=== PATIENT | male | born 1970 | race Hispanic/Latino ===

== ENCOUNTER 2020-07-10 17:37 | Emergency (ER) | payer SELFPAY ==
[~2020-07-10] VITALS: Ht 182.9 cm; Wt 106.0 kg
[2020-07-10] MEDS ORDERED: LANTINJ4 SC (17:50)
[2020-07-10] MEDS ORDERED: cefTRIAXone SOD 1 GM in D5W MINI-BAG PLUS 50 ML IV ONE (18:30)
[2020-07-10 19:13] LABS: BASO % 0.5 % (0.0-1.0); EOS # 0.2 10^3/uL (0.0-0.5); EOS % 2.4 % (0.0-3.0); HEMATOCRIT 42.7 % (42.0-52.0); HEMOGLOBIN 14.2 g/dl (13.5-17.5); LYMPH # 2.1 10^3/uL (1.5-5.0); LYMPH % 27.6 % (24.0-44.0); MEAN CORPUSCULAR HEMOGLOBIN 28.7 pg (27.0-33.0); MEAN CORPUSCULAR HGB CONC 33.3 g/dl (32.0-36.5); MEAN CORPUSCULAR VOLUME 86.4 fl (80.0-96.0); MONO # 0.7 10^3/uL (0.0-0.8); MONO % 9.4 % (0.0-5.0); NEUTROPHILS # 4.5 10^3/uL (1.5-8.5); PLATELET COUNT, AUTOMATED 190 10^3/uL (150-450); RED BLOOD COUNT 4.94 10^6/uL (4.30-6.10); WHITE BLOOD COUNT 7.4 10^3/uL (4.0-10.0)
[2020-07-10 19:35] LABS: ERYTHROCYTE SEDIMENTATION RATE 25 mm/hr (0-15)
[2020-07-10 19:46] LABS: C REACTIVE PROTEIN QUANTITATIV 1.89 MG/DL (0.00-0.30); CALCIUM LEVEL 8.6 MG/DL (8.5-10.1); CREATININE FOR GFR 1.7 MG/DL (0.70-1.30); POTASSIUM SERUM 4.5 MEQ/L (3.5-5.1)
[2020-07-10] MEDS ORDERED: NS 1,000 ML IV ONE (20:00)
[2020-07-10 20:29] LABS: ACETONE/KETONE 0.89 MG/DL (<2.81); MAGNESIUM LEVEL 2.1 MG/DL (1.8-2.4); PHOSPHORUS LEVEL 4.2 MG/DL (2.5-4.9)
[2020-07-10] MEDS ORDERED: LEVEMIR (INSULIN DETEMIR) 1 UNITS/0.01ML SC ONE (20:45)
[2020-07-10 20:50] LABS: VENOUS HCO3 23.2 MEQ/L (23.0-27.0); VENOUS O2 SATURATION 94.4 % (60.0-80.0); VENOUS PARTIAL PRESSURE CO2 41.3 mmHg (38.0-50.0); VENOUS PARTIAL PRESSURE O2 71.4 mmHg (30.0-50.0); VENOUS PH 7.368 UNITS (7.330-7.430); VENOUS STANDARD HCO3 22.8 MEQ/L; VENOUS TOTAL CO2 24.5 MEQ/L (24.0-28.0)
--- NOTE | 2020-07-10 20:50 | REPVR ---
PROCEDURE INFORMATION: Exam: US Left Non-Vascular Joint or Other Extremity Structure, Limited Lower Extremity Exam date and time: 07/10/2020 8:35 PM Age: 50 years old Clinical indication: Pain and injury or trauma; Other: Patient hit lateral leg on corner; Ankle; Left; Edema is localized; Blunt trauma; Injury date: 07/03/2020; Additional info: Res swollen, RO abscess TECHNIQUE: Imaging protocol: Left US joint or other nonvascular extremity structure or structures. Real-time ultrasound with image documentation. Limited study. Exam focused on the lower extremity in the region of clinical interest. COMPARISON: No relevant prior studies available. FINDINGS: Soft tissues: Scanning in the area of interest demonstrates edema with a hypoechoic elongated collection measuring 12 x 14 x 4 mm which may reflect seroma, hematoma or possibly abscess. IMPRESSION: In the area of interest, there is subcutaneous edema with an elongated fluid collection measuring 12 x 14 x 4 mm which may reflect seroma, hematoma or possibly abscess. Electronically signed by: Bronson Vogel On 07/10/2020 20:50:41 PM
[2020-07-10 21:32] LABS: ESTIMATED AVERAGE GLUCOSE 355 MG/DL (60-110)
[2020-07-10 21:36] LABS: HEMOGLOBIN A1c > 14.0 %
--- NOTE | 2020-07-10 21:52 | REPVR ---
PROCEDURE INFORMATION: Exam: XR Left Tibia and Fibula Exam date and time: 07/10/2020 9:46 PM Age: 50 years old Clinical indication: Other: Red/swollen distal tib-fib laterally; Additional info: Red, swollen area TECHNIQUE: Imaging protocol: XR Left tibia and fibula. Views: 2 views. COMPARISON: No relevant prior studies available. FINDINGS: Bones/joints: Normal. No fracture. Soft tissues: Normal. IMPRESSION: Negative left tibia and fibula. Electronically signed by: Bronson Vogel On 07/10/2020 21:52:25 PM
[2020-07-10] MEDS ORDERED: METOPROLOL TART 25 MG TABLET PO ONE (22:00)
[2020-07-10] MEDS ORDERED: METOPROLOL 5 MG/5 ML VIAL IV STA (22:02)
[2020-07-10 22:11] VITALS: BP 202/123
--- NOTE | 2020-07-10 22:23 | ECGEPIP ---
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
[2020-07-10 23:10] VITALS: BP 168/110
[2020-07-10] MEDS ORDERED: BACT800T5 PO (23:20)
--- NOTE | 2020-07-12 09:09 | ED PDOC ---
Post-Departure Follow-Up marisela osullivan faxed formal report of extremity us for fu Marleni Henson MD Jul 12, 2020 09:09
== END 2020-07-10 23:33 | disposition home or self-care (01) ==
LOC: M ED 17:37
DX: L03.116 Cellulitis of left lower limb (principal); E11.9 Type 2 diabetes mellitus without complications; I10 Essential (primary) hypertension; I25.10 Atherosclerotic heart disease of native coronary artery without angina pectoris; Z79.4 Long term (current) use of insulin
CPT/HCPCS: 73590; 76882; 80048; 82010; 82803; 83036; 83605; 83735; 83930; 84100; 85025; 85652; 86140; 87040; 93005; 96365; 96372; 96375; 99284; J0696

== ENCOUNTER 2020-11-06 14:40 | Emergency (ER) | payer MEDICAID, OTHER ==
[~2020-11-06] VITALS: Ht 182.9 cm; Wt 105.3 kg
[~2020-11-06 14:40] MED LIST: BACT800T5 PO; LANTINJ4 SC
[2020-11-06] MEDS ORDERED: ATOR80TA59 PO (14:53)
[2020-11-06] MEDS ORDERED: METO50TA7 PO (14:53)
[2020-11-06] MEDS ORDERED: CLOP75TA2 PO (14:53)
[2020-11-06] MEDS ORDERED: JARD1TAB3 PO (14:53)
[2020-11-06] MEDS ORDERED: LISI10TA22 PO (14:53)
[2020-11-06 15:20] LABS: BASO # 0.1 10^3/uL (0.0-0.2); BASO % 0.7 % (0.0-1.0); EOS # 0.2 10^3/uL (0.0-0.5); EOS % 1.5 % (0.0-3.0); HEMATOCRIT 42.5 % (42.0-52.0); HEMOGLOBIN 13.9 g/dl (13.5-17.5); LYMPH # 1.7 10^3/uL (1.5-5.0); LYMPH % 14.2 % (24.0-44.0); MEAN CORPUSCULAR HEMOGLOBIN 28.7 pg (27.0-33.0); MEAN CORPUSCULAR HGB CONC 32.7 g/dl (32.0-36.5); MEAN CORPUSCULAR VOLUME 87.6 fl (80.0-96.0); MONO # 0.9 10^3/uL (0.0-0.8); MONO % 7.3 % (2.0-8.0); NEUTROPHILS % 75.9 % (36.0-66.0); PLATELET COUNT, AUTOMATED 259 10^3/uL (150-450); RED BLOOD COUNT 4.85 10^6/uL (4.30-6.10); WHITE BLOOD COUNT 11.8 10^3/uL (4.0-10.0)
[2020-11-06] MEDS ORDERED: ISOVUE-370 76% 100ML VIAL As Ordered ONE (15:43)
[2020-11-06 15:52] LABS: ALBUMIN 2.6 GM/DL (3.2-5.2); ALT/SGPT 20 U/L (12-78); BILIRUBIN,DIRECT < 0.1 MG/DL (0.0-0.2); BILIRUBIN,TOTAL 0.4 MG/DL (0.2-1.0); CK-MB VALUE MASS 2.5 NG/ML (<3.6); CPK CREATINE PHOSPHOKINASE 194 U/L (39-308); LIPASE 238 U/L (73-393); MB/CK RELATIVE INDEX 1.29 (< OR =4); TOTAL PROTEIN 6.9 GM/DL (6.4-8.2); TROPONIN I < 0.02 NG/ML (< 0.10)
[2020-11-06] MEDS ORDERED: NS 500 ML IV ONE ×2 (16:45→17:45)
--- NOTE | 2020-11-06 17:04 | REP ---
INDICATION: abdominal pain COMPARISON: None. TECHNIQUE: CT Scan of the abdomen and pelvis was performed with intravenous administration of 100 cc of Isovue 370, without oral contrast. Sagittal and coronal reconstruction images are performed. FINDINGS: Lung bases: There is elevation of the right hemidiaphragm with bilateral fibro atelectatic change.. Liver: Normal Gallbladder: Unremarkable. Spleen: Normal. Adrenals: Normal. Pancreas: Normal. Kidneys: The right kidney is atrophic. There is a 1 cm cyst in the upper pole right kidney. There is no hydronephrosis bilaterally. Small and large bowel: Unremarkable. Free fluid: None. Abdominal aorta: No aneurysm or dissection. Adenopathy: None. Appendix: Not inflamed. Osseous structures: There are degenerative changes of the spine without compression deformity. Pelvis: No mass. IMPRESSION: No acute findings in the abdomen or pelvis. <Electronically signed by Vincenzo Moyer > 11/06/20 [id number]
[2020-11-06 17:49] LABS: CHLAMYDIA DNA AMPLIFICATION NEGATIVE (NEGATIVE); GC DNA AMPLIFICATION NEGATIVE (NEGATIVE)
[2020-11-06] MEDS ORDERED: CEFD300CAP PO ×2 (17:53→18:56)
[2020-11-06 19:01] VITALS: BP 190/120
--- NOTE | 2020-11-07 19:43 | ECGEPIP ---
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
== END 2020-11-06 19:04 | disposition home or self-care (01) ==
LOC: M ED 14:40
DX: N34.1 Nonspecific urethritis (principal); K59.00 Constipation, unspecified; I10 Essential (primary) hypertension; N30.00 Acute cystitis without hematuria; I25.10 Atherosclerotic heart disease of native coronary artery without angina pectoris; Z95.5 Presence of coronary angioplasty implant and graft; E11.9 Type 2 diabetes mellitus without complications; E78.5 Hyperlipidemia, unspecified; Z95.1 Presence of aortocoronary bypass graft; Z79.4 Long term (current) use of insulin; Z79.899 Other long term (current) drug therapy
CPT/HCPCS: 74177; 80047; 80076; 81001; 82550; 82553; 83690; 85025; 87086; 87661; 93005; 96360; 96361; 99284; Q9967

== ENCOUNTER 2020-12-23 10:34 | Inpatient (IN) | payer OTHER ==
[2020-12-23] VITALS (9 sets, daily range): BP systolic 100–138; BP diastolic 62–85
[~2020-12-23] VITALS: Ht 182.9 cm; Wt 106.6 kg
[~2020-12-23 10:34] MED LIST changes: +ATOR80TA59 PO; +CEFD300CAP PO; +CLOP75TA2 PO; +JARD1TAB3 PO; +LISI10TA22 PO; +METO50TA7 PO
[2020-12-23] MEDS ORDERED: NS 1,000 ML IV ONE ×3 (11:15→13:05)
[2020-12-23 11:49] LABS: ABG BASE EXCESS -13.1 (-2.0-2.0); ABG HCO3 11.5 MEQ/L (22.0-26.0); ABG O2 SATURATION 98.7 % (95.0-99.0); ABG PARTIAL PRESSURE CO2 24.5 mmHg (35.0-45.0); ABG PARTIAL PRESSURE O2 131.9 mmHg (75.0-100.0); ABG STANDARD HCO3 14.5 MEQ/L (22.0-26.0); ABG TOTAL CO2 12.3 MEQ/L (22.0-29.0); ABG pH (ARTERIAL) 7.291 UNITS (7.350-7.450)
[2020-12-23 11:59] LABS: HEMOGLOBIN 13.9 g/dl (13.5-17.5); MEAN CORPUSCULAR HEMOGLOBIN 28.8 pg (27.0-33.0); MEAN CORPUSCULAR HGB CONC 30.2 g/dl (32.0-36.5); MEAN CORPUSCULAR VOLUME 95.2 fl (80.0-96.0); PLATELET COUNT, AUTOMATED 283 10^3/uL (150-450); RED BLOOD COUNT 4.83 10^6/uL (4.30-6.10)
[2020-12-23 12:01] LABS: WHITE BLOOD COUNT 31.4 10^3/uL (4.0-10.0)
[2020-12-23] MEDS ORDERED: LIDOCAINE 2% 5ML JELLY UROJET TOP ONE (12:05)
--- NOTE | 2020-12-23 12:12 | REP ---
INDICATION: DKA. COMPARISON: No comparison chest x-ray. TECHNIQUE: Portable upright AP chest radiograph. FINDINGS: Right hemidiaphragm is somewhat elevated. There prior sternotomy wires and mediastinal clips noted. Heart is not enlarged.. The lungs are otherwise well inflated and free of infiltrate. Minimal platelike atelectasis is suspected in the right base. No infiltrate is seen. Pleural angles are sharp. No acute bony abnormality. IMPRESSION: Prior median sternotomy. Elevated right hemidiaphragm. Suspected platelike atelectasis right base. Otherwise no acute disease.. <Electronically signed by Ricardo Ann > 12/23/20 [id number]
--- NOTE | 2020-12-23 12:13 | REP ---
INDICATION: fall. COMPARISON: None. TECHNIQUE: Portably obtained AP supine view of the pelvis. Single-view. FINDINGS: Bony pelvic ring appears intact. No pelvic or sacral fracture is seen. No proximal femur fracture is appreciated. Visualized bowel gas pattern is unremarkable. IMPRESSION: Negative AP view of the pelvis. No fracture seen. <Electronically signed by Ricardo Ann > 12/23/20 [id number]
[2020-12-23 12:17] LABS: LYMPHOCYTES 2 % (16-44); MONOCYTES 4 % (0-5); NEUTROPHILS 75 % (28-66); PLATELET ESTIMATE NORMAL (NORMAL)
[2020-12-23 12:18] LABS: ANISOCYTOSIS 1+; HYPOCHROMASIA 1+; PLATELET CLUMPS SMALL AMT
[2020-12-23 12:19] LABS: TEAR DROP CELLS 1+
--- NOTE | 2020-12-23 12:28 | REP ---
INDICATION: DKA. COMPARISON: None. TECHNIQUE: Axial CT images with multiplanar reformations. FINDINGS: No acute bleed or acute large vessel territorial infarct. Ventricles, cisterns and sulci are within normal limits. No mass effect or midline shift. No abnormal fluid collections. Paranasal sinuses and mastoid air cells are clear IMPRESSION: No acute findings. <Electronically signed by Jalen Good > 12/23/20 [id number]
--- NOTE | 2020-12-23 12:30 | REP ---
INDICATION: DKA. COMPARISON: None. TECHNIQUE: Axial CT images with multiplanar reformations. FINDINGS: No acute fracture or subluxation. Prevertebral soft tissues within normal limits. Craniovertebral junction is unremarkable. On the review of axial images, no definite canal or foraminal stenosis. IMPRESSION: No acute findings. <Electronically signed by Jalen Good > 12/23/20 [id number]
[2020-12-23 12:55] LABS: AMPHETAMINES LEVEL URINE NEGATIVE (NEGATIVE); BARBITURATES URINE NEGATIVE (NEGATIVE); BENZODIAZEPINES URINE NEGATIVE (NEGATIVE); CANNABINOIDS URINE NEGATIVE (NEGATIVE); COCAINE METABOLITE URINE NEGATIVE (NEGATIVE); METHADONE URINE NEGATIVE (NEGATIVE); OPIATES URINE NEGATIVE (NEGATIVE); PHENCYCLIDINE URINE NEGATIVE (NEGATIVE)
[2020-12-23 12:59] LABS: ALBUMIN 1.9 GM/DL (3.2-5.2); ALT/SGPT 30 U/L (12-78); BILIRUBIN,DIRECT 0.2 MG/DL (0.0-0.2); BILIRUBIN,TOTAL 0.6 MG/DL (0.2-1.0); BLOOD UREA NITROGEN 73 MG/DL (7-18); CALCIUM LEVEL 8.9 MG/DL (8.5-10.1); CARBON DIOXIDE LEVEL 16 MEQ/L (21-32); CHLORIDE LEVEL 100 MEQ/L (98-107); CK-MB VALUE MASS 1.5 NG/ML (<3.6); CPK CREATINE PHOSPHOKINASE 220 U/L (39-308); CREATININE FOR GFR 2.67 MG/DL (0.70-1.30); ETHYL ALCOHOL (ETHANOL) < 0.003 % (0.000-0.010); GLOMERULAR FILTRATION RATE 27.3 (>60); LIPASE 449 U/L (73-393); MAGNESIUM LEVEL 3.9 MG/DL (1.8-2.4); MB/CK RELATIVE INDEX 0.68 (< OR =4); PHOSPHORUS LEVEL 7.5 MG/DL (2.5-4.9); POTASSIUM SERUM 5.6 MEQ/L (3.5-5.1); SODIUM LEVEL 136 MEQ/L (136-145); TOTAL PROTEIN 6.9 GM/DL (6.4-8.2); TROPONIN I < 0.02 NG/ML (< 0.10)
[2020-12-23 13:00] LABS: OSMOLALITY SERUM 375 MOSM/KG (275-295)
[2020-12-23] MEDS ORDERED: INSULIN REGULAR IN 0.9 % NACL 100 UNIT in IV 1 EA IV SCH ×2 (13:00)
[2020-12-23] MEDS ORDERED: INSULIN IV RATE CHANGE DOCUMENTATION ML/HR XX SCH (13:00)
[2020-12-23] MEDS ORDERED: HumuLIN R (REGULAR) INSULIN (NovoLIN R) **100U/ML** PER UNIT IV ONE (13:00)
[2020-12-23] MEDS ORDERED: PIPERACILLIN/TAZOBACTAM SOD 4.5 GM in D5W MINI-BAG PLUS 50 ML IV ONE (13:05)
[2020-12-23 13:18] LABS: ACETONE/KETONE > 46.00 MG/DL (<2.81); GLUCOSE, FASTING 1037 MG/DL (70-100)
[2020-12-23] MEDS ORDERED: NS 1,000 ML IV SCH (13:40)
[2020-12-23] MEDS: INSULIN REGULAR IN 0.9 % NACL 100 UNIT in IV 1 EA IV SCH ×4 (14:00→22:38)
[2020-12-23 14:04] LABS: ABG BASE EXCESS -13.3 (-2.0-2.0); ABG HCO3 10.7 MEQ/L (22.0-26.0); ABG O2 SATURATION 97.7 % (95.0-99.0); ABG PARTIAL PRESSURE CO2 21.4 mmHg (35.0-45.0); ABG PARTIAL PRESSURE O2 106.6 mmHg (75.0-100.0); ABG STANDARD HCO3 14.3 MEQ/L (22.0-26.0); ABG TOTAL CO2 11.3 MEQ/L (22.0-29.0); ABG pH (ARTERIAL) 7.316 UNITS (7.350-7.450)
--- NOTE | 2020-12-23 14:12 | HPEPDOC ---
General Date of Admission 12/23/20 Date of Service: Dec 23, 2020 Chief Complaint The patient is a 50-year-old male admitted with a reason for visit of Elevated Blood Sugar. Source: Patient Exam Limitations: No limitations Timing/Duration: Day(s) Severity: Severe History of Present Illness Patient is 50 years old male with past history of coronary artery diseases, CABG, diabetes mellitus on insulin Lantus 50 units twice a day, hyperlipidemia presented to the hospital with lethargy and altered mental status. Patient somnolent and can't provide detailed history. According to the ER physician, patient was found on the street by EMS. Patient stated that he ran out of his diabetes medication for one week. He moved to [place] from [place] recently and doesn't have PCP. In ER patient was found to have white blood count of 31.4, hemoglobin 15.9, glucose level 1037, creatinine 2.6, potassium 5.6, blood osmolarity 375, lipase level 449. Head CT negative. Chest x-ray negative for acute infiltrate. Home Medications Scheduled Atorvastatin Calcium (Atorvastatin Calcium) 80 Mg Tablet, 80 MG PO DAILY, (Reported) Clopidogrel Bisulfate (Clopidogrel) 75 Mg Tablet, 75 MG PO DAILY, (Reported) Empagliflozin (Jardiance) 25 Mg Tablet, 25 MG PO DAILY, (Reported) Lisinopril (Lisinopril) 10 Mg Tablet, 10 MG PO DAILY, (Reported) Metoprolol Tartrate (Metoprolol Tartrate) 50 Mg Tablet, 50 MG PO DAILY, (Reported) Allergies Coded Allergies: No Known Drug Allergies (Verified Allergy, Unknown, 07/10/20) Past Medical History Medical History Coronary artery diseases, status post CABG around 2-3 years ago, hyperlipidemia, diabetes mellitus type2 Family History I was not able to obtain due to lethargy Social History * Smoker: Denies Alcohol: Denies Drugs: denies A-FIB/CHADSVASC A-FIB History Current/History of A-Fib/PAF?: No Current PO Anticoag Therapy: No Review of Systems Constitutional: Reports: Chills, Malaise, Weakness; Denies: Fever Eyes: Denies: Pain ENT: Denies: Head Aches Skin: Denies: Rash Pulmonary: Denies: Cough Cardiovascular: Denies: Chest Pain Gastrointestinal: Reports: Nausea, Vomiting, Abdominal Pain Genitourinary: Reports: Dysuria, Frequency Hematologic: Denies: Bruising Endocrine: Reports: Polydipsia Musculoskeletal: Denies: Neck Pain, Back Pain Neurological: Denies: Weakness Psych: Reports: Other Psych; Denies: Thoughts of Self Harm Physical Examination General Exam: Positive: Moderate Distress, Other (somnolent male) Eye Exam: Positive: PERRLA ENT Exam: Positive: Atraumatic Neck Exam: Positive: Supple; Negative: JVD Chest Exam: Positive: Clear to auscultation Heart Exam: Positive: Tachycardic Telemetry: Positive: Sinus Abdomen Exam: Positive: BS Hypoactive Extremity Exam: Negative: Clubbing, Cyanosis Skin Exam: Positive: Breakdown (left distal leg wound stage II with surrounding erythema 3 X4 cm) Neuro Exam: Positive: Cranial Nerves 3-12 NL Psych Exam: Positive: Other (somnolent male) Vital Signs Vital Signs Date Time Temp Pulse Resp B/P (MAP) Pulse Ox O2 Delivery O2 Flow Rate FiO2 12/23/20 13:03 100 18 144/88 (106) 100 Room Air 12/23/20 10:50 96.6 Laboratory Data Labs 24H Laboratory Tests 2 12/23/20 11:30: Blood Gas Bicarbonate Standard 14.5L, Arterial Blood pH 7.291L, Arterial Blood Partial Pressure CO2 24.5L, Arterial Blood Partial Pressure O2 131.9H, Arterial Blood Total CO2 12.3L, Arterial Blood HCO3 11.5L, Arterial Blood Base Excess - 13.1L, Arterial Blood Oxygen Saturation 98.7 12/23/20 11:32: Neutrophils (%) (Auto) , Nucleated Red Blood Cells % (auto) 0.0, Neutrophils 75H, Band Neutrophils 19H, Lymphocytes (Manual) 2L, Monocytes (Manual) 4, Hypochromasia 1+, Anisocytosis 1+, Macrocytosis 1+, Tear Drop Cells 1+, Platelet Estimate NORMAL, Clumped Platelets SMALL AMT, Urine Color YELLOW, Urine Appearance HAZY, Urine pH 5.0, Urine Specific [place] 1.022, Urine Protein 2+H, Urine Glucose (UA) 3+H, Urine Ketones 1+H, Urine Blood 2+H, Urine Nitrite NEGATIVE, Urine Bilirubin NEGATIVE, Urine Urobilinogen 0.2, Urine Leukocyte Esterase NEGATIVE, Urine WBC (Auto) 29H, Urine RBC (Auto) 6H, Urine Hyaline Zachariah ts (Auto) 0, Urine Bacteria (Auto) 1+H, Urine Squamous Epithelial Cells 0, Urine Mucus (Auto) SMALL, Urine Sperm (Auto) , Anion Gap 20H, Glomerular Filtration Rate 27.3L, Osmolality 375H, Calcium Level 8.9, Phosphorus Level 7.5H, Magnesium Level 3.9H, Total Bilirubin 0.6, Direct Bilirubin 0.2, Aspartate Amino Transf (AST/SGOT) 25, Alanine Aminotransferase (ALT/SGPT) 30, Alkaline Phosphatase 291H, Total Creatine Kinase 220, Creatine Kinase MB 1.5, Creatine Kinase MB Relative Index 0.68, Troponin I < 0.02, Total Protein 6.9, Albumin 1.9L, Albumin/Globulin Ratio 0.4, Lipase 449H, Urine Opiates Screen NEGATIVE, Urine Methadone Screen NEGATIVE, Urine Barbiturates Screen NEGATIVE, Urine Phencyclid ine Screen NEGATIVE, Urine Amphetamines Screen NEGATIVE, Urine Benzodiazepines Screen NEGATIVE, Urine Cocaine Metabolite Screen NEGATIVE, Urine Cannabinoids Screen NEGATIVE, Ethyl Alcohol Level < 0.003, B-Hydroxybutyrate > 46.00H 12/23/20 11:33: CBC/BMP Laboratory Tests 12/23/20 11:32 Microbiology Microbiology 12/23/20 Respiratory Virus Panel (PCR) (CHIDI) - Final, Complete 12/23/20 Urine Culture, Received Pending 12/23/20 Blood Culture, Received Pending Assessment/Plan Patient is 50 years old male with past history of coronary artery diseases, CABG, diabetes mellitus on insulin Lantus 50 units twice a day, hyperlipidemia presented to the hospital with lethargy and altered mental status. Patient somnolent and can't provide detailed history. According to the ER physician, patient was found on the street by EMS. Patient stated that he ran out of his diabetes medication for one week. He moved to [place] from [place] recently and doesn't have PCP. In ER patient was found to have white blood count of 31.4, hemoglobin 15.9, glucose level 1037, creatinine 2.6, potassium 5.6, blood osmolarity 375, lipase level 449. Head CT negative. Chest x-ray negative for acute infiltrate. Problems (1) DKA (diabetic ketoacidoses) Status: Acute Problem Text: Secondary to noncompliance to insulin Insulin drip IV BMP every 2 hours times 3 then q4h Aggressive IV fluid Monitor ABG (2) Sepsis Status: Acute Problem Text: Patient has tachycardia, leukocytosis, tachypnea on admission Most likely source of infection left distal leg stage II] Will proceed with CT abdomen/pelvis/CT chest IV fluid Ceftaroline IV MRSA screen Await blood culture, procalcitonin (3) Cellulitis Status: Acute Problem Text: Stage II unhealed wound with surrounding erythema MRSA screen Ceftaroline IV (4) Acute renal failure Status: Acute Problem Text: Most likely secondary to dehydration due to DKA IV fluid Continue to monitor (5) Leg ulcer, left Status: Acute Problem Text: wound care consult Plan / VTE VTE Prophylaxis Ordered?: Yes CIARA UGALDE DO Dec 23, 2020 14:12
--- NOTE | 2020-12-23 14:30 | REP ---
INDICATION: elev wbc dka. COMPARISON: None TECHNIQUE: Limited noncontrast enhanced chest CT obtained using standard helical technique. FINDINGS: There is no gross mediastinal or hilar adenopathy. There are no pleural or pericardial effusions. The imaged osseous structures are within normal limits. The patient is status post previous median sternotomy. Evaluation of the lung veronica shows numerable scattered pulmonary nodules and asymmetric densities. These vary in size from 3 mm to over a cm. The are too numerous to count or individually assess. IMPRESSION: Limited noncontrast enhanced examination shows abnormal lung veronica as described above. Neoplastic versus infectious versus atelectatic in etiology. Three-month follow-up diagnostic contrast-enhanced CT examination of the chest is recommended as per the revised Fleischner society criteria. Certainly, if clinically warranted PET-CT could be obtained. <Electronically signed by Ty Mcdaniel > 12/23/20 0141
--- NOTE | 2020-12-23 14:41 | REP ---
INDICATION: elev wbc dka. COMPARISON: 11/06/2020 the latest prior a contrast-enhanced exam TECHNIQUE: Limited noncontrast enhanced CT examination of the abdomen and pelvis using standard helical technique and without the administration of oral bowel preparatory contrast. FINDINGS: Limited evaluation of the solid intra-abdominal organs and gallbladder show no gross abnormalities or significant changes from the prior exam. Limited evaluation of the pancreas and adrenal glands show no gross abnormalities or significant changes from the prior exam. Limited evaluation of the adrenal glands and right kidney show no gross abnormalities or significant changes from the prior exam. Chronic right renal atrophic changes are again noted. Moderate left-sided hydronephrosis and hydroureter has developed since the last exam. There is mild associated Antonina ureteral edema. There is rather extensive perivesicular edema with abnormal thickening of the posterior and left urinary bladder fernandez no definite urinary collecting system calcifications are identified. Note is again made of calcifications within the seminal vesicles and pelvic vascular structures status quo. Limited evaluation of the bowel loops show no abnormalities or significant changes from the prior exam. Limited evaluation of the abdominal aorta and para aortic regions show no gross abnormalities or significant changes from the prior exam. Bone window technique throughout the examination shows the osseous structures to be within normal limits. IMPRESSION: There is abnormal thickening of the fernandez of the urinary bladder, as described above, along with perivesicular fatty infiltration. This is seen in conjunction with reactive left-sided hydronephrosis and hydroureter with both findings likely secondary to urosepsis. Certainly, this would need to be correlated clinically. Other findings as described above. <Electronically signed by Ty Mcdaniel > 12/23/20 [id number]
[2020-12-23 15:35] LABS: CALCIUM LEVEL 8.7 MG/DL (8.5-10.1); CREATININE FOR GFR 2.67 MG/DL (0.70-1.30); GLOMERULAR FILTRATION RATE 27.3 (>60); POTASSIUM SERUM 4.2 MEQ/L (3.5-5.1)
[2020-12-23] MEDS ORDERED: CLOPIDOGREL 75 MG TAB PO ONE (16:00)
[2020-12-23] MEDS ORDERED: ATORVASTATIN 20 MG TAB PO ONE (16:00)
[2020-12-23 16:16] LABS: ABG BASE EXCESS -7.3 (-2.0-2.0); ABG HCO3 15.6 MEQ/L (22.0-26.0); ABG O2 SATURATION 95.5 % (95.0-99.0); ABG PARTIAL PRESSURE CO2 25.6 mmHg (35.0-45.0); ABG PARTIAL PRESSURE O2 75.7 mmHg (75.0-100.0); ABG STANDARD HCO3 18.5 MEQ/L (22.0-26.0); ABG TOTAL CO2 16.4 MEQ/L (22.0-29.0); ABG pH (ARTERIAL) 7.404 UNITS (7.350-7.450)
[2020-12-23] MEDS: PANTOPRAZOLE 40MG VIAL (C9113 PER 1) IV SCH (16:23)
[2020-12-23] MEDS: CEFTAROLINE FOSAMIL 400 MG in D5W MINI-BAG PLUS 50 ML IV SCH (16:25)
[2020-12-23] MEDS: KCL 20MEQ in NS 1000ML 1,000 ML IV SCH ×2 (16:38→22:05)
[2020-12-23 16:57] LABS: CALCIUM LEVEL 8.6 MG/DL (8.5-10.1); CREATININE FOR GFR 2.47 MG/DL (0.70-1.30); GLOMERULAR FILTRATION RATE 29.9 (>60)
[2020-12-23 16:58] LABS: POTASSIUM SERUM 5.2 MEQ/L (3.5-5.1)
[2020-12-23 18:43] LABS: CALCIUM LEVEL 9.2 MG/DL (8.5-10.1); CREATININE FOR GFR 2.52 MG/DL (0.70-1.30); GLOMERULAR FILTRATION RATE 29.2 (>60); POTASSIUM SERUM 4.3 MEQ/L (3.5-5.1)
[2020-12-23 19:12] LABS: HEMOGLOBIN A1c > 14.0 %
[2020-12-23 20:40] LABS: CALCIUM LEVEL 9.2 MG/DL (8.5-10.1); CREATININE FOR GFR 2.62 MG/DL (0.70-1.30); GLOMERULAR FILTRATION RATE 27.9 (>60); PHOSPHORUS LEVEL 2.6 MG/DL (2.5-4.9); POTASSIUM SERUM 4.8 MEQ/L (3.5-5.1)
[2020-12-23] MEDS ORDERED: CEFTAROLINE FOSAMIL 200 MG in D5W 50 ML IV SCH (21:00)
[2020-12-23] MEDS: ACETAMINOPHEN TAB 650MG DOSE (2X325MG) PO PRN (21:11)
--- NOTE | 2020-12-23 22:03 | IPNPDOC ---
Text Note Date of Service The patient was seen on 12/23/20. NOTE #pseudohypernatremia Increase in Na from 143 to 162 likely lab error. The repeat Na was 145 Plan: will c/w current fluids VS,Fishbone, I+O VS, Fishbone, I+O Laboratory Tests 12/23/20 11:32 12/23/20 14:49 12/23/20 15:54 12/23/20 17:52 12/23/20 19:53 12/23/20 21:12 Vital Signs Date Time Temp Pulse Resp B/P (MAP) Pulse Ox O2 Delivery O2 Flow Rate FiO2 12/23/20 20:00 100.0 132 19 138/82 (100) 93 Room Air ROSEANN STEPHENSON MD Dec 23, 2020 22:03
[2020-12-23 22:18] LABS: ABG BASE EXCESS -2.3 (-2.0-2.0); ABG PARTIAL PRESSURE CO2 27.8 mmHg (35.0-45.0); ABG STANDARD HCO3 22.4 MEQ/L (22.0-26.0); ABG TOTAL CO2 20.8 MEQ/L (22.0-29.0); ABG pH (ARTERIAL) 7.474 UNITS (7.350-7.450)
[2020-12-23] MEDS: INSULIN IV RATE CHANGE DOCUMENTATION ML/HR XX SCH (23:02)
[2020-12-24] VITALS (18 sets, daily range): BP systolic 106–198; BP diastolic 63–99
[2020-12-24] MEDS: INSULIN IV RATE CHANGE DOCUMENTATION ML/HR XX SCH ×7 (00:05→09:05)
[2020-12-24] MEDS ORDERED: NS 1,000 ML IV ONE ×2 (00:35→02:20)
[2020-12-24 01:43] LABS: MAGNESIUM LEVEL 3.1 MG/DL (1.8-2.4); PHOSPHORUS LEVEL 2.6 MG/DL (2.5-4.9); THYROID STIMULATING HORMONE 1.13 uIU/ML (0.358-3.740); TROPONIN I 0.04 NG/ML (< 0.10)
[2020-12-24] MEDS ORDERED: KCL 20MEQ IN D5/0.9%NACL 1000 ML As Ordered ONE (03:29)
[2020-12-24] MEDS: ACETAMINOPHEN TAB 650MG DOSE (2X325MG) PO PRN ×4 (03:32→20:27)
[2020-12-24] MEDS: KCL 20MEQ IN D5/NS 1000ML 1,000 ML IV SCH ×2 (03:55→08:39)
[2020-12-24 04:45] LABS: ABG BASE EXCESS -5.3 (-2.0-2.0); ABG HCO3 18.1 MEQ/L (22.0-26.0); ABG O2 SATURATION 97.4 % (95.0-99.0); ABG PARTIAL PRESSURE CO2 29.3 mmHg (35.0-45.0); ABG PARTIAL PRESSURE O2 96.3 mmHg (75.0-100.0); ABG STANDARD HCO3 20.1 MEQ/L (22.0-26.0); ABG pH (ARTERIAL) 7.409 UNITS (7.350-7.450)
[2020-12-24] MEDS: CEFTAROLINE FOSAMIL 400 MG in D5W MINI-BAG PLUS 50 ML IV SCH ×2 (05:11→16:58)
[2020-12-24 05:28] LABS: HEMATOCRIT 39.2 % (42.0-52.0); HEMOGLOBIN 12.3 g/dl (13.5-17.5); MEAN CORPUSCULAR HEMOGLOBIN 28.7 pg (27.0-33.0); MEAN CORPUSCULAR HGB CONC 31.4 g/dl (32.0-36.5); MEAN CORPUSCULAR VOLUME 91.4 fl (80.0-96.0); PLATELET COUNT, AUTOMATED 225 10^3/uL (150-450); RED BLOOD COUNT 4.29 10^6/uL (4.30-6.10); WHITE BLOOD COUNT 22.7 10^3/uL (4.0-10.0)
[2020-12-24 05:51] LABS: ANISOCYTOSIS 2+; LYMPHOCYTES 4 % (16-44); MONOCYTES 3 % (0-5); NEUTROPHILS 92 % (28-66); PLATELET ESTIMATE NORMAL (NORMAL)
[2020-12-24 05:56] LABS: ACETONE/KETONE 3.08 MG/DL (<2.81); CALCIUM LEVEL 7.8 MG/DL (8.5-10.1); CREATININE FOR GFR 2.55 MG/DL (0.70-1.30); GLOMERULAR FILTRATION RATE 28.8 (>60); MAGNESIUM LEVEL 2.9 MG/DL (1.8-2.4); PHOSPHORUS LEVEL 3.6 MG/DL (2.5-4.9); POTASSIUM SERUM 4.5 MEQ/L (3.5-5.1)
[2020-12-24] MEDS ORDERED: NS 500 ML IV ONE (06:20)
[2020-12-24] MEDS ORDERED: NS 0.45% 1,000 ML IV ONE (08:15)
[2020-12-24] MEDS ORDERED: GLUCOSE 4GM CHEW TABLET PO PRN (08:20)
[2020-12-24] MEDS ORDERED: GLUCAGON INJ 1MG VIAL SC PRN (08:20)
[2020-12-24] MEDS ORDERED: DEXTROSE 50% 50 ML SYRINGE IV PRN (08:20)
[2020-12-24] MEDS: CLOPIDOGREL 75 MG TAB PO SCH (08:29)
[2020-12-24] MEDS: PANTOPRAZOLE 40MG VIAL (C9113 PER 1) IV SCH (08:30)
[2020-12-24] MEDS: ATORVASTATIN 20 MG TAB PO SCH (08:30)
[2020-12-24] MEDS: LEVEMIR (INSULIN DETEMIR) 1 UNITS/0.01ML SC SCH ×2 (08:31→20:26)
[2020-12-24 10:04] LABS: ABG BASE EXCESS -6.7 (-2.0-2.0); ABG HCO3 16.9 MEQ/L (22.0-26.0); ABG O2 SATURATION 96.9 % (95.0-99.0); ABG PARTIAL PRESSURE CO2 28.1 mmHg (35.0-45.0); ABG PARTIAL PRESSURE O2 86.4 mmHg (75.0-100.0); ABG TOTAL CO2 17.7 MEQ/L (22.0-29.0); ABG pH (ARTERIAL) 7.396 UNITS (7.350-7.450)
[2020-12-24 10:08] LABS: ALBUMIN 1.3 GM/DL (3.2-5.2); BILIRUBIN,TOTAL 0.3 MG/DL (0.2-1.0); CALCIUM LEVEL 7.7 MG/DL (8.5-10.1); CREATININE FOR GFR 2.31 MG/DL (0.70-1.30); GLOMERULAR FILTRATION RATE 32.3 (>60); POTASSIUM SERUM 4.4 MEQ/L (3.5-5.1); TOTAL PROTEIN 5.2 GM/DL (6.4-8.2)
[2020-12-24 11:18] LABS: TROPONIN I 0.03 NG/ML (< 0.10)
[2020-12-24] MEDS: SODIUM CHLORIDE 23.4% INJ 40.8 MEQ in STERILE WATER LITER BAG 1,050 ML IV SCH ×2 (11:26→18:21)
--- NOTE | 2020-12-24 11:54 | IPNPDOC ---
Text Note Date of Service The patient was seen on 12/24/20. NOTE Subjective: Patient more alert and awake in the morning. He stated that he feels better, he told me that he used 50 units of Lantus twice a day from [facility] pharmacy, however our medical research tech did not receive any confirmation from [facility] pharmacy that the patient ever received insulin. Objective: GENERAL APPEARANCE: Ill looking man with vitiligo HEENT: no scleral icterus, no JVD, EOMI, dry mucous membrane CARDIOVASCULAR: S1S2 LUNGS: Diminished lung sounds bilaterally ABDOMEN: soft & not tender w palpitation MUSCULOSKELETAL: no cyanosis, no swelling, left distal leg wound stage II with surrounding erythema 3 X4 cm INTEGUMENT: no generalized pallor NEUROLOGICAL: cranial nerve function from 2-12 intact intact, follows commands, speech not dysarthric Assessment/Plan Patient is 50 years old male with past history of coronary artery diseases, CABG, diabetes mellitus on insulin Lantus 50 units twice a day, hyperlipidemia presented to the hospital with lethargy and altered mental status. Patient somnolent and can't provide detailed history. According to the ER physician, patient was found on the street by EMS. Patient stated that he ran out of his diabetes medication for one week. He moved to [place] from [place] recently and doesn't have PCP. In ER patient was found to have white blood count of 31.4, hemoglobin 15.9, glucose level 1037, creatinine 2.6, potassium 5.6, blood osmolarity 375, lipase level 449. Head CT negative. Chest x-ray negative for acute infiltrate. Problems DKA (diabetic ketoacidoses) Secondary to noncompliance to insulin Resolved after Insulin drip IV, anion gap closed, ABG CO2 28.1, in the morning showed 7.3, HCO3 16.9 BMP every 4 hours continue IV fluid Monitor ABG Sepsis Patient had tachycardia, leukocytosis, tachypnea on admission Most likely source of infection from left distal leg stage II vs UTI vs PNA on 12/23/20 CT chest Limited noncontrast enhanced examination shows abnormal lung veronica as described above. Neoplastic versus infectious versus atelectatic in etiology. on 12/23/20 CT examination of the abdomen and pelvis Moderate left-sided hydronephrosis and hydroureter has developed since the last exam. There is mild associated Antonina ureteral edema We'll check urine culture, renal ultrasound On 12/24/20 preliminary blood culture positive for Staphylococcus aureus. MRSA screen negative. TTE ordered Procalcitonin 23.7 - continue Ceftaroline IV day 2 Continue IV fluid Cellulitis Stage II unhealed wound with surrounding erythema Appreciate/agree with wound care consult Ceftaroline IV Acute renal failure/Oliguria Most likely secondary to dehydration due to DKA Continue IV fluid Renal ultrasound Hypernatremia IV fluid changed to 1/4 NS Continue to monitor BMP every 4 hours Leg ulcer, left wound care consult Coronary artery diseases Status post CABG, patient stated that was around 2 years ago. Continue atorvastatin, clopidogrel Patient stated that he didn't take beta blockers. Elevated troponin On 12/24/20 troponin was elevated to 0.04 Patient denied any chest pain EKG negative for ischemic changes Troponin trended down VS,Gabbye, I+O VS, Srinivasbone, I+O Laboratory Tests 12/23/20 11:32 12/23/20 14:49 12/23/20 15:54 12/23/20 17:52 12/23/20 19:53 12/23/20 21:12 12/24/20 04:59 12/24/20 08:21 Vital Signs Date Time Temp Pulse Resp B/P (MAP) Pulse Ox O2 Delivery O2 Flow Rate FiO2 12/24/20 11:00 101.7 114 112/64 (80) 12/24/20 08:00 11 95 Nasal Cannula 2.0 I&O- Last 24 Hours up to 6 AM 12/24/20 06:00 Intake Total 4255 ml Output Total 1340 ml Balance 2915 ml CIARA UGALDE DO Dec 24, 2020 11:54
[2020-12-24] MEDS: HumaLOG INSULIN (NovoLOG) PER UNIT SC SCH ×2 (12:17→16:59)
[2020-12-24 12:55] LABS: HEMATOCRIT 34.4 % (42.0-52.0); HEMOGLOBIN 11.1 g/dl (13.5-17.5); MEAN CORPUSCULAR HEMOGLOBIN 29.1 pg (27.0-33.0); MEAN CORPUSCULAR HGB CONC 32.3 g/dl (32.0-36.5); MEAN CORPUSCULAR VOLUME 90.3 fl (80.0-96.0); PLATELET COUNT, AUTOMATED 208 10^3/uL (150-450); RED BLOOD COUNT 3.81 10^6/uL (4.30-6.10); WHITE BLOOD COUNT 18.8 10^3/uL (4.0-10.0)
[2020-12-24 13:22] LABS: MONOCYTES 2 % (0-5); NEUTROPHILS 93 % (28-66); PLATELET ESTIMATE NORMAL (NORMAL)
[2020-12-24 13:29] LABS: CALCIUM LEVEL 7.2 MG/DL (8.5-10.1); CREATININE FOR GFR 2.26 MG/DL (0.70-1.30); GLOMERULAR FILTRATION RATE 33.1 (>60); MAGNESIUM LEVEL 2.7 MG/DL (1.8-2.4); POTASSIUM SERUM 5.4 MEQ/L (3.5-5.1)
--- NOTE | 2020-12-24 13:49 | CR ---
CONSULTATION DATE: 12/24/2020 CONSULTATION REQUESTED BY: Dr. Moreno David REASON FOR CONSULTATION: Treatment of left lower extremity wound. 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 Patient is in the intensive care unit (ICU) at this time, stabilized, and I have been asked to evaluate and give treatment recommendations for a left lower extremity lateral supramalleolar wound. This wound measures 4.0 cm x 2.0 cm with a wound depth of 0.2 cm. The wound base appears relatively clean with scant serosanguineous drainage. There is no undermining seen, and the wound edges are closed. Periwound shows minimal erythema, and there is 1+ edema involving the left lower extremity. TREATMENT RECOMMENDATIONS: Clean the wound with Vashe wound cleanser by soaking a 4 x 4 with the Vashe and applying it to the wound for 10 minutes. Remove that dressing, irrigate with saline, pat dry, and apply Santyl, a nickel thick, to the wound and cover with a foam dressing. This should be done on a daily basis. Patient may be out of bed as tolerated. Inspection of the heel shows no erythema, discoloration, and as the patient is alert and oriented and is out of bed periodically, a heel float boot is not indicated at this time. Any discoloration or nonblanching erythema involving the heel would raise the question of a stage I pressure injury which is treated with a protective foam and a heel float boot. Wound care telemedicine provides a visual assessment of a wound without the benefit of physical examination. It can assist with establishing a diagnosis and an etiology. This allows for an initial treatment plan. As wounds often change, it may be necessary to modify the original care. Our recommendation is periodic followup for wound reassessment to monitor wound treatment and progress. Failure to comply may result in nonhealing of the wound, possible complications, and/or a poor outcome. The recommendations given will serve as treatment options. As I will not be following this patient, this care plan and will require the attending physician to give and sign the orders. Upon discharge, outpatient follow-up can be scheduled at our wound care center [facility]
--- NOTE | 2020-12-24 14:34 | REP ---
INDICATION: left hydronephrosis. COMPARISON: None. FINDINGS: Multiple ultrasonographic images of the right kidney show the right kidney to measure 10.8 x 4.5 x 4.7 cm. The renal cortical echotexture is thinned but otherwise unremarkable. There are no masses. There is good corticomedullary differentiation. There is no hydronephrosis. There are no perinephric fluid collections. In the midpole region there is a 1 cm sized anechoic structure which exhibits posterior wall enhancement and increased through transmission Multiple ultrasonographic images of the left kidney show the left kidney to measure 15.0 x 6.3 x 7.9 cm. The renal cortical echotexture is unremarkable. There are no masses. There is good corticomedullary differentiation. There is mild hydronephrosis. There are no perinephric fluid collections. IMPRESSION: 1. Thinned right renal cortex slightly secondary to chronic change. There is an incidental simple right renal cyst. 2. There is mild left-sided hydronephrosis. <Electronically signed by Ty Mcdaniel > 12/24/20 [id number]
[2020-12-24 16:44] LABS: CALCIUM LEVEL 7.2 MG/DL (8.5-10.1); CREATININE FOR GFR 2.3 MG/DL (0.70-1.30); GLOMERULAR FILTRATION RATE 32.5 (>60); MAGNESIUM LEVEL 2.6 MG/DL (1.8-2.4)
[2020-12-24] MEDS: SANTYL OINT 30GM TOP SCH (16:58)
[2020-12-24] MEDS ORDERED: HumaLOG INSULIN (NovoLOG) PER UNIT SC STA (17:22)
--- NOTE | 2020-12-24 19:38 | ECGEPIP ---
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
[2020-12-24 20:51] LABS: CALCIUM LEVEL 7.4 MG/DL (8.5-10.1); CREATININE FOR GFR 2.31 MG/DL (0.70-1.30); GLOMERULAR FILTRATION RATE 32.3 (>60); MAGNESIUM LEVEL 2.6 MG/DL (1.8-2.4); POTASSIUM SERUM 4.6 MEQ/L (3.5-5.1)
[2020-12-24] MEDS ORDERED: HumaLOG INSULIN (NovoLOG) PER UNIT SC SCH (21:00)
[2020-12-25] VITALS (21 sets, daily range): BP systolic 100–213; BP diastolic 58–112
[2020-12-25 00:48] LABS: CALCIUM LEVEL 7.1 MG/DL (8.5-10.1); CREATININE FOR GFR 2.25 MG/DL (0.70-1.30); GLOMERULAR FILTRATION RATE 33.3 (>60); MAGNESIUM LEVEL 2.6 MG/DL (1.8-2.4); POTASSIUM SERUM 4.7 MEQ/L (3.5-5.1)
[2020-12-25] MEDS: SODIUM CHLORIDE 23.4% INJ 40.8 MEQ in STERILE WATER LITER BAG 1,050 ML IV SCH ×3 (01:23→16:00)
[2020-12-25] MEDS: ACETAMINOPHEN TAB 650MG DOSE (2X325MG) PO PRN ×3 (03:08→16:18)
[2020-12-25] MEDS ORDERED: ACETAMINOPHEN *IV* 650 MG in IV 1 EA IV ONE (03:30)
[2020-12-25] MEDS: CEFTAROLINE FOSAMIL 400 MG in D5W MINI-BAG PLUS 50 ML IV SCH ×2 (04:42→16:19)
--- NOTE | 2020-12-25 04:59 | REPVR ---
PROCEDURE INFORMATION: Exam: XR Chest Exam date and time: 12/25/2020 3:52 AM Age: 50 years old Clinical indication: Fever; Additional info: Worsening fever > 102 and chills TECHNIQUE: Imaging protocol: XR of the chest. Views: 1 view. COMPARISON: CT Chest without contrast 12/23/2020 2:05 PM FINDINGS: Lungs: Bilateral perihilar and bibasilar reticulonodular and ground-glass opacities. Pleural spaces: Unremarkable. No pleural effusion. No pneumothorax. Heart/Mediastinum: Cardiomegaly. Diaphragm: Elevated right hemidiaphragm. Bones/joints: Status post median sternotomy and CABG. IMPRESSION: Bilateral perihilar and bibasilar reticulonodular and ground-glass opacities. Electronically signed by: Victor Manuel Shipman On 12/25/2020 05:00:10 AM
[2020-12-25 05:28] LABS: CALCIUM LEVEL 7.1 MG/DL (8.5-10.1); CREATININE FOR GFR 2.17 MG/DL (0.70-1.30); GLOMERULAR FILTRATION RATE 34.7 (>60); MAGNESIUM LEVEL 2.5 MG/DL (1.8-2.4); POTASSIUM SERUM 4.7 MEQ/L (3.5-5.1)
[2020-12-25 06:25] LABS: HEMATOCRIT 34.7 % (42.0-52.0); HEMOGLOBIN 10.9 g/dl (13.5-17.5); MEAN CORPUSCULAR HEMOGLOBIN 28.4 pg (27.0-33.0); MEAN CORPUSCULAR HGB CONC 31.4 g/dl (32.0-36.5); MEAN CORPUSCULAR VOLUME 90.4 fl (80.0-96.0); PLATELET COUNT, AUTOMATED 198 10^3/uL (150-450); RED BLOOD COUNT 3.84 10^6/uL (4.30-6.10); WHITE BLOOD COUNT 15.9 10^3/uL (4.0-10.0)
[2020-12-25 06:46] LABS: CALCIUM LEVEL 7.2 MG/DL (8.5-10.1); CREATININE FOR GFR 2.18 MG/DL (0.70-1.30); GLOMERULAR FILTRATION RATE 34.5 (>60); POTASSIUM SERUM 4.5 MEQ/L (3.5-5.1)
[2020-12-25 07:03] LABS: LYMPHOCYTES 4 % (16-44); MONOCYTES 2 % (0-5); NEUTROPHILS 86 % (28-66)
[2020-12-25 07:07] LABS: PLATELET ESTIMATE NORMAL (NORMAL)
[2020-12-25] MEDS: HumaLOG INSULIN (NovoLOG) PER UNIT SC SCH ×4 (07:48→22:10)
[2020-12-25] MEDS: ATORVASTATIN 20 MG TAB PO SCH (07:49)
[2020-12-25] MEDS: LEVEMIR (INSULIN DETEMIR) 1 UNITS/0.01ML SC SCH (07:49)
[2020-12-25] MEDS: PANTOPRAZOLE 40MG VIAL (C9113 PER 1) IV SCH (07:49)
[2020-12-25] MEDS: CLOPIDOGREL 75 MG TAB PO SCH (07:51)
[2020-12-25] MEDS: SANTYL OINT 30GM TOP SCH (07:52)
[2020-12-25 08:37] LABS: CALCIUM LEVEL 7.2 MG/DL (8.5-10.1); CREATININE FOR GFR 2.15 MG/DL (0.70-1.30); GLOMERULAR FILTRATION RATE 35.1 (>60); MAGNESIUM LEVEL 2.7 MG/DL (1.8-2.4); PHOSPHORUS LEVEL 2.3 MG/DL (2.5-4.9)
[2020-12-25 12:41] LABS: CALCIUM LEVEL 7.7 MG/DL (8.5-10.1); CREATININE FOR GFR 2.16 MG/DL (0.70-1.30); GLOMERULAR FILTRATION RATE 34.9 (>60); POTASSIUM SERUM 4.3 MEQ/L (3.5-5.1)
--- NOTE | 2020-12-25 13:44 | IPNPDOC ---
Subjective Date Seen The patient was seen on 12/25/20. Subjective Chief Complaint/HPI patient does not offer any complaints today. Knows where he is though he cannot remember how he came to the hospital. he reports today that he ran out of insulin 3 days prior to admission. Remains febrile with T max of 103.1 and needed cooling blanket overnight. tolerated breakfast, urine output is improving. Objective Physical Examination General Exam: Positive: Alert, Cooperative, No Acute Distress Eye Exam: Positive: Conjunctiva & lids normal, EOMI ENT Exam: Positive: Atraumatic, Mucous membr. moist/pink Neck Exam: Positive: Supple; Negative: JVD Chest Exam: Positive: Clear to auscultation, Normal air movement Heart Exam: Positive: Rate Normal, Regular Rhythm, Normal S1, Normal S2; Negative: Murmurs, Rubs Telemetry: Positive: No significant arrhythmia Abdomen Exam: Positive: Normal bowel sounds, Soft; Negative: Tenderness, Hepatospenomegaly Extremity Exam: Negative: Clubbing, Cyanosis, Edema Skin Exam: Positive: Breakdown (left distal leg wound stage II ulcer 2cm X4 cm) Neuro Exam: Positive: Normal Speech, Strength at 5/5 X4 ext, Normal Tone Psych Exam: Positive: Other (somnolent male) Assessment /Plan Assessment Patient is 50 years old male with past history of coronary artery diseases, CABG, diabetes mellitus on insulin Lantus 50 units twice a day, hyperlipidemia presented to the hospital with lethargy and altered mental status. Patient was somnolent on admission and couldn't provide detailed history. According to the ER physician, patient was found on the street by EMS. Patient stated that he ran out of his diabetes medication for one week. He moved to [place] from [place] recently and doesn't have PCP. In ER patient was found to have white blood count of 31.4, hemoglobin 15.9, glucose level 1037, creatinine 2.6, potassium 5.6, blood osmolarity 375, lipase level 449. Head CT negative. Chest x-ray negative for acute infiltrate. Patient was admitted for DKA, sepsis. DKA Secondary to running out of insulin and sepsis. now resolved Carb consistent diet and Fs AC and HS. Levemir adn lispro Sepsis with MSSA bacterimia likely due to UTI, Pyelonephritis and pneumonia. blood culture MSSA in 2/2 bottles continue Ceftaroline. Echo ordered. Pneumonia CT chest with bibasilar opacities and bilateral perihilar infiltrates also has pulmonary nodules innumerable 3 mm to 1cm in size continue ceftaroline ? septic emboli echo ordered. Pyelonephritis/ cystitis with left hydronephrosis urine culture pending. continue ceftaroline Acute renal failure/Oliguria Most likely secondary to dehydration due to DKA and possible obstructive uropathy Continue IV fluid Renal ultrasound and ct abdomen shows left hydronephrosis and left hydroureter. monitor intake and output creatinine from 09.16 so patient may have underlying CKD also. will continue to monitor. Stage II ulcer on the left lateral supramalleolar region does not look infected. Appreciate/agree with wound care consult Hypernatremia resolved continue current IVF. Coronary artery diseases Status post CABG, patient stated that was around 2 years ago. Continue atorvastatin, clopidogrel and will start metoprolol when BP improves Elevated troponin On 12/24/20 troponin was elevated to 0.04 Patient denied any chest pain EKG negative for ischemic changes Troponin trended down likely due to sepsis and deandre, dka. HLD continue statin Hypertension will stop lisinopril for now as has DEANDRE will restart metoprolol as needed. Plan/VTE VTE Prophylaxis Ordered?: Yes VS, I&O, 24H, Fishbone Vital Signs/I&O Vital Signs Date Time Temp Pulse Resp B/P (MAP) Pulse Ox O2 Delivery O2 Flow Rate FiO2 12/25/20 12:00 2.0 12/25/20 12:00 99.1 92 16 139/85 (103) 93 Nasal Cannula I&O- Last 24 Hours up to 6 AM 12/25/20 07:00 Intake Total 5279 ml Output Total 2150 ml Balance 3129 ml Laboratory Data 24H LABS Laboratory Tests 2 12/24/20 15:49: Anion Gap 6L, Glomerular Filtration Rate 32.5L, Calcium Level 7.2L, Magnesium Level 2.6H 12/24/20 16:48: Bedside Glucose (Misc Panel) 318H 12/24/20 17:46: Lactic Acid Level 2.4*H 12/24/20 20:16: Anion Gap 6L, Glomerular Filtration Rate 32.3L, Calcium Level 7.4L, Magnesium Level 2.6H, Phosphorus Level 1.8#L 12/24/20 20:17: Bedside Glucose (Misc Panel) 278H 12/24/20 22:09: Lactic Acid Followup at 4 Hours 2.7*H 12/25/20 00:04: Anion Gap 8, Glomerular Filtration Rate 33.3L, Calcium Level 7.1L, Phosphorus Level 2.0L, Magnesium Level 2.6H 12/25/20 02:16: Lactic Acid Level 1.5 12/25/20 04:48: Anion Gap 6L, Glomerular Filtration Rate 34.7L, Calcium Level 7.1L, Phosphorus Level 2.0L, Magnesium Level 2.5H 12/25/20 06:11: Anion Gap 7L, Glomerular Filtration Rate 34.5L, Calcium Level 7.2L, Neutrophils (%) (Auto) , Nucleated Red Blood Cells % (auto) 0.0, Neutrophils 86H, Band Neutrophils 8, Lymphocytes (Manual) 4L, Monocytes (Manual) 2, Platelet Estimate NORMAL 12/25/20 08:00: Anion Gap 6L, Glomerular Filtration Rate 35.1L, Calcium Level 7.2L, Phosphorus Level 2.3L, Magnesium Level 2.7H 12/25/20 11:19: Bedside Glucose (Misc Panel) 296H 12/25/20 11:48: Anion Gap 4L, Glomerular Filtration Rate 34.9L, Calcium Level 7.7L CBC/BMP Laboratory Tests 12/24/20 15:49 12/24/20 20:16 12/25/20 00:04 12/25/20 04:48 12/25/20 06:11 12/25/20 08:00 12/25/20 11:48 Microbiology Microbiology 12/24/20 Blood Culture - Preliminary, Resulted No growth after 24 hours . All specim... 12/24/20 Blood Culture - Preliminary, Resulted No growth after 24 hours . All specim... 12/23/20 Blood Culture - Preliminary, Resulted No growth after 24 hours . All specim... 12/23/20 Respiratory Virus Panel (PCR) (CHIDI) - Final, Complete 12/23/20 Urine Culture - Preliminary, Resulted Staphylococcus Aureus 12/23/20 Blood Culture - Final, Complete Staphylococcus Aureus AIDAN MEYERS MD Dec 25, 2020 13:44
--- NOTE | 2020-12-25 19:18 | SMCUROLCON ---
Urology Consultation General Date of Consultation 12/25/20 Reason For Consultation This patient is seen for Dka (Diabetic Ketocidoses), septicemia and left sided hydronephrosis. History of Present Illness The patient is a 50-year-old male who is brought to the hospital by EMS when he was found unresponsive on the street. He was subsequently determined to be in ketoacidosis with elevated glucose and septicemia with positive urine and blood cultures. A CT scan was performed and it showed that he had some thickening of the left side of the bladder as well as moderate to severe left ureterohydronephrosis to the level of the bladder. Because his septicemia and his positive blood and urine cultures, it is imperative to drain the left kidney. Since interventional radiology is not available on the weekend, the patient will need be brought to the operating room for stent insertion. Past Medical History Medical History Diabetes, coronary artery disease, hyperlipidemia Surgical Hstory Unknown Medications Current Medications Current Medications Medications (Trade) Dose Ordered Sig/Dian Route PRN Reason Start Time Stop Time Status Last Admin Dose Admin Acetaminophen (Tylenol Tab) 650 mg Q4HP PRN PO PAIN / FEVER 12/24/20 14:45 12/25/20 16:18 Acetaminophen (Tylenol Tab) 650 mg Q6HP PRN PO PAIN / FEVER 12/23/20 20:00 12/24/20 14:45 DC 12/24/20 10:02 Amlodipine Besylate (Norvasc) 10 mg DAILY PO 12/24/20 09:00 12/25/20 07:51 Atorvastatin Calcium (Lipitor) 40 mg DAILY PO 12/24/20 09:00 12/25/20 07:49 Ceftaroline Fosamil 200 mg/ Dextrose 50 ml @ 50 mls/hr BID IV 12/23/20 21:00 12/23/20 14:24 DC Ceftaroline Fosamil 400 mg/ Dextrose 50 ml @ 50 mls/hr Q12H IV 12/23/20 17:00 12/25/20 16:19 Clopidogrel Bisulfate (PLAVix) 75 mg DAILY PO 12/24/20 09:00 12/25/20 07:51 Collagenase (SantyL) to left leg DAILY TOP 12/24/20 09:00 12/25/20 07:52 Dextrose (Dextrose 50%) 25 ml ASDIRECTED PRN IV SEE LABEL COMMENTS 12/24/20 08:20 Glucagon (Glucagon) 1 mg ASDIRECTED PRN SC SEE LABEL COMMENTS 12/24/20 08:20 Glucose (Glucose) 16 GM ASDIRECTED PRN PO SEE LABEL COMMENTS 12/24/20 08:20 Insulin Detemir (Levemir Insulin) 50 units BID SC 12/24/20 09:00 12/25/20 07:49 Insulin Human Lispro (HumaLOG INSULIN) 15 units STAT STAT SC 12/24/20 17:22 12/24/20 17:24 DC 12/24/20 17:58 Insulin Human Lispro (HumaLOG INSULIN) SEE PROTOCOL TABLE AC SC 12/24/20 12:00 12/25/20 17:09 Insulin Human Lispro (HumaLOG INSULIN) SEE PROTOCOL TABLE QHS SC 12/24/20 21:00 12/24/20 20:27 Insulin Human Regular 100 unit/ IV Miscellaneous Supplies 100 ml @ 10 mls/hr Q10H IV 12/23/20 13:00 12/23/20 13:44 DC 12/23/20 13:31 Insulin Human Regular 100 unit/ IV Miscellaneous Supplies 100 ml @ 10 mls/hr Q10H IV 12/23/20 14:00 12/24/20 10:00 DC 12/23/20 22:38 Non-Formulary Medication (Insulin Iv Rate Change Documentation ml/ Hr) ASDIRECTED XX 12/23/20 13:00 12/23/20 13:46 DC Non-Formulary Medication (Insulin Iv Rate Change Documentation ml/ Hr) ASDIRECTED XX 12/23/20 13:40 12/24/20 10:00 DC 12/24/20 09:05 Pantoprazole Sodium (Protonix) 40 mg DAILY IV 12/23/20 09:00 12/25/20 07:49 Potassium Chloride/Dextrose/ Sod Cl 1,000 ml @ 200 mls/hr Q5H IV 12/24/20 03:45 12/24/20 10:44 DC 12/24/20 08:39 Potassium Chloride/Sodium Chloride 1,000 ml @ 250 mls/hr Q4H IV 12/23/20 16:20 12/24/20 03:24 DC 12/23/20 22:05 Sodium Chloride 1,000 ml @ 150 mls/hr Q6H40M IV 12/23/20 13:40 12/23/20 16:18 DC Sodium Chloride 40.8 meq/Sterile Water 1,060.2 ml @ 75 mls/hr Q14H9M IV 12/24/20 12:00 12/25/20 16:00 Allergies Allergies: Coded Allergies: No Known Drug Allergies (Verified Allergy, Unknown, 07/10/20) Review of Systems General: Reports: Normal Appetite; Denies: Fatigue, Malaise Constitutional: Reports: Fever; Denies: Chills, Sweats, Weakness, Malaise Eyes: Denies: Pain, Vision change ENT: Denies: Head Aches, Sore Throat, Epistaxis Skin: Denies: Rash, Lesions, Breakdown, Nail Changes Pulmonary: Denies: Dyspnea, Cough Genitourinary: Denies: Dysuria, Frequency, Incontinence, Hematuria Physical Examination General Exam: Alert, No Acute Distress EYE EXAM: PERRLA, Conjunctiva & lids normal, EOMI; No: Sclera icteric ENT EXAM: Atraumatic, Mucous membr. moist/pink, Pharynx Normal Heart Exam: Rate Normal, Regular Rhythm, Normal S1, Normal S2; No: Murmurs, Rubs Abdomen Exam: Normal Bowel Sounds, Soft; No: Tenderness, Hepatospenomegaly Male Exam Penis, scrotum, epididymides peroneal are normal. The bladder is not distended Vital Signs/I&O Vital Signs Date Time Temp Pulse Resp B/P (MAP) Pulse Ox O2 Delivery O2 Flow Rate FiO2 12/25/20 18:00 100.9 111 26 108/66 (80) 93 Nasal Cannula 4.0 I&O- Last 24 Hours up to 6 AM 12/25/20 06:00 Intake Total 5279 ml Output Total 2150 ml Balance 3129 ml Laboratory Data 24H Labs Laboratory Tests 2 12/24/20 20:16: Anion Gap 6L, Glomerular Filtration Rate 32.3L, Calcium Level 7.4L, Phosphorus Level 1.8#L, Magnesium Level 2.6H 12/24/20 20:17: Bedside Glucose (Misc Panel) 278H 12/24/20 22:09: Lactic Acid Followup at 4 Hours 2.7*H 12/25/20 00:04: Anion Gap 8, Glomerular Filtration Rate 33.3L, Calcium Level 7.1L, Phosphorus Level 2.0L, Magnesium Level 2.6H 12/25/20 02:16: Lactic Acid Level 1.5 12/25/20 04:48: Anion Gap 6L, Glomerular Filtration Rate 34.7L, Calcium Level 7.1L, Phosphorus Level 2.0L, Magnesium Level 2.5H 12/25/20 06:11: Anion Gap 7L, Glomerular Filtration Rate 34.5L, Calcium Level 7.2L, Neutrophils (%) (Auto) , Nucleated Red Blood Cells % (auto) 0.0, Neutrophils 86H, Band Ne utrophils 8, Lymphocytes (Manual) 4L, Monocytes (Manual) 2, Platelet Estimate NORMAL 12/25/20 08:00: Anion Gap 6L, Glomerular Filtration Rate 35.1L, Calcium Level 7.2L, Phosphorus Level 2.3L, Magnesium Level 2.7H 12/25/20 11:19: Bedside Glucose (Misc Panel) 296H 12/25/20 11:48: Anion Gap 4L, Glomerular Filtration Rate 34.9L, Calcium Level 7.7L 12/25/20 17:06: Bedside Glucose (Misc Panel) 306H CBC/BMP Laboratory Tests 12/24/20 20:16 12/25/20 00:04 12/25/20 04:48 12/25/20 06:11 12/25/20 08:00 12/25/20 11:48 Microbiology Microbiology 12/24/20 Blood Culture - Preliminary, Resulted No growth after 24 hours . All specim... 12/24/20 Blood Culture - Preliminary, Resulted No growth after 24 hours . All specim... 12/23/20 Blood Culture - Preliminary, Resulted No Growth after 48 hours. All Specime... 12/23/20 Respiratory Virus Panel (PCR) (CHIDI) - Final, Complete 12/23/20 Urine Culture - Preliminary, Resulted Staphylococcus Aureus 12/23/20 Blood Culture - Final, Complete Staphylococcus Aureus Assessment Septicemia with positive blood and urine cultures and severe left hydronephrosis. Plan Because of the patient's septic condition and hydronephrosis on the left side, the patient will need to be brought to the operating room for cystoscopy, left retrograde pyelogram and stent surgeon. Interventional radiology is not available on the weekend for percutaneous nephrostomy. Time Spent on Consult: Time Spent / Consult (Minutes): 75 SHAKIR SANTANA MD Dec 25, 2020 19:18
[2020-12-25] MEDS ORDERED: CONRAY-60 60% 50ML VIAL (Q9961) As Ordered ONE (19:30)
[2020-12-25] MEDS ORDERED: LIDOCAINE 2% 5ML JELLY UROJET As Ordered ONE (19:50)
[2020-12-25] MEDS ORDERED: propofoL 200 MG/20 ML VIAL As Ordered ONE (20:15)
[2020-12-25] MEDS ORDERED: ONDANSETRON 4MG/2ML VIAL As Ordered ONE (20:15)
[2020-12-25] MEDS ORDERED: LIDOCAINE 2% 100MG/5ML SDV (FOR ANES.) As Ordered ONE (20:15)
[2020-12-25] MEDS ORDERED: fentaNYL 100 MCG/2 ML INJECTION (J3010) As Ordered ONE (20:15)
[2020-12-25] MEDS ORDERED: MIDAZOLAM INJ 2MG/2ML VIAL (J2250 PER 1MG) As Ordered ONE (20:15)
[2020-12-25] MEDS ORDERED: KETAMINE HCL 200 MG/20 ML VIAL As Ordered ONE (20:15)
--- NOTE | 2020-12-25 20:26 | ROOPDOC ---
[facility] Report Of Operation Report of Operation DATE OF PROCEDURE: 12/25/20 PREPROCEDURE DIAGNOSES: Left hydronephrosis with sepsis POSTPROCEDURE DIAGNOSES: Same loss trigonitis PROCEDURE: Cystoscopy, left retrograde pyelogram, stent insertion and Richmond catheterization and x-ray interpretation SURGEON: Eder Saleh MD AQUAT[employer] LIFEGUARD: None ANESTHESIA: Gen. ESTIMATED BLOOD LOSS: Approximately 0 mL. COMPLICATIONS: None REMARKS: Severe trigonitis causing left ureteral obstruction. Prostate is benign on LEON PROCEDURE NOTE: The patient was brought to the operating room for a left ureteral stent insertion because of severe left hydronephrosis with sepsis DESCRIPTION OF PROCEDURE: The patient was placed on table in supine position, given general anesthesia, placed in lithotomy position, prepped with Betadine paint, draped in an aseptic manner and timeout was performed. A 22 Kosovan cystoscope was then inserted into the meatus and advanced under direct vision with 30 lens the bladder. In the bladder, the patient is found to have significant edema of the trigonal area causing obstruction of the left uret eral orifice. The rest of the bladder appeared normal although inflamed with cystitis. The left ureteral orifice was able to be identified, catheterized with a 5 Kosovan open-ended catheter and retrograde injection of Conray showed that the patient had mild to moderate hydroureteronephrosis. A 5 Kosovan open-ended catheter was then attempted to be passed over the wire without success because of resistance. A 6 Kosovan stent was then successfully passed over the wire and curled well in the renal pelvis and in the bladder when the wire was removed. The bladder was then drained, cystoscope was removed. Rectal examination showed a 20 g prostate without indurations, nodules, masses or bogginess 18 Kosovan [place] catheter was then placed. The patient was then awakened and sent to recovery room in stable condition having tolerated the procedure well. Fluoroscopy was used and interpreted throughout the case to evaluate the patient's hydronephrosis and place the ureteral stent. EDER SALEH MD Dec 25, 2020 20:26
[2020-12-25] MEDS ORDERED: ONDANSETRON 4MG/2ML VIAL IV PRN (20:30)
[2020-12-25] MEDS ORDERED: LR 1,000 ML IV SCH (20:30)
--- NOTE | 2020-12-25 20:50 | ECGEPIP ---
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
[2020-12-25] MEDS ORDERED: ACETAMINOPHEN *IV* 1,000 MG in IV 1 EA IV ONE (21:20)
[2020-12-25] MEDS ORDERED: LEVEMIR (INSULIN DETEMIR) 1 UNITS/0.01ML SC ONE (21:50)
--- NOTE | 2020-12-25 21:50 | IPNPDOC ---
Text Note Date of Service The patient was seen on 12/25/20. NOTE I was informed by the patient's RN that he declined his dinner and his most r ecent glucose was 194. We check FSBS Q4H, and decrease the levemir from 50 to 25 units tonight. VS,Fishbone, I+O VS, Fishbone, I+O Laboratory Tests 12/25/20 00:04 12/25/20 04:48 12/25/20 06:11 12/25/20 08:00 12/25/20 11:48 Vital Signs Date Time Temp Pulse Resp B/P (MAP) Pulse Ox O2 Delivery O2 Flow Rate FiO2 12/25/20 20:50 98.1 100 30 152/80 (104) 91 Nasal Cannula 4.0 I&O- Last 24 Hours up to 6 AM 12/25/20 06:00 Intake Total 5279 ml Output Total 2150 ml Balance 3129 ml ROSEANN STEPHENSON MD Dec 25, 2020 21:50
[2020-12-25] MEDS: LR 1,000 ML IV SCH (22:06)
[2020-12-26] VITALS (22 sets, daily range): BP systolic 106–160; BP diastolic 61–91; PULSE 103
[2020-12-26] MEDS: HumaLOG INSULIN (NovoLOG) PER UNIT SC SCH ×4 (02:16→17:13)
[2020-12-26 02:49] LABS: HEMATOCRIT 34.1 % (42.0-52.0); HEMOGLOBIN 10.7 g/dl (13.5-17.5); MEAN CORPUSCULAR HEMOGLOBIN 28.6 pg (27.0-33.0); MEAN CORPUSCULAR HGB CONC 31.4 g/dl (32.0-36.5); MEAN CORPUSCULAR VOLUME 91.2 fl (80.0-96.0); PLATELET COUNT, AUTOMATED 193 10^3/uL (150-450); RED BLOOD COUNT 3.74 10^6/uL (4.30-6.10); WHITE BLOOD COUNT 15.6 10^3/uL (4.0-10.0)
[2020-12-26 03:29] LABS: BLOOD UREA NITROGEN 61 MG/DL (7-18); CALCIUM LEVEL 7.1 MG/DL (8.5-10.1); CARBON DIOXIDE LEVEL 25 MEQ/L (21-32); CHLORIDE LEVEL 115 MEQ/L (98-107); CREATININE FOR GFR 2.08 MG/DL (0.70-1.30); GLOMERULAR FILTRATION RATE 36.5 (>60); GLUCOSE, FASTING 138 MG/DL (70-100); POTASSIUM SERUM 4.3 MEQ/L (3.5-5.1); SODIUM LEVEL 143 MEQ/L (136-145); TROPONIN I < 0.02 NG/ML (< 0.10)
[2020-12-26 03:32] LABS: LYMPHOCYTES 8 % (16-44); MONOCYTES 4 % (0-5); NEUTROPHILS 83 % (28-66); PLATELET ESTIMATE NORMAL (NORMAL)
[2020-12-26] MEDS: CEFTAROLINE FOSAMIL 400 MG in D5W MINI-BAG PLUS 50 ML IV SCH (04:20)
[2020-12-26] MEDS ORDERED: ONDANSETRON 4MG/2ML VIAL IV PRN (07:45)
--- NOTE | 2020-12-26 07:57 | REP ---
INDICATION: URETERAL STENT PLACEMENT. COMPARISON: Comparison CT study cyst December 23, 2020.. TECHNIQUE: Single spot view. 47 seconds of fluoroscopy time is reported. FINDINGS: A single last image hold fluoroscopically obtained spot radiograph of the abdomen document left ureteral cannulation and contrast injection. IMPRESSION: Procedural imaging. <Electronically signed by Ricardo Ann > 12/26/20 [id number]
[2020-12-26] MEDS ORDERED: METOPROLOL TART 25 MG TABLET PO SCH (09:00)
[2020-12-26] MEDS ORDERED: amLODIPine 5 MG TAB PO SCH (09:00)
[2020-12-26] MEDS: CLOPIDOGREL 75 MG TAB PO SCH (09:18)
[2020-12-26] MEDS: PANTOPRAZOLE 40MG VIAL (C9113 PER 1) IV SCH (09:18)
[2020-12-26] MEDS: NAFCILLIN SOD 2 GM in D5W MINI-BAG PLUS 50 ML IV SCH ×4 (09:19→20:31)
[2020-12-26] MEDS: ACETAMINOPHEN 500 MG TAB PO PRN ×3 (09:27→20:32)
--- NOTE | 2020-12-26 10:44 | IPNPDOC ---
Subjective Date Seen The patient was seen on 12/26/20. Subjective Chief Complaint/HPI Continues to have low fever overnight with a T max of 101.1. Had gone to OR with urology for left obstructive uropathy and had a stent placed. Cystoshowed severe trigonitis causing occlusion of the left ureteral orifice. Poor appetite. Objective Physical Examination General Exam: Positive: Alert, Cooperative, No Acute Distress Eye Exam: Positive: Conjunctiva & lids normal, EOMI ENT Exam: Positive: Atraumatic, Mucous membr. moist/pink, Pharynx Normal Neck Exam: Positive: Supple; Negative: JVD Chest Exam: Positive: Clear to auscultation, Normal air movement Heart Exam: Positive: Rate Normal, Regular Rhythm, Normal S1, Normal S2; Negative: Murmurs, Rubs Telemetry: Positive: No significant arrhythmia Abdomen Exam: Positive: Normal bowel sounds, Soft; Negative: Tenderness, Hepatospenomegaly Extremity Exam: Positive: Edema (trace); Negative: Clubbing, Cyanosis Skin Exam: Positive: Breakdown (left distal leg wound stage II ulcer 2cm X4 cm) Neuro Exam: Positive: Normal Speech, Strength at 5/5 X4 ext, Normal Tone Psych Exam: Positive: Memory Intact, Oriented x 3 Assessment /Plan Assessment Patient is 50 years old male with past history of coronary artery diseases, CABG, diabetes mellitus on insulin Lantus 50 units twice a day, hyperlipidemia presented to the hospital with lethargy and altered mental status. Patient was somnolent on admission and couldn't provide detailed history. According to the ER physician, patient was found on the street by EMS. Patient stated that he ran out of his diabetes medication for one week. He moved to [place] from [place] recently and doesn't have PCP. In ER patient was found to have white blood count of 31.4, hemoglobin 15.9, glucose level 1037, creatinine 2.6, potassium 5.6, blood osmolarity 375, lipase level 449. Head CT negative. Chest x-ray negative for acute infiltrate. Patient was admitted for DKA, sepsis. DKA Secondary to running out of insulin and sepsis. now resolved Carb consistent diet and Fs AC and HS. Levemir adn lispro Sepsis with MSSA bacteremia likely due to UTI, Pyelonephritis and pneumonia. blood culture MSSA in 2/2 bottles will change to nafcillin. Echo ordered. Pneumonia CT chest with bibasilar opacities and bilateral perihilar infiltrates also has pulmonary nodules innumerable 3 mm to 1cm in size ? septic emboli echo ordered. Pyelonephritis/ cystitis with left hydronephrosis Had cysto with left ureteral stent placement on 12/25/20 Cysto showed severe inflammation of the trigone causing occlusion of the left ur eteral orifice. urine culture MSSA Nafcillin Acute renal failure/Oliguria Most likely secondary to dehydration due to DKA and obstructive uropathy Continue IV fluid Renal ultrasound and ct abdomen shows left hydronephrosis and left hydroureter. creatinine from aug 10.7 so patient may have underlying CKD also. will continue to monitor. Stage II ulcer on the left lateral supramalleolar region does not look infected. Appreciate/agree with wound care consult Hypernatremia resolved continue current IVF. Coronary artery diseases Status post CABG in 2014. Continue atorvastatin, clopidogrel and will start metoprolol Elevated troponin On 12/24/20 troponin was elevated to 0.04 Patient denied any chest pain EKG negative for ischemic changes Troponin trended down likely due to sepsis and deandre, dka. HLD continue statin Hypertension will stop lisinopril for now as has DEANDRE will restart metoprolol as needed. stop amlodipine. Plan/VTE VTE Prophylaxis Ordered?: Yes VS, I&O, 24H, Fishbone Vital Signs/I&O Vital Signs Date Time Temp Pulse Resp B/P (MAP) Pulse Ox O2 Delivery O2 Flow Rate FiO2 12/26/20 09:18 107 138/81 12/26/20 08:00 5.0 12/26/20 06:00 24 91 Nasal Cannula 12/26/20 04:00 100.8 I&O- Last 24 Hours up to 6 AM 12/26/20 06:00 Intake Total 3178 ml Output Total 2880 ml Balance 298 ml Laboratory Data 24H LABS Laboratory Tests 2 12/25/20 11:19: Bedside Glucose (Misc Panel) 296H 12/25/20 11:48: Anion Gap 4L, Glomerular Filtration Rate 34.9L, Calcium Level 7.7L 12/25/20 17:06: Bedside Glucose (Misc Panel) 306H 12/25/20 21:40: Bedside Glucose (Misc Panel) 194H 12/26/20 02:08: Bedside Glucose (Misc Panel) 136H 12/26/20 02:39: Neutrophils (%) (Auto) , Nucleated Red Blood Cells % (auto) 0.0, Neutrophils 83H, Band Neutrophils 5, Lymphocytes (Manual) 8L, Monocytes (Manual) 4, Red Blood Cell Morphology NORMAL, Platelet Estimate NORMAL, Anion Gap 3L, Glomerular Filtration Rate 36.5L, Calcium Level 7.1L, Troponin I < 0.02# 12/26/20 06:10: Bedside Glucose (Misc Panel) 112H CBC/BMP Laboratory Tests 12/25/20 11:48 12/26/20 02:39 Microbiology Microbiology 12/24/20 Blood Culture - Preliminary, Resulted No Growth after 48 hours. All Specime... 12/24/20 Blood Culture - Preliminary, Resulted No Growth after 48 hours. All Specime... 12/23/20 Blood Culture - Preliminary, Resulted No Growth after 48 hours. All Specime... 12/23/20 Respiratory Virus Panel (PCR) (CHIDI) - Final, Complete 12/23/20 Urine Culture - Final, Complete Staphylococcus Aureus 12/23/20 Blood Culture - Final, Complete Staphylococcus Aureus AIDAN MEYERS MD Dec 26, 2020 10:41
--- NOTE | 2020-12-26 13:04 | IPNPDOC ---
Subjective Review oF Systems Chief Complaint The patient is a 50-year-old male admitted with a reason for visit of Dka (Diabetic Ketocidoses). Events since Last Encounter No new urinary recurrences since the stent was inserted last night. General: Reports: Normal Appetite; Denies: Fatigue, Malaise Constitutional: Denies: Fever, Chills, Sweats, Weakness, Malaise Eyes: Denies: Pain, Vision change ENT: Denies: Head Aches, Sore Throat, Epistaxis Genitourinary: Denies: Dysuria, Frequency, Incontinence, Hematuria Objective Physical Examination General Exam: Alert, No Acute Distress; No: Cooperative, Mild Distress, Moderate Distress, Severe Distress, Other Heart Exam: Positive: Rate Normal, Regular Rhythm, Normal S1, Normal S2; Negative: Murmurs, Rubs ABDOMEN EXAM: Normal bowel sounds, Soft; No: Tenderness, Hepatospenomegaly Male Exam: Normal Genital Exam Vital Signs/I&O Vital Signs Date Time Temp Pulse Resp B/P (MAP) Pulse Ox O2 Delivery O2 Flow Rate FiO2 12/26/20 12:00 8.0 12/26/20 11:08 101 116/61 12/26/20 06:00 24 91 Nasal Cannula 12/26/20 04:00 100.8 I&O- Last 24 Hours up to 6 AM 12/26/20 06:00 Intake Total 3178 ml Output Total 2880 ml Balance 298 ml Laboratory Data Labs 24H Laboratory Tests 2 12/25/20 17:06: Bedside Glucose (Misc Panel) 306H 12/25/20 21:40: Bedside Glucose (Misc Panel) 194H 12/26/20 02:08: Bedside Glucose (Misc Panel) 136H 12/26/20 02:39: Neutrophils (%) (Auto) , Nucleated Red Blood Cells % (auto) 0.0, Neutrophils 83H, Band Neutrophils 5, Lymphocytes (Manual) 8L, Monocytes (Manual) 4, Red Blood Cell Morphology NORMAL, Platelet Estimate NORMAL, Anion Gap 3L, Glomerular Filtration Rate 36.5L, Calcium Level 7.1L, Troponin I < 0.02# 12/26/20 06:10: Bedside Glucose (Misc Panel) 112H 12/26/20 11:33: Bedside Glucose (Misc Panel) 148H CBC/BMP Laboratory Tests 12/26/20 02:39 FSBS Laboratory Tests Test 4/17/21 17:06 12/25/20 21:40 12/26/20 02:08 12/26/20 06:10 Range/Units Bedside Glucose (Misc Panel) 306 194 136 112 70-105 MG/DL Test 12/26/20 11:33 Range/Units Bedside Glucose (Misc Panel) 148 70-105 MG/DL Microbiology Microbiology 12/24/20 Blood Culture - Preliminary, Resulted No Growth after 48 hours. All Specime... 12/24/20 Blood Culture - Preliminary, Resulted No Growth after 48 hours. All Specime... 12/23/20 Blood Culture - Preliminary, Resulted No Growth after 48 hours. All Specime... 12/23/20 Respiratory Virus Panel (PCR) (CHIDI) - Final, Complete 12/23/20 Urine Culture - Final, Complete Staphylococcus Aureus 12/23/20 Blood Culture - Final, Complete Staphylococcus Aureus Assessment/Plan Date Seen The patient was seen on 12/26/20. Problems (1) DKA (diabetic ketoacidoses) Status: Acute (2) Sepsis Status: Acute (3) Cellulitis Status: Acute (4) Acute renal failure Status: Acute (5) Leg ulcer, left Status: Acute Plan/VTE VTE Prophylaxis Ordered?: Yes Plan Patient's temperature continues to drop, GFR is slowly improving as well as white cell count is slowly dropping. Plan is to keep the catheter in place until the patient has recovered and is in much better health. He can be scheduled for an office catheter removal. SHAKIR SANTANA MD Dec 26, 2020 13:04
[2020-12-26] MEDS: SANTYL OINT 30GM TOP SCH (13:12)
[2020-12-26] MEDS: LR 1,000 ML IV SCH (20:31)
[2020-12-26] MEDS ORDERED: LEVEMIR (INSULIN DETEMIR) 1 UNITS/0.01ML SC SCH (21:00)
[2020-12-27] VITALS (20 sets, daily range): BP systolic 108–158; BP diastolic 62–90
[2020-12-27] MEDS: NAFCILLIN SOD 2 GM in D5W MINI-BAG PLUS 50 ML IV SCH ×4 (00:14→12:37)
[2020-12-27 05:10] LABS: HEMOGLOBIN 11.5 g/dl (13.5-17.5); MEAN CORPUSCULAR HEMOGLOBIN 27.7 pg (27.0-33.0); MEAN CORPUSCULAR HGB CONC 31.1 g/dl (32.0-36.5); MEAN CORPUSCULAR VOLUME 89.2 fl (80.0-96.0); PLATELET COUNT, AUTOMATED 222 10^3/uL (150-450); RED BLOOD COUNT 4.15 10^6/uL (4.30-6.10); WHITE BLOOD COUNT 14.4 10^3/uL (4.0-10.0)
[2020-12-27 05:38] LABS: C REACTIVE PROTEIN QUANTITATIV 30.8 MG/DL (0.00-0.30); CALCIUM LEVEL 8.3 MG/DL (8.5-10.1); CREATININE FOR GFR 2.06 MG/DL (0.70-1.30); GLOMERULAR FILTRATION RATE 36.9 (>60); POTASSIUM SERUM 4.5 MEQ/L (3.5-5.1)
[2020-12-27 05:50] LABS: EOSINOPHILS 2 % (0-3); HYPOCHROMASIA 1+; LYMPHOCYTES 11 % (16-44); MONOCYTES 6 % (0-5); NEUTROPHILS 74 % (28-66); PLATELET CLUMPS SMALL AMT; PLATELET ESTIMATE NORMAL (NORMAL)
[2020-12-27] MEDS: ACETAMINOPHEN 500 MG TAB PO PRN ×2 (06:11→12:37)
[2020-12-27] MEDS: LR 1,000 ML IV SCH (06:12)
--- NOTE | 2020-12-27 09:05 | ECHO ---
DATE OF PROCEDURE: 12/24/2020 Age: 50 Gender: Male REFERRING PHYSICIAN: Moreno David M.D. PATIENT LOCATION: Room 3205 REASON FOR THE TESTING: Sepsis. MEASUREMENTS: 2D measurements: IVS 1.9 cm LV 4.1 cm LVPW 1.7 cm LA 4.4 cm Aorta 3.6 cm IVC 2.1 cm Doppler measurements: Peak velocity across the aortic valve 1.3 m/s Peak velocity across the LVOT 1.2 m/s Mitral E 0.58, mitral A 0.96 with a ratio of 0.6 2D COMMENTS: 1. Normal left ventricular size with moderately increased left ventricular wall thickness. Low normal global left ventricular systolic function with an estimated left ventricular ejection fraction (LVEF) of 50 to 55%. 2. Mildly enlarged left atrium. Normal right atrium and right ventricle. 3. The atrial septum appears to be normal without evidence of defect or shunt. 4. Normal aortic root. 5. No pericardial effusion seen. 6. Mildly calcified aortic valve with normal leaflet excursion. Mildly calcified mitral annulus with normal anterior mitral valve leaflet motion. Normal tricuspid valve and pulmonic valve. The proximal pulmonary artery branches were not well visualized. 7. The inferior vena cava is mildly dilated. Central venous pressure might be elevated. DOPPLER: It detects trace aortic regurgitation. Abnormal relaxation pattern was noted across the mitral valve leaflets, as well as the mitral valve annulus consistent with features of grade 1 left ventricular diastolic dysfunction. IMPRESSION: 1. Low normal global left ventricular systolic function with moderate concentric left ventricular hypertrophy. There are some features of grade 1 left ventricular diastolic dysfunction manifested by abnormal normal relaxation. 2. Aortic valve sclerosis with trace aortic regurgitation, but no aortic stenosis. 3. There are some features of elevated central venous pressure, the inferior vena cava was mildly enlarged. [facility]
[2020-12-27] MEDS: PANTOPRAZOLE 40MG VIAL (C9113 PER 1) IV SCH (09:18)
[2020-12-27] MEDS: HumaLOG INSULIN (NovoLOG) PER UNIT SC SCH ×4 (09:18→20:59)
[2020-12-27] MEDS: CLOPIDOGREL 75 MG TAB PO SCH (09:18)
[2020-12-27] MEDS: LEVEMIR (INSULIN DETEMIR) 1 UNITS/0.01ML SC SCH ×2 (09:18→20:58)
[2020-12-27] MEDS: SANTYL OINT 30GM TOP SCH (09:19)
--- NOTE | 2020-12-27 10:07 | IPNPDOC ---
Subjective Date Seen The patient was seen on 12/27/20. Subjective Chief Complaint/HPI Working with PT. Sitting up at the side of the bed. Very dizzy and light headed. denies any SOB or cough. continue with the johns catheter. continues to have fever and has been on the cooling blanket all night. Objective Physical Examination General Exam: Positive: Alert, Cooperative, No Acute Distress Eye Exam: Positive: Conjunctiva & lids normal, EOMI ENT Exam: Positive: Atraumatic, Mucous membr. moist/pink, Pharynx Normal Neck Exam: Positive: Supple; Negative: JVD Chest Exam: Positive: Clear to auscultation, Normal air movement Heart Exam: Positive: Rate Normal, Regular Rhythm, Normal S1, Normal S2; Negative: Murmurs, Rubs Telemetry: Positive: No significant arrhythmia Abdomen Exam: Positive: Normal bowel sounds, Soft; Negative: Tenderness, Hepatospenomegaly Extremity Exam: Positive: Edema (trace inthe feet and both the hands. ); Negative: Clubbing, Cyanosis Skin Exam: Positive: Breakdown (left distal leg wound stage II ulcer 2cm X4 cm) Neuro Exam: Positive: Normal Speech, Strength at 5/5 X4 ext, Normal Tone Psych Exam: Positive: Memory Intact, Oriented x 3 Assessment /Plan Assessment Patient is 50 years old male with past history of coronary artery diseases, CABG, diabetes mellitus on insulin Lantus 50 units twice a day, hyperlipidemia presented to the hospital with lethargy and altered mental status. Patient was somnolent on admission and couldn't provide detailed history. According to the ER physician, patient was found on the street by EMS. Patient stated that he ran out of his diabetes medication for one week. He moved to [place] from [place] recently and doesn't have PCP. In ER patient was found to have white blood count of 31.4, hemoglobin 15.9, glucose level 1037, creatinine 2.6, potassium 5.6, blood osmolarity 375, lipase level 449. Head CT negative. Chest x-ray negative for acute infiltrate. Patient was admitted for DKA, sepsis. DKA Secondary to running out of insulin and sepsis. now resolved Carb consistent diet and Fs AC and HS. Levemir and lispro Sepsis with MSSA bacteremia likely due to UTI with left ureteral obstruction and Pyelonephritis blood culture and urine culture MSSA changed to nafcillin. Echo done Pneumonia CT chest with bibasilar opacities and bilateral perihilar infiltrates also has pulmonary nodules innumerable 3 mm to 1cm in size ? septic emboli CXR from 12/25: Bilateral perihilar and bibasilar reticulonodular and ground-glass opacities. echo done Pyelonephritis/ cystitis with left hydronephrosis Had cysto with left ureteral stent placement on 12/25/20 Cysto showed severe inflammation of the trigone causing occlusion of the left ureteral orifice. urine culture MSSA Nafcillin Acute renal failure/Oliguria Most likely secondary to dehydration due to DKA and obstructive uropathy Renal ultrasound and ct abdomen shows left hydronephrosis and left hydroureter. s/p cysto and left ureteral stent placement. creatinine from aug 10.7 so patient may have underlying CKD also. will continue to monitor. Stage II ulcer on the left lateral supramalleolar region does not look infected. Appreciate/agree with wound care consult Hypernatremia resolved Coronary artery diseases Status post CABG in 2014. Continue atorvastatin, clopidogrel and will start metoprolol Elevated troponin On 12/24/20 troponin was elevated to 0.04 Patient denied any chest pain EKG negative for ischemic changes Troponin trended down likely due to sepsis and deandre, dka. HLD continue statin Hypertension will stop lisinopril for now as has DEANDRE will restart metoprolol as needed. stop amlodipine. Plan/VTE VTE Prophylaxis Ordered?: Yes VS, I&O, 24H, Fishbone Vital Signs/I&O Vital Signs Date Time Temp Pulse Resp B/P (MAP) Pulse Ox O2 Delivery O2 Flow Rate FiO2 12/27/20 08:00 4.0 12/27/20 08:00 98.4 94 142/82 (102) 92 Nasal Cannula 12/27/20 07:01 26 I&O- Last 24 Hours up to 6 AM 12/27/20 06:00 Intake Total 2240 ml Output Total 3750 ml Balance -1510 ml Laboratory Data 24H LABS Laboratory Tests 2 12/26/20 11:33: Bedside Glucose (Misc Panel) 148H 12/26/20 17:05: Bedside Glucose (Misc Panel) 198H 12/26/20 19:45: Bedside Glucose (Misc Panel) 321H 12/27/20 04:50: Neutrophils (%) (Auto) , Nucleated Red Blood Cells % (auto) 0.1H, Neutrophils 74H, Band Neutrophils 7, Lymphocytes (Manual) 11L, Monocytes (Manual) 6H, Eosinophils (Manual) 2, Hypochromasia 1+, Platelet Estimate NORMAL, Clumped Platelets SMALL AMT, Anion Gap 7L, Glomerular Filtration Rate 36.9L, Calcium Level 8.3#L, C-Reactive Protein, Quantitative 30.80H 12/27/20 07:43: Bedside Glucose (Misc Panel) 261H CBC/BMP Laboratory Tests 12/27/20 04:50 Microbiology Microbiology 12/24/20 Blood Culture - Preliminary, Resulted No Growth after 72 hours. All specime... 12/24/20 Blood Culture - Preliminary, Resulted No Growth after 72 hours. All specime... 12/23/20 Blood Culture - Preliminary, Resulted No Growth after 72 hours. All specime... 12/23/20 Respiratory Virus Panel (PCR) (CHIDI) - Final, Complete 12/23/20 Urine Culture - Final, Complete Staphylococcus Aureus 12/23/20 Blood Culture - Final, Complete Staphylococcus Aureus AIDAN MEYERS MD Dec 27, 2020 10:07
[2020-12-27] MEDS: ceFAZolin SOD 2 GM in IV 1 EA IV SCH (18:11)
[2020-12-27 21:06] LABS: HEPATITIS B SURFACE ANTIGEN NEGATIVE (NEGATIVE); HEPATITIS C VIRUS ABY INDEX 0.2 INDEX (<0.8); HIV 1&2 SCREEN CENTAUR NEGATIVE (NEGATIVE)
[2020-12-28] VITALS (16 sets, daily range): BP systolic 131–175; BP diastolic 62–94
[2020-12-28 05:14] LABS: BASO % 0.2 % (0.0-1.0); EOS # 0.2 10^3/uL (0.0-0.5); HEMATOCRIT 32.1 % (42.0-52.0); HEMOGLOBIN 10.3 g/dl (13.5-17.5); LYMPH % 17.6 % (24.0-44.0); MEAN CORPUSCULAR HEMOGLOBIN 28.5 pg (27.0-33.0); MEAN CORPUSCULAR HGB CONC 32.1 g/dl (32.0-36.5); MEAN CORPUSCULAR VOLUME 88.7 fl (80.0-96.0); MONO # 1.6 10^3/uL (0.0-0.8); MONO % 9.4 % (2.0-8.0); NEUTROPHILS # 11.9 10^3/uL (1.5-8.5); NEUTROPHILS % 69.7 % (36.0-66.0); PLATELET COUNT, AUTOMATED 249 10^3/uL (150-450); RED BLOOD COUNT 3.62 10^6/uL (4.30-6.10)
[2020-12-28 05:16] LABS: WHITE BLOOD COUNT 17.1 10^3/uL (4.0-10.0)
[2020-12-28 05:39] LABS: C REACTIVE PROTEIN QUANTITATIV 18.8 MG/DL (0.00-0.30); CALCIUM LEVEL 7.8 MG/DL (8.5-10.1); CREATININE FOR GFR 2.02 MG/DL (0.70-1.30); GLOMERULAR FILTRATION RATE 37.7 (>60); POTASSIUM SERUM 4.3 MEQ/L (3.5-5.1); TOTAL PROTEIN 6.3 GM/DL (6.4-8.2)
[2020-12-28] MEDS: ceFAZolin SOD 2 GM in IV 1 EA IV SCH ×2 (05:58→17:14)
[2020-12-28] MEDS: ACETAMINOPHEN 500 MG TAB PO PRN ×2 (07:54→15:35)
[2020-12-28] MEDS: CLOPIDOGREL 75 MG TAB PO SCH (07:55)
[2020-12-28] MEDS: PANTOPRAZOLE 40MG TAB (PROTONIX) PO SCH (07:55)
[2020-12-28] MEDS: SANTYL OINT 30GM TOP SCH (09:00)
--- NOTE | 2020-12-28 09:36 | REP ---
INDICATION: SOB, INCREASED O2 NEEDS COMPARISON: 12/25/2020 TECHNIQUE: PA and lateral. FINDINGS: Mediastinum and cardiac silhouette are stable with evidence for prior sternotomy and CABG again noted. Vague scattered airspace disease is suspected bilaterally. No discrete focal consolidation. No obvious effusion. No pneumothorax. IMPRESSION: Findings suggest vague scattered bilateral airspace disease. Clinical correlation is required. <Electronically signed by Ramon North > 12/28/20 0935
--- NOTE | 2020-12-28 09:37 | CR ---
CONSULTATION DATE: 12/27/2020 REASON FOR CONSULTATION: Asked to consult by Dr. Funes for evaluation of Staphylococcus aureus bacteremia with cultures positive for methicillin-susceptible Staphylococcus aureus (MSSA) . HISTORY OF PRESENT ILLNESS: Mr. Khanna is a 50-year-old gentleman who was admitted on 12/23 when he was found lethargic and confused on the street. He was brought in my emergency medical service (EMS). His glucose was 1,036, potassium was 5.6. He was febrile with temperature of 101.8 and a white count of 31,000. The patient was not able to give history. He was admitted with the diagnosis of sepsis. CT abdomen and pelvis showed left-sided hydronephrosis and he was seen in consultation by urology. Urinalysis had 29 white cells. Urine culture was positive for methicillin-susceptible Staphylococcus aureus (MSSA) and blood culture was positive for methicillin-susceptible Staphylococcus aureus (MSSA). The patient has continued to be febrile. Surgery was on 12/25. A left kidney stent was placed, cystoscopy, retrograde pyelogram was done on 12/25, which documented left ureteral cannulation and contrast injection. The nurse today states that the patient is still febrile. He is receiving Tylenol 1 gm every 6 hours. He was on a cooling blanket. He now complains of low back pain. He has increasing shortness of breath. He does have increased edema of upper extremities and one of his peripheral IVs is erythematous. The patient also states that he is having some low back pain and difficulty sitting up. He was having a hard time sitting at the edge of the bed with physical therapy. 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 Hyperlipidemia. PAST SURGICAL HISTORY: Coronary artery bypass grafting (CABG) in [place]. SOCIAL HISTORY: He has 8 children of their own. They are all independent. He moved to [place] in June of 2020 to be closer to his Godchildren. He lives with his friend and the Godchildren. 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 He denies IV drug use, tobacco use. FAMILY HISTORY: Not obtained. ALLERGIES: No known drug allergies. MEDICATIONS: Nafcillin 2 gm IV every 4 hours, started today. He had received three days ceftaroline, pantoprazole 40 mg IV daily, insulin sliding scale, Levemir 20 units subcutaneous twice a day, Zofran 4 mg IV q 6 hours as needed, Tylenol 1 gm by mouth q 6 hours as needed. He has received 2 gm today. Plavix 75 mg by mouth daily. REVIEW OF SYSTEMS: He denies any nausea, vomiting or diarrhea. He does have some abdominal pain, which is suprapubic in nature and some low back pain. He has no urinary symptoms. He has a [place] catheter in place. He complains of some shortness of breath and a dry cough. He has oxygen on; he does not usually use oxygen. LABORATORY DATA: White count 14.4, hemoglobin 11.5, hematocrit 37, 74% neutrophils, 7% bands, 11% lymphocytes, 6% monocytes. Sodium 141, potassium 4.5, chloride 113, bicarbonate 21, BUN 54, creatinine 2.06, glucose 314, calcium 8.3, C-reactive protein 30.8, BNP 447. Beta hydroxybutyrate was more than 46 on admission and on 12/24 was 3.08. Alcohol level was negative. Toxicology screen was negative. Hepatitis B, C, HIV ordered by myself today were all negative. Blood cultures two sets ordered on 12/23, one out of two was positive with methicillin-susceptible Staphylococcus aureus (MSSA). Urine culture was methicillin-susceptible Staphylococcus aureus (MSSA). On 12/24, one out of two blood cultures are positive as well with gram-positive cocci. Chest x-ray on 12/25 shows bilateral, perihilar and bibasilar reticulonodular ground glass opacities. CT chest, abdomen and pelvis done on 12/23 shows moderate left-sided hydronephrosis and hydroureter that had developed since the examination prior, periureteral edema, abnormal thickening of the urinary bladder with perivascular fatty infiltration. CT chest shows multiple pulmonary nodules, innumerable. Follow up chest CT was recommended in [address] was done without contrast. Head CT done on admission for confusion and lethargy showed no acute findings. No acute bleed or infarcts. PHYSICAL EXAMINATION: He is a pleasant gentleman in moderate discomfort, especially when trying to sit up. Temperature is 100, pulse 100, respirations 24, blood pressure 131/75, O2 saturation 91% on 2 liters nasal cannula. Heart: Normal S1, S2, tachycardiac. No murmurs appreciated. Lungs: A few crackles at the left base. No wheezes, rales or rhonchi. Abdomen: Distended, soft, mildly tender in the suprapubic area. Back: No costovertebral angle (CVA) tenderness. Mild lumbosacral tenderness at L3/4/5. Oropharynx: Dry mucosa, but no thrush, no lesion. Neck: Supple. No jugular venous distention (JVD), no bruits, no adenopathy. Pupils equal and reactive, anicteric. Extremities: +1 pitting edema of both hands. Left IV on the dorsal aspect of the hand with infiltrated slight erythema, another IV was in the antecubital fossa on the right arm. Extremities: +1 pitting edema with mild erythema of the soles and toes. Decreased pulses bilaterally. Decreased sensation. Skin: Left leg laterally has a 4 x 2 cm ulcer, clean with granulation tissue, minimal serous discharge on the Optifoam dressing. There is no surrounding cellulitis. Diffuse vitiligo of his entire body. Genitourinary (): Normal for age with a catheter in place. Mild erythema of the scrotal area. IMPRESSION: This is a 50-year-old gentleman who was admitted with diabetic ketoacidosis (DKA) with sepsis, who was found to have Staphylococcus aureus bacteremia and left-sided hydronephrosis with pyelonephritis from methicillin-susceptible Staphylococcus aureus (MSSA) and secondary bacteremia and sepsis. The patient has been febrile for now four days in spite appropriate antibiotics. He is clinically improving, although there is still concern of his persistent infection. He is tachypneic, still febrile. I am concerned about metastatic complication of Staphylococcus aureus including the possibility of diskitis as he is complaining of increasing low back pain and endocarditis. PLAN: 1. Suggest obtaining transesophageal echocardiogram especially in the setting of these multiple pulmonary nodules which could be septic emboli if he has right-sided endocarditis, although the patient denies use of IV drugs ever. 2. Obtain x-ray of lumbar spine to rule out diskitis; and if the back persists, consider obtain MRI of the lumbar spine once his kidney function improves. 3. Routine blood cultures today and tomorrow as he has persistent positive blood culture on 12/24. HIV, hepatitis B and hepatitis C have been ordered and are negative. I will obtain a chest x-ray PA and lateral to follow up on the progression of this pulmonary nodule to see if they are suggestive of septic emboli and cavitation. I will obtain that tomorrow once he is able to get a PA and lateral. 4. Discontinue IV nafcillin. The patient has very poor IV access and he only has one antecubital IV on the right arm. I would switch him to cefazolin 2 mg IV q 12 hours, which would be easier for IV access. 5.The case has been discussed with Dr. Funes, who will arrange for a transesophageal echocardiogram. HUMBERTO
--- NOTE | 2020-12-28 09:38 | REP ---
INDICATION: LOW back pain MSSA bacteremia. COMPARISON: None. TECHNIQUE: AP and lateral views of the lumbar spine FINDINGS: No evidence of fracture or malalignment. Vertebral heights and disc heights appear preserved. With a history of bacteremia, no evidence of osseous infection. Visualized soft tissues appear grossly unremarkable. IMPRESSION: No acute findings. Grossly unremarkable examination. If clinical concern persists, cross-sectional imaging such as CT or MRI is recommended. <Electronically signed by Jalen Good > 12/28/20 0934
[2020-12-28] MEDS: HumaLOG INSULIN (NovoLOG) PER UNIT SC SCH ×4 (10:03→22:15)
[2020-12-28] MEDS: LEVEMIR (INSULIN DETEMIR) 1 UNITS/0.01ML SC SCH ×2 (10:03→22:15)
--- NOTE | 2020-12-28 18:08 | IPNPDOC ---
Subjective Date Seen The patient was seen on 12/28/20. Subjective Chief Complaint/HPI continues to have low grade fever about 100 to 101 needing tylenol. Sugars in 200 to 350 range. Eating better. No SOB, no cough. Has some back pain, Xray LS spine is OK Objective Physical Examination General Exam: Positive: Alert, Cooperative, No Acute Distress Eye Exam: Positive: Conjunctiva & lids normal, EOMI ENT Exam: Positive: Atraumatic, Mucous membr. moist/pink, Pharynx Normal Neck Exam: Positive: Supple; Negative: JVD Chest Exam: Positive: Clear to auscultation, Normal air movement Heart Exam: Positive: Rate Normal, Regular Rhythm, Normal S1, Normal S2; Negative: Murmurs, Rubs Telemetry: Positive: No significant arrhythmia Abdomen Exam: Positive: Normal bowel sounds, Soft; Negative: Tenderness, Hepatospenomegaly Extremity Exam: Negative: Clubbing, Cyanosis Skin Exam: Positive: Breakdown (left distal leg wound stage II ulcer 2cm X4 cm) Neuro Exam: Positive: Normal Speech, Strength at 5/5 X4 ext, Normal Tone Psych Exam: Positive: Memory Intact, Oriented x 3 Assessment /Plan Assessment Patient is 50 years old male with past history of coronary artery diseases, CABG, diabetes mellitus on insulin Lantus 50 units twice a day, hyperlipidemia presented to the hospital with lethargy and altered mental status. Patient was somnolent on admission and couldn't provide detailed history. According to the ER physician, patient was found on the street by EMS. Patient stated that he ran out of his diabetes medication for one week. He moved to [place] from [place] recently and doesn't have PCP. In ER patient was found to have white blood count of 31.4, hemoglobin 15.9, glucose level 1037, creatinine 2.6, potassium 5.6, blood osmolarity 375, lipase level 449. Head CT negative. Chest x-ray negative for acute infiltrate. Patient was admitted for DKA, sepsis. DKA Secondary to running out of insulin and sepsis. now resolved Carb consistent diet and Fs AC and HS. Levemir and lispro Sepsis with MSSA bacteremia likely due to UTI with left ureteral obstruction and Pyelonephritis blood culture and urine culture MSSA ID consulted yesterday changed to Cefazolin from nafcillin to preserve veins. Echo done will need ISREAL Pneumonia CT chest with bibasilar opacities and bilateral perihilar infiltrates also has pulmonary nodules innumerable 3 mm to 1cm in size ? septic emboli CXR from 12/25: Bilateral perihilar and bibasilar reticulonodular and ground- glass opacities. echo done will need isreal ordered Pyelonephritis/ cystitis with left hydronephrosis Had cysto with left ureteral stent placement on 12/25/20 Cysto showed severe inflammation of the trigone causing occlusion of the left ureteral orifice. urine culture MSSA Cefazoln Acute renal failure/Oliguria Most likely secondary to dehydration due to DKA and obstructive uropathy Renal ultrasound and ct abdomen shows left hydronephrosis and left hydroureter. s/p cysto and left ureteral stent placement. creatinine from aug 10.7 so patient may have underlying CKD also. will continue to monitor. Stage II ulcer on the left lateral supramalleolar region does not look infected. Appreciate/agree with wound care consult Hypernatremia resolved Coronary artery diseases Status post CABG in 2014. Continue atorvastatin, clopidogrel and will start metoprolol Elevated troponin On 12/24/20 troponin was elevated to 0.04 Patient denied any chest pain EKG negative for ischemic changes Troponin trended down likely due to sepsis and deandre, dka. HLD continue statin Hypertension will stop lisinopril for now as has DEANDRE will restart metoprolol as needed. stop amlodipine. Plan/VTE VTE Prophylaxis Ordered?: Yes VS, I&O, 24H, Fishbone Vital Signs/I&O Vital Signs Date Time Temp Pulse Resp B/P (MAP) Pulse Ox O2 Delivery O2 Flow Rate FiO2 12/28/20 17:00 101.0 109 93 Nasal Cannula 2.0 12/28/20 16:00 24 146/76 (99) I&O- Last 24 Hours up to 6 AM 12/28/20 06:00 Intake Total 4575 ml Output Total 3650 ml Balance 925 ml Laboratory Data 24H LABS Laboratory Tests 2 12/27/20 19:00: Hepatitis B Surface Antigen NEGATIVE, Hepatitis C Antibody Index 0.2, HIV Antigen/Antibody Combo Qual NEGATIVE 12/27/20 20:48: Bedside Glucose (Misc Panel) 330H 12/28/20 04:48: Immature Granulocyte % (Auto) 2.1, Neutrophils (%) (Auto) 69.7H, Lymphocytes (%) (Auto) 17.6L, Monocytes (%) (Auto) 9.4H, Eosinophils (%) (Auto) 1.0, Basophils (%) (Auto) 0.2, Neutrophils # (Auto) 11.9H, Lymphocytes # (Auto) 3.0, Monocytes # (Auto) 1.6H, Eosinophils # (Auto) 0.2, Basophils # (Auto) 0.0, Nucleated Red Blood Cells % (auto) 0.0, Anion Gap 4L, Glomerular Filtration Rate 37.7L, Calcium Level 7.8L, Total Bilirubin 1.0, Aspartate Amino Transf (AST/SGOT) 96H, Alanine Aminotransferase (ALT/SGPT) 55, Alkaline Phosphatase 417H, C-Reactive Protein, Quantitative 18.80H, Total Protein 6.3L, Albumin 1.0L, Albumin/Globulin Ratio 0.2 12/28/20 07:43: Bedside Glucose (Misc Panel) 150H 12/28/20 11:52: Bedside Glucose (Misc Panel) 221H 12/28/20 17:13: Bedside Glucose (Misc Panel) 330H CBC/BMP Laboratory Tests 12/28/20 04:48 Microbiology Microbiology 12/28/20 Blood Culture, Received Pending 12/27/20 Blood Culture, Received Pending 12/24/20 Blood Culture - Preliminary, Resulted Staphylococcus Aureus 12/24/20 Blood Culture - Preliminary, Resulted 12/23/20 Blood Culture - Final, Complete NO GROWTH AFTER 5 DAYS 12/23/20 Respiratory Virus Panel (PCR) (CHIDI) - Final, Complete 12/23/20 Urine Culture - Final, Complete Staphylococcus Aureus 12/23/20 Blood Culture - Final, Complete Staphylococcus Aureus AIDAN MEYERS MD Dec 28, 2020 18:08
--- NOTE | 2020-12-28 20:15 | ECGEPIP ---
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
[2020-12-29] VITALS (18 sets, daily range): BP systolic 143–184; BP diastolic 76–97
[2020-12-29] MEDS: ACETAMINOPHEN 500 MG TAB PO PRN ×2 (03:58→12:52)
[2020-12-29] MEDS: ceFAZolin SOD 2 GM in IV 1 EA IV SCH ×2 (05:17→18:14)
[2020-12-29 05:41] LABS: BASO % 0.2 % (0.0-1.0); EOS # 0.2 10^3/uL (0.0-0.5); HEMATOCRIT 31.3 % (42.0-52.0); LYMPH # 2.9 10^3/uL (1.5-5.0); LYMPH % 15.7 % (24.0-44.0); MEAN CORPUSCULAR HEMOGLOBIN 28.1 pg (27.0-33.0); MEAN CORPUSCULAR HGB CONC 31.9 g/dl (32.0-36.5); MEAN CORPUSCULAR VOLUME 87.9 fl (80.0-96.0); MONO # 1.6 10^3/uL (0.0-0.8); MONO % 8.6 % (2.0-8.0); NEUTROPHILS # 13.5 10^3/uL (1.5-8.5); PLATELET COUNT, AUTOMATED 304 10^3/uL (150-450); RED BLOOD COUNT 3.56 10^6/uL (4.30-6.10)
[2020-12-29 05:48] LABS: WHITE BLOOD COUNT 18.7 10^3/uL (4.0-10.0)
[2020-12-29 06:06] LABS: CALCIUM LEVEL 7.6 MG/DL (8.5-10.1); CREATININE FOR GFR 1.78 MG/DL (0.70-1.30); GLOMERULAR FILTRATION RATE 43.6 (>60); POTASSIUM SERUM 4.4 MEQ/L (3.5-5.1)
--- NOTE | 2020-12-29 07:58 | IPN ---
PROGRESS NOTE DATE: 12/28/2020 SUBJECTIVE: Bernardo seems to be doing better today. He is more alert. He still has fevers up to 101. His sugars have been ranging between 200 and 350. His appetite is better. He was able to get out of bed; even though he has been very weak he has been out of bed to the chair today. He had some low back pain. Lumbar spine x-ray was normal. OBJECTIVE: GENERAL: He is a sick looking gentleman in no acute distress. VITAL SIGNS: Temperature 101, pulse 109, respirations 24, O2 sat 93% on 2 liters nasal cannula. Blood pressure 146/76. HEART: Normal S1, S2, tachycardic, no murmurs appreciated. LUNGS: Diminished breath sounds at the base but clear, no wheezes, rhonchi or rales. ABDOMEN: Obese, soft, nontender. EXTREMITIES: +1 pitting edema bilaterally. Left lateral leg has an ulcer measuring 2 x 2 cm, clean ulceration. SKIN: Diffuse vitiligo but no rashes or petechia or lesions such as endocarditis. LABS: White count 17.1 which has increased from yesterday at 14.4, hemoglobin 10.3, hematocrit 32.1, platelets 249, 69% neutrophils, 17% lymphocytes, 9% monocytes. Sodium 141, potassium 4.3, chloride 114, bicarb 23, BUN 47, creatinine 2.02, glucose 178, calcium 7.8, bilirubin 1. AST 96, ALT 55, alk phos 417, CRP 18.8. Total protein 6.3, albumin 1. Blood cultures on : Two sets were positive for MSSA. On 12/24 two sets are positive also for MSSA. On 12/27 blood cultures and 12/28 blood cultures are pending. Lumbar spine x-ray showed no evidence of acute disease. Chest x-ray shows findings suggestive of scattered bilateral airspace disease. ASSESSMENT/PLAN: 1. Staph aureus bacteremia with severe sepsis on IV Cefazolin at dose of 2 gm every 12 hours. The patient had 48 hours of bacteremia along with abnormal chest x-ray with multiple pulmonary nodules makes diagnosis of endocarditis possible. Although the patient denies IV drug abuse I would still obtain a transesophageal echocardiogram to rule out tricuspid valve endocarditis or left-sided endocarditis. 2. Urinary tract infection with Staph aureus and left-sided hydroureteronephrosis, status post stenting. The patient is to be discharged with [place] catheter due to obstruction. On IV Cefazolin. 3. Pulmonary nodules: Will need to be followed up in [address] Continue to monitor blood cultures to make sure that 12/27 and 12/28 cultures are negative and if not continue repeating blood cultures until there are two negative sets. Continue with IV Kefzol if his GFR continues to improve, increase the dose to 2 gm every 8 hours once GFR is over 50. Current GFR is 37.7. 4. Please consult cardiology for transesophageal echocardiogram to rule out endocarditis. 5. If patient continues with back pain consider obtaining MRI of L/S spine.
[2020-12-29] MEDS: METOPROLOL TART 25 MG TABLET PO SCH ×3 (08:08→21:00)
[2020-12-29] MEDS: LEVEMIR (INSULIN DETEMIR) 1 UNITS/0.01ML SC SCH ×2 (08:30→21:00)
[2020-12-29] MEDS: PANTOPRAZOLE 40MG TAB (PROTONIX) PO SCH (08:31)
[2020-12-29] MEDS: HumaLOG INSULIN (NovoLOG) PER UNIT SC SCH ×4 (08:31→20:51)
[2020-12-29] MEDS: CLOPIDOGREL 75 MG TAB PO SCH (08:32)
[2020-12-29] MEDS: SANTYL OINT 30GM TOP SCH (08:33)
--- NOTE | 2020-12-29 09:03 | IPNPDOC ---
Subjective Date Seen The patient was seen on 12/29/20. Subjective Chief Complaint/HPI continues to have low grade fever 100 to 101. needing round the clock tylenol. Very weak but was able to sit up by the side of bed walk to chair and sit for about 15 minutes. Planned for ISREAL today. Objective Physical Examination General Exam: Positive: Alert, Cooperative, No Acute Distress Eye Exam: Positive: Conjunctiva & lids normal, EOMI ENT Exam: Positive: Atraumatic, Mucous membr. moist/pink, Pharynx Normal Neck Exam: Positive: Supple; Negative: JVD Chest Exam: Positive: Clear to auscultation, Normal air movement Heart Exam: Positive: Rate Normal, Regular Rhythm, Normal S1, Normal S2; Negative: Murmurs, Rubs Telemetry: Positive: No significant arrhythmia Abdomen Exam: Positive: Normal bowel sounds, Soft; Negative: Tenderness, Hepatospenomegaly Extremity Exam: Negative: Clubbing, Cyanosis, Edema Skin Exam: Positive: Breakdown (left distal leg wound stage II ulcer 2cm X4 cm) Neuro Exam: Positive: Normal Speech, Strength at 5/5 X4 ext, Normal Tone Psych Exam: Positive: Memory Intact, Oriented x 3 Assessment /Plan Assessment Patient is 50 years old male with past history of coronary artery diseases, CABG, diabetes mellitus on insulin Lantus 50 units twice a day, hyperlipidemia presented to the hospital with lethargy and altered mental status. Patient was somnolent on admission and couldn't provide detailed history. According to the ER physician, patient was found on the street by EMS. Patient stated that he ran out of his diabetes medication for one week. He moved to [place] from [facility] recently and doesn't have PCP. In ER patient was found to have white blood count of 31.4, hemoglobin 15.9, glucose level 1037, creatinine 2.6, potassium 5.6, blood osmolarity 375, lipase level 449. Head CT negative. Chest x-ray negative for acute infiltrate. Patient was admitted for DKA, sepsis. Sepsis with MSSA bacteremia likely due to UTI with left ureteral obstruction and Pyelonephritis blood culture and urine culture MSSA changed to Cefazolin from nafcillin to preserve veins. Echo done EF of 50% to 55%. LVH and grade 1 diastolic dysfunction. ISREAL byu Dr Zuleta. Pneumonia CT chest with bibasilar opacities and bilateral perihilar infiltrates also has pulmonary nodules innumerable 3 mm to 1cm in size ? septic emboli CXR from 12/25: Bilateral perihilar and bibasilar reticulonodular and ground- glass opacities. isreal ordered Pyelonephritis/ cystitis with left hydronephrosis Had cysto with left ureteral stent placement on 12/25/20 Cysto showed severe inflammation of the trigone causing occlusion of the left ureteral orifice. Patient will have to go home with [place] as he had obstruction. To follow up with urology for catheter removal urine culture MSSA Cefazoln DKA Secondary to running out of insulin and sepsis. now resolved Carb consistent diet and Fs AC and HS. Levemir and lispro Acute renal failure Most likely secondary to dehydration due to DKA and obstructive uropathy Renal ultrasound and ct abdomen shows left hydronephrosis and left hydroureter. s/p cysto and left ureteral stent placement. creatinine from dec 1.7 so patient may have underlying CKD also. Now improving. Stage II ulcer on the left lateral supramalleolar region does not look infected. Appreciate/agree with wound care consult Hypernatremia resolved Coronary artery diseases Status post CABG in 2014. Continue atorvastatin, clopidogrel and will start metoprolol Elevated troponin On 12/24/20 troponin was elevated to 0.04 Patient denied any chest pain EKG negative for ischemic changes Troponin trended down likely due to sepsis and deandre, dka. HLD continue statin Hypertension will stop lisinopril for now as has DEANDRE will restart metoprolol as needed. stop amlodipine. Plan/VTE VTE Prophylaxis Ordered?: Yes VS, I&O, 24H, Fishbone Vital Signs/I&O Vital Signs Date Time Temp Pulse Resp B/P (MAP) Pulse Ox O2 Delivery O2 Flow Rate FiO2 12/29/20 08:32 101 158/89 12/29/20 06:00 99.9 26 92 Nasal Cannula 2.0 I&O- Last 24 Hours up to 6 AM 12/29/20 06:00 Intake Total 2760 ml Output Total 4025 ml Balance -1265 ml Laboratory Data 24H LABS Laboratory Tests 2 12/28/20 11:52: Bedside Glucose (Misc Panel) 221H 12/28/20 17:13: Bedside Glucose (Misc Panel) 330H 12/28/20 22:10: Bedside Glucose (Misc Panel) 266H 12/29/20 05:16: Immature Granulocyte % (Auto) 2.5, Neutrophils (%) (Auto) 72.0H, Lymphocytes (%) (Auto) 15.7L, Monocytes (%) (Auto) 8.6H, Eosinophils (%) (Auto) 1.0, Basophils (%) (Auto) 0.2, Neutrophils # (Auto) 13.5H, Lymphocytes # (Auto) 2.9, Monocytes # (Auto) 1.6H, Eosinophils # (Auto) 0.2, Basophils # (Auto) 0.0, Nucleated Red Blood Cells % (auto) 0.0, Anion Gap 7L, Glomerular Filtration Rate 43.6L, Calcium Level 7.6L 12/29/20 07:45: Bedside Glucose (Misc Panel) 179H CBC/BMP Laboratory Tests 12/29/20 05:16 Microbiology Microbiology 12/28/20 Blood Culture - Preliminary, Resulted 12/27/20 Blood Culture - Preliminary, Resulted No growth after 24 hours . All specim... 12/24/20 Blood Culture - Final, Complete Staphylococcus Aureus 12/24/20 Blood Culture - Preliminary, Resulted 12/23/20 Blood Culture - Final, Complete NO GROWTH AFTER 5 DAYS 12/23/20 Respiratory Virus Panel (PCR) (CHIDI) - Final, Complete 12/23/20 Urine Culture - Final, Complete Staphylococcus Aureus 12/23/20 Blood Culture - Final, Complete Staphylococcus Aureus AIDAN MEYERS MD Dec 29, 2020 09:03
[2020-12-29] MEDS: ATORVASTATIN 20 MG TAB PO SCH (11:46)
[2020-12-29] MEDS ORDERED: MIDAZOLAM INJ 2MG/2ML VIAL (J2250 PER 1MG) As Ordered ONE (17:36)
[2020-12-29] MEDS ORDERED: MIDAZOLAM INJ 2MG/2ML VIAL (J2250 PER 1MG) IV STA (17:59)
[2020-12-29] MEDS ORDERED: CETACAINE SPRAY 5GM TOP ONE (19:00)
[2020-12-30] VITALS (9 sets, daily range): BP systolic 137–179; BP diastolic 80–97
[2020-12-30] MEDS: ceFAZolin SOD 2 GM in IV 1 EA IV SCH ×2 (05:26→17:33)
[2020-12-30 05:33] LABS: BASO % 0.2 % (0.0-1.0); EOS # 0.2 10^3/uL (0.0-0.5); EOS % 0.8 % (0.0-3.0); HEMATOCRIT 31.3 % (42.0-52.0); HEMOGLOBIN 9.9 g/dl (13.5-17.5); LYMPH # 2.4 10^3/uL (1.5-5.0); LYMPH % 12.4 % (24.0-44.0); MEAN CORPUSCULAR HEMOGLOBIN 28.1 pg (27.0-33.0); MEAN CORPUSCULAR HGB CONC 31.6 g/dl (32.0-36.5); MEAN CORPUSCULAR VOLUME 88.9 fl (80.0-96.0); MONO # 1.4 10^3/uL (0.0-0.8); MONO % 7.1 % (2.0-8.0); NEUTROPHILS # 15.3 10^3/uL (1.5-8.5); NEUTROPHILS % 78.1 % (36.0-66.0); PLATELET COUNT, AUTOMATED 339 10^3/uL (150-450); RED BLOOD COUNT 3.52 10^6/uL (4.30-6.10); WHITE BLOOD COUNT 19.6 10^3/uL (4.0-10.0)
[2020-12-30 06:07] LABS: C REACTIVE PROTEIN QUANTITATIV 20.1 MG/DL (0.00-0.30); CALCIUM LEVEL 7.8 MG/DL (8.5-10.1); CREATININE FOR GFR 1.56 MG/DL (0.70-1.30); GLOMERULAR FILTRATION RATE 50.8 (>60); POTASSIUM SERUM 4.6 MEQ/L (3.5-5.1)
[2020-12-30] MEDS: LEVEMIR (INSULIN DETEMIR) 1 UNITS/0.01ML SC SCH (08:38)
[2020-12-30] MEDS: HumaLOG INSULIN (NovoLOG) PER UNIT SC SCH ×4 (08:39→21:23)
[2020-12-30] MEDS: METOPROLOL TART 25 MG TABLET PO SCH ×2 (08:39→21:22)
[2020-12-30] MEDS: ATORVASTATIN 20 MG TAB PO SCH (08:40)
[2020-12-30] MEDS: PANTOPRAZOLE 40MG TAB (PROTONIX) PO SCH (08:40)
[2020-12-30] MEDS: CLOPIDOGREL 75 MG TAB PO SCH (08:40)
[2020-12-30] MEDS: SANTYL OINT 30GM TOP SCH (08:41)
--- NOTE | 2020-12-30 09:20 | T-ECHO ---
TRANSESOPHAGEAL ECHO DATE: 12/29/2020 REFERRING PHYSICIAN: Jo Funes MD INDICATIONS: Methicillin-sensitive Staphylococcus aureus bacteremia. PREPROCEDURE DIAGNOSIS: Methicillin-sensitive Staphylococcus aureus bacteremia. POSTPROCEDURE DIAGNOSIS: Methicillin-sensitive Staphylococcus aureus bacteremia. PRINCIPAL CLINICAL FINDINGS: No infective endocarditis (no vegetations). PROCEDURE PERFORMED BY: Gamaliel Zuleta M.D. COPIER REPAIR TECHNICIAN: None. PROCEDURE PERFORMED: Transesophageal echocardiogram. INTRAVENOUS (IV) SEDATION: 2 mg midazolam IV. COMPLICATIONS: None. DESCRIPTION OF PROCEDURE: The patient received Cetacaine spray to the back of the pharynx. He received a total of 2 mg of midazolam IV for light IV conscious sedation. The patient tolerated the procedure well without any immediate complications. Rhythm was sinus. Esophageal intubation was accomplished by Dr. Zuleta without difficulty using a Mcdaniel 3D transesophageal echocardiogram probe. The left ventricle appeared normal in size and systolic function. Right ventricle appeared normal in size and systolic function. Atria did not appear to be enlarged. No mass or thrombi were seen within the atria or their appendages. Lipomatous hypertrophy of the interatrial septum was present. No atrial septal defect by color flow Doppler. No pericardial effusion. All of the cardiac valves were structurally and functionally normal. Aortic valve was 3-cuspid. Mild mitral regurgitation was present and within physiologic limits. No aortic, tricuspid, or pulmonic valve regurgitation seen. Distal aortic arch and descending thoracic aorta showed up to a moderate amount of atherosclerotic plaque without mobile components. CONCLUSIONS: 1. No vegetations. 2. Two moderate atheromatous plaques seen in the distal aortic arch and descending thoracic aorta. 3. Lipomatous hypertrophy of the interatrial septum. 4. Normal left ventricle size and systolic function. LVEF 65% by visual estimate. No regional LV wall motion abnormalities. 5. Otherwise normal appearing echocardiogram Doppler findings. Gamaliel Zultea M.D.
[2020-12-30] MEDS: **hydrALAZINE HCL** 25 MG TAB PO SCH ×2 (12:00→18:50)
--- NOTE | 2020-12-30 12:01 | IPNPDOC ---
Subjective Date Seen The patient was seen on 12/30/20. Subjective Chief Complaint/HPI No new issues overnight. Continues to require 2 to 4 liters of oxygen. Urine output much improved. Still has some edema. Continues to have low grade fever of 100.0 Objective Physical Examination General Exam: Positive: Alert, Cooperative, No Acute Distress Eye Exam: Positive: Conjunctiva & lids normal, EOMI ENT Exam: Positive: Atraumatic, Mucous membr. moist/pink, Pharynx Normal Neck Exam: Positive: Supple; Negative: JVD Chest Exam: Positive: Normal air movement, Other (bibasal crackles. ); Negative: Rhonchi, Wheezing Heart Exam: Positive: Rate Normal, Regular Rhythm, Normal S1, Normal S2; Negative: Murmurs, Rubs Telemetry: Positive: No significant arrhythmia Abdomen Exam: Positive: Normal bowel sounds, Soft; Negative: Tenderness, Hepatospenomegaly Extremity Exam: Positive: Edema (trace bipedal edema, and also in both hands); Negative: Clubbing, Cyanosis Skin Exam: Positive: Breakdown (left distal leg wound stage II ulcer 2cm X4 cm) Neuro Exam: Positive: Normal Speech, Strength at 5/5 X4 ext, Normal Tone Psych Exam: Positive: Memory Intact, Oriented x 3 Assessment /Plan Assessment Patient is 50 years old male with past history of coronary artery diseases, CABG, diabetes mellitus on insulin Lantus 50 units twice a day, hyperlipidemia presented to the hospital with lethargy and altered mental status. Patient was somnolent on admission and couldn't provide detailed history. According to the ER physician, patient was found on the street by EMS. Patient stated that he ran out of his diabetes medication for one week. He moved to [place] from [place] recently and doesn't have PCP. In ER patient was found to have white blood count of 31.4, hemoglobin 15.9, glucose level 1037, creatinine 2.6, potassium 5.6, blood osmolarity 375, lipase level 449. Head CT negative. Chest x-ray negative for acute infiltrate. Patient was admitted for DKA, sepsis. Sepsis with MSSA bacteremia likely due to UTI with left ureteral obstruction and Pyelonephritis blood culture and urine culture MSSA postive still on 12/28/20 changed to Cefazolin from nafcillin to preserve veins. Echo done EF of 50% to 55%. LVH and grade 1 diastolic dysfunction. CONCEPCION no vegetations. EF of 65%, lipomatous hypertrophy of the atrial septum no RWMA. Pneumonia with sepric emboli CT chest with bibasilar opacities and bilateral perihilar infiltrates also has pulmonary nodules innumerable 3 mm to 1cm in size ? septic emboli CXR from 12/25: Bilateral perihilar and bibasilar reticulonodular and ground- glass opacities. Pyelonephritis/ cystitis with left hydronephrosis Had cysto with left ureteral stent placement on 12/25/20 Cysto showed severe inflammation of the trigone causing occlusion of the left ureteral orifice. Patient will have to go home with [place] as he had obstruction. To follow up with urology for catheter removal urine culture MSSA Cefazoln DKA Secondary to running out of insulin and sepsis. now resolved Carb consistent diet and Fs AC and HS. Levemir and lispro Acute renal failure Most likely secondary to dehydration due to DKA and obstructive uropathy Renal ultrasound and ct abdomen shows left hydronephrosis and left hydroureter. s/p cysto and left ureteral stent placement. creatinine from aug 1.7 so patient may have underlying CKD also. Now improving. Stage II ulcer on the left lateral supramalleolar region does not look infected. Appreciate/agree with wound care consult Hypernatremia resolved Coronary artery diseases Status post CABG in 2014. Continue atorvastatin, clopidogrel and will start metoprolol Elevated troponin On 12/24/20 troponin was elevated to 0.04 Patient denied any chest pain EKG negative for ischemic changes Troponin trended down likely due to sepsis and deandre, dka. HLD continue statin Hypertension will stop lisinopril for now as has DEANDRE will restart metoprolol as needed. stop amlodipine. Plan/VTE VTE Prophylaxis Ordered?: Yes VS, I&O, 24H, Fishbone Vital Signs/I&O Vital Signs Date Time Temp Pulse Resp B/P (MAP) Pulse Ox O2 Delivery O2 Flow Rate FiO2 12/30/20 10:00 99.9 101 22 161/84 (109) 91 Nasal Cannula 2.0 I&O- Last 24 Hours up to 6 AM 12/30/20 06:00 Intake Total 1285 ml Output Total 2760 ml Balance -1475 ml Laboratory Data 24H LABS Laboratory Tests 2 12/29/20 17:17: Bedside Glucose (Misc Panel) 149H 12/29/20 20:49: Bedside Glucose (Misc Panel) 125H 12/30/20 05:12: Immature Granulocyte % (Auto) 1.4, Neutrophils (%) (Auto) 78.1H, Lymphocytes (%) (Auto) 12.4L, Monocytes (%) (Auto) 7.1, Eosinophils (%) (Auto) 0.8, Basophils (%) (Auto) 0.2, Neutrophils # (Auto) 15.3H, Lymphocytes # (Auto) 2.4, Monocytes # (Auto) 1.4H, Eosinophils # (Auto) 0.2, Basophils # (Auto) 0.0, Nucleated Red Blood Cells % (auto) 0.0, Anion Gap 7L, Glomerular Filtration Rate 50.8L, Calcium Level 7.8L, C-Reactive Protein, Quantitative 20.10H 12/30/20 08:18: Bedside Glucose (Misc Panel) 229H CBC/BMP Laboratory Tests 12/30/20 05:12 Microbiology Microbiology 12/30/20 Blood Culture, Received Pending 12/28/20 Blood Culture - Preliminary, Resulted Staphylococcus Aureus 12/27/20 Blood Culture - Preliminary, Resulted No Growth after 48 hours. All Specime... 12/24/20 Blood Culture - Final, Complete Staphylococcus Aureus 12/24/20 Blood Culture - Final, Complete Staphylococcus Aureus 12/23/20 Blood Culture - Final, Complete NO GROWTH AFTER 5 DAYS 12/23/20 Respiratory Virus Panel (PCR) (CHIDI) - Final, Complete 12/23/20 Urine Culture - Final, Complete Staphylococcus Aureus 12/23/20 Blood Culture - Final, Complete Staphylococcus Aureus AIDAN MEYERS MD Dec 30, 2020 12:00
[2020-12-30] MEDS: SENOKOT S TAB PO SCH ×2 (12:33→21:00)
[2020-12-30] MEDS ORDERED: ISOVUE-370 76% 100ML VIAL As Ordered ONE (16:18)
[2020-12-30] MEDS: GASTROGRAFIN SOLUTION 30ML PO SCH ×2 (16:50→17:33)
[2020-12-30] MEDS ORDERED: LEVEMIR (INSULIN DETEMIR) 1 UNITS/0.01ML SC SCH (21:00)
[2020-12-31] VITALS (8 sets, daily range): BP systolic 124–160; BP diastolic 70–85
[2020-12-31] MEDS: ceFAZolin SOD 2 GM in IV 1 EA IV SCH ×3 (01:05→19:01)
[2020-12-31] MEDS: **hydrALAZINE HCL** 25 MG TAB PO SCH ×4 (05:55→18:00)
[2020-12-31 06:15] LABS: BASO # 0.1 10^3/uL (0.0-0.2); BASO % 0.2 % (0.0-1.0); EOS # 0.2 10^3/uL (0.0-0.5); EOS % 0.8 % (0.0-3.0); HEMATOCRIT 31.2 % (42.0-52.0); HEMOGLOBIN 9.7 g/dl (13.5-17.5); LYMPH # 2.7 10^3/uL (1.5-5.0); LYMPH % 12.7 % (24.0-44.0); MEAN CORPUSCULAR HEMOGLOBIN 27.6 pg (27.0-33.0); MEAN CORPUSCULAR HGB CONC 31.1 g/dl (32.0-36.5); MEAN CORPUSCULAR VOLUME 88.6 fl (80.0-96.0); MONO # 1.4 10^3/uL (0.0-0.8); MONO % 6.7 % (2.0-8.0); NEUTROPHILS # 16.7 10^3/uL (1.5-8.5); NEUTROPHILS % 78.4 % (36.0-66.0); PLATELET COUNT, AUTOMATED 392 10^3/uL (150-450); RED BLOOD COUNT 3.52 10^6/uL (4.30-6.10); WHITE BLOOD COUNT 21.3 10^3/uL (4.0-10.0)
[2020-12-31 06:39] LABS: CALCIUM LEVEL 7.9 MG/DL (8.5-10.1); CREATININE FOR GFR 1.53 MG/DL (0.70-1.30); POTASSIUM SERUM 4.1 MEQ/L (3.5-5.1)
--- NOTE | 2020-12-31 07:00 | IPN ---
PROGRESS NOTE DATE: 12/30/2020 SUBJECTIVE: Bernardo continues to be febrile, but he has been moved from the ICU to [address] [place] [address]. He has no complaints except for generalized weakness. He has no nausea, vomiting or diarrhea. No abdominal pain. No back pain. He has a Richmond catheter that remains in place without any suprapubic pain. He has mild shortness of breath. He is on oxygen, but does not have cough. LABORATORY DATA: White count 19.6, which has increased in the past three days from 14.4, hemoglobin 9.9, hematocrit 31.3, platelets 339, 78% neutrophils, 12% lymphocytes, 7% monocytes. Sodium 140, potassium 4.6, chloride 111, bicarbonate 22, BUN 29, creatinine 1.56, glucose 240, calcium 7.8, AST 96, ALT 55, alkaline phosphatase 417. C-reactive protein was 20.1, slight increase from 18.8 two days ago. Blood cultures persistently positive with methicillin-susceptible Staphylococcus aureus (MSSA) from 12/23 until 12/28. Repeat blood culture on 12/30 is pending. Lumbar spine x-ray showed no acute findings, grossly unremarkable. PHYSICAL EXAMINATION: Temperature is 98.4, pulse 107, respirations 20, blood pressure 137/80, O2 saturation 89% on 2 liters nasal canula. Heart: Normal S1, S2, no murmurs, rubs or gallops appreciated. Tachycardic. Lungs: Diminished at the bases, but clear. No wheezes, rales or rhonchi. Abdomen: Obese, soft, nontender. Back: No costovertebral angle (CVA) tenderness or lumbosacral tenderness. Extremities: +1 pitting edema bilaterally. Genitourinary (): He has a Richmond catheter with dark urine. MEDICATIONS: Cefazolin 2 gm IV q 12 hours, currently day #4. IMPRESSION: 1. Staphylococcus aureus bacteremia with severe sepsis of urinary origin, status post transesophageal echocardiogram, which was negative for vegetation. Status post stenting for left-sided hydronephrosis and Richmond catheter as he had trigonitis. My concern is the patient continues to be febrile with bacteremia for the past 5 days, which makes an abscess still un-drained a possibility. Will obtain follow up CT abdomen, chest and pelvis with contrast, as the previous ones were done without contrast. This has been ordered by Dr. Funes. 2. Pyelonephritis with left-sided hydronephrosis, status post stenting on cefazolin with an improved creatinine to 1.56, his dose of cefazolin was increased to 2 gm IV q 8 hours. 3. Insulin dependent diabetes better controlled, glucose is running between 125 and 355 currently. Plan repeat blood cultures until two sets are negative continuously. Obtain CT abdomen, pelvis and chest with contrast tonight. Continue with IV cefazolin at 2 gm q 8 hours. PLAN: Plan repeat blood cultures until two sets are negative continuously. Obtain CT abdomen, pelvis and chest with contrast tonight. Continue with IV cefazolin at 2 gm q 8 hours.
[2020-12-31] MEDS: HumaLOG INSULIN (NovoLOG) PER UNIT SC SCH ×4 (08:36→20:55)
[2020-12-31] MEDS: PANTOPRAZOLE 40MG TAB (PROTONIX) PO SCH (08:36)
[2020-12-31] MEDS: LEVEMIR (INSULIN DETEMIR) 1 UNITS/0.01ML SC SCH ×2 (08:36→20:55)
[2020-12-31] MEDS: ATORVASTATIN 20 MG TAB PO SCH (08:36)
[2020-12-31] MEDS: SANTYL OINT 30GM TOP SCH (08:37)
[2020-12-31] MEDS: CLOPIDOGREL 75 MG TAB PO SCH (08:37)
[2020-12-31] MEDS: METOPROLOL TART 25 MG TABLET PO SCH ×2 (08:42→20:59)
[2020-12-31] MEDS: SENOKOT S TAB PO SCH ×2 (08:42→20:59)
--- NOTE | 2020-12-31 09:13 | REP ---
INDICATION: intraabdominal abscess/ lung abscess COMPARISON: 12/23/2020 TECHNIQUE: Axial contrast enhanced images from the thoracic inlet to the upper abdomen with coronal and sagittal reformations using 75 ml Isovue 370 intravenous contrast material. [address] CT examination was performed using the following dose reduction techniques: Automated exposure control, adjustment of mA and/or kv according to the patient's size, and use of iterative reconstruction technique. FINDINGS: Innumerable bilateral rounded pulmonary nodules and opacities have considerably increased in both quantity and size including right upper lobe lesions measuring greater than 3 cm diameter-some of which have central partially cavitary type changes. Small bilateral pleural effusions and scattered atelectasis is appreciated. Further evaluation is limited due to significant respiratory motion artifact. No pneumothorax. Reactive adenopathy noted. Tracheobronchial tree is patent. Mediastinum demonstrates stable atherosclerotic changes to the thoracic aorta and coronary arteries along with evidence for prior sternotomy and CABG. No aortic aneurysm or dissection. No pericardial effusion. Surrounding musculoskeletal structures are intact. IMPRESSION: Considerably increased pulmonary parenchymal changes as described above. Findings likely represent multifocal septic emboli/multifocal pneumonia with atelectasis and small pleural effusions. <Electronically signed by Ramon North > 12/31/20 [id number]
--- NOTE | 2020-12-31 09:31 | REP ---
INDICATION: intraabdominal abscess. COMPARISON: Comparison abdominal CT study December 23, 2020.. TECHNIQUE: Helical scanning is acquired following the intravenous injection of 100 mL of Isovue 370. 3 mm axial images re-formatted. Coronal and sagittal MPR images are generated. FINDINGS: Preliminary digital duplicator punch set up operator radiograph demonstrates median sternotomy wires and elevated right hemidiaphragm. There is a new small bilateral pleural effusion right greater than left. There are multifocal nodular densities in the lung bases bilaterally which are new. These may reflect septic emboli given their appearance in the short interval since the study done 1 week ago. There is compressive atelectatic changes in the lower lobes bilaterally. Liver and spleen adrenals and pancreas remain unremarkable. No abnormality noted in the gallbladder. The left kidney remains enlarged. A double pigtail left ureteral stent is seen in good position and left-sided hydronephrosis is resolved. Fused bladder wall thickening is observed with Richmond catheter and the distal end of the double-pigtail ureteral stent in the urinary bladder. There is extrarenal pelvis configuration of the right kidney but no right-sided hydroureter or significant hydronephrosis is seen. Small and large bowel loops are unremarkable. Pelvic images demonstrate a 2.3 cm low-density area posterior and to the left of the prosthetic urethra containing a Richmond catheter. This is consistent with a small prostate or periprostatic abscess. This appears to be somewhat loculated and extends several cm superior between the prostate and the adjacent rectum. Overall craniocaudal dimension is 3.2 cm. Small and large bowel loops are unremarkable. Normal appendix is seen. There is a tiny quantity of fluid along the left pericolic gutter. IMPRESSION: Findings consistent with left prostate abscess extending into the tissue between the posterior border of the prostate and the adjacent rectum on the left side. Richmond catheter. Left ureteral stent with improved left-sided hydronephrosis. Persistent swelling left kidney. Small bilateral pleural effusions are seen. Pulmonary nodules have developed in the bases suggesting septic emboli. <Electronically signed by Ricardo Ann > 12/31/20 [id number]
--- NOTE | 2020-12-31 10:18 | IPNPDOC ---
Subjective Date Seen The patient was seen on 12/31/20. Subjective Chief Complaint/HPI Continues to have low grade fever, continues to need oxygen . Now also complaining of right shoulder pain. Objective Physical Examination General Exam: Positive: Alert, Cooperative, No Acute Distress Eye Exam: Positive: Conjunctiva & lids normal, EOMI ENT Exam: Positive: Atraumatic, Mucous membr. moist/pink, Pharynx Normal Neck Exam: Positive: Supple; Negative: JVD Chest Exam: Positive: Normal air movement, Other (bibasal crackles. ); Negative: Rhonchi, Wheezing Heart Exam: Positive: Rate Normal, Regular Rhythm, Normal S1, Normal S2; Negative: Murmurs, Rubs Telemetry: Positive: No significant arrhythmia Abdomen Exam: Positive: Normal bowel sounds, Soft; Negative: Tenderness, Hepatospenomegaly Extremity Exam: Positive: Edema (trace bipedal edema, and also in both hands); Negative: Clubbing, Cyanosis Skin Exam: Positive: Breakdown (left distal leg wound stage II ulcer 2cm X4 cm) Neuro Exam: Positive: Normal Speech, Strength at 5/5 X4 ext, Normal Tone Psych Exam: Positive: Memory Intact, Oriented x 3 Assessment /Plan Assessment Patient is 50 years old male with past history of coronary artery diseases, CABG, diabetes mellitus on insulin Lantus 50 units twice a day, hyperlipidemia presented to the hospital with lethargy and altered mental status. Patient was somnolent on admission and couldn't provide detailed history. According to the ER physician, patient was found on the street by EMS. Patient stated that he ran out of his diabetes medication for one week. He moved to [place] from [place] recently and doesn't have PCP. In ER patient was found to have white blood count of 31.4, hemoglobin 15.9, glucose level 1037, creatinine 2.6, potassium 5.6, blood osmolarity 375, lipase level 449. Head CT negative. Chest x-ray negative for acute infiltrate. Patient was admitted for DKA, sepsis. Complaining of right shoulder pain will get MRI of right shoulder. Prostate abscess in CT abdomen Dr Saleh is going to reevaluate. Sepsis with MSSA bacteremia, septic emboli, pyelonephritis, likely source urinary tract / prostate CT abdomen pelvis shows prostate abscess. blood culture and urine culture MSSA positive still on 12/28/20 changed to Cefazolin from nafcillin to preserve veins. Echo done EF of 50% to 55%. LVH and grade 1 diastolic dysfunction. CONCEPCION no vegetations. EF of 65%, lipomatous hypertrophy of the atrial septum no RWMA. patient will need 4 weeks of antibiotics will place a picc line once blood cultures are negative. Pyelonephritis/ cystitis with left hydronephrosis Had cysto with left ureteral stent placement on 12/25/20 Cysto showed severe inflammation of the trigone causing occlusion of the left ureteral orifice. Patient will have to go home with Richmond as he had obstruction. To follow up with urology for catheter removal urine culture MSSA Cefazoln DKA Secondary to running out of insulin and sepsis. now resolved Carb consistent diet and Fs AC and HS. Levemir and lispro Acute renal failure Most likely secondary to dehydration due to DKA and obstructive uropathy creatinine from 09.16 so patient may have underlying CKD also. Now improving. Stage II ulcer on the left lateral supramalleolar region does not look infected. Appreciate/agree with wound care consult Hypernatremia resolved Coronary artery diseases Status post CABG in 2014. Continue atorvastatin, clopidogrel, metoprolol Elevated troponin On 12/24/20 troponin was elevated to 0.04 Patient denied any chest pain EKG negative for ischemic changes Troponin trended down likely due to sepsis and deandre, dka. HLD continue statin Hypertension will stop lisinopril for now as has DEANDRE amlodipine and metoprolol Plan/VTE VTE Prophylaxis Ordered?: Yes VS, I&O, 24H, Fishbone Vital Signs/I&O Vital Signs Date Time Temp Pulse Resp B/P (MAP) Pulse Ox O2 Delivery O2 Flow Rate FiO2 12/31/20 08:42 104 138/72 12/31/20 06:00 98.2 20 91 Nasal Cannula 2.0 I&O- Last 24 Hours up to 6 AM 12/31/20 06:00 Intake Total 3600 ml Output Total 4400 ml Balance -800 ml Laboratory Data 24H LABS Laboratory Tests 2 12/30/20 11:49: Bedside Glucose (Misc Panel) 284H 12/30/20 16:27: Bedside Glucose (Misc Panel) 355H 12/30/20 20:20: Bedside Glucose (Misc Panel) 316H 12/31/20 05:46: Immature Granulocyte % (Auto) 1.2, Neutrophils (%) (Auto) 78.4H, Lymphocytes (%) (Auto) 12.7L, Monocytes (%) (Auto) 6.7, Eosinophils (%) (Auto) 0.8, Basophils (%) (Auto) 0.2, Neutrophils # (Auto) 16.7H, Lymphocytes # (Auto) 2.7, Monocytes # (Auto) 1.4H, Eosinophils # (Auto) 0.2, Basophils # (Auto) 0.1, Nucleated Red Blood Cells % (auto) 0.0, Anion Gap 6L, Glomerular Filtration Rate 52.0L, Calcium Level 7.9L CBC/BMP Laboratory Tests 12/31/20 05:46 Microbiology Microbiology 12/31/20 Blood Culture, Received Pending 12/30/20 Blood Culture - Preliminary, Resulted No growth after 24 hours . All specim... 12/28/20 Blood Culture - Final, Complete Staphylococcus Aureus 12/27/20 Blood Culture - Preliminary, Resulted No Growth after 72 hours. All specime... 12/24/20 Blood Culture - Final, Complete Staphylococcus Aureus 12/24/20 Blood Culture - Final, Complete Staphylococcus Aureus 12/23/20 Blood Culture - Final, Complete NO GROWTH AFTER 5 DAYS 12/23/20 Respiratory Virus Panel (PCR) (CHIDI) - Final, Complete 12/23/20 Urine Culture - Final, Complete Staphylococcus Aureus 12/23/20 Blood Culture - Final, Complete Staphylococcus Aureus AIDAN MEYERS MD Dec 31, 2020 10:18
--- NOTE | 2020-12-31 10:29 | IPNPDOC ---
Subjective Review oF Systems Chief Complaint The patient is a 50-year-old male admitted with a reason for visit of Dka (Diabetic Ketocidoses). Events since Last Encounter Patient has developed some pulmonary nodules consistent with septic emboli. CT scan also showed that he had a prostate abscess and some dilation of the right renal pelvis and proximal ureter General: Reports: Fatigue, Malaise Constitutional: Denies: Fever, Chills, Sweats, Weakness, Malaise Eyes: Denies: Pain, Vision change Genitourinary: Denies: Dysuria, Frequency, Incontinence, Hematuria Musculoskeletal: Denies: Neck Pain, Back Pain Neurological: Denies: Weakness, Numbness, Incoordination, Change in Speech Objective Physical Examination General Exam: Alert, No Acute Distress; No: Cooperative, Mild Distress, Moderate Distress, Severe Distress, Other Eye Exam: PERRLA, Conjunctiva & lids normal, EOMI; No: Sclera icteric ENT EXAM: Atraumatic, Mucous membr. moist/pink, Pharynx Normal Neck Exam: Supple; No: JVD, thyromegaly Chest Exam: Clear to auscultation, Normal air movement Heart Exam: Positive: Rate Normal, Regular Rhythm, Normal S1, Normal S2; Negative: Murmurs, Rubs ABDOMEN EXAM: Normal bowel sounds, Soft; No: Tenderness, Hepatospenomegaly Male Exam: Normal Genital Exam Vital Signs/I&O Vital Signs Date Time Temp Pulse Resp B/P (MAP) Pulse Ox O2 Delivery O2 Flow Rate FiO2 12/31/20 08:42 104 138/72 12/31/20 06:00 98.2 20 91 Nasal Cannula 2.0 I&O- Last 24 Hours up to 6 AM 12/31/20 06:00 Intake Total 3600 ml Output Total 4400 ml Balance -800 ml Laboratory Data Labs 24H Laboratory Tests 2 12/30/20 11:49: Bedside Glucose (Misc Panel) 284H 12/30/20 16:27: Bedside Glucose (Misc Panel) 355H 12/30/20 20:20: Bedside Glucose (Misc Panel) 316H 12/31/20 05:46: Immature Granulocyte % (Auto) 1.2, Neutrophils (%) (Auto) 78.4H, Lymphocytes (%) (Auto) 12.7L, Monocytes (%) (Auto) 6.7, Eosinophils (%) (Auto) 0.8, Basophils (%) (Auto) 0.2, Neutrophils # (Auto) 16.7H, Lymphocytes # (Auto) 2.7, Monocytes # (Auto) 1.4H, Eosinophils # (Auto) 0.2, Basophils # (Auto) 0.1, Nucleated Red Blood Cells % (auto) 0.0, Anion Gap 6L, Glomerular Filtration Rate 52.0L, Calcium Level 7.9L CBC/BMP Laboratory Tests 12/31/20 05:46 FSBS Laboratory Tests Test 12/30/20 11:49 12/30/20 16:27 12/30/20 20:20 Range/Units Bedside Glucose (Misc Panel) 284 355 316 70-105 MG/DL Microbiology Microbiology 12/31/20 Blood Culture, Received Pending 12/30/20 Blood Culture - Preliminary, Resulted No growth after 24 hours . All specim... 12/28/20 Blood Culture - Final, Complete Staphylococcus Aureus 12/27/20 Blood Culture - Preliminary, Resulted No Growth after 72 hours. All specime... 12/24/20 Blood Culture - Final, Complete Staphylococcus Aureus 12/24/20 Blood Culture - Final, Complete Staphylococcus Aureus 12/23/20 Blood Culture - Final, Complete NO GROWTH AFTER 5 DAYS 12/23/20 Respiratory Virus Panel (PCR) (CHIDI) - Final, Complete 12/23/20 Urine Culture - Final, Complete Staphylococcus Aureus 12/23/20 Blood Culture - Final, Complete Staphylococcus Aureus Assessment/Plan Date Seen The patient was seen on 12/31/20. Problems (1) DKA (diabetic ketoacidoses) Status: Acute (2) Sepsis Status: Acute (3) Cellulitis Status: Acute (4) Acute renal failure Status: Acute (5) Leg ulcer, left Status: Acute Plan/VTE VTE Prophylaxis Ordered?: Yes Plan Recent imaging shows the patient has a abscess on the left side. He also has what appears to me to be some hydronephrosis on the right side and impression of left kidney with his indwelling stent. As he is also developed what appears to be septic emboli, the patient will need a TUR prostate to unroofed the prostate abscess so recommend inserting a right ureteral stent as well. SHAKIR SANTANA MD Dec 31, 2020 10:29
[2020-12-31] MEDS: ACETAMINOPHEN 500 MG TAB PO PRN (10:46)
[2020-12-31] MEDS: NS 1,000 ML IV SCH ×2 (10:46→20:59)
[2020-12-31] MEDS ORDERED: propofoL 200 MG/20 ML VIAL As Ordered ONE ×2 (15:38→15:39)
[2020-12-31] MEDS ORDERED: LIDOCAINE 2% 100MG/5ML SDV (FOR ANES.) As Ordered ONE (15:39)
[2020-12-31] MEDS ORDERED: fentaNYL 100 MCG/2 ML INJECTION (J3010) As Ordered ONE ×2 (15:40→16:46)
[2020-12-31] MEDS ORDERED: MIDAZOLAM INJ 2MG/2ML VIAL (J2250 PER 1MG) As Ordered ONE (15:40)
--- NOTE | 2020-12-31 15:49 | IPN ---
PROGRESS NOTE DATE: 12/31/2020 SUBJECTIVE: Bernardo was sitting in his chair trying to get up on his own, he did not have any strength, and he was sliding off of chair. With my help and the nurse, we were able to get him up. He walked to the bathroom to have a bowel movement. He denied any pain. No back or flank pain. No dysuria or hematuria. He has a Richmond catheter. He has mild shortness of breath, but no cough. He had a CT chest and abdomen/ pelvis that were consistent with a prostate abscess, as well as multiple septic emboli in the lungs with cavitations. OBJECTIVE: VITAL SIGNS: Temperature 97.9, pulse 74, respirations 19, blood pressure 154/85, O2 sat 96% on 2 liters nasal cannula. T-max yesterday was 100.4. HEART: Normal S1, S2. Tachycardic. No murmurs appreciated. LUNGS: Fine crackles at the bases. No rhonchi or wheezing. ABDOMEN: Soft, obese, and nontender with no hepatosplenomegaly. BACK: No CVA tenderness. EXTREMITIES: Trace edema bilaterally, as well as some pitting edema of both hands. No clubbing or cyanosis. SKIN: Left leg ulcer measuring 2 x 4 cm superficial with no surrounding cellulitis, erythema, or purulence. NEUROLOGIC: Alert and oriented x3. LABORATORY DATA: White count 21.3, which has continued to worsen. Hemoglobin 9.7, hematocrit 31.2, platelets 392,000. Neutrophils 78%, lymphocytes 13%, and monocytes 7%. Sodium 141, potassium 4.1, chloride 112, bicarb 23, BUN 26, creatinine 1.53, glucose 145, calcium 7.9. CRP 20.1. Blood cultures from 12/23 to 12/28 are positive for MSSA. On 12/30 one set of blood cultures no growth after 24 hours and 12/31 is pending. IMAGING DATA: Chest CT showed multiple pulmonary parenchymal changes consistent with multifocal septic emboli and cavitation, especially the right upper lobe lesion measuring 3 cm with a large central cavitation. There are multiple other innumerable bilateral rounded pulmonary nodules as well. CT abdomen showed a left-sided prostate abscess extending to the tissue between the posterior border of the prostate and the adjacent rectum on the left side. A left ureteral stent with improved left-sided hydronephrosis and swollen left kidney. IMPRESSION: 1. Complicated Staphylococcus aureus sepsis from prostatic abscess with secondary septic emboli to the lung and prolonged bacteremia on IV cefazolin 2 grams IV q. 8 hours. The patient has been followed up by Dr. Saleh who recommended a transurethral resection of the prostate (TURP) to unroof the prostate abscess and a right ureteral stent as well. Negative CONCEPCION 2. Cavitary pulmonary infection from methicillin-sensitive Staphylococcus aureus (MSSA) on IV cefazolin from metastatic complications of bacteremia. 3. Bilateral hydronephrosis requiring stent now on Rt with prostate abscess on cefazolin needs drainage 4. Insulin-dependent diabetes poorly controlled with sugars running between 229 and 355. PLAN: Dose of cefazolin was increased to 2 grams IV q. 8 hours. The patient will need at least four - six weeks of IV antibiotics from negative cultures, which would be hopefully 12/30. His minimum end of therapy would be 01/27 and possibly longer. If his repeat blood culture is negative, the patient could have a peripherally inserted central catheter (PICC) line placed as he is running out of IV access. The case has been discussed with Jo Funes and she has reconsulted urology for evaluation of prostate abscess and patient will be going to OR for TURP and Right stent MTDD
[2020-12-31] MEDS ORDERED: ceFAZolin 2 GM/D5W 50 ML IV BAG (J0690 PER 500MG) As Ordered ONE (16:15)
[2020-12-31] MEDS ORDERED: CONRAY-60 60% 50ML VIAL (Q9961) As Ordered ONE (16:15)
[2020-12-31] MEDS ORDERED: KETOROLAC 30 MG/ML 1ML VIAL IV PRN (17:00)
[2020-12-31] MEDS ORDERED: ONDANSETRON 4MG/2ML VIAL As Ordered ONE (17:03)
[2020-12-31] MEDS ORDERED: KETOROLAC 60MG 2ML VIAL As Ordered ONE (17:03)
--- NOTE | 2020-12-31 17:04 | REP ---
INDICATION: RIGHT STENT PLACEMENT. COMPARISON: None. TECHNIQUE: A single view. Is 19 seconds of fluoroscopy time is reported. FINDINGS: A single last image hold fluoroscopically obtained spot radiograph of the upper abdomen documents double-pigtail ureteral stent placement bilaterally. Hydronephrosis and contrast injection on the right are documented. IMPRESSION: Procedural imaging. <Electronically signed by Ricardo Ann > 12/31/20 0294
--- NOTE | 2020-12-31 17:30 | ROOPDOC ---
[facility] Report Of Operation Report of Operation DATE OF PROCEDURE: 12/31/20 PREPROCEDURE DIAGNOSES: Prostate abscess, right hydronephrosis POSTPROCEDURE DIAGNOSES: Same PROCEDURE: cystoscopy, right retrograde, right ureteral stent placement, TURP prostate abscess and x-ray interpretation with fluoroscopy SURGEON: Eder Saleh MD CDL B DRIVER: None ANESTHESIA: general ESTIMATED BLOOD LOSS: Approximately Less than 5 mL. COMPLICATIONS: None REMARKS: Large prostate abscess on left side posterior prostate PROCEDURE NOTE: Patient is brought to the operating room for TURP to unroofed a large prostate abscess as a right ureteral stent for new onset hydronephrosis DESCRIPTION OF PROCEDURE: The patient was placed on the table in supine position, given general anesthesia, placed in lithotomy position, prepped with Betadine paint, draped in an aseptic manner and timeout was performed. A #26 Niuean cystoscope was inserted into the meatus after dilating with Inna sounds to 28 Niuean. The cystoscope was then advanced under direct vision of a 30 lens to the bladder. The prostatic urethra appeared normal. In the bladder, the patient continued to have some trigonal edema. The right ureteral orifice was identified, catheterized with a 5 Niuean [place] cath and a retrograde injection of Conray showed the patient had significant right hydronephrosis with dilation of the proximal ureter. The wire guide was then passed up to the renal pelvis and a 6 Niuean double-J stent was passed over this wire. It curled well in the renal pelvis and in the bladder when the wire was removed. The loop element was then used to resect the left side of the prostate. A large abscess cavity was opened, unroofed and drained. Hemostasis was achieved with c auterization. The chips were then irrigated out of the bladder and the resectoscope was removed. He was then catheterized with a 24 Niuean 3-way Richmond catheter over a wire guide. The balloon was then filled with 30 mL and connected to closed drainage and continuous bladder irrigation. The patient was then awakened and sent to recovery room in stable condition having tolerated procedure well. Fluoroscopy and x-ray interpretation was used to perform the retrograde pyelogram and place the ureteral stent. EDER SALEH MD Dec 31, 2020 17:30
[2020-12-31] MEDS ORDERED: ONDANSETRON 4MG/2ML VIAL IV PRN (17:40)
[2020-12-31] MEDS ORDERED: fentaNYL 100 MCG/2 ML INJECTION (J3010) IV PRN (17:40)
[2020-12-31] MEDS ORDERED: oxyCODONE 5MG TAB PO PRN (17:40)
[2020-12-31] MEDS ORDERED: LR 1,000 ML IV SCH (17:40)
[2021-01-01] VITALS (7 sets, daily range): BP systolic 130–210; BP diastolic 58–110
[2021-01-01] MEDS: **hydrALAZINE HCL** 25 MG TAB PO SCH ×5 (01:00→23:07)
[2021-01-01] MEDS: ceFAZolin SOD 2 GM in IV 1 EA IV SCH ×3 (01:29→17:21)
[2021-01-01] MEDS: ACETAMINOPHEN 500 MG TAB PO PRN ×3 (02:05→21:36)
[2021-01-01 06:17] LABS: BASO % 0.2 % (0.0-1.0); EOS # 0.2 10^3/uL (0.0-0.5); EOS % 1.1 % (0.0-3.0); HEMATOCRIT 27.5 % (42.0-52.0); HEMOGLOBIN 8.3 g/dl (13.5-17.5); LYMPH # 2.3 10^3/uL (1.5-5.0); LYMPH % 12.4 % (24.0-44.0); MEAN CORPUSCULAR HEMOGLOBIN 27.6 pg (27.0-33.0); MEAN CORPUSCULAR HGB CONC 30.2 g/dl (32.0-36.5); MEAN CORPUSCULAR VOLUME 91.4 fl (80.0-96.0); MONO % 5.4 % (2.0-8.0); NEUTROPHILS # 14.5 10^3/uL (1.5-8.5); NEUTROPHILS % 79.9 % (36.0-66.0); PLATELET COUNT, AUTOMATED 378 10^3/uL (150-450); RED BLOOD COUNT 3.01 10^6/uL (4.30-6.10); WHITE BLOOD COUNT 18.1 10^3/uL (4.0-10.0)
[2021-01-01 06:34] LABS: CALCIUM LEVEL 7.3 MG/DL (8.5-10.1); CREATININE FOR GFR 1.58 MG/DL (0.70-1.30); GLOMERULAR FILTRATION RATE 50.1 (>60); POTASSIUM SERUM 4.4 MEQ/L (3.5-5.1)
[2021-01-01] MEDS: NS 1,000 ML IV SCH (07:40)
[2021-01-01] MEDS: CLOPIDOGREL 75 MG TAB PO SCH (08:57)
[2021-01-01] MEDS: METOPROLOL TART 25 MG TABLET PO SCH ×2 (08:57→21:34)
[2021-01-01] MEDS: PANTOPRAZOLE 40MG TAB (PROTONIX) PO SCH (08:57)
[2021-01-01] MEDS: ATORVASTATIN 20 MG TAB PO SCH (08:59)
[2021-01-01] MEDS: LEVEMIR (INSULIN DETEMIR) 1 UNITS/0.01ML SC SCH ×2 (09:00→21:35)
[2021-01-01] MEDS: SENOKOT S TAB PO SCH ×3 (09:00→21:34)
[2021-01-01] MEDS: HumaLOG INSULIN (NovoLOG) PER UNIT SC SCH ×4 (09:27→21:35)
[2021-01-01] MEDS: SANTYL OINT 30GM TOP SCH (09:28)
--- NOTE | 2021-01-01 13:00 | IPNPDOC ---
Subjective Date Seen The patient was seen on 01/01/21. Subjective Chief Complaint/HPI Continues to be febrile overnight with t max of 100.5. He has cystoscopy with right ureteral stent placement for new right hydronephrosis and TURP and drainage of a left left sided prostate abscess last evening. Has CBI running mostly clear Objective Physical Examination General Exam: Positive: Alert, Cooperative, No Acute Distress Eye Exam: Positive: Conjunctiva & lids normal, EOMI ENT Exam: Positive: Atraumatic, Mucous membr. moist/pink, Pharynx Normal Neck Exam: Positive: Supple; Negative: JVD Chest Exam: Positive: Normal air movement, Other (bibasal crackles. ); Negative: Rhonchi, Wheezing Heart Exam: Positive: Rate Normal, Regular Rhythm, Normal S1, Normal S2; Negative: Murmurs, Rubs Telemetry: Positive: No significant arrhythmia Abdomen Exam: Positive: Normal bowel sounds, Soft; Negative: Tenderness, Hepatospenomegaly Extremity Exam: Positive: Edema (trace bipedal edema, and also in both hands); Negative: Clubbing, Cyanosis Skin Exam: Positive: Breakdown (left distal leg wound stage II ulcer 2cm X4 cm) Neuro Exam: Positive: Normal Speech, Strength at 5/5 X4 ext, Normal Tone Psych Exam: Positive: Memory Intact, Oriented x 3 Assessment /Plan Assessment Patient is 50 years old male with past history of coronary artery diseases, CABG, diabetes mellitus on insulin Lantus 50 units twice a day, hyperlipidemia presented to the hospital with lethargy and altered mental status. Patient was somnolent on admission and couldn't provide detailed history. According to the ER physician, patient was found on the street by EMS. Patient stated that he ran out of his diabetes medication for one week. He moved to [place] from [place] recently and doesn't have PCP. In ER patient was found to have white blood count of 31.4, hemoglobin 15.9, glucose level 1037, creatinine 2.6, potassium 5.6, blood osmolarity 375, lipase level 449. Head CT negative. Chest x-ray negative for acute infiltrate. Patient was admitted for DKA, sepsis. Complaining of right shoulder pain will get MRI of right shoulder. Prostate abscess S/p cystoscopy, right retrograde pyelogram, right ureteral stent placement, TURP prostate abscess on 12/31/20 On CBI Bilateral hydronephrosis and hydroureter due to prostate abscess and trigonal inflammation Had cysto with left ureteral stent placement on 12/25/20. Cysto showed severe inflammation of the trigone causing occlusion of the left ureteral orifice. Again had cystoscopy, right retrograde pyelogram, right ureteral stent placement, TURP prostate abscess on 12/31/20 Now with left ureteral double J stent placed on 12/25/20 and right stent placement on 12/31/20 On CBI. Will have to go home with catheter. Sepsis with MSSA bacteremia, septic emboli, pyelonephritis, likely source urinary tract / prostate abscess blood culture and urine culture MSSA . Negative starting 12/30/20 changed to Cefazolin from nafcillin to preserve veins. Echo done EF of 50% to 55%. LVH and grade 1 diastolic dysfunction. CONCEPCION no vegetations. EF of 65%, lipomatous hypertrophy of the atrial septum no RWMA. patient will need 4 weeks of antibiotics will place a picc line once blood cultures are negative. DKA on admission sugar > 1000 Secondary to running out of insulin and sepsis. now resolved Carb consistent diet and Fs AC and HS. Levemir and lispro Acute renal failure Most likely secondary to dehydration due to DKA and obstructive uropathy creatinine from aug 10.7 so patient may have underlying CKD also. Now improving. Stage II ulcer on the left lateral supramalleolar region does not look infected. Appreciate/agree with wound care consult Hypernatremia resolved Coronary artery diseases Status post CABG in 2014. Continue atorvastatin, clopidogrel, metoprolol Elevated troponin On 12/24/20 troponin was elevated to 0.04 Patient denied any chest pain EKG negative for ischemic changes Troponin trended down likely due to sepsis and deandre, dka. HLD continue statin Hypertension will stop lisinopril for now as has DEANDRE amlodipine and metoprolol. Plan/VTE VTE Prophylaxis Ordered?: Yes VS, I&O, 24H, Fishbone Vital Signs/I&O Vital Signs Date Time Temp Pulse Resp B/P (MAP) Pulse Ox O2 Delivery O2 Flow Rate FiO2 01/01/21 06:00 99.8 91 18 130/78 (95) 90 Nasal Cannula 3.0 I&O- Last 24 Hours up to 6 AM 01/01/21 06:00 Intake Total 2390 ml Output Total 1125 ml Balance 1265 ml Laboratory Data 24H LABS Laboratory Tests 2 12/31/20 11:04: Coronavirus (COVID-19)(PCR) NEGATIVE 12/31/20 11:52: Bedside Glucose (Misc Panel) 164H 12/31/20 18:36: Bedside Glucose (Misc Panel) 107H 12/31/20 19:27: Bedside Glucose (Misc Panel) 108H 01/01/21 05:37: Immature Granulocyte % (Auto) 1.0, Neutrophils (%) (Auto) 79.9H, Lymphocytes (%) (Auto) 12.4L, Monocytes (%) (Auto) 5.4, Eosinophils (%) (Auto) 1.1, Basophils (%) (Auto) 0.2, Neutrophils # (Auto) 14.5H, Lymphocytes # (Auto) 2.3, Monocytes # (Auto) 1.0H, Eosinophils # (Auto) 0.2, Basophils # (Auto) 0.0, Nucleated Red Blood Cells % (auto) 0.0, Anion Gap 7L, Glomerular Filtration Rate 50.1L, Calcium Level 7.3L CBC/BMP Laboratory Tests 01/01/21 05:37 Microbiology Microbiology 01/01/21 Blood Culture, Received Pending 12/31/20 Blood Culture - Preliminary, Resulted No growth after 24 hours . All specim... 12/30/20 Blood Culture - Preliminary, Resulted No Growth after 48 hours. All Specime... 12/28/20 Blood Culture - Final, Complete Staphylococcus Aureus 12/27/20 Blood Culture - Preliminary, Resulted No Growth after 72 hours. All specime... 12/24/20 Blood Culture - Final, Complete Staphylococcus Aureus 12/24/20 Blood Culture - Final, Complete Staphylococcus Aureus 12/23/20 Blood Culture - Final, Complete NO GROWTH AFTER 5 DAYS 12/23/20 Respiratory Virus Panel (PCR) (CHIDI) - Final, Complete 12/23/20 Urine Culture - Final, Complete Staphylococcus Aureus 12/23/20 Blood Culture - Final, Complete Staphylococcus Aureus AIDAN MEYERS MD Jan 01, 2021 08:43
--- NOTE | 2021-01-01 13:54 | IPNPDOC ---
Subjective Review oF Systems Chief Complaint The patient is a 50-year-old male admitted with a reason for visit of Dka (Diabetic Ketocidoses). Events since Last Encounter Patient is feeling much better since the prostate abscess was drained and a right ureteral stent was inserted. Urine today is pink color on CBI. General: Reports: Normal Appetite; Denies: Fatigue, Malaise Constitutional: Denies: Fever, Chills, Sweats, Weakness, Malaise Eyes: Denies: Pain, Vision change ENT: Denies: Head Aches, Sore Throat, Epistaxis Skin: Denies: Rash, Lesions, Breakdown, Nail Changes Pulmonary: Denies: Dyspnea, Cough Cardiovascular: Denies Chest Pain, Denies Palpitations Gastrointestinal: Denies: Nausea, Vomiting, Abdominal Pain Genitourinary: Denies: Dysuria, Frequency, Incontinence, Hematuria Musculoskeletal: Denies: Neck Pain, Back Pain Objective Physical Examination General Exam: Alert, No Acute Distress; No: Cooperative, Mild Distress, Moderate Distress, Severe Distress, Other Eye Exam: PERRLA, Conjunctiva & lids normal, EOMI; No: Sclera icteric ENT EXAM: Atraumatic, Mucous membr. moist/pink, Pharynx Normal Neck Exam: Supple; No: JVD, thyromegaly Chest Exam: Clear to auscultation, Normal air movement Heart Exam: Positive: Rate Normal, Regular Rhythm, Normal S1, Normal S2; Negative: Murmurs, Rubs ABDOMEN EXAM: Normal bowel sounds, Soft; No: Tenderness, Hepatospenomegaly Male Exam: Normal Genital Exam Extremity Exam: Tenderness; No: Clubbing, Cyanosis, Edema Vital Signs/I&O Vital Signs Date Time Temp Pulse Resp B/P (MAP) Pulse Ox O2 Delivery O2 Flow Rate FiO2 01/01/21 12:45 161/93 01/01/21 10:00 99.7 90 18 90 Nasal Cannula 3.0 I&O- Last 24 Hours up to 6 AM 01/01/21 06:00 Intake Total 2390 ml Output Total 1125 ml Balance 1265 ml Laboratory Data Labs 24H Laboratory Tests 2 12/31/20 18:36: Bedside Glucose (Misc Panel) 107H 12/31/20 19:27: Bedside Glucose (Misc Panel) 108H 01/01/21 05:37: Immature Granulocyte % (Auto) 1.0, Neutrophils (%) (Auto) 79.9H, Lymphocytes (%) (Auto) 12.4L, Monocytes (%) (Auto) 5.4, Eosinophils (%) (Auto) 1.1, Basophils (%) (Auto) 0.2, Neutrophils # (Auto) 14.5H, Lymphocytes # (Auto) 2.3, Monocytes # (Auto) 1.0H, Eosinophils # (Auto) 0.2, Basophils # (Auto) 0.0, Nucleated Red Blood Cells % (auto) 0.0, Anion Gap 7L, Glomerular Filtration Rate 50.1L, Calcium Level 7.3L 01/01/21 11:40: Bedside Glucose (Misc Panel) 302H CBC/BMP Laboratory Tests 01/01/21 05:37 FSBS Laboratory Tests Test 12/31/20 18:36 12/31/20 19:27 01/01/21 11:40 Range/Units Bedside Glucose (Misc Panel) 107 108 302 70-105 MG/DL Microbiology Microbiology 01/01/21 Blood Culture, Received Pending 12/31/20 Blood Culture - Preliminary, Resulted No growth after 24 hours . All specim... 12/30/20 Blood Culture - Preliminary, Resulted No Growth after 48 hours. All Specime... 12/28/20 Blood Culture - Final, Complete Staphylococcus Aureus 12/27/20 Blood Culture - Preliminary, Resulted No Growth after 72 hours. All specime... 12/24/20 Blood Culture - Final, Complete Staphylococcus Aureus 12/24/20 Blood Culture - Final, Complete Staphylococcus Aureus 12/23/20 Blood Culture - Final, Complete NO GROWTH AFTER 5 DAYS 12/23/20 Respiratory Virus Panel (PCR) (CH[facility]I) - Final, Complete 12/23/20 Urine Culture - Final, Complete Staphylococcus Aureus 12/23/20 Blood Culture - Final, Complete Staphylococcus Aureus Assessment/Plan Date Seen The patient was seen on 01/01/21. Patient Summary Patient is improving with drainage of the prostate abscess and insertion of right ureteral stent. White cell count is beginning to drop and the patient clinically better and states he feels significantly improved. Problems (1) DKA (diabetic ketoacidoses) Status: Acute (2) Sepsis Status: Acute (3) Cellulitis Status: Acute (4) Acute renal failure Status: Acute (5) Leg ulcer, left Status: Acute Plan/VTE VTE Prophylaxis Ordered?: Yes SHAKIR SANTANA MD Jan 01, 2021 13:54
--- NOTE | 2021-01-01 15:27 | REPVR ---
PROCEDURE INFORMATION: Exam: MR Right Upper Extremity Joint Without Contrast; Shoulder Exam date and time: 01/01/2021 11:17 AM Age: 50 years old Clinical indication: Shoulder; Right; Patient HX: Dka, pain; Additional info: Shoulder pain with staph bacterimia TECHNIQUE: Imaging protocol: MR of the Right upper extremity without contrast. Exam focused on the shoulder. COMPARISON: No relevant prior studies available. FINDINGS: Limitations: No correlative radiographs. Bones and cartilage: There is very mild acromioclavicular arthrosis. A small effusion involves the acromioclavicular joint. There is mild glenohumeral chondromalacia. Mild productive changes are present along the greater tuberosity, with mild degenerative cystic changes posteriorly. Joint spaces: Fluid in the glenohumeral joint is within physiologic limits. Glenoid labrum: Mild increased signal in the superior glenoid labrum posteriorly could be degenerative or related to tear. Bursae: There is edema without discrete fluid in the subacromial, subdeltoid bursa. Supraspinatus tendon: Mild supraspinatus tendinopathy with a tiny partial-thickness tear at the footplate. Infraspinatus tendon: Mild infraspinatus tendinopathy. Subscapularis tendon: Unremarkable. No evidence of tear. Teres minor tendon: Unremarkable. No evidence of tear. Tendon of biceps brachii: Intact and in normal position. Glenohumeral ligaments: Unremarkable. Muscles: Moderate edema involves the anterior aspect of the deltoid muscle superiorly. Edema is also partially visualized medially in the supraspinatus muscle. Soft tissues: Partially visualized is subcutaneous edema, generally moderate, over much of the posterior and superior aspects of the shoulder, with extension medially over the anterior chest. In the deeper soft tissues just anterior to the distal clavicle, proximal to the acromioclavicular joint, is a collection measuring 9 x 9 x 12 mm (images 701:23, 601:9), which could represent an abscess in the setting of infection, or hematoma/seroma in the setting of trauma. IMPRESSION: 1. Degenerative changes as described. 2. Mild rotator cuff tendinopathy. 3. Partially visualized, generally moderate subcutaneous edema over much of the posterior and superior aspects of the shoulder, with extension medially over the anterior chest, and with moderate edema in the anterior aspect of the deltoid muscle superiorly and partially visualized medially in the supraspinatus muscle. Findings could be posttraumatic or related to infection, potentially with myositis. May consider imaging more medially to evaluate full extent. 4. Small fluid intensity signal focus in the deep soft tissues just anterior to the distal clavicle, could represent abscess in the setting of infection or hematoma/seroma in the setting of trauma. 5. Small effusion of the acromioclavicular joint, could be degenerative or infectious/inflammatory. 6. Mild increased signal in the superior glenoid labrum posteriorly, could be degenerative or related to tear. Electronically signed by: Edgadr Gonzales On 01/01/2021 15:27:36 PM
--- NOTE | 2021-01-01 23:40 | REPVR ---
PROCEDURE INFORMATION: Exam: XR Right Shoulder Exam date and time: 01/01/2021 10:12 PM Age: 50 years old Clinical indication: Pain; Upper arm; Right; Additional info: Ortho eval, f/u mri results TECHNIQUE: Imaging protocol: XR Right shoulder. Views: 2 or more views. COMPARISON: MRI-Shoulder W/O CONTRAST RIGHT 01/01/2021 10:35 AM FINDINGS: Bones/joints: There is no fracture, dislocation, or bony destructive changes involving the right shoulder. The right glenohumeral alignment is maintained. There are mild degenerative changes involving the right acromioclavicular joint and right glenohumeral joint. No calcific densities are seen in the right rotator cuff or right subacromial subdeltoid bursa. Soft tissues: There is edema in the subcutaneous tissues in the right supraclavicular region. No soft tissue gas is identified. IMPRESSION: 1. Edema in the subcutaneous tissues in the right supraclavicular region. 2. No fracture, dislocation, or bony destructive changes involving the right shoulder. 3. 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 Electronically signed by: Maximo Gregorio On 01/01/2021 23:39:29 PM
[2021-01-02] VITALS (9 sets, daily range): BP systolic 132–188; BP diastolic 54–98
[2021-01-02] MEDS: LEVALBUTEROL 1.25 MG/0.5 ML CONCENTRATE NEB INH PRN (00:55)
[2021-01-02] MEDS: ceFAZolin SOD 2 GM in IV 1 EA IV SCH ×3 (02:23→17:31)
[2021-01-02] MEDS ORDERED: CHLORTHALIDONE 12.5MG PER 1/2 TABLET PO ONE (02:45)
[2021-01-02] MEDS: **hydrALAZINE HCL** 25 MG TAB PO SCH ×4 (06:39→23:32)
[2021-01-02 07:05] LABS: BASO # 0.1 10^3/uL (0.0-0.2); BASO % 0.3 % (0.0-1.0); EOS # 0.2 10^3/uL (0.0-0.5); EOS % 0.8 % (0.0-3.0); HEMATOCRIT 29.1 % (42.0-52.0); LYMPH # 2.3 10^3/uL (1.5-5.0); LYMPH % 12.4 % (24.0-44.0); MEAN CORPUSCULAR HEMOGLOBIN 28.1 pg (27.0-33.0); MEAN CORPUSCULAR HGB CONC 30.9 g/dl (32.0-36.5); MEAN CORPUSCULAR VOLUME 90.9 fl (80.0-96.0); MONO # 1.1 10^3/uL (0.0-0.8); NEUTROPHILS % 79.4 % (36.0-66.0); PLATELET COUNT, AUTOMATED 446 10^3/uL (150-450); WHITE BLOOD COUNT 18.9 10^3/uL (4.0-10.0)
[2021-01-02] MEDS ORDERED: FUROSEMIDE 100MG/10ML VIAL (J1940) IV ONE (07:15)
[2021-01-02 07:26] LABS: CALCIUM LEVEL 7.9 MG/DL (8.5-10.1); CREATININE FOR GFR 1.51 MG/DL (0.70-1.30); GLOMERULAR FILTRATION RATE 52.8 (>60); POTASSIUM SERUM 4.4 MEQ/L (3.5-5.1)
[2021-01-02 07:59] LABS: C REACTIVE PROTEIN QUANTITATIV 14.1 MG/DL (0.00-0.30)
[2021-01-02] MEDS ORDERED: FUROSEMIDE 40MG/4ML VIAL (J1940) IV ONE (08:00)
[2021-01-02] MEDS: ATORVASTATIN 20 MG TAB PO SCH (08:09)
[2021-01-02] MEDS: PANTOPRAZOLE 40MG TAB (PROTONIX) PO SCH (08:09)
[2021-01-02] MEDS: HumaLOG INSULIN (NovoLOG) PER UNIT SC SCH ×4 (08:09→21:17)
[2021-01-02] MEDS: CLOPIDOGREL 75 MG TAB PO SCH (08:09)
[2021-01-02] MEDS: METOPROLOL TART 25 MG TABLET PO SCH ×2 (08:10→21:16)
[2021-01-02] MEDS: LEVEMIR (INSULIN DETEMIR) 1 UNITS/0.01ML SC SCH ×2 (08:10→21:17)
[2021-01-02] MEDS: SENOKOT S TAB PO SCH ×2 (08:10→21:00)
[2021-01-02] MEDS: SANTYL OINT 30GM TOP SCH (08:11)
[2021-01-02] MEDS: PERCOCET 5MG/325MG TAB PO PRN ×3 (09:09→23:40)
--- NOTE | 2021-01-02 11:23 | IPNPDOC ---
Subjective Review oF Systems Chief Complaint The patient is a 50-year-old male admitted with a reason for visit of Dka (Diabetic Ketocidoses). General: Reports: Normal Appetite; Denies: Fatigue, Malaise Constitutional: Denies: Fever, Chills, Sweats, Weakness, Malaise Eyes: Denies: Pain, Vision change ENT: Denies: Head Aches, Sore Throat, Epistaxis Skin: Denies: Rash, Lesions, Breakdown, Nail Changes Pulmonary: Denies: Dyspnea, Cough Gastrointestinal: Denies: Nausea, Vomiting, Abdominal Pain Genitourinary: Denies: Dysuria, Frequency, Incontinence, Hematuria Objective Physical Examination General Exam: Alert, No Acute Distress; No: Cooperative, Mild Distress, Moderate Distress, Severe Distress, Other Eye Exam: PERRLA, Conjunctiva & lids normal, EOMI; No: Sclera icteric ENT EXAM: Atraumatic, Mucous membr. moist/pink, Pharynx Normal Neck Exam: Supple; No: JVD, thyromegaly Chest Exam: Clear to auscultation, Normal air movement Heart Exam: Positive: Rate Normal, Regular Rhythm, Normal S1, Normal S2; Negative: Murmurs, Rubs ABDOMEN EXAM: Normal bowel sounds, Soft; No: Tenderness, Hepatospenomegaly Male Exam: Normal Genital Exam Extremity Exam: Tenderness; No: Clubbing, Cyanosis, Edema Vital Signs/I&O Vital Signs Date Time Temp Pulse Resp B/P (MAP) Pulse Ox O2 Delivery O2 Flow Rate FiO2 01/02/21 10:00 99.9 92 19 156/54 (88) 92 Nasal Cannula 3.0 I&O- Last 24 Hours up to 6 AM 01/02/21 06:00 Intake Total 2260 ml Output Total 2875 ml Balance -615 ml Laboratory Data Labs 24H Laboratory Tests 2 01/01/21 11:40: Bedside Glucose (Misc Panel) 302H 01/01/21 16:55: Bedside Glucose (Misc Panel) 232H 01/01/21 20:32: Bedside Glucose (Misc Panel) 305H 01/02/21 06:16: Immature Granulocyte % (Auto) 1.1, Neutrophils (%) (Auto) 79.4H, Lymphocytes (%) (Auto) 12.4L, Monocytes (%) (Auto) 6.0, Eosinophils (%) (Auto) 0.8, Basophils ( %) (Auto) 0.3, Neutrophils # (Auto) 15.0H, Lymphocytes # (Auto) 2.3, Monocytes # (Auto) 1.1H, Eosinophils # (Auto) 0.2, Basophils # (Auto) 0.1, Nucleated Red Blood Cells % (auto) 0.0, Anion Gap 5L, Glomerular Filtration Rate 52.8L, Calcium Level 7.9L, C-Reactive Protein, Quantitative 14.10H 01/02/21 11:19: Bedside Glucose (Misc Panel) 222H CBC/BMP Laboratory Tests 01/02/21 06:16 FSBS Laboratory Tests Test 01/01/21 11:40 01/01/21 16:55 01/01/21 20:32 01/02/21 11:19 Range/Units Bedside Glucose (Misc Panel) 302 232 305 222 70-105 MG/DL Microbiology Microbiology 01/01/21 Blood Culture - Preliminary, Resulted No growth after 24 hours . All specim... 12/31/20 Blood Culture - Preliminary, Resulted No Growth after 48 hours. All Specime... 12/30/20 Blood Culture - Preliminary, Resulted No Growth after 72 hours. All specime... 12/28/20 Blood Culture - Final, Complete Staphylococcus Aureus 12/27/20 Blood Culture - Final, Complete NO GROWTH AFTER 5 DAYS 12/24/20 Blood Culture - Final, Complete Staphylococcus Aureus 12/24/20 Blood Culture - Final, Complete Staphylococcus Aureus 12/23/20 Blood Culture - Final, Complete NO GROWTH AFTER 5 DAYS 12/23/20 Respiratory Virus Panel (PCR) (CHIDI) - Final, Complete 12/23/20 Urine Culture - Final, Complete Staphylococcus Aureus 12/23/20 Blood Culture - Final, Complete Staphylococcus Aureus Assessment/Plan Date Seen The patient was seen on 01/02/21. Patient Summary Temperature has come down to 99.9 but the patient's white cell count has gone up slightly to 18.9. His glomerular filtration rate is improved and 52.8 Problems (1) DKA (diabetic ketoacidoses) Status: Acute (2) Sepsis Status: Acute (3) Cellulitis Status: Acute (4) Acute renal failure Status: Acute (5) Leg ulcer, left Status: Acute Plan/VTE VTE Prophylaxis Ordered?: Yes Plan Continue current course of management with IV antibiotics. Ureteral stents can be removed in several weeks that the patient's current problems have resolved. SHAKIR SANTANA MD Jan 02, 2021 11:23
[2021-01-02] MEDS ORDERED: **hydrALAZINE HCL** 25 MG TAB PO SCH (12:00)
--- NOTE | 2021-01-02 12:40 | IPNPDOC ---
Subjective Date Seen The patient was seen on 01/02/21. Subjective Chief Complaint/HPI Continues to have severe right shoulder pain, which is actually acting driving up his blood pressure. He was seen by last night. I haven't seen any recommendations or any notes from them yet. . He had a shoulder MRI done yesterday and a shoulder x-ray which are going to be reviewed by orthopedics. Other than the pain he looks good. His appetite is good. The range of his fever is coming down Objective Physical Examination General Exam: Positive: Alert, Cooperative, No Acute Distress Eye Exam: Positive: Conjunctiva & lids normal, EOMI ENT Exam: Positive: Atraumatic, Mucous membr. moist/pink, Pharynx Normal Neck Exam: Positive: Supple; Negative: JVD Chest Exam: Positive: Normal air movement, Other (bibasal crackles. ); Negative: Rhonchi, Wheezing Heart Exam: Positive: Rate Normal, Regular Rhythm, Normal S1, Normal S2; Negative: Murmurs, Rubs Telemetry: Positive: No significant arrhythmia Abdomen Exam: Positive: Normal bowel sounds, Soft; Negative: Tenderness, Hepatospenomegaly Extremity Exam: Positive: Edema (trace bipedal edema, and also in both hands), Tenderness (right shoulder), Swelling (right shoulder); Negative: Clubbing, Cyanosis Skin Exam: Positive: Breakdown (left distal leg wound stage II ulcer 2cm X4 cm) Neuro Exam: Positive: Normal Speech, Strength at 5/5 X4 ext, Normal Tone Psych Exam: Positive: Memory Intact, Oriented x 3 Assessment /Plan Assessment Patient is 50 years old male with past history of coronary artery diseases, CABG, diabetes mellitus on insulin Lantus 50 units twice a day, hyperlipidemia presented to the hospital with lethargy and altered mental status. Patient was somnolent on admission and couldn't provide detailed history. According to the ER physician, patient was found on the street by EMS. Patient stated that he ran out of his diabetes medication for one week. He moved to [place] from [place] recently and doesn't have PCP. In ER patient was found to have white blood count of 31.4, hemoglobin 15.9, glucose level 1037, creatinine 2.6, pot assium 5.6, blood osmolarity 375, lipase level 449. Head CT negative. Chest x- ray negative for acute infiltrate. Patient was admitted for DKA, sepsis. Right shoulder pain MRI and xray of right shoulder noted discussed with Ortho electing their recommendation Started on Percocet for pain control Prostate abscess S/p cystoscopy, right retrograde pyelogram, right ureteral stent placement, TURP prostate abscess on 12/31/20 urology following Bilateral hydronephrosis and hydroureter due to prostate abscess and trigonal inflammation Had cysto with left ureteral stent placement on 12/25/20. Cysto showed severe inflammation of the trigone causing occlusion of the left ureteral orifice. Again had cystoscopy, right retrograde pyelogram, right ureteral stent placement, TURP prostate abscess on 12/31/20 Now with left ureteral double J stent placed on 12/25/20 and right stent placement on 12/31/20 Will need cath for about a week and follow up with urology on discharge to follow up about the stents. Sepsis with MSSA bacteremia, septic emboli, pyelonephritis, likely source urinary tract / prostate abscess blood culture and urine culture MSSA . Negative starting 12/30/20 changed to Cefazolin from nafcillin to preserve veins. Echo done EF of 50% to 55%. LVH and grade 1 diastolic dysfunction. CONCEPCION no vegetations. EF of 65%, lipomatous hypertrophy of the atrial septum no RWMA. patient will need 4 weeks of antibiotics will place a picc line once blood cultures are negative. DKA on admission sugar > 1000 Secondary to running out of insulin and sepsis. now resolved Carb consistent diet and Fs AC and HS. Levemir and lispro Acute renal failure Most likely secondary to dehydration due to DKA and obstructive uropathy creatinine from aug 1.7 so patient may have underlying CKD also. Now improving. Stage II ulcer on the left lateral supramalleolar region does not look infected. Appreciate/agree with wound care consult Hypernatremia resolved Coronary artery diseases Status post CABG in 2014. Continue atorvastatin, clopidogrel, metoprolol Elevated troponin On 12/24/20 troponin was elevated to 0.04 Patient denied any chest pain EKG negative for ischemic changes Troponin trended down likely due to sepsis and deandre, dka. HLD continue statin Hypertension will stop lisinopril for now as has DEANDRE amlodipine and metoprolol. Plan/VTE VTE Prophylaxis Ordered?: Yes VS, I&O, 24H, Fishbone Vital Signs/I&O Vital Signs Date Time Temp Pulse Resp B/P (MAP) Pulse Ox O2 Delivery O2 Flow Rate FiO2 01/02/21 12:00 129/83 01/02/21 10:00 99.9 92 19 92 Nasal Cannula 3.0 I&O- Last 24 Hours up to 6 AM 01/02/21 06:00 Intake Total 2260 ml Output Total 2875 ml Balance -615 ml Laboratory Data 24H LABS Laboratory Tests 2 01/01/21 16:55: Bedside Glucose (Misc Panel) 232H 01/01/21 20:32: Bedside Glucose (Misc Panel) 305H 01/02/21 06:16: Immature Granulocyte % (Auto) 1.1, Neutrophils (%) (Auto) 79.4H, Lymphocytes (%) (Auto) 12.4L, Monocytes (%) (Auto) 6.0, Eosinophils (%) (Auto) 0.8, Basophils (%) (Auto) 0.3, Neutrophils # (Auto) 15.0H, Lymphocytes # (Auto) 2.3, Monocytes # (Auto) 1.1H, Eosinophils # (Auto) 0.2, Basophils # (Auto) 0.1, Nucleated Red Blood Cells % (auto) 0.0, Anion Gap 5L, Glomerular Filtration Rate 52.8L, Calcium Level 7.9L, C-Reactive Protein, Quantitative 14.10H 01/02/21 11:19: Bedside Glucose (Misc Panel) 222H CBC/BMP Laboratory Tests 01/02/21 06:16 Microbiology Microbiology 01/01/21 Blood Culture - Preliminary, Resulted No growth after 24 hours . All specim... 12/31/20 Blood Culture - Preliminary, Resulted No Growth after 48 hours. All Specime... 12/30/20 Blood Culture - Preliminary, Resulted No Growth after 72 hours. All specime... 12/28/20 Blood Culture - Final, Complete Staphylococcus Aureus 12/27/20 Blood Culture - Final, Complete NO GROWTH AFTER 5 DAYS 12/24/20 Blood Culture - Final, Complete Staphylococcus Aureus 12/24/20 Blood Culture - Final, Complete Staphylococcus Aureus 12/23/20 Blood Culture - Final, Complete NO GROWTH AFTER 5 DAYS 12/23/20 Respiratory Virus Panel (PCR) (CHIDI) - Final, Complete 12/23/20 Urine Culture - Final, Complete Staphylococcus Aureus 12/23/20 Blood Culture - Final, Complete Staphylococcus Aureus RAY,AIDAN MD Jan 02, 2021 12:40
--- NOTE | 2021-01-02 17:06 | CR ---
CONSULTATION DATE: 01/02/2021 TIME OF CONSULT: 1 a.m. CONSULTING SERVICE: Orthopedic surgery. HISTORY OF PRESENT ILLNESS: This is a 50-year-old male, consult is for right shoulder pain. The patient has a complicated past medical history to include coronary artery disease, CABG, diabetes mellitus on insulin Lantus 20 units per day, hyperlipidemia. The patient initially presented on December, with lethargy and altered mental status. The patient was found on the street by EMS. The patient stated that he ran out of his diabetic medication one week prior. The patient currently has increasing weakness of the right upper extremity for the last 4-5 days. The patient received imaging which described below indicative of possible myositis versus fluid collection in the posterior aspect of the patient's right shoulder at the junction between the deltoid muscle and dermal layer consistent with possible abscess. MEDICAL HISTORY: Diabetes, acute renal failure, ulceration of left lower extremity, coronary artery disease status post CABG 2-3 years, elevated troponin, hyperlipidemia, hypertension, diabetes type 2. SURGICAL HISTORY: CABG unknown date. ALLERGIES: NO KNOWN DRUG ALLERGIES. CURRENT MEDICATIONS: Please see med reconciliation note. 1. Atorvastatin. 2. Clopidogrel. 3. Lisinopril. 4. Metoprolol. 5. Jardiance or Empagliflozin. SOCIAL HISTORY: The patient is a nonsmoker, nondrinker, non-IV drug user. REVIEW OF SYSTEMS: Please see internal medicine note. PHYSICAL EXAMINATION: Alert and lethargic x3. Right upper extremity: The patient had what appeared to be very mild edema of the right shoulder. There was no crepitus. On palpation of the patient's right posterior shoulder he did have tenderness to palpation. His right upper extremity had 4/5 motor strength to musculocutaneous axillary, radial, median and ulnar nerve distributions and the musculature pertaining thereto sensation was intact to light touch to the musculocutaneous axillary, radial, median and ulnar nerve distributions. The patient had 2+ radial and ulnar pulse and brisk capillary refill to the digits. IMAGING DATA: Right shoulder radiographs demonstrated some mild glenohumeral osteoarthritis with some very minimal superior migration of the humeral head. There was mild AC joint degeneration with some joint space narrowing. Right shoulder MRI was most significant for edema within the fascial layer the underlying adipose with the deltoid musculature localized in posterior aspect. There is significant fluid collection in that region. It does not appear to have consolidated to an abscess but there may be an infectious process present in the region described. IMPRESSION: This is a 50-year-old male with right shoulder pain, cannot rule out myositis, early necrotizing process in the posterior aspect of the shoulder or abscess collection. PLAN: At this point in time the patient has several medical issues and complicated medical past. However, given his right shoulder I believe he likely has either myositis or possibly right posterior shoulder abscess not involving the glenohumeral joint or very early necrotizing process in the posterior aspect of the patient's right shoulder. I think it would be ideal to continue to follow the patient's labs closely. I will talk with Mike Fallon of infectious disease as well as Dr. Funes tomorrow for getting thoracic MRI in order to further evaluate any other possible abscess collections or fluid collections that could be associated with septic process. Orthopedics will follow the patient clinically in order to determine the best plan of action in the future moving forward. Most likely diagnosis is myositis with possible abscess formation in posterior shoulder secondary to seeding from any number of sources in the patient's body. HUMBERTO
[2021-01-03 02:00] VITALS: BP 133/87
[2021-01-03] MEDS: ceFAZolin SOD 2 GM in IV 1 EA IV SCH ×3 (02:54→18:09)
[2021-01-03] MEDS: **hydrALAZINE HCL** 25 MG TAB PO SCH ×3 (05:45→18:00)
[2021-01-03 06:00] VITALS: BP 149/89
[2021-01-03 06:05] LABS: BASO # 0.1 10^3/uL (0.0-0.2); BASO % 0.4 % (0.0-1.0); EOS # 0.3 10^3/uL (0.0-0.5); EOS % 1.5 % (0.0-3.0); HEMATOCRIT 28.2 % (42.0-52.0); HEMOGLOBIN 8.6 g/dl (13.5-17.5); LYMPH # 2.4 10^3/uL (1.5-5.0); LYMPH % 13.9 % (24.0-44.0); MEAN CORPUSCULAR HEMOGLOBIN 27.7 pg (27.0-33.0); MEAN CORPUSCULAR HGB CONC 30.5 g/dl (32.0-36.5); MEAN CORPUSCULAR VOLUME 90.7 fl (80.0-96.0); MONO # 1.2 10^3/uL (0.0-0.8); MONO % 7.2 % (2.0-8.0); NEUTROPHILS # 13.1 10^3/uL (1.5-8.5); NEUTROPHILS % 76.1 % (36.0-66.0); PLATELET COUNT, AUTOMATED 466 10^3/uL (150-450); RED BLOOD COUNT 3.11 10^6/uL (4.30-6.10); WHITE BLOOD COUNT 17.2 10^3/uL (4.0-10.0)
[2021-01-03] MEDS: PERCOCET 5MG/325MG TAB PO PRN ×3 (06:54→22:17)
[2021-01-03] MEDS: SENOKOT S TAB PO SCH ×2 (09:00→21:00)
[2021-01-03] MEDS: MOM 30ML SUSPENSION UDC PO SCH (09:00)
[2021-01-03] MEDS: PANTOPRAZOLE 40MG TAB (PROTONIX) PO SCH (09:28)
[2021-01-03] MEDS: CLOPIDOGREL 75 MG TAB PO SCH (09:28)
[2021-01-03] MEDS: ATORVASTATIN 20 MG TAB PO SCH (09:28)
[2021-01-03] MEDS: METOPROLOL TART 25 MG TABLET PO SCH ×2 (09:28→22:13)
[2021-01-03] MEDS: LEVEMIR (INSULIN DETEMIR) 1 UNITS/0.01ML SC SCH ×2 (09:29→22:13)
[2021-01-03] MEDS: HumaLOG INSULIN (NovoLOG) PER UNIT SC SCH ×4 (09:30→21:00)
[2021-01-03] MEDS: SANTYL OINT 30GM TOP SCH (09:31)
--- NOTE | 2021-01-03 11:42 | IPNPDOC ---
Subjective Date Seen The patient was seen on 01/03/21. Subjective Chief Complaint/HPI Continues to have severe pain in both the shoulders without difficulty and moving his arms. No fever in the last 24 hours last 3 blood cultures have been negative. . CRP coming down, though WBC 2, still remains elevated. Urine is clear. CBI will be stopped. He'll continue Johns for another week or so unless urology wants to keep it in longer. Objective Physical Examination General Exam: Positive: Alert, Cooperative, No Acute Distress Eye Exam: Positive: Conjunctiva & lids normal, EOMI ENT Exam: Positive: Atraumatic, Mucous membr. moist/pink, Pharynx Normal Neck Exam: Positive: Supple; Negative: JVD Chest Exam: Positive: Normal air movement, Other (bibasal crackles. ); Negative: Rhonchi, Wheezing Heart Exam: Positive: Rate Normal, Regular Rhythm, Normal S1, Normal S2; Negative: Murmurs, Rubs Telemetry: Positive: No significant arrhythmia Abdomen Exam: Positive: Normal bowel sounds, Soft; Negative: Tenderness, Hepatospenomegaly Extremity Exam: Positive: Edema (trace bipedal edema, and also in both hands), Tenderness (both shoulders), Swelling (shoulders); Negative: Clubbing, Cyanosis Skin Exam: Positive: Breakdown (left distal leg wound stage II ulcer 2cm X4 cm) Neuro Exam: Positive: Normal Speech, Strength at 5/5 X4 ext, Normal Tone Psych Exam: Positive: Memory Intact, Oriented x 3 Assessment /Plan Assessment Patient is 50 years old male with past history of coronary artery diseases, CABG, diabetes mellitus on insulin Lantus 50 units twice a day, hyperlipidemia presented to the hospital with lethargy and altered mental status. Patient was somnolent on admission and couldn't provide detailed history. According to the ER physician, patient was found on the street by EMS. Patient stated that he ran out of his diabetes medication for one week. He moved to [place] from [place] recently and doesn't have PCP. In ER patient was found to have white blood count of 31.4, hemoglobin 15.9, glucose level 1037, creatinine 2.6, potassium 5.6, blood osmolarity 375, lipase level 449. Head CT negative. Chest x-ray negative for acute infiltrate. Patient was admitted for DKA, sepsis. Bilateral shoulder pain and swelling MRI and xray of right shoulder noted Discussed with Ortho. needs MRI of left shoulder and chest for further evaluation. These have been ordered. Rule our soft tissues abscess/ septic joint. Planned for exploration in OR after the MRIs are done Started on Percocet for pain control Prostate abscess S/p cystoscopy, right retrograde pyelogram, right ureteral stent placement, TURP prostate abscess on 12/31/20 urology following urine clear will stop CBI and continue johns. Bilateral hydronephrosis and hydroureter due to prostate abscess and trigonal inflammation Had cysto with left ureteral stent placement on 12/25/20. Cysto showed severe inflammation of the trigone causing occlusion of the left ureteral orifice. Again had cystoscopy, right retrograde pyelogram, right ureteral stent placement, TURP prostate abscess on 12/31/20 Now with left ureteral double J stent placed on 12/25/20 and right stent placement on 12/31/20 Will need cath for about a week and follow up with urology on discharge to follow up about the stents. Sepsis with MSSA bacteremia, septic emboli, pyelonephritis, likely source urinary tract / prostate abscess blood culture and urine culture MSSA . Negative starting 12/30/20 changed to Cefazolin from nafcillin to preserve veins. Echo done EF of 50% to 55%. LVH and grade 1 diastolic dysfunction. CONCEPCION no vegetations. EF of 65%, lipomatous hypertrophy of the atrial septum no RWMA. patient will need 4 weeks of antibiotics will place a picc line once blood cultures are negative. DKA on admission sugar > 1000 Secondary to running out of insulin and sepsis. now resolved Carb consistent diet and Fs AC and HS. Levemir and lispro Acute renal failure Most likely secondary to dehydration due to DKA and obstructive uropathy creatinine from aug 10.7 so patient may have underlying CKD also. Now improving. Stage II ulcer on the left lateral supramalleolar region does not look infected. Appreciate/agree with wound care consult Hypernatremia resolved Coronary artery diseases Status post CABG in 2014. Continue atorvastatin, clopidogrel, metoprolol Elevated troponin On 12/24/20 troponin was elevated to 0.04 Patient denied any chest pain EKG negative for ischemic changes Troponin trended down likely due to sepsis and deandre, dka. HLD continue statin Hypertension will stop lisinopril for now as has DEANDRE amlodipine and metoprolol. Plan/VTE VTE Prophylaxis Ordered?: Yes VS, I&O, 24H, Fishbone Vital Signs/I&O Vital Signs Date Time Temp Pulse Resp B/P (MAP) Pulse Ox O2 Delivery O2 Flow Rate FiO2 01/03/21 09:28 85 149/89 01/03/21 09:00 3.0 01/03/21 07:24 18 01/03/21 06:54 91 Nasal Cannula 01/03/21 06:00 99.1 I&O- Last 24 Hours up to 6 AM 01/03/21 06:00 Intake Total 3150 ml Output Total 5000 ml Balance -1850 ml Laboratory Data 24H LABS Laboratory Tests 2 01/02/21 17:14: Bedside Glucose (Misc Panel) 233H 01/02/21 20:09: Bedside Glucose (Misc Panel) 308H 01/03/21 05:26: Immature Granulocyte % (Auto) 0.9, Neutrophils (%) (Auto) 76.1H, Lymphocytes (%) (Auto) 13.9L, Monocytes (%) (Auto) 7.2, Eosinophils (%) (Auto) 1.5, Basophils (%) (Auto) 0.4, Neutrophils # (Auto) 13.1H, Lymphocytes # (Auto) 2.4, Monocytes # (Auto) 1.2H, Eosinophils # (Auto) 0.3, Basophils # (Auto) 0.1, Nucleated Red Blood Cells % (auto) 0.0 01/03/21 05:59: Bedside Glucose (Misc Panel) 210H CBC/BMP Laboratory Tests 01/03/21 05:26 Microbiology Microbiology 01/01/21 Blood Culture - Preliminary, Resulted No Growth after 48 hours. All Specime... 12/31/20 Blood Culture - Preliminary, Resulted No Growth after 72 hours. All specime... 12/30/20 Blood Culture - Preliminary, Resulted No Growth after 72 hours. All specime... 12/28/20 Blood Culture - Final, Complete Staphylococcus Aureus 12/27/20 Blood Culture - Final, Complete NO GROWTH AFTER 5 DAYS 12/24/20 Blood Culture - Final, Complete Staphylococcus Aureus 12/24/20 Blood Culture - Final, Complete Staphylococcus Aureus AIDAN MEYERS MD Jan 03, 2021 11:42
--- NOTE | 2021-01-03 21:39 | REPVR ---
PROCEDURE INFORMATION: Exam: MR Chest Without Contrast. Exam date and time: 01/03/2021 9:02 PM Age: 50 years old Clinical indication: Abnormal findings; Other: Infection; Patient HX: Compare with prior, attn upper right shld/clavicle area and chest wall; Additional info: Chest wall abscess/ necrotising fascitis from right shoulder TECHNIQUE: Imaging protocol: MR chest without contrast. COMPARISON: CT Chest with contrast 12/30/2020 6:15 PM FINDINGS: Lungs: See "Bones/joints" finding. Heart: Unremarkable. Pleural space: Multiple parenchymal opacities and pleural fluid in the visualized right hemithorax and to a lesser degree the left hemithorax, findings which can be seen with metastatic disease and or multifocal pneumonitis. Bones/joints: Acromioclavicular arthrosis with fluid in the acromioclavicular joint stable in comparison to the prior study. Moderate to severe degenerative changes in the glenohumeral joint including osteophytosis. Small glenohumeral joint effusion. Glenoid labrum not well evaluated, demonstrating degenerative changes in the anterior superior labrum otherwise grossly unremarkable. Abnormal signal demonstrated in the distal clavicle. Finding may be degenerative however the possibility of osteomyelitis not excluded. Increased signal demonstrated in the greater tuberosity likely degenerative associated with small subchondral degenerative cysts. Soft tissues: Soft tissue inflammatory changes demonstrated in the superior aspect of the shoulder surrounding the glenohumeral joint, extending into the lateral supraclavicular fossa and anteriorly along the subscapularis and pectoralis muscles. Minimal edema demonstrated tracking posterior along the soft tissue plane between the infraspinatus and deltoid. IMPRESSION: 1. Multiple parenchymal opacities and pleural fluid in the visualized right hemithorax and to a lesser degree the left hemithorax, findings which can be seen with metastatic disease and or multifocal pneumonitis. 2. Acromioclavicular arthrosis with fluid in the acromioclavicular joint stable in comparison to the prior study. 3. Moderate to severe degenerative changes in the glenohumeral joint including osteophytosis. Small glenohumeral joint effusion. 4. Inflammatory changes as described above consistent with reported history of periarticular abscess at the shoulder. 5. Abnormal signal demonstrated in the distal clavicle. Finding may be degenerative however the possibility of osteomyelitis not excluded. 6. Findings are grossly stable in comparison to the prior study of 01/01/2021. Electronically signed by: Lorenzo Juarez On 01/03/2021 21:39:25 PM
[2021-01-03 22:00] VITALS: BP 143/95
[2021-01-04] MEDS: ceFAZolin SOD 2 GM in IV 1 EA IV SCH ×3 (01:11→17:49)
[2021-01-04] MEDS: **hydrALAZINE HCL** 25 MG TAB PO SCH ×4 (05:18→17:56)
[2021-01-04] MEDS: PERCOCET 5MG/325MG TAB PO PRN ×3 (05:18→18:43)
[2021-01-04 06:00] VITALS: BP 140/88
[2021-01-04 06:43] LABS: BASO # 0.1 10^3/uL (0.0-0.2); BASO % 0.4 % (0.0-1.0); EOS # 0.2 10^3/uL (0.0-0.5); EOS % 1.3 % (0.0-3.0); HEMATOCRIT 27.5 % (42.0-52.0); HEMOGLOBIN 8.5 g/dl (13.5-17.5); LYMPH # 2.2 10^3/uL (1.5-5.0); LYMPH % 12.6 % (24.0-44.0); MEAN CORPUSCULAR HEMOGLOBIN 27.8 pg (27.0-33.0); MEAN CORPUSCULAR HGB CONC 30.9 g/dl (32.0-36.5); MEAN CORPUSCULAR VOLUME 89.9 fl (80.0-96.0); MONO # 1.4 10^3/uL (0.0-0.8); MONO % 8.1 % (2.0-8.0); NEUTROPHILS # 13.2 10^3/uL (1.5-8.5); NEUTROPHILS % 76.8 % (36.0-66.0); PLATELET COUNT, AUTOMATED 508 10^3/uL (150-450); RED BLOOD COUNT 3.06 10^6/uL (4.30-6.10); WHITE BLOOD COUNT 17.2 10^3/uL (4.0-10.0)
[2021-01-04 07:09] LABS: BLOOD UREA NITROGEN 22 MG/DL (7-18); CARBON DIOXIDE LEVEL 24 MEQ/L (21-32); CHLORIDE LEVEL 109 MEQ/L (98-107); CREATININE FOR GFR 1.29 MG/DL (0.70-1.30); GLOMERULAR FILTRATION RATE > 60.0 (>60); GLUCOSE, FASTING 139 MG/DL (70-100); SODIUM LEVEL 138 MEQ/L (136-145)
--- NOTE | 2021-01-04 07:51 | IPNPDOC ---
Subjective Date Seen The patient was seen on 01/04/21. Subjective Chief Complaint/HPI Feeling a little better every day. Now except for both of his shoulders he feels OK. Reports still having night sweats. Had MRI chest yesterday . Acromioclavicular arthrosis with fluid in the acromioclavicular joint, Small glenohumeral joint effusion severe OA. Likely Abscess at the shoulder. Abnormal signal demonstrated in the distal clavicle could be degenerative or osteomyelitis Objective Physical Examination General Exam: Positive: Alert, Cooperative, No Acute Distress Eye Exam: Positive: Conjunctiva & lids normal, EOMI ENT Exam: Positive: Atraumatic, Mucous membr. moist/pink, Pharynx Normal Neck Exam: Positive: Supple; Negative: JVD Chest Exam: Positive: Normal air movement, Other (bibasal crackles. ); Negative: Rhonchi, Wheezing Heart Exam: Positive: Rate Normal, Regular Rhythm, Normal S1, Normal S2; Negative: Murmurs, Rubs Telemetry: Positive: No significant arrhythmia Abdomen Exam: Positive: Normal bowel sounds, Soft; Negative: Tenderness, Hepatospenomegaly Extremity Exam: Positive: Edema (trace bipedal edema, and also in both hands), Tenderness (both shoulders), Swelling (shoulders); Negative: Clubbing, Cyanosis Skin Exam: Positive: Breakdown (left distal leg wound stage II ulcer 2cm X4 cm) Neuro Exam: Positive: Normal Speech, Strength at 5/5 X4 ext, Normal Tone Psych Exam: Positive: Memory Intact, Oriented x 3 Assessment /Plan Assessment Patient is 50 years old male with past history of coronary artery diseases, CABG, diabetes mellitus on insulin Lantus 50 units twice a day, hyperlipidemia presented to the hospital with lethargy and altered mental status. Patient was somnolent on admission and couldn't provide detailed history. According to the ER physician, patient was found on the street by EMS. Patient stated that he ran out of his diabetes medication for one week. He moved to [place] from [place] recently and doesn't have PCP. In ER patient was found to have white blood count of 31.4, hemoglobin 15.9, glucose level 1037, creatinine 2.6, potassium 5.6, blood osmolarity 375, lipase level 449. Head CT negative. Chest x-ray negative for acute infiltrate. Patient was admitted for DKA, sepsis. Bilateral shoulder pain and swelling MRI and xray of right shoulder noted Discussed with Ortho. needs MRI of left shoulder and chest for further evaluation. These have been ordered. Rule our soft tissues abscess/ septic joint. Planned for exploration in OR after the MRIs are done Started on Percocet for pain control Prostate abscess S/p cystoscopy, right retrograde pyelogram, right ureteral stent placement, TURP prostate abscess on 12/31/20 urology following urine clear will stop CBI and continue johns. Bilateral hydronephrosis and hydroureter due to prostate abscess and trigonal inflammation Had cysto with left ureteral stent placement on 12/25/20. Cysto showed severe inflammation of the trigone causing occlusion of the left ureteral orifice. Again had cystoscopy, right retrograde pyelogram, right ureteral stent placement, TURP prostate abscess on 12/31/20 Now with left ureteral double J stent placed on 12/25/20 and right stent placement on 12/31/20 Will need cath for about a week and follow up with urology on discharge to follow up about the stents. Sepsis with MSSA bacteremia, septic emboli, pyelonephritis, likely source urinary tract / prostate abscess blood culture and urine culture MSSA . Negative starting 12/30/20 changed to Cefazolin from nafcillin to preserve veins. Echo done EF of 50% to 55%. LVH and grade 1 diastolic dysfunction. CONCEPCION no vegetations. EF of 65%, lipomatous hypertrophy of the atrial septum no RWMA. patient will need 4 weeks of antibiotics [address] place a picc line once blood cultures are negative. DKA on admission sugar > 1000 Secondary to running out of insulin and sepsis. now resolved Carb consistent diet and Fs AC and HS. Levemir and lispro Acute renal failure Most likely secondary to dehydration due to DKA and obstructive uropathy It lookd like this was all DEANDRE as his creatinine has now normalized. Stage II ulcer on the left lateral supramalleolar region does not look infected. Appreciate/agree with wound care consult Hypernatremia resolved Coronary artery diseases Status post CABG in 2014. Continue atorvastatin, clopidogrel, metoprolol Elevated troponin On 12/24/20 troponin was elevated to 0.04 Patient denied any chest pain EKG negative for ischemic changes Troponin trended down likely due to sepsis and deandre, dka. HLD continue statin Hypertension will stop lisinopril for now as has DEANDRE amlodipine and metoprolol. Plan/VTE VTE Prophylaxis Ordered?: Yes VS, I&O, 24H, Fishbone Vital Signs/I&O Vital Signs Date Time Temp Pulse Resp B/P (MAP) Pulse Ox O2 Delivery O2 Flow Rate FiO2 01/04/21 06:00 98.9 91 20 140/88 (105) 91 Nasal Cannula 3.0 I&O- Last 24 Hours up to 6 AM 01/04/21 06:00 Intake Total 2390 ml Output Total 4100 ml Balance -1710 ml Laboratory Data 24H LABS Laboratory Tests 2 01/03/21 12:07: Bedside Glucose (Misc Panel) 251H 01/03/21 17:13: Bedside Glucose (Misc Panel) 167H 01/03/21 21:46: Bedside Glucose (Misc Panel) 185H 01/04/21 05:53: Immature Granulocyte % (Auto) 0.8, Neutrophils (%) (Auto) 76.8H, Lymphocytes (%) (Auto) 12.6L, Monocytes (%) (Auto) 8.1H, Eosinophils (%) (Auto) 1.3, Basophils (%) (Auto) 0.4, Neutrophils # (Auto) 13.2H, Lymphocytes # (Auto) 2.2, Monocytes # (Auto) 1.4H, Eosinophils # (Auto) 0.2, Basophils # (Auto) 0.1, Nucleated Red Blood Cells % (auto) 0.0, Anion Gap 5L, Glomerular Filtration Rate > 60.0, Calcium Level 8.0L CBC/BMP Laboratory Tests 01/04/21 05:53 Microbiology Microbiology 01/01/21 Blood Culture - Preliminary, Resulted No Growth after 72 hours. All specime... 12/31/20 Blood Culture - Preliminary, Resulted No Growth after 72 hours. All specime... 12/30/20 Blood Culture - Final, Complete NO GROWTH AFTER 5 DAYS 12/28/20 Blood Culture - Final, Complete Staphylococcus Aureus 12/27/20 Blood Culture - Final, Complete NO GROWTH AFTER 5 DAYS AIDAN MEYERS MD Jan 04, 2021 07:51
[2021-01-04] MEDS: SENOKOT S TAB PO SCH ×2 (08:06→20:40)
[2021-01-04] MEDS: CLOPIDOGREL 75 MG TAB PO SCH (08:07)
[2021-01-04] MEDS: ATORVASTATIN 20 MG TAB PO SCH (08:07)
[2021-01-04] MEDS: LEVEMIR (INSULIN DETEMIR) 1 UNITS/0.01ML SC SCH ×2 (08:07→20:40)
[2021-01-04] MEDS: METOPROLOL TART 25 MG TABLET PO SCH ×2 (08:07→20:40)
[2021-01-04] MEDS: PANTOPRAZOLE 40MG TAB (PROTONIX) PO SCH (08:07)
[2021-01-04] MEDS: HumaLOG INSULIN (NovoLOG) PER UNIT SC SCH ×4 (08:08→20:35)
[2021-01-04] MEDS: SANTYL OINT 30GM TOP SCH (08:08)
[2021-01-04] MEDS: MOM 30ML SUSPENSION UDC PO SCH (08:09)
--- NOTE | 2021-01-04 10:24 | IPN ---
PROGRESS NOTE DATE: 01/03/2021 SUBJECTIVE: Bernardo is doing better except for right shoulder pain. He was seen by orthopedic surgery regarding right shoulder pain and had an MRI, which showed moderate subcutaneous edema over the posterior aspect and superior aspect of the shoulder with extension medially over anterior chest, with moderate edema involving the deltoid and supraspinatus. Could be posttraumatic or related to infectious myositis. Small fluid and density in the deep soft tissues in the arc of the distal clavicle could also represent an abscess, hematoma or seroma. He denies any back pain. He has some shortness of breath but no cough or hemoptysis. No nausea, vomiting or diarrhea. His last temperature was on 01/01/2021, 100.3. MEDICATIONS: - cefazolin 2 grams intravenous (IV) every 8 hours. LABORATORY STUDIES: White count 17.2, hemoglobin 8.6, hematocrit 28.2, platelets 466, 75% neutrophils, 14% lymphocytes, 7% monocytes. Sodium 142, potassium 4.4, chloride 113, bicarbonate 24, BUN 24, creatinine 1.51, glucose 113, calcium 1.9. C-reactive protein (CRP) 14.1, down from 20.1 on 12/30/2020. Blood cultures are finally negative on 12/30/2020, 12/31/2020 and 01/01/2021. PHYSICAL EXAMINATION: Temperature 99.1, pulse 85, respirations 20, blood pressure 140/82, oxygen saturation on 3 liters nasal cannula 91%. IMPRESSION: 1. Methicillin sensitive Staphylococcus aureus (MSSA) bacteremia with fever and sepsis urinary origin, prostate abscess with bilateral hydronephrosis and secondary lung cavitary pneumonia and now seeding of the right shoulder. Patient on IV cefazolin 2gm Q*8. Will need to be on IV antibiotics for at least four weeks from his negative cultures. 2. Right shoulder pain. Patient does not have erythema, but he definitively have subcutaneus edema, +2 pitting along the deltoid and clinically myositis. He has mostly pain with external rotation. Consultation by Dr. Armstrong was reviewed. He recommended thoracic MRI for further evaluation of abscess 3. Cavitary pneumonia from methicillin sensitive Streptococcus aureus (MSSA). Patient remains hypoxic on 3 liters nasal cannula. 4. Acute kidney injury. Improving. Creatinine 1.51, down from 2.67. Patient to remain with catheter, as he has urinary obstruction from the prostate abscess and trigonitis. PLAN: Continue with IV cefazolin 2 grams every 8 hours. Patient can get a peripherally inserted central catheter (PICC) line at this point in anticipation of prolonged IV antibiotics. His IV was just changed today to his left hand. Patient most likely will need to have rehabilitation and IV antibiotics in an inpatient setting. HUMBERTO
[2021-01-04 14:00] VITALS: BP 128/77
[2021-01-04 22:00] VITALS: BP 144/89
--- NOTE | 2021-01-04 22:13 | IPN ---
INFECTIOUS DISEASE PROGRESS NOTE DATE: 01/04/2021 SUBJECTIVE: Bernardo was seen this afternoon. He was sleeping, easily awoken, but complains again of shoulder pain. He has no nausea, vomiting or diarrhea. No fever or chills. He remains on 3 liters oxygen with 96% saturation. He has mild shortness of breath, but no cough or hemoptysis. His only complaint is mostly his shoulder pain. He has a catheter in place. No urinary symptoms. No nausea, vomiting or diarrhea. LABORATORY STUDIES: White count remains elevated at 17.2, hemoglobin 8.5, hematocrit 27.5, platelets 508, 77% neutrophils, 12% lymphocytes 8% monocytes. Sodium 138, potassium 4, chloride 109, bicarbonate 24, BUN 22, creatinine 1.29, which has decreased from 1.51, glucose 139, calcium 8. C-reactive protein (CRP) 14.1. Blood cultures on 12/30/2020, 12/31/2020 and 01/01/2021 all negative. No growth after 72 hours. MRI chest done on 01/03/2021 showed acromioclavicular arthrosis with fluid in the acromioclavicular joint, stable compared to previous study, with moderate to severe degenerative changes in glenohumeral joint. There is a small glenohumeral joint effusion. Abnormal signal demonstrated in the distal clavicle. Finding may be degenerative; however, osteomyelitis cannot be ruled out. There is also subchondral degenerative cysts. Soft tissue inflammatory changes demonstrated in the superior aspect of the shoulder surrounding the glenohumeral joint extending into the lateral supraclavicular fossa and anteriorly along the subscapularis and pectoralis muscles. Minimal edema demonstrated tracking posteriorly along the soft tissue planes. Multiple parenchymal opacities in the lungs consistent with septic emboli. PHYSICAL EXAMINATION: Temperature 97.7, pulse 92, respirations 20, blood pressure 128/77, oxygen saturation 96% on 3 liters nasal cannula. HEART: Normal S1, S2. No murmurs appreciated. LUNGS: Diminished breath sounds at the bases, but clear. No wheezes, rales or rhonchi. ABDOMEN: Obese, soft, nontender. GENITOURINARY (): Catheter in place with clear urine. EXTREMITIES: Trace edema. No clubbing or cyanosis. Right shoulder: Difficulty with flexion, is not able to elevate his shoulder. He has pain mostly with passive range of motion at around 45 degrees. There is no obvious erythema. There is some swelling along the subcutaneous tissues with 1+ pitting edema. Left shoulder has good range of motion, but he also has some pain with rotation. IMPRESSION: A 50-year-old gentleman with methicillin sensitive Streptococcus aureus (MSSA) sepsis, persistent bacteremia for five days complicated by septic emboli to the lungs, cavitary pneumonia, remains on 3 liters oxygen, and shoulder pain concerning for seeding of the shoulder joints versus just myositis. PLAN: 1. Continue with intravenous (IV) cefazolin at 2 grams every 8 hours. The patient will need prolonged antibiotic therapy and therefore a peripherally inserted central catheter (PICC) line will be placed tomorrow since he has had a negative culture. 2. As far as shoulder pain, orthopedics needs to review the MRI findings to see if he needs an incision and drainage (I and D), especially if his pain worsens, for abscess drainage. 3. As far as cavitary pneumonia, the patient will remain on IV cefazolin and oxygen until hypoxia resolves. 4. Kidney injury has resolved. The patient was supposed to remain with a catheter for at least two weeks status post drainage of prostate abscess. Please make sure orthopedic surgery follows up on findings of the shoulder and, if white count remains elevated, probable drainage procedure.
[2021-01-05] VITALS (8 sets, daily range): BP systolic 119–150; BP diastolic 76–84
[2021-01-05] MEDS: ceFAZolin SOD 2 GM in IV 1 EA IV SCH ×3 (01:17→18:54)
[2021-01-05] MEDS: PERCOCET 5MG/325MG TAB PO PRN ×2 (05:26→22:05)
[2021-01-05] MEDS: **hydrALAZINE HCL** 25 MG TAB PO SCH ×4 (06:00→18:00)
[2021-01-05 06:14] LABS: BASO # 0.1 10^3/uL (0.0-0.2); BASO % 0.5 % (0.0-1.0); EOS # 0.2 10^3/uL (0.0-0.5); EOS % 1.1 % (0.0-3.0); HEMATOCRIT 26.6 % (42.0-52.0); HEMOGLOBIN 8.2 g/dl (13.5-17.5); LYMPH # 2.3 10^3/uL (1.5-5.0); LYMPH % 13.4 % (24.0-44.0); MEAN CORPUSCULAR HEMOGLOBIN 27.6 pg (27.0-33.0); MEAN CORPUSCULAR HGB CONC 30.8 g/dl (32.0-36.5); MEAN CORPUSCULAR VOLUME 89.6 fl (80.0-96.0); MONO # 1.2 10^3/uL (0.0-0.8); NEUTROPHILS % 77.3 % (36.0-66.0); PLATELET COUNT, AUTOMATED 503 10^3/uL (150-450); RED BLOOD COUNT 2.97 10^6/uL (4.30-6.10); WHITE BLOOD COUNT 16.8 10^3/uL (4.0-10.0)
[2021-01-05 06:37] LABS: BLOOD UREA NITROGEN 23 MG/DL (7-18); CARBON DIOXIDE LEVEL 25 MEQ/L (21-32); CHLORIDE LEVEL 106 MEQ/L (98-107); CREATININE FOR GFR 1.31 MG/DL (0.70-1.30); GLOMERULAR FILTRATION RATE > 60.0 (>60); GLUCOSE, FASTING 129 MG/DL (70-100); POTASSIUM SERUM 4.2 MEQ/L (3.5-5.1); SODIUM LEVEL 137 MEQ/L (136-145)
[2021-01-05] MEDS: HumaLOG INSULIN (NovoLOG) PER UNIT SC SCH ×4 (07:30→21:11)
[2021-01-05] MEDS ORDERED: LR 1,000 ML IV SCH ×2 (07:50→18:20)
--- NOTE | 2021-01-05 08:00 | IPNPDOC ---
Subjective Date Seen The patient was seen on 01/05/21. Subjective Chief Complaint/HPI Feeling well except for shoulder pain bilaterally. Planned for going to OR for shoulder exploration with Dr Armstrong. WIll get a picc line also. Objective Physical Examination General Exam: Positive: Alert, Cooperative, No Acute Distress Eye Exam: Positive: Conjunctiva & lids normal, EOMI ENT Exam: Positive: Atraumatic, Mucous membr. moist/pink, Pharynx Normal Neck Exam: Positive: Supple; Negative: JVD Chest Exam: Positive: Normal air movement, Other (bibasal crackles. ); Negative: Rhonchi, Wheezing Heart Exam: Positive: Rate Normal, Regular Rhythm, Normal S1, Normal S2; Negative: Murmurs, Rubs Telemetry: Positive: No significant arrhythmia Abdomen Exam: Positive: Normal bowel sounds, Soft; Negative: Tenderness, Hepatospenomegaly Extremity Exam: Positive: Edema (trace bipedal edema, and also in both hands), Tenderness (both shoulders), Swelling (shoulders); Negative: Clubbing, Cyanosis Skin Exam: Positive: Breakdown (left distal leg wound stage II ulcer 2cm X4 cm) Neuro Exam: Positive: Normal Speech, Strength at 5/5 X4 ext, Normal Tone Psych Exam: Positive: Memory Intact, Oriented x 3 Assessment /Plan Assessment Patient is 50 years old male with past history of coronary artery diseases, CABG, diabetes mellitus on insulin Lantus 50 units twice a day, hyperlipidemia presented to the hospital with lethargy and altered mental status. Patient was somnolent on admission and couldn't provide detailed history. According to the ER physician, patient was found on the street by EMS. Patient stated that he ran out of his diabetes medication for one week. He moved to [place] from [place] recently and doesn't have PCP. In ER patient was found to have white blood count of 31.4, hemoglobin 15.9, glucose level 1037, creatinine 2.6, potassium 5.6, blood osmolarity 375, lipase level 449. Head CT negative. Chest x-ray negative for acute infiltrate. Patient was admitted for DKA, sepsis. Sepsis with MSSA bacteremia, septic emboli, pyelonephritis, likely source urinary tract / prostate abscess blood culture and urine culture MSSA . Negative starting 12/30/20 Echo done EF of 50% to 55%. LVH and grade 1 diastolic dysfunction. CONCEPCION no vegetations. EF of 65%, lipomatous hypertrophy of the atrial septum no RWMA. on Cefazolin patient will need 4 weeks of antibiotics ID following Bilateral shoulder pain and swelling MRI and xray of right shoulder noted soft tissues abscess/ septic joint/OM Planned for exploration in OR on 01/05/21 Started on Percocet for pain control Prostate abscess S/p cystoscopy, right retrograde pyelogram, right ureteral stent placement, TURP prostate abscess on 12/31/20 urology following urine clear will stop CBI and continue johns. Bilateral hydronephrosis and hydroureter due to prostate abscess and trigonal inflammation Had cysto with left ureteral stent placement on 12/25/20. Cysto showed severe inflammation of the trigone causing occlusion of the left ureteral orifice. Again had cystoscopy, right retrograde pyelogram, right ureteral stent placement, TURP prostate abscess on 12/31/20 Now with left ureteral double J stent placed on 12/25/20 and right stent placement on 12/31/20 Will need cath for about a week and follow up with urology on discharge to follow up about the stents. Acute renal failure Most likely secondary to dehydration due to DKA and obstructive uropathy It looks like this was all DEANDRE as his creatinine has now normalized. DKA on admission sugar > 1000 Secondary to running out of insulin and sepsis. now resolved Carb consistent diet and Fs AC and HS. Levemir and lispro Stage II ulcer on the left lateral supramalleolar region does not look infected. Appreciate/agree with wound care consult Hypernatremia resolved Coronary artery diseases Status post CABG in 2014. Continue atorvastatin, clopidogrel, metoprolol Elevated troponin On 12/24/20 troponin was elevated to 0.04 Patient denied any chest pain EKG negative for ischemic changes Troponin trended down likely due to sepsis and deandre, dka. HLD continue statin Hypertension stop lisinopril as had DEANDRE amlodipine and metoprolol. Plan/VTE VTE Prophylaxis Ordered?: Yes VS, I&O, 24H, Fishbone Vital Signs/I&O Vital Signs Date Time Temp Pulse Resp B/P (MAP) Pulse Ox O2 Delivery O2 Flow Rate FiO2 01/05/21 06:29 19 01/05/21 06:00 99.2 94 150/82 (104) 90 Nasal Cannula 3.0 I&O- Last 24 Hours up to 6 AM 01/05/21 06:00 Intake Total 2100 ml Output Total 3300 ml Balance -1200 ml Laboratory Data 24H LABS Laboratory Tests 2 01/04/21 11:48: Bedside Glucose (Misc Panel) 196H 01/04/21 16:57: Bedside Glucose (Misc Panel) 186H 01/04/21 19:47: Bedside Glucose (Misc Panel) 226H 01/05/21 05:28: Immature Granulocyte % (Auto) 0.7, Neutrophils (%) (Auto) 77.3H, Lymphocytes (%) (Auto) 13.4L, Monocytes (%) (Auto) 7.0, Eosinophils (%) (Auto) 1.1, Basophils (%) (Auto) 0.5, Neutrophils # (Auto) 13.0H, Lymphocytes # (Auto) 2.3, Monocytes # (Auto) 1.2H, Eosinophils # (Auto) 0.2, Basophils # (Auto) 0.1, Nucleated Red Blood Cells % (auto) 0.0, Anion Gap 6L, Glomerular Filtration Rate > 60.0, Calcium Level 8.0L CBC/BMP Laboratory Tests 01/05/21 05:28 Microbiology Microbiology 01/01/21 Blood Culture - Preliminary, Resulted No Growth after 72 hours. All specime... 12/31/20 Blood Culture - Final, Complete NO GROWTH AFTER 5 DAYS 12/30/20 Blood Culture - Final, Complete NO GROWTH AFTER 5 DAYS 12/28/20 Blood Culture - Final, Complete Staphylococcus Aureus 12/27/20 Blood Culture - Final, Complete NO GROWTH AFTER 5 DAYS AIDAN MEYERS MD Jan 05, 2021 08:00
[2021-01-05] MEDS: LEVEMIR (INSULIN DETEMIR) 1 UNITS/0.01ML SC SCH ×2 (09:00→21:12)
[2021-01-05] MEDS: SENOKOT S TAB PO SCH ×2 (10:49→21:00)
[2021-01-05] MEDS: CLOPIDOGREL 75 MG TAB PO SCH (10:49)
[2021-01-05] MEDS: MOM 30ML SUSPENSION UDC PO SCH (10:49)
[2021-01-05] MEDS: ATORVASTATIN 20 MG TAB PO SCH (11:00)
[2021-01-05] MEDS: PANTOPRAZOLE 40MG TAB (PROTONIX) PO SCH (11:01)
[2021-01-05] MEDS: METOPROLOL TART 25 MG TABLET PO SCH ×2 (11:13→21:12)
[2021-01-05] MEDS: SANTYL OINT 30GM TOP SCH (11:14)
[2021-01-05] MEDS ORDERED: propofoL 200 MG/20 ML VIAL As Ordered ONE ×2 (14:20→17:15)
[2021-01-05] MEDS ORDERED: LIDOCAINE 2% 100MG/5ML SDV (FOR ANES.) As Ordered ONE (14:21)
[2021-01-05] MEDS ORDERED: ROCURONIUM BROMIDE 50 MG/5 ML VIAL As Ordered ONE ×2 (14:21→15:30)
[2021-01-05] MEDS ORDERED: fentaNYL 100 MCG/2 ML INJECTION (J3010) As Ordered ONE ×3 (14:21→16:49)
[2021-01-05] MEDS ORDERED: ONDANSETRON 4MG/2ML VIAL As Ordered ONE ×2 (14:22→16:49)
[2021-01-05] MEDS ORDERED: dexameTHASONE 4 MG/ML 1ML VIAL (J1100 PER 1MG) As Ordered ONE (14:22)
[2021-01-05] MEDS ORDERED: MIDAZOLAM INJ 2MG/2ML VIAL (J2250 PER 1MG) As Ordered ONE (14:22)
[2021-01-05] MEDS ORDERED: LACRILUBE (AKWA TEARS) OPHTH OINT 3.5 GM As Ordered ONE (15:06)
[2021-01-05] MEDS ORDERED: ACETAMINOPHEN 1000MG 100ML IV BTL (OFIRMEV) (J0131 PER 10MG) As Ordered ONE (16:46)
[2021-01-05] MEDS ORDERED: KETOROLAC 60MG 2ML VIAL As Ordered ONE (16:49)
[2021-01-05] MEDS ORDERED: SUGAMMADEX SODIUM 500 MG/5 ML VIAL (BRIDION) As Ordered ONE (16:51)
[2021-01-05] MEDS ORDERED: KETOROLAC 30 MG/ML 1ML VIAL IV PRN (17:14)
[2021-01-05] MEDS ORDERED: ONDANSETRON 4MG/2ML VIAL IV PRN (18:20)
[2021-01-05] MEDS ORDERED: fentaNYL 100 MCG/2 ML INJECTION (J3010) IV PRN (18:20)
[2021-01-05] MEDS ORDERED: PERCOCET 5MG/325MG TAB PO PRN (18:20)
[2021-01-06] MEDS: ceFAZolin SOD 2 GM in IV 1 EA IV SCH ×3 (01:13→18:02)
[2021-01-06 03:45] VITALS: BP 126/85
[2021-01-06] MEDS: **hydrALAZINE HCL** 25 MG TAB PO SCH ×4 (05:55→18:00)
[2021-01-06 06:00] VITALS: BP 128/86
[2021-01-06 06:04] LABS: BASO % 0.1 % (0.0-1.0); HEMATOCRIT 25.7 % (42.0-52.0); HEMOGLOBIN 7.8 g/dl (13.5-17.5); LYMPH # 1.2 10^3/uL (1.5-5.0); LYMPH % 7.7 % (24.0-44.0); MEAN CORPUSCULAR HEMOGLOBIN 27.6 pg (27.0-33.0); MEAN CORPUSCULAR HGB CONC 30.4 g/dl (32.0-36.5); MEAN CORPUSCULAR VOLUME 90.8 fl (80.0-96.0); MONO # 0.9 10^3/uL (0.0-0.8); MONO % 6.2 % (2.0-8.0); NEUTROPHILS # 12.8 10^3/uL (1.5-8.5); NEUTROPHILS % 85.5 % (36.0-66.0); PLATELET COUNT, AUTOMATED 467 10^3/uL (150-450); RED BLOOD COUNT 2.83 10^6/uL (4.30-6.10); WHITE BLOOD COUNT 14.9 10^3/uL (4.0-10.0)
[2021-01-06 06:30] LABS: CALCIUM LEVEL 7.8 MG/DL (8.5-10.1); CREATININE FOR GFR 1.56 MG/DL (0.70-1.30); GLOMERULAR FILTRATION RATE 50.8 (>60); POTASSIUM SERUM 5.4 MEQ/L (3.5-5.1)
[2021-01-06] MEDS: LEVEMIR (INSULIN DETEMIR) 1 UNITS/0.01ML SC SCH ×2 (08:23→20:39)
[2021-01-06] MEDS: HumaLOG INSULIN (NovoLOG) PER UNIT SC SCH ×4 (08:23→20:39)
[2021-01-06] MEDS: ATORVASTATIN 20 MG TAB PO SCH (08:24)
[2021-01-06] MEDS: PANTOPRAZOLE 40MG TAB (PROTONIX) PO SCH (08:24)
[2021-01-06] MEDS: CLOPIDOGREL 75 MG TAB PO SCH (08:24)
[2021-01-06] MEDS: MOM 30ML SUSPENSION UDC PO SCH (08:25)
[2021-01-06] MEDS: SANTYL OINT 30GM TOP SCH (08:25)
[2021-01-06] MEDS: SENOKOT S TAB PO SCH ×2 (08:25→20:37)
[2021-01-06] MEDS: METOPROLOL TART 25 MG TABLET PO SCH ×2 (09:03→20:37)
[2021-01-06 10:56] VITALS: BP 116/71
[2021-01-06] MEDS: PERCOCET 5MG/325MG TAB PO PRN ×2 (11:12→20:38)
--- NOTE | 2021-01-06 13:04 | IPNPDOC ---
Subjective Date Seen The patient was seen on 01/06/21. Subjective Chief Complaint/HPI No new complaints today. Says the left shoulder is feeling better and he is able to move the left arm. He had exploration of the left shoulder and the soft tissue around the shoulder yesterday. The procedure notes are not yet available. No fever or chills. Patient reports that he is always thirsty and drinks a lot of water. Objective Physical Examination General Exam: Positive: Alert, Cooperative, No Acute Distress Eye Exam: Positive: Conjunctiva & lids normal, EOMI ENT Exam: Positive: Atraumatic, Mucous membr. moist/pink, Pharynx Normal Neck Exam: Positive: Supple; Negative: JVD Chest Exam: Positive: Normal air movement, Other (bibasal crackles. ); Negative: Rhonchi, Wheezing Heart Exam: Positive: Rate Normal, Regular Rhythm, Normal S1, Normal S2; Negative: Murmurs, Rubs Telemetry: Positive: No significant arrhythmia Abdomen Exam: Positive: Normal bowel sounds, Soft; Negative: Tenderness, Hepatospenomegaly Extremity Exam: Positive: Edema (trace bipedal edema, and also in both hands), Tenderness (both shoulders), Swelling (shoulders); Negative: Clubbing, Cyanosis Skin Exam: Positive: Breakdown (left distal leg wound stage II ulcer 2cm X4 cm) Neuro Exam: Positive: Normal Speech, Strength at 5/5 X4 ext, Normal Tone Psych Exam: Positive: Memory Intact, Oriented x 3 Assessment /Plan Assessment Patient is 50 years old male with past history of coronary artery diseases, CABG, diabetes mellitus on insulin Lantus 50 units twice a day, hyperlipidemia presented to the hospital with lethargy and altered mental status. Patient was somnolent on admission and couldn't provide detailed history. According to the ER physician, patient was found on the street by EMS. Patient stated that he ran out of his diabetes medication for one week. He moved to [place] from [place] recently and doesn't have PCP. In ER patient was found to have white blood count of 31.4, hemoglobin 15.9, glucose level 1037, creatinine 2.6, potassium 5.6, blood osmolarity 375, lipase level 449. Head CT negative. Chest x -ray negative for acute infiltrate. Patient was admitted for DKA, sepsis. Sepsis with MSSA bacteremia, septic emboli to lungs, prostatic abscess, shoulder joints involvement likely source urinary tract / prostate abscess blood culture and urine culture MSSA . Negative starting 12/30/20 Echo done EF of 50% to 55%. LVH and grade 1 diastolic dysfunction. CONCEPCION no vegetations. EF of 65%, lipomatous hypertrophy of the atrial septum no RWMA. on Cefazolin patient will need 4 weeks of antibiotics ID following Bilateral shoulder pain and swelling MRI and xray of right shoulder noted soft tissues abscess/ septic joint/OM Planned for exploration in OR on 01/05/21 Started on Percocet for pain control s/p exploration of right shoulder. Prostate abscess S/p cystoscopy, right retrograde pyelogram, right ureteral stent placement, TURP prostate abscess on 12/31/20 urology following continue johns for about 2 weeks total from procedure. Bilateral hydronephrosis and hydroureter due to prostate abscess and trigonal inflammation Had cysto with left ureteral stent placement on 12/25/20. Cysto showed severe inflammation of the trigone causing occlusion of the left ureteral orifice. Again had cystoscopy, right retrograde pyelogram, right ureteral stent placement, TURP prostate abscess on 12/31/20 Now with left ureteral double J stent placed on 12/25/20 and right stent placement on 12/31/20 follow up with urology on discharge to follow up about the stents. Acute renal failure Most likely secondary to dehydration due to DKA and obstructive uropathy creatinine has now normalized. DKA on admission sugar > 1000 Secondary to running out of insulin and sepsis. now resolved Carb consistent diet and Fs AC and HS. Levemir and lispro Stage II ulcer on the left lateral supramalleolar region does not look infected. Appreciate/agree with wound care consult Hypernatremia resolved Coronary artery diseases Status post CABG in 2014. Continue atorvastatin, clopidogrel, metoprolol Elevated troponin On 12/24/20 troponin was elevated to 0.04 Patient denied any chest pain EKG negative for ischemic changes Troponin trended down likely due to sepsis and deandre, dka. HLD continue statin Hypertension stop lisinopril as had DEANDRE amlodipine and metoprolol. Plan/VTE VTE Prophylaxis Ordered?: Yes VS, I&O, 24H, Fishbone Vital Signs/I&O Vital Signs Date Time Temp Pulse Resp B/P (MAP) Pulse Ox O2 Delivery O2 Flow Rate FiO2 01/06/21 11:42 18 01/06/21 10:56 99.1 85 116/71 (86) 93 Nasal Cannula 01/06/21 08:15 3.0 I&O- Last 24 Hours up to 6 AM 01/06/21 06:00 Intake Total 3754 ml Output Total 2150 ml Balance 1604 ml Laboratory Data 24H LABS Laboratory Tests 2 01/05/21 17:39: Bedside Glucose (Misc Panel) 182H 01/05/21 18:47: Bedside Glucose (Misc Panel) 241H 01/05/21 20:33: Bedside Glucose (Misc Panel) 302H 01/06/21 05:31: Immature Granulocyte % (Auto) 0.5, Neutrophils (%) (Auto) 85.5H, Lymphocytes (%) (Auto) 7.7L, Monocytes (%) (Auto) 6.2, Eosinophils (%) (Auto) 0.0, Basophils (%) (Auto) 0.1, Neutrophils # (Auto) 12.8H, Lymphocytes # (Auto) 1.2L, Monocytes # (Auto) 0.9H, Eosinophils # (Auto) 0.0, Basophils # (Auto) 0.0, Nucleated Red Blood Cells % (auto) 0.0, Anion Gap 6L, Glomerular Filtration Rate 50.8L, Calcium Level 7.8L 01/06/21 12:12: Bedside Glucose (Misc Panel) 316H CBC/BMP Laboratory Tests 01/06/21 05:31 Microbiology Microbiology 01/05/21 Gram Stain - Final, Resulted 01/05/21 Wound Culture, Resulted Pending 01/05/21 Anaerobic Culture, Resulted Pending 01/05/21 Gram Stain - Final, Resulted 01/05/21 Wound Culture, Resulted Pending 01/05/21 Anaerobic Culture, Resulted Pending 01/05/21 Gram Stain - Final, Resulted 01/05/21 Wound Culture, Resulted Pending 01/05/21 Anaerobic Culture, Resulted Pending 01/05/21 Gram Stain - Final, Resulted 01/05/21 Wound Culture, Resulted Pending 01/05/21 Anaerobic Culture, Resulted Pending 01/05/21 Gram Stain - Final, Resulted 01/05/21 Wound Culture, Resulted Pending 01/05/21 Anaerobic Culture, Resulted Pending 01/05/21 Gram Stain - Final, Resulted 01/05/21 Wound Culture, Resulted Pending 01/05/21 Anaerobic Culture, Resulted Pending 01/01/21 Blood Culture - Final, Complete NO GROWTH AFTER 5 DAYS 12/31/20 Blood Culture - Final, Complete NO GROWTH AFTER 5 DAYS 12/30/20 Blood Culture - Final, Complete NO GROWTH AFTER 5 DAYS 12/28/20 Blood Culture - Final, Complete Staphylococcus Aureus 12/27/20 Blood Culture - Final, Complete NO GROWTH AFTER 5 DAYS AIDAN MEYERS MD Jan 06, 2021 13:04
--- NOTE | 2021-01-06 13:58 | RO ---
OPERATIVE NOTE DATE OF OPERATION: 01/05/2021 PREOPERATIVE DIAGNOSES: 1. Right posterior proximal arm abscess. 2. Infected subacromial space of right shoulder. 3. Septic acromioclavicular joint. POSTOPERATIVE DIAGNOSES: 1. Right posterior proximal arm abscess. 2. Infected subacromial space of right shoulder. 3. Septic acromioclavicular joint. PROCEDURES: 1. Arthroscopic right subacromial space irrigation and debridement. 2. Open irrigation and debridement of right acromioclavicular joint. 3. Open irrigation and debridement of right proximal posterior arm. FINDINGS: The patient had purulence and serosanguinous fluid from the right shoulder subacromial space, acromioclavicular joint and posterior arm. SURGEON: Porfirio Armstrong MD HEAD REFRIGERATING ENGINEER: None. SUPERVISING ATTENDING: Porfirio Armstrong MD ANESTHESIA: GETA INDICATIONS: This is a 50-year-old male with right shoulder pain. The patient had initially presented with complicated past medical history including coronary artery disease, previous CABG, diabetes mellitus on insulin Lantus 20 units per day, hyperlipidemia among other medical issues. Initially he presented to the [facility] on December, with lethargy. The patient has been treated for diabetic ketoacidosis as well as many other problems to include septic emboli. The patient described increasing weakness of the right upper extremity for the last 4-5 days. The patient received MRI of the right shoulder as well as chest which was indicative of fluid collection of the posterior right arm, AC joint and subacromial space. Given his history of multiple abscesses this was clinically significant with the aforementioned diagnoses. TOURNIQUET TIME: Unused. ESTIMATED BLOOD LOSS: 100 mL. IV FLUIDS: Please see anesthesia report. IV ANTIBIOTICS: Per Hospitalist regimen. IMPLANTS: None. SPECIMENS: Right acromioclavicular joint capsule, two aerobic and two anaerobic each for right subacromial space, right posterior arm and right AC joint. Bone biopsy also cultured from the right distal clavicle. DESCRIPTION OF PROCEDURE: The patient was met in the preoperative holding area where the patient's operative extremity was signed. The patient's consent was confirmed to be correct. The patient's identity was confirmed to be correct. The patient was transferred to the operating theater and he was placed supine in the regular beachchair position. Safety straps secured the patient to the bed. All bony prominences were well padded. Bilateral lower extremities had SCDs placed. Time out was called to confirm correct patient and correct operative extremity and correct consent. All staff was in agreement. The patient was then draped in usual sterile fashion. We began the procedure by establishing posterior and anterior portals to the right shoulder. These were used for the subacromial decompression and irrigation and debridement. I then made a lateral arthroscopic portal incision to place our shaver from the lateral position and perform thorough subacromial decompression debriding the bursitis within the subacromial space, thoroughly irrigating with 6 liters of normal saline. At the conclusion of the subacromial irrigation and debridement I then removed all arthroscopic instrumentation from the subacromial space. I then turned attention to right acromioclavicular joint. I made a 1 inch longitudinal incision over the right AC joint incising the skin sharply with a scalpel. I then identified the AC joint and sharply incised the superior capsule overlying the acromioclavicular joint. This point in time I was able to fully see the distal clavicle and took bone biopsy which corresponded to MRI imaging at the anterior margin of the distal clavicle. Once this was completed I then copiously irrigated the right AC joint with 6 liters of normal saline. I then closed the capsule loosely approximating the capsular edges using #0 PDS suture. I then loosely approximated skin with 3-0 nylon suture. I then turned my attention to the posterior aspect of the patient's right proximal arm. I extended the posterior portal incision approximately 2 inches. I made a second more distal incision about 4 inches distal to the R posterior proximal arm incision. We then cultured the posterior aspect of the arm for aerobic and anaerobic cultures. I placed hemostat and connected the two surgical skin incisions and copiously irrigated the posterior arm. I appreciated purulent serosanguinous fluid expressed from the surgical incisions. I was able to breakup any loculations using my finger bluntly. I then copiously irrigated using 9 liters of normal saline to the right proximal and posterior right arm. At the conclusion of this I then closed all surgical incisions using running 3-0 nylon suture to include the two posterior incisions and used the arthroscopic portal incision to close all arthroscopic percutaneous incisions. At this point in time I placed Xeroform over the surgical incisions followed by 4 x 4s, ABD pads and Metapore tape. The patient's right upper extremity was then placed in a sling. The patient was extubated without complication and transported to the postanesthesia care unit. At this point in time we will continue to observe the 10 cultures that were taken from the operating room as described above. Two cultures were taken from the subacromial space, one aerobic and one anaerobic, four cultures were taken from the right AC joint and four cultures of right proximal posterior arm. We also took bone biopsy which had radiographic evidence of osteomyelitis. These will continue to be trended and observed for any positive cultures. The patient will be weightbearing as tolerated and range of motion as tolerated to the right upper extremity. He does have a sling for comfort. The patient's care will be transferred to the Hospitalist service and Dr. Funes will continue the IV antibiotics as deemed appropriate. The patient will follow up with orthopedic clinic at [facility] on January, for postoperative wound check. HUMBERTO
[2021-01-06 14:00] VITALS: BP 135/89
[2021-01-06] MEDS ORDERED: LIDOCAINE 1% MDV 20ML VIAL As Ordered ONE (15:43)
[2021-01-06] MEDS ORDERED: SODIUM CHLORIDE 0.9% INJ 10 ML SYR IV PRN (17:20)
[2021-01-06] MEDS: SODIUM CHLORIDE 0.9% INJ 10 ML SYR IV SCH ×2 (18:00→18:02)
[2021-01-06 22:00] VITALS: BP 172/84
[2021-01-07] MEDS: ACETAMINOPHEN 500 MG TAB PO PRN (00:24)
[2021-01-07] MEDS: ceFAZolin SOD 2 GM in IV 1 EA IV SCH ×3 (01:28→18:22)
[2021-01-07 02:00] VITALS: BP 162/87
[2021-01-07] MEDS: SODIUM CHLORIDE 0.9% INJ 10 ML SYR IV PRN ×2 (02:25→12:09)
[2021-01-07] MEDS: SODIUM CHLORIDE 0.9% INJ 10 ML SYR IV SCH ×3 (05:28→18:21)
[2021-01-07 06:00] VITALS: BP 166/89
[2021-01-07] MEDS: **hydrALAZINE HCL** 25 MG TAB PO SCH ×5 (06:00→23:56)
[2021-01-07 07:46] LABS: HEMATOCRIT 25.1 % (42.0-52.0); HEMOGLOBIN 7.7 g/dl (13.5-17.5); MEAN CORPUSCULAR HEMOGLOBIN 27.8 pg (27.0-33.0); MEAN CORPUSCULAR HGB CONC 30.7 g/dl (32.0-36.5); MEAN CORPUSCULAR VOLUME 90.6 fl (80.0-96.0); PLATELET COUNT, AUTOMATED 477 10^3/uL (150-450); RED BLOOD COUNT 2.77 10^6/uL (4.30-6.10); WHITE BLOOD COUNT 13.2 10^3/uL (4.0-10.0)
--- NOTE | 2021-01-07 07:57 | IPNPDOC ---
Subjective Date Seen The patient was seen on 01/07/21. Subjective Chief Complaint/HPI Reports left shoulder is a little better and he is able to move the left upper extremity better. No fever or chill. Objective Physical Examination General Exam: Positive: Alert, Cooperative, No Acute Distress Eye Exam: Positive: Conjunctiva & lids normal, EOMI ENT Exam: Positive: Atraumatic, Mucous membr. moist/pink, Pharynx Normal Neck Exam: Positive: Supple; Negative: JVD Chest Exam: Positive: Normal air movement, Other (bibasal crackles. ); Negative: Rhonchi, Wheezing Heart Exam: Positive: Rate Normal, Regular Rhythm, Normal S1, Normal S2; Negative: Murmurs, Rubs Telemetry: Positive: No significant arrhythmia Abdomen Exam: Positive: Normal bowel sounds, Soft; Negative: Tenderness, Hepatospenomegaly Extremity Exam: Positive: Edema (trace bipedal edema, and also in both hands), Tenderness (both shoulders), Swelling (shoulders); Negative: Clubbing, Cyanosis Skin Exam: Positive: Breakdown (left distal leg wound stage II ulcer 2cm X4 cm) Neuro Exam: Positive: Normal Speech, Strength at 5/5 X4 ext, Normal Tone Psych Exam: Positive: Memory Intact, Oriented x 3 Assessment /Plan Assessment Patient is 50 years old male with past history of coronary artery diseases, CABG, diabetes mellitus on insulin Lantus 50 units twice a day, hyperlipidemia presented to the hospital with lethargy and altered mental status. Patient was somnolent on admission and couldn't provide detailed history. According to the ER physician, patient was found on the street by EMS. Patient stated that he ran out of his diabetes medication for one week. He moved to [place] from [place] recently and doesn't have PCP. In ER patient was found to have white blood count of 31.4, hemoglobin 15.9, glucose level 1037, creatinine 2.6, potassium 5.6, blood osmolarity 375, lipase level 449. Head CT negative. Chest x-ray negative for acute infiltrate. Patient was admitted for DKA, sepsis. He was found to have MSSA bacteremia, septic emboli to the lungs likely source from prostate abscess. 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 He went on the develop right acromioclavicular joint and right proximal arm abscess. Sepsis with MSSA bacteremia, septic emboli to lungs, prostatic abscess, right prox arm abscess, right acromioclavicular joint abscess. likely source urinary tract / prostate abscess blood culture and urine culture MSSA . Negative starting 12/30/20 Echo done EF of 50% to 55%. LVH and grade 1 diastolic dysfunction. CONCEPCION no vegetations. EF of 65%, lipomatous hypertrophy of the atrial septum no RWMA. on Cefazolin patient will need 4 weeks of antibiotics, Has PICC line ID following Right acromioclavicular joint abscess and possible OM of the distal clavicle/ Right prox arm abscess. exploration in OR, I&D on 01/05/21 Started on Percocet for pain control May need MRI of the left shoulder also if it continues to bother him Prostate abscess S/p cystoscopy, right retrograde pyelogram, right ureteral stent placement, TURP prostate abscess on 12/31/[address] Saleh. continue johns for about 2 weeks total from procedure. Bilateral hydronephrosis and hydroureter due to prostate abscess and trigonal inflammation Had cysto with left ureteral stent placement on 12/25/20. Cysto showed severe inflammation of the trigone causing occlusion of the left ureteral orifice. Again had cystoscopy, right retrograde pyelogram, right ureteral stent placement, TURP prostate abscess on 12/31/20 Now with left ureteral double J stent placed on 12/25/20 and right stent placement on 12/31/20 follow up with urology on discharge to follow up about the stents. Anemia Hb has been slowly down trending On admission i think the hb was higher than his usual numbers due to severe dehydration. Now lower likely due to severe infection, multiple surgical procedures and phlebotomy no bleeding PRBC transfusion as needed. Acute renal failure Most likely secondary to dehydration due to DKA and obstructive uropathy creatinine has now close to normal. DKA on admission sugar > 1000 Secondary to running out of insulin and sepsis. now resolved Carb consistent diet and Fs AC and HS. Levemir and lispro Stage II ulcer on the left lateral supramalleolar region does not look infected. Appreciate/agree with wound care consult Hypernatremia resolved Coronary artery diseases Status post CABG in 2014. Continue atorvastatin, clopidogrel, metoprolol Elevated troponin On 12/24/20 troponin was elevated to 0.04 Patient denied any chest pain EKG negative for ischemic changes Troponin trended down likely due to sepsis and deandre, dka. HLD continue statin Hypertension stop lisinopril as had DEANDRE amlodipine and metoprolol. Plan/VTE VTE Prophylaxis Ordered?: Yes VS, I&O, 24H, Fishbone Vital Signs/I&O Vital Signs Date Time Temp Pulse Resp B/P (MAP) Pulse Ox O2 Delivery O2 Flow Rate FiO2 01/07/21 06:00 154/82 01/07/21 02:00 97.9 78 18 92 Nasal Cannula 3.0 I&O- Last 24 Hours up to 6 AM 01/07/21 06:00 Intake Total 2270 ml Output Total 2000 ml Balance 270 ml Laboratory Data 24H LABS Laboratory Tests 2 01/06/21 12:12: Bedside Glucose (Misc Panel) 316H 01/06/21 17:24: Bedside Glucose (Misc Panel) 242H 01/06/21 20:07: Bedside Glucose (Misc Panel) 271H 01/07/21 06:28: CBC/BMP Microbiology Microbiology 01/05/21 Gram Stain - Final, Complete 01/05/21 Wound Culture - Final, Complete 01/05/21 Anaerobic Culture - Final, Complete 01/05/21 Gram Stain - Final, Complete 01/05/21 Wound Culture - Final, Complete 01/05/21 Anaerobic Culture - Final, Complete 01/05/21 Gram Stain - Final, Complete 01/05/21 Wound Culture - Final, Complete 01/05/21 Anaerobic Culture - Final, Complete 01/05/21 Gram Stain - Final, Complete 01/05/21 Wound Culture - Final, Complete 01/05/21 Anaerobic Culture - Final, Complete 01/05/21 Gram Stain - Final, Complete 01/05/21 Wound Culture - Final, Complete 01/05/21 Anaerobic Culture - Final, Complete 01/05/21 Gram Stain - Final, Complete 01/05/21 Wound Culture - Final, Complete 01/05/21 Anaerobic Culture - Final, Complete 01/01/21 Blood Culture - Final, Complete NO GROWTH AFTER 5 DAYS 12/31/20 Blood Culture - Final, Complete NO GROWTH AFTER 5 DAYS 12/30/20 Blood Culture - Final, Complete NO GROWTH AFTER 5 DAYS 12/28/20 Blood Culture - Final, Complete Staphylococcus Aureus AIDAN MEYERS MD Jan 07, 2021 07:57
[2021-01-07 08:05] LABS: BLOOD UREA NITROGEN 36 MG/DL (7-18); CALCIUM LEVEL 7.7 MG/DL (8.5-10.1); CARBON DIOXIDE LEVEL 25 MEQ/L (21-32); CHLORIDE LEVEL 109 MEQ/L (98-107); CREATININE FOR GFR 1.27 MG/DL (0.70-1.30); GLOMERULAR FILTRATION RATE > 60.0 (>60); GLUCOSE, FASTING 130 MG/DL (70-100); POTASSIUM SERUM 4.5 MEQ/L (3.5-5.1); SODIUM LEVEL 138 MEQ/L (136-145)
[2021-01-07] MEDS: MOM 30ML SUSPENSION UDC PO SCH (09:00)
[2021-01-07] MEDS: LEVEMIR (INSULIN DETEMIR) 1 UNITS/0.01ML SC SCH ×2 (09:00→20:22)
[2021-01-07 09:09] LABS: C REACTIVE PROTEIN QUANTITATIV 9.12 MG/DL (0.00-0.30)
[2021-01-07] MEDS: PERCOCET 5MG/325MG TAB PO PRN ×2 (09:16→20:24)
[2021-01-07] MEDS: CLOPIDOGREL 75 MG TAB PO SCH (09:17)
[2021-01-07] MEDS: PANTOPRAZOLE 40MG TAB (PROTONIX) PO SCH (09:17)
[2021-01-07] MEDS: METOPROLOL TART 25 MG TABLET PO SCH ×2 (09:17→20:22)
[2021-01-07] MEDS: ATORVASTATIN 20 MG TAB PO SCH (09:17)
[2021-01-07] MEDS: SENOKOT S TAB PO SCH ×2 (09:18→20:21)
[2021-01-07] MEDS: HumaLOG INSULIN (NovoLOG) PER UNIT SC SCH ×4 (09:18→20:12)
[2021-01-07] MEDS: SANTYL OINT 30GM TOP SCH (09:20)
[2021-01-07 10:00] VITALS: BP 189/81
--- NOTE | 2021-01-07 13:03 | REP ---
PROCEDURE NAME: PICC LINE INSERTION W/SITERITE CLINICAL INFORMATION: prolonged antibiotic therapy. COMPARISON: None. PROCEDURE DESCRIPTION: The procedure was performed by KELSEY Velez, under the direct supervision of Dr. Ann. The risks and benefits of the procedure were explained to the patient and an informed consent was obtained both verbally and written. Directly prior to the start of the procedure a formal time-out was completed in the procedure room. The left basilic vein was localized using ultrasound guidance. The skin was prepped and draped in sterile fashion. One mL of 1% lidocaine 10 mg/mL was used as a local anesthetic. Using ultrasound guidance the left basilic vein was cannulated, and a 0.018 guidewire was inserted and advanced to the level of SVC using fluoroscopic guidance. The needle was removed and a 5.5 Dutch dilator and peel-away sheath was inserted over the guidewire. A 5.5 Dutch dual lumen catheter was cut to a length of 45 cm. The dilator was removed and the catheter was inserted over the guidewire with the tip ending at the level of the SVC. The peel-away sheath was removed and the catheter was flushed with heparinized saline as per hospital protocol. The catheter was affixed to the skin and a sterile dressing was applied. The patient tolerated the procedure well and there were no immediate complications. CONCLUSION: PICC line insertion into the left basilic vein. 0.1 minutes of fluoroscopy time was utilized for this procedure. Some fluoroscopic images are performed with last image hold technology. These images require no additional radiation. <Electronically signed by Edwina Arenas > 01/06/21 1706 <Electronically signed by Ricardo Ann > 01/07/21 1300
[2021-01-07 14:00] VITALS: BP 152/88
--- NOTE | 2021-01-07 15:54 | IPN ---
PROGRESS NOTE DATE: 01/07/2021 SUBJECTIVE: Bernardo seems to be doing well. He is still sleepy and wakes up, but is not very active doing physical therapy. He states his shoulder pain is better. He still has oxygen on. He has no cough or shortness of breath. No nausea, vomiting, or diarrhea. OBJECTIVE: GENERAL: Alert and oriented x3. VITAL SIGNS: Temperature is 96.7, pulse 104, respirations 20, blood pressure 189/81, O2 sat 94% on 2 liters nasal cannula. HEART: Normal S1, S2, tachycardic. No murmurs, rubs, or gallops appreciated. LUNGS: Diminished breath sounds at the bases, but clear. ABDOMEN: Soft, distended, and nontender. GENITOURINARY: Catheter in place with clear urine. EXTREMITIES: Trace ankle edema bilaterally. LABORATORY DATA: White count 13.2, hemoglobin 7.7, hematocrit 25.1, platelets 477,000. Sodium 138, potassium 4.5, chloride 109, bicarb 25, BUN 36, glucose 130, calcium 7.7, CRP 9.12 down from 33.7 on admission. IMPRESSION: Staphylococcus aureus bacteremia with sepsis from prostatic abscess/ bilateral hydronephrosis and seeding of the right shoulder status post debridement. Patient on IV cefazolin 2 grams every eight hours. He has undergone incision and drainage (I&D) of the prostate, bilateral stent placement for hydronephrosis, and incision and drainage (I&D) of the right shoulder. He remains on oxygen for hypoxia from septic emboli to the lung. PLAN: A peripherally inserted central catheter (PICC) line has been placed in his left basilic vein. He continues on IV cefazolin 2 grams every eight hours. Patient clinically has improved. He needs to be pushed to do more physical therapy. He may be a good candidate for acute rehabilitation. He will need IV antibiotics with plan to continue IV antibiotics four weeks from his right shoulder surgery for a total of four weeks for septic arthritis, which would be February 02. I do not think the patient will be able to do home IV antibiotics on his own and I would recommend rehabilitation placement. He has a history of noncompliance and had been off medications and insulin for at least six months, not establishing care with primary since his move from [place]. HUMBERTO
[2021-01-07 18:00] VITALS: BP 150/86
[2021-01-07 22:00] VITALS: BP 172/92
[2021-01-08] MEDS: ceFAZolin SOD 2 GM in IV 1 EA IV SCH ×3 (02:40→18:16)
[2021-01-08] MEDS: SODIUM CHLORIDE 0.9% INJ 10 ML SYR IV SCH ×2 (05:17→18:05)
[2021-01-08 05:19] VITALS: BP 198/86
[2021-01-08] MEDS: **hydrALAZINE HCL** 25 MG TAB PO SCH ×3 (05:19→18:16)
[2021-01-08 06:13] LABS: BLOOD UREA NITROGEN 25 MG/DL (7-18); CALCIUM LEVEL 8.2 MG/DL (8.5-10.1); CARBON DIOXIDE LEVEL 26 MEQ/L (21-32); CHLORIDE LEVEL 108 MEQ/L (98-107); CREATININE FOR GFR 1.12 MG/DL (0.70-1.30); GLOMERULAR FILTRATION RATE > 60.0 (>60); GLUCOSE, FASTING 125 MG/DL (70-100); POTASSIUM SERUM 4.1 MEQ/L (3.5-5.1); SODIUM LEVEL 140 MEQ/L (136-145)
[2021-01-08] MEDS: LEVEMIR (INSULIN DETEMIR) 1 UNITS/0.01ML SC SCH ×2 (09:00→22:00)
[2021-01-08] MEDS: MOM 30ML SUSPENSION UDC PO SCH ×3 (09:14→14:06)
[2021-01-08] MEDS: HumaLOG INSULIN (NovoLOG) PER UNIT SC SCH ×4 (09:14→21:00)
[2021-01-08] MEDS: PANTOPRAZOLE 40MG TAB (PROTONIX) PO SCH (09:15)
[2021-01-08] MEDS: ATORVASTATIN 20 MG TAB PO SCH (09:15)
[2021-01-08] MEDS: SENOKOT S TAB PO SCH ×2 (09:15→22:01)
[2021-01-08] MEDS: CLOPIDOGREL 75 MG TAB PO SCH (09:15)
[2021-01-08] MEDS: METOPROLOL TART 25 MG TABLET PO SCH ×2 (09:16→22:01)
[2021-01-08] MEDS: PERCOCET 5MG/325MG TAB PO PRN ×3 (09:16→22:48)
[2021-01-08] MEDS: SANTYL OINT 30GM TOP SCH (09:17)
[2021-01-08] MEDS: SODIUM CHLORIDE 0.9% INJ 10 ML SYR IV PRN (10:30)
[2021-01-08 12:13] VITALS: BP 159/84
--- NOTE | 2021-01-08 13:47 | IPNPDOC ---
Text Note Date of Service The patient was seen on 01/08/21. NOTE Subjective Chief Complaint/HPI Patient does not have any complaints at this time. The pain appears to be fairly well controlled this time. He understands that he will have to be on prolonged antibiotics, and that he will still have to have a catheter in place for at least another week. Otherwise, he does not have any other questions or concerns at this time. Objective Objective Physical Examination General Exam: Positive: Alert, Cooperative, No Acute Distress Eye Exam: Positive: Conjunctiva & lids normal, EOMI ENT Exam: Positive: Atraumatic, Mucous membr. moist/pink, Pharynx Normal Neck Exam: Positive: Supple; Negative: JVD Chest Exam: Positive: Normal air movement, Other (bibasal crackles. ); Negative: Rhonchi, Wheezing Heart Exam: Positive: Rate Normal, Regular Rhythm, Normal S1, Normal S2; Negative: Murmurs, Rubs Telemetry: Positive: No significant arrhythmia Abdomen Exam: Positive: Normal bowel sounds, Soft; Negative: Tenderness, Hepatospenomegaly Extremity Exam: Tenderness (both shoulders), Swelling (shoulders); Negative: Clubbing, Cyanosis Skin Exam: Positive: Breakdown (left distal leg wound stage II ulcer 2cm X4 cm) Neuro Exam: Positive: Normal Speech, Strength at 5/5 X4 ext, Normal Tone Psych Exam: Positive: Memory Intact, Oriented x 3 Assessment/Plan Assessment /Plan Assessment Patient is 50 years old male with past history of coronary artery diseases, CABG, diabetes mellitus on insulin Lantus 50 units twice a day, hyperlipidemia presented to the hospital with lethargy and altered mental status. Patient was somnolent on admission and couldn't provide detailed history. According to the ER physician, patient was found on the street by EMS. Patient stated that he ran out of his diabetes medication for one week. He moved to [place] from [place] recently and doesn't have PCP. In ER patient was found to have white blood count of 31.4, hemoglobin 15.9, glucose level 1037, creatinine 2.6, potassium 5.6, blood osmolarity 375, lipase level 449. Head CT negative. Chest x-ray negative for acute infiltrate. Patient was admitted for DKA, sepsis. He was found to have MSSA bacteremia, septic emboli to the lungs likely source from prostate abscess. 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 He went on the develop right acromioclavicular joint and right proximal arm abscess. Sepsis with MSSA bacteremia, septic emboli to lungs, prostatic abscess, right prox arm abscess, right acromioclavicular joint abscess. likely source urinary tract / prostate abscess blood culture and urine culture MSSA . Negative starting 12/30/20 Echo done EF of 50% to 55%. LVH and grade 1 diastolic dysfunction. CONCEPCION no vegetations. EF of 65%, lipomatous hypertrophy of the atrial septum no RWMA. on Cefazolin patient will need 4 weeks of antibiotics, Has PICC line ID following Right acromioclavicular joint abscess and possible OM of the distal clavicle/ Right prox arm abscess. exploration in OR, I&D on 01/05/21 Started on Percocet for pain control Prostate abscess S/p cystoscopy, right retrograde pyelogram, right ureteral stent placement, TURP prostate abscess on 12/31/[address] Saleh. continue johns for about 2 weeks total from procedure. Bilateral hydronephrosis and hydroureter due to prostate abscess and trigonal inflammation Had cysto with left ureteral stent placement on 12/25/20. Cysto showed severe inflammation of the trigone causing occlusion of the left ureteral orifice. Again had cystoscopy, right retrograde pyelogram, right ureteral stent placement, TURP prostate abscess on 12/31/20 Now with left ureteral double J stent placed on 12/25/20 and right stent placement on 12/31/20 follow up with urology on discharge to follow up about the stents. Anemia Hb has been slowly down trending On admission i think the hb was higher than his usual numbers due to severe dehydration. Now lower likely due to severe infection, multiple surgical procedures and phlebotomy no bleeding PRBC transfusion as needed. Acute renal failure Most likely secondary to dehydration due to DKA and obstructive uropathy creatinine has now close to normal. DKA on admission sugar > 1000 Secondary to running out of insulin and sepsis. now resolved Carb consistent diet and Fs AC and HS. Levemir and lispro Stage II ulcer on the left lateral supramalleolar region does not look infected. Appreciate/agree with wound care consult Hypernatremia resolved Coronary artery diseases Status post CABG in 2014. Continue atorvastatin, clopidogrel, metoprolol Elevated troponin On 12/24/20 troponin was elevated to 0.04 Patient denied any chest pain EKG negative for ischemic changes Troponin trended down likely due to sepsis and silvino, dka. HLD continue statin Hypertension Acute kidney injury is now resolved, but his blood pressures are elevated. We'll restart him on lisinopril 20 mg daily Continue amlodipine and metoprolol. DISPOSITION: Due to elevated blood pressures, will start him on lisinopril 20 mg daily. He will need to keep the Johns in for at least another week. He also will need to be on antibiotics for the next 4 weeks as well. Rehab upon discharge is recommended for everything he has going on. VS,Fishbone, I+O VS, Fishbone, I+O Laboratory Tests 01/08/21 05:24 Vital Signs Date Time Temp Pulse Resp B/P (MAP) Pulse Ox O2 Delivery O2 Flow Rate FiO2 01/08/21 12:13 90 159/84 (109) 01/08/21 10:00 20 Nasal Cannula 3.0 01/08/21 09:16 94 01/08/21 05:19 97.2 I&O- Last 24 Hours up to 6 AM 01/08/21 06:00 Intake Total 1750 ml Output Total 3500 ml Balance -1750 ml SAMANTHA PELAYO DO January 08, 2021 13:47
[2021-01-08 14:00] VITALS: BP 154/85
[2021-01-08 18:06] VITALS: BP 154/86
[2021-01-08 22:00] VITALS: BP 159/88
[2021-01-09] MEDS: ceFAZolin SOD 2 GM in IV 1 EA IV SCH ×3 (01:03→18:01)
[2021-01-09] MEDS: **hydrALAZINE HCL** 25 MG TAB PO SCH ×4 (01:03→18:02)
[2021-01-09] MEDS: PERCOCET 5MG/325MG TAB PO PRN ×2 (05:57→20:08)
[2021-01-09] MEDS: SODIUM CHLORIDE 0.9% INJ 10 ML SYR IV SCH ×2 (05:57→18:03)
[2021-01-09 06:00] VITALS: BP 186/96
[2021-01-09 06:47] LABS: BLOOD UREA NITROGEN 20 MG/DL (7-18); CALCIUM LEVEL 8.1 MG/DL (8.5-10.1); CARBON DIOXIDE LEVEL 25 MEQ/L (21-32); CHLORIDE LEVEL 108 MEQ/L (98-107); CREATININE FOR GFR 1.06 MG/DL (0.70-1.30); GLOMERULAR FILTRATION RATE > 60.0 (>60); GLUCOSE, FASTING 129 MG/DL (70-100); SODIUM LEVEL 139 MEQ/L (136-145)
[2021-01-09] MEDS: MOM 30ML SUSPENSION UDC PO SCH (07:50)
[2021-01-09] MEDS: CLOPIDOGREL 75 MG TAB PO SCH (07:50)
[2021-01-09] MEDS: ATORVASTATIN 20 MG TAB PO SCH (07:50)
[2021-01-09] MEDS: SENOKOT S TAB PO SCH ×2 (07:50→20:05)
[2021-01-09] MEDS: PANTOPRAZOLE 40MG TAB (PROTONIX) PO SCH (07:50)
[2021-01-09] MEDS: METOPROLOL TART 25 MG TABLET PO SCH ×2 (07:50→20:06)
[2021-01-09] MEDS: LEVEMIR (INSULIN DETEMIR) 1 UNITS/0.01ML SC SCH ×2 (07:51→20:07)
[2021-01-09] MEDS: SODIUM CHLORIDE 0.9% INJ 10 ML SYR IV PRN ×2 (07:51→10:23)
[2021-01-09] MEDS: HumaLOG INSULIN (NovoLOG) PER UNIT SC SCH ×4 (07:52→21:00)
[2021-01-09] MEDS: SANTYL OINT 30GM TOP SCH (07:53)
[2021-01-09 08:05] LABS: MAGNESIUM LEVEL 1.9 MG/DL (1.8-2.4)
[2021-01-09 08:20] LABS: BASO % 0.3 % (0.0-1.0); EOS # 0.3 10^3/uL (0.0-0.5); HEMATOCRIT 24.9 % (42.0-52.0); HEMOGLOBIN 7.7 g/dl (13.5-17.5); LYMPH # 2.2 10^3/uL (1.5-5.0); LYMPH % 17.6 % (24.0-44.0); MEAN CORPUSCULAR HEMOGLOBIN 27.8 pg (27.0-33.0); MEAN CORPUSCULAR HGB CONC 30.9 g/dl (32.0-36.5); MEAN CORPUSCULAR VOLUME 89.9 fl (80.0-96.0); MONO # 1.1 10^3/uL (0.0-0.8); MONO % 9.1 % (2.0-8.0); NEUTROPHILS # 8.7 10^3/uL (1.5-8.5); NEUTROPHILS % 70.6 % (36.0-66.0); PLATELET COUNT, AUTOMATED 423 10^3/uL (150-450); RED BLOOD COUNT 2.77 10^6/uL (4.30-6.10); WHITE BLOOD COUNT 12.3 10^3/uL (4.0-10.0)
--- NOTE | 2021-01-09 11:00 | IPNPDOC ---
Text Note Date of Service The patient was seen on 01/09/21. NOTE Subjective: Patient is a 50-year-old male with a PMHx of CAD s/p CABG, IDDM2, DLP, resented to the emergency room with confusion. Patient was brought to the hospital via EMS. Upon arrival to emergency room, patient was found to be in DKA and was admitted to the ICU for further management. Patient subsequently was found to have MSSA bacteremia, suspected to be from a prostate abscess. This was compensated with septic emboli to the lungs and to his right acromioclavicular joint and right proximal arm abscess. 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 Patient had orthopedic surgery. See his right shoulder for incision and drainage. Patient was seen and examined at the bedside. Patient denies any chest pain, shortness of breath or palpitations. Has not spent any nausea, vomiting or abdominal pain. Reports that his right shoulder is feeling slightly better. Denies any diarrhea or constipation. [place] catheter remains in place. Objective: Vitals (See below) General: Lying in bed, no acute distress, comfortable, AAOx3 HEENT: NC, AT CVS: +S1S2 Lungs: Fair air entry b/l, -w/r/r Abdomen: Soft, ND, NT Extremities: - Edema, - Calf tenderness Assessment and plan: s/p Sepsis - 2/2 MSSA bacteremia with septic emboli to lungs, prostate abscess, R proximal arm abscess, R acromioclavicular joint abscess - Patient is hemodynamically stable and afebrile - Leukocytosis is improving / CRP relatively stable - Blood cultures 12/28: MSSA; Negative starting on 12/30 - CONCEPCION no vegetations. EF of 65%, lipomatous hypertrophy of the atrial septum no RWMA - c/w Cefazolin for 4 weeks; PICC line in place - ID on consultation; appreciate their input s/p Right acromioclavicular joint abscess and possible OM of the distal clavicle/ Right prox arm abscess. - Has had Exploration in OR, I&D on 01/05/21 - c/w Percocet for pain control Prostate abscess - s/p cystoscopy, right retrograde pyelogram, right ureteral stent placement, TURP prostate abscess on 12/31/20 - Urology on consultation - Richmond to remain in place 2 weeks postoperatively Bilateral hydronephrosis and hydroureter - 2/2 prostate abscess and trigonal inflammation - Had cysto with left ureteral stent placement on 12/25/20. Cysto showed severe inflammation of the trigone causing occlusion of the left ureteral orifice. - Again had cystoscopy, right retrograde pyelogram, right ureteral stent placement, TURP prostate abscess on 12/31/20 - Patient has left ureteral double J stent placed on 12/25/20 and right stent placement on 12/31/20 - Urology on consultation Anemia - Hg has been slowly down trending - No evidence of bleed - Will check iron panel, b12, folate, LDH / Haptoglobin, Reticulocyte count - Will continue to follow trend and transfuse as needed s/p Acute renal failure - Renal function has normalized IDDM2 - s/p DKA and Insulin drip - c/w Levemir and ISS Stage II ulcer on the left lateral supramalleolar region - c/w Wound care s/p Hypernatremia CAD s/p CABG (2014) - c/w Atorvastatin, Clopidogrel, Metoprolol Elevated troponin - likely 2/2 demand ischemia - Denied any chest pain - EKG reviewed DLP - c/w Atorvastatin Hypertension - BP improved - c/w Amlodipine, Metoprolol, Hydralazine - BP better controlled with Lisinopril GERD - c/w Protonix DVT prophylaxis - c/w TEDs/Sequentials Disposition: - Awaiting clinical improvement - will likely require rehabilitation moving forward Santhosh SORIANO, I+O VSSanthosh, I+O Laboratory Tests 01/09/21 06:03 01/09/21 07:48 Vital Signs Date Time Temp Pulse Resp B/P (MAP) Pulse Ox O2 Delivery O2 Flow Rate FiO2 01/09/21 07:49 95 149/85 01/09/21 06:27 20 Room Air 01/09/21 06:00 97.1 95 2.0 I&O- Last 24 Hours up to 6 AM 01/09/21 06:00 Intake Total 1990 ml Output Total 2400 ml Balance -410 ml MONIKA SARGENT MD January 09, 2021 11:00
[2021-01-09 11:28] LABS: FERRITIN 613 NG/ML (26-388); IRON (FE) 22 UG/DL (65-175); LDH LACTATE DEHYDROGENASE 205 U/L (87-241); PERCENT SATURATION 15.7 % (19.7-50.0); TOTAL IRON BINDING CAPACITY 140 UG/DL (250-450)
[2021-01-09 14:00] VITALS: BP 157/84
[2021-01-09 22:00] VITALS: BP 146/80
[2021-01-10] MEDS: ceFAZolin SOD 2 GM in IV 1 EA IV SCH ×3 (01:57→18:20)
[2021-01-10] MEDS: **hydrALAZINE HCL** 25 MG TAB PO SCH ×4 (05:23→18:19)
[2021-01-10] MEDS: SODIUM CHLORIDE 0.9% INJ 10 ML SYR IV SCH ×2 (05:23→18:18)
[2021-01-10 05:53] LABS: BASO # 0.1 10^3/uL (0.0-0.2); BASO % 0.5 % (0.0-1.0); EOS # 0.4 10^3/uL (0.0-0.5); EOS % 3.1 % (0.0-3.0); HEMATOCRIT 24.7 % (42.0-52.0); HEMOGLOBIN 7.7 g/dl (13.5-17.5); LYMPH # 1.9 10^3/uL (1.5-5.0); MEAN CORPUSCULAR HGB CONC 31.2 g/dl (32.0-36.5); MEAN CORPUSCULAR VOLUME 89.8 fl (80.0-96.0); MONO # 1.2 10^3/uL (0.0-0.8); MONO % 10.3 % (2.0-8.0); NEUTROPHILS # 7.7 10^3/uL (1.5-8.5); NEUTROPHILS % 68.6 % (36.0-66.0); PLATELET COUNT, AUTOMATED 416 10^3/uL (150-450); RED BLOOD COUNT 2.75 10^6/uL (4.30-6.10); WHITE BLOOD COUNT 11.2 10^3/uL (4.0-10.0)
[2021-01-10 06:16] LABS: ALBUMIN 1.2 GM/DL (3.2-5.2); ALT/SGPT 8 U/L (12-78); BILIRUBIN,TOTAL 0.4 MG/DL (0.2-1.0); BLOOD UREA NITROGEN 18 MG/DL (7-18); BLOOD UREA NITROGEN 19 MG/DL (7-18); CALCIUM LEVEL 8.1 MG/DL (8.5-10.1); CALCIUM LEVEL 8.3 MG/DL (8.5-10.1); CARBON DIOXIDE LEVEL 25 MEQ/L (21-32); CARBON DIOXIDE LEVEL 26 MEQ/L (21-32); CHLORIDE LEVEL 106 MEQ/L (98-107); CREATININE FOR GFR 1.04 MG/DL (0.70-1.30); CREATININE FOR GFR 1.08 MG/DL (0.70-1.30); GLOMERULAR FILTRATION RATE > 60.0 (>60); GLUCOSE, FASTING 148 MG/DL (70-100); GLUCOSE, FASTING 150 MG/DL (70-100); MAGNESIUM LEVEL 1.9 MG/DL (1.8-2.4); POTASSIUM SERUM 4.1 MEQ/L (3.5-5.1); SODIUM LEVEL 137 MEQ/L (136-145); SODIUM LEVEL 138 MEQ/L (136-145)
[2021-01-10 08:05] LABS: ERYTHROCYTE SEDIMENTATION RATE 127 mm/hr (0-15)
[2021-01-10] MEDS: SENOKOT S TAB PO SCH ×2 (08:45→23:45)
[2021-01-10] MEDS: PERCOCET 5MG/325MG TAB PO PRN ×2 (08:45→19:37)
[2021-01-10] MEDS: PANTOPRAZOLE 40MG TAB (PROTONIX) PO SCH (08:45)
[2021-01-10] MEDS: ATORVASTATIN 20 MG TAB PO SCH (08:45)
[2021-01-10] MEDS: HumaLOG INSULIN (NovoLOG) PER UNIT SC SCH ×4 (08:46→21:00)
[2021-01-10] MEDS: CLOPIDOGREL 75 MG TAB PO SCH (08:46)
[2021-01-10] MEDS: METOPROLOL TART 25 MG TABLET PO SCH ×2 (08:46→23:46)
[2021-01-10] MEDS: MOM 30ML SUSPENSION UDC PO SCH (08:46)
[2021-01-10] MEDS: SANTYL OINT 30GM TOP SCH (08:47)
[2021-01-10] MEDS: LEVEMIR (INSULIN DETEMIR) 1 UNITS/0.01ML SC SCH ×2 (08:47→23:47)
--- NOTE | 2021-01-10 10:04 | IPNPDOC ---
Text Note Date of Service The patient was seen on 01/10/21. NOTE Subjective: Patient is a 50-year-old male with a PMHx of CAD s/p CABG, IDDM2, DLP, resented to the emergency room with confusion. Patient was brought to the hospital via EMS. Upon arrival to emergency room, patient was found to be in DKA and was admitted to the ICU for further management. Patient subsequently was found to have MSSA bacteremia, suspected to be from a prostate abscess. This was compensated with septic emboli to the lungs and to his right acromioclavicular joint and right proximal arm abscess. 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 Patient had orthopedic surgery. See his right shoulder for incision and drainage. Patient was seen and examined at the bedside. Patient was sitting up in bed, denies any nausea, vomiting, chest pain, shortness breath, palpitations, abdominal pain or diarrhea. Patient has a Richmond catheter in place. Objective: Vitals (See below) General: Laying in bed, appears to be comfortable, not in any acute distress, is oriented to person, place and time HEENT: NC, AT CVS: +S1S2 Lungs: Fair air entry b/l, no evidence of wheezing, rales or rhonchi Abdomen: Soft, nondistended and nontender Extremities: Lower extremity is do not reveal any pitting edema, - Calf tenderness Assessment and plan: s/p Sepsis - 2/2 MSSA bacteremia with septic emboli to lungs, prostate abscess, R proximal arm abscess, R acromioclavicular joint abscess - Hemodynamically stable and afebrile - Leukocytosis with slight improvement / CRP unchanged - Blood cultures 12/28: MSSA; Negative starting on 12/30 - CONCEPCION no vegetations. EF of 65%, lipomatous hypertrophy of the atrial septum no RWMA - c/w Cefazolin for 4 weeks; PICC line in place - ID on consultation; appreciate their input - Anticipate the patient will require rehabilitation moving forward s/p Right acromioclavicular joint abscess and possible OM of the distal clavicle/ Right prox arm abscess. - Has had Exploration in OR, I&D on 01/05/21 - c/w Percocet for pain control Prostate abscess - s/p cystoscopy, right retrograde pyelogram, right ureteral stent placement, TURP prostate abscess on 12/31/20 - Urology on consultation - [place] to remain in place 2 weeks postoperatively Bilateral hydronephrosis and hydroureter - 2/2 prostate abscess and trigonal inflammation - Had cysto with left ureteral stent placement on 12/25/20. Cysto showed severe inflammation of the trigone causing occlusion of the left ureteral orifice. - Again had cystoscopy, right retrograde pyelogram, right ureteral stent placement, TURP prostate abscess on 12/31/20 - Patient has left ureteral double J stent placed on 12/25/20 and right stent placement on 12/31/20 - Urology on consultation Normocytic anemia - likely 2/2 anemia of chronic disease - Hg has been slowly down trending - No evidence of bleed - Iron panel, LDH - noted - Vitamin b12, folate, Haptoglobin - pending - Will continue to follow trend s/p Acute renal failure - Renal function has normalized IDDM2 - s/p DKA and Insulin drip - c/w Levemir and ISS Stage II ulcer on the left lateral supramalleolar region - c/w Wound care s/p Hypernatremia CAD s/p CABG (2014) - c/w Atorvastatin, Clopidogrel, Metoprolol Elevated troponin - likely 2/2 demand ischemia - Denied any chest pain - EKG reviewed DLP - c/w Atorvastatin Hypertension - BP improved - c/w Amlodipine, Metoprolol, Hydralazine - BP better controlled with Lisinopril GERD - c/w Protonix DVT prophylaxis - c/w TEDs/Sequentials Disposition: - Awaiting clinical improvement - Anticipate transition to subacute rehabilitation within 24 hours VSSanthosh, I+O VSSanthosh, I+O Laboratory Tests 01/10/21 05:33 01/10/21 05:34 Vital Signs Date Time Temp Pulse Resp B/P (MAP) Pulse Ox O2 Delivery O2 Flow Rate FiO2 01/10/21 08:45 17 Nasal Cannula 01/10/21 08:44 97 184/86 01/10/21 03:38 2.0 01/09/21 22:00 97.8 90 I&O- Last 24 Hours up to 6 AM 01/10/21 06:00 Intake Total 2190 ml Output Total 2950 ml Balance -760 ml MONIKA SARGENT MD January 10, 2021 10:04
[2021-01-10 11:13] LABS: VITAMIN B12 LEVEL 1752 PG/ML
[2021-01-10 11:14] LABS: FOLATE 6.9 NG/ML
[2021-01-10] MEDS: SODIUM CHLORIDE 0.9% INJ 10 ML SYR IV PRN (11:37)
[2021-01-10 14:00] VITALS: BP 170/85
[2021-01-10 22:00] VITALS: BP 162/80
[2021-01-11] MEDS: **hydrALAZINE HCL** 25 MG TAB PO SCH ×4 (01:43→17:52)
[2021-01-11] MEDS: ceFAZolin SOD 2 GM in IV 1 EA IV SCH ×3 (01:47→17:53)
[2021-01-11] MEDS: SODIUM CHLORIDE 0.9% INJ 10 ML SYR IV SCH ×2 (05:42→18:44)
[2021-01-11 06:00] VITALS: BP 160/82
[2021-01-11 06:10] LABS: BASO # 0.1 10^3/uL (0.0-0.2); BASO % 0.5 % (0.0-1.0); EOS # 0.5 10^3/uL (0.0-0.5); EOS % 4.8 % (0.0-3.0); HEMATOCRIT 25.2 % (42.0-52.0); HEMOGLOBIN 7.8 g/dl (13.5-17.5); LYMPH # 1.7 10^3/uL (1.5-5.0); LYMPH % 15.8 % (24.0-44.0); MEAN CORPUSCULAR HEMOGLOBIN 27.6 pg (27.0-33.0); MONO # 1.1 10^3/uL (0.0-0.8); MONO % 10.3 % (2.0-8.0); NEUTROPHILS # 7.4 10^3/uL (1.5-8.5); NEUTROPHILS % 68.1 % (36.0-66.0); PLATELET COUNT, AUTOMATED 421 10^3/uL (150-450); RED BLOOD COUNT 2.83 10^6/uL (4.30-6.10); WHITE BLOOD COUNT 10.9 10^3/uL (4.0-10.0)
[2021-01-11 06:42] LABS: ALBUMIN 1.3 GM/DL (3.2-5.2); ALT/SGPT 13 U/L (12-78); BILIRUBIN,TOTAL 0.3 MG/DL (0.2-1.0); BLOOD UREA NITROGEN 18 MG/DL (7-18); CALCIUM LEVEL 8.2 MG/DL (8.5-10.1); CARBON DIOXIDE LEVEL 26 MEQ/L (21-32); CHLORIDE LEVEL 107 MEQ/L (98-107); CREATININE FOR GFR 1.06 MG/DL (0.70-1.30); GLOMERULAR FILTRATION RATE > 60.0 (>60); GLUCOSE, FASTING 117 MG/DL (70-100); SODIUM LEVEL 138 MEQ/L (136-145); TOTAL PROTEIN 6.5 GM/DL (6.4-8.2)
[2021-01-11] MEDS: LEVEMIR (INSULIN DETEMIR) 1 UNITS/0.01ML SC SCH ×2 (08:11→20:27)
[2021-01-11] MEDS: SENOKOT S TAB PO SCH ×2 (08:17→20:26)
[2021-01-11] MEDS: HumaLOG INSULIN (NovoLOG) PER UNIT SC SCH ×4 (08:17→19:41)
[2021-01-11] MEDS: CLOPIDOGREL 75 MG TAB PO SCH (08:18)
[2021-01-11] MEDS: PANTOPRAZOLE 40MG TAB (PROTONIX) PO SCH (08:18)
[2021-01-11] MEDS: ATORVASTATIN 20 MG TAB PO SCH (08:18)
[2021-01-11] MEDS: MOM 30ML SUSPENSION UDC PO SCH (08:18)
[2021-01-11] MEDS: SANTYL OINT 30GM TOP SCH (08:19)
[2021-01-11] MEDS: PERCOCET 5MG/325MG TAB PO PRN (08:20)
[2021-01-11] MEDS: METOPROLOL TART 25 MG TABLET PO SCH ×2 (08:22→20:27)
[2021-01-11] MEDS ORDERED: PERCOCET PO (09:35)
[2021-01-11] MEDS ORDERED: HYDR25TA PO (09:35)
[2021-01-11] MEDS ORDERED: CEFA2SOL IV (09:35)
[2021-01-11] MEDS ORDERED: LISI10TA22 PO (09:35)
[2021-01-11] MEDS ORDERED: INSUHUMDS SC (09:35)
[2021-01-11] MEDS ORDERED: METO1TAB87 PO (09:35)
[2021-01-11] MEDS ORDERED: INSUDET SC (09:35)
[2021-01-11] MEDS ORDERED: AMLO1TAB25 PO (09:35)
[2021-01-11] MEDS ORDERED: PANT40TA29 PO (09:35)
--- NOTE | 2021-01-11 15:49 | IPNPDOC ---
Text Note Date of Service The patient was seen on 01/11/21. NOTE Subjective: Patient is a 50-year-old male with a PMHx of CAD s/p CABG, IDDM2, DLP, resented to the emergency room with confusion. Patient was brought to the hospital via EMS. Upon arrival to emergency room, patient was found to be in DKA and was admitted to the ICU for further management. Patient subsequently was found to have MSSA bacteremia, suspected to be from a prostate abscess. This was compensated with septic emboli to the lungs and to his right acromioclavicular joint and right proximal arm abscess. 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 Patient had orthopedic surgery. See his right shoulder for incision and drainage. Patient was seen and examined at the bedside this morning and again this afternoon with infectious disease. Patient denies any chest pain or shortness of breath. Has reported some cough with mild expectoration. Denies any nausea, vomiting, abdominal pain or diarrhea. Reports that since Richmond catheter removal. He's had urinary incontinence and does not have the sensation to urinate, but does urinate. Patient has not experienced any bowel incontinence Objective: Vitals (See below) General: Patient was laying in bed was able to sit up and examined did not appear to be in any distress, did report chills, oriented to person, place and time HEENT: Normocephalic and atraumatic CVS: +S1S2 Back / Shoulder: Patient has decreased range of motion of bilateral arms abduction; right shoulder incisions appear to be clean with stitches in place Lungs: Air entry is fair bilaterally without any appreciated, rhonchi, crackles or wheezing Abdomen: Abdomen remains soft without any appreciated tenderness, distention Extremities: Lower extremity do not reveal any significant edema, - Calf tenderness Assessment and plan: s/p Sepsis - 2/2 MSSA bacteremia with septic emboli to lungs, prostate abscess, R proximal arm abscess, R acromioclavicular joint abscess - Patient had reported chills this afternoon - Hemodynamically stable and afebrile - Leukocytosis with slight improvement / CRP unchanged - Blood cultures 12/28: MSSA; Negative starting on 12/30 - CONCEPCION no vegetations. EF of 65%, lipomatous hypertrophy of the atrial septum no RWMA - c/w Cefazolin for 4 weeks; PICC line in place - ID on consultation; appreciate their input - Repeat blood cultures / CRP - Anticipate the patient will require rehabilitation moving forward s/p Right acromioclavicular joint abscess and possible OM of the distal clavicle/ Right prox arm abscess. - Has had Exploration in OR, I&D on 01/05/21 - c/w Percocet for pain control - Will discuss with Dr. Bartlett - Will get MRI of shoulder bilaterally Prostate abscess - s/p cystoscopy, right retrograde pyelogram, right ureteral stent placement, TURP prostate abscess on 12/31/20 - Urology on consultation - s/p [place] catheter Bilateral hydronephrosis and hydroureter - 2/2 prostate abscess and trigonal inflammation - Had cysto with left ureteral stent placement on 12/25/20. Cysto showed severe inflammation of the trigone causing occlusion of the left ureteral orifice. - Again had cystoscopy, right retrograde pyelogram, right ureteral stent placement, TURP prostate abscess on 12/31/20 - Patient has left ureteral double J stent placed on 12/25/20 and right stent placement on 12/31/20 - Urology on consultation Normocytic anemia - likely 2/2 anemia of chronic disease - Hg has been slowly down trending - No evidence of bleed - Iron panel, LDH - noted - Vitamin b12, folate, Haptoglobin - pending - Will continue to follow trend s/p Acute renal failure - Renal function has normalized IDDM2 - s/p DKA and Insulin drip - c/w Levemir and ISS Stage II ulcer on the left lateral supramalleolar region - c/w Wound care s/p Hypernatremia CAD s/p CABG (2014) - c/w Atorvastatin, Clopidogrel, Metoprolol Elevated troponin - likely 2/2 demand ischemia - Denied any chest pain - EKG reviewed DLP - c/w Atorvastatin Hypertension - BP improved - c/w Amlodipine, Metoprolol, Hydralazine - BP better controlled with Lisinopril GERD - c/w Protonix DVT prophylaxis - c/w TEDs/Sequentials Disposition: - Awaiting clinical improvement VS,Srinivasboncelso, I+O VS, Srinivasbone, I+O Laboratory Tests 01/11/21 05:48 Vital Signs Date Time Temp Pulse Resp B/P (MAP) Pulse Ox O2 Delivery O2 Flow Rate FiO2 01/11/21 12:08 172/82 01/11/21 08:50 20 Room Air 01/11/21 08:22 99 01/11/21 06:00 98.9 90 01/10/21 21:00 2.0 I&O- Last 24 Hours up to 6 AM 01/11/21 06:00 Intake Total 1280 ml Output Total 1500 ml Balance -220 ml MONIKA SARGENT MD January 11, 2021 15:49
--- NOTE | 2021-01-11 16:04 | REP ---
INDICATION: hypoxia COMPARISON: 12/28/2020. TECHNIQUE: Frontal and lateral chest. FINDINGS: Diffuse interstitial opacities in the left lung are stable. There are ill-defined nodular opacities in the right upper lung zone essentially unchanged. There is increased consolidative opacity inferiorly on the right. I suspect underlying right pleural fluid. Heart and mediastinum are unchanged. Multiple sternal wires are present. IMPRESSION: Increased right base consolidation. Suspect underlying right pleural effusion. <Electronically signed by Vincenzo Moyer > 01/11/21 1600
--- NOTE | 2021-01-11 17:06 | IPNPDOC ---
Date Seen The patient was seen on 01/11/21. Progress Note INFECTIOUS DISEASE PROGRESS NOTE: SUBJECTIVE: Bernardo was seen and examined at the bedside this afternoon. He was shivering and stating he was cold despite being under several blankets. His temperature was taken by Dr. Kearney and was found to be 99. He states he worked with PT twice today and he is exhausted. Otherwise, he states he is having urinary incontinence. He has urinated several times today but had feeling like he needed to urinate. He states he has no feeling in his groin region since removing his urinary catheter this morning. Otherwise, he is still unable to move either of his shoulders and has very poor range of motion. He denies any other complaints. No issues noted overnight. OBJECTIVE VITAL SIGNS: see below GENERAL: shaking/shivering profusely, alert and oriented, in no apparent distress, conversant in full sentences. HEENT: PERRL, EOMI, Oral mucous membranes are moist without lesions. Teeth are in poor condition. NECK: The patient has no noted JVD. No adenopathy is appreciated. No thyromegaly CHEST/LUNGS: Lungs are clear bilaterally without rhonchi, rales, or wheezes. There is no subcutaneous air appreciated. There is no tenderness to the chest wall. HEART: Regular rate and rhythm. 2/6 LASHELL heard in RUSB. Distal pulses are 2+. No carotid bruits appreciated. ABDOMEN: Soft, nontender, and nondistended. Bowel sounds are positive. No organomegaly is appreciated. No masses are appreciated. There are no peritoneal signs. There is no Nelson sign. EXTREMITIES: R shoulder with large scar and sutures from recent procedure. No ROM in RUE observed. Patient holds his RUE flexed and against his body. LUE has about 90 degrees ROM but pain with extension. No peripheral edema. There is no focal long bone tenderness or deformity. SKIN: The patients skin is warm and dry, without rashes or lesions. PSYCHIATRIC: AAO x 3, normal mood/affect NEUROLOGIC: No obvious focal deficits LABORATORY DATA, IMAGING STUDIES, MICROBIOLOGY: Please see below. CXR 2 view 01/11/21: FINDINGS: Diffuse interstitial opacities in the left lung are stable. There are ill- defined nodular opacities in the right upper lung zone essentially unchanged. There is increased consolidative opacity inferiorly on the right. I suspect underlying right pleural fluid. Heart and mediastinum are unchanged. Multiple sternal wires are present. IMPRESSION: Increased right base consolidation. Suspect underlying right pleural effusion. ASSESSMENT AND PLAN: This is a 50 YO M with history of CAD s/p CABG, MSSA bacteremia complicated by R AC joint septic abscess s/p I&D and prostate abscess who is currently undergoing antibiotic therapy. PROBLEMS: 1. MSSA bacteremia complicated by R AC joint infection, prostatic abscess, septic emboli: -Currently on day 11 IV Cefazolin Q8H with plan to stop on 02/02 (total of 4 weeks) -Concern for worsening infection today given chills/rigors -Ordered repeat blood cultures, ESR/CRP, CXR 2. History of R shoulder AC joint septic abscess s/p I&D: -Repeat MRI bilateral shoulders given patient's pain with movement -Consider having Orthopaedic surgery (Biedron) return to re-evaluate patient pending results of MRI 3. Prostate abscess s/p cystoscopy/pyelogram/TURP on 12/31: -After discussion with Urology yesterday (Dr. Savage), indwelling catheter was r emoved. Today patient reports numbness in his groin and has incontinence with no feeling of bladder fullness. No concern for spinal abscess/discitis -Ordered condom catheter placement for now VS, I&O, [facility] Vital Signs/I&O Vital Signs Date Time Temp Pulse Resp B/P (MAP) Pulse Ox O2 Delivery O2 Flow Rate FiO2 01/11/21 12:08 172/82 01/11/21 08:50 20 Room Air 01/11/21 08:22 99 01/11/21 06:00 98.9 90 01/10/21 21:00 2.0 I&O- Last 24 Hours up to 6 AM 01/11/21 06:00 Intake Total 1280 ml Output Total 1500 ml Balance -220 ml Laboratory Data 24H LABS Laboratory Tests 2 01/10/21 20:15: Bedside Glucose (Misc Panel) 186H 01/11/21 05:48: Immature Granulocyte % (Auto) 0.5, Neutrophils (%) (Auto) 68.1H, Lymphocytes (%) (Auto) 15.8L, Monocytes (%) (Auto) 10.3H, Eosinophils (%) (Auto) 4.8H, Basophils (%) (Auto) 0.5, Neutrophils # (Auto) 7.4, Lymphocytes # (Auto) 1.7, Monocytes # (Auto) 1.1H, Eosinophils # (Auto) 0.5, Basophils # (Auto) 0.1, Nucleated Red Blood Cells % (auto) 0.0, Anion Gap 5L, Glomerular Filtration Rate > 60.0, Calcium Level 8.2L, Magnesium Level 2.0, Total Bilirubin 0.3, Aspartate Amino Transf (AST/SGOT) 26, Alanine Aminotransferase (ALT/SGPT) 13, Alkaline Phosphatase 162H, Total Protein 6.5, Albumin 1.3L, Albumin/Globulin Ratio 0.3 01/11/21 11:20: Bedside Glucose (Misc Panel) 157H 01/11/21 16:13: 01/11/21 16:39: Bedside Glucose (Misc Panel) 200H CBC/BMP Laboratory Tests 01/11/21 05:48 Microbiology Microbiology 01/11/21 Blood Culture, Received Pending 01/11/21 Blood Culture, Received Pending 01/05/21 Gram Stain - Final, Complete 01/05/21 Wound Culture - Final, Complete 01/05/21 Anaerobic Culture - Final, Complete 01/05/21 Gram Stain - Final, Complete 01/05/21 Wound Culture - Final, Complete 01/05/21 Anaerobic Culture - Final, Complete 01/05/21 Gram Stain - Final, Complete 01/05/21 Wound Culture - Final, Complete 01/05/21 Anaerobic Culture - Final, Complete 01/05/21 Gram Stain - Final, Complete 01/05/21 Wound Culture - Final, Complete 01/05/21 Anaerobic Culture - Final, Complete 01/05/21 Gram Stain - Final, Complete 01/05/21 Wound Culture - Final, Complete 01/05/21 Anaerobic Culture - Final, Complete 01/05/21 Gram Stain - Final, Complete 01/05/21 Wound Culture - Final, Complete 01/05/21 Anaerobic Culture - Final, Complete 01/01/21 Blood Culture - Final, Complete NO GROWTH AFTER 5 DAYS GME ATTESTATION GME ATTESTATION My faculty preceptor for this patient encounter was physically present during the encounter and was fully available. All aspects of the patient interview, examination, medical decision making process, and medical care plan development were reviewed and approved by the faculty preceptor. The faculty preceptor is aware and concurs with the plan as stated in the body of this note and will attest to such by his/her cosignature. GRACE MARTÍNEZ MD January 11, 2021 17:06
[2021-01-11 17:20] VITALS: BP 179/97
[2021-01-11 22:00] VITALS: BP 166/95
[2021-01-12] VITALS (9 sets, daily range): BP systolic 128–170; BP diastolic 70–82
[2021-01-12] MEDS: **hydrALAZINE HCL** 25 MG TAB PO SCH ×6 (00:18→23:07)
[2021-01-12] MEDS: ACETAMINOPHEN 500 MG TAB PO PRN ×2 (00:19→14:42)
[2021-01-12] MEDS: PERCOCET 5MG/325MG TAB PO PRN (00:19)
[2021-01-12] MEDS: ceFAZolin SOD 2 GM in IV 1 EA IV SCH (02:55)
[2021-01-12] MEDS: SODIUM CHLORIDE 0.9% INJ 10 ML SYR IV PRN (04:07)
[2021-01-12] MEDS: SODIUM CHLORIDE 0.9% INJ 10 ML SYR IV SCH ×2 (05:36→18:32)
[2021-01-12 06:09] LABS: BASO % 0.4 % (0.0-1.0); EOS # 0.5 10^3/uL (0.0-0.5); EOS % 4.2 % (0.0-3.0); HEMATOCRIT 24.2 % (42.0-52.0); HEMOGLOBIN 7.6 g/dl (13.5-17.5); LYMPH # 2.2 10^3/uL (1.5-5.0); LYMPH % 20.6 % (24.0-44.0); MEAN CORPUSCULAR HEMOGLOBIN 28.3 pg (27.0-33.0); MEAN CORPUSCULAR HGB CONC 31.4 g/dl (32.0-36.5); MONO # 1.3 10^3/uL (0.0-0.8); MONO % 11.5 % (2.0-8.0); NEUTROPHILS # 6.8 10^3/uL (1.5-8.5); NEUTROPHILS % 62.8 % (36.0-66.0); PLATELET COUNT, AUTOMATED 422 10^3/uL (150-450); RED BLOOD COUNT 2.69 10^6/uL (4.30-6.10); WHITE BLOOD COUNT 10.8 10^3/uL (4.0-10.0)
[2021-01-12 06:36] LABS: ALBUMIN 1.3 GM/DL (3.2-5.2); ALT/SGPT 7 U/L (12-78); BILIRUBIN,TOTAL 0.3 MG/DL (0.2-1.0); BLOOD UREA NITROGEN 19 MG/DL (7-18); CALCIUM LEVEL 7.9 MG/DL (8.5-10.1); CARBON DIOXIDE LEVEL 25 MEQ/L (21-32); CHLORIDE LEVEL 108 MEQ/L (98-107); CREATININE FOR GFR 1.15 MG/DL (0.70-1.30); GLOMERULAR FILTRATION RATE > 60.0 (>60); GLUCOSE, FASTING 100 MG/DL (70-100); POTASSIUM SERUM 3.6 MEQ/L (3.5-5.1); SODIUM LEVEL 138 MEQ/L (136-145); TOTAL PROTEIN 6.7 GM/DL (6.4-8.2)
[2021-01-12] MEDS: HumaLOG INSULIN (NovoLOG) PER UNIT SC SCH ×4 (07:30→21:00)
[2021-01-12] MEDS: LEVEMIR (INSULIN DETEMIR) 1 UNITS/0.01ML SC SCH ×2 (09:00→21:55)
--- NOTE | 2021-01-12 09:06 | REP ---
INDICATION: R pleural effusion COMPARISON: 12/30/2020 TECHNIQUE: Axial noncontrast images from the thoracic inlet to the upper abdomen with coronal and sagittal reformations. This CT examination was performed using the following dose reduction techniques: Automated exposure control, adjustment of mA and/or kv according to the patient's size, and use of iterative reconstruction technique. FINDINGS: The lung veronica demonstrate right lower lobe consolidation with air bronchograms and small to moderate right pleural effusion which have increased from prior examination. Chronic elevation to the right hemidiaphragm is again noted. The aerated bilateral lung veronica demonstrate innumerable round opacities which have relatively rapidly increased as compared through 12/23/2020 most suggestive of septic emboli and/or multifocal pneumonia. Findings less likely suggest metastatic disease which cannot definitively be excluded. Associated reactive mediastinal and hilar adenopathy noted. Tracheobronchial tree is relatively patent. Stable cardiomegaly and atherosclerotic changes to the thoracic aorta and coronary arteries. No pericardial effusion. Limited upper abdomen demonstrates normal bilateral adrenal glands. IMPRESSION: 1. Chronic elevation to the right hemidiaphragm and to the significant opacity on recent x-rays. However, there is new right lower lobe consolidation with air bronchograms and small to moderate right pleural effusion which appear increased from 12/30/2020. 2. Scattered bilateral rounded opacities are again noted which have relatively rapidly increased as compared with 12/23/2020 and are most suggestive of septic emboli/multifocal pneumonia. Differential diagnosis less likely includes metastatic disease. <Electronically signed by Ramon North > 01/12/21 [id number]
--- NOTE | 2021-01-12 11:18 | IPNPDOC ---
Text Note Date of Service The patient was seen on 01/12/21. NOTE Subjective: Patient is a 50-year-old male with a PMHx of CAD s/p CABG, IDDM2, DLP, resented to the emergency room with confusion. Patient was brought to the hospital via EMS. Upon arrival to emergency room, patient was found to be in DKA and was admitted to the ICU for further management. Patient subsequently was found to have MSSA bacteremia, suspected to be from a prostate abscess. This was compensated with septic emboli to the lungs and to his right acromioclavicular joint and right proximal arm abscess. 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 Patient had orthopedic surgery. See his right shoulder for incision and drainage. Patient was seen and examined at the bedside. Patient denied any chest pain, shortness of breath this morning. He didn't report any significant cough. Has not had any nausea, vomiting or abdominal pain. He did report that overnight had difficulty with urination and required straight catheterization. However, he did report he was able to void, but the bladder scans had revealed a post void residual. Objective: Vitals (See below) General: Sitting up in bed, appears comfortable, not in any acute distress, oriented to person, place and time HEENT: Normocephalic and atraumatic CVS: +S1S2 Back / Shoulder: Again wounds of his right shoulder appear clean. Stitches intact. No drainage Lungs: There is diminished lung sounds at right lung base. No evidence of wheezing, crackles or rhonchi Abdomen: Abdomen is soft without any patient did tenderness or distention Extremities: Lower extremity do not reveal any significant edema, - Calf tenderness Assessment and plan: s/p Sepsis - 2/2 MSSA bacteremia with septic emboli to lungs, prostate abscess, R proximal arm abscess, R acromioclavicular joint abscess - Patient denies any chills. This morning - Has remained hemodynamically stable without any fevers noted - Leukocytosis and CRP have had improvement - Blood cultures 12/28: MSSA; Negative starting on 12/30 - Repeat blood cultures 01/11: Pending - CONCEPCION no vegetations. EF of 65%, lipomatous hypertrophy of the atrial septum no RWMA - c/w Cefazolin for 4 weeks; PICC line in place - ID on consultation; appreciate their input - Anticipate the patient will require rehabilitation moving forward Reported cough - possibly pneumonia - Currently patient reports improvement of his breathing - Yesterday (01/11) patient had reported a productive cough - CT Chest 01/12: 1. Chronic elevation to the right hemidiaphragm and to the significant opacity on recent x-rays. However, there is new right lower lobe consolidation with air bronchograms and small to moderate right pleural effusion which appear increased from 12/30/2020. 2. Scattered bilateral rounded opacities are again noted which have relatively rapidly increased as compared with 12/23/2020 and are most suggestive of septic emboli/multifocal pneumonia. Differential diagnosis less likely includes metastatic disease. - Will check sputum culture / Procalcitonin / Will escalate antibiotic coverage to Zosyn s/p Right acromioclavicular joint abscess and possible OM of the distal clavicle/ Right prox arm abscess. - Hasr had Exploration in OR, I&D on 01/05/21 - c/w Percocet for pain control - Discussed with Dr. Bartlett - will await imaging findings - Will get MRI of shoulder bilaterally Prostate abscess - s/p cystoscopy, right retrograde pyelogram, right ureteral stent placement, TURP prostate abscess on 12/31/20 - Urology on consultation - s/p Richmond catheter Bilateral hydronephrosis and hydroureter - 2/2 prostate abscess and trigonal inflammation - Had cysto with left ureteral stent placement on 12/25/20. Cysto showed severe inflammation of the trigone causing occlusion of the left ureteral orifice. - Again had cystoscopy, right retrograde pyelogram, right ureteral stent placement, TURP prostate abscess on 12/31/20 - Patient has left ureteral double J stent placed on 12/25/20 and right stent placement on 12/31/20 - Urology on consultation Normocytic anemia - likely 2/2 anemia of chronic disease - Hg has been slowly down trending - No evidence of bleed - Iron panel, Vitamin b12, folate, Haptoglobin, LDH - noted - Will provide 2 units PRBC transfusion s/p Acute renal failure - Renal function has normalized IDDM2 - s/p DKA and Insulin drip - c/w Levemir and ISS Stage II ulcer on the left lateral supramalleolar region - c/w Wound care s/p Hypernatremia CAD s/p CABG (2014) - c/w Atorvastatin, Clopidogrel, Metoprolol Elevated troponin - likely 2/2 demand ischemia - Denied any chest pain - EKG reviewed DLP - c/w Atorvastatin Hypertension - BP improved - c/w Amlodipine, Metoprolol, Hydralazine - BP better controlled with Lisinopril GERD - c/w Protonix DVT prophylaxis - c/w TEDs / Sequentials Disposition: - Awaiting clinical improvement VS,Santhosh I+O VS, Santhosh I+O Laboratory Tests 01/12/21 05:40 Vital Signs Date Time Temp Pulse Resp B/P (MAP) Pulse Ox O2 Delivery O2 Flow Rate FiO2 01/12/21 06:00 98.5 84 18 163/82 (109) 92 Room Air 01/10/21 21:00 2.0 I&O- Last 24 Hours up to 6 AM 01/12/21 06:00 Intake Total 3410 ml Output Total 2150 ml Balance 1260 ml MONIKA SARGENT MD January 12, 2021 11:18
[2021-01-12] MEDS: MOM 30ML SUSPENSION UDC PO SCH (12:44)
[2021-01-12] MEDS: TAMSULOSIN 0.4 MG CAP PO SCH (12:45)
[2021-01-12] MEDS: SENOKOT S TAB PO SCH ×2 (12:45→21:00)
[2021-01-12] MEDS: ATORVASTATIN 20 MG TAB PO SCH (12:45)
[2021-01-12] MEDS: CLOPIDOGREL 75 MG TAB PO SCH (12:46)
[2021-01-12] MEDS: PANTOPRAZOLE 40MG TAB (PROTONIX) PO SCH (12:46)
[2021-01-12] MEDS: SANTYL OINT 30GM TOP SCH (12:48)
[2021-01-12] MEDS: METOPROLOL TART 25 MG TABLET PO SCH ×2 (12:50→21:55)
[2021-01-12] MEDS: PIPERACILLIN/TAZOBACTAM SOD 3.375 GM in D5W MINI-BAG PLUS 50 ML IV SCH ×2 (12:50→18:33)
--- NOTE | 2021-01-12 12:55 | REP ---
INDICATION: BILATERAL BODY PART SEPSIS. COMPARISON: 01/01/2021. TECHNIQUE: Coronal oblique T1, T2 fat sat, sagittal oblique T2 fat sat, axial T2 fat sat, gradient echo. FINDINGS: Rotator cuff: There is increased signal on T2 weighted images in portions of the rotator cuff muscles and tendons, increased since the prior study. Acromioclavicular joint: There are degenerative changes at the acromioclavicular joint with mild fluid in the joint and subchondral marrow edema. Acromion: Type 1 Biceps Tendon: In bicipital groove, no tenosynovitis. Hill Sach's deformity: None. Deltoid muscle: There is diffuse edema throughout the deltoid muscle which has significantly increased since the prior study. Nodular areas of low signal on T2 in the posterolateral deltoid muscle may represent developing calcifications or areas of hemorrhage. Biceps labral complex: Intact. Labrum: There is a tear at the posterosuperior labrum. Cartilage: No defects. Bone marrow: There are small subcortical cystic changes in the superolateral humeral head. There is no evidence of bone marrow edema along the glenohumeral joint and no evidence of septic arthritis. Joint fluid: No effusion. There is mild fluid superior to the acromioclavicular joint in a subcutaneous location, measuring approximately 1.2 x 6.3 x 1.5 cm. IMPRESSION: Diffuse edema and inflammation scattered throughout the soft tissues of the right shoulder also including the deltoid muscle well as rotator cuff muscles and tendons. These findings have increased since the prior study. This is most consistent with cellulitis and possible myositis. There is degenerative change at the acromioclavicular joint. No abnormalities are seen the glenohumeral joint. There is no evidence of glenohumeral joint septic arthritis. There is no joint effusion. Subcutaneous fluid collection above the acromioclavicular joint is nonspecific measuring 1.2 x 6.3 x 1.5 cm. There is a tear of the posterosuperior labrum. <Electronically signed by Vincenzo Moyer > 01/12/21 [id number]
--- NOTE | 2021-01-12 13:01 | REP ---
INDICATION: r/o septic arthritis. COMPARISON: None. TECHNIQUE: Coronal oblique T1, T2 fat sat, sagittal oblique T2 fat sat, axial T2 fat sat, gradient echo. FINDINGS: Rotator cuff: There is diffuse edema and high signal in the rotator cuff muscles. Acromioclavicular joint: Unremarkable. Acromion: Type 2 Biceps Tendon: In bicipital groove, no tenosynovitis. Hill Sach's deformity: None. Deltoid muscle: There is diffuse edema and T2 high signal in the deltoid muscle. Biceps labral complex: Intact. Labrum: No tear. Cartilage: No defects. Bone marrow: No abnormal signal. Joint fluid: No effusion. There is moderate complex fluid in the subacromial/subdeltoid bursae. IMPRESSION: Diffuse edema and inflammation of the musculature surrounding the shoulder joint as discussed above including the rotator cuff and deltoid muscles. Findings suggest cellulitis and possible myositis. There is moderate complex fluid in the subacromial/subdeltoid bursae, and infected bursal fluid is not excluded. No abnormal bone marrow signal. No effusion at the glenohumeral joint. <Electronically signed by Vincenzo Moyer > 01/12/21 [id number]
[2021-01-13 01:04] VITALS: BP 166/87
[2021-01-13 02:00] VITALS: BP 164/82
[2021-01-13] MEDS: PIPERACILLIN/TAZOBACTAM SOD 3.375 GM in D5W MINI-BAG PLUS 50 ML IV SCH ×5 (02:02→23:37)
[2021-01-13] MEDS: PERCOCET 5MG/325MG TAB PO PRN ×2 (05:25→20:41)
[2021-01-13] MEDS: **hydrALAZINE HCL** 25 MG TAB PO SCH (05:27)
[2021-01-13] MEDS: SODIUM CHLORIDE 0.9% INJ 10 ML SYR IV SCH ×2 (05:28→19:00)
[2021-01-13 05:50] LABS: BASO # 0.1 10^3/uL (0.0-0.2); BASO % 0.5 % (0.0-1.0); EOS # 0.5 10^3/uL (0.0-0.5); EOS % 4.4 % (0.0-3.0); HEMOGLOBIN 8.8 g/dl (13.5-17.5); LYMPH # 1.7 10^3/uL (1.5-5.0); LYMPH % 14.8 % (24.0-44.0); MEAN CORPUSCULAR HEMOGLOBIN 27.8 pg (27.0-33.0); MEAN CORPUSCULAR HGB CONC 31.4 g/dl (32.0-36.5); MEAN CORPUSCULAR VOLUME 88.6 fl (80.0-96.0); MONO # 1.2 10^3/uL (0.0-0.8); MONO % 10.4 % (2.0-8.0); NEUTROPHILS # 7.9 10^3/uL (1.5-8.5); NEUTROPHILS % 69.5 % (36.0-66.0); PLATELET COUNT, AUTOMATED 390 10^3/uL (150-450); RED BLOOD COUNT 3.16 10^6/uL (4.30-6.10); WHITE BLOOD COUNT 11.4 10^3/uL (4.0-10.0)
[2021-01-13 06:00] VITALS: BP 165/76
[2021-01-13 06:37] LABS: ALBUMIN 1.4 GM/DL (3.2-5.2); ALT/SGPT 10 U/L (12-78); BILIRUBIN,TOTAL 0.5 MG/DL (0.2-1.0); BLOOD UREA NITROGEN 18 MG/DL (7-18); CALCIUM LEVEL 7.8 MG/DL (8.5-10.1); CARBON DIOXIDE LEVEL 24 MEQ/L (21-32); CHLORIDE LEVEL 109 MEQ/L (98-107); GLOMERULAR FILTRATION RATE > 60.0 (>60); GLUCOSE, FASTING 153 MG/DL (70-100); POTASSIUM SERUM 4.2 MEQ/L (3.5-5.1); SODIUM LEVEL 138 MEQ/L (136-145); TOTAL PROTEIN 6.5 GM/DL (6.4-8.2)
[2021-01-13] MEDS: MOM 30ML SUSPENSION UDC PO SCH (08:51)
[2021-01-13] MEDS: TAMSULOSIN 0.4 MG CAP PO SCH (08:51)
[2021-01-13] MEDS: ATORVASTATIN 20 MG TAB PO SCH (08:51)
[2021-01-13] MEDS: SENOKOT S TAB PO SCH ×2 (08:51→20:41)
[2021-01-13] MEDS: CLOPIDOGREL 75 MG TAB PO SCH (08:52)
[2021-01-13] MEDS: METOPROLOL TART 25 MG TABLET PO SCH ×2 (08:52→20:41)
[2021-01-13] MEDS: PANTOPRAZOLE 40MG TAB (PROTONIX) PO SCH (08:52)
[2021-01-13] MEDS: LEVEMIR (INSULIN DETEMIR) 1 UNITS/0.01ML SC SCH ×2 (09:40→20:40)
[2021-01-13] MEDS: HumaLOG INSULIN (NovoLOG) PER UNIT SC SCH ×4 (09:40→20:42)
[2021-01-13] MEDS: SANTYL OINT 30GM TOP SCH (12:33)
--- NOTE | 2021-01-13 12:34 | IPNPDOC ---
Text Note Date of Service The patient was seen on 01/13/21. NOTE Subjective: Patient is a 50-year-old male with a PMHx of CAD s/p CABG, IDDM2, DLP, resented to the emergency room with confusion. Patient was brought to the hospital via EMS. Upon arrival to emergency room, patient was found to be in DKA and was admitted to the ICU for further management. Patient subsequently was found to have MSSA bacteremia, suspected to be from a prostate abscess. This was compensated with septic emboli to the lungs and to his right acromioclavicular joint and right proximal arm abscess. 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 Patient had orthopedic surgery. See his right shoulder for incision and drainage. Patient was seen and examined at the bedside. Patient reports that he is still having some difficulty with urinary retention. Denies any CP, SOB or palpitations. Has not experience any constipation. Reports regular bowel movements. Objective: Vitals (See below) General: Sitting up in bed, appears to be comfortable, not in any acute distress, is oriented to person, place and time HEENT: Normocephalic and atraumatic CVS: +S1S2 Lungs: Air entry is fair bilaterally. No evidence of crackles or wheezing Abdomen: Nondistended, soft. Some tenderness in suprapubic region Extremities: Lower extremities do not reveal any signs of pitting edema, - Calf tenderness Assessment and plan: s/p Sepsis - 2/2 MSSA bacteremia with septic emboli to lungs, prostate abscess, R proximal arm abscess, R acromioclavicular joint abscess - No chills / hemodynamically stable / afebrile - Leukocytosis persists / CRP with improvement - Blood cultures 12/28: MSSA; Negative starting on 12/30 - Repeat blood cultures 01/11: Negative at 24 hours - CONCEPCION no vegetations. EF of 65%, lipomatous hypertrophy of the atrial septum no RWMA - c/w Zosyn (Day #2); s/p Cefazolin; PICC line in place - ID on consultation; appreciate their input - Anticipate the patient will require rehabilitation moving forward Reported cough - possibly pneumonia - Currently patient reports improvement of his breathing - On 01/11 patient had reported a productive cough - CT Chest 01/12: 1. Chronic elevation to the right hemidiaphragm and to the significant opacity on recent x-rays. However, there is new right lower lobe consolidation with air bronchograms and small to moderate right pleural effusion which appear increased from 12/30/2020. 2. Scattered bilateral rounded opacities are again noted which have relatively rapidly increased as compared with 12/23/2020 and are most suggestive of septic emboli/multifocal pneumonia. Differential diagnosis less likely includes metastatic disease. - Sputum culture / Procalcitonin pending - c/w Zosyn (Day #2) s/p Right acromioclavicular joint abscess and possible OM of the distal clavicle/ Right prox arm abscess. - Has had had Exploration in OR, I&D on 01/05/21 - c/w Percocet for pain control - Discussed MRI findings of bilateral of shoulder with Dr. Bartlett; plan for aspiration of left shoulder Prostate abscess / Urinary retention - Patient has complained of continued retention - s/p cystoscopy, right retrograde pyelogram, right ureteral stent placement, TURP prostate abscess on 12/31/20 - Urology on consultation; discussed with Dr. Johnson - will have Richmond catheter re-inserted and remain in place until evaluated by urology Bilateral hydronephrosis and hydroureter - 2/2 prostate abscess and trigonal inflammation - Had cysto with left ureteral stent placement on 12/25/20. Cysto showed severe inflammation of the trigone causing occlusion of the left ureteral orifice. - Again had cystoscopy, right retrograde pyelogram, right ureteral stent kvng cement, TURP prostate abscess on 12/31/20 - Patient has left ureteral double J stent placed on 12/25/20 and right stent placement on 12/31/20 - Urology on consultation Normocytic anemia - likely 2/2 anemia of chronic disease - No evidence of bleed - Iron panel, Vitamin b12, folate, Haptoglobin, LDH - noted - s/p 2 units PRBC - Hg improved; will continue to trend s/p Acute renal failure - Renal function has normalized IDDM2 - s/p DKA and Insulin drip - c/w Levemir and ISS Stage II ulcer on the left lateral supramalleolar region - c/w Wound care s/p Hypernatremia CAD s/p CABG (2014) - c/w Atorvastatin, Clopidogrel, Metoprolol Elevated troponin - likely 2/2 demand ischemia - Denied any chest pain - EKG reviewed DLP - c/w Atorvastatin Hypertension - BP improved - c/w Amlodipine, Metoprolol, Hydralazine - BP better controlled with Lisinopril GERD - c/w Protonix DVT prophylaxis - c/w TEDs / Sequentials Disposition: - Awaiting clinical improvement VS,Fishbone, I+O VS, Fishbone, I+O Laboratory Tests 01/13/21 05:29 Vital Signs Date Time Temp Pulse Resp B/P (MAP) Pulse Ox O2 Delivery O2 Flow Rate FiO2 01/13/21 08:51 86 174/87 01/13/21 06:00 98.5 18 91 Room Air 01/10/21 21:00 2.0 I&O- Last 24 Hours up to 6 AM 01/13/21 06:00 Intake Total 2660 ml Output Total 2150 ml Balance 510 ml MONIKA SARGENT MD January 13, 2021 12:34
[2021-01-13] MEDS: **hydrALAZINE** 50 MG TAB PO SCH ×3 (12:54→23:37)
[2021-01-13 14:00] VITALS: BP 116/60
--- NOTE | 2021-01-13 19:54 | IPNPDOC ---
Date Seen The patient was seen on 01/13/21. Progress Note INFECTIOUS DISEASE PROGRESS NOTE: SUBJECTIVE: Bernardo was seen and examined at the bedside this afternoon. He states that his room is quite cold and he continues to shiver. He states nursing was going to see about making it warmer in his room. He is able to explain for me the plan moving forward, including aspiration of his left shoulder and the findings of pleural effusion on the chest CT. His johns catheter has been replaced, per Urology. Otherwise, he has no concerns today. He states he is coughing frequently but not having any shortness of breath or dyspnea on exertion. PT notes that he did drop down to 86% oxygen saturation with exertion. OBJECTIVE VITAL SIGNS: see below GENERAL: shaking/shivering profusely, alert and oriented, in no apparent distress, conversant in full sentences. HEENT: PERRL, EOMI, Oral mucous membranes are moist without lesions. Teeth are in poor condition. NECK: The patient has no noted JVD. No adenopathy is appreciated. No thyromegaly CHEST/LUNGS: Lungs are clear bilaterally without rhonchi, rales, or wheezes. There is no subcutaneous air appreciated. There is no tenderness to the chest wall. HEART: Regular rate and rhythm. 2/6 LASHELL heard in RUSB. Distal pulses are 2+. No carotid bruits appreciated. ABDOMEN: Soft, nontender, and nondistended. Bowel sounds are positive. No organomegaly is appreciated. No masses are appreciated. There are no peritoneal signs. There is no Malcom sign. EXTREMITIES: R shoulder with scar and sutures from recent procedure. No ROM in RUE observed. Patient holds his RUE flexed and against his body. LUE has about 90 degrees ROM but pain with abduction, good flexion and extension. No peripheral edema. There is no focal long bone tenderness or deformity. SKIN: The patients skin is warm and dry, with vitiligo diffusely and left leg 2cmx 1 cm ulcer laterally above malleolus clean . PSYCHIATRIC: AAO x 3, normal mood/affect NEUROLOGIC: No obvious focal deficits LABORATORY DATA, IMAGING STUDIES, MICROBIOLOGY: Please see below. CXR 2 view 01/11/21: IMPRESSION: Increased right base consolidation. Suspect underlying right pleural effusion. MRI SHOULDER (RIGHT) 01/12/21: IMPRESSION: Diffuse edema and inflammation scattered throughout the soft tissues of the right shoulder also including the deltoid muscle well as rotator cuff muscles and tendons. These findings have increased since the prior study. This is most consistent with cellulitis and possible myositis. There is degenerative change at the acromioclavicular joint. No abnormalities are seen the glenohumeral joint. There is no evidence of glenohumeral joint septic arthritis. There is no joint effusion. Subcutaneous fluid collection above the acromioclavicular joint is nonspecific measuring 1.2 x 6.3 x 1.5 cm. MRI SHOULDER (LEFT) 01/12/21: IMPRESSION: Diffuse edema and inflammation of the musculature surrounding the shoulder joint as discussed above including the rotator cuff and deltoid muscles. Findings suggest cellulitis and possible myositis. There is moderate complex fluid in the subacromial/subdeltoid bursae, and infected bursal fluid is not excluded. No abnormal bone marrow signal. No effusion at the glenohumeral joint. CT CHEST 01/12/21: IMPRESSION: 1. Chronic elevation to the right hemidiaphragm and to the significant opacity on recent x-rays. However, there is new right lower lobe consolidation with air bronchograms and small to moderate right pleural effusion which appear increased from 12/30/2020. 2. Scattered bilateral rounded opacities are again noted which have relatively rapidly increased as compared with 12/23/2020 and are most suggestive of septic emboli/multifocal pneumonia. Differential diagnosis less likely includes metastatic disease. ASSESSMENT AND PLAN: This is a 50 YO M with history of CAD s/p CABG, MSSA bacteremia complicated by R AC joint septic abscess s/p I&D, prostate abscess s/p TURP and septic pulmonary emboli who is currently undergoing antibiotic therapy. PROBLEMS: 1. MSSA bacteremia complicated by R AC joint infection, prostatic abscess, septic emboli: -s/p IV Cefazolin Q8H(17 Days), now on Zosyn day 2 for worsening pneumonia to cover for [employer] associated pathogens -Repeat blood cultures negative growth thus far 2. History of R shoulder AC joint septic abscess s/p I&D: -Repeat MRI left shoulder concerning for fluid accumulation, patient will be seen by orthopaedic surgery tomorrow 01/14 in the afternoon -Will discuss with interventional radiology regarding whether fluid aspiration is necessary at this point, ortho has been reconsulted for possible intervention 3. Prostate abscess s/p cystoscopy/pyelogram/TURP on 12/31: -Indwelling catheter replaced soon after it was removed as patient was having issues with incontinence. Per Urology, plan to keep indwelling catheter in place until bilateral urethral stents removed. 4. History of septic pulmonary emboli: -CT chest on 01/12 demonstrated bilateral opacities that have increased in size as well as RLL consolidation and moderate R pleural effusion. -Will discuss with interventional radiology regarding whether Rt pleural fluid poses risk of empyema and whether it needs to be drained VS, I&O, 24H, Fishbone Vital Signs/I&O Vital Signs Date Time Temp Pulse Resp B/P (MAP) Pulse Ox O2 Delivery O2 Flow Rate FiO2 01/13/21 14:00 98.4 96 18 116/60 (78) 90 Room Air 01/10/21 21:00 2.0 I&O- Last 24 Hours up to 6 AM 01/13/21 06:00 Intake Total 2660 ml Output Total 2150 ml Balance 510 ml Laboratory Data 24H LABS Laboratory Tests 2 01/12/21 16:55: Bedside Glucose (Misc Panel) 128H 01/12/21 21:47: Bedside Glucose (Misc Panel) 233H 01/13/21 05:29: Immature Granulocyte % (Auto) 0.4, Neutrophils (%) (Auto) 69.5H, Lymphocytes (%) (Auto) 14.8L, Monocytes (%) (Auto) 10.4H, Eosinophils (%) (Auto) 4.4H, Basophils (%) (Auto) 0.5, Neutrophils # (Auto) 7.9, Lymphocytes # (Auto) 1.7, Monocytes # (Auto) 1.2H, Eosinophils # (Auto) 0.5, Basophils # (Auto) 0.1, Nucleated Red Blood Cells % (auto) 0.0, Anion Gap 5L, Glomerular Filtration Rate > 60.0, Calcium Level 7.8L, Magnesium Level 2.0, Total Bilirubin 0.5#, Aspartate Amino Transf (AST/SGOT) 22, Alanine Aminotransferase (ALT/SGPT) 10L, Alkaline Phosphatase 144H, C-Reactive Protein, Quantitative 10.40H, Total Protein 6.5, Albumin 1.4L, Albumin/Globulin Ratio 0.3 01/13/21 12:13: Bedside Glucose (Misc Panel) 89 01/13/21 12:51: Procalcitonin 0.17 CBC/BMP Laboratory Tests 01/13/21 05:29 Microbiology Microbiology 01/11/21 Blood Culture - Preliminary, Resulted No growth after 24 hours . All specim... 01/11/21 Blood Culture - Preliminary, Resulted No Growth after 48 hours. All Specime... 01/05/21 Gram Stain - Final, Resulted 01/05/21 Wound Culture - Final, Resulted 01/05/21 Anaerobic Culture - Final, Resulted 01/05/21 Gram Stain - Final, Complete 01/05/21 Wound Culture - Final, Complete 01/05/21 Anaerobic Culture - Final, Complete 01/05/21 Gram Stain - Final, Complete 01/05/21 Wound Culture - Final, Complete 01/05/21 Anaerobic Culture - Final, Complete 01/05/21 Gram Stain - Final, Complete 01/05/21 Wound Culture - Final, Complete 01/05/21 Anaerobic Culture - Final, Complete 01/05/21 Gram Stain - Final, Complete 01/05/21 Wound Culture - Final, Complete 01/05/21 Anaerobic Culture - Final, Complete 01/05/21 Gram Stain - Final, Complete 01/05/21 Wound Culture - Final, Complete 01/05/21 Anaerobic Culture - Final, Complete GME ATTESTATION GME ATTESTATION My faculty preceptor for this patient encounter was physically present during the encounter and was fully available. All aspects of the patient interview, examination, medical decision making process, and medical care plan development were reviewed and approved by the faculty preceptor. The faculty preceptor is aware and concurs with the plan as stated in the body of this note and will attest to such by his/her cosignature. GRACE MARTÍNEZ MD January 13, 2021 16:30 Hafsa Mckeon MD January 14, 2021 17:27
[2021-01-13 22:00] VITALS: BP 166/82
[2021-01-14] MEDS: PIPERACILLIN/TAZOBACTAM SOD 3.375 GM in D5W MINI-BAG PLUS 50 ML IV SCH ×4 (05:33→23:38)
[2021-01-14] MEDS: **hydrALAZINE** 50 MG TAB PO SCH ×4 (05:33→23:38)
[2021-01-14] MEDS: SODIUM CHLORIDE 0.9% INJ 10 ML SYR IV SCH ×2 (05:34→18:43)
[2021-01-14 06:00] VITALS: BP 174/82
[2021-01-14 06:06] LABS: BASO # 0.1 10^3/uL (0.0-0.2); BASO % 0.5 % (0.0-1.0); EOS # 0.7 10^3/uL (0.0-0.5); EOS % 6.1 % (0.0-3.0); HEMATOCRIT 28.2 % (42.0-52.0); HEMOGLOBIN 8.9 g/dl (13.5-17.5); LYMPH # 2.4 10^3/uL (1.5-5.0); MEAN CORPUSCULAR HEMOGLOBIN 27.9 pg (27.0-33.0); MEAN CORPUSCULAR HGB CONC 31.6 g/dl (32.0-36.5); MEAN CORPUSCULAR VOLUME 88.4 fl (80.0-96.0); MONO # 1.3 10^3/uL (0.0-0.8); MONO % 10.6 % (2.0-8.0); NEUTROPHILS # 7.6 10^3/uL (1.5-8.5); NEUTROPHILS % 62.3 % (36.0-66.0); PLATELET COUNT, AUTOMATED 432 10^3/uL (150-450); RED BLOOD COUNT 3.19 10^6/uL (4.30-6.10); WHITE BLOOD COUNT 12.2 10^3/uL (4.0-10.0)
[2021-01-14 06:33] LABS: ALBUMIN 1.4 GM/DL (3.2-5.2); ALT/SGPT 10 U/L (12-78); BILIRUBIN,TOTAL 0.3 MG/DL (0.2-1.0); BLOOD UREA NITROGEN 18 MG/DL (7-18); C REACTIVE PROTEIN QUANTITATIV 9.95 MG/DL (0.00-0.30); CALCIUM LEVEL 7.8 MG/DL (8.5-10.1); CARBON DIOXIDE LEVEL 24 MEQ/L (21-32); CHLORIDE LEVEL 110 MEQ/L (98-107); CREATININE FOR GFR 1.24 MG/DL (0.70-1.30); GLOMERULAR FILTRATION RATE > 60.0 (>60); GLUCOSE, FASTING 98 MG/DL (70-100); MAGNESIUM LEVEL 1.8 MG/DL (1.8-2.4); POTASSIUM SERUM 3.7 MEQ/L (3.5-5.1); SODIUM LEVEL 139 MEQ/L (136-145); TOTAL PROTEIN 6.5 GM/DL (6.4-8.2)
[2021-01-14] MEDS: HumaLOG INSULIN (NovoLOG) PER UNIT SC SCH ×4 (07:30→20:20)
[2021-01-14] MEDS: LEVEMIR (INSULIN DETEMIR) 1 UNITS/0.01ML SC SCH ×2 (09:00→20:18)
[2021-01-14] MEDS: MOM 30ML SUSPENSION UDC PO SCH (09:53)
[2021-01-14] MEDS: ATORVASTATIN 20 MG TAB PO SCH (09:53)
[2021-01-14] MEDS: SENOKOT S TAB PO SCH ×2 (09:53→20:19)
[2021-01-14] MEDS: PANTOPRAZOLE 40MG TAB (PROTONIX) PO SCH (09:53)
[2021-01-14] MEDS: CLOPIDOGREL 75 MG TAB PO SCH (09:53)
[2021-01-14] MEDS: SANTYL OINT 30GM TOP SCH (09:53)
[2021-01-14] MEDS: TAMSULOSIN 0.4 MG CAP PO SCH (09:53)
[2021-01-14] MEDS: METOPROLOL TART 25 MG TABLET PO SCH ×2 (09:54→20:19)
[2021-01-14] MEDS: PERCOCET 5MG/325MG TAB PO PRN ×2 (09:55→18:42)
--- NOTE | 2021-01-14 12:20 | IPNPDOC ---
Text Note Date of Service The patient was seen on 01/14/21. NOTE Subjective: Patient is a 50-year-old male with a PMHx of CAD s/p CABG, IDDM2, DLP, resented to the emergency room with confusion. Patient was brought to the hospital via EMS. Upon arrival to emergency room, patient was found to be in DKA and was admitted to the ICU for further management. Patient subsequently was found to have MSSA bacteremia, suspected to be from a prostate abscess. This was compensated with septic emboli to the lungs and to his right acromioclavicular joint and right proximal arm abscess. 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 Patient had orthopedic surgery. See his right shoulder for incision and drainage. Patient was seen and examined at the bedside. Patient reports he has had an uneventful evening denies any chest pain, no significant shortness breath, palpitations, cough. Denies any nausea, vomiting, abdominal pain, denies any difficulty bowel movements. Patient has a Richmond catheter in place. Objective: Vitals (See below) General: Laying in bed, appears comfortable, not in any acute distress, is oriented to person, place and time HEENT: Normocephalic and atraumatic CVS: +S1S2 Lungs: Slightly diminished lung sounds at right lung base, without any evidence of wheezing, crackles or rhonchi Abdomen: Soft, nondistended, nontender Extremities: Again lower extremity do not reveal any significant pitting edema Assessment and plan: s/p Sepsis - 2/2 MSSA bacteremia with septic emboli to lungs, prostate abscess, R proximal arm abscess, R acromioclavicular joint abscess - Hemodynamically stable and afebrile - Leukocytosis persists / CRP continues to improved - Blood cultures 12/28: MSSA; Negative starting on 12/30 - Repeat blood cultures 01/11: Negative at 48 hours - CONCEPCION no vegetations. EF of 65%, lipomatous hypertrophy of the atrial septum no RWMA - c/w Zosyn (Day #3); s/p Cefazolin; PICC line in place - ID on consultation; appreciate their input - Anticipate the patient will require rehabilitation moving forward Reported cough - possibly pneumonia - Patient denies any significant shortness breath or cough. Today - On 01/11 patient had reported a productive cough - CT Chest 5/5: 1. Chronic elevation to the right hemidiaphragm and to the significant opacity on recent x-rays. However, there is new right lower lobe consolidation with air bronchograms and small to moderate right pleural effusion which appear increased from 12/30/2020. 2. Scattered bilateral rounded opacities are again noted which have relatively rapidly increased as compared with 12/23/2020 and are most suggestive of septic emboli/multifocal pneumonia. Differential diagnosis less likely includes metastatic disease. - Procalcitonin essentially negative - c/w Zosyn (Day #3) s/p Right acromioclavicular joint abscess and possible OM of the distal clavicle/ Right prox arm abscess. - Has had had Exploration in OR, I&D on 01/05/21 - c/w Percocet for pain control - Discussed MRI findings of bilateral of shoulder with Dr. Armstrong; plan for aspiration of left shoulder today for evaluation Prostate abscess / s/p Urinary retention - s/p cystoscopy, right retrograde pyelogram, right ureteral stent placement, TURP prostate abscess on 12/31/20 - Richmond catheter re-inserted on 01/13 for retention and will remain in place until evaluated by urology - Urology on consultation Bilateral hydronephrosis and hydroureter - 2/2 prostate abscess and trigonal inflammation - Had cysto with left ureteral stent placement on 12/25/20. Cysto showed severe inflammation of the trigone causing occlusion of the left ureteral orifice. - Again had cystoscopy, right retrograde pyelogram, right ureteral stent placement, TURP prostate abscess on 12/31/20 - Patient has left ureteral double J stent placed on 12/25/20 and right stent placement on 12/31/20 - Urology on consultation Normocytic anemia - likely 2/2 anemia of chronic disease - No evidence of bleed - Iron panel, Vitamin b12, folate, Haptoglobin, LDH - noted - s/p 2 units PRBC - Hg improved; appears stable s/p Acute renal failure - Renal function has normalized IDDM2 - s/p DKA and Insulin drip - c/w Levemir and ISS Stage II ulcer on the left lateral supramalleolar region - c/w Wound care s/p Hypernatremia CAD s/p CABG (2014) - c/w Atorvastatin, Clopidogrel, Metoprolol Elevated troponin - likely 2/2 demand ischemia - Denied any chest pain - EKG reviewed DLP - c/w Atorvastatin Hypertension - BP still elevated today - c/w Amlodipine, Metoprolol, Hydralazine, Lisinopril GERD - c/w Protonix DVT prophylaxis - c/w TEDs / Sequentials Disposition: - Awaiting clinical improvement VS,Fishbone, I+O VS, Fishbone, I+O Laboratory Tests 01/14/21 05:35 Vital Signs Date Time Temp Pulse Resp B/P (MAP) Pulse Ox O2 Delivery O2 Flow Rate FiO2 01/14/21 10:31 16 01/14/21 09:54 98 169/83 01/14/21 06:00 98.4 90 Room Air 01/10/21 21:00 2.0 I&O- Last 24 Hours up to 6 AM 01/14/21 06:00 Intake Total 2230 ml Output Total 1800 ml Balance 430 ml MONIKA SARGENT MD January 14, 2021 12:20
[2021-01-14 14:00] VITALS: BP 158/81
[2021-01-14 22:00] VITALS: BP 160/69
[2021-01-15] MEDS: PIPERACILLIN/TAZOBACTAM SOD 3.375 GM in D5W MINI-BAG PLUS 50 ML IV SCH ×4 (05:10→23:42)
[2021-01-15] MEDS: **hydrALAZINE** 50 MG TAB PO SCH ×4 (05:12→23:43)
[2021-01-15] MEDS: SODIUM CHLORIDE 0.9% INJ 10 ML SYR IV SCH ×2 (05:12→18:25)
[2021-01-15 05:35] LABS: BASO # 0.1 10^3/uL (0.0-0.2); BASO % 0.5 % (0.0-1.0); EOS # 0.8 10^3/uL (0.0-0.5); EOS % 7.8 % (0.0-3.0); HEMATOCRIT 27.8 % (42.0-52.0); HEMOGLOBIN 8.8 g/dl (13.5-17.5); LYMPH # 1.5 10^3/uL (1.5-5.0); LYMPH % 14.6 % (24.0-44.0); MEAN CORPUSCULAR HEMOGLOBIN 28.1 pg (27.0-33.0); MEAN CORPUSCULAR HGB CONC 31.7 g/dl (32.0-36.5); MEAN CORPUSCULAR VOLUME 88.8 fl (80.0-96.0); MONO % 9.8 % (2.0-8.0); NEUTROPHILS # 6.9 10^3/uL (1.5-8.5); NEUTROPHILS % 66.8 % (36.0-66.0); PLATELET COUNT, AUTOMATED 406 10^3/uL (150-450); RED BLOOD COUNT 3.13 10^6/uL (4.30-6.10); WHITE BLOOD COUNT 10.3 10^3/uL (4.0-10.0)
[2021-01-15 06:00] VITALS: BP 142/73
[2021-01-15 06:06] LABS: ALBUMIN 1.3 GM/DL (3.2-5.2); ALT/SGPT 8 U/L (12-78); BILIRUBIN,TOTAL 0.3 MG/DL (0.2-1.0); BLOOD UREA NITROGEN 15 MG/DL (7-18); C REACTIVE PROTEIN QUANTITATIV 9.67 MG/DL (0.00-0.30); CALCIUM LEVEL 7.4 MG/DL (8.5-10.1); CARBON DIOXIDE LEVEL 25 MEQ/L (21-32); CHLORIDE LEVEL 112 MEQ/L (98-107); CREATININE FOR GFR 1.17 MG/DL (0.70-1.30); GLOMERULAR FILTRATION RATE > 60.0 (>60); GLUCOSE, FASTING 118 MG/DL (70-100); MAGNESIUM LEVEL 1.9 MG/DL (1.8-2.4); POTASSIUM SERUM 3.7 MEQ/L (3.5-5.1); SODIUM LEVEL 141 MEQ/L (136-145); TOTAL PROTEIN 6.3 GM/DL (6.4-8.2)
[2021-01-15] MEDS: LEVEMIR (INSULIN DETEMIR) 1 UNITS/0.01ML SC SCH ×2 (07:59→21:48)
[2021-01-15] MEDS: HumaLOG INSULIN (NovoLOG) PER UNIT SC SCH ×4 (08:01→21:00)
[2021-01-15 09:30] VITALS: BP 140/72
--- NOTE | 2021-01-15 09:31 | IPNPDOC ---
Text Note Date of Service The patient was seen on 01/15/21. NOTE Subjective: Patient is a 50-year-old male with a PMHx of CAD s/p CABG, IDDM2, DLP, resented to the emergency room with confusion. Patient was brought to the hospital via EMS. Upon arrival to emergency room, patient was found to be in DKA and was admitted to the ICU for further management. Patient subsequently was found to have MSSA bacteremia, suspected to be from a prostate abscess. This was compensated with septic emboli to the lungs and to his right acromioclavicular joint and right proximal arm abscess. 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 Patient had orthopedic surgery. See his right shoulder for incision and drainage. Patient was seen and examined at the bedside. Patient was sitting in bed, reporting that he had an uneventful evening denies any chest pain, shortness breath, palpitations. No nausea, vomiting, abdominal pain. Richmond catheter in place. Patient reports that he has been out of bed with physical therapy. Was asking whether physical therapy will be coming in today. Patient had his left shoulder evaluated by orthopedic surgery yesterday. Objective: Vitals (See below) General: She is lying in bed, appears comfortable, not in acute distress, fully oriented to person, place and time HEENT:AT, NC CVS: +S1S2 Lungs: Diminished lung sounds are regular basis without any wheezing, crackles or rhonchi Abdomen: Nondistended, nontender Extremities: Are without any pitting edema, left lower distal lateral extremity with dressing in place Assessment and plan: s/p Sepsis - 2/2 MSSA bacteremia with septic emboli to lungs, prostate abscess, R proximal arm abscess, R acromioclavicular joint abscess - Hemodynamically stable and afebrile - Leukocytosis and CRP are improving - Blood cultures 12/28: MSSA; Negative starting on 12/30 - Repeat blood cultures 01/11: Negative at 72 hours - CONCEPCION no vegetations. EF of 65%, lipomatous hypertrophy of the atrial septum no RWMA - c/w Zosyn (Day #4); s/p Cefazolin; PICC line in place - ID on consultation; appreciate their input - Anticipate the patient will require rehabilitation moving forward; c/w PT and OT Reported cough - possibly pneumonia - Denies shortness breath or cough. Today - On 01/11 patient had reported a productive cough - CT Chest 01/12: 1. Chronic elevation to the right hemidiaphragm and to the significant opacity on recent x-rays. However, there is new right lower lobe consolidation with air bronchograms and small to moderate right pleural effusion which appear increased from 12/30/2020. 2. Scattered bilateral rounded opacities are again noted which have relatively rapidly increased as compared with 2020 and are most suggestive of septic emboli/multifocal pneumonia. Differential diagnosis less likely includes metastatic disease. - Procalcitonin essentially negative - c/w Zosyn (Day #4) s/p Right acromioclavicular joint abscess and possible OM of the distal clavicle/ Right prox arm abscess. - Has had had Exploration in OR, I&D on 01/05/21 - R should culture: Cutibacterium Acnes (Few) - c/w Percocet for pain control - MRI of bilateral shoulders complete; reviewed with Orthopedic surgery - s/p Evaluation of L shoulder; no fluid could be aspirated on 01/14 - Dr. Armstrong on consultation; appreciate their input - c/w Antibiotics as sated above Prostate abscess / s/p Urinary retention - s/p cystoscopy, right retrograde pyelogram, right ureteral stent placement, TURP prostate abscess on 12/31/20 - Richmond catheter re-inserted on 01/13 for retention and will remain in place until evaluated by urology - Urology on consultation Bilateral hydronephrosis and hydroureter - 2/2 prostate abscess and trigonal inflammation - Had cysto with left ureteral stent placement on 12/25/20. Cysto showed severe inflammation of the trigone causing occlusion of the left ureteral orifice. - Again had cystoscopy, right retrograde pyelogram, right ureteral stent placement, TURP prostate abscess on 12/31/20 - Patient has left ureteral double J stent placed on 12/25/20 and right stent placement on 12/31/20 - Urology on consultation Normocytic anemia - likely 2/2 anemia of chronic disease - No evidence of bleed - Iron panel, Vitamin b12, folate, Haptoglobin, LDH - noted - s/p 2 units PRBC - Hg improved; appears stable s/p Acute renal failure - Renal function has normalized IDDM2 - s/p DKA and Insulin drip - c/w Levemir and ISS Stage II ulcer on the left lateral supramalleolar region - c/w Wound care s/p Hypernatremia CAD s/p CABG (2014) - c/w Atorvastatin, Clopidogrel, Metoprolol Elevated troponin - likely 2/2 demand ischemia - Denied any chest pain - EKG reviewed DLP - c/w Atorvastatin Hypertension - BP better controlled today - c/w Amlodipine, Metoprolol, Hydralazine, Lisinopril GERD - c/w Protonix DVT prophylaxis - c/w TEDs / Sequentials Disposition: - Awaiting clinical improvement VS,Santhosh, I+O VS, Santhosh I+O Laboratory Tests 01/15/21 05:14 Vital Signs Date Time Temp Pulse Resp B/P (MAP) Pulse Ox O2 Delivery O2 Flow Rate FiO2 01/15/21 06:00 97.5 85 18 142/73 (96) 95 Room Air 01/10/21 21:00 2.0 I&O- Last 24 Hours up to 6 AM 01/15/21 06:00 Intake Total 2225 ml Output Total 2630 ml Balance -405 ml MONIKA SARGENT MD January 15, 2021 09:31
[2021-01-15] MEDS: CLOPIDOGREL 75 MG TAB PO SCH (10:53)
[2021-01-15] MEDS: PANTOPRAZOLE 40MG TAB (PROTONIX) PO SCH (10:54)
[2021-01-15] MEDS: ATORVASTATIN 20 MG TAB PO SCH (10:55)
[2021-01-15] MEDS: METOPROLOL TART 25 MG TABLET PO SCH ×2 (10:56→21:47)
[2021-01-15] MEDS: TAMSULOSIN 0.4 MG CAP PO SCH (10:58)
[2021-01-15] MEDS: SENOKOT S TAB PO SCH ×2 (11:00→21:45)
[2021-01-15] MEDS: MOM 30ML SUSPENSION UDC PO SCH (11:00)
--- NOTE | 2021-01-15 11:11 | IPN ---
INFECTIOUS DISEASE PROGRESS NOTE DATE: 01/14/2021 SUBJECTIVE: Bernardo seems to be doing well. He is in good spirits. He sat up in the bed to be examined. He complains of his shoulder pain, especially of his right shoulder more than his left, but he also has very limited range of motion on the left. He denies any shortness of breath. He has a mild cough, nonproductive. No fever or chills, nausea or vomiting or diarrhea. He has a catheter back in place, as he had urinary incontinence. PHYSICAL EXAMINATION: Temperature 99.1, pulse 83, respirations 17, blood pressure 133/81, oxygen saturation 93% on room air. HEART: Normal S1, S2. Systolic ejection murmur 2/6, unchanged. LUNGS: Diminished breath sounds at the bases, but clear. ABDOMEN: Soft, nontender. No hepatosplenomegaly. EXTREMITIES: No clubbing, cyanosis or edema. Right shoulder swollen with surgical scar and sutures in place in four different areas. Patient cannot abduct his shoulder and has edema with tenderness along the muscle. Left shoulder: He is able to do flexion to 90 degrees and extension to 60 degrees, but he has very limited abduction, 20-30 degrees. SKIN: Diffuse vitiligo on upper and lower body. He has an ulcer on the left leg, 2 cm x 1 cm, superficial, with no surrounding cellulitis or purulence. LABORATORY DATA: White count 12.2, hemoglobin 8.9, hematocrit 28.2, platelets 432, 62% neutrophils, 20% lymphocytes, 1% monocytes. Sodium 139, potassium 3.7, chloride 110, bicarbonate 24, BUN 18, creatinine 1.24, glucose 98, calcium 7.8, magnesium 1.8. C-reactive protein (CRP) 9.95, down from 11.3. Methicillin-resistant Staphylococcus aureus (MRSA) screen was negative on 01/12/2021. SARS-CoV-2 on 12/31 was negative. Blood cultures two sets on 01/11/2021 were no growth after 72 hours. IMPRESSION: 1. Staphylococcus aureus sepsis resolved with prostatic abscess. Bilateral stents placed. Septic emboli to the lungs. Was on intravenous (IV) cefazolin Currently on Zosyn due to superimposed hospital-acquired pneumonia. Patient has bilateral seeding of his shoulders with new findings on the subdeltoid bursa on the left side that may need further intervention. Patient has very limited range of motion of both shoulders. He is being reevaluated by Dr. Armstrong this afternoon. 2. Cough with fever. Probably hospital-acquired pneumonia. Patient was switched to IV Zosyn with improvement. He has a chronic elevation of the right hemidiaphragm and a small effusion on the right side. We reviewed the CT with Dr. Ann, but we did not think it was a big effusion that needed drainage, especially without a fever or pleurisy. 3. Bilateral shoulder infection. Patient is being evaluated by orthopedic surgery. Patient with limited range of motion. 4. Prostatic abscess with secondary urinary retention. Bilateral stents from hydronephrosis. Keep Richmond catheter in place until he is evaluated as outpatient by urology. PLAN: Continue IV Zosyn for hospital-associated pneumonia for a total of seven days, currently on day #3 out of 7, then switch back to IV cefazolin 2 grams every 8 hours. Consider aspiration of left shoulder subdeltoid bursa to make sure he does not have an infected bursa. Will follow up chest x-ray to make sure his effusion does not worsen and may need drainage. HUMBERTO
--- NOTE | 2021-01-15 12:22 | CR ---
CONSULTATION DATE: 01/14/2021 CONSULTING SERVICE: Orthopedic surgery. CONSULTING PHYSICIAN: Porfirio Armstrong MD. HISTORY OF PRESENT ILLNESS: This is a 50-year-old male who is consulted for left shoulder pain. The patient has a complicated past medical history to include coronary artery disease, CABG, diabetes mellitus, and hyperlipidemia. The patient initially presented on 12/23/2020, with lethargy and altered mental status. The patient was found on the street by EMS. The patient stated he had run out of his diabetic medication one week prior. The patient initially complained of weakness and pain to the right upper extremity. He had a previous MRI consistent with myositis and local edema worrisome for septic subacromial space and myositis of the right shoulder. He underwent an arthroscopic irrigation and debridement of the right subacromial space, AC joint, and posterior aspect of his arm. This was documented in the previous operative report. The internal medicine team was concerned regarding his left shoulder as he had minimal pain to the left shoulder. Given his edematous state and fluid buildup, this is unlikely to be a septic subacromial space; however, given the MRI reading and mild pain, the hospitalist was concerned about a left septic subacromial space. Orthopedic surgery was consulted for the aforementioned for further evaluation and treatment. PAST MEDICAL HISTORY: 1. Diabetes. 2. Acute renal failure. 3. Ulceration of the left lower extremity. 4. Coronary artery disease status post CABG two to three years prior. 5. Elevated troponin. 6. Hyperlipidemia. 7. Hypertension. 8. Diabetes type 2. PAST SURGICAL HISTORY: CABG on an unknown date. ALLERGIES: No known drug allergies. CURRENT MEDICATIONS: 1. Atorvastatin. 2. Clopidogrel. 3. Lisinopril. 4. Metoprolol. 5. Jardiance. 6. Empagliflozin. SOCIAL HISTORY: The patient is a nonsmoker, nondrinker, and non IV drug user. REVIEW OF SYSTEMS: 14-point review of systems was negative unless otherwise described in the HPI above. PHYSICAL EXAMINATION: GENERAL: Alert to person, time, and place. EXTREMITIES: Left upper extremity mild edema of the left shoulder with no crepitants. On palpation of the patient's left shoulder, he did have minimal tenderness to palpation about the subacromial space on the lateral aspect of the acromion. The left upper extremity had 5/5 motor strength to the musculocutaneous, axillary, radial, median, and ulnar nerve distributions and the musculature pertaining thereto. Sensation was intact to light touch to the musculocutaneous, axillary, radial, median, and ulnar nerve distributions. The patient had 2+ radial and ulnar pulse with brisk capillary refill to the digits. IMAGING DATA: Left shoulder MRI significant for edema within the subacromial space and within the muscle consistent with either a myositis or edema within the subacromial space with concern for possible septic fluid within the subacromial space. IMPRESSION: A 50-year-old male with concern for left subacromial fluid collection; rule out septic subacromial space. The patient had previous right shoulder surgery for irrigation and debridement for suspected subacromial space abscess collection. PLAN: At this point in time given the patient's several medical issues and complicated medical past, I do believe that we should workup the left shoulder subacromial space fluid collection with an aspiration. This was performed using sterile technique and was consented for. This aspiration yielded zero fluid. This was a dry tap likely because the fluid collection was most likely not consistent with a septic subacromial space. The plan at this point moving forward given the patient's strength and very minimal pain in the left upper extremity, I do not think it was a septic subacromial space abscess. I do believe he is likely feeling deconditioning of that left shoulder, as well as myositis. The patient's left shoulder actually felt much improved since the last time I had seen him. We will continue to observe the patient's left shoulder and if it becomes concerning for a septic process, we will be more than happy to perform an arthroscopic versus open irrigation and debridement. However, at this point given his decrease in trends and his inflammatory markers, I do feel like he is a good candidate for observation at this point in time. The plan will be to continue to follow him clinically, as well as his inflammatory markers and remove the right shoulder nylon stitches on 01/18/2021.
[2021-01-15 14:00] VITALS: BP 164/67
[2021-01-15] MEDS: PERCOCET 5MG/325MG TAB PO PRN (21:46)
[2021-01-15 22:00] VITALS: BP 170/92
[2021-01-16] MEDS: **hydrALAZINE** 50 MG TAB PO SCH ×4 (05:34→23:57)
[2021-01-16] MEDS: PIPERACILLIN/TAZOBACTAM SOD 3.375 GM in D5W MINI-BAG PLUS 50 ML IV SCH ×4 (05:35→23:58)
[2021-01-16] MEDS: SODIUM CHLORIDE 0.9% INJ 10 ML SYR IV SCH ×2 (05:35→18:24)
[2021-01-16 05:58] LABS: BASO # 0.1 10^3/uL (0.0-0.2); BASO % 0.6 % (0.0-1.0); EOS # 0.8 10^3/uL (0.0-0.5); EOS % 7.7 % (0.0-3.0); HEMATOCRIT 28.6 % (42.0-52.0); HEMOGLOBIN 8.8 g/dl (13.5-17.5); LYMPH # 2.2 10^3/uL (1.5-5.0); LYMPH % 21.7 % (24.0-44.0); MEAN CORPUSCULAR HEMOGLOBIN 27.4 pg (27.0-33.0); MEAN CORPUSCULAR HGB CONC 30.8 g/dl (32.0-36.5); MEAN CORPUSCULAR VOLUME 89.1 fl (80.0-96.0); MONO # 1.1 10^3/uL (0.0-0.8); MONO % 10.7 % (2.0-8.0); NEUTROPHILS # 5.9 10^3/uL (1.5-8.5); PLATELET COUNT, AUTOMATED 418 10^3/uL (150-450); RED BLOOD COUNT 3.21 10^6/uL (4.30-6.10); WHITE BLOOD COUNT 10.1 10^3/uL (4.0-10.0)
[2021-01-16 06:00] VITALS: BP 151/84
[2021-01-16 06:29] LABS: ALBUMIN 1.4 GM/DL (3.2-5.2); ALT/SGPT 9 U/L (12-78); BILIRUBIN,TOTAL 0.3 MG/DL (0.2-1.0); BLOOD UREA NITROGEN 15 MG/DL (7-18); C REACTIVE PROTEIN QUANTITATIV 8.61 MG/DL (0.00-0.30); CALCIUM LEVEL 7.5 MG/DL (8.5-10.1); CARBON DIOXIDE LEVEL 23 MEQ/L (21-32); CHLORIDE LEVEL 112 MEQ/L (98-107); GLOMERULAR FILTRATION RATE > 60.0 (>60); GLUCOSE, FASTING 87 MG/DL (70-100); MAGNESIUM LEVEL 1.9 MG/DL (1.8-2.4); POTASSIUM SERUM 3.8 MEQ/L (3.5-5.1); SODIUM LEVEL 141 MEQ/L (136-145); TOTAL PROTEIN 6.4 GM/DL (6.4-8.2)
[2021-01-16] MEDS: HumaLOG INSULIN (NovoLOG) PER UNIT SC SCH ×4 (07:24→21:00)
[2021-01-16] MEDS: LEVEMIR (INSULIN DETEMIR) 1 UNITS/0.01ML SC SCH ×2 (09:00→20:08)
[2021-01-16] MEDS: MOM 30ML SUSPENSION UDC PO SCH (09:00)
[2021-01-16] MEDS: SENOKOT S TAB PO SCH ×2 (09:00→20:07)
--- NOTE | 2021-01-16 09:39 | IPNPDOC ---
Text Note Date of Service The patient was seen on 01/16/21. NOTE Subjective: Patient is a 50-year-old male with a PMHx of CAD s/p CABG, IDDM2, DLP, resented to the emergency room with confusion. Patient was brought to the hospital via EMS. Upon arrival to emergency room, patient was found to be in DKA and was admitted to the ICU for further management. Patient subsequently was found to have MSSA bacteremia, suspected to be from a prostate abscess. This was compensated with septic emboli to the lungs and to his right acromioclavicular joint and right proximal arm abscess. 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 Patient had orthopedic surgery. See his right shoulder for incision and drainage. Patient was seen and examined at the bedside. . Patient again denies any shortness of breath, any productive cough, chest pain, palpitations, nausea, vomiting, abdominal pain or constipation. Did report a single bowel movement yesterday that was described as loose. Patient has a Richmond catheter is in place. Objective: Vitals (See below) General: Sitting up in bed, appears comfortable, not in any acute distress, oriented to person, place and time HEENT: NC, AT CVS: +S1S2 Lungs: Air entry is fair bilaterally without any evidence of wheezing, crackles or rhonchi on auscultation Abdomen: Abdomen remains soft without any patient tenderness or distention Extremities: Lower extremities do not reveal any significant edema, left leg with dressing in place Assessment and plan: s/p Sepsis - 2/2 MSSA bacteremia with septic emboli to lungs, prostate abscess, R proximal arm abscess, R acromioclavicular joint abscess - No fevers / remains hemodynamically stable - Leukocytosis and CRP continue to down trend - Blood cultures 12/28: MSSA; Negative starting on 12/30 - Repeat blood cultures 01/11: Negative at 72 hours - CONCEPCION no vegetations. EF of 65%, lipomatous hypertrophy of the atrial septum no RWMA - c/w Zosyn (Day #5); s/p Cefazolin - will resume after 7 days of Zosyn; PICC line in place - ID on consultation; appreciate their input - Anticipate the patient will require rehabilitation moving forward; c/w PT and OT Reported cough - possibly pneumonia - Denies shortness breath or cough. Today - On 01/11 patient had reported a productive cough - CT Chest 01/12: 1. Chronic elevation to the right hemidiaphragm and to the significant opacity on recent x-rays. However, there is new right lower lobe consolidation with air bronchograms and small to moderate right pleural effusion which appear increased from 12/30/2020. 2. Scattered bilateral rounded opacities are again noted which have relatively rapidly increased as compared with 12/23/2020 and are most suggestive of septic emboli/multifocal pneumonia. Differential diagnosis less likely includes metastatic disease. - Procalcitonin essentially negative - c/w Zosyn (Day #5) s/p Right acromioclavicular joint abscess and possible OM of the distal clavicle/ Right prox arm abscess. - Has had had Exploration in OR, I&D on 01/05/21 - R should culture: Cutibacterium Acnes (Few) - MRI of bilateral shoulders complete; reviewed with Orthopedic surgery - s/p Evaluation of L shoulder; no fluid could be aspirated on 01/14 - c/w Percocet for pain control - c/w Antibiotics as sated above - Dr. Armstrong on consultation; appreciate their input Prostate abscess / s/p Urinary retention - s/p cystoscopy, right retrograde pyelogram, right ureteral stent placement, TURP prostate abscess on 12/31/20 - Richmond catheter re-inserted on 01/13 for retention and will remain in place until evaluated by urology - Urology on consultation Bilateral hydronephrosis and hydroureter - 2/2 prostate abscess and trigonal inflammation - Had cysto with left ureteral stent placement on 12/25/20. Cysto showed severe inflammation of the trigone causing occlusion of the left ureteral orifice. - Again had cystoscopy, right retrograde pyelogram, right ureteral stent placement, TURP prostate abscess on 12/31/20 - Patient has left ureteral double J stent placed on 12/25/20 and right stent placement on 12/31/20 - Urology on consultation Normocytic anemia - likely 2/2 anemia of chronic disease - No evidence of bleed - Iron panel, Vitamin b12, folate, Haptoglobin, LDH - noted - s/p 2 units PRBC - Hg improved; appears stable s/p Acute renal failure - Renal function has normalized IDDM2 - s/p DKA and Insulin drip - c/w Levemir and ISS Stage II ulcer on the left lateral supramalleolar region - c/w Wound care s/p Hypernatremia CAD s/p CABG (2014) - c/w Atorvastatin, Clopidogrel, Metoprolol Elevated troponin - likely 2/2 demand ischemia - Denied any chest pain - EKG reviewed DLP - c/w Atorvastatin Hypertension - BP better controlled today - c/w Amlodipine, Metoprolol, Hydralazine, Lisinopril GERD - c/w Protonix DVT prophylaxis - c/w TEDs / Sequentials Disposition: - Awaiting clinical improvement VS,Santhosh, I+O VS, Santhosh I+O Laboratory Tests 01/16/21 05:41 Vital Signs Date Time Temp Pulse Resp B/P (MAP) Pulse Ox O2 Delivery O2 Flow Rate FiO2 01/16/21 06:00 98.5 82 18 151/84 (106) 93 Room Air 01/10/21 21:00 2.0 I&O- Last 24 Hours up to 6 AM 01/16/21 06:00 Intake Total 1610 ml Output Total 1500 ml Balance 110 ml MONIKA SARGENT MD January 16, 2021 09:39
[2021-01-16] MEDS: CLOPIDOGREL 75 MG TAB PO SCH (09:58)
[2021-01-16] MEDS: TAMSULOSIN 0.4 MG CAP PO SCH (09:58)
[2021-01-16] MEDS: ATORVASTATIN 20 MG TAB PO SCH (09:58)
[2021-01-16] MEDS: PANTOPRAZOLE 40MG TAB (PROTONIX) PO SCH (09:58)
[2021-01-16] MEDS ORDERED: NS 1,000 ML IV SCH (10:00)
[2021-01-16] MEDS: METOPROLOL TART 25 MG TABLET PO SCH ×2 (10:02→20:07)
[2021-01-16] MEDS: LACTOBACILLUS ACIDOPHILUS CAP (BACID) PO SCH ×2 (13:07→20:07)
[2021-01-16 14:00] VITALS: BP 143/71
[2021-01-16 22:00] VITALS: BP 135/65
[2021-01-16] MEDS: SODIUM CHLORIDE 0.9% INJ 10 ML SYR IV PRN (23:58)
[2021-01-17] MEDS: PIPERACILLIN/TAZOBACTAM SOD 3.375 GM in D5W MINI-BAG PLUS 50 ML IV SCH ×4 (05:50→23:46)
[2021-01-17] MEDS: **hydrALAZINE** 50 MG TAB PO SCH ×4 (05:50→23:49)
[2021-01-17] MEDS: SODIUM CHLORIDE 0.9% INJ 10 ML SYR IV SCH ×2 (05:51→17:30)
[2021-01-17 06:00] VITALS: BP 159/82
[2021-01-17 07:21] LABS: BASO # 0.1 10^3/uL (0.0-0.2); BASO % 0.7 % (0.0-1.0); EOS # 0.5 10^3/uL (0.0-0.5); EOS % 4.4 % (0.0-3.0); HEMATOCRIT 28.4 % (42.0-52.0); HEMOGLOBIN 8.7 g/dl (13.5-17.5); LYMPH # 2.1 10^3/uL (1.5-5.0); LYMPH % 19.9 % (24.0-44.0); MEAN CORPUSCULAR HEMOGLOBIN 27.5 pg (27.0-33.0); MEAN CORPUSCULAR HGB CONC 30.6 g/dl (32.0-36.5); MEAN CORPUSCULAR VOLUME 89.9 fl (80.0-96.0); MONO % 9.4 % (2.0-8.0); NEUTROPHILS # 6.7 10^3/uL (1.5-8.5); NEUTROPHILS % 65.2 % (36.0-66.0); PLATELET COUNT, AUTOMATED 407 10^3/uL (150-450); RED BLOOD COUNT 3.16 10^6/uL (4.30-6.10); WHITE BLOOD COUNT 10.3 10^3/uL (4.0-10.0)
[2021-01-17 07:24] LABS: BLOOD UREA NITROGEN 13 MG/DL (7-18); C REACTIVE PROTEIN QUANTITATIV 7.67 MG/DL (0.00-0.30); CALCIUM LEVEL 8.3 MG/DL (8.5-10.1); CARBON DIOXIDE LEVEL 23 MEQ/L (21-32); CHLORIDE LEVEL 113 MEQ/L (98-107); CREATININE FOR GFR 1.26 MG/DL (0.70-1.30); GLOMERULAR FILTRATION RATE > 60.0 (>60); GLUCOSE, FASTING 112 MG/DL (70-100); MAGNESIUM LEVEL 1.8 MG/DL (1.8-2.4); POTASSIUM SERUM 3.6 MEQ/L (3.5-5.1); SODIUM LEVEL 141 MEQ/L (136-145)
[2021-01-17] MEDS: MOM 30ML SUSPENSION UDC PO SCH (09:00)
[2021-01-17] MEDS: LEVEMIR (INSULIN DETEMIR) 1 UNITS/0.01ML SC SCH ×2 (09:00→21:41)
[2021-01-17] MEDS: ATORVASTATIN 20 MG TAB PO SCH (09:12)
[2021-01-17] MEDS: CLOPIDOGREL 75 MG TAB PO SCH (09:13)
[2021-01-17] MEDS: SENOKOT S TAB PO SCH ×2 (09:13→21:00)
[2021-01-17] MEDS: LACTOBACILLUS ACIDOPHILUS CAP (BACID) PO SCH ×2 (09:13→21:41)
[2021-01-17] MEDS: PANTOPRAZOLE 40MG TAB (PROTONIX) PO SCH (09:14)
[2021-01-17] MEDS: TAMSULOSIN 0.4 MG CAP PO SCH (09:16)
[2021-01-17] MEDS: METOPROLOL TART 25 MG TABLET PO SCH ×2 (09:16→21:41)
[2021-01-17] MEDS: HumaLOG INSULIN (NovoLOG) PER UNIT SC SCH ×4 (09:16→21:00)
--- NOTE | 2021-01-17 10:15 | IPNPDOC ---
Text Note Date of Service The patient was seen on 01/17/21. NOTE Subjective: Patient is a 50-year-old male with a PMHx of CAD s/p CABG, IDDM2, DLP, resented to the emergency room with confusion. Patient was brought to the hospital via EMS. Upon arrival to emergency room, patient was found to be in DKA and was admitted to the ICU for further management. Patient subsequently was found to have MSSA bacteremia, suspected to be from a prostate abscess. This was compensated with septic emboli to the lungs and to his right acromioclavicular joint and right proximal arm abscess. 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 Patient had orthopedic surgery. See his right shoulder for incision and drainage. Patient was seen and examined at the bedside. Patient reports another uneventful. He denies any chest pain, shortness breath, palpitations, nausea, vomiting, abdominal pain or diarrhea. Patient has a Richmond catheter that is in place with some leakage around the sides Objective: Vitals (See below) General: Patient is lying in bed, appears to be comfortable, not in any acute distress, oriented to person, place and time HEENT: Atraumatic and normocephalic CVS: +S1S2 Lungs: There appears to be fair air entry bilaterally without any evidence of wheezing or crackles on auscultation Abdomen: Again, patient's abdomen is soft without any appreciated tenderness or distention Extremities: There is 1+ pitting edema of his feet bilaterally Assessment and plan: s/p Sepsis - 2/2 MSSA bacteremia with septic emboli to lungs, prostate abscess, R proximal arm abscess, R acromioclavicular joint abscess - No fevers / remains hemodynamically stable - WBC and inflammatory markers have been trending down - Blood cultures 12/28: MSSA; Negative starting on 12/30; Repeat blood cultures 01/11: Negative - CONCEPCION no vegetations. EF of 65%, lipomatous hypertrophy of the atrial septum no RWMA - c/w Zosyn (Day #6); s/p Cefazolin - will resume after 7 days of Zosyn; PICC line in place - ID on consultation; appreciate their input - c/w PT and OT - may ultimately be cleared by physical therapy Reported cough - possibly pneumonia - Denies shortness of breath or productive cough - On 01/11 patient had reported a productive cough - CT Chest 01/12: 1. Chronic elevation to the right hemidiaphragm and to the significant opacity on recent x-rays. However, there is new right lower lobe consolidation with air bronchograms and small to moderate right pleural effusion which appear increased from 12/30/2020. 2. Scattered bilateral rounded opacities are again noted which have relatively rapidly increased as compared with 12/23/2020 and are most suggestive of septic emboli/multifocal pneumonia. Differential diagnosis less likely includes metastatic disease. - Procalcitonin essentially negative - c/w Zosyn (Day #6) s/p Right acromioclavicular joint abscess and possible OM of the distal clavicle/ Right prox arm abscess. - Has had had Exploration in OR, I&D on 01/05/21 - R should culture: Cutibacterium Acnes (Few) - MRI of bilateral shoulders complete; reviewed with Orthopedic surgery - s/p Evaluation of L shoulder; no fluid could be aspirated on 01/14 - c/w Percocet for pain control - c/w Antibiotics as sated above - Dr. Armstrong on consultation; appreciate their input; plan for removal of sutures tomorrow Prostate abscess / s/p Urinary retention - s/p cystoscopy, right retrograde pyelogram, right ureteral stent placement, TURP prostate abscess on 12/31/20 - Richmond catheter re-inserted on 01/13 for retention and will remain in place until evaluated by urology - Urology on consultation; will discuss with Urology about stent removal if appropriate Bilateral hydronephrosis and hydroureter - 2/2 prostate abscess and trigonal inflammation - Had cysto with left ureteral stent placement on 12/25/20. Cysto showed severe inflammation of the trigone causing occlusion of the left ureteral orifice. - Again had cystoscopy, right retrograde pyelogram, right ureteral stent p lacement, TURP prostate abscess on 12/31/20 - Patient has left ureteral double J stent placed on 12/25/20 and right stent placement on 12/31/20 - Urology on consultation Normocytic anemia - likely 2/2 anemia of chronic disease - No evidence of bleed - Iron panel, Vitamin b12, folate, Haptoglobin, LDH - noted - s/p 2 units PRBC - Hg improved; appears stable s/p Acute renal failure - Renal function has normalized - s/p IV fluids yesterday IDDM2 - s/p DKA and Insulin drip - c/w Levemir and ISS Stage II ulcer on the left lateral supramalleolar region - c/w Wound care s/p Hypernatremia CAD s/p CABG (2014) - c/w Atorvastatin, Clopidogrel, Metoprolol Elevated troponin - likely 2/2 demand ischemia - Denied any chest pain - EKG reviewed DLP - c/w Atorvastatin Hypertension - BP better controlled today - c/w Amlodipine, Metoprolol, Hydralazine, Lisinopril GERD - c/w Protonix DVT prophylaxis - c/w TEDs / Sequentials Disposition: - Awaiting clinical improvement VSSanthosh I+O VSSanthosh I+O Laboratory Tests 01/17/21 06:00 Vital Signs Date Time Temp Pulse Resp B/P (MAP) Pulse Ox O2 Delivery O2 Flow Rate FiO2 01/17/21 09:15 93 176/76 01/17/21 06:00 97.6 20 92 Room Air I&O- Last 24 Hours up to 6 AM 01/17/21 06:00 Intake Total 2660 ml Output Total 1750 ml Balance 910 ml MONIKA SARGENT MD January 17, 2021 10:15
[2021-01-17 14:00] VITALS: BP 184/88
--- NOTE | 2021-01-17 17:51 | IPNPDOC ---
Date Seen The patient was seen on 01/17/21. Progress Note INFECTIOUS DISEASE PROGRESS NOTE: SUBJECTIVE: Bernardo was seen and examined at the bedside this afternoon. He states he had just worked with PT and walked around his room with no issue. He had his left shoulder aspirated by orthopaedic surgery on 01/14/21 with Cutibacterium Acnes on wound culture. He has no complaints today other than questioning why PT has not worked on his shoulders as of yet. He was told he would need to work with OT. He has not had any fevers, chills, nausea/vomiting/diarrhea. OBJECTIVE VITAL SIGNS: see below GENERAL: shaking/shivering profusely, alert and oriented, in no apparent distress, conversant in full sentences. HEENT: PERRL, EOMI, Oral mucous membranes are moist without lesions. Teeth are in poor condition. NECK: The patient has no noted JVD. No adenopathy is appreciated. No thyromegaly CHEST/LUNGS: Lungs are clear bilaterally without rhonchi, rales, or wheezes. There is no subcutaneous air appreciated. There is no tenderness to the chest wall. HEART: Regular rate and rhythm. 2/6 LASHELL heard in RUSB. Distal pulses are 2+. No carotid bruits appreciated. ABDOMEN: Soft, nontender, and nondistended. Bowel sounds are positive. No organomegaly is appreciated. No masses are appreciated. There are no peritoneal signs. There is no Marion sign. EXTREMITIES: R shoulder with scar and sutures from recent procedure. No ROM in RUE observed. Patient holds his RUE flexed and against his body. LUE has about 90 degrees ROM but pain with abduction, good flexion and extension. No peripheral edema. There is no focal long bone tenderness or deformity. SKIN: The patients skin is warm and dry, with vitiligo diffusely and left leg 2cmx 1 cm ulcer laterally above malleolus clean . PSYCHIATRIC: AAO x 3, normal mood/affect NEUROLOGIC: No obvious focal deficits LABORATORY DATA, IMAGING STUDIES, MICROBIOLOGY: Please see below. ASSESSMENT AND PLAN: This is a 50 YO M with history of CAD s/p CABG, MSSA bacteremia complicated by R AC joint septic abscess s/p I&D, prostate abscess s/p TURP and septic pulmonary emboli who is currently undergoing antibiotic ther apy. PROBLEMS: 1. MSSA bacteremia complicated by R AC joint infection, prostatic abscess, septic emboli: -s/p IV Cefazolin Q8H(17 Days), now on Zosyn day 5 -Repeat blood cultures negative growth thus far 2. History of R shoulder AC joint septic abscess s/p I&D: -Repeat MRI left shoulder concerning for fluid accumulation, was aspirated with skin lissett on culture -Continue working with PT/OT. No concerning signs for acute infection 3. Prostate abscess s/p cystoscopy/pyelogram/TURP on 12/31: -Indwelling catheter per Urology recommendations. Hospitalist team reports that the plan is to have catheter removed 2 weeks from now in outpatient setting 4. History of septic pulmonary emboli: -CT chest on 01/12 demonstrated bilateral opacities that have increased in size as well as RLL consolidation and moderate R pleural effusion. -Patient is not hypoxic, no indication to drain at this time. VS, I&O, 24H, Fishbone Vital Signs/I&O Vital Signs Date Time Temp Pulse Resp B/P (MAP) Pulse Ox O2 Delivery O2 Flow Rate FiO2 01/17/21 17:27 184/89 01/17/21 14:00 98.7 83 20 95 Room Air I&O- Last 24 Hours up to 6 AM 01/17/21 06:00 Intake Total 2660 ml Output Total 1750 ml Balance 910 ml Laboratory Data 24H LABS Laboratory Tests 2 01/16/21 19:50: Bedside Glucose (Misc Panel) 161H 01/17/21 05:46: Bedside Glucose (Misc Panel) 114H 01/17/21 06:00: Immature Granulocyte % (Auto) 0.4, Neutrophils (%) (Auto) 65.2, Lymphocytes (%) (Auto) 19.9L, Monocytes (%) (Auto) 9.4H, Eosinophils (%) (Auto) 4.4H, Basophils (%) (Auto) 0.7, Neutrophils # (Auto) 6.7, Lymphocytes # (Auto) 2.1, Monocytes # (Auto) 1.0H, Eosinophils # (Auto) 0.5, Basophils # (Auto) 0.1, Nucleated Red Blood Cells % (auto) 0.0, Anion Gap 5L, Glomerular Filtration Rate > 60.0, Calcium Level 8.3L, Magnesium Level 1.8, C-Reactive Protein, Quantitative 7.67H 01/17/21 11:26: Bedside Glucose (Misc Panel) 109H 01/17/21 16:25: Bedside Glucose (Misc Panel) 153H CBC/BMP Laboratory Tests 01/17/21 06:00 Microbiology Microbiology 01/11/21 Blood Culture - Final, Complete NO GROWTH AFTER 5 DAYS 01/11/21 Blood Culture - Final, Complete NO GROWTH AFTER 5 DAYS GME ATTESTATION GME ATTESTATION My faculty preceptor for this patient encounter was physically present during the encounter and was fully available. All aspects of the patient interview, examination, medical decision making process, and medical care plan development were reviewed and approved by the faculty preceptor. The faculty preceptor is aware and concurs with the plan as stated in the body of this note and will attest to such by his/her cosignature. GRACE MARTÍNEZ MD January 17, 2021 17:51
[2021-01-17 22:00] VITALS: BP 152/90
[2021-01-18] MEDS: SODIUM CHLORIDE 0.9% INJ 10 ML SYR IV PRN ×2 (02:28→19:51)
[2021-01-18] MEDS: LEVALBUTEROL 1.25 MG/0.5 ML CONCENTRATE NEB INH PRN (02:36)
[2021-01-18] MEDS: PIPERACILLIN/TAZOBACTAM SOD 3.375 GM in D5W MINI-BAG PLUS 50 ML IV SCH ×4 (05:07→23:07)
[2021-01-18] MEDS: SODIUM CHLORIDE 0.9% INJ 10 ML SYR IV SCH ×2 (05:07→18:19)
[2021-01-18] MEDS: **hydrALAZINE** 50 MG TAB PO SCH ×4 (05:07→23:07)
[2021-01-18 06:00] VITALS: BP 179/83
[2021-01-18 06:36] LABS: BASO # 0.1 10^3/uL (0.0-0.2); BASO % 0.5 % (0.0-1.0); EOS # 0.4 10^3/uL (0.0-0.5); EOS % 3.6 % (0.0-3.0); HEMATOCRIT 27.9 % (42.0-52.0); HEMOGLOBIN 8.4 g/dl (13.5-17.5); LYMPH # 1.6 10^3/uL (1.5-5.0); LYMPH % 14.3 % (24.0-44.0); MEAN CORPUSCULAR HGB CONC 30.1 g/dl (32.0-36.5); MEAN CORPUSCULAR VOLUME 89.7 fl (80.0-96.0); MONO # 0.9 10^3/uL (0.0-0.8); MONO % 8.4 % (2.0-8.0); NEUTROPHILS # 8.1 10^3/uL (1.5-8.5); NEUTROPHILS % 72.8 % (36.0-66.0); PLATELET COUNT, AUTOMATED 415 10^3/uL (150-450); RED BLOOD COUNT 3.11 10^6/uL (4.30-6.10); WHITE BLOOD COUNT 11.2 10^3/uL (4.0-10.0)
[2021-01-18 07:01] LABS: BLOOD UREA NITROGEN 12 MG/DL (7-18); C REACTIVE PROTEIN QUANTITATIV 6.56 MG/DL (0.00-0.30); CALCIUM LEVEL 7.7 MG/DL (8.5-10.1); CARBON DIOXIDE LEVEL 23 MEQ/L (21-32); CHLORIDE LEVEL 114 MEQ/L (98-107); CREATININE FOR GFR 1.27 MG/DL (0.70-1.30); GLOMERULAR FILTRATION RATE > 60.0 (>60); GLUCOSE, FASTING 111 MG/DL (70-100); MAGNESIUM LEVEL 1.8 MG/DL (1.8-2.4); POTASSIUM SERUM 3.7 MEQ/L (3.5-5.1); SODIUM LEVEL 141 MEQ/L (136-145)
[2021-01-18] MEDS: LEVEMIR (INSULIN DETEMIR) 1 UNITS/0.01ML SC SCH ×2 (08:23→21:03)
[2021-01-18] MEDS: MOM 30ML SUSPENSION UDC PO SCH (09:00)
[2021-01-18] MEDS: SENOKOT S TAB PO SCH ×2 (09:00→21:00)
[2021-01-18] MEDS: CLOPIDOGREL 75 MG TAB PO SCH (09:17)
[2021-01-18] MEDS: PANTOPRAZOLE 40MG TAB (PROTONIX) PO SCH (09:17)
[2021-01-18] MEDS: LACTOBACILLUS ACIDOPHILUS CAP (BACID) PO SCH ×2 (09:17→21:04)
[2021-01-18] MEDS: ATORVASTATIN 20 MG TAB PO SCH (09:17)
[2021-01-18] MEDS: TAMSULOSIN 0.4 MG CAP PO SCH (09:17)
[2021-01-18] MEDS: METOPROLOL TART 25 MG TABLET PO SCH ×2 (09:18→21:04)
[2021-01-18] MEDS: HumaLOG INSULIN (NovoLOG) PER UNIT SC SCH ×4 (09:18→21:00)
--- NOTE | 2021-01-18 10:20 | IPNPDOC ---
Text Note Date of Service The patient was seen on 01/18/21. NOTE Subjective: Patient seen and examined at bedside. No acute overnight events reported. Patient voices no new medical complaints this morning. Still complains of cough at night. Objective: Vitals (See below) General: NAD, sitting comfortably at edge of bed HEENT: NC/AT, EOMI, poor dentition Lungs: CTA B/L Heart: +S1S2, RRR Extremities: There is 1+ pitting edema of his feet bilaterally A/P: 50M with a PMHx of CAD s/p CABG, IDDM2, DLP, resented to the emergency room with confusion. Patient was brought to the hospital via EMS. Upon arrival to emergency room, patient was found to be in DKA and was admitted to the ICU for further management. Patient subsequently was found to have MSSA bacteremia, suspected to be from a prostate abscess. This was compensated with septic emboli to the lungs and to his right acromioclavicular joint and right proximal arm abscess. 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 Patient had orthopedic surgery. See his right shoulder for incision and drainage. #s/p Sepsis - 2/2 MSSA bacteremia with septic emboli to lungs, prostate abscess, R proximal arm abscess, R acromioclavicular joint abscess - No fevers / remains hemodynamically stable - WBC and inflammatory markers have been trending down - Blood cultures 12/28: MSSA; Negative starting on 12/30; Repeat blood cultures 01/11: Negative - CONCEPCION no vegetations. EF of 65%, lipomatous hypertrophy of the atrial septum no RWMA - c/w Zosyn (Day #7); s/p Cefazolin - will resume after 7 days of Zosyn; PICC line in place - ID on consultation; appreciate their input - c/w PT and OT - may ultimately be cleared by physical therapy #Reported cough - possibly pneumonia - Denies shortness of breath or productive cough - On 01/11 patient had reported a productive cough - CT Chest 01/12: 1. Chronic elevation to the right hemidiaphragm and to the significant opacity on recent x-rays. However, there is new right lower lobe consolidation with air bronchograms and small to moderate right pleural effusion which appear increased from 12/30/2020. 2. Scattered bilateral rounded opacities are again noted which have relatively rapidly increased as compared with 12/23/2020 and are most suggestive of septic emboli/multifocal pneumonia. Differential diagnosis less likely includes metastatic disease. - c/w Zosyn (Day #7) #s/p Right acromioclavicular joint abscess and possible OM of the distal clavicle/ Right prox arm abscess. - Has had had Exploration in OR, I&D on 01/05/21 - R should culture: Cutibacterium Acnes (Few) - MRI of bilateral shoulders complete; reviewed with Orthopedic surgery - s/p Evaluation of L shoulder; no fluid could be aspirated on 01/14 - c/w Percocet for pain control - c/w Antibiotics as sated above - Dr. Armstrong on consultation; appreciate their input; plan for removal of sutures tomorrow #Prostate abscess / s/p Urinary retention - s/p cystoscopy, right retrograde pyelogram, right ureteral stent placement, TURP prostate abscess on 12/31/20 - [place] catheter re-inserted on 01/13 for retention and will remain in place until evaluated by urology - Urology on consultation; will discuss with Urology about stent removal if appropriate #Bilateral hydronephrosis and hydroureter - 2/2 prostate abscess and trigonal inflammation - Had cysto with left ureteral stent placement on 12/25/20. Cysto showed severe inflammation of the trigone causing occlusion of the left ureteral orifice. - Again had cystoscopy, right retrograde pyelogram, right ureteral stent kvng cement, TURP prostate abscess on 12/31/20 - Patient has left ureteral double J stent placed on 12/25/20 and right stent placement on 12/31/20 - Urology on consultation #Normocytic anemia - likely 2/2 anemia of chronic disease - in the setting of hematuria - discussed with urology, further eval pending - Iron panel, Vitamin b12, folate, Haptoglobin, LDH - noted - s/p 2 units PRBC - Hg improved; appears stable #s/p Acute renal failure - Renal function has normalized - s/p IV fluids yesterday #IDDM2 - s/p DKA and Insulin drip - c/w Levemir and ISS #Stage II ulcer on the left lateral supramalleolar region - c/w Wound care #s/p Hypernatremia #CAD s/p CABG (2015) - c/w Atorvastatin, Clopidogrel, Metoprolol #Elevated troponin - likely 2/2 demand ischemia - Denied any chest pain - EKG reviewed #DLP - c/w Atorvastatin #Hypertension - BP better controlled today - c/w Amlodipine, Metoprolol, Hydralazine, Lisinopril #GERD - c/w Protonix #DVT prophylaxis - c/w TEDs / Sequentials VS,Fishbone, I+O VS, Fishbone, I+O Laboratory Tests 01/18/21 06:20 Vital Signs Date Time Temp Pulse Resp B/P (MAP) Pulse Ox O2 Delivery O2 Flow Rate FiO2 01/18/21 09:17 98 168/74 01/18/21 06:00 98.9 18 92 Room Air I&O- Last 24 Hours up to 6 AM 01/18/21 06:00 Intake Total 1680 ml Output Total 1125 ml Balance 555 ml JUVENTINO DAVE MD January 18, 2021 10:20
[2021-01-18] MEDS: PERCOCET 5MG/325MG TAB PO PRN (10:51)
[2021-01-18 14:00] VITALS: BP 161/80
--- NOTE | 2021-01-18 17:53 | IPNPDOC ---
Subjective Review oF Systems Chief Complaint The patient is a 50-year-old male admitted with a reason for visit of Dka (Diabetic Ketocidoses). Events since Last Encounter The patient denies pain. He notes that he has been up more w/ PT today and as a result has had more hematuria. Denies fevers or chills. Objective Physical Examination General Exam: Alert, Cooperative, No Acute Distress Neuro Exam: Normal Speech Psych Exam: Mental status NL, Mood NL Other physical findings catheter in place draining dark pink urine Vital Signs/I&O Vital Signs Date Time Temp Pulse Resp B/P (MAP) Pulse Ox O2 Delivery O2 Flow Rate FiO2 01/18/21 14:00 98.3 76 16 161/80 (107) 94 Room Air I&O- Last 24 Hours up to 6 AM 01/18/21 06:00 Intake Total 1680 ml Output Total 1125 ml Balance 555 ml Laboratory Data Labs 24H Laboratory Tests 2 01/17/21 21:17: Bedside Glucose (Misc Panel) 198H 01/18/21 06:20: Immature Granulocyte % (Auto) 0.4, Neutrophils (%) (Auto) 72.8H, Lymphocytes (%) (Auto) 14.3L, Monocytes (%) (Auto) 8.4H, Eosinophils (%) (Auto) 3.6H, Basophils (%) (Auto) 0.5, Neutrophils # (Auto) 8.1, Lymphocytes # (Auto) 1.6, Monocytes # (Auto) 0.9H, Eosinophils # (Auto) 0.4, Basophils # (Auto) 0.1, Nucleated Red Blood Cells % (auto) 0.0, Anion Gap 4L, Glomerular Filtration Rate > 60.0, Calcium Level 7.7L, Magnesium Level 1.8, C-Reactive Protein, Quantitative 6.56H 01/18/21 12:07: Bedside Glucose (Misc Panel) 122H CBC/BMP Laboratory Tests 01/18/21 06:20 FSBS Laboratory Tests Test 01/17/21 21:17 01/18/21 12:07 Range/Units Bedside Glucose (Misc Panel) 198 122 70-105 MG/DL Microbiology Microbiology 01/11/21 Blood Culture - Final, Complete NO GROWTH AFTER 5 DAYS 01/11/21 Blood Culture - Final, Complete NO GROWTH AFTER 5 DAYS Assessment/Plan Date Seen The patient was seen on 01/18/21. Patient Summary This is a 50 y/o M who is s/p cysto w/ L ureteral stent placement on 12/25/20 for L hydro and right ureteral stent placement a transurethral resection of the prostate for R hydro and a prostate abscess on 12/31/20. I was asked to stop by to see the patient given the onset of hematuria over the last few days. His hematuria is mild and is expected given his recent urologic procedures and him being on plavix. He might continue to have intermittent hematuria until his stents and catheter are removed. His Hb has slowly drifted down but I suspect this is not related to his hematuria if it has not been any heavier than it is now. Plan/VTE VTE Prophylaxis Ordered?: Yes VTE Exclusion Mechanical Proph: N/A:VTE Prophy Ordered VTE Exclusion Pharmacological: N/A:VTE Prophy Ordered Plan/Urinary Catheter Reason for insertion/continuin: Acute obstruct/retention Plan - keep catheter gravity drainage and watch for signs of obstruction from a clot - ok to manually irrigate the catheter w/ NS if concerned for clot retention - ok to continue plavix - if concerned for significant hematuria (consistently bright red and forming clots) please call the urology service - will plan to keep the catheter in at the time of discharge and have the patient f/u in the urology clinic in a few wks for voiding trial and stent removal JEROD ALBA MD January 18, 2021 16:54
[2021-01-18 22:00] VITALS: BP 167/82
[2021-01-19] MEDS: SODIUM CHLORIDE 0.9% INJ 10 ML SYR IV PRN ×2 (00:24→20:03)
[2021-01-19] MEDS: RAMELTEON 8 MG TAB (ROZEREM) PO PRN (01:18)
[2021-01-19] MEDS: PIPERACILLIN/TAZOBACTAM SOD 3.375 GM in D5W MINI-BAG PLUS 50 ML IV SCH ×3 (05:03→18:26)
[2021-01-19] MEDS: **hydrALAZINE** 50 MG TAB PO SCH ×3 (05:07→18:26)
[2021-01-19 06:00] VITALS: BP 154/74
[2021-01-19] MEDS: SODIUM CHLORIDE 0.9% INJ 10 ML SYR IV SCH ×2 (06:32→18:27)
[2021-01-19 06:54] LABS: BASO # 0.1 10^3/uL (0.0-0.2); BASO % 0.5 % (0.0-1.0); EOS # 0.4 10^3/uL (0.0-0.5); EOS % 3.4 % (0.0-3.0); HEMATOCRIT 27.3 % (42.0-52.0); HEMOGLOBIN 8.3 g/dl (13.5-17.5); LYMPH # 1.6 10^3/uL (1.5-5.0); LYMPH % 14.8 % (24.0-44.0); MEAN CORPUSCULAR HEMOGLOBIN 27.4 pg (27.0-33.0); MEAN CORPUSCULAR HGB CONC 30.4 g/dl (32.0-36.5); MEAN CORPUSCULAR VOLUME 90.1 fl (80.0-96.0); MONO % 9.5 % (2.0-8.0); NEUTROPHILS # 7.7 10^3/uL (1.5-8.5); NEUTROPHILS % 71.5 % (36.0-66.0); PLATELET COUNT, AUTOMATED 387 10^3/uL (150-450); RED BLOOD COUNT 3.03 10^6/uL (4.30-6.10); WHITE BLOOD COUNT 10.7 10^3/uL (4.0-10.0)
[2021-01-19] MEDS: HumaLOG INSULIN (NovoLOG) PER UNIT SC SCH ×4 (07:30→20:40)
[2021-01-19 08:05] LABS: BLOOD UREA NITROGEN 11 MG/DL (7-18); C REACTIVE PROTEIN QUANTITATIV 5.63 MG/DL (0.00-0.30); CALCIUM LEVEL 7.6 MG/DL (8.5-10.1); CARBON DIOXIDE LEVEL 24 MEQ/L (21-32); CHLORIDE LEVEL 115 MEQ/L (98-107); GLOMERULAR FILTRATION RATE > 60.0 (>60); GLUCOSE, FASTING 89 MG/DL (70-100); MAGNESIUM LEVEL 1.7 MG/DL (1.8-2.4); SODIUM LEVEL 142 MEQ/L (136-145)
[2021-01-19] MEDS: LACTOBACILLUS ACIDOPHILUS CAP (BACID) PO SCH ×2 (08:59→20:39)
[2021-01-19] MEDS: TAMSULOSIN 0.4 MG CAP PO SCH (08:59)
[2021-01-19] MEDS: ATORVASTATIN 20 MG TAB PO SCH (08:59)
[2021-01-19] MEDS: PANTOPRAZOLE 40MG TAB (PROTONIX) PO SCH (08:59)
[2021-01-19] MEDS: LEVEMIR (INSULIN DETEMIR) 1 UNITS/0.01ML SC SCH ×2 (09:00→20:39)
[2021-01-19] MEDS ORDERED: ASPIRIN 81MG ENTERIC TABLET PO SCH (09:00)
[2021-01-19] MEDS: MOM 30ML SUSPENSION UDC PO SCH (09:00)
[2021-01-19] MEDS: SENOKOT S TAB PO SCH ×2 (09:00→20:41)
[2021-01-19] MEDS: METOPROLOL TART 25 MG TABLET PO SCH ×2 (09:00→20:40)
[2021-01-19 14:00] VITALS: BP 159/76
[2021-01-19 22:00] VITALS: BP 150/72
[2021-01-20] MEDS: PIPERACILLIN/TAZOBACTAM SOD 3.375 GM in D5W MINI-BAG PLUS 50 ML IV SCH ×2 (00:36→07:29)
[2021-01-20] MEDS: **hydrALAZINE** 50 MG TAB PO SCH ×5 (00:38→23:57)
[2021-01-20] MEDS: LEVALBUTEROL 1.25 MG/0.5 ML CONCENTRATE NEB INH PRN (04:07)
[2021-01-20 06:00] VITALS: BP_SYST 164; BP_SYST 184; BP_DIAS 89
[2021-01-20] MEDS: SODIUM CHLORIDE 0.9% INJ 10 ML SYR IV SCH ×2 (06:22→17:34)
[2021-01-20] MEDS: ceFAZolin SOD 2 GM in IV 1 EA IV SCH ×3 (06:23→22:49)
[2021-01-20 06:50] LABS: BASO # 0.1 10^3/uL (0.0-0.2); BASO % 0.7 % (0.0-1.0); EOS # 0.2 10^3/uL (0.0-0.5); EOS % 2.1 % (0.0-3.0); HEMATOCRIT 27.8 % (42.0-52.0); HEMOGLOBIN 8.4 g/dl (13.5-17.5); LYMPH # 1.9 10^3/uL (1.5-5.0); LYMPH % 17.3 % (24.0-44.0); MEAN CORPUSCULAR HEMOGLOBIN 27.3 pg (27.0-33.0); MEAN CORPUSCULAR HGB CONC 30.2 g/dl (32.0-36.5); MEAN CORPUSCULAR VOLUME 90.3 fl (80.0-96.0); MONO # 0.9 10^3/uL (0.0-0.8); MONO % 8.5 % (2.0-8.0); NEUTROPHILS # 7.6 10^3/uL (1.5-8.5); NEUTROPHILS % 70.9 % (36.0-66.0); PLATELET COUNT, AUTOMATED 405 10^3/uL (150-450); RED BLOOD COUNT 3.08 10^6/uL (4.30-6.10); WHITE BLOOD COUNT 10.7 10^3/uL (4.0-10.0)
[2021-01-20] MEDS: METOPROLOL TART 25 MG TABLET PO SCH ×2 (06:50→22:48)
[2021-01-20 07:08] LABS: BLOOD UREA NITROGEN 10 MG/DL (7-18); C REACTIVE PROTEIN QUANTITATIV 5.04 MG/DL (0.00-0.30); CALCIUM LEVEL 7.9 MG/DL (8.5-10.1); CARBON DIOXIDE LEVEL 24 MEQ/L (21-32); CHLORIDE LEVEL 114 MEQ/L (98-107); CREATININE FOR GFR 1.22 MG/DL (0.70-1.30); GLOMERULAR FILTRATION RATE > 60.0 (>60); GLUCOSE, FASTING 67 MG/DL (70-100); MAGNESIUM LEVEL 1.8 MG/DL (1.8-2.4); POTASSIUM SERUM 3.6 MEQ/L (3.5-5.1); SODIUM LEVEL 143 MEQ/L (136-145)
[2021-01-20] MEDS: HumaLOG INSULIN (NovoLOG) PER UNIT SC SCH ×4 (07:30→22:40)
[2021-01-20] MEDS: LEVEMIR (INSULIN DETEMIR) 1 UNITS/0.01ML SC SCH ×2 (07:50→22:40)
[2021-01-20] MEDS: SENOKOT S TAB PO SCH ×2 (07:53→22:48)
[2021-01-20] MEDS: MOM 30ML SUSPENSION UDC PO SCH (07:53)
[2021-01-20] MEDS: LACTOBACILLUS ACIDOPHILUS CAP (BACID) PO SCH ×2 (07:57→22:47)
[2021-01-20] MEDS: ASPIRIN 81MG ENTERIC TABLET PO SCH (07:57)
[2021-01-20] MEDS: ATORVASTATIN 20 MG TAB PO SCH (07:57)
[2021-01-20] MEDS: PANTOPRAZOLE 40MG TAB (PROTONIX) PO SCH (07:57)
[2021-01-20] MEDS: TAMSULOSIN 0.4 MG CAP PO SCH (07:58)
[2021-01-20] MEDS: SODIUM CHLORIDE 0.9% INJ 10 ML SYR IV PRN ×2 (07:59→23:57)
[2021-01-20 10:00] VITALS: BP 153/79
[2021-01-20] MEDS ORDERED: DALV1SOL IV (10:19)
--- NOTE | 2021-01-20 12:52 | IPNPDOC ---
Text Note Date of Service The patient was seen on 01/19/21. NOTE Subjective: Patient seen and examined at bedside. No acute overnight events reported. Patient voices no new medical complaints this morning. Still complains of cough at night. Objective: Vitals (See below) General: NAD, sitting comfortably at edge of bed HEENT: NC/AT, EOMI, poor dentition Lungs: CTA B/L Heart: +S1S2, RRR Extremities: There is 1+ pitting edema of his feet bilaterally A/P: 50M with a PMHx of CAD s/p CABG, IDDM2, DLP, resented to the emergency room with confusion. Patient was brought to the hospital via EMS. Upon arrival to emergency room, patient was found to be in DKA and was admitted to the ICU for further management. Patient subsequently was found to have MSSA bacteremia, suspected to be from a prostate abscess. This was compensated with septic emboli to the lungs and to his right acromioclavicular joint and right proximal arm abscess. 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 Patient had orthopedic surgery. See his right shoulder for incision and drainage. #s/p Sepsis - 2/2 MSSA bacteremia with septic emboli to lungs, prostate abscess, R proximal arm abscess, R acromioclavicular joint abscess - No fevers / remains hemodynamically stable - WBC and inflammatory markers have been trending down - Blood cultures 12/28: MSSA; Negative starting on 12/30; Repeat blood cultures 01/11: Negative - CONCEPCION no vegetations. EF of 65%, lipomatous hypertrophy of the atrial septum no RWMA - c/w Cefazolin; PICC line in place - ID on consultation; appreciate their input - c/w PT and OT - may ultimately be cleared by physical therapy #Reported cough - possibly pneumonia - Denies shortness of breath or productive cough - On 01/11 patient had reported a productive cough - CT Chest 01/12: 1. Chronic elevation to the right hemidiaphragm and to the significant opacity on recent x-rays. However, there is new right lower lobe consolidation with air bronchograms and small to moderate right pleural effusion which appear increased from 12/30/2020. 2. Scattered bilateral rounded opacities are again noted which have relatively rapidly increased as compared with 12/23/2020 and are most suggestive of septic emboli/multifocal pneumonia. Differential diagnosis less likely includes metastatic disease. - completed zosyn, continue with cefazolin #s/p Right acromioclavicular joint abscess and possible OM of the distal clavicle/ Right prox arm abscess. - Has had had Exploration in OR, I&D on 01/05/21 - R should culture: Cutibacterium Acnes (Few) - MRI of bilateral shoulders complete; reviewed with Orthopedic surgery - s/p Evaluation of L shoulder; no fluid could be aspirated on 01/14 - c/w Percocet for pain control - c/w Antibiotics as sated above - Dr. Armstrong on consultation; appreciate their input; plan for removal of sutures tomorrow #Prostate abscess / s/p Urinary retention - s/p cystoscopy, right retrograde pyelogram, right ureteral stent placement, TURP prostate abscess on 12/31/20 - [place] catheter re-inserted on 01/13 for retention and will remain in place until evaluated by urology - Urology on consultation; will discuss with Urology about stent removal if appropriate #Bilateral hydronephrosis and hydroureter - 2/2 prostate abscess and trigonal inflammation - Had cysto with left ureteral stent placement on 12/25/20. Cysto showed severe inflammation of the trigone causing occlusion of the left ureteral orifice. - Again had cystoscopy, right retrograde pyelogram, right ureteral stent placement, TURP prostate abscess on 12/31/20 - Patient has left ureteral double J stent placed on 12/25/20 and right stent placement on 12/31/20 - Urology on consultation #Normocytic anemia - likely 2/2 anemia of chronic disease - in the setting of hematuria - discussed with urology, further eval pending - Iron panel, Vitamin b12, folate, Haptoglobin, LDH - noted - s/p 2 units PRBC - Hg improved; appears stable #s/p Acute renal failure - Renal function has normalized - s/p IV fluids yesterday #IDDM2 - s/p DKA and Insulin drip - c/w Levemir and ISS #Stage II ulcer on the left lateral supramalleolar region - c/w Wound care #s/p Hypernatremia #CAD s/p CABG (2014) - c/w Atorvastatin, Clopidogrel, Metoprolol #Elevated troponin - likely 2/2 demand ischemia - Denied any chest pain - EKG reviewed #DLP - c/w Atorvastatin #Hypertension - BP better controlled today - c/w Amlodipine, Metoprolol, Hydralazine, Lisinopril #GERD - c/w Protonix #DVT prophylaxis - c/w TEDs / Sequentials VS,Fishbone, I+O VS, Fishbone, I+O Laboratory Tests 01/20/21 06:19 Vital Signs Date Time Temp Pulse Resp B/P (MAP) Pulse Ox O2 Delivery O2 Flow Rate FiO2 01/20/21 10:00 153/79 (103) 01/20/21 06:50 90 01/20/21 06:00 98.4 18 92 Room Air I&O- Last 24 Hours up to 6 AM 01/20/21 06:00 Intake Total 840 ml Output Total 1700 ml Balance -860 ml JUVENTINO DAVE MD January 20, 2021 12:52
--- NOTE | 2021-01-20 12:57 | IPNPDOC ---
Text Note Date of Service The patient was seen on 01/20/21. NOTE Subjective: Patient seen and examined at bedside. No acute overnight events reported. Patient voices no new medical complaints this morning. Still complaining of worsening cough at night. Examined LLE wound with nurse. Objective: Vitals (See below) General: NAD, lying comfortably in bed HEENT: NC/AT, EOMI, poor dentition Lungs: CTA B/L Heart: +S1S2, RRR Extremities: LLE wound, healing well, no drainage A/P: 50M with a PMHx of CAD s/p CABG, IDDM2, DLP, resented to the emergency room with confusion. Patient was brought to the hospital via EMS. Upon arrival to emergency room, patient was found to be in DKA and was admitted to the ICU for further management. Patient subsequently was found to have MSSA bacteremia, suspected to be from a prostate abscess. He went on to develop septic emboli to the lungs and to his right acromioclavicular joint and right proximal arm abscess. 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 Patient had orthopedic surgery. See his right shoulder for incision and drainage. #s/p Sepsis - 2/2 MSSA bacteremia with septic emboli to lungs, prostate abscess, R proximal arm abscess, R acromioclavicular joint abscess - No fevers / remains hemodynamically stable - WBC and inflammatory markers have been trending down - Blood cultures 12/28: MSSA; Negative starting on 12/30; Repeat blood cultures 01/11: Negative - CONCEPCION no vegetations. EF of 65%, lipomatous hypertrophy of the atrial septum no RWMA - c/w Cefazolin; PICC line in place - ID on consultation; appreciate their input - discharge with delvance 1 dose on day after discharge - cefazolin while inpatient #Reported cough - possibly pneumonia - Denies shortness of breath or productive cough - On 01/11 patient had reported a productive cough - CT Chest 01/12: 1. Chronic elevation to the right hemidiaphragm and to the significant opacity on recent x-rays. However, there is new right lower lobe consolidation with air bronchograms and small to moderate right pleural effusion which appear increased from 12/30/2020. 2. Scattered bilateral rounded opacities are again noted which have relatively rapidly increased as compared with 12/23/2020 and are most suggestive of septic emboli/multifocal pneumonia. Differential diagnosis less likely includes metastatic disease. - completed zosyn, continue with cefazolin - concern for pleural effusion - repeat chest x-ray - thoracentesis #s/p Right acromioclavicular joint abscess and possible OM of the distal clavicle/ Right prox arm abscess. - Has had had Exploration in OR, I&D on 01/05/21 - R should culture: Cutibacterium Acnes (Few) - MRI of bilateral shoulders complete; reviewed with Orthopedic surgery - s/p Evaluation of L shoulder; no fluid could be aspirated on 01/14 - c/w Percocet for pain control - c/w Antibiotics as sated above - Dr. Armstrong on consultation; appreciate their input; stated ok to remove sutures #Prostate abscess / s/p Urinary retention - s/p cystoscopy, right retrograde pyelogram, right ureteral stent placement, TURP prostate abscess on 12/31/20 - Johns catheter re-inserted on 01/13 for retention and will remain in place until evaluated by urology - Urology on consultation - dc home with johns - can use leg bag; o/p follow up #Bilateral hydronephrosis and hydroureter - 2/2 prostate abscess and trigonal inflammation - Had cysto with left ureteral stent placement on 12/25/20. Cysto showed severe i nflammation of the trigone causing occlusion of the left ureteral orifice. - Again had cystoscopy, right retrograde pyelogram, right ureteral stent placement, TURP prostate abscess on 12/31/20 - Patient has left ureteral double J stent placed on 12/25/20 and right stent placement on 12/31/20 - Urology on consultation #Normocytic anemia - likely 2/2 anemia of chronic disease - in the setting of hematuria - discussed with urology, further eval pending - Iron panel, Vitamin b12, folate, Haptoglobin, LDH - noted - s/p 2 units PRBC - Hg improved; appears stable #s/p Acute renal failure - Renal function has normalized #IDDM2 - s/p DKA and Insulin drip - c/w Levemir and ISS #Stage II ulcer on the left lateral supramalleolar region - c/w Wound care #s/p Hypernatremia #CAD s/p CABG (2014) - c/w Atorvastatin, Clopidogrel, Metoprolol #Elevated troponin - likely 2/2 demand ischemia - Denied any chest pain - EKG reviewed #DLP - c/w Atorvastatin #Hypertension - BP better controlled today - c/w Amlodipine, Metoprolol, Hydralazine, Lisinopril #GERD - c/w Protonix #DVT prophylaxis - c/w TEDs / Sequentials Dispo: possible thoracentesis, pending approval for sheila, possible d/c in 24 to 48 hours VS,Fishbone, I+O VS, Fishbone, I+O Laboratory Tests 01/20/21 06:19 Vital Signs Date Time Temp Pulse Resp B/P (MAP) Pulse Ox O2 Delivery O2 Flow Rate FiO2 01/20/21 10:00 153/79 (103) 01/20/21 06:50 90 01/20/21 06:00 98.4 18 92 Room Air I&O- Last 24 Hours up to 6 AM 01/20/21 06:00 Intake Total 840 ml Output Total 1700 ml Balance -860 ml JUVENTINO DAVE MD January 20, 2021 12:57
[2021-01-20 13:15] LABS: LDH LACTATE DEHYDROGENASE 152 U/L (87-241)
[2021-01-20 14:00] VITALS: BP 159/80
--- NOTE | 2021-01-20 14:31 | REP ---
INDICATION: orthopnea, cough, interim eval, effusion? COMPARISON: 01/11/2021 TECHNIQUE: PA and lateral. FINDINGS: Diffuse bilateral airspace disease and large right pleural effusion are again noted. Underlying chronic interstitial changes are suggested as well. The cardiac silhouette is normal. Evidence for prior sternotomy and CABG. Skeletal structures are intact. Left PICC line with tip in the SVC. IMPRESSION: Diffuse bilateral infiltrates and large right pleural effusion similar to prior examination. <Electronically signed by Ramon North > 01/20/21 [id number]
[2021-01-20 22:00] VITALS: BP 154/83
[2021-01-20] MEDS ORDERED: LEVEMIR (INSULIN DETEMIR) 1 UNITS/0.01ML SC ONE (22:40)
[2021-01-21] VITALS (7 sets, daily range): BP systolic 135–145; BP diastolic 63–83
[2021-01-21] MEDS: SODIUM CHLORIDE 0.9% INJ 10 ML SYR IV SCH ×2 (06:37→19:21)
[2021-01-21] MEDS: **hydrALAZINE** 50 MG TAB PO SCH ×3 (06:38→19:21)
[2021-01-21] MEDS: ceFAZolin SOD 2 GM in IV 1 EA IV SCH ×3 (06:38→22:03)
[2021-01-21 07:02] LABS: BASO # 0.1 10^3/uL (0.0-0.2); BASO % 0.8 % (0.0-1.0); EOS # 0.2 10^3/uL (0.0-0.5); EOS % 2.3 % (0.0-3.0); HEMATOCRIT 28.8 % (42.0-52.0); HEMOGLOBIN 8.7 g/dl (13.5-17.5); LYMPH # 1.7 10^3/uL (1.5-5.0); LYMPH % 17.8 % (24.0-44.0); MEAN CORPUSCULAR HEMOGLOBIN 27.2 pg (27.0-33.0); MEAN CORPUSCULAR HGB CONC 30.2 g/dl (32.0-36.5); MONO # 0.9 10^3/uL (0.0-0.8); MONO % 9.3 % (2.0-8.0); NEUTROPHILS # 6.4 10^3/uL (1.5-8.5); NEUTROPHILS % 69.5 % (36.0-66.0); PLATELET COUNT, AUTOMATED 408 10^3/uL (150-450); WHITE BLOOD COUNT 9.3 10^3/uL (4.0-10.0)
[2021-01-21] MEDS: HumaLOG INSULIN (NovoLOG) PER UNIT SC SCH ×4 (07:30→20:20)
[2021-01-21 07:32] LABS: BLOOD UREA NITROGEN 9 MG/DL (7-18); C REACTIVE PROTEIN QUANTITATIV 4.84 MG/DL (0.00-0.30); CALCIUM LEVEL 8.6 MG/DL (8.5-10.1); CARBON DIOXIDE LEVEL 26 MEQ/L (21-32); CHLORIDE LEVEL 113 MEQ/L (98-107); CREATININE FOR GFR 1.12 MG/DL (0.70-1.30); GLOMERULAR FILTRATION RATE > 60.0 (>60); GLUCOSE, FASTING 91 MG/DL (70-100); MAGNESIUM LEVEL 1.7 MG/DL (1.8-2.4); SODIUM LEVEL 143 MEQ/L (136-145)
[2021-01-21] MEDS: LEVEMIR (INSULIN DETEMIR) 1 UNITS/0.01ML SC SCH ×2 (07:36→21:00)
[2021-01-21] MEDS: MOM 30ML SUSPENSION UDC PO SCH (07:40)
[2021-01-21] MEDS: SENOKOT S TAB PO SCH ×2 (07:41→22:03)
[2021-01-21] MEDS: LACTOBACILLUS ACIDOPHILUS CAP (BACID) PO SCH ×2 (08:33→22:03)
[2021-01-21] MEDS: ATORVASTATIN 20 MG TAB PO SCH (08:33)
[2021-01-21] MEDS: TAMSULOSIN 0.4 MG CAP PO SCH (08:33)
[2021-01-21] MEDS: METOPROLOL TART 25 MG TABLET PO SCH ×2 (08:33→22:05)
[2021-01-21] MEDS: ASPIRIN 81MG ENTERIC TABLET PO SCH (08:34)
[2021-01-21] MEDS: PANTOPRAZOLE 40MG TAB (PROTONIX) PO SCH (08:34)
[2021-01-21] MEDS: SODIUM CHLORIDE 0.9% INJ 10 ML SYR IV PRN (08:36)
--- NOTE | 2021-01-21 10:26 | IPNPDOC ---
Text Note Date of Service The patient was seen on 01/21/21. NOTE Subjective: Patient seen and examined at bedside. Sutures from right shoulder were removed yesterday, with reported very large amount of pus extracted. No acute overnight events reported. No new medical complaints this morning. Objective: Vitals (See below) General: NAD, lying comfortably in bed HEENT: NC/AT, EOMI, poor dentition Lungs: CTA B/L Heart: +S1S2, RRR Extremities: LLE wound, healing well, no drainage; right shoulder wounds, healing well A/P: 50M with a PMHx of CAD s/p CABG, IDDM2, DLP, resented to the emergency room with confusion. Patient was brought to the hospital via EMS. Upon arrival to emergency room, patient was found to be in DKA and was admitted to the ICU for further management. Patient subsequently was found to have MSSA bacteremia, suspected to be from a prostate abscess. He went on to develop septic emboli to the lungs and to his right acromioclavicular joint and right proximal arm abscess. 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 Patient had orthopedic surgery. See his right shoulder for incision and drainage. #s/p Sepsis - 2/2 MSSA bacteremia with septic emboli to lungs, prostate abscess, R proximal arm abscess, R acromioclavicular joint abscess - No fevers / remains hemodynamically stable - WBC and inflammatory markers have been trending down - Blood cultures 12/28: MSSA; Negative starting on 12/30; Repeat blood cultures 01/11: Negative - CONCEPCION no vegetations. EF of 65%, lipomatous hypertrophy of the atrial septum no RWMA - c/w Cefazolin; PICC line in place - ID on consultation; appreciate their input - discharge with delvance 1 dose on day after discharge - cefazolin while inpatient #right shoulder abscess - sutures removed yesterday with large amount of pus - ortho to OR today for washout - continue abx and f/u as per ortho #Reported cough - possibly pneumonia - Denies shortness of breath or productive cough - On 01/11 patient had reported a productive cough - CT Chest 01/12: 1. Chronic elevation to the right hemidiaphragm and to the significant opacity on recent x-rays. However, there is new right lower lobe consolidation with air bronchograms and small to moderate right pleural effusion which appear increased from 12/30/2020. 2. Scattered bilateral rounded opacities are again noted which have relatively rapidly increased as compared with 12/23/2020 and are most suggestive of septic emboli/multifocal pneumonia. Differential diagnosis less likely includes metastatic disease. - completed zosyn, continue with cefazolin #pleural effusion - large right pleural effusion - plan for thoracentesis after 5 day plavix washout as per IR #s/p Right acromioclavicular joint abscess and possible OM of the distal clavicle/ Right prox arm abscess. - Has had had Exploration in OR, I&D on 01/05/21 - R should culture: Cutibacterium Acnes (Few) - MRI of bilateral shoulders complete; reviewed with Orthopedic surgery - s/p Evaluation of L shoulder; no fluid could be aspirated on 01/14 - c/w Percocet for pain control - c/w Antibiotics as sated above - Dr. Armstrong on consultation #Prostate abscess / s/p Urinary retention - s/p cystoscopy, right retrograde pyelogram, right ureteral stent placement, TURP prostate abscess on 12/31/20 - Johns catheter re-inserted on 01/13 for retention and will remain in place until evaluated by urology - Urology on consultation - dc home with johns - can use leg bag; o/p follow up #Bilateral hydronephrosis and hydroureter - 2/2 prostate abscess and trigonal inflammation - Had cysto with left ureteral stent placement on 12/25/20. Cysto showed severe inflammation of the trigone causing occlusion of the left ureteral orifice. - Again had cystoscopy, right retrograde pyelogram, right ureteral stent placement, TURP prostate abscess on 12/31/20 - Patient has left ureteral double J stent placed on 12/25/20 and right stent placement on 12/31/20 - Urology on consultation #Normocytic anemia - likely 2/2 anemia of chronic disease - in the setting of hematuria - discussed with urology, further eval pending - Iron panel, Vitamin b12, folate, Haptoglobin, LDH - noted - s/p 2 units PRBC - Hg improved; appears stable #s/p Acute renal failure - Renal function has normalized #IDDM2 - s/p DKA and Insulin drip - c/w Levemir and ISS #Stage II ulcer on the left lateral supramalleolar region - c/w Wound care #s/p Hypernatremia #CAD s/p CABG (2014) - c/w Atorvastatin, Clopidogrel, Metoprolol #Elevated troponin - likely 2/2 demand ischemia - Denied any chest pain - EKG reviewed #DLP - c/w Atorvastatin #Hypertension - BP better controlled today - c/w Amlodipine, Metoprolol, Hydralazine, Lisinopril #GERD - c/w Protonix #DVT prophylaxis - c/w TEDs / Sequentials Dispo: to OR today with ortho, right shoulder washout; thoracentesis planned for Sunday; continue IV antibiotics VS,Fishbone, I+O VS, Fishbone, I+O Laboratory Tests 01/21/21 06:40 Vital Signs Date Time Temp Pulse Resp B/P (MAP) Pulse Ox O2 Delivery O2 Flow Rate FiO2 01/21/21 08:33 166/79 01/21/21 08:33 85 01/21/21 06:00 98.0 18 91 Room Air I&O- Last 24 Hours up to 6 AM 01/21/21 06:00 Intake Total 1690 ml Output Total 2000 ml Balance -310 ml JUVENTINO DAVE MD January 21, 2021 10:26
[2021-01-21] MEDS ORDERED: LIDOCAINE 1% MDV 20ML VIAL As Ordered ONE (14:02)
[2021-01-21] MEDS ORDERED: EPINEPHrine 1MG/ML INJ 30ML MD-VIAL As Ordered ONE (14:02)
[2021-01-21] MEDS ORDERED: ONDANSETRON 4MG/2ML VIAL As Ordered ONE ×2 (14:07→18:10)
[2021-01-21] MEDS ORDERED: MIDAZOLAM INJ 2MG/2ML VIAL (J2250 PER 1MG) As Ordered ONE (14:07)
[2021-01-21] MEDS ORDERED: dexameTHASONE 4 MG/ML 1ML VIAL (J1100 PER 1MG) As Ordered ONE (14:07)
[2021-01-21] MEDS ORDERED: LIDOCAINE 2% 100MG/5ML SDV (FOR ANES.) As Ordered ONE (14:07)
[2021-01-21] MEDS ORDERED: ROCURONIUM BROMIDE 50 MG/5 ML VIAL As Ordered ONE (14:07)
[2021-01-21] MEDS ORDERED: propofoL 200 MG/20 ML VIAL As Ordered ONE ×2 (14:07→17:39)
[2021-01-21] MEDS ORDERED: fentaNYL 100 MCG/2 ML INJECTION (J3010) As Ordered ONE ×2 (14:08→17:04)
[2021-01-21] MEDS ORDERED: LACRILUBE (AKWA TEARS) OPHTH OINT 3.5 GM As Ordered ONE (14:13)
[2021-01-21] MEDS ORDERED: ceFAZolin 2 GM/D5W 50 ML IV BAG (J0690 PER 500MG) As Ordered ONE (14:37)
[2021-01-21] MEDS ORDERED: SUGAMMADEX SODIUM 500 MG/5 ML VIAL (BRIDION) As Ordered ONE (17:22)
[2021-01-21] MEDS ORDERED: ACETAMINOPHEN 1000MG 100ML IV BTL (OFIRMEV) (J0131 PER 10MG) As Ordered ONE (17:22)
[2021-01-21] MEDS ORDERED: oxyCODONE 5MG TAB PO PRN (18:15)
[2021-01-21] MEDS ORDERED: LR 1,000 ML IV SCH (18:15)
[2021-01-21] MEDS ORDERED: fentaNYL 100 MCG/2 ML INJECTION (J3010) IV PRN (18:15)
[2021-01-21] MEDS ORDERED: ONDANSETRON 4MG/2ML VIAL IV PRN (18:15)
[2021-01-22] MEDS: **hydrALAZINE** 50 MG TAB PO SCH ×4 (00:54→17:58)
[2021-01-22] MEDS: SODIUM CHLORIDE 0.9% INJ 10 ML SYR IV PRN (00:55)
[2021-01-22 02:00] VITALS: BP 168/90
[2021-01-22 06:00] VITALS: BP 180/80
[2021-01-22] MEDS: SODIUM CHLORIDE 0.9% INJ 10 ML SYR IV SCH ×2 (06:00→17:58)
[2021-01-22] MEDS: ceFAZolin SOD 2 GM in IV 1 EA IV SCH ×3 (06:00→21:33)
[2021-01-22 06:24] LABS: BASO # 0.1 10^3/uL (0.0-0.2); EOS # 0.1 10^3/uL (0.0-0.5); EOS % 0.8 % (0.0-3.0); HEMATOCRIT 29.5 % (42.0-52.0); HEMOGLOBIN 8.7 g/dl (13.5-17.5); LYMPH # 1.2 10^3/uL (1.5-5.0); MEAN CORPUSCULAR HEMOGLOBIN 26.8 pg (27.0-33.0); MEAN CORPUSCULAR HGB CONC 29.5 g/dl (32.0-36.5); MEAN CORPUSCULAR VOLUME 90.8 fl (80.0-96.0); MONO # 0.9 10^3/uL (0.0-0.8); MONO % 8.5 % (2.0-8.0); NEUTROPHILS % 77.3 % (36.0-66.0); PLATELET COUNT, AUTOMATED 392 10^3/uL (150-450); RED BLOOD COUNT 3.25 10^6/uL (4.30-6.10); WHITE BLOOD COUNT 10.3 10^3/uL (4.0-10.0)
[2021-01-22 06:37] LABS: C REACTIVE PROTEIN QUANTITATIV 5.79 MG/DL (0.00-0.30); CALCIUM LEVEL 7.8 MG/DL (8.5-10.1); CREATININE FOR GFR 1.55 MG/DL (0.70-1.30); GLOMERULAR FILTRATION RATE 51.2 (>60); MAGNESIUM LEVEL 1.8 MG/DL (1.8-2.4); POTASSIUM SERUM 4.3 MEQ/L (3.5-5.1)
[2021-01-22 07:17] VITALS: BP 176/80
[2021-01-22] MEDS: HumaLOG INSULIN (NovoLOG) PER UNIT SC SCH ×4 (07:30→21:00)
[2021-01-22] MEDS: PANTOPRAZOLE 40MG TAB (PROTONIX) PO SCH (08:45)
[2021-01-22] MEDS: ATORVASTATIN 20 MG TAB PO SCH (08:45)
[2021-01-22] MEDS: TAMSULOSIN 0.4 MG CAP PO SCH (08:45)
[2021-01-22] MEDS: METOPROLOL TART 25 MG TABLET PO SCH (08:45)
[2021-01-22] MEDS: LACTOBACILLUS ACIDOPHILUS CAP (BACID) PO SCH ×2 (08:46→21:33)
[2021-01-22] MEDS: ASPIRIN 81MG ENTERIC TABLET PO SCH (08:46)
[2021-01-22] MEDS: PERCOCET 5MG/325MG TAB PO PRN (08:50)
[2021-01-22] MEDS: LEVEMIR (INSULIN DETEMIR) 1 UNITS/0.01ML SC SCH ×2 (08:51→21:33)
[2021-01-22] MEDS: MOM 30ML SUSPENSION UDC PO SCH (09:00)
[2021-01-22] MEDS: SENOKOT S TAB PO SCH ×2 (09:00→21:32)
--- NOTE | 2021-01-22 10:46 | IPNPDOC ---
Text Note Date of Service The patient was seen on 01/22/21. NOTE Subjective: Patient seen and examined at bedside. Underwent right shoulder irrigation and washing, and left should arthroscopy yesterday. Does note shortness of breath, resolved with supplemental oxygen. No acute overnight events reported. Objective: Vitals (See below) General: NAD, lying comfortably in bed HEENT: NC/AT, EOMI, poor dentition, nasal cannula in place Lungs: CTA B/L Heart: +S1S2, RRR Extremities: LLE wound, healing well, no drainage; B/L shoulder dressings in place A/P: 50M with a PMHx of CAD s/p CABG, IDDM2, DLP, resented to the emergency room with confusion. Patient was brought to the hospital via EMS. Upon arrival to emergency room, patient was found to be in DKA and was admitted to the ICU for further management. Patient subsequently was found to have MSSA bacteremia, suspected to be from a prostate abscess. He went on to develop septic emboli to the lungs and to his right acromioclavicular joint and right proximal arm abscess. 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 Hospital stay further complicated with right pleural effusion. #s/p Sepsis - 2/2 MSSA bacteremia with septic emboli to lungs, prostate abscess, R proximal arm abscess, R acromioclavicular joint abscess - repeat washing by ortho of right shoulder - No fevers / remains hemodynamically stable - WBC and inflammatory markers have been trending down - Blood cultures 12/28: MSSA; Negative starting on 12/30; Repeat blood cultures 01/11: Negative - CONCEPCION no vegetations. EF of 65%, lipomatous hypertrophy of the atrial septum no RWMA - c/w Cefazolin; PICC line in place - ID on consultation; appreciate their input - discharge with delvance 1 dose on day after discharge - cefazolin while inpatient #right shoulder abscess - sutures removed with large amount of pus - repeat washing by ortho of right shoulder - continue abx and f/u as per ortho and ID #PNA? - CT Chest 01/12: 1. Chronic elevation to the right hemidiaphragm and to the significant opacity on recent x-rays. However, there is new right lower lobe consolidation with air bronchograms and small to moderate right pleural effusion which appear increased from 12/30/2020. 2. Scattered bilateral rounded opacities are again noted which have relatively rapidly increased as compared with 12/23/2020 and are most suggestive of septic emboli/multifocal pneumonia. Differential diagnosis less likely includes metastatic disease. - completed zosyn, continue with cefazolin #pleural effusion - large right pleural effusion - plan for thoracentesis after 5 day plavix washout as per IR #left shoulder fluid collection? - s/p Evaluation of L shoulder; no fluid could be aspirated on 01/14; repeat aspiration 01/21/21 - c/w Percocet for pain control - c/w Antibiotics as above - Dr. Amrstrong on consultation #Prostate abscess / s/p Urinary retention - s/p cystoscopy, right retrograde pyelogram, right ureteral stent placement, TURP prostate abscess on 12/31/20 - Johns catheter re-inserted on 01/13 for retention and will remain in place - Urology on consultation - dc home with johns - can use leg bag; o/p follow up #Bilateral hydronephrosis and hydroureter - 2/2 prostate abscess and trigonal inflammation - Had cysto with left ureteral stent placement on 12/25/20. Cysto showed severe inflammation of the trigone causing occlusion of the left ureteral orifice. - Again had cystoscopy, right retrograde pyelogram, right ureteral stent placement, TURP prostate abscess on 12/31/20 - Patient has left ureteral double J stent placed on 12/25/20 and right stent placement on 12/31/20 - Urology on consultation #Normocytic anemia - likely 2/2 anemia of chronic disease - in the setting of hematuria - discussed with urology, further eval pending - Iron panel, Vitamin b12, folate, Haptoglobin, LDH - noted - s/p 2 units PRBC - Hg improved; appears stable #s/p Acute renal failure - Renal function has normalized #IDDM2 - s/p DKA and Insulin drip - c/w Levemir and ISS #Stage II ulcer on the left lateral supramalleolar region - c/w Wound care #s/p Hypernatremia #CAD s/p CABG (2014) - c/w Atorvastatin, Clopidogrel, Metoprolol #Elevated troponin - likely 2/2 demand ischemia - Denied any chest pain - EKG reviewed #DLP - c/w Atorvastatin #Hypertension - BP better controlled today - c/w Amlodipine, Metoprolol, Hydralazine, Lisinopril #GERD - c/w Protonix #DVT prophylaxis - c/w TEDs / Sequentials Dispo: thoracentesis planned for Sunday; continue IV antibiotics; ortho, ID, urology follow up VS,Fishbone, I+O VS, Fishbone, I+O Laboratory Tests 01/22/21 05:51 Vital Signs Date Time Temp Pulse Resp B/P (MAP) Pulse Ox O2 Delivery O2 Flow Rate FiO2 01/22/21 08:50 17 Nasal Cannula 2.0 01/22/21 08:45 82 01/22/21 08:44 176/80 01/22/21 06:00 98.1 94 I&O- Last 24 Hours up to 6 AM 01/22/21 06:00 Intake Total 1150 ml Output Total 1480 ml Balance -330 ml JUVENTINO DAVE MD January 22, 2021 10:46
--- NOTE | 2021-01-22 11:26 | REP ---
INDICATION: interim eval COMPARISON: 01/20/2021. TECHNIQUE: AP and lateral. FINDINGS: Right-sided infiltrate inferiorly and right pleural effusion are stable. Interstitial densities in the lower left lung are stable. The heart is enlarged. The mediastinal silhouette is unchanged. Multiple sternal wires are present. There is a left arm PICC line with the tip in the superior vena cava. IMPRESSION: Stable lung findings as above. <Electronically signed by Vincenzo Moyer > 01/22/21 1129
--- NOTE | 2021-01-22 12:01 | IPNPDOC ---
Text Note Date of Service The patient was seen on 01/22/21. NOTE S: Doing well this AM, no issues to speak of. Shoulders in pain as expected. No other complaints O: High BP, otherwise VSSWNL Bilateral Shoulder: dressings c/d/i, no strikethrough; ROM deferred, NVID Labs: WBC 10.3 CRP 5.79 A: 50 yo M s/p bilateral shoulder irrigation and debridement (right open AC joint, arthroscopic subacromial space, open posterolateral wound; left s ubacromial space arthroscopic) on 01/21/2021 with previous right shoulder irrigation and debridement (open AC joint, arthroscopic subacromial space, open posterolateral wound) on , doing well post-operatively - No purulence found on washout, do not expect need for further washouts but will maintain high level of suspicion - Follow cultures; antibiotics per ID/Hospitalist - Pain control, DVT chemoprophylaxis, diet - per primary team - Gentle shoulder ROM with PT okay as soon as possible - Bilateral shoulder sling for comfort, take off daily for wrist and elbow motion - Bilateral shoulder XR - portable - Right side dressing will be partially taken down on Sunday to remove the drains; sutures out at 2 weeks - Continue to follow infection labs Questions please call [phone] Kaden VSSanthosh I+O Santhosh SORIANO I+O Laboratory Tests 01/22/21 05:51 Vital Signs Date Time Temp Pulse Resp B/P (MAP) Pulse Ox O2 Delivery O2 Flow Rate FiO2 01/22/21 09:20 17 01/22/21 08:50 Nasal Cannula 2.0 01/22/21 08:45 82 01/22/21 08:44 176/80 01/22/21 06:00 98.1 94 I&O- Last 24 Hours up to 6 AM 01/22/21 06:00 Intake Total 1150 ml Output Total 1480 ml Balance -330 ml DRE DENNIS MD January 22, 2021 12:01
[2021-01-22 14:00] VITALS: BP 137/80
--- NOTE | 2021-01-22 14:12 | REP ---
INDICATION: post-op; portable XR please COMPARISON: 01/01/2021. TECHNIQUE: Three views bilateral shoulders. FINDINGS: There has been resection of the distal end of the right clavicle. The osseous structures of the right shoulder are otherwise unremarkable. On the left there is no acute fracture or dislocation. Two punctate calcific densities are seen along the superolateral aspect of the left humeral head. IMPRESSION: Resection of distal end right clavicle. <Electronically signed by Vincenzo Moyer > 01/22/21 [id number]
[2021-01-22] MEDS ORDERED: FUROSEMIDE 40MG/4ML VIAL (J1940) IV ONE (15:00)
--- NOTE | 2021-01-22 15:05 | RO ---
OPERATIVE NOTE DATE OF OPERATION: 01/21/2021 PREOPERATIVE DIAGNOSIS: Right shoulder septic acromioclavicular joint, posterior proximal arm abscess and infected subacromial space and left septic subacromial bursitis. POSTOPERATIVE DIAGNOSIS: Right shoulder septic acromioclavicular joint, posterior proximal arm abscess and infected subacromial space and left septic subacromial bursitis. PROCEDURES: 1. Right shoulder arthroscopic irrigation and debridement of the subacromial space. 2. Right shoulder irrigation and debridement of posterolateral proximal arm abscess. 3. Right AC joint irrigation and debridement with partial distal clavicle resection to send for biopsy. 4. Left subacromial space irrigation and debridement, arthroscopic. 5. Bilateral shoulder examination under anesthesia and manipulation under anesthesia. SURGEON: Darrin Alfonso MD CREDIT DIRECTOR: None ANESTHESIA: General endotracheal tube. FINDINGS: The patient had on the right side no obvious pus in any of his previous wounds. He did have a hematoma collection in the posterolateral proximal arm incision and his was evacuated and then irrigated and debrided. Again, the subacromial space had inflamed tissue with no gross purulence. The AC joint had some fat necrosis but no purulence. The left shoulder subacromial space was evaluated also with inflamed tissue but no obvious purulence. For examination under anesthesia with gentle manipulation, bilateral shoulders for the right, we were able to get to 170 degrees of forward flexion and 160 degrees of abduction, full internal and external rotation. The left side was about 160 of forward flexion, 160 of abduction and full external and internal rotation. There was not much release of tissue during this examination under anesthesia. INDICATIONS: The patient is a 50-year-old male with bilateral shoulder pain. He was initially admitted on December 23, 2020. He presented with a complicated past medical history including coronary artery disease, previous CABG, diabetes mellitus, on insulin Lantus 20 units a day, hyperlipidemia among other medical issues. He was admitted for diabetic ketoacidosis as well as many other problems. He was then taken back to the OR by Dr. Porfirio Armstrong on 01/05/2021 for right shoulder arthroscopic subacromial space irrigation and debridement, open irrigation and debridement of right acromioclavicular joint, and open irrigation and debridement of right proximal posterior arm. Since, he was doing well after that surgery and since then had started developing left arm and shoulder pain as well with limited motion. MRI of that side demonstrated a large fluid collection in the subacromial space concerning for septic subacromial bursitis. An attempted aspiration was done by Dr. Armstrong which demonstrated no fluid in that space although there was still concern given the imaging findings on MRI. At the two week denis after surgery, the patient had his right shoulder sutures removed and upon removal, approximately 30 mL of purulent fluid was expressed through the medial aspect of the wound through which the AC joint was debrided. Even though his infection labs had been downtrending, there was concern based on this finding for a continued presence of the infection in the right shoulder. Based on his septic picture and combined with the exam and imaging findings of the left shoulder, we are also concerned about a septic left shoulder subacromial bursitis as well. The patient was counseled on treatment options. We recommended irrigation and debridement of bilateral shoulders, arthroscopic and open on the right and arthroscopic on the left to not include the glenohumeral joint so as to not to seed this confined joint to infection. The patient demonstrated understanding of the risks of surgery to include but not limited to bleeding, continued infection, pain, stiffness, need for further surgery and he was able to sign an informed consent. All questions were answered to his full satisfaction. ESTIMATED BLOOD LOSS: 30 mL IV FLUIDS: See anesthesia report. IV ANTIBIOTICS: He was just maintained on his current regimen per the hospitalist and ID doctors. No new antibiotics were given as they were already being scheduled. IMPLANTS: None. SPECIMENS: Right acromioclavicular joint swabs as well as distal clavicle were resected and sent for both biopsy and culture, both anaerobic and aerobic. The right posterior arm and subacromial space were also sent for aerobic and anaerobic. The left subacromial space was also sent for aerobic and anaerobic. DESCRIPTION OF THE PROCEDURE: The patient was met in the preoperative holding area where the correct name, identity, operative site, laterality and procedure were verified to be correct without discrepancies. The operative sites were marked by myself. The patient was then taken to the OR by nursing and anesthesia providers, placed supine on the operating room table. All bony prominences were padded in standard fashion. SCDs were placed on the legs, turned on and remained on throughout the case. The patient then underwent general anesthetic and placed under general anesthesia without complication. He was then positioned into the beach chair position starting with the right shoulder as the operative side. Once the right shoulder was cleaned with peroxide, it was prepped and draped in the usual sterile fashion using chlorhexidine. A timeout was then called. The patient's name, identity, operative site, laterality and procedure were verified without discrepancies. We also confirmed his being scheduled for IV antibiotics, no new antibiotics were needed. The right shoulder bony landmarks were marked and then the incisions were through the same previous incisions. After timeout was called, I started with the arthroscopic irrigation and debridement of the subacromial space. The arthroscope was introduced into the subacromial space and a 7x7 mm cannula was then introduced into the anterior portal. Six liters of normal saline were then irrigated through the subacromial space. To debride any inflamed tissue, we used a sucker shaver and to achieve hemostasis, we used a thermal ablator. Cultures were taken from this area. Once this was done, we turned our attention to the open areas of debridement. The other incisions that were made previously were opened. Specifically, the posterolateral abscess was opened and a large a evacuation of hematoma was performed. There was a bit of space in this area but no purulence was found. This and the other open wounds were copiously irrigated with six liters of normal as well. The AC joint when that was opened, we resected approximately 5 mm of distal clavicle for biopsy and culture. Other cultures were taken as well from the AC joint area. Once irrigation and debridement and cultures were completed, the wounds were then closed in layers. A small drain was left in the wound over the AC joint and one was also left in the posterolateral humeral incision where the hematoma was evacuated. These were sewn in. We closed the capsular layer of the AC joint with 0 Vicryl and then the rest was closed with 2-0 Vicryl and 2-0 nylon. The larger posterior incision was closed in a similar fashion, 2-0 PDS and 2-0 nylon. The rest of the portal sites were closed with 2-0 nylon. Sterile dressings were applied and the drapes were then taken down. The patient's position was transitioned 180 degrees so we could prep and drape the left side. Please note that the examination under anesthesia occurred on the right side as well as manipulation prior to prepping and draping. The same was then done on the left side after we changed the bed positioning slightly. Once we had done the exam under anesthesia, the left upper extremity was then cleaned with peroxide and it was then prepped and draped in the usual sterile fashion using chlorhexidine. Another timeout was then called, confirming the same things we confirmed earlier, this time the left shoulder instead of the right. Bony landmarks were marked out and incision was performed for a posterior portal and then I established an anterior portal, all staying within the subacromial space for arthroscopic irrigation and debridement. I used an accessory lateral portal as well as a working portal. A total of six liters of normal saline was irrigated through this incision. Cultures were taken prior to this and the shaver sucker and thermal ablator were also used to help debride tissue and maintain hemostasis respectively. Once the wounds were irrigated, they were closed with 2-0 nylon. Sterile dressings were applied and the patient was then transitioned from the beach chair position back to supine where he was aroused from anesthesia, having tolerated the procedure well and taken to the PACU. Postoperatively, he will be in bilateral slings for comfort. We will follow the cultures and hospitalist and ID will likely transition antibiotic needs based on these. I plan to take out the drains on postop day two and then sutures can come out at the two week denis. I will have him start working with physical and occupational therapy from the next couple of days after surgery just to work on gentle motion. The patient was receiving preop antibiotics on a scheduled basis prior to surgery. He will continue to get postop antibiotics after surgery and he will go back on DVT chemoprophylaxis per primary team.
[2021-01-22] MEDS: ACETAMINOPHEN 500 MG TAB PO PRN (21:32)
[2021-01-22] MEDS: METOPROLOL TART 50 MG TAB PO SCH (21:33)
[2021-01-22 22:00] VITALS: BP 144/79
[2021-01-23] MEDS: **hydrALAZINE** 50 MG TAB PO SCH ×5 (00:35→23:54)
[2021-01-23 06:00] VITALS: BP 128/60
[2021-01-23] MEDS: ceFAZolin SOD 2 GM in IV 1 EA IV SCH ×3 (06:07→21:33)
[2021-01-23] MEDS: SODIUM CHLORIDE 0.9% INJ 10 ML SYR IV SCH ×2 (06:08→18:00)
[2021-01-23 06:38] LABS: BASO # 0.1 10^3/uL (0.0-0.2); BASO % 0.7 % (0.0-1.0); EOS # 0.2 10^3/uL (0.0-0.5); EOS % 1.8 % (0.0-3.0); HEMATOCRIT 28.3 % (42.0-52.0); HEMOGLOBIN 8.5 g/dl (13.5-17.5); LYMPH # 1.4 10^3/uL (1.5-5.0); LYMPH % 14.2 % (24.0-44.0); MEAN CORPUSCULAR HEMOGLOBIN 27.3 pg (27.0-33.0); MONO # 1.1 10^3/uL (0.0-0.8); MONO % 10.6 % (2.0-8.0); NEUTROPHILS # 7.3 10^3/uL (1.5-8.5); NEUTROPHILS % 72.4 % (36.0-66.0); PLATELET COUNT, AUTOMATED 365 10^3/uL (150-450); RED BLOOD COUNT 3.11 10^6/uL (4.30-6.10)
[2021-01-23 07:01] LABS: C REACTIVE PROTEIN QUANTITATIV 7.3 MG/DL (0.00-0.30); CALCIUM LEVEL 7.4 MG/DL (8.5-10.1); CREATININE FOR GFR 1.82 MG/DL (0.70-1.30); GLOMERULAR FILTRATION RATE 42.5 (>60); MAGNESIUM LEVEL 1.8 MG/DL (1.8-2.4)
[2021-01-23] MEDS: ATORVASTATIN 20 MG TAB PO SCH (08:01)
[2021-01-23] MEDS: ASPIRIN 81MG ENTERIC TABLET PO SCH (08:01)
[2021-01-23] MEDS: TAMSULOSIN 0.4 MG CAP PO SCH (08:02)
[2021-01-23] MEDS: PANTOPRAZOLE 40MG TAB (PROTONIX) PO SCH (08:02)
[2021-01-23] MEDS: METOPROLOL TART 50 MG TAB PO SCH ×2 (08:02→21:22)
[2021-01-23] MEDS: LACTOBACILLUS ACIDOPHILUS CAP (BACID) PO SCH ×2 (08:03→21:21)
[2021-01-23] MEDS: HumaLOG INSULIN (NovoLOG) PER UNIT SC SCH ×4 (08:04→21:00)
[2021-01-23] MEDS: SENOKOT S TAB PO SCH ×2 (08:04→21:00)
[2021-01-23] MEDS: LEVEMIR (INSULIN DETEMIR) 1 UNITS/0.01ML SC SCH ×2 (08:04→21:20)
[2021-01-23] MEDS: MOM 30ML SUSPENSION UDC PO SCH (08:04)
--- NOTE | 2021-01-23 08:57 | IPNPDOC ---
Text Note Date of Service The patient was seen on 01/23/21. NOTE Subjective: Patient seen and examined at bedside. No acute overnight events reported. This morning he denies any shortness of breath. However, he still is requiring supplemental oxygen. He states he does feel like his legs are swollen. Objective: Vitals (See below) General: NAD, lying comfortably in bed HEENT: NC/AT, EOMI, poor dentition, nasal cannula in place Lungs: CTA B/L Heart: +S1S2, RRR Extremities: LLE wound, healing well, no drainage; B/L shoulder dressings in pl [place]; trace edema A/P: 50M with a PMHx of CAD s/p CABG, IDDM2, DLP, resented to the emergency room with confusion. Patient was brought to the hospital via EMS. Upon arrival to emergency room, patient was found to be in DKA and was admitted to the ICU for further management. Patient subsequently was found to have MSSA bacteremia, suspected to be from a prostate abscess. He went on to develop septic emboli to the lungs and to his right acromioclavicular joint and right proximal arm abscess. 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 Hospital stay further complicated with right pleural effusion. #s/p Sepsis - 2/2 MSSA bacteremia with septic emboli to lungs, prostate abscess, R proximal arm abscess, R acromioclavicular joint abscess - repeat washing by ortho of right shoulder - No fevers / remains hemodynamically stable - WBC and inflammatory markers have been trending down - Blood cultures 12/28: MSSA; Negative starting on 12/30; Repeat blood cultures 01/11: Negative - CONCEPCION no vegetations. EF of 65%, lipomatous hypertrophy of the atrial septum no RWMA - c/w Cefazolin; PICC line in place - ID on consultation; appreciate their input - discharge with delvance 1 dose on day after discharge - cefazolin while inpatient #right shoulder abscess - sutures removed with large amount of pus - repeat washing by ortho of right shoulder 01/21/21 - continue abx and f/u as per ortho and ID #left shoulder fluid collection? - s/p Evaluation of L shoulder; no fluid could be aspirated on 01/14; repeat aspiration 01/21/21 - c/w Percocet for pain control - c/w Antibiotics as above #PNA? - CT Chest 01/12: 1. Chronic elevation to the right hemidiaphragm and to the significant opacity on recent x-rays. However, there is new right lower lobe consolidation with air bronchograms and small to moderate right pleural effusion which appear increased from 12/30/2020. 2. Scattered bilateral rounded opacities are again noted which have relatively rapidly increased as compared with 12/23/2020 and are most suggestive of septic emboli/multifocal pneumonia. Differential diagnosis less likely includes metastatic disease. - completed zosyn, continue with cefazolin #pleural effusion - large right pleural effusion - plan for thoracentesis after 5 day plavix washout as per IR #acute hypoxic respiratory failure - possibly secondary to pleural effusion, fluid overload - lasix IV 40 x 1 today, received one dose 01/22/21 - as above, plan for thoracentesis tomorrow - incentive spirometry - discussed with pulm, assistance appreciated #Prostate abscess / s/p Urinary retention - s/p cystoscopy, right retrograde pyelogram, right ureteral stent placement, TURP prostate abscess on 12/31/20 - Johns catheter re-inserted on 01/13 for retention and will remain in place - Urology on consultation - dc home with johns - can use leg bag; o/p follow up #Bilateral hydronephrosis and hydroureter - 2/2 prostate abscess and trigonal inflammation - Had cysto with left ureteral stent placement on 12/25/20. Cysto showed severe inflammation of the trigone causing occlusion of the left ureteral orifice. - Again had cystoscopy, right retrograde pyelogram, right ureteral stent placement, TURP prostate abscess on 12/31/20 - Patient has left ureteral double J stent placed on 12/25/20 and right stent placement on 12/31/20 - Urology on consultation #Normocytic anemia - likely 2/2 anemia of chronic disease - in the setting of hematuria - discussed with urology, further eval pending - Iron panel, Vitamin b12, folate, Haptoglobin, LDH - noted - s/p 2 units PRBC - Hg improved; appears stable #DEANDRE - likely secondary to fluid overload - as above, diurese today #IDDM2 - s/p DKA and Insulin drip - c/w Levemir and ISS #Stage II ulcer on the left lateral supramalleolar region - c/w Wound care #s/p Hypernatremia #CAD s/p CABG (2014) - c/w Atorvastatin, Clopidogrel, Metoprolol #Elevated troponin - likely 2/2 demand ischemia - Denied any chest pain - EKG reviewed #DLP - c/w Atorvastatin #Hypertension - BP better controlled today - c/w Amlodipine, Metoprolol, Hydralazine, Lisinopril #GERD - c/w Protonix #DVT prophylaxis - c/w TEDs / Sequentials Dispo: thoracentesis planned for Sunday; continue IV antibiotics; ortho, ID, urology follow up VS,Santhosh, I+O VS, Santhosh, I+O Laboratory Tests 01/23/21 06:19 Vital Signs Date Time Temp Pulse Resp B/P (MAP) Pulse Ox O2 Delivery O2 Flow Rate FiO2 01/23/21 08:01 78 128/60 01/23/21 06:00 97.9 21 91 Nasal Cannula 2.0 I&O- Last 24 Hours up to 6 AM 01/23/21 06:00 Intake Total 2220 ml Output Total 650 ml Balance 1570 ml JUVENTINO DAVE MD January 23, 2021 08:56
[2021-01-23] MEDS ORDERED: FUROSEMIDE 40MG/4ML VIAL (J1940) IV ONE (10:00)
--- NOTE | 2021-01-23 13:43 | IPNPDOC ---
Text Note Date of Service The patient was seen on 01/23/21. NOTE Date of Service The patient was seen on 01/23/21. NOTE S: Doing well this AM, no issues to speak of. Shoulders in pain as expected. No other complaints O: VSSWNL Bilateral Shoulder: dressings c/d/i, no strikethrough; ROM deferred, NVID Labs: WBC 10(10.3) CRP 7.30(5.79) Micro: no growth of any cultures A: 50 yo M s/p bilateral shoulder irrigation and debridement (right open AC joint, arthroscopic subacromial space, open posterolateral wound; left subacromial space arthroscopic) on 01/21/2021 with previous right shoulder irrigation and debridement (open AC joint, arthroscopic subacromial space, open posterolateral wound) on , doing well post-operatively Slight elevation in CRP expected based on time line from most recent surgery Plan - No purulence found on washout, do not expect need for further washouts but will maintain high level of suspicion - Small drains removed today; okay for dressing change on POD5 (Sunday); sutures out no earlier than 2 weeks post-op. - Follow cultures; antibiotics per ID/Hospitalist - Pain control, DVT chemoprophylaxis, diet - per primary team - Gentle shoulder ROM with PT okay as soon as possible - Bilateral shoulder sling for comfort, take off daily for wrist and elbow motion - Continue to follow infection labs Questions please call [phone] Kaden VSSanthosh I+O Santhosh SORIANO I+O Laboratory Tests 01/23/21 06:19 Vital Signs Date Time Temp Pulse Resp B/P (MAP) Pulse Ox O2 Delivery O2 Flow Rate FiO2 01/23/21 12:52 149/83 01/23/21 08:01 78 01/23/21 06:00 97.9 21 91 Nasal Cannula 2.0 I&O- Last 24 Hours up to 6 AM 01/23/21 06:00 Intake Total 2220 ml Output Total 650 ml Balance 1570 ml DRE DENNIS MD January 23, 2021 13:43
[2021-01-23 14:00] VITALS: BP 149/83
[2021-01-23] MEDS: ACETAMINOPHEN 500 MG TAB PO PRN (21:21)
[2021-01-23] MEDS: SODIUM CHLORIDE 0.9% INJ 10 ML SYR IV PRN (21:34)
[2021-01-24] VITALS (7 sets, daily range): BP systolic 133–179; BP diastolic 78–94
[2021-01-24] MEDS: ceFAZolin SOD 2 GM in IV 1 EA IV SCH ×3 (05:48→21:39)
[2021-01-24] MEDS: SODIUM CHLORIDE 0.9% INJ 10 ML SYR IV SCH ×2 (05:49→17:29)
[2021-01-24] MEDS: **hydrALAZINE** 50 MG TAB PO SCH ×3 (05:56→17:28)
[2021-01-24 06:20] LABS: BASO # 0.1 10^3/uL (0.0-0.2); BASO % 0.6 % (0.0-1.0); EOS # 0.2 10^3/uL (0.0-0.5); EOS % 2.1 % (0.0-3.0); HEMATOCRIT 28.1 % (42.0-52.0); HEMOGLOBIN 8.7 g/dl (13.5-17.5); LYMPH # 2.3 10^3/uL (1.5-5.0); LYMPH % 23.2 % (24.0-44.0); MEAN CORPUSCULAR VOLUME 90.4 fl (80.0-96.0); MONO % 10.5 % (2.0-8.0); NEUTROPHILS # 6.2 10^3/uL (1.5-8.5); NEUTROPHILS % 63.2 % (36.0-66.0); PLATELET COUNT, AUTOMATED 385 10^3/uL (150-450); RED BLOOD COUNT 3.11 10^6/uL (4.30-6.10); WHITE BLOOD COUNT 9.9 10^3/uL (4.0-10.0)
[2021-01-24 06:50] LABS: C REACTIVE PROTEIN QUANTITATIV 6.04 MG/DL (0.00-0.30); CALCIUM LEVEL 7.6 MG/DL (8.5-10.1); CREATININE FOR GFR 1.44 MG/DL (0.70-1.30); GLOMERULAR FILTRATION RATE 55.7 (>60); MAGNESIUM LEVEL 1.7 MG/DL (1.8-2.4); POTASSIUM SERUM 3.7 MEQ/L (3.5-5.1)
[2021-01-24] MEDS: HumaLOG INSULIN (NovoLOG) PER UNIT SC SCH ×4 (07:30→20:20)
[2021-01-24] MEDS ORDERED: MAG SULF 1GM/100ML (MAG RUN) 1 GM in IV 1 EA IV ONE (08:00)
[2021-01-24] MEDS: LEVEMIR (INSULIN DETEMIR) 1 UNITS/0.01ML SC SCH ×2 (08:03→21:38)
[2021-01-24] MEDS: ASPIRIN 81MG ENTERIC TABLET PO SCH (08:50)
[2021-01-24] MEDS: LACTOBACILLUS ACIDOPHILUS CAP (BACID) PO SCH ×2 (08:51→21:38)
[2021-01-24] MEDS: ATORVASTATIN 20 MG TAB PO SCH (08:51)
[2021-01-24] MEDS: TAMSULOSIN 0.4 MG CAP PO SCH (08:51)
[2021-01-24] MEDS: METOPROLOL TART 50 MG TAB PO SCH ×2 (08:51→21:39)
[2021-01-24] MEDS: PANTOPRAZOLE 40MG TAB (PROTONIX) PO SCH (08:51)
[2021-01-24] MEDS: MOM 30ML SUSPENSION UDC PO SCH (08:52)
[2021-01-24] MEDS: SENOKOT S TAB PO SCH ×2 (08:52→21:00)
[2021-01-24] MEDS: SODIUM CHLORIDE 0.9% INJ 10 ML SYR IV PRN ×2 (09:48→14:29)
--- NOTE | 2021-01-24 15:31 | IPNPDOC ---
Text Note Date of Service The patient was seen on 01/24/21. NOTE Subjective: Patient seen and examined at bedside. No acute overnight events reported. This morning he denies any shortness of breath. He feels his swelling has improved. Objective: Vitals (See below) General: NAD, lying comfortably in bed HEENT: NC/AT, EOMI, poor dentition, nasal cannula in place Lungs: CTA B/L Heart: +S1S2, RRR Extremities: LLE wound, healing well, no drainage; B/L shoulder dressings in place; trace edema A/P: 50M with a PMHx of CAD s/p CABG, IDDM2, DLP, resented to the emergency room with confusion. Patient was brought to the hospital via EMS. Upon arrival to emergency room, patient was found to be in DKA and was admitted to the ICU for further management. Patient subsequently was found to have MSSA bacteremia, suspected to be from a prostate abscess. He went on to develop septic emboli to the lungs and to his right acromioclavicular joint and right proximal arm abscess. 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 Hospital stay further co mplicated with right pleural effusion. #s/p Sepsis - 2/2 MSSA bacteremia with septic emboli to lungs, prostate abscess, R proximal arm abscess, R acromioclavicular joint abscess - repeat washing by ortho of right shoulder - No fevers / remains hemodynamically stable - WBC and inflammatory markers have been trending down - Blood cultures 12/28: MSSA; Negative starting on 12/30; Repeat blood cultures 01/11: Negative - CONCEPCION no vegetations. EF of 65%, lipomatous hypertrophy of the atrial septum no RWMA - c/w Cefazolin; PICC line in place - ID on consultation; appreciate their input - discharge with delvance 1 dose on day after discharge - cefazolin while inpatient #right shoulder abscess - sutures removed with large amount of pus - repeat washing by ortho of right shoulder 01/21/21 - continue abx and f/u as per ortho and ID #left shoulder fluid collection? - s/p Evaluation of L shoulder; no fluid could be aspirated on 01/14; repeat aspiration 01/21/21; drains removed 01/23/21; - c/w Percocet for pain control - c/w Antibiotics as above #PNA? - CT Chest 01/12: 1. Chronic elevation to the right hemidiaphragm and to the significant opacity on recent x-rays. However, there is new right lower lobe consolidation with air bronchograms and small to moderate right pleural effusion which appear increased from 12/30/2020. 2. Scattered bilateral rounded opacities are again noted which have relatively rapidly increased as compared with 12/23/2020 and are most suggestive of septic emboli/multifocal pneumonia. Differential diagnosis less likely includes metastatic disease. - completed zosyn, continue with cefazolin #pleural effusion - large right pleural effusion - plan for thoracentesis after 5 day plavix washout as per IR #acute hypoxic respiratory failure - resolved - off supplemental O2 - possibly secondary to pleural effusion, fluid overload - s/p iv lasix - as above, plan for thoracentesis - incentive spirometry - discussed with pulm, assistance appreciated #Prostate abscess / s/p Urinary retention - s/p cystoscopy, right retrograde pyelogram, right ureteral stent placement, TURP prostate abscess on 12/31/20 - Johns catheter re-inserted on 01/13 for retention and will remain in place - Urology on consultation - dc home with johns - can use leg bag; o/p follow up #Bilateral hydronephrosis and hydroureter - 2/2 prostate abscess and trigonal inflammation - Had cysto with left ureteral stent placement on 12/25/20. Cysto showed severe inflammation of the trigone causing occlusion of the left ureteral orifice. - Again had cystoscopy, right retrograde pyelogram, right ureteral stent placement, TURP prostate abscess on 12/31/20 - Patient has left ureteral double J stent placed on 12/25/20 and right stent placement on 12/31/20 - Urology on consultation #Normocytic anemia - likely 2/2 anemia of chronic disease - in the setting of hematuria - discussed with urology, further eval pending - Iron panel, Vitamin b12, folate, Haptoglobin, LDH - noted - s/p 2 units PRBC - Hg improved; appears stable #DEANDRE - improving - likely secondary to fluid overload - as above, s/p diuretic therapy #IDDM2 - s/p DKA and Insulin drip - c/w Levemir and ISS #Stage II ulcer on the left lateral supramalleolar region - c/w Wound care #s/p Hypernatremia #CAD s/p CABG (2014) - c/w Atorvastatin, Clopidogrel, Metoprolol #Elevated troponin - likely 2/2 demand ischemia - Denied any chest pain - EKG reviewed #DLP - c/w Atorvastatin #Hypertension - BP better controlled today - c/w Amlodipine, Metoprolol, Hydralazine, Lisinopril #GERD - c/w Protonix #DVT prophylaxis - c/w TEDs / Sequentials Dispo: thoracentesis planned for Sunday; continue IV antibiotics; ortho, ID, urology follow up VS,Fishbone, I+O VS, Fishbone, I+O Laboratory Tests 01/24/21 05:46 01/24/21 05:47 Vital Signs Date Time Temp Pulse Resp B/P (MAP) Pulse Ox O2 Delivery O2 Flow Rate FiO2 01/24/21 15:22 152/84 (106) 01/24/21 14:00 99.3 88 20 94 Room Air 01/23/21 14:00 2.0 I&O- Last 24 Hours up to 6 AM 01/24/21 06:00 Intake Total 1130 ml Output Total 2800 ml Balance -1670 ml JUVENTINO DAVE MD January 24, 2021 15:31
[2021-01-24] MEDS ORDERED: LIDOCAINE 1% MDV 20ML VIAL As Ordered ONE (15:41)
--- NOTE | 2021-01-24 16:40 | REP ---
INDICATION: POST THORACENTESIS. Patient just at is post right thoracentesis under ultrasound guidance. COMPARISON: Comparison chest x-ray 22 Jan 2021. TECHNIQUE: Two views.. FINDINGS: There is no evidence of pneumothorax. Slight blunting of the pleural angles persists. A left-sided PICC line is noted in place unchanged. Median sternotomy wires are seen. Nodular densities are noted bilaterally in the lung parenchyma. IMPRESSION: No evidence of complication seen.. <Electronically signed by Ricardo Ann > 01/24/21 [id number]
--- NOTE | 2021-01-24 16:57 | REP ---
INDICATION: pleural effusion. COMPARISON: None. TECHNIQUE: The procedure was performed under the direct supervision of Dr. Moyer. The risks and benefits of the procedure were explained to the patient and informed consent was obtained. The right pleural effusion was localized using ultrasound guidance. The skin was prepped and draped in a sterile fashion. 1% lidocaine was used as a local anesthetic. Using ultrasound guidance an 8 Khmer multi side hole catheter was inserted using trocar technique. 635 cc of low viscosity red colored fluid was withdrawn and sent to the lab for analysis. The patient tolerated the procedure well and there were no immediate complications. After the appropriate amount to monitor convalescence the patient was discharged from the department. FINDINGS: None IMPRESSION: Ultrasound-guided right thoracentesis yielding 635 cc of low viscosity red colored fluid. <Electronically signed by Reinier Rush > 01/24/21 1647 <Electronically signed by Vincenzo Moyer > 01/24/21 [id number]
[2021-01-24 17:12] LABS: PH BODY FLUID 7.732 UNITS (NOT ESTABLISHED); SOURCE, BODY FLUID pH PLEURAL
[2021-01-24 17:35] LABS: SOURCE, BODY FLUID PLEURAL
[2021-01-24 17:36] LABS: APPEARANCE, BODY FLUID HAZY (CLEAR); PLEURAL FL COLOR PALE YELLOW (COLORLESS)
[2021-01-24 17:47] LABS: LDH, BODY FLUID 80 U/L (NOT ESTABLISHED); SOURCE, BODY FLUID ALBUMIN PLEURAL; SOURCE, BODY FLUID GLUCOSE PLEURAL; SOURCE, BODY FLUID LDH PLEURAL
[2021-01-25] MEDS: **hydrALAZINE** 50 MG TAB PO SCH ×5 (00:06→23:07)
[2021-01-25] MEDS: SODIUM CHLORIDE 0.9% INJ 10 ML SYR IV SCH ×2 (05:53→17:59)
[2021-01-25] MEDS: ceFAZolin SOD 2 GM in IV 1 EA IV SCH ×3 (05:53→21:04)
[2021-01-25 06:00] VITALS: BP 168/88
[2021-01-25 06:14] LABS: HEMATOCRIT 28.1 % (42.0-52.0); HEMOGLOBIN 8.7 g/dl (13.5-17.5); MEAN CORPUSCULAR VOLUME 90.4 fl (80.0-96.0); PLATELET COUNT, AUTOMATED 369 10^3/uL (150-450); RED BLOOD COUNT 3.11 10^6/uL (4.30-6.10); WHITE BLOOD COUNT 9.6 10^3/uL (4.0-10.0)
[2021-01-25 06:33] LABS: BLOOD UREA NITROGEN 14 MG/DL (7-18); CALCIUM LEVEL 7.9 MG/DL (8.5-10.1); CARBON DIOXIDE LEVEL 26 MEQ/L (21-32); CHLORIDE LEVEL 109 MEQ/L (98-107); CREATININE FOR GFR 1.21 MG/DL (0.70-1.30); GLOMERULAR FILTRATION RATE > 60.0 (>60); GLUCOSE, FASTING 90 MG/DL (70-100); POTASSIUM SERUM 3.9 MEQ/L (3.5-5.1); SODIUM LEVEL 140 MEQ/L (136-145)
[2021-01-25] MEDS: HumaLOG INSULIN (NovoLOG) PER UNIT SC SCH ×4 (07:30→20:55)
[2021-01-25] MEDS: MOM 30ML SUSPENSION UDC PO SCH (09:00)
[2021-01-25] MEDS: LEVEMIR (INSULIN DETEMIR) 1 UNITS/0.01ML SC SCH ×2 (09:00→21:02)
[2021-01-25] MEDS: PANTOPRAZOLE 40MG TAB (PROTONIX) PO SCH (09:32)
[2021-01-25] MEDS: SENOKOT S TAB PO SCH ×2 (09:32→21:00)
[2021-01-25] MEDS: ASPIRIN 81MG ENTERIC TABLET PO SCH (09:32)
[2021-01-25] MEDS: LACTOBACILLUS ACIDOPHILUS CAP (BACID) PO SCH ×2 (09:32→21:03)
[2021-01-25] MEDS: TAMSULOSIN 0.4 MG CAP PO SCH (09:32)
[2021-01-25] MEDS: ATORVASTATIN 20 MG TAB PO SCH (09:33)
[2021-01-25] MEDS: METOPROLOL TART 50 MG TAB PO SCH ×2 (09:36→21:03)
--- NOTE | 2021-01-25 13:54 | IPNPDOC ---
Text Note Date of Service The patient was seen on 01/25/21. NOTE Date of Service The patient was seen on 01/25/21. NOTE S: Doing well, no issues to speak of. Shoulders in pain as expected. No other complaints O: VSSWNL Bilateral Shoulder: dressings c/d/i, no strikethrough; ROM deferred, NVID Labs: WBC 10.3(10(10.3) CRP 6.04(7.30(5.79) Micro: some GPC on the left shoulder, otherwise no growth A: 50 yo M s/p bilateral shoulder irrigation and debridement (right open AC joint, arthroscopic subacromial space, open posterolateral wound; left subacromial space arthroscopic) on 01/21/2021 with previous right shoulder irrigation and debridement (open AC joint, arthroscopic subacromial space, open posterolateral wound) on , doing well post-operatively Plan - No purulence found on washout, do not expect need for further washouts but will maintain high level of suspicion - Small drains removed today; okay for dressing change on POD5 (Sunday); sutures out no earlier than 2 weeks post-op. - Follow cultures; antibiotics per ID/Hospitalist - Pain control, DVT chemoprophylaxis, diet - per primary team - Gentle shoulder ROM with PT okay as soon as possible - Bilateral shoulder sling for comfort, take off daily for wrist and elbow motion - Continue to follow infection labs Questions please call [phone] Kaden VSSanthosh, I+O VSSanthosh I+O Laboratory Tests 01/25/21 05:51 Vital Signs Date Time Temp Pulse Resp B/P (MAP) Pulse Ox O2 Delivery O2 Flow Rate FiO2 01/25/21 12:52 164/98 01/25/21 09:36 98 01/25/21 06:00 98.0 18 91 Room Air 01/23/21 14:00 2.0 I&O- Last 24 Hours up to 6 AM 01/25/21 06:00 Intake Total 1770 ml Output Total 2675 ml Balance -905 ml DRE DENNIS MD January 25, 2021 13:54
[2021-01-25 14:00] VITALS: BP 161/94
--- NOTE | 2021-01-25 16:43 | IPNPDOC ---
Text Note Date of Service The patient was seen on 01/25/21. NOTE Subjective: She was seen and examined at bedside today. Patient complaining of right upper extremity swelling especially in his hands that is making difficult to close his fist. He denies chest pain endorses some mild joint pain but improved from prior. This morning because me his breathing is much better and denies shortness of breath. No acute overnight events reported to me. Objective: Constitutional: Awake and alert, in no apparent distress ENT: Sclera are clear. Mucosa is moist. Respiratory: Lungs CTA bilaterally. No respiratory distress. On room air saturating at 92% Cardiovascular: RRR S1 and S2 are normal, no murmur Gastrointestinal: Abdomen is soft, non distended, non tender, BS present. Musculoskeletal: Right upper extremity does demonstrate increased edema compared to left side has difficulty closing his fist. Bilateral shoulder dressing in place. Left lower extremity wound healing well no drainage. Neurologic: No focal neurological deficit. Mental Status: A&O x3, normal affect Assessment/plan: 50M with a PMHx of CAD s/p CABG, IDDM2, DLP, resented to the emergency room with confusion. Patient was brought to the hospital via EMS. Upon arrival to emergency room, patient was found to be in DKA and was admitted to the ICU for further management. Patient subsequently was found to have MSSA bacteremia, suspected to be from a prostate abscess. He went on to develop septic emboli to the lungs and to his right acromioclavicular joint and right proximal arm abscess. 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 Hospital stay further complicated with right pleural effusion. #s/p Sepsis - 2/2 MSSA bacteremia with septic emboli to lungs, prostate abscess, R proximal arm abscess, R acromioclavicular joint abscess - repeat washing by ortho of right shoulder - No fevers / remains hemodynamically stable - WBC and inflammatory markers have been trending down - Blood cultures 12/28: MSSA; Negative starting on 12/30; Repeat blood cultures 01/11: Negative - CONCEPCION no vegetations. EF of 65%, lipomatous hypertrophy of the atrial septum no RWMA - c/w Cefazolin; PICC line in place - ID on consultation; appreciate their input - discharge with delvance 1 dose on day after discharge - cefazolin while inpatient #right shoulder abscess - sutures removed with large amount of pus - repeat washing by ortho of right shoulder 01/21/21 - continue abx and f/u as per ortho and ID #left shoulder fluid collection? - s/p Evaluation of L shoulder; no fluid could be aspirated on 01/14; repeat aspiration 01/21/21; drains removed 01/23/21; - c/w Percocet for pain control - c/w Antibiotics as above #Possible PNA - CT Chest 01/12: 1. Chronic elevation to the right hemidiaphragm and to the significant opacity on recent x-rays. However, there is new right lower lobe consolidation with air bronchograms and small to moderate right pleural effusion which appear increased from 12/30/2020. 2. Scattered bilateral rounded opacities are again noted which have relatively rapidly increased as compared with 12/23/2020 and are most suggestive of septic emboli/multifocal pneumonia. Differential diagnosis less likely includes metastatic disease. - completed zosyn, continue with cefazolin #pleural effusion - large right pleural effusion s/p thoracentesis by IR 01/24/21 #acute hypoxic respiratory failure - resolved after thoracocentesis - off supplemental O2 - possibly secondary to pleural effusion, fluid overload - s/p iv lasix - incentive spirometry #Prostate abscess / s/p Urinary retention - s/p cystoscopy, right retrograde pyelogram, right ureteral stent placement, TURP prostate abscess on 12/31/20 - Johns catheter re-inserted on 01/13 for retention and will remain in place - Urology on consultation - dc home with johns - can use leg bag; o/p follow up #Bilateral hydronephrosis and hydroureter - 2/2 prostate abscess and trigonal inflammation - Had cysto with left ureteral stent placement on 12/25/20. Cysto showed severe inflammation of the trigone causing occlusion of the left ureteral orifice. - Again had cystoscopy, right retrograde pyelogram, right ureteral stent placement, TURP prostate abscess on 12/31/20 - Patient has left ureteral double J stent placed on 12/25/20 and right stent placement on 12/31/20 - Urology on consultation, recommend leaving johns in at time of discharge and stents until he follows up in clinic. #Normocytic anemia - likely 2/2 anemia of chronic disease - in the setting of hematuria - discussed with urology, to be expected after stents. Will followup with urology in clinic. - s/p 2 units PRBC - Hg improved; appears stable #DEANDRE: Improved. likely secondary to fluid overload s/p diuretic therapy #IDDM2 : s/p DKA and Insulin drip. C/w Levemir and ISS #Stage II ulcer on the left lateral supramalleolar region: c/w Wound care #s/p Hypernatremia #CAD s/p CABG (2014): c/w Atorvastatin, Clopidogrel, Metoprolol #Elevated troponin - likely 2/2 demand ischemia, Denied any chest pain. latest trop negative. #DLP: c/w Atorvastatin #Hypertension: c/w Amlodipine, Metoprolol, Hydralazine, Lisinopril #GERD: c/w Protonix #DVT prophylaxis: c/w TEDs / Sequentials Dispo: continue IV antibiotics; ortho, ID, urology follow up A Yaneli Hospitalist VS,Santhosh, I+O VS, Santhosh I+O Laboratory Tests 01/25/21 05:51 Vital Signs Date Time Temp Pulse Resp B/P (MAP) Pulse Ox O2 Delivery O2 Flow Rate FiO2 01/25/21 14:00 99.2 79 20 161/94 (116) 92 Room Air 01/23/21 14:00 2.0 I&O- Last 24 Hours up to 6 AM 01/25/21 06:00 Intake Total 1770 ml Output Total 2675 ml Balance -905 ml BANG DAVILA MD January 25, 2021 16:43
--- NOTE | 2021-01-25 19:59 | REP ---
INDICATION: RUE swelling. COMPARISON: None. TECHNIQUE: Right upper extremity duplex venous ultrasound. FINDINGS: The internal jugular, axillary, brachial, and basilic veins are anechoic and compressible in the right upper extremity. Color flow imaging is homogeneous. Spectral Doppler interrogation is unremarkable. There is however, nonocclusive thrombus visible in the right cephalic vein in the mid and distal cephalic vein segment consistent with superficial right upper extremity vein thrombosis.. Study is otherwise unremarkable. IMPRESSION: There is nonocclusive thrombus in the right cephalic vein. Otherwise the right upper extremity veins are anechoic, compressible and patent.. <Electronically signed by Ricardo Ann > 01/25/211955
[2021-01-25 22:00] VITALS: BP 172/89
[2021-01-25] MEDS ORDERED: GABAPENTIN 300 MG CAP PO ONE (22:30)
[2021-01-26 06:00] VITALS: BP 156/84
[2021-01-26] MEDS: SODIUM CHLORIDE 0.9% INJ 10 ML SYR IV SCH ×2 (06:08→17:03)
[2021-01-26] MEDS: ceFAZolin SOD 2 GM in IV 1 EA IV SCH ×3 (06:09→21:14)
[2021-01-26] MEDS: **hydrALAZINE** 50 MG TAB PO SCH ×4 (06:09→23:04)
[2021-01-26 06:33] LABS: BASO # 0.1 10^3/uL (0.0-0.2); EOS # 0.3 10^3/uL (0.0-0.5); EOS % 3.4 % (0.0-3.0); HEMATOCRIT 28.4 % (42.0-52.0); HEMOGLOBIN 8.6 g/dl (13.5-17.5); LYMPH # 1.7 10^3/uL (1.5-5.0); LYMPH % 18.5 % (24.0-44.0); MEAN CORPUSCULAR HEMOGLOBIN 26.7 pg (27.0-33.0); MEAN CORPUSCULAR HGB CONC 30.3 g/dl (32.0-36.5); MEAN CORPUSCULAR VOLUME 88.2 fl (80.0-96.0); MONO % 10.5 % (2.0-8.0); NEUTROPHILS # 6.1 10^3/uL (1.5-8.5); NEUTROPHILS % 66.3 % (36.0-66.0); PLATELET COUNT, AUTOMATED 371 10^3/uL (150-450); RED BLOOD COUNT 3.22 10^6/uL (4.30-6.10); WHITE BLOOD COUNT 9.2 10^3/uL (4.0-10.0)
[2021-01-26 06:59] LABS: BLOOD UREA NITROGEN 14 MG/DL (7-18); CALCIUM LEVEL 7.9 MG/DL (8.5-10.1); CARBON DIOXIDE LEVEL 25 MEQ/L (21-32); CHLORIDE LEVEL 111 MEQ/L (98-107); CREATININE FOR GFR 1.13 MG/DL (0.70-1.30); GLOMERULAR FILTRATION RATE > 60.0 (>60); GLUCOSE, FASTING 87 MG/DL (70-100); POTASSIUM SERUM 3.8 MEQ/L (3.5-5.1); SODIUM LEVEL 141 MEQ/L (136-145)
[2021-01-26] MEDS: HumaLOG INSULIN (NovoLOG) PER UNIT SC SCH ×4 (07:30→21:00)
--- NOTE | 2021-01-26 08:02 | IPNPDOC ---
Text Note Date of Service The patient was seen on 01/26/21. NOTE Subjective: Patient seen and examined at bedside today. Tells me his right upper extremity swelling is about the same as yesterday and has not worsened. I discussed with him the results of his right upper extremity ultrasound showing a clot. Tells me that overnight he had neuropathic pain in his feet which she used to get and received gabapentin which helped. Tells me this morning his neuropathic pain is coming back and asking for schedule gabapentin. There is no acute overnight events reported to me. Tells me his breathing is doing well denies shortness of breath. Objective: Constitutional: Awake and alert, in no apparent distress ENT: Sclera are clear. Mucosa is moist. Respiratory: Lungs CTA bilaterally. No respiratory distress. Cardiovascular: RRR S1 and S2 are normal, no murmur Gastrointestinal: Abdomen is soft, non distended, non tender, BS present. Musculoskeletal: Right upper extremity does demonstrate increased edema compared to left side has difficulty closing his fist same as yesterday. Bilateral shoulder dressing in place. Left lower extremity wound healing well no drainage. Neurologic: No focal neurological deficit. Mental Status: A&O x3, normal affect Assessment/plan: 50M with a PMHx of CAD s/p CABG, IDDM2, DLP, resented to the emergency room with confusion. Patient was brought to the hospital via EMS. Upon arrival to emergency room, patient was found to be in DKA and was admitted to the ICU for further management. Patient subsequently was found to have MSSA bacteremia, suspected to be from a prostate abscess. He went on to develop septic emboli to the lungs and to his right acromioclavicular joint and right proximal arm abscess. Patient ultimately had a bilateral ureteral obstruction due to trigonal inflammation and had b ilateral ureteral stents placed and underwent TURP. Hospital stay further complicated with right pleural effusion. # RUE DVT: suspected to be provoked to his recent R shoulder abscess/washout. Given his hematuria will attempt 1 day of heparin drip today if we can get adequate vascular access. Otherwise can also use therapeutic lovenox but less ideal since his kidneys just recovered from DEANDRE. If his hgb doesn't significantly drop and he doesn't get rudolph hematuria we will be able to switch him to a NOAC for treatment of the DVT. #s/p Sepsis - 2/2 MSSA bacteremia with septic emboli to lungs, prostate abscess, R proximal arm abscess, R acromioclavicular joint abscess - repeat washing by ortho of right shoulder - No fevers / remains hemodynamically stable - WBC and inflammatory markers have been trending down - Blood cultures 12/28: MSSA; Negative starting on 12/30; Repeat blood cultures 01/11: Negative - CONCEPCION no vegetations. EF of 65%, lipomatous hypertrophy of the atrial septum no RWMA - c/w Cefazolin; PICC line in place - ID Dr Mckeon recommends 6 weeks total from last negative BCx. End date would be February 08. If goes to ARU can continue his IV cefazolin. Once discharged home will get 1.5g dalvance every 10 days until completion date. #right shoulder abscess - sutures removed with large amount of pus - repeat washing by ortho of right shoulder 01/21/21 - continue abx and f/u as per ortho and ID #left shoulder fluid collection/abscess - s/p Evaluation of L shoulder; no fluid could be aspirated on 01/14; repeat aspiration 01/21/21; drains removed 01/23/21; - c/w Percocet for pain control - c/w Antibiotics as above #Possible PNA - CT Chest 01/12: 1. Chronic elevation to the right hemidiaphragm and to the significant opacity on recent x-rays. However, there is new right lower lobe consolidation with air bronchograms and small to moderate right pleural effusion which appear increased from 12/30/2020. 2. Scattered bilateral rounded opacities are again noted which have relatively rapidly increased as compared with 12/23/2020 and are most suggestive of septic emboli/multifocal pneumonia. - completed treatment initially with zosyn and then on cefazolin. #pleural effusion - large right pleural effusion s/p thoracentesis by IR 01/24/21 - Breathing improved post thoracentesis saturating well on room air. #acute hypoxic respiratory failure - resolved after thoracocentesis - off supplemental O2 - Probably secondary to pleural effusion, fluid overload - s/p iv lasix - incentive spirometry #Prostate abscess with Urinary retention - s/p cystoscopy, right retrograde pyelogram, right ureteral stent placement, TURP prostate abscess on 12/31/20 - Johns catheter re-inserted on 01/13 for retention and will remain in place - Urology on consultation - dc home with johns - can use leg bag; o/p follow up #Bilateral hydronephrosis and hydroureter - 2/2 prostate abscess and trigonal inflammation - Had cysto with left ureteral stent placement on 12/25/20. Cysto showed severe inflammation of the trigone causing occlusion of the left ureteral orifice. - Again had cystoscopy, right retrograde pyelogram, right ureteral stent placement, TURP prostate abscess on 12/31/20 - Patient has left ureteral double J stent placed on 12/25/20 and right stent placement on 12/31/20 - Urology on consultation, recommend leaving johns in at time of discharge and stents until he follows up in clinic. #Normocytic anemia - likely 2/2 anemia of chronic disease and hematuria - in the setting of hematuria - discussed with urology, to be expected after stents. Will followup with urology in clinic. - s/p 2 units PRBC - Hg improved; appears stable #DEANDRE: Improved. likely secondary to fluid overload s/p diuretic therapy #IDDM2 : s/p DKA and Insulin drip. C/w Levemir and ISS #Stage II ulcer on the left lateral supramalleolar region: c/w Wound care #s/p Hypernatremia #CAD s/p CABG (2014): c/w Atorvastatin, Clopidogrel, Metoprolol #Elevated troponin - likely 2/2 demand ischemia, Denied any chest pain. latest trop negative. #DLP: c/w Atorvastatin #Hypertension: c/w Amlodipine, Metoprolol, Hydralazine, Lisinopril #GERD: c/w Protonix #DVT prophylaxis: c/w TEDs / Sequentials Dispo: continue IV antibiotics; ortho, ID, urology follow up A [facility] Hospitalist VSSanthosh, I+O VSSanthosh I+O Laboratory Tests 01/26/21 06:08 Vital Signs Date Time Temp Pulse Resp B/P (MAP) Pulse Ox O2 Delivery O2 Flow Rate FiO2 01/26/21 06:09 156/84 01/26/21 06:00 97.6 79 18 93 Room Air 01/23/21 14:00 2.0 I&O- Last 24 Hours up to 6 AM 01/26/21 06:00 Intake Total 2740 ml Output Total 3050 ml Balance -310 ml BANG DAVILA MD January 26, 2021 08:02
[2021-01-26] MEDS ORDERED: HEPARIN SOD (PORCINE) 5000UNITS/ML 1ML VIAL/SYRINGE IV PRN (08:15)
[2021-01-26] MEDS: SENOKOT S TAB PO SCH ×2 (09:00→21:00)
--- NOTE | 2021-01-26 09:43 | IPN ---
PROGRESS NOTE DATE: 01/25/2021 SUBJECTIVE: We discussed with Dr. Garo Groves today regarding his discharge planning. Patient is being considered for acute rehab versus discharge home. He had bilateral revision of shoulders done by Dr. Alfonso, incision and drainage (I and D) of the acromioclavicular (AC) joint. There is no evidence of purulence. Patient is in physical therapy. He is not complaining of any shortness of breath; no fever or chills. OBJECTIVE: Temperature is 99.2, pulse 79, respirations 20, blood pressure 161/94, O2 sat 92% on room air. On 01/25/2021, vascular ultrasound showed nonocclusive thrombus in the right cephalic vein; otherwise, the upper extremity veins are compressible and patent. Chest x-ray on 01/24/2021 shows no evidence of complication after thoracentesis, no evidence of pneumothorax; blunting of the pleural angle persists. There was a left-sided PICC line noted and median sternotomy. Thoracentesis done on 01/24/2021: 635 mL of low viscous red colored fluid was drained after analysis. Pleural fluid: pH 7.732, white cells 356, 7 red cells, 59% mononuclear cells, 40% PMNs Gram stain was negative. Culture is still pending. Respiratory panel on 01/21/2021 is pending. Cultures from both shoulders done on 01/21/2021 were no growth. LABS: White count 9.6, hemoglobin 8.7, hematocrit 28.1. Platelets 369. Sodium 140, potassium 3.95, chloride 109, bicarbonate 26,BUN 14, creatinine 1.21. Glucose 90, calcium 7.9, magnesium 1.7, CRP 6.04 down from 33.7 on admission. IMPRESSION: 1. Methicillin-sensitive staph aureus (MSSA) bacteria with sepsis with secondary septic emboli to the lung. 2. Bilateral shoulder infections, status post incision and drainage (I and D) on two occasions. 3. Prostatic abscess with bilateral renal stents and then incontinence. Patient is currently on IV papaverine two times every eight hours with improvement of his symptoms. He will continue a total of IV antibiotics until February 08, which will be six weeks total from negative cultures. He will keep the catheter in place until discharge from the hospital by local outpatient urology. If the patient is admitted to rehab, would continue with IV cefazolin to February 08. If the patient is discharged home, he did continue IV antibiotics in the form of Dalvance at 1.5 grams every 10 days for a total of 2 doses MTDD
[2021-01-26] MEDS: LEVEMIR (INSULIN DETEMIR) 1 UNITS/0.01ML SC SCH ×2 (10:45→21:13)
[2021-01-26] MEDS: LACTOBACILLUS ACIDOPHILUS CAP (BACID) PO SCH ×2 (10:46→21:12)
[2021-01-26] MEDS: ATORVASTATIN 20 MG TAB PO SCH (10:46)
[2021-01-26] MEDS: GABAPENTIN 300 MG CAP PO SCH ×2 (10:46→21:13)
[2021-01-26] MEDS: TAMSULOSIN 0.4 MG CAP PO SCH (10:46)
[2021-01-26] MEDS: ASPIRIN 81MG ENTERIC TABLET PO SCH (10:47)
[2021-01-26] MEDS: METOPROLOL TART 50 MG TAB PO SCH ×2 (10:48→21:13)
[2021-01-26 11:45] LABS: HEMATOCRIT 29.4 % (42.0-52.0); HEMOGLOBIN 8.8 g/dl (13.5-17.5); MEAN CORPUSCULAR HEMOGLOBIN 26.6 pg (27.0-33.0); MEAN CORPUSCULAR HGB CONC 29.9 g/dl (32.0-36.5); MEAN CORPUSCULAR VOLUME 88.8 fl (80.0-96.0); PLATELET COUNT, AUTOMATED 363 10^3/uL (150-450); RED BLOOD COUNT 3.31 10^6/uL (4.30-6.10); WHITE BLOOD COUNT 10.3 10^3/uL (4.0-10.0)
[2021-01-26] MEDS: HEPARIN DRIP 25,000 UNITS in IV 1 EA IV SCH ×2 (12:53→20:23)
[2021-01-26 14:00] VITALS: BP 172/87
[2021-01-26] MEDS: SODIUM CHLORIDE 0.9% INJ 10 ML SYR IV PRN ×3 (14:49→22:16)
[2021-01-26 22:00] VITALS: BP 162/83
[2021-01-27] MEDS: HEPARIN DRIP 25,000 UNITS in IV 1 EA IV SCH (04:10)
[2021-01-27] MEDS: ceFAZolin SOD 2 GM in IV 1 EA IV SCH ×3 (05:35→22:02)
[2021-01-27] MEDS: **hydrALAZINE** 50 MG TAB PO SCH ×4 (05:36→23:13)
[2021-01-27] MEDS: SODIUM CHLORIDE 0.9% INJ 10 ML SYR IV SCH ×2 (05:38→18:57)
[2021-01-27 06:00] VITALS: BP 183/95
[2021-01-27 06:01] LABS: BASO # 0.1 10^3/uL (0.0-0.2); BASO % 0.9 % (0.0-1.0); EOS # 0.4 10^3/uL (0.0-0.5); EOS % 4.2 % (0.0-3.0); HEMATOCRIT 28.1 % (42.0-52.0); HEMOGLOBIN 8.5 g/dl (13.5-17.5); LYMPH % 22.4 % (24.0-44.0); MEAN CORPUSCULAR HGB CONC 30.2 g/dl (32.0-36.5); MEAN CORPUSCULAR VOLUME 89.2 fl (80.0-96.0); MONO # 0.9 10^3/uL (0.0-0.8); NEUTROPHILS # 5.6 10^3/uL (1.5-8.5); NEUTROPHILS % 62.2 % (36.0-66.0); PLATELET COUNT, AUTOMATED 345 10^3/uL (150-450); RED BLOOD COUNT 3.15 10^6/uL (4.30-6.10)
[2021-01-27 06:28] LABS: BLOOD UREA NITROGEN 15 MG/DL (7-18); CALCIUM LEVEL 7.5 MG/DL (8.5-10.1); CARBON DIOXIDE LEVEL 28 MEQ/L (21-32); CHLORIDE LEVEL 110 MEQ/L (98-107); CREATININE FOR GFR 1.16 MG/DL (0.70-1.30); GLOMERULAR FILTRATION RATE > 60.0 (>60); GLUCOSE, FASTING 146 MG/DL (70-100); POTASSIUM SERUM 3.6 MEQ/L (3.5-5.1); SODIUM LEVEL 143 MEQ/L (136-145)
[2021-01-27] MEDS: SODIUM CHLORIDE 0.9% INJ 10 ML SYR IV PRN ×3 (08:12→23:11)
[2021-01-27] MEDS: LEVEMIR (INSULIN DETEMIR) 1 UNITS/0.01ML SC SCH ×2 (08:13→22:02)
[2021-01-27] MEDS: LACTOBACILLUS ACIDOPHILUS CAP (BACID) PO SCH ×2 (08:14→22:01)
[2021-01-27] MEDS: ASPIRIN 81MG ENTERIC TABLET PO SCH (08:14)
[2021-01-27] MEDS: SENOKOT S TAB PO SCH ×2 (08:14→21:00)
[2021-01-27] MEDS: HumaLOG INSULIN (NovoLOG) PER UNIT SC SCH ×4 (08:14→21:00)
[2021-01-27] MEDS: ATORVASTATIN 20 MG TAB PO SCH (08:14)
[2021-01-27] MEDS: GABAPENTIN 300 MG CAP PO SCH ×2 (08:14→22:02)
[2021-01-27] MEDS: METOPROLOL TART 50 MG TAB PO SCH ×2 (08:15→22:02)
[2021-01-27] MEDS: TAMSULOSIN 0.4 MG CAP PO SCH (08:21)
--- NOTE | 2021-01-27 11:08 | IPNPDOC ---
Text Note Date of Service The patient was seen on 01/27/21. NOTE Subjective: Patient seen and examined at bedside today. Has upper extremity swelling is about the same as yesterday. Not worse. He hasn't noticed any bleeding in his urine or elsewhere while on the heparin drip. I discussed with him that today we will transition him to an oral anticoagulant from the heparin drip. Tells me that the gabapentin has helped a lot with his neuropathic lower extremity pain which is not bothering him currently. He denies fevers or chills and tells me he has no shortness of breath. There is no acute overnight events reported to me. Objective: Constitutional: Awake and alert, in no apparent distress ENT: Sclera are clear. Mucosa is moist. Respiratory: Lungs CTA bilaterally. No respiratory distress. Cardiovascular: RRR S1 and S2 are normal, no murmur Gastrointestinal: Abdomen is soft, non distended, non tender, BS present. Musculoskeletal: Right upper extremity does demonstrate increased edema compared to left side appears slightly improved to me today. Bilateral shoulder dressing in place. Left lower extremity wound healing well no drainage. Neurologic: No focal neurological deficit. Mental Status: A&O x3, normal affect Assessment/plan: 50M with a PMHx of CAD s/p CABG, IDDM2, DLP, resented to the emergency room with confusion. Patient was brought to the hospital via EMS. Upon arrival to emergency room, patient was found to be in DKA and was admitted to the ICU for further management. Patient subsequently was found to have MSSA bacteremia, suspected to be from a prostate abscess. He went on to develop septic emboli to the lungs and to his right acromioclavicular joint and right proximal arm abscess. 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 Hospital stay further complicated with right pleural effusion. # RUE DVT: suspected to be provoked to his recent R shoulder abscess/washout: Was started on heparin drip january 12-01/27 without hematuria and stable hemoglobin, transitioned to eliquis. #s/p Sepsis - 2/2 MSSA bacteremia with septic emboli to lungs, prostate abscess, R proximal arm abscess, R acromioclavicular joint abscess - repeat washing by ortho of right shoulder - No fevers / remains hemodynamically stable - WBC and inflammatory markers have been trending down - Blood cultures 12/28: MSSA; Negative starting on 12/30; Repeat blood cultures 01/11: Negative - CONCEPCION no vegetations. EF of 65%, lipomatous hypertrophy of the atrial septum no RWMA - c/w Cefazolin; PICC line in place - ID Dr Mckeon recommends 6 weeks total from last negative BCx. End date would be February 08. If goes to rehab can continue his IV cefazolin. Once discharged home will get 1.5g dalvance every 10 days until completion date. #right shoulder abscess - sutures removed with large amount of pus - repeat washing by ortho of right shoulder 01/21/21 - continue abx and f/u as per ortho and ID #left shoulder fluid collection/abscess - s/p Evaluation of L shoulder; no fluid could be aspirated on 01/14; repeat aspiration 01/21/21; drains removed 01/23/21; - c/w Percocet for pain control - c/w Antibiotics as above #Possible PNA - CT Chest 01/12: 1. Chronic elevation to the right hemidiaphragm and to the significant opacity on recent x-rays. However, there is new right lower lobe consolidation with air bronchograms and small to moderate right pleural effusion which appear increased from 12/30/2020. 2. Scattered bilateral rounded opacities are again noted which have relatively rapidly increased as compared with 12/23/2020 and are most suggestive of septic emboli/multifocal pneumonia. - completed treatment initially with zosyn and then on cefazolin. #pleural effusion - large right pleural effusion s/p thoracentesis by IR 01/24/21 - Breathing improved post thoracentesis saturating well on room air. #acute hypoxic respiratory failure - resolved after thoracocentesis - off supplemental O2 - Probably secondary to pleural effusion, fluid overload - s/p iv lasix - incentive spirometry #Prostate abscess with Urinary retention - s/p cystoscopy, right retrograde pyelogram, right ureteral stent placement, TURP prostate abscess on 12/31/20 - Johns catheter re-inserted on 01/13 for retention and will remain in place - Urology on consultation - dc home with johns - can use leg bag; o/p follow up #Bilateral hydronephrosis and hydroureter - 2/2 prostate abscess and trigonal inflammation - Had cysto with left ureteral stent placement on 12/25/20. Cysto showed severe inflammation of the trigone causing occlusion of the left ureteral orifice. - Again had cystoscopy, right retrograde pyelogram, right ureteral stent placement, TURP prostate abscess on 12/31/20 - Patient has left ureteral double J stent placed on 12/25/20 and right stent placement on 12/31/20 - Urology on consultation, recommend leaving johns in at time of discharge and stents until he follows up in clinic. #Normocytic anemia - likely 2/2 anemia of chronic disease and hematuria - in the setting of hematuria - discussed with urology, to be expected after stents. Will followup with urology in clinic. - s/p 2 units PRBC - Hg improved; appears stable #DEANDRE: Improved. likely secondary to fluid overload s/p diuretic therapy #IDDM2 : s/p DKA and Insulin drip. C/w Levemir and ISS #Stage II ulcer on the left lateral supramalleolar region: c/w Wound care #s/p Hypernatremia #CAD s/p CABG (2014): c/w Atorvastatin, Clopidogrel, Metoprolol #Elevated troponin - likely 2/2 demand ischemia, Denied any chest pain. latest trop negative. #DLP: c/w Atorvastatin #Hypertension: c/w Amlodipine, Metoprolol, Hydralazine, Lisinopril #GERD: c/w Protonix #DVT prophylaxis: c/w TEDs / Sequentials Dispo: continue IV antibiotics; ortho, ID, urology follow up A [facility]ist Santhosh SORIANO I+O Santhosh SORIANO I+O Laboratory Tests 01/26/21 11:16 01/27/21 05:40 Vital Signs Date Time Temp Pulse Resp B/P (MAP) Pulse Ox O2 Delivery O2 Flow Rate FiO2 01/27/21 08:15 124 183/94 01/27/21 06:00 97.7 20 93 01/26/21 14:00 Room Air 01/23/21 14:00 2.0 I&O- Last 24 Hours up to 6 AM 01/27/21 05:59 Intake Total 1970 ml Output Total 3200 ml Balance -1230 ml BANG DAVILA MD January 27, 2021 11:08
[2021-01-27 14:00] VITALS: BP 164/77
[2021-01-27] MEDS ORDERED: APIXABAN 5 MG TAB (ELIQUIS) PO ONE (19:00)
[2021-01-27] MEDS: RAMELTEON 8 MG TAB (ROZEREM) PO PRN (22:03)
[2021-01-28] MEDS: **hydrALAZINE** 50 MG TAB PO SCH ×3 (05:16→18:16)
[2021-01-28] MEDS: SODIUM CHLORIDE 0.9% INJ 10 ML SYR IV SCH ×2 (05:16→18:16)
[2021-01-28] MEDS: ceFAZolin SOD 2 GM in IV 1 EA IV SCH ×3 (05:16→21:56)
[2021-01-28 05:45] LABS: BASO # 0.1 10^3/uL (0.0-0.2); BASO % 0.9 % (0.0-1.0); EOS # 0.5 10^3/uL (0.0-0.5); EOS % 5.2 % (0.0-3.0); HEMATOCRIT 27.5 % (42.0-52.0); HEMOGLOBIN 8.4 g/dl (13.5-17.5); LYMPH # 1.8 10^3/uL (1.5-5.0); LYMPH % 19.9 % (24.0-44.0); MEAN CORPUSCULAR HEMOGLOBIN 27.2 pg (27.0-33.0); MEAN CORPUSCULAR HGB CONC 30.5 g/dl (32.0-36.5); MONO # 0.9 10^3/uL (0.0-0.8); MONO % 10.2 % (2.0-8.0); NEUTROPHILS # 5.6 10^3/uL (1.5-8.5); NEUTROPHILS % 63.6 % (36.0-66.0); PLATELET COUNT, AUTOMATED 343 10^3/uL (150-450); RED BLOOD COUNT 3.09 10^6/uL (4.30-6.10); WHITE BLOOD COUNT 8.8 10^3/uL (4.0-10.0)
[2021-01-28 06:00] VITALS: BP 166/84
[2021-01-28 06:12] LABS: BLOOD UREA NITROGEN 14 MG/DL (7-18); CARBON DIOXIDE LEVEL 27 MEQ/L (21-32); CHLORIDE LEVEL 111 MEQ/L (98-107); CREATININE FOR GFR 1.14 MG/DL (0.70-1.30); GLOMERULAR FILTRATION RATE > 60.0 (>60); GLUCOSE, FASTING 85 MG/DL (70-100); POTASSIUM SERUM 3.7 MEQ/L (3.5-5.1); SODIUM LEVEL 143 MEQ/L (136-145)
[2021-01-28] MEDS: SODIUM CHLORIDE 0.9% INJ 10 ML SYR IV PRN ×3 (06:30→23:15)
[2021-01-28] MEDS: HumaLOG INSULIN (NovoLOG) PER UNIT SC SCH ×4 (07:30→21:00)
[2021-01-28] MEDS: LACTOBACILLUS ACIDOPHILUS CAP (BACID) PO SCH ×2 (08:16→21:55)
[2021-01-28] MEDS: SENOKOT S TAB PO SCH ×3 (08:16→21:00)
[2021-01-28] MEDS: ATORVASTATIN 20 MG TAB PO SCH (08:16)
[2021-01-28] MEDS: TAMSULOSIN 0.4 MG CAP PO SCH (08:17)
[2021-01-28] MEDS: ASPIRIN 81MG ENTERIC TABLET PO SCH (08:17)
[2021-01-28] MEDS: GABAPENTIN 300 MG CAP PO SCH ×2 (08:17→21:55)
[2021-01-28] MEDS: LEVEMIR (INSULIN DETEMIR) 1 UNITS/0.01ML SC SCH ×2 (08:18→21:56)
[2021-01-28] MEDS: APIXABAN 5 MG TAB (ELIQUIS) PO SCH ×2 (08:18→21:55)
[2021-01-28] MEDS: METOPROLOL TART 50 MG TAB PO SCH ×2 (08:18→21:55)
--- NOTE | 2021-01-28 13:58 | IPNPDOC ---
Text Note Date of Service The patient was seen on 01/28/21. NOTE Subjective: Patient seen and examined at bedside today. Has upper extremity swelling is about the same as yesterday. Not worse. He hasn't noticed any bleeding in his urine since starting the eliquis although he reports his urine looks orange. I explained to him again today why we transition him to an oral anticoagulant from the heparin drip. Tells me that the gabapentin has helped a lot with his neuropathic lower extremity pain which is not bothering him currently. He denies fevers or chills and tells me he has no shortness of breath. He is awaiting therapist to come evaluate him today, he's not sure how he'll do at home with his limit mobility at his shoulder. There is no acute overnight events reported to me. Objective: Constitutional: Awake and alert, in no apparent distress ENT: Sclera are clear. Mucosa is moist. Respiratory: Lungs CTA bilaterally. No respiratory distress. Cardiovascular: RRR S1 and S2 are normal, no murmur Gastrointestinal: Abdomen is soft, non distended, non tender, BS present. Musculoskeletal: Right upper extremity does demonstrate increased edema compared to left side appears same as yesterday. Bilateral shoulder dressing removed yesterday to air per ortho recs and sutures still in place. Left lower extremity wound healing well no drainage. Neurologic: No focal neurological deficit. Mental Status: A&O x3, normal affect Assessment/plan: 50M with a PMHx of CAD s/p CABG, IDDM2, DLP, resented to the emergency room with confusion. Patient was brought to the hospital via EMS. Upon arrival to emergency room, patient was found to be in DKA and was admitted to the ICU for further management. Patient subsequently was found to have MSSA bacteremia, suspected to be from a prostate abscess. He went on to develop septic emboli to the lungs and to his right acromioclavicular joint and right proximal arm abscess. 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 Hospital stay further complicated with right pleural effusion. He later developed RUE DVT which is now being treated with eliquis likely provoked from his shoulder surgery and immobility. # RUE DVT: suspected to be provoked to his recent R shoulder abscess/washout: Was started on heparin drip january 12-01/27 without hematuria and stable hemoglobin, transitioned to eliquis on 01/27/21 he'll be on 10mg bid for 10 days and then 5mg bid anticipated for at least 6 months. #s/p Sepsis - 2/2 MSSA bacteremia with septic emboli to lungs, prostate abscess, R proximal arm abscess, R acromioclavicular joint abscess - repeat washing by ortho of right shoulder - No fevers / remains hemodynamically stable - WBC and inflammatory markers have been trending down - Blood cultures 12/28: MSSA; Negative starting on 12/30; Repeat blood cultures 01/11: Negative - CONCEPCION no vegetations. EF of 65%, lipomatous hypertrophy of the atrial septum no RWMA - c/w Cefazolin; PICC line in place - ID Dr Mckeon recommends 6 weeks total from last negative BCx. End date would be February 08. If goes to rehab can continue his IV cefazolin. Once discharged home will get 1.5g dalvance every 10 days until completion date. #right shoulder abscess - sutures removed with large amount of pus - repeat washing by ortho of right shoulder 01/21/21 - continue abx and f/u as per ortho and ID #left shoulder fluid collection/abscess - s/p Evaluation of L shoulder; no fluid could be aspirated on 01/14; repeat aspiration 01/21/21; drains removed 01/23/21; - c/w Percocet for pain control - c/w Antibiotics as above #Possible PNA - CT Chest 01/12: 1. Chronic elevation to the right hemidiaphragm and to the significant opacity on recent x-rays. However, there is new right lower lobe consolidation with air bronchograms and small to moderate right pleural effusion which appear increased from 12/30/2020. 2. Scattered bilateral rounded opacities are again noted which have relatively rapidly increased as compared with 12/23/2020 and are most suggestive of septic emboli/multifocal pneumonia. - completed treatment initially with zosyn and then on cefazolin. #pleural effusion - large right pleural effusion s/p thoracentesis by IR 01/24/21 - Breathing improved post thoracentesis saturating well on room air. #acute hypoxic respiratory failure - resolved after thoracocentesis - off supplemental O2 - Probably secondary to pleural effusion, fluid overload - s/p iv lasix - incentive spirometry #Prostate abscess with Urinary retention - s/p cystoscopy, right retrograde pyelogram, right ureteral stent placement, TURP prostate abscess on 12/31/20 - Johns catheter re-inserted on 01/13 for retention and will remain in place - Urology on consultation - dc home with ojhns - can use leg bag; o/p follow up #Bilateral hydronephrosis and hydroureter - 2/2 prostate abscess and trigonal inflammation - Had cysto with left ureteral stent placement on 12/25/20. Cysto showed severe inflammation of the trigone causing occlusion of the left ureteral orifice. - Again had cystoscopy, right retrograde pyelogram, right ureteral stent placement, TURP prostate abscess on 12/31/20 - Patient has left ureteral double J stent placed on 12/25/20 and right stent placement on 12/31/20 - Urology on consultation, recommend leaving johns in at time of discharge and stents until he follows up in clinic. #Normocytic anemia - likely 2/2 anemia of chronic disease and hematuria - in the setting of hematuria - discussed with urology, to be expected after stents. Will followup with urology in clinic. - s/p 2 units PRBC - Hg improved; appears stable #DEANDRE: Improved. likely secondary to fluid overload s/p diuretic therapy #IDDM2 : s/p DKA and Insulin drip. C/w Levemir and ISS #Stage II ulcer on the left lateral supramalleolar region: c/w Wound care #s/p Hypernatremia #CAD s/p CABG (2014): c/w Atorvastatin, Clopidogrel, Metoprolol #Elevated troponin - likely 2/2 demand ischemia, Denied any chest pain. latest trop negative. #DLP: c/w Atorvastatin #Hypertension: c/w Amlodipine, Metoprolol, Hydralazine, Lisinopril #GERD: c/w Protonix #DVT prophylaxis: c/w TEDs / Sequentials Dispo: continue IV antibiotics; ortho, ID, urology follow up. Disposition at this point is dependent on his therapy re-evaluation today to determine home with PT/OT with rehab. A [facility] Hospitalist VSSanthosh, I+O VS, Santhosh, I+O Laboratory Tests 01/28/21 05:24 Vital Signs Date Time Temp Pulse Resp B/P (MAP) Pulse Ox O2 Delivery O2 Flow Rate FiO2 01/28/21 12:25 161/81 01/28/21 08:17 85 01/28/21 06:00 97.6 20 98 01/27/21 14:00 Room Air 01/23/21 14:00 2.0 I&O- Last 24 Hours up to 6 AM 01/28/21 06:00 Intake Total 2130 ml Output Total 3000 ml Balance -870 ml BANG DAVILA MD January 28, 2021 13:58
[2021-01-28 14:00] VITALS: BP 166/82
[2021-01-28] MEDS: PERCOCET 5MG/325MG TAB PO PRN (15:34)
--- NOTE | 2021-01-28 19:42 | IPN ---
PROGRESS NOTE DATE: 01/28/2021 SUBJECTIVE: Bernardo is doing well. He is anxious to go home, but he states he does not believe that he will be discharged until the nurses come and give him his discharge papers. He is in good spirits. He states his shoulder pain has improved and his range of motion as well. He has a right upper extremity DVT and has been started on Eliquis. He has some blood in his [place] catheter. Gabapentin has been helping with his pain. OBJECTIVE: HEART: Normal S1, S2. No murmurs. LUNGS: Clear. No wheezes, rales, or rhonchi. ABDOMEN: Obese, soft, and nontender. EXTREMITIES: Right upper extremity is with some pitting edema and multiple incisions with sutures in place. Range of motion limited. Abduction and flexion about 30 degrees. Left shoulder improved range of motion to abduction of 40 degrees. LABORATORY DATA: White count 8.8, hemoglobin 8.4, hematocrit 27.5, platelets 343,000, neutrophils 63%, lymphocytes 20%, monocytes 10%. Sodium 143, potassium 3.7, chloride 111, bicarb 27, BUN 14, creatinine 1.14, glucose 85, calcium 8. CRP on 01/24 was 6.04. IMPRESSION: 1. Right upper extremity deep vein thrombosis (DVT) currently on Eliquis with some hematuria. 2. Staphylococcus aureus bacteremia with septic emboli to the lungs, prosthetic abscess, shoulder abscesses, and right acromioclavicular joint abscess. Patient on intravenous (IV) cefazolin 2 grams every eight hours with plan to continue antibiotics until February 08. If the patient gets discharged before that date, he could receive dalvance IV 1.5 grams on the day of discharge. 3. Pleural effusion status post thoracentesis on 01/24, with no evidence of infection and cultures were negative. PLAN: Continue IV cefazolin until 02/08. Will repeat ESR, CRP, and CBC in the morning. HUMBERTO
[2021-01-28 21:24] LABS: C REACTIVE PROTEIN QUANTITATIV 4.16 MG/DL (0.00-0.30)
[2021-01-28] MEDS: RAMELTEON 8 MG TAB (ROZEREM) PO PRN (21:56)
[2021-01-28 22:00] VITALS: BP 175/85
[2021-01-29] MEDS: **hydrALAZINE** 50 MG TAB PO SCH ×5 (00:29→23:21)
[2021-01-29] MEDS: ceFAZolin SOD 2 GM in IV 1 EA IV SCH ×3 (05:30→21:44)
[2021-01-29] MEDS: SODIUM CHLORIDE 0.9% INJ 10 ML SYR IV SCH ×2 (05:31→17:48)
[2021-01-29 05:48] VITALS: BP 170/80
[2021-01-29 05:49] VITALS: BP_SYST 138
[2021-01-29 06:04] LABS: BASO # 0.1 10^3/uL (0.0-0.2); EOS # 0.4 10^3/uL (0.0-0.5); EOS % 5.4 % (0.0-3.0); HEMATOCRIT 28.6 % (42.0-52.0); HEMOGLOBIN 8.8 g/dl (13.5-17.5); LYMPH # 1.7 10^3/uL (1.5-5.0); LYMPH % 21.2 % (24.0-44.0); MEAN CORPUSCULAR HEMOGLOBIN 27.7 pg (27.0-33.0); MEAN CORPUSCULAR HGB CONC 30.8 g/dl (32.0-36.5); MEAN CORPUSCULAR VOLUME 89.9 fl (80.0-96.0); MONO # 0.9 10^3/uL (0.0-0.8); MONO % 11.1 % (2.0-8.0); NEUTROPHILS % 61.1 % (36.0-66.0); PLATELET COUNT, AUTOMATED 344 10^3/uL (150-450); RED BLOOD COUNT 3.18 10^6/uL (4.30-6.10); WHITE BLOOD COUNT 8.2 10^3/uL (4.0-10.0)
[2021-01-29 06:28] LABS: ERYTHROCYTE SEDIMENTATION RATE 86 mm/hr (0-15)
[2021-01-29 06:32] LABS: BLOOD UREA NITROGEN 15 MG/DL (7-18); CARBON DIOXIDE LEVEL 27 MEQ/L (21-32); CHLORIDE LEVEL 109 MEQ/L (98-107); CREATININE FOR GFR 1.06 MG/DL (0.70-1.30); GLOMERULAR FILTRATION RATE > 60.0 (>60); GLUCOSE, FASTING 89 MG/DL (70-100); POTASSIUM SERUM 3.6 MEQ/L (3.5-5.1); SODIUM LEVEL 142 MEQ/L (136-145)
[2021-01-29] MEDS: SODIUM CHLORIDE 0.9% INJ 10 ML SYR IV PRN ×3 (06:54→22:51)
[2021-01-29] MEDS: HumaLOG INSULIN (NovoLOG) PER UNIT SC SCH ×4 (07:30→21:00)
[2021-01-29] MEDS: LEVEMIR (INSULIN DETEMIR) 1 UNITS/0.01ML SC SCH ×2 (07:58→21:43)
[2021-01-29] MEDS: APIXABAN 5 MG TAB (ELIQUIS) PO SCH ×2 (08:47→21:43)
[2021-01-29] MEDS: ATORVASTATIN 20 MG TAB PO SCH (08:48)
[2021-01-29] MEDS: TAMSULOSIN 0.4 MG CAP PO SCH (08:48)
[2021-01-29] MEDS: LACTOBACILLUS ACIDOPHILUS CAP (BACID) PO SCH ×2 (08:48→21:42)
[2021-01-29] MEDS: ASPIRIN 81MG ENTERIC TABLET PO SCH (08:48)
[2021-01-29] MEDS: SENOKOT S TAB PO SCH ×3 (08:48→21:00)
[2021-01-29] MEDS: GABAPENTIN 300 MG CAP PO SCH ×2 (08:48→21:43)
[2021-01-29] MEDS: METOPROLOL TART 50 MG TAB PO SCH ×2 (08:49→21:43)
--- NOTE | 2021-01-29 12:56 | IPNPDOC ---
Text Note Date of Service The patient was seen on 01/29/21. NOTE Subjective: -He denies fevers or chills and tells me he has no shortness of breath -No acute overnight events Objective: Vitals: see below Constitutional: Awake and alert, in no apparent distress ENT: Sclera are clear. Mucosa is moist. Respiratory: Lungs CTA bilaterally. No respiratory distress. Cardiovascular: RRR S1 and S2 are normal, no murmur Gastrointestinal: Abdomen is soft, non distended, non tender, BS present. Musculoskeletal: RUE swelling as previously noted. Bilateral shoulders with sutures still in place. Left lower extremity wound healing well no drainage. Neurologic: No focal neurological deficit. Mental Status: A&O x3, normal affect Labs: WBC 8.2 Hgb 8.8 platelets 344 na 142 K 3.6 Cr .104 ESR 86 Assessment/plan: 50M with a PMHx of CAD s/p CABG, IDDM2, DLP, resented to the emergency room with confusion and admitted for DKA and was admitted to the ICU where he was found to septic with MSSA bacteremia, suspected to be from a prostate abscess with septic emboli to lungs, prosthetic abscess, shoulder abscesses, and right acromioclavicular joint abscess now s/p bilateral ureteral stents placed and underwent TURP and joint washouts by orthopedics and c/b RUE DVT now on eliquis and deconditioning with ongoing PT/OT pending rehab placement. # RUE DVT: suspected to be provoked to his recent R shoulder abscess/washout: Was started on heparin drip january 12-01/27 without hematuria and stable hemoglobin, transitioned to eliquis on 01/27/21 he'll be on 10mg bid for 7 days (day 3 of 10 BID) and then 5mg bid anticipated for at least 6 months. #Sepsis: Resolved - 2/2 MSSA bacteremia suspected source to have been prostatic abscess with septic emboli to lungs, R proximal arm abscess, R acromioclavicular joint abscess - s/p repeat washing by ortho of right shoulder - No fevers / remains hemodynamically stable at this time with WBC and inflammatory markers trending down - Blood cultures 12/28: MSSA; Negative starting on 12/30; Repeat blood cultures 01/11: Negative - CONCEPCION no vegetations. EF of 65%, lipomatous hypertrophy of the atrial septum no RWMA - c/w Cefazolin; PICC line in place - ID Dr Mckeon recommends 6 weeks total from last negative BCx. End date would be February 08. Once discharged home will get 1.5g dalvance every 10 days until completion date. Will confirm dalvance? at discharge plan with Mike before discharging home. #right shoulder abscess - sutures removed with large amount of pus --> had repeat washing by ortho of right shoulder 01/21/21 - continue abx and f/u as per ortho and ID #left shoulder fluid collection/abscess - s/p Evaluation of L shoulder; no fluid could be aspirated on 01/14; repeat aspiration 01/21/21; drains removed 01/23/21; - c/w Percocet for pain control - c/w Antibiotics as above #Possible PNA - CT Chest 01/12: 1. Chronic elevation to the right hemidiaphragm and to the significant opacity on recent x-rays. However, there is new right lower lobe consolidation with air bronchograms and small to moderate right pleural effusion which appear increased from 12/30/2020. 2. Scattered bilateral rounded opacities are again noted which have relatively rapidly increased as compared with 12/23/2020 and are most suggestive of septic emboli/multifocal pneumonia. - completed treatment initially with zosyn and then on cefazolin. #pleural effusion - large right pleural effusion s/p thoracentesis by IR 01/24/21 - Breathing improved post thoracentesis saturating well on room air. #acute hypoxic respiratory failure - resolved after thoracocentesis - off supplemental O2 - Probably secondary to pleural effusion, fluid overload - s/p iv lasix - incentive spirometry #Prostate abscess with Urinary retention - s/p cystoscopy, right retrograde pyelogram, right ureteral stent placement, TURP prostate abscess on 12/31/20 - Johns catheter re-inserted on 01/13 for retention and will remain in place - Urology on consultation - dc home with johns - can use leg bag; o/p follow up #Bilateral hydronephrosis and hydroureter - 2/2 prostate abscess and trigonal inflammation - Had cysto with left ureteral stent placement on 12/25/20. Cysto showed severe inflammation of the trigone causing occlusion of the left ureteral orifice. - Again had cystoscopy, right retrograde pyelogram, right ureteral stent placement, TURP prostate abscess on 12/31/20 - Patient has left ureteral double J stent placed on 12/25/20 and right stent placement on 12/31/20 - Urology on consultation, recommend leaving johns in at time of discharge and stents until he follows up in clinic. #Normocytic anemia - likely 2/2 anemia of chronic disease and hematuria - in the setting of hematuria - discussed with urology, to be expected after stents. Will followup with urology in clinic. - s/p 2 units PRBC - Hg improved; appears stable #DEANDRE: Resolved. likely secondary to fluid overload s/p diuretic therapy #IDDM2 : s/p DKA and Insulin drip. C/w Levemir and ISS #Stage II ulcer on the left lateral supramalleolar region: c/w Wound care #s/p Hypernatremia #CAD s/p CABG (2014): c/w Atorvastatin, Clopidogrel, Metoprolol #Elevated troponin - likely 2/2 demand ischemia, Denied any chest pain. latest trop negative. #DLP: c/w Atorvastatin #Hypertension: c/w Amlodipine, Metoprolol, Hydralazine, Lisinopril #GERD: c/w Protonix #DVT prophylaxis: c/w TEDs / Sequentials Dispo: continue IV antibiotics; ortho, ID, urology follow up. Disposition is ok for home per PT/OT on discussion with PT (Pedro) this AM. I would like to discharge him home but would like to confirm antibiotic plan with Dr. Mckeon before getting him home. VS,Fishbone, I+O VS, Fishbone, I+O Laboratory Tests 01/29/21 05:45 Vital Signs Date Time Temp Pulse Resp B/P (MAP) Pulse Ox O2 Delivery O2 Flow Rate FiO2 01/29/21 08:49 83 184/89 01/29/21 06:00 98.2 18 92 Room Air 01/23/21 14:00 2.0 I&O- Last 24 Hours up to 6 AM 01/29/21 06:00 Intake Total 1100 ml Output Total 3800 ml Balance -2700 ml DION ARIAS MD January 29, 2021 10:00
--- NOTE | 2021-01-29 13:51 | IPNPDOC ---
Subjective Review oF Systems Chief Complaint The patient is a 50-year-old male admitted with a reason for visit of Dka (Diabetic Ketocidoses). General: Reports: Normal Appetite; Denies: Fatigue, Malaise Constitutional: Denies: Fever, Chills, Sweats, Weakness, Malaise Eyes: Denies: Pain, Vision change ENT: Denies: Head Aches, Sore Throat, Epistaxis Skin: Denies: Rash, Lesions, Breakdown, Nail Changes Pulmonary: Denies: Dyspnea, Cough Cardiovascular: Denies Chest Pain, Denies Palpitations Gastrointestinal: Denies: Nausea, Vomiting, Abdominal Pain Genitourinary: Denies: Dysuria, Frequency, Incontinence, Hematuria Hematologic: Denies: Bruising, Bleeding Excessively Endocrine: Denies: Polydipsia, Polyphagia, Polyuria Musculoskeletal: Denies: Neck Pain, Back Pain Objective Physical Examination General Exam: Alert, Cooperative, No Acute Distress Eye Exam: PERRLA, Conjunctiva & lids normal, EOMI; No: Sclera icteric ENT EXAM: Atraumatic, Mucous membr. moist/pink, Pharynx Normal Chest Exam: Clear to auscultation, Normal air movement ABDOMEN EXAM: Normal bowel sounds, Soft; No: Tenderness, Hepatospenomegaly Male Exam: Normal Genital Exam Neuro Exam: Normal Speech Psych Exam: Mental status NL, Mood NL Vital Signs/I&O Vital Signs Date Time Temp Pulse Resp B/P (MAP) Pulse Ox O2 Delivery O2 Flow Rate FiO2 01/29/21 08:49 83 184/89 01/29/21 06:00 98.2 18 92 Room Air 01/23/21 14:00 2.0 I&O- Last 24 Hours up to 6 AM 01/29/21 05:59 Intake Total 1460 ml Output Total 3750 ml Balance -2290 ml Laboratory Data Labs 24H Laboratory Tests 2 01/28/21 16:32: Bedside Glucose (Misc Panel) 125H 01/28/21 19:54: Bedside Glucose (Misc Panel) 148H 01/29/21 05:45: Immature Granulocyte % (Auto) 0.2, Neutrophils (%) (Auto) 61.1, Lymphocytes (%) (Auto) 21.2L, Monocytes (%) (Auto) 11.1H, Eosinophils (%) (Auto) 5.4H, Basophils (%) (Auto) 1.0, Neutrophils # (Auto) 5.0, Lymphocytes # (Auto) 1.7, Monocytes # (Auto) 0.9H, Eosinophils # (Auto) 0.4, Basophils # (Auto) 0.1, Nucleated Red Blo od Cells % (auto) 0.0, Erythrocyte Sedimentation Rate 86H, Anion Gap 6L, Glomerular Filtration Rate > 60.0, Calcium Level 8.0L 01/29/21 12:25: Bedside Glucose (Misc Panel) 124H CBC/BMP Laboratory Tests 01/29/21 05:45 FSBS Laboratory Tests Test 01/28/21 16:32 01/28/21 19:54 01/29/21 12:25 Range/Units Bedside Glucose (Misc Panel) 125 148 124 70-105 MG/DL Microbiology Microbiology 01/24/21 Gram Stain - Final, Complete 01/24/21 Body Fluid Culture - Final, Complete 01/21/21 Respiratory Virus Panel (PCR) (CHIDI) - Final, Complete 01/21/21 Gram Stain - Final, Complete 01/21/21 Wound Culture - Final, Complete 01/21/21 Anaerobic Culture - Final, Complete 01/21/21 Gram Stain - Final, Complete 01/21/21 Wound Culture - Final, Complete 01/21/21 Gram Stain - Final, Complete 01/21/21 Wound Culture - Final, Complete 01/21/21 Anaerobic Culture - Final, Complete 01/21/21 Gram Stain - Final, Complete 01/21/21 Wound Culture - Final, Complete 01/21/21 Anaerobic Culture - Final, Complete 01/21/21 Gram Stain - Final, Complete 01/21/21 Wound Culture - Final, Complete 01/21/21 Anaerobic Culture - Final, Complete 01/21/21 Anaerobic Culture - Final, Complete 01/20/21 Gram Stain - Final, Complete 01/20/21 Wound Culture - Final, Complete Assessment/Plan Date Seen The patient was seen on 01/29/21. Problems (1) DKA (diabetic ketoacidoses) Status: Acute (2) Sepsis Status: Acute (3) Cellulitis Status: Acute (4) Acute renal failure Status: Acute (5) Leg ulcer, left Status: Acute Plan/VTE VTE Prophylaxis Ordered?: Yes VTE Exclusion Mechanical Proph: N/A:VTE Prophy Ordered VTE Exclusion Pharmacological: N/A:VTE Prophy Ordered Plan/Urinary Catheter Reason for insertion/continuin: Acute obstruct/retention Plan Bernardo still has a [place] catheter indwelling draining dark colored urine. I discussed with him removing the catheter for a trial of voiding but he is very reluctant to have this performed at this time since he failed several miserably 2 weeks ago when this was tried. At that time he had no sensation of needing to void and was just dribbling catheter was put back in. He would like to wait and have it removed in the clinic. I discouraged him from this because if he needs a [place] catheter reinserted it will take too long. After this discussion, he agreed to having the catheter removed next week for a trial of voiding. SHAKIR SANTANA MD January 29, 2021 13:51
[2021-01-29 14:00] VITALS: BP 170/82
[2021-01-29] MEDS: RAMELTEON 8 MG TAB (ROZEREM) PO PRN (21:43)
[2021-01-29 22:00] VITALS: BP 178/86
[2021-01-30] MEDS: ceFAZolin SOD 2 GM in IV 1 EA IV SCH ×3 (05:12→21:26)
[2021-01-30] MEDS: SODIUM CHLORIDE 0.9% INJ 10 ML SYR IV SCH ×2 (05:13→17:16)
[2021-01-30] MEDS: SODIUM CHLORIDE 0.9% INJ 10 ML SYR IV PRN ×3 (05:16→22:25)
[2021-01-30] MEDS: **hydrALAZINE** 50 MG TAB PO SCH ×3 (05:16→17:14)
[2021-01-30 05:41] LABS: BASO # 0.1 10^3/uL (0.0-0.2); BASO % 0.9 % (0.0-1.0); EOS # 0.3 10^3/uL (0.0-0.5); EOS % 3.8 % (0.0-3.0); HEMATOCRIT 27.3 % (42.0-52.0); HEMOGLOBIN 8.2 g/dl (13.5-17.5); LYMPH # 1.7 10^3/uL (1.5-5.0); LYMPH % 19.3 % (24.0-44.0); MEAN CORPUSCULAR HEMOGLOBIN 26.7 pg (27.0-33.0); MEAN CORPUSCULAR VOLUME 88.9 fl (80.0-96.0); MONO # 0.9 10^3/uL (0.0-0.8); MONO % 10.6 % (2.0-8.0); NEUTROPHILS # 5.8 10^3/uL (1.5-8.5); NEUTROPHILS % 65.1 % (36.0-66.0); PLATELET COUNT, AUTOMATED 312 10^3/uL (150-450); RED BLOOD COUNT 3.07 10^6/uL (4.30-6.10); WHITE BLOOD COUNT 8.9 10^3/uL (4.0-10.0)
[2021-01-30 06:00] VITALS: BP 159/71
[2021-01-30 06:20] LABS: BLOOD UREA NITROGEN 15 MG/DL (7-18); CARBON DIOXIDE LEVEL 28 MEQ/L (21-32); CHLORIDE LEVEL 109 MEQ/L (98-107); CREATININE FOR GFR 1.15 MG/DL (0.70-1.30); GLOMERULAR FILTRATION RATE > 60.0 (>60); GLUCOSE, FASTING 113 MG/DL (70-100); POTASSIUM SERUM 3.6 MEQ/L (3.5-5.1); SODIUM LEVEL 142 MEQ/L (136-145)
[2021-01-30] MEDS: LEVEMIR (INSULIN DETEMIR) 1 UNITS/0.01ML SC SCH ×2 (08:30→21:26)
[2021-01-30] MEDS: SENOKOT S TAB PO SCH ×2 (08:33→21:00)
[2021-01-30] MEDS: HumaLOG INSULIN (NovoLOG) PER UNIT SC SCH ×4 (08:41→21:00)
[2021-01-30] MEDS: LACTOBACILLUS ACIDOPHILUS CAP (BACID) PO SCH ×2 (08:42→21:24)
[2021-01-30] MEDS: APIXABAN 5 MG TAB (ELIQUIS) PO SCH ×2 (08:43→21:25)
[2021-01-30] MEDS: TAMSULOSIN 0.4 MG CAP PO SCH (08:43)
[2021-01-30] MEDS: ATORVASTATIN 20 MG TAB PO SCH (08:43)
[2021-01-30] MEDS: GABAPENTIN 300 MG CAP PO SCH ×2 (08:43→21:25)
[2021-01-30] MEDS: ASPIRIN 81MG ENTERIC TABLET PO SCH (08:43)
[2021-01-30] MEDS: METOPROLOL TART 50 MG TAB PO SCH ×2 (08:44→21:25)
--- NOTE | 2021-01-30 11:55 | IPNPDOC ---
Subjective Review oF Systems Chief Complaint The patient is a 50-year-old male admitted with a reason for visit of Dka (Diabetic Ketocidoses). General: Reports: Normal Appetite; Denies: Fatigue, Malaise Constitutional: Denies: Fever, Chills, Sweats, Weakness, Malaise Eyes: Denies: Pain, Vision change ENT: Denies: Head Aches, Ear Pain, Dysphagia, Sinus Congestion, Post Nasal Drip, Sore Throat, Epistaxis, Other Symptoms Skin: Denies: Rash, Lesions, Breakdown, Nail Changes Pulmonary: Denies: Dyspnea, Cough, Pleuritic Chest Pain, Other Symptoms Cardiovascular: Denies Chest Pain, Denies Palpitations Gastrointestinal: Denies: Nausea, Vomiting, Abdominal Pain Genitourinary: Reports: Retention Hematologic: Denies: Bruising, Bleeding Excessively Endocrine: Denies: Polydipsia, Polyphagia, Polyuria Musculoskeletal: Denies: Neck Pain, Back Pain, Shoulder Pain, Arm Pain, Hand Pain, Leg Pain, Foot Pain, Joint Pain, Muscle Pain, Spasms, Other Symptoms Psych: Reports: Mood Normal; Denies: Anxiety, Depression Objective Physical Examination General Exam: Alert, Cooperative, No Acute Distress Eye Exam: PERRLA, Conjunctiva & lids normal, EOMI; No: Sclera icteric ENT EXAM: Atraumatic, Mucous membr. moist/pink, Pharynx Normal Chest Exam: Clear to auscultation, Normal air movement ABDOMEN EXAM: Normal bowel sounds, Soft; No: Tenderness, Hepatospenomegaly Male Exam: Normal Genital Exam Neuro Exam: Normal Speech Psych Exam: Mental status NL, Mood NL Vital Signs/I&O Vital Signs Date Time Temp Pulse Resp B/P (MAP) Pulse Ox O2 Delivery O2 Flow Rate FiO2 01/30/21 08:43 83 181/92 01/30/21 06:00 97.9 18 90 Room Air I&O- Last 24 Hours up to 6 AM 01/30/21 06:00 Intake Total 1770 ml Output Total 2525 ml Balance -755 ml Laboratory Data Labs 24H Laboratory Tests 2 01/29/21 12:25: Bedside Glucose (Misc Panel) 124H 01/29/21 17:11: Bedside Glucose (Misc Panel) 157H 01/29/21 19:48: Bedside Glucose (Misc Panel) 140H 01/30/21 05:26: Immature Granulocyte % (Auto) 0.3, Neutrophils (%) (Auto) 65.1, Lymphocytes (%) (Auto) 19.3L, Monocytes (%) (Auto) 10.6H, Eosinophils (%) (Auto) 3.8H, Basophils (%) (Auto) 0.9, Neutrophils # (Auto) 5.8, Lymphocytes # (Auto) 1.7, Monocytes # (Auto) 0.9H, Eosinophils # (Auto) 0.3, Basophils # (Auto) 0.1, Nucleated Red Blood Cells % (auto) 0.0, Anion Gap 5L, Glomerular Filtration Rate > 60.0, Calcium Level 8.0L CBC/BMP Laboratory Tests 01/30/21 05:26 FSBS Laboratory Tests Test 01/29/21 12:25 01/29/21 17:11 01/29/21 19:48 Range/Units Bedside Glucose (Misc Panel) 124 157 140 70-105 MG/DL Microbiology Microbiology 01/24/21 Gram Stain - Final, Complete 01/24/21 Body Fluid Culture - Final, Complete 01/21/21 Respiratory Virus Panel (PCR) (CHIDI) - Final, Complete 01/21/21 Gram Stain - Final, Complete 01/21/21 Wound Culture - Final, Complete 01/21/21 Anaerobic Culture - Final, Complete 01/21/21 Gram Stain - Final, Complete 01/21/21 Wound Culture - Final, Complete 01/21/21 Gram Stain - Final, Complete 01/21/21 Wound Culture - Final, Complete 01/21/21 Anaerobic Culture - Final, Complete 01/21/21 Gram Stain - Final, Complete 01/21/21 Wound Culture - Final, Complete 01/21/21 Anaerobic Culture - Final, Complete 01/21/21 Gram Stain - Final, Complete 01/21/21 Wound Culture - Final, Complete 01/21/21 Anaerobic Culture - Final, Complete 01/21/21 Anaerobic Culture - Final, Complete 01/20/21 Gram Stain - Final, Complete 01/20/21 Wound Culture - Final, Complete Assessment/Plan Date Seen The patient was seen on 01/30/21. Problems (1) DKA (diabetic ketoacidoses) Status: Acute (2) Sepsis Status: Acute (3) Cellulitis Status: Acute (4) Acute renal failure Status: Acute (5) Leg ulcer, left Status: Acute Plan/VTE VTE Prophylaxis Ordered?: Yes VTE Exclusion Mechanical Proph: N/A:VTE Prophy Ordered VTE Exclusion Pharmacological: N/A:VTE Prophy Ordered Plan/Urinary Catheter Reason for insertion/continuin: Acute obstruct/retention Plan Will have johns catheter removed Sunday morning for a Trial of Voiding. SHAKIR SANTANA MD January 30, 2021 11:55
[2021-01-30 14:00] VITALS: BP 161/85
--- NOTE | 2021-01-30 15:20 | IPNPDOC ---
Text Note Date of Service The patient was seen on 01/30/21. NOTE Subjective: -He denies fevers or chills and tells me he has no shortness of breath -No acute overnight events -Was seen by urology and decision was made to attempt voiding trial this coming week instead of waiting longer with johns catheter in -COuld not be discharged home because dalvance infusion appointments and plan were not set over the week in preparation for discharge. Will have to discuss and set up on Sunday after which we can discharge him home. -Had some mild hematuria yesterday AM, clearer this AM Objective: Vitals: see below Constitutional: Awake and alert, in no apparent distress ENT: Sclera are clear. Mucosa is moist. Respiratory: Lungs CTA bilaterally. No respiratory distress. Cardiovascular: RRR S1 and S2 are normal, no murmur Gastrointestinal: Abdomen is soft, non distended, non tender, BS present. Musculoskeletal: RUE swelling as previously noted. Bilateral shoulders with sutures still in place. Left lower extremity wound healing well no drainage. Neurologic: No focal neurological deficit. Mental Status: A&O x3, normal affect Labs: WBC 8.2 Assessment/plan: 50M with a PMHx of CAD s/p CABG, IDDM2, DLP, resented to the emergency room with confusion and admitted for DKA and was admitted to the ICU where he was found to septic with MSSA bacteremia, suspected to be from a prostate abscess with septic emboli to lungs, prosthetic abscess, shoulder abscesses, and right acromioclavicular joint abscess now s/p bilateral ureteral stents placed and underwent TURP and joint washouts by orthopedics and c/b RUE DVT now on eliquis and deconditioning with ongoing PT/OT pending rehab placement. # RUE DVT: suspected to be provoked to his recent R shoulder abscess/washout: Was started on heparin drip january 12-01/27 without hematuria and stable hemoglobin, transitioned to eliquis on 01/27/21 he'll be on 10mg bid for 7 days (day 3 of 10 BID) and then 5mg bid anticipated for at least 6 months. #Sepsis: Resolved - 2/2 MSSA bacteremia suspected source to have been prostatic abscess with septic emboli to lungs, R proximal arm abscess, R acromioclavicular joint abscess - s/p repeat washing by ortho of right shoulder - No fevers / remains hemodynamically stable at this time with WBC and inflammatory markers trending down - Blood cultures 12/28: MSSA; Negative starting on 12/30; Repeat blood cultures 01/11: Negative - CONCEPCION no vegetations. EF of 65%, lipomatous hypertrophy of the atrial septum no RWMA - c/w Cefazolin; PICC line in place - ID Dr Mckeon recommends 6 weeks total from last negative BCx. End date would be February 08. Once discharged home will get 1.5g dalvance every 10 days until completion date. Will confirm dalvance? at discharge plan with Mike before discharging home. #right shoulder abscess - sutures removed with large amount of pus --> had repeat washing by ortho of right shoulder 01/21/21 - continue abx and f/u as per ortho and ID #left shoulder fluid collection/abscess - s/p Evaluation of L shoulder; no fluid could be aspirated on 01/14; repeat aspiration 01/21/21; drains removed 01/23/21; - c/w Percocet for pain control - c/w Antibiotics as above #Possible PNA - CT Chest 01/12: 1. Chronic elevation to the right hemidiaphragm and to the significant opacity on recent x-rays. However, there is new right lower lobe consolidation with air bronchograms and small to moderate right pleural effusion which appear increased from 12/30/2020. 2. Scattered bilateral rounded opacities are again noted which have relatively rapidly increased as compared with 12/23/2020 and are most suggestive of septic emboli/multifocal pneumonia. - completed treatment initially with zosyn and then on cefazolin. #pleural effusion - large right pleural effusion s/p thoracentesis by IR 01/24/21 - Breathing improved post thoracentesis saturating well on room air. #acute hypoxic respiratory failure - resolved after thoracocentesis - off supplemental O2 - Probably secondary to pleural effusion, fluid overload - s/p iv lasix - incentive spirometry #Prostate abscess with Urinary retention - s/p cystoscopy, right retrograde pyelogram, right ureteral stent placement, TURP prostate abscess on 12/31/20 - Johns catheter re-inserted on 01/13 for retention and will remain in place - Urology on consultation - dc home with johns - can use leg bag; o/p follow up #Bilateral hydronephrosis and hydroureter - 2/2 prostate abscess and trigonal inflammation - Had cysto with left ureteral stent placement on 12/25/20. Cysto showed severe inflammation of the trigone causing occlusion of the left ureteral orifice. - Again had cystoscopy, right retrograde pyelogram, right ureteral stent placement, TURP prostate abscess on 12/31/20 - Patient has left ureteral double J stent placed on 12/25/20 and right stent placement on 12/31/20 - Urology on consultation, recommend timely/prompt trial of removal of johns for void trial instead of keeping it in for weeks until clinic. Patient reluctant but agreed. #Normocytic anemia - likely 2/2 anemia of chronic disease and hematuria - in the setting of hematuria - discussed with urology, to be expected after stents. Will followup with urology in clinic. - s/p 2 units PRBC - Hg improved; monitoring with daily CBC #DEANDRE: Resolved. likely secondary to fluid overload s/p diuretic therapy #IDDM2 : s/p DKA and Insulin drip. C/w Levemir and ISS #Stage II ulcer on the left lateral supramalleolar region: c/w Wound care #s/p Hypernatremia #CAD s/p CABG (2014): c/w Atorvastatin, Clopidogrel, Metoprolol #Elevated troponin - likely 2/2 demand ischemia, Denied any chest pain. latest trop negative. #DLP: c/w Atorvastatin #Hypertension: c/w Amlodipine, Metoprolol, Hydralazine, Lisinopril #GERD: c/w Protonix #DVT prophylaxis: c/w TEDs / Sequentials Dispo: continue IV antibiotics; ortho, ID, urology follow up. Disposition is ok for home per PT/OT on discussion with PT (Pedro) this AM. I would like to discharge him home but would like to confirm antibiotic plan with Dr. Mike h[place] getting him home. VS,Fishbone, I+O VS, Fishbone, I+O Laboratory Tests 01/30/21 05:26 Vital Signs Date Time Temp Pulse Resp B/P (MAP) Pulse Ox O2 Delivery O2 Flow Rate FiO2 01/30/21 08:43 83 181/92 01/30/21 06:00 97.9 18 90 Room Air I&O- Last 24 Hours up to 6 AM 5/23/21 06:00 Intake Total 1770 ml Output Total 2525 ml Balance -755 ml DION ARIAS MD January 30, 2021 08:51
[2021-01-30 21:00] VITALS: BP 166/81
[2021-01-30] MEDS: RAMELTEON 8 MG TAB (ROZEREM) PO PRN (21:30)
[2021-01-31] MEDS: **hydrALAZINE** 50 MG TAB PO SCH ×3 (00:18→13:11)
[2021-01-31 06:00] VITALS: BP 166/87
[2021-01-31] MEDS: ceFAZolin SOD 2 GM in IV 1 EA IV SCH ×2 (06:04→14:42)
[2021-01-31] MEDS: SODIUM CHLORIDE 0.9% INJ 10 ML SYR IV SCH (06:04)
[2021-01-31 06:32] LABS: BASO # 0.1 10^3/uL (0.0-0.2); BASO % 0.8 % (0.0-1.0); EOS # 0.4 10^3/uL (0.0-0.5); EOS % 4.3 % (0.0-3.0); HEMATOCRIT 28.1 % (42.0-52.0); HEMOGLOBIN 8.7 g/dl (13.5-17.5); LYMPH # 1.8 10^3/uL (1.5-5.0); LYMPH % 19.9 % (24.0-44.0); MEAN CORPUSCULAR HEMOGLOBIN 27.7 pg (27.0-33.0); MEAN CORPUSCULAR VOLUME 89.5 fl (80.0-96.0); MONO % 10.3 % (2.0-8.0); NEUTROPHILS # 5.9 10^3/uL (1.5-8.5); NEUTROPHILS % 64.3 % (36.0-66.0); PLATELET COUNT, AUTOMATED 312 10^3/uL (150-450); RED BLOOD COUNT 3.14 10^6/uL (4.30-6.10); WHITE BLOOD COUNT 9.2 10^3/uL (4.0-10.0)
[2021-01-31 07:24] LABS: BLOOD UREA NITROGEN 17 MG/DL (7-18); CALCIUM LEVEL 8.2 MG/DL (8.5-10.1); CARBON DIOXIDE LEVEL 28 MEQ/L (21-32); CHLORIDE LEVEL 108 MEQ/L (98-107); GLOMERULAR FILTRATION RATE > 60.0 (>60); GLUCOSE, FASTING 114 MG/DL (70-100); POTASSIUM SERUM 3.7 MEQ/L (3.5-5.1); SODIUM LEVEL 140 MEQ/L (136-145)
[2021-01-31] MEDS: HumaLOG INSULIN (NovoLOG) PER UNIT SC SCH ×2 (07:30→13:12)
[2021-01-31] MEDS ORDERED: GABA-282 PO (08:58)
[2021-01-31] MEDS ORDERED: FLOM0.4C39 PO (08:58)
[2021-01-31] MEDS ORDERED: RISATAB3 PO (08:58)
[2021-01-31] MEDS ORDERED: ELIQ5TAB PO (08:58)
[2021-01-31] MEDS ORDERED: ASPI-551 PO (08:58)
[2021-01-31] MEDS ORDERED: SENN-52 PO (08:58)
[2021-01-31] MEDS: SENOKOT S TAB PO SCH (09:00)
[2021-01-31] MEDS: LEVEMIR (INSULIN DETEMIR) 1 UNITS/0.01ML SC SCH (09:00)
[2021-01-31 09:30] VITALS: BP 171/85
[2021-01-31] MEDS: ATORVASTATIN 20 MG TAB PO SCH (09:37)
[2021-01-31] MEDS: LACTOBACILLUS ACIDOPHILUS CAP (BACID) PO SCH (09:37)
[2021-01-31] MEDS: APIXABAN 5 MG TAB (ELIQUIS) PO SCH (09:38)
[2021-01-31] MEDS: ASPIRIN 81MG ENTERIC TABLET PO SCH (09:38)
[2021-01-31] MEDS: GABAPENTIN 300 MG CAP PO SCH (09:38)
[2021-01-31] MEDS: TAMSULOSIN 0.4 MG CAP PO SCH (09:38)
[2021-01-31] MEDS: METOPROLOL TART 50 MG TAB PO SCH (09:38)
[2021-01-31 12:19] VITALS: BP 173/85
[2021-01-31] MEDS ORDERED: INSU100V8 SQ (12:46)
[2021-01-31] MEDS ORDERED: PROB250C PO (12:46)
[2021-01-31] MEDS ORDERED: ADME100I SC (12:46)
--- NOTE | 2021-01-31 12:49 | DS.PDOC ---
Discharge Summary General Date of Admission Dec 23, 2020 at 13:28 Date of Discharge 01/31/2021 Attending Physician: DION ARIAS MD Discharge Summary PROCEDURES PERFORMED DURING STAY: 12/25 Cystoscopy, left retrograde pyelogram, stent insertion and Richmond catheterization and x-ray interpretation by Dr. Saleh 12/29 CONCEPCION 12/31 cystoscopy, right retrograde, right ureteral stent placement, TURP prostate abscess and x-ray interpretation with fluoroscopy, Dr. Saleh 01/[address] Alfonso 1. Right shoulder arthroscopic irrigation and debridement of the subacromial space. 2. Right shoulder irrigation and debridement of posterolateral proximal arm abscess. 3. Right AC joint irrigation and debridement with partial distal clavicle resection to send for biopsy. 4. Left subacromial space irrigation and debridement, arthroscopic. 5. Bilateral shoulder examination under anesthesia and manipulation under anesthesia. 01/24 Operative arthroscopy of bilateral shoulders, Dr. 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 COMPLICATIONS/CHIEF COMPLAINT: Dka (Diabetic Ketocidoses). HISTORY OF PRESENT ILLNESS: The patient initially presented on December, with lethargy and altered mental status after being found on the street by EMS and reporting that he ran out of his diabetic medication one week prior. HOSPITAL COURSE: Upon arrival to emergency room, patient was found to be in DKA and was admitted to the ICU for further management. Patient subsequently was found to have MSSA bacteremia, suspected to be from a prostate abscess. He went on to develop septic emboli to the lungs and to his right acromioclavicular joint and right proximal arm abscess. Patient ultimately had a bilateral ureteral obstruction due to trigonal inflammation and had bilateral ureteral stents placed and underwent a TURP. Hospital stay was further complicated by a right pleural effusion and bilateral shoulder seeding s/p washout. He later developed RUE DVT which is now being treated with eliquis likely provoked from his shoulder surgery and immobility. At this time he is now being discharged home and will complete his 6 weeks of antibiotics with don with outpatient ID, urology, orthopedics and PCP follow up. DISCHARGE MEDICATIONS: Please see below. ALLERGIES: Please see below. PHYSICAL EXAMINATION ON DISCHARGE: VITAL SIGNS: Please see below. Constitutional: Awake and alert, in no apparent distress ENT: Sclera are clear. Mucosa is moist. Respiratory: Lungs CTA bilaterally. No respiratory distress. Cardiovascular: RRR S1 and S2 are normal, no murmur Gastrointestinal: Abdomen is soft, non distended, non tender, BS present. Musculoskeletal: RUE swelling as previously noted. Left lower extremity wound healing well no drainage. Neurologic: No focal neurological deficit. Mental Status: A&O x3, normal affect LABORATORY DATA: Please see below. IMAGIN12/24/2020 TTE: 2D COMMENTS: 1. Normal left ventricular size with moderately increased left ventricular wallthickness. Low normal global left ventricular systolic function with an estimated left ventricular ejection fraction (LVEF) of 50 to 55%. 2. Mildly enlarged left atrium. Normal right atrium and right ventricle. 3. The atrial septum appears to be normal without evidence of defect or shunt. 4. Normal aortic root. 5. No pericardial effusion seen. 6. Mildly calcified aortic valve with normal leaflet excursion. Mildly calcified mitral annulus with normal anterior mitral valve leaflet motion. Normal tricuspid valve and pulmonic valve. The proximal pulmonary artery branches were not well visualized. 7. The inferior vena cava is mildly dilated. Central venous pressure might be elevated. DOPPLER: It detects trace aortic regurgitation. Abnormal relaxation pattern was noted across the mitral valve leaflets, as well as the mitral valve annulus consistentwith features of grade 1 left ventricular diastolic dysfunction. IMPRESSION: 1. Low normal global left ventricular systolic function with moderate concentric left ventricular hypertrophy. There are some features of grade 1 left ventricular diastolic dysfunction manifested by abnormal normal relaxation. 2. Aortic valve sclerosis with trace aortic regurgitation, but no aortic stenosis. 3. There are some features of elevated central venous pressure, the inferior vena cava was mildly enlarged. 12/29 CONCEPCION: CONCLUSIONS: 1. No vegetations. 2. Two moderate atheromatous plaques seen in the distal aortic arch and descending thoracic aorta. 3. Lipomatous hypertrophy of the interatrial septum. 4. Normal left ventricle size and systolic function. LVEF 65% by visual estimate. No regional LV wall motion abnormalities. 5. Otherwise normal appearing echocardiogram Doppler findings. 12/23: C-spine CT: No acute fracture or subluxation. Prevertebral soft tissues within normal limits. Craniovertebral junction is unremarkable. On the review of axial images, no definite canal or foraminal stenosis. IMPRESSION: No acute findings. 12/23 CXR: Prior median sternotomy. Elevated right hemidiaphragm. Suspected platelike atelectasis right base. Otherwise no acute disease.. 12/23 CT head: No acute findings. 12/23: Pelvic XR: Negative AP view of the pelvis. No fracture seen. 12/23: CT A/P: Limited evaluation of the solid intra-abdominal organs and gallbladder show no gross abnormalities or significant changes from the prior exam. Limited evaluation of the pancreas and adrenal glands show no gross abnormalities or significant changes from the prior exam. Limited evaluation of the adrenal glands and right kidney show no gross abnormalities or significant changes from the prior exam. Chronic right renal atrophic changes are again noted. Moderate left-sided hydronephrosis and hydroureter has developed since the last exam. There is mild associated Antonina ureteral edema. There is rather extensive perivesicular edema with abnormal thickening of the posterior and left urinary bladder fernandez no definite urinary collecting system calcifications are identified. Note is again made of calcifications within the seminal vesicles and pelvic vascular structures status quo. Limited evaluation of the bowel loops show no abnormalities or significant changes from the prior exam. Limited evaluation of the abdominal aorta and para aortic regions show no gross abnormalities or significant changes from the prior exam. Bone window technique throughout the examination shows the osseous structures to be within normal limits. IMPRESSION: There is abnormal thickening of the fernandez of the urinary bladder, as described above, along with perivesicular fatty infiltration. This is seen in conjunction with reactive left-sided hydronephrosis and hydroureter with both findings likely secondary to urosepsis. Certainly, this would need to be correlated clinically. 12/23: CT chest without contrast: There is no gross mediastinal or hilar adenopathy. There are no pleural or pericardial effusions. The imaged osseous structures are within normal limits. The patient is status post previous median sternotomy. Evaluation of the lung veronica shows numerable scattered pulmonary nodules and asymmetric densities. These vary in size from 3 mm to over a cm. The are too numerous to count or individually assess. IMPRESSION: Limited noncontrast enhanced examination shows abnormal lung veronica as described above. Neoplastic versus infectious versus atelectatic in etiology. Three- month follow-up diagnostic contrast-enhanced CT examination of the chest is recommended as per the revised Fleischner society criteria. Certainly, if clinically warranted PET-CT could be obtained. 12/24 Renal US: Multiple ultrasonographic images of the right kidney show the right kidney to measure 10.8 x 4.5 x 4.7 cm. The renal cortical echotexture is thinned but otherwise unremarkable. There are no masses. There is good corticomedullary di fferentiation. There is no hydronephrosis. There are no perinephric fluid collections. In the midpole region there is a 1 cm sized anechoic structure which exhibits posterior wall enhancement and increased through transmission Multiple ultrasonographic images of the left kidney show the left kidney to measure 15.0 x 6.3 x 7.9 cm. The renal cortical echotexture is unremarkable. There are no masses. There is good corticomedullary differentiation. There is mild hydronephrosis. There are no perinephric fluid collections. IMPRESSION: 1. Thinned right renal cortex slightly secondary to chronic change. There is an incidental simple right renal cyst. 2. There is mild left-sided hydronephrosis. 12/30 CT A/P: Preliminary digital tool clerk radiograph demonstrates median sternotomy wires and el evated right hemidiaphragm. There is a new small bilateral pleural effusion right greater than left. There are multifocal nodular densities in the lung bases bilaterally which are new. These may reflect septic emboli given their appearance in the short interval since the study done 1 week ago. There is compressive atelectatic changes in the lower lobes bilaterally. Liver and spleen adrenals and pancreas remain unremarkable. No abnormality noted in the gallbladder. The left kidney remains enlarged. A double pigtail left ureteral stent is seen in good position and left-sided hydronephrosis is resolved. Fused bladder wall thickening is observed with Richmond catheter and the distal end of the double-pigtail ureteral stent in the urinary bladder. There is extrarenal pelvis configuration of the right kidney but no right-sided hydroureter or significant hydronephrosis is seen. Small and large bowel loops are unremarkable. Pelvic images demonstrate a 2.3 cm low-density area posterior and to the left of the prosthetic urethra containing a Richmond catheter. This is consistent with a small prostate or periprostatic abscess. This appears to be somewhat loculated and extends several cm superior between the prostate and the adjacent rectum. Overall craniocaudal dimension is 3.2 cm. Small and large bowel loops are unremarkable. Normal appendix is seen. There is a tiny quantity of fluid along the left pericolic gutter. IMPRESSION: Findings consistent with left prostate abscess extending into the tissue between the posterior border of the prostate and the adjacent rectum on the left side. Richmond catheter. Left ureteral stent with improved left-sided hydronephrosis. Persistent swelling left kidney. Small bilateral pleural effusions are seen. Pulmonary nodules have developed in the bases suggesting septic emboli. 12/30 CT chest with IV contrast: Innumerable bilateral rounded pulmonary nodules and opacities have considerably increased in both quantity and size including right upper lobe lesions measuring greater than 3 cm diameter-some of which have central partially cavitary type changes. Small bilateral pleural effusions and scattered atelectasis is appreciated. Further evaluation is limited due to significant respiratory motion artifact. No pneumothorax. Reactive adenopathy noted. Tracheobronchial tree is patent. Mediastinum demonstrates stable atherosclerotic changes to the thoracic aorta and coronary arteries along with evidence for prior sternotomy and CABG. No aortic aneurysm or dissection. No pericardial effusion. Surrounding musculoskeletal structures are intact. IMPRESSION: Considerably increased pulmonary parenchymal changes as described above. Findings likely represent multifocal septic emboli/multifocal pneumonia with atelectasis and small pleural effusions. 01/01: R shoulder MRI without contrast: Bones and cartilage: There is very mild acromioclavicular arthrosis. A small effusion involves the acromioclavicular joint. There is mild glenohumeral chondromalacia. Mild productive changes are present along the greater tuberosity, with mild degenerative cystic changes posteriorly. Joint spaces: Fluid in the glenohumeral joint is within physiologic limits. Glenoid labrum: Mild increased signal in the superior glenoid labrum posteriorly could be degenerative or related to tear. Bursae: There is edema without discrete fluid in the subacromial, subdeltoid bursa. Supraspinatus tendon: Mild supraspinatus tendinopathy with a tiny partial-thickness tear at the footplate. Infraspinatus tendon: Mild infraspinatus tendinopathy. Subscapularis tendon: Unremarkable. No evidence of tear. Teres minor tendon: Unremarkable. No evidence of tear. Tendon of biceps brachii: Intact and in normal position. Glenohumeral ligaments: Unremarkable. Muscles: Moderate edema involves the anterior aspect of the deltoid muscle superiorly. Edema is also partially visualized medially in the supraspinatus muscle. Soft tissues: Partially visualized is subcutaneous edema, generally moderate, over much of the posterior and superior aspects of the shoulder, with extension medially over the anterior chest. In the deeper soft tissues just anterior to the distal clavicle, proximal to the acromioclavicular joint, is a collection measuring 9 x 9 x 12 mm (images 701:23, 601:9), which could represent an abscess in the setting of infection, or hematoma/seroma in the setting of trauma. IMPRESSION: 1. Degenerative changes as described. 2. Mild rotator cuff tendinopathy. 3. Partially visualized, generally moderate subcutaneous edema over much of the posterior and superior aspects of the shoulder, with extension medially over the anterior chest, and with moderate edema in the anterior aspect of the deltoid muscle superiorly and partially visualized medially in the supraspinatus muscle. Findings could be posttraumatic or related to infection, potentially with myositis. May consider imaging more medially to evaluate full extent. 4. Small fluid intensity signal focus in the deep soft tissues just anterior to the distal clavicle, could represent abscess in the setting of infection or hematoma/seroma in the setting of trauma. 5. Small effusion of the acromioclavicular joint, could be degenerative or infectious/inflammatory. 6. Mild increased signal in the superior glenoid labrum posteriorly, could be degenerative or related to tear. 01/03 Chest MRI without contrast: Lungs: See "Bones/joints" finding. Heart: Unremarkable. Pleural space: Multiple parenchymal opacities and pleural fluid in the visualized right hemithorax and to a lesser degree the left hemithorax, findings which can be seen with metastatic disease and or multifocal pneumonitis. Bones/joints: Acromioclavicular arthrosis with fluid in the acromioclavicular joint stable in comparison to the prior study. Moderate to severe degenerative changes in the glenohumeral joint including osteophytosis. Small glenohumeral joint effusion. Glenoid labrum not well evaluated, demonstrating degenerative changes in the anterior superior labrum otherwise grossly unremarkable. Abnormal signal demonstrated in the distal clavicle. Finding may be degenerative however the possibility of osteomyelitis not excluded. Increased signal demonstrated in the greater tuberosity likely degenerative associated with small subchondral degenerative cysts. Soft tissues: Soft tissue inflammatory changes demonstrated in the superior aspect of the shoulder surrounding the glenohumeral joint, extending into the lateral supraclavicular fossa and anteriorly along the subscapularis and pectoralis muscles. Minimal edema demonstrated tracking posterior along the soft tissue plane between the infraspinatus and deltoid. IMPRESSION: 1. Multiple parenchymal opacities and pleural fluid in the visualized right hemithorax and to a lesser degree the left hemithorax, findings which can be seen with metastatic disease and or multifocal pneumonitis. 2. Acromioclavicular arthrosis with fluid in the acromioclavicular joint stable in comparison to the prior study. 3. Moderate to severe degenerative changes in the glenohumeral joint including osteophytosis. Small glenohumeral joint effusion. 4. Inflammatory changes as described above consistent with reported history of periarticular abscess at the shoulder. 5. Abnormal signal demonstrated in the distal clavicle. Finding may be degenerative however the possibility of osteomyelitis not excluded. 6. Findings are grossly stable in comparison to the prior study of 01/01/2021. 01/12 R shoulder MRI without contrast: Rotator cuff: There is increased signal on T2 weighted images in portions of the rotator cuff muscles and tendons, increased since the prior study. Acromioclavicular joint: There are degenerative changes at the acromioclavicular joint with mild fluid in the joint and subchondral marrow edema. Acromion: Type 1 Biceps Tendon: In bicipital groove, no tenosynovitis. Hill Sach's deformity: None. Deltoid muscle: There is diffuse edema throughout the deltoid muscle which has significantly increased since the prior study. Nodular areas of low signal on T 2 in the posterolateral deltoid muscle may represent developing calcifications or areas of hemorrhage. Biceps labral complex: Intact. Labrum: There is a tear at the posterosuperior labrum. Cartilage: No defects. Bone marrow: There are small subcortical cystic changes in the superolateral humeral head. There is no evidence of bone marrow edema along the glenohumeral joint and no evidence of septic arthritis. Joint fluid: No effusion. There is mild fluid superior to the acromioclavicular joint in a subcutaneous location, measuring approximately 1.2 x 6.3 x 1.5 cm. IMPRESSION: Diffuse edema and inflammation scattered throughout the soft tissues of the right shoulder also including the deltoid muscle well as rotator cuff muscles and tendons. These findings have increased since the prior study. This is most consistent with cellulitis and possible myositis. There is degenerative change at the acromioclavicular joint. No abnormalities are seen the glenohumeral joint. There is no evidence of glenohumeral joint septic arthritis. There is no joint effusion. Subcutaneous fluid collection above the acromioclavicular joint is nonspecific measuring 1.2 x 6.3 x 1.5 cm. There is a tear of the posterosuperior labrum. 01/12 L shoulder MRI without contrast: Rotator cuff: There is diffuse edema and high signal in the rotator cuff muscles. Acromioclavicular joint: Unremarkable. Acromion: Type 2 Biceps Tendon: In bicipital groove, no tenosynovitis. Hill Sach's deformity: None. Deltoid muscle: There is diffuse edema and T2 high signal in the deltoid muscle. Biceps labral complex: Intact. Labrum: No tear. Cartilage: No defects. Bone marrow: No abnormal signal. Joint fluid: No effusion. There is moderate complex fluid in the subacromial/subdeltoid bursae. IMPRESSION: Diffuse edema and inflammation of the musculature surrounding the shoulder joint as discussed above including the rotator cuff and deltoid muscles. Findings suggest cellulitis and possible myositis. There is moderate complex fluid in the subacromial/subdeltoid bursae, and infected bursal fluid is not excluded. No abnormal bone marrow signal. No effusion at the glenohumeral joint. 01/12 Ct chest without contrast: The lung veronica demonstrate right lower lobe consolidation with air bronchograms and small to moderate right pleural effusion which have increased from prior examination. Chronic elevation to the right hemidiaphragm is again noted. The aerated bilateral lung veronica demonstrate innumerable round opacities which have relatively rapidly increased as compared through 12/23/2020 most suggestive of septic emboli and/or multifocal pneumonia. Findings less likely suggest metastatic disease which cannot definitively be excluded. Associated reactive mediastinal and hilar adenopathy noted. Tracheobronchial tree is relatively patent. Stable cardiomegaly and atherosclerotic changes to the thoracic aorta and coronary arteries. No pericardial effusion. Limited upper abdomen demonstrates normal bilateral adrenal glands. IMPRESSION: 1. Chronic elevation to the right hemidiaphragm and to the significant opacity on recent x-rays. However, there is new right lower lobe consolidation with air bronchograms and small to moderate right pleural effusion which appear increased from 12/30/2020. 2. Scattered bilateral rounded opacities are again noted which have relatively rapidly increased as compared with 12/23/2020 and are most suggestive of septic emboli/multifocal pneumonia. Differential diagnosis less likely includes metastatic disease. 01/22 Shoulder XR: There has been resection of the distal end of the right clavicle. The osseous structures of the right shoulder are otherwise unremarkable. On the left there is no acute fracture or dislocation. Two punctate calcific densities are seen along the superolateral aspect of the left humeral head. IMPRESSION: Resection of distal end right clavicle. 01/25: RUE venous doppler US: The internal jugular, axillary, brachial, and basilic veins are anechoic and compressible in the right upper extremity. Color flow imaging is homogeneous. Spectral Doppler interrogation is unremarkable. There is however, nonocclusive thrombus visible in the right cephalic vein in the mid and distal cephalic vein segment consistent with superficial right upper extremity vein thrombosis.. Study is otherwise unremarkable. IMPRESSION: There is nonocclusive thrombus in the right cephalic vein. Otherwise the right upper extremity veins are anechoic, compressible and patent.. PROGNOSIS: Good ACTIVITY: As tolerated DIET: consistent carb DISCHARGE PLAN: Home with plan for completion of 6 weeks of antibiotics with dalvance, and with outpatient ID, urology, orthopedics and PCP follow up. DISPOSITION: Home with services DISCHARGE INSTRUCTIONS: Dalvance with antibiotics ending February 08 per ID ITEMS TO FOLLOWUP ON ON OUTPATIENT: Disseminated MSSA infection treatment Diabetes Urology follow up ID follow up PCP follow up Orthopedics follow up DISCHARGE CONDITION: Stable TIME SPENT ON DISCHARGE: 78 minutes. Vital Signs/I&Os Vital Signs Date Time Temp Pulse Resp B/P (MAP) Pulse Ox O2 Delivery O2 Flow Rate FiO2 01/31/21 06:04 166/87 01/31/21 06:00 98.2 82 18 91 Room Air I&O- Last 24 Hours up to 6 AM 01/31/21 06:00 Intake Total 1840 ml Output Total 3400 ml Balance -1560 ml Laboratory Data Labs 24H Laboratory Tests 2 01/30/21 12:07: Bedside Glucose (Misc Panel) 119H 01/30/21 17:10: Bedside Glucose (Misc Panel) 111H 01/30/21 21:22: Bedside Glucose (Misc Panel) 207H 01/31/21 06:12: Immature Granulocyte % (Auto) 0.4, Neutrophils (%) (Auto) 64.3, Lymphocytes (%) (Auto) 19.9L, Monocytes (%) (Auto) 10.3H, Eosinophils (%) (Auto) 4.3H, Basophils (%) (Auto) 0.8, Neutrophils # (Auto) 5.9, Lymphocytes # (Auto) 1.8, Monocytes # (Auto) 1.0H, Eosinophils # (Auto) 0.4, Basophils # (Auto) 0.1, Nucleated Red Blood Cells % (auto) 0.0, Anion Gap 4L, Glomerular Filtration Rate > 60.0, Calcium Level 8.2L CBC/BMP Laboratory Tests 01/31/21 06:12 FSBS Laboratory Tests Test 01/30/21 12:07 01/30/21 17:10 01/30/21 21:22 Range/Units Bedside Glucose (Misc Panel) 119 111 207 70-105 MG/DL Microbiology Microbiology 01/24/21 Gram Stain - Final, Complete 01/24/21 Body Fluid Culture - Final, Complete 01/21/21 Respiratory Virus Panel (PCR) (CHIDI) - Final, Complete 01/21/21 Gram Stain - Final, Complete 01/21/21 Wound Culture - Final, Complete 01/21/21 Anaerobic Culture - Final, Complete 01/21/21 Gram Stain - Final, Complete 01/21/21 Wound Culture - Final, Complete 01/21/21 Gram Stain - Final, Complete 01/21/21 Wound Culture - Final, Complete 01/21/21 Anaerobic Culture - Final, Complete 01/21/21 Gram Stain - Final, Complete 01/21/21 Wound Culture - Final, Complete 01/21/21 Anaerobic Culture - Final, Complete 01/21/21 Gram Stain - Final, Complete 01/21/21 Wound Culture - Final, Complete 01/21/21 Anaerobic Culture - Final, Complete 01/21/21 Anaerobic Culture - Final, Complete Discharge Medications Scheduled Amlodipine Besylate (Amlodipine Besylate) 10 Mg Tablet, 10 MG PO DAILY Apixaban (Eliquis) 5 Mg Tablet, 5 MG PO ASDIRECTED 10 mg twice daily for 3d, then 5mg twice daily thereafter. Aspirin (Aspirin EC) 81 Mg Tablet.dr, 81 MG PO DAILY Atorvastatin Calcium (Atorvastatin Calcium) 80 Mg Tablet, 80 MG PO DAILY, (Reported) Clopidogrel Bisulfate (Clopidogrel) 75 Mg Tablet, 75 MG PO DAILY, (Reported) Gabapentin (Gabapentin) 300 Mg Capsule, 300 MG PO BID Hydralazine HCl (Hydralazine HCl) 25 Mg Tablet, 25 MG PO Q6H Insulin Glargine,Hum.rec.anlog (Semglee) 100 Unit/Ml Vial, 35 UNIT SQ BID Insulin Lispro (Admelog) 100 Unit/1 Ml Vial, 100 UNIT SC 1HACHS Lisinopril (Lisinopril) 10 Mg Tablet, 20 MG PO DAILY Metoprolol Tartrate (Metoprolol Tartrate) 25 Mg Tablet, 50 MG PO BID Pantoprazole Sodium (Pantoprazole Sodium) 40 Mg Tablet.dr, 40 MG PO DAILY Saccharomyces Boulardii (Probiotic) 250 Mg Capsule, 1 CAP PO BID Sennosides/Docusate Sodium (Senna Plus Tablet) 1 Each Tablet, 2 TAB PO BID Tamsulosin HCl (Flomax) 0.4 Mg Capsule, 0.4 MG PO DAILY Allergies Coded Allergies: No Known Drug Allergies (Verified Allergy, Unknown, 07/10/20) DION ARIAS MD January 31, 2021 10:05
[2021-01-31 13:11] VITALS: BP 173/85
--- NOTE | 2021-02-03 13:07 | IPN ---
INFECTIOUS DISEASE PROGRESS NOTE DATE: 01/10/2021 SUBJECTIVE: Bernardo complains of left shoulder pain, but otherwise is doing well. He is off oxygen. He has no shortness of breath. No nausea, vomiting or diarrhea. PHYSICAL EXAMINATION: VITALS: Temperature 98.1, pulse 80, respirations 19, blood pressure 170/85, O2 sat 91% on room air. HEART: Normal S1, S2. No murmurs appreciated. LUNGS: Diminished breath sounds at the bases, clear. No wheezes, rales or rhonchi. ABDOMEN: Soft, nontender, non-distended. Bowel sounds are present. EXTREMITIES: No cyanosis, clubbing or edema. SKIN: Vitiligo diffusely. Right shoulder limited range of motion, in a sling, has multiple small incisions from arthroscopic surgery and I and D. Left shoulder limited range of motion, abduction is only to 20 degrees. He has pain at 90 degrees with passive range of motion. He does not move his shoulder actively passed 20 degrees. Elbow normal range of motion. LABORATORY DATA: Sodium 137, potassium 4, chloride 106, bicarb 25, BUN 19, creatinine 1.08, glucose 150. Calcium 8.9, magnesium 1.9, bilirubin 0.4. AST 21, ALT 8, alkaline phosphatase 171. CRP 12.6. Total protein 7, albumin 1.2. White count 11.2, hemoglobin 7.7, hematocrit 24.7, platelets 416,000, 68% neutrophils, 17% lymphocytes, 10% monocytes. Right shoulder cultures intraoperatively, six different cultures have been sent and were all negative. IMPRESSION AND PLAN: 1. Staph Aureus sepsis: MSSA on I.V. Cefazolin, primary source was prostatic abscess with bilateral hydronephrosis; status post bilateral stents, multiple septic emboli with cavitary pneumonia and seeding of the right shoulder. Patient is on I.V. Cefazolin 2 grams every 8 hours. Plan to continue with I.V. antibiotics at least four weeks from recent shoulder surgery to treat for septic arthritis and possible osteomyelitis. For now, I am anticipating end of therapy on February 02. 2. Prostatic abscess: Patient has catheter. I discussed the case with Dr. Savage who is covering for urology and she said that she would recommend a trial of voiding. 3. Insulin dependent diabetes: Better controlled. 4. Left shoulder pain with limited range of motion. PLAN: Continue I.V. Cefazolin at least until February 02. If left shoulder range of motion continues to be limited, which is the case, need to obtain imaging of the left shoulder to make sure he does not seed his left shoulder as well. Trial of voiding tomorrow and remove the catheter. Use bladder ultrasound to check for post void residual.
== END 2021-01-31 16:11 | disposition home health service (06) | DRG 710 ==
LOC: M ED 10:34 → EDBD 10:34 → M ICU 13:28 → ENRESERV 13:44 → M MSPAV 12-30 11:37
PROVIDERS: ADMIT Internal Medicine; ATTEND Internal Medicine
PROC: 0T768DZ Dilation of Right Ureter with Intraluminal Device, Via Natural or Artificial Opening Endoscopic (ICD-10-PCS; 2020-12-25)
PROC: 0VT08ZZ Resection of Prostate, Via Natural or Artificial Opening Endoscopic (ICD-10-PCS; principal; 2020-12-31 16:30)
PROC: 0RBJ0ZZ Excision of Right Shoulder Joint, Open Approach (ICD-10-PCS; 2021-01-05)
PROC: 02HV33Z Insertion of Infusion Device into Superior Vena Cava, Percutaneous Approach (ICD-10-PCS; 2021-01-07)
PROC: 0RBJ4ZZ Excision of Right Shoulder Joint, Percutaneous Endoscopic Approach (ICD-10-PCS; 2021-01-21)
PROC: 0W993ZZ Drainage of Right Pleural Cavity, Percutaneous Approach (ICD-10-PCS; 2021-01-24)
DX: A41.02 Sepsis due to Methicillin resistant Staphylococcus aureus (principal); L03.116 Cellulitis of left lower limb; L97.929 Non-pressure chronic ulcer of unspecified part of left lower leg with unspecified severity; N30.30 Trigonitis without hematuria; E87.0 Hyperosmolality and hypernatremia; N41.2 Abscess of prostate; N13.1 Hydronephrosis with ureteral stricture, not elsewhere classified; L02.413 Cutaneous abscess of right upper limb; I24.8 Other forms of acute ischemic heart disease; K21.9 Gastro-esophageal reflux disease without esophagitis; L97.329 Non-pressure chronic ulcer of left ankle with unspecified severity; I82.611 Acute embolism and thrombosis of superficial veins of right upper extremity; I26.90 Septic pulmonary embolism without acute cor pulmonale; J18.9 Pneumonia, unspecified organism; M00.011 Staphylococcal arthritis, right shoulder; E11.10 Type 2 diabetes mellitus with ketoacidosis without coma; N17.9 Acute kidney failure, unspecified; E78.5 Hyperlipidemia, unspecified; I25.10 Atherosclerotic heart disease of native coronary artery without angina pectoris; Z95.1 Presence of aortocoronary bypass graft; Z79.899 Other long term (current) drug therapy; Z79.82 Long term (current) use of aspirin; R00.0 Tachycardia, unspecified; N39.0 Urinary tract infection, site not specified; R91.8 Other nonspecific abnormal finding of lung field; N10 Acute pyelonephritis; Z79.4 Long term (current) use of insulin; Z91.14 Patient's other noncompliance with medication regimen; M71.112 Other infective bursitis, left shoulder

== ENCOUNTER → 2021-02-09 | Outpatient (REF) | payer OTHER ==
[~2021-02-09] MED LIST changes: +ADME100I SC; +AMLO1TAB25 PO; +ASPI-551 PO; +CEFA2SOL IV; +DALV1SOL IV; +ELIQ5TAB PO; +FLOM0.4C39 PO; +GABA-282 PO; +HYDR-3910 PO; +HYDR25TA PO; +INSU100V8 SC; +INSU100V8 SQ; +INSUDET SC; +INSUHUMDS SC; +METO1TAB87 PO; +PANT40TA29 PO; +PERCOCET PO; +PROB250C PO; +RISATAB3 PO; +SENN-52 PO
[2021-02-09 13:39] LABS: HEMATOCRIT 30.9 % (42.0-52.0); HEMOGLOBIN 9.3 g/dl (13.5-17.5); MEAN CORPUSCULAR HEMOGLOBIN 27.4 pg (27.0-33.0); MEAN CORPUSCULAR HGB CONC 30.1 g/dl (32.0-36.5); MEAN CORPUSCULAR VOLUME 90.9 fl (80.0-96.0); PLATELET COUNT, AUTOMATED 347 10^3/uL (150-450); WHITE BLOOD COUNT 9.4 10^3/uL (4.0-10.0)
[2021-02-09 14:03] LABS: ERYTHROCYTE SEDIMENTATION RATE 98 mm/hr (0-15)
[2021-02-09 14:16] LABS: ALBUMIN 2.4 GM/DL (3.2-5.2); ALT/SGPT 12 U/L (12-78); BILIRUBIN,TOTAL 0.3 MG/DL (0.2-1.0); BLOOD UREA NITROGEN 23 MG/DL (7-18); C REACTIVE PROTEIN QUANTITATIV 3.81 MG/DL (0.00-0.30); CALCIUM LEVEL 8.3 MG/DL (8.5-10.1); CARBON DIOXIDE LEVEL 27 MEQ/L (21-32); CHLORIDE LEVEL 109 MEQ/L (98-107); CHOLESTEROL LEVEL 128 MG/DL (<200); CHOLESTEROL RISK RATIO 3.282 (<5); CREATININE FOR GFR 1.35 MG/DL (0.70-1.30); GLOMERULAR FILTRATION RATE > 60.0 (>60); GLUCOSE, FASTING 105 MG/DL (70-100); HDL CHOLESTEROL 39 MG/DL (>40); LDL CHOLESTEROL 70 MG/DL (<100); NON-HDL-C 89 MG/DL; SODIUM LEVEL 141 MEQ/L (136-145); TOTAL PROTEIN 7.7 GM/DL (6.4-8.2); TRIGLYCERIDES LEVEL 97 MG/DL (<150)
== END ==
LOC: M SFHCPLAZ 11:15
PROVIDERS: ATTEND Family Medicine
DX: Z09 Encounter for follow-up examination after completed treatment for conditions other than malignant neoplasm (principal); Z86.79 Personal history of other diseases of the circulatory system; B95.61 Methicillin susceptible Staphylococcus aureus infection as the cause of diseases classified elsewhere; E11.42 Type 2 diabetes mellitus with diabetic polyneuropathy

== ENCOUNTER 2021-02-11 00:36 | Observation (INO) | payer OTHER ==
[~2021-02-11] VITALS: Ht 182.9 cm; Wt 101.8 kg
[~2021-02-11 00:36] MED LIST changes: -HYDR-3910 PO; -INSU100V8 SC
[2021-02-11 02:09] LABS: BASO # 0.1 10^3/uL (0.0-0.2); BASO % 0.8 % (0.0-1.0); EOS # 0.4 10^3/uL (0.0-0.5); EOS % 3.9 % (0.0-3.0); HEMATOCRIT 31.1 % (42.0-52.0); HEMOGLOBIN 9.5 g/dl (13.5-17.5); LYMPH # 2.1 10^3/uL (1.5-5.0); LYMPH % 20.1 % (24.0-44.0); MEAN CORPUSCULAR HEMOGLOBIN 27.1 pg (27.0-33.0); MEAN CORPUSCULAR HGB CONC 30.5 g/dl (32.0-36.5); MEAN CORPUSCULAR VOLUME 88.9 fl (80.0-96.0); MONO # 1.2 10^3/uL (0.0-0.8); MONO % 11.3 % (2.0-8.0); NEUTROPHILS # 6.7 10^3/uL (1.5-8.5); NEUTROPHILS % 63.6 % (36.0-66.0); PLATELET COUNT, AUTOMATED 335 10^3/uL (150-450); WHITE BLOOD COUNT 10.5 10^3/uL (4.0-10.0)
[2021-02-11 02:16] LABS: INR 1.21; PROTHROMBIN TIME 15.6 SECONDS (12.5-14.3)
[2021-02-11 02:17] LABS: PARTIAL THROMBOPLASTIN TIME 33.6 SECONDS (24.2-38.5)
[2021-02-11 02:47] LABS: ALBUMIN 2.5 GM/DL (3.2-5.2); ALT/SGPT 10 U/L (12-78); BILIRUBIN,DIRECT < 0.1 MG/DL (0.0-0.2); BILIRUBIN,TOTAL 0.1 MG/DL (0.2-1.0); BLOOD UREA NITROGEN 32 MG/DL (7-18); CALCIUM LEVEL 8.5 MG/DL (8.5-10.1); CARBON DIOXIDE LEVEL 24 MEQ/L (21-32); CHLORIDE LEVEL 109 MEQ/L (98-107); CK-MB VALUE MASS 1.4 NG/ML (<3.6); CPK CREATINE PHOSPHOKINASE 108 U/L (39-308); CREATININE FOR GFR 1.41 MG/DL (0.70-1.30); GLOMERULAR FILTRATION RATE 57.1 (>60); GLUCOSE, FASTING 173 MG/DL (70-100); LIPASE 300 U/L (73-393); POTASSIUM SERUM 4.3 MEQ/L (3.5-5.1); SODIUM LEVEL 141 MEQ/L (136-145); TOTAL PROTEIN 7.9 GM/DL (6.4-8.2); TROPONIN I < 0.02 NG/ML (< 0.10)
[2021-02-11] MEDS ORDERED: ISOVUE-370 76% 100ML VIAL As Ordered ONE (03:43)
[2021-02-11 05:21] LABS: RSV AMPLIFICATION NEGATIVE (NEGATIVE)
--- NOTE | 2021-02-11 05:22 | REPVR ---
PROCEDURE INFORMATION: Exam: CT Abdomen And Pelvis With Contrast Exam date and time: 02/11/2021 3:59 AM Age: 50 years old Clinical indication: Other: Rectal bleed; Additional info: HX of prostate abscess, new rectal bleeding TECHNIQUE: Imaging protocol: Computed tomography of the abdomen and pelvis with contrast. Radiation optimization: All CT scans at this facility use at least one of these dose optimization techniques: automated exposure control; mA and/or kV adjustment per patient size (includes targeted exams where dose is matched to clinical indication); or iterative reconstruction. Contrast material: ISOVUE 370; Contrast volume: 100 ml; Contrast route: INTRAVENOUS (IV); COMPARISON: CT ABD/PEL W/IV ORAL CONTRAS 12/30/2020 6:15 PM FINDINGS: Lungs: There is a 2.1 x 1.3 cm left lung base irregular nodule. There is focal atelectasis, scarring or nodule in the lingula measuring 2.1 x 1.9 cm on axial image 15. Linear atelectatic changes seen in the left lower lobe. Small irregular opacities seen in the right middle lobe. Pleural spaces: There is partially imaged small right-sided pleural effusion with overlying atelectasis versus infiltrates. Liver: Normal. No mass. Gallbladder and bile ducts: There is tiny stone in the gallbladder dome best seen on coronal image 42 series 202. Pancreas: Normal. No ductal dilation. Spleen: Normal. No splenomegaly. Adrenal glands: Normal. No mass. Kidneys and ureters: Bilateral double-J ureteral stents are seen with their proximal end at the UPJ and distal end in the urinary bladder. There is fullness in the renal pelvises but without rudolph hydronephrosis. The right kidney is atrophic. There is mild renal cortical heterogeneity with perinephric stranding. Stomach and bowel: There is overall haziness in the pelvis around the bladder, prostate is and rectum. There is moderate to large diffuse colonic stool burden. Appendix: No evidence of appendicitis. Intraperitoneal space: Unremarkable. No free air. No significant fluid collection. Vasculature: There is severe coronary vascular calcifications. Lymph nodes: There are shotty small retroperitoneal lymph nodes likely reactive. There is suggestion of small bowel wall thickening with shotty mesenteric lymph nodes. Urinary bladder: There is suggestion of urinary bladder wall thickening with surrounding haziness. Reproductive: Unremarkable as visualized. Bones/joints: There is L3-L4 through L5-S1 posterior disc osteophyte complex formation resulting in spinal stenosis. Soft tissues: Unremarkable. IMPRESSION: 1. Bilateral double-J ureteral stents in good position with no appreciable hydronephrosis. 2. Nonspecific mildly heterogeneous renal cortices with mild perinephric haziness coupled with bladder wall thickening and surrounding haziness. Underlying cystitis and or pyelonephritis cannot be excluded. 3. No CT evidence of prostate abscess. 4. Stranding and edema in the deep pelvis around the prostate, urinary bladder and rectum which could be secondary to prostatitis, cystitis or proctitis. 5. No intraluminal extravasation of contrast seen in the bowel loops to suggest active bleeding. 6. CT findings raising the possibility of enteritis. 7. Tiny gallstone with no CT evidence of cholecystitis. 8. Small right-sided pleural effusion with overlying atelectasis versus infiltrates. 9. Patchy small opacities/nodules the largest is in the left lung base measuring 2.1 x 1.3 cm less prominent than the prior exam of December 30 possibly inflammatory or infectious however follow-up to resolution is recommended as underlying neoplastic etiology cannot be excluded. Electronically signed by: Benny Zavala On 02/11/2021 05:21:30 AM
[2021-02-11] MEDS ORDERED: GABA-282 PO (05:58)
[2021-02-11] MEDS ORDERED: RISATAB3 PO (05:58)
[2021-02-11] MEDS ORDERED: ELIQ5TAB PO (05:58)
[2021-02-11] MEDS ORDERED: METO1TAB87 PO (05:58)
[2021-02-11] MEDS ORDERED: HYDR-3910 PO (05:58)
[2021-02-11] MEDS ORDERED: AMLO1TAB25 PO (05:58)
[2021-02-11] MEDS ORDERED: FLOM0.4C39 PO (05:58)
[2021-02-11] MEDS ORDERED: INSU100V8 SC (05:58)
[2021-02-11] MEDS ORDERED: PANT40TA29 PO (05:58)
[2021-02-11] MEDS ORDERED: LISI10TA22 PO (05:58)
[2021-02-11] MEDS ORDERED: DEXTROSE 50% 50 ML SYRINGE IV PRN (06:00)
[2021-02-11] MEDS ORDERED: GLUCOSE 4GM CHEW TABLET PO PRN (06:00)
[2021-02-11] MEDS ORDERED: GLUCAGON INJ 1MG VIAL SC PRN (06:00)
--- NOTE | 2021-02-11 06:04 | HPEPDOC ---
[facility] Medical History & Physical Date of Admission Feb 11, 2021 Date of Service: Feb 11, 2021 History and Physical CHIEF COMPLAINT: Bleeding per rectum HISTORY OF PRESENT ILLNESS: 50-year-old male presents to the hospital because of one episode of blood in his stools he noticed bright red blood with some clots which prompted him to come to the hospital. She brought a bag with his boxer briefs with his bloody stools to demonstrate when he noticed. I confirmed the presence of what appears to be clots and dried blood. This happened only one time and has not reoccurred since. He says he otherwise feels well he has no other complaints and denies bleeding elsewhere other than known intermittent bleeding in his urine he has bilateral stents and is anticipated to follow-up with urology in a few days. He is on eliquis which was started last month he had a very swollen right arm and was noted to have a thrombus on ultrasound although more superficial. It still resulted in quite significant swelling. Since leaving the hospital his swelling has completely resolved in the right upper extremity. Patient will be admitted to medical service for observation to trend his hemoglobin and monitor for any further bleeding and determine whether he will need an inpatient or outpatient colonoscopy. In the meantime eliquis will be held due to his GI bleed. Of note, patient recently had an extensive hospital stay for ~ 2 months, admitted December 23 ->Jan 31 2021, initially presented with DKA, then found to have sepsis from septic shoulder joint thought to have seeded from prostate abscess was also found to have a blood clot in the right upper extremity and was started on eliquis. PAST MEDICAL/SURGICAL HISTORY: IDDM2, hx of DKA RUE thrombus on eliquis 01/2021 hx Severe sepsis with MSSA bacteremia from prostate abscess Ulceration of left lower extremity CAD status post CABG Hyperlipidemia Hypertension GERD Bilateral hydronephrosis s/p ureteral stents, appointment February 15 with urology possibly to remove stents Right shoulder septic acromioclavicular joint, posterior proximal arm abscess and infected subacromial space and left septic subacromial bursitis s/p washout SOCIAL HISTORY: Denies alcohol use Denies tobacco use Denies illicit drug use FAMILY HISTORY: Reviewed and none contributory to this admission ALLERGIES: Please see below. REVIEW OF SYSTEMS: 10 point review of systems complete all negative otherwise stated in HPI HOME MEDICATIONS: Please see below. PHYSICAL EXAMINATION: Constitutional: Awake and alert, in no apparent distress ENT: Sclera are clear. Mucosa is moist. Respiratory: Lungs CTA bilaterally. No respiratory distress. N Cardiovascular: RRR S1 and S2 are normal Gastrointestinal: Abdomen is soft, non distended, non tender, BS present. Musculoskeletal: No lower extremity edema. b/l healing shoulder incision scars. No RUE swelling. Neurologic: No focal neurological deficit. Mental Status: A&O x3, normal affect Skin: Vitiligo. Stage II ulcer on the left lateral supramalleolar region LABORATORY DATA: See below. IMAGING: See chart MICROBIOLOGY: Please see below. ASSESSMENT Lower GI bleed in the setting of eliquis use History of Right upper extremity venous thrombus on eliquis hx Bilateral hydronephrosis and hydroureter with b/l stents still in place hx prostate abscess with sepsis and MSSA bacteremia and seeding to bilateral shoulders CAD s/p CABG (2014) IDDM2 HTN PLAN Admit to Medical bed for observation for close monitoring of further GI b leeding. Trend HH every 6 hours. IV Protonix twice a day. Discussed with GI need for inpatient versus outpatient colonoscopy based on outcome of observation if he bleeds further or if his hemoglobin drops. Hemoglobin appears improved from time of discharge. Morning team can discuss with hematology need for continued anti-coagulation for his right upper extremity and the possibility of discontinuing the eliquis given that his thrombus was more superficial should repeat duplex ultrasound showed no DVT. Hold eliquis for now in the setting of GI bleed. I will continue his plavix unless he bleeds again might have to also be held. Continue medications for chronic medical problems. Follow up with urology February 15 for the bilateral stents. DVT prophylaxis with SCDs only given lower GI bleed A Yousef Hospitalist Vital Signs Vital Signs Date Time Temp Pulse Resp B/P (MAP) Pulse Ox O2 Delivery O2 Flow Rate FiO2 02/11/21 04:36 92 20 93 Room Air 02/11/21 04:30 159/94 (115) 02/11/21 00:39 97.7 Laboratory Data Labs 24H Laboratory Tests 2 02/11/21 01:44: Immature Granulocyte % (Auto) 0.3, Neutrophils (%) (Auto) 63.6, Lymphocytes (%) (Auto) 20.1L, Monocytes (%) (Auto) 11.3H, Eosinophils (%) (Auto) 3.9H, Basophils (%) (Auto) 0.8, Neutrophils # (Auto) 6.7, Lymphocytes # (Auto) 2.1, Monocytes # (Auto) 1.2H, Eosinophils # (Auto) 0.4, Basophils # (Auto) 0.1, Nucleated Red Blood Cells % (auto) 0.0, Prothrombin Time 15.6H, Prothromb Time International Ratio 1.21, Activated Partial Thromboplast Time 33.6, Anion Gap 8, Glomerular Filtration Rate 57.1L, Calcium Level 8.5, Total Bilirubin 0.1#L, Direct Bilirubin < 0.1, Aspartate Amino Transf (AST/SGOT) 19, Alanine Aminotransferase (ALT/SGPT) 10L, Alkaline Phosphatase 81, Total Creatine Kinase 108, Creatine Kinase MB 1.4, Creatine Kinase MB Relative Index 1.30, Troponin I < 0.02, Total Protein 7.9, Albumin 2.5L, Albumin/Globulin Ratio 0.5, Lipase 300 02/11/21 04:10: Coronavirus (COVID-19)(PCR) NEGATIVE, Influenza Type A (RT-PCR) NEGATIVE, Influenza Type B (RT-PCR) NEGATIVE, Respiratory Syncytial Virus (PCR) NEGATIVE CBC/BMP Laboratory Tests 02/11/21 01:44 Home Medications Scheduled Amlodipine Besylate (Amlodipine Besylate) 10 Mg Tablet, 10 MG PO DAILY Apixaban (Eliquis) 5 Mg Tablet, 5 MG PO BID Atorvastatin Calcium (Atorvastatin Calcium) 80 Mg Tablet, 80 MG PO DAILY Clopidogrel Bisulfate (Clopidogrel) 75 Mg Tablet, 75 MG PO DAILY Gabapentin (Gabapentin) 300 Mg Capsule, 300 MG PO BID Hydralazine HCl (Hydralazine HCl) 25 Mg Tablet, 25 MG PO Q6H Insulin Glargine,Hum.rec.anlog (Semglee) 100 Unit/Ml Vial, 35 UNIT SC BID L.acidoph/L.bulg/B.bif/S.therm (Ely-Bid Caplet) 1 Each Tablet, 2 TAB PO BID Lisinopril (Lisinopril) 10 Mg Tablet, 20 MG PO DAILY Metoprolol Tartrate (Metoprolol Tartrate) 25 Mg Tablet, 50 MG PO BID Pantoprazole Sodium (Pantoprazole Sodium) 40 Mg Tablet.dr, 40 MG PO DAILY Tamsulosin HCl (Flomax) 0.4 Mg Capsule, 0.4 MG PO DAILY Allergies Coded Allergies: No Known Drug Allergies (Verified Allergy, Unknown, 07/10/20) A-FIB/CHADSVASC A-FIB History Current/History of A-Fib/PAF?: No ROSANNESEBANG Lindquist MD Feb 11, 2021 06:04
--- NOTE | 2021-02-11 07:01 | REPVR ---
PROCEDURE INFORMATION: Exam: US Duplex Right Upper Extremity Veins, Limited Exam date and time: 02/11/2021 6:54 AM Age: 50 years old Clinical indication: Condition or disease; Embolism or thrombosis; Upper extremity, right; Additional info: Check for dvt TECHNIQUE: Imaging protocol: Real-time Duplex ultrasound of the Right Upper Extremity with 2-D vicente scale, color Doppler flow and spectral waveform analysis with image documentation. Limited exam focused on the right upper extremity veins. COMPARISON: US DUPLEX EXT UPPER VEINS UNILATE 01/25/2021 7:32 PM FINDINGS: Right deep veins: Unremarkable. Axillary and brachial veins are patent throughout without thrombus. Normal Doppler waveforms. Normal compressibility and/or augmentation response. Visualized internal jugular and subclavian veins are patent. Right superficial veins: There is heterogeneous filling defect expanding and occluding the distal right cephalic vein in the upper arm. The proximal and mid cephalic vein in the upper arm are patent and fully compressible. Soft tissues: Unremarkable. IMPRESSION: Superficial venous thrombosis in the distal upper arm cephalic vein. Proximal and mid upper arm cephalic veins are patent. Electronically signed by: Benny Zavala On 02/11/2021 07:00:57 AM
[2021-02-11 07:08] LABS: HEMATOCRIT 29.7 % (42.0-52.0); HEMOGLOBIN 9.4 g/dl (13.5-17.5)
[2021-02-11] MEDS ORDERED: PANTOPRAZOLE 40MG TAB (PROTONIX) PO SCH (09:00)
[2021-02-11] MEDS: **hydrALAZINE HCL** 25 MG TAB PO SCH ×3 (09:17→17:06)
[2021-02-11 09:21] LABS: BLOOD UREA NITROGEN 30 MG/DL (7-18); CALCIUM LEVEL 8.7 MG/DL (8.5-10.1); CARBON DIOXIDE LEVEL 27 MEQ/L (21-32); CHLORIDE LEVEL 108 MEQ/L (98-107); CREATININE FOR GFR 1.29 MG/DL (0.70-1.30); GLOMERULAR FILTRATION RATE > 60.0 (>60); GLUCOSE, FASTING 123 MG/DL (70-100); POTASSIUM SERUM 3.8 MEQ/L (3.5-5.1); SODIUM LEVEL 141 MEQ/L (136-145)
--- NOTE | 2021-02-11 09:30 | ECGEPIP ---
[facility] - ED Test Date: 2021-02-11 Pat Name: MAAME MARTINEZ Department: Room: [place] [address] Gender: Male Data Security Analyst: seth : [id number] Requested By: JUANA Aggarwal Order Number: [id number] Reading MD: Nathaniel Shearer Measurements Intervals [place] Rate: 93 P: 29 [place]: 148 QRS: 17 QRSD: 86 T: 90 QT: 386 QTc: 479 Interpretive Statements Normal sinus rhythm Minimal voltage criteria for LVH, may be normal variant ( [place] product ) BORDERLINE ST ELEVATION, INFERIOR LEADS, consider ischemia Electronically Signed on 02-11-2021 9:29:59 EDT by Nathaniel Shearer
[2021-02-11] MEDS: HumaLOG INSULIN (NovoLOG) PER UNIT SC SCH ×3 (10:44→17:05)
[2021-02-11 10:49] LABS: MEAN CORPUSCULAR HEMOGLOBIN 27.1 pg (27.0-33.0); MEAN CORPUSCULAR HGB CONC 30.7 g/dl (32.0-36.5); MEAN CORPUSCULAR VOLUME 88.2 fl (80.0-96.0); PLATELET COUNT, AUTOMATED 323 10^3/uL (150-450)
[2021-02-11] MEDS: GABAPENTIN 300 MG CAP PO SCH ×2 (11:16→21:19)
[2021-02-11] MEDS: SUCRALFATE SUSP 1GM/10ML UD PO SCH ×2 (11:16→17:05)
[2021-02-11] MEDS: PANTOPRAZOLE 40MG VIAL (C9113 PER 1) IV SCH ×2 (11:16→17:05)
[2021-02-11] MEDS: METOPROLOL TART 50 MG TAB PO SCH ×2 (11:17→21:21)
[2021-02-11] MEDS: ATORVASTATIN 20 MG TAB PO SCH (11:17)
[2021-02-11] MEDS: CLOPIDOGREL 75 MG TAB PO SCH (11:17)
[2021-02-11] MEDS: TAMSULOSIN 0.4 MG CAP PO SCH (11:17)
[2021-02-11] MEDS: SENOKOT S TAB PO SCH ×2 (11:18→21:19)
[2021-02-11] MEDS: MIRALAX *UNIT DOSE* 17GM PACKET PO SCH (11:25)
[2021-02-11 11:31] VITALS: BP 150/98
[2021-02-11] MEDS: LEVEMIR (INSULIN DETEMIR) 1 UNITS/0.01ML SC SCH ×2 (12:44→21:19)
[2021-02-11 12:59] LABS: HEMATOCRIT 32.4 % (42.0-52.0); HEMOGLOBIN 9.9 g/dl (13.5-17.5)
[2021-02-11 14:00] VITALS: BP 140/85
[2021-02-11 19:10] LABS: HEMATOCRIT 30.1 % (42.0-52.0); HEMOGLOBIN 9.3 g/dl (13.5-17.5)
[2021-02-11] MEDS ORDERED: HumaLOG INSULIN (NovoLOG) PER UNIT SC SCH (21:00)
[2021-02-11 22:00] VITALS: BP 121/75
[2021-02-12] MEDS: SUCRALFATE SUSP 1GM/10ML UD PO SCH ×2 (00:02→05:48)
[2021-02-12 00:52] LABS: HEMATOCRIT 28.7 % (42.0-52.0); HEMOGLOBIN 8.9 g/dl (13.5-17.5)
[2021-02-12] MEDS: **hydrALAZINE HCL** 25 MG TAB PO SCH ×2 (05:44)
[2021-02-12] MEDS: PANTOPRAZOLE 40MG VIAL (C9113 PER 1) IV SCH (05:48)
[2021-02-12 06:00] VITALS: BP 150/75
[2021-02-12 06:54] LABS: BASO # 0.1 10^3/uL (0.0-0.2); BASO % 0.9 % (0.0-1.0); EOS # 0.5 10^3/uL (0.0-0.5); EOS % 5.3 % (0.0-3.0); HEMATOCRIT 29.5 % (42.0-52.0); HEMOGLOBIN 9.1 g/dl (13.5-17.5); LYMPH # 2.4 10^3/uL (1.5-5.0); LYMPH % 26.5 % (24.0-44.0); MEAN CORPUSCULAR HGB CONC 30.8 g/dl (32.0-36.5); MEAN CORPUSCULAR VOLUME 87.5 fl (80.0-96.0); MONO % 11.2 % (2.0-8.0); NEUTROPHILS % 55.9 % (36.0-66.0); PLATELET COUNT, AUTOMATED 317 10^3/uL (150-450); RED BLOOD COUNT 3.37 10^6/uL (4.30-6.10); WHITE BLOOD COUNT 8.9 10^3/uL (4.0-10.0)
[2021-02-12 07:27] LABS: BLOOD UREA NITROGEN 27 MG/DL (7-18); CALCIUM LEVEL 8.4 MG/DL (8.5-10.1); CARBON DIOXIDE LEVEL 27 MEQ/L (21-32); CHLORIDE LEVEL 110 MEQ/L (98-107); CREATININE FOR GFR 1.27 MG/DL (0.70-1.30); GLOMERULAR FILTRATION RATE > 60.0 (>60); GLUCOSE, FASTING 71 MG/DL (70-100); POTASSIUM SERUM 3.7 MEQ/L (3.5-5.1); SODIUM LEVEL 143 MEQ/L (136-145)
[2021-02-12] MEDS: HumaLOG INSULIN (NovoLOG) PER UNIT SC SCH (07:29)
[2021-02-12 08:00] VITALS: BP 124/80
[2021-02-12] MEDS ORDERED: CLOP75TA2 PO (08:13)
[2021-02-12] MEDS ORDERED: SUCR1TA PO (08:13)
[2021-02-12] MEDS ORDERED: COLA100C5 PO (08:13)
[2021-02-12] MEDS ORDERED: LISI10TA22 PO (08:15)
[2021-02-12] MEDS ORDERED: FLOM0.4C39 PO (08:15)
[2021-02-12] MEDS ORDERED: INSU100V8 SC (08:15)
[2021-02-12] MEDS: MIRALAX *UNIT DOSE* 17GM PACKET PO SCH (08:40)
[2021-02-12] MEDS: CLOPIDOGREL 75 MG TAB PO SCH (08:41)
[2021-02-12] MEDS: SENOKOT S TAB PO SCH (08:41)
[2021-02-12] MEDS: LEVEMIR (INSULIN DETEMIR) 1 UNITS/0.01ML SC SCH (08:41)
[2021-02-12] MEDS: ATORVASTATIN 20 MG TAB PO SCH (08:41)
[2021-02-12] MEDS: TAMSULOSIN 0.4 MG CAP PO SCH (08:41)
[2021-02-12 08:42] VITALS: BP 128/86
[2021-02-12] MEDS: METOPROLOL TART 50 MG TAB PO SCH (08:42)
[2021-02-12] MEDS: GABAPENTIN 300 MG CAP PO SCH (08:42)
--- NOTE | 2021-02-12 10:24 | IPNPDOC ---
Subjective Date Seen The patient was seen on 02/12/21. Subjective Chief Complaint/HPI No complaints this morning. Had 2 regular bowel movements yesterday no further bleeding. No abdominal pain. Objective Physical Examination General Exam: Positive: Alert, Cooperative, No Acute Distress Eye Exam: Positive: PERRLA, Conjunctiva & lids normal, EOMI; Negative: Sclera icteric ENT Exam: Positive: Atraumatic, Mucous membr. moist/pink, Pharynx Normal Neck Exam: Positive: Supple; Negative: JVD, thyromegaly Chest Exam: Positive: Clear to auscultation, Normal air movement Heart Exam: Positive: Rate Normal, Regular Rhythm, Normal S1, Normal S2; Negative: Murmurs, Rubs Abdomen Exam: Positive: Normal bowel sounds, Soft; Negative: Tenderness Extremity Exam: Negative: Clubbing, Cyanosis, Edema Assessment /Plan Assessment 50-year-old male with PMH of DM, CAD s/p CABG, HTN, HLD recent prolonged hospitalization from 12/23/20 to 01/31/21 for DKA with MSSA bacteremia from prostatic abscess with septic emboli to lungs, pneumonia with parapneumonic effusion, right shoulder septic arthritis, right arm abscess, left septic subacromial bursitis presents to the hospital because of one episode of blood in his stools he noticed bright red blood with some clots which prompted him to come to the hospital. He says he otherwise feels well he has no other complaints and denies bleeding elsewhere other than known intermittent bleeding in his urine he has bilateral ureteral stents and had TURP recently during the last hospitalization and is anticipated to follow-up with urology in a few days. He is on eliquis which was started last month he had a very swollen right arm and was noted to have a thrombus on ultrasound in the cephalic vein so this is superficial venous thrombosis. Since leaving the hospital his swelling has completely resolved in the right upper extremity. He was admitted for Lower GIB. Gastrointestinal bleeding. HB stable. No further bleeding in hospital CT abdomen pelvis showed haziness in the pelvis around the bladder, prostate is and rectum. There is moderate to large diffuse colonic stool burden. Stranding and edema in the deep pelvis around the prostate, urinary bladder and rectum which could be secondary to prostatitis, cystitis or proctitis. The bleeding may be due to proctitis. However will need colonoscopy. will refer to GI as outpatient for colonoscopy. Chronic Anemia patient had a long 2 month hospitalization with Sepsis and multiple other issues at that time his Hb was ranging inthe 7.5 to 8.5 range. there was no iron, vit b12 or folate deficiency. This likely due to anemia of chronic disease. DM with Neuropathy continue Levemir and lispro. gabapentin. RUE thrombus Superficial venous thrombosis in the distal upper arm cephalic vein. Proximal and mid upper arm cephalic veins are patent will dc Eliquis. MSSA bacteremia from prostate abscess with septic emboli, R shoulder septic arthritis, right arm abscess, left shoulder septic bursitis Finished antibiotics. CAD/ s/p CABG patient used to be on plavix prior to last admission was changed to Aspirin when Eliquis was started Now i am stopping the eliquis so will go back to plavix only. CAD status post CABG continue metoprolol, plavix and statin. Hyperlipidemia statin Hypertension amlodipine, lisinopril dose increased, metoprolol stopped hydralazine. Patient reported that he cannot always remember to take the medicine 4 times a day. GERD pantoprazole Prostatic abscess with obstructive uropathy causing bilateral hydronephrosis. s/p TURP and bilateral ureteral stents, appointment February 15 with urology Ulceration of left lower extremity follow up PMD Dispo: Home today. will need referral to GI for colonoscopy. Plan/VTE VTE Prophylaxis Ordered?: Yes VS, I&O, 24H, Fishbone Vital Signs/I&O Vital Signs Date Time Temp Pulse Resp B/P (MAP) Pulse Ox O2 Delivery O2 Flow Rate FiO2 02/12/21 00:00 141/90 02/11/21 22:00 97.2 88 18 94 Room Air I&O- Last 24 Hours up to 6 AM 02/12/21 07:00 Intake Total 950 ml Output Total 0 ml Balance 950 ml Laboratory Data 24H LABS Laboratory Tests 2 02/11/21 06:55: Nucleated Red Blood Cells % (auto) 0.0, Anion Gap 6L, Glomerular Filtration Rate > 60.0, Calcium Level 8.7 02/11/21 11:31: Bedside Glucose (Misc Panel) 153H 02/11/21 16:45: Bedside Glucose (Misc Panel) 150H 02/11/21 20:20: Bedside Glucose (Misc Panel) 176H CBC/BMP Laboratory Tests 02/11/21 06:55 02/11/21 12:48 02/11/21 18:51 02/12/21 00:48 AIDAN MEYERS MD Feb 12, 2021 06:15
== END 2021-02-12 10:36 | disposition home or self-care (01) ==
LOC: M ED 00:36 → M ED INP 00:37 → ENRESERV 10:50 → M MSPAV 11:26
PROVIDERS: ADMIT Family Medicine; ATTEND Family Medicine
DX: K92.2 Gastrointestinal hemorrhage, unspecified (principal); D64.9 Anemia, unspecified; E11.40 Type 2 diabetes mellitus with diabetic neuropathy, unspecified; Z79.4 Long term (current) use of insulin; Z79.899 Other long term (current) drug therapy; Z79.01 Long term (current) use of anticoagulants; I25.10 Atherosclerotic heart disease of native coronary artery without angina pectoris; Z98.61 Coronary angioplasty status; I10 Essential (primary) hypertension; K21.9 Gastro-esophageal reflux disease without esophagitis
CPT/HCPCS: 36415; 74177; 80048; 80076; 82550; 82553; 83690; 85014; 85018; 85025; 85027; 85610; 85730; 86850; 86900; 86901; 87631; 93005; 93971; 96374; 96376; 99285; C9113; Q9967

== ENCOUNTER 2021-02-14 09:31 | Inpatient (IN) | payer OTHER ==
[~2021-02-14] VITALS: Ht 182.9 cm; Wt 96.4 kg
[~2021-02-14 09:31] MED LIST changes: +COLA100C5 PO; +HYDR-3910 PO; +INSU100V8 SC; +SUCR1TA PO
[2021-02-14 11:45] LABS: HEMATOCRIT 27.4 % (42.0-52.0); HEMOGLOBIN 8.5 g/dl (13.5-17.5); MEAN CORPUSCULAR HEMOGLOBIN 27.5 pg (27.0-33.0); MEAN CORPUSCULAR VOLUME 88.7 fl (80.0-96.0); PLATELET COUNT, AUTOMATED 303 10^3/uL (150-450); RED BLOOD COUNT 3.09 10^6/uL (4.30-6.10)
[2021-02-14 12:15] LABS: CALCIUM LEVEL 8.5 MG/DL (8.5-10.1); CREATININE FOR GFR 1.44 MG/DL (0.70-1.30); GLOMERULAR FILTRATION RATE 55.7 (>60)
[2021-02-14] MEDS ORDERED: LISI10TA22 PO (14:05)
[2021-02-14] MEDS ORDERED: SUCR1TAB56 PO (14:05)
[2021-02-14] MEDS ORDERED: PLAV1TAB2 PO (14:05)
[2021-02-14] MEDS ORDERED: DOCU100C16 PO (14:05)
[2021-02-14] MEDS ORDERED: INSU100I28 SQ (14:05)
[2021-02-14] MEDS ORDERED: FLOM0.4C39 PO (14:05)
--- NOTE | 2021-02-14 14:10 | REP ---
INDICATION: UGI bleed. COMPARISON: Multiple the latest 01/24/2021 TECHNIQUE: Portable FINDINGS: The technique utilized in obtaining the radiograph has magnified the cardiac silhouette and accentuated the interstitial markings. There is mild cardiomegaly suspected but accentuated by technique. Note is again made of previous median sternotomy. The lung parenchymal nodular densities seen on the prior exam which was obtained using PA and lateral technique are still noted but less apparent on today's portable exam. No definite new parenchymal abnormalities have developed. There is no change in the osseous structures. IMPRESSION: No significant change other than technique with findings as described above. <Electronically signed by Ty Mcdaniel > 02/14/21 1229
[2021-02-14] MEDS ORDERED: DEXTROSE 50% 50 ML SYRINGE IV PRN (14:15)
[2021-02-14] MEDS ORDERED: ACETAMINOPHEN TAB 650MG DOSE (2X325MG) PO PRN (14:15)
[2021-02-14] MEDS ORDERED: GLUCOSE 4GM CHEW TABLET PO PRN (14:15)
[2021-02-14] MEDS ORDERED: GLUCAGON INJ 1MG VIAL SC PRN (14:15)
[2021-02-14 14:23] LABS: RSV AMPLIFICATION NEGATIVE (NEGATIVE)
--- NOTE | 2021-02-14 14:29 | HPEPDOC ---
[facility] Medical History & Physical Date of Admission Feb 14, 2021 Date of Service: Feb 14, 2021 History and Physical Chief complaint: Who presented to the emergency room with bleeding per rectum History of present illness: Patient is a 50-year-old male who presented to the emergency room with episodes of blood in his stool. Patient was recently at [facility] from 02/11 to 02/12 for similar presentation. At that point, patient was initially on Eliquis for superficial venous thrombus in the distal upper arm cephalic vein. His Eliquis was discontinued and patients hemoglobin was trended. Patient did not require any transfusions and was subsequently discharged home with Carafate and instructions to follow-up with gastroenterology. Patient reported that when he went home on Sunday he was doing relatively fine until Sunday evening when he began to experience 2-3 episodes of blood per rectum. Patient woke up this morning with another episode of bleeding per rectum that prompted him to come to the emergency room for further evaluation. Upon arrival to emergency room, patient has reported some lightheadedness and dizziness. He denies any chest pain, shortness of breath, palpitations, but does report a chronic dry cough. Patient reports some abdominal discomfort occurring in the upper portion of his abdomen and lower portion both occurring in the center. Patient denies any urinary discomfort. Has not experienced any recent fevers or chills. Patient reports his last meal was this morning. Patient has had a recent prolonged hospital stay from 12/23 to 01/31 for DKA, sepsis 2/2 MSSA bacteremia from prostate abscess, complicated with septic emboli to the right shoulder. Patient had stenting of both his ureters, transurethral resection of prostate abscess and it clean out of his right shoulder. Past Medical History / Past Surgical History: HTN CAD s/p CABG (01/2017); no stents reported RUE Superficial thrombus DLP IDDM2; recent history of DKA Hx of MSSA bacteremia 2/2 prostate abscess; complicated with seeding of R acromioclavicular joint Hx of Right Acromioclavicular joint / posterior proximal arm abscess / infected subacromial space / left septic subacromial bursitis s/p washout Hx of Ulceration of LLE GERD Allergies: See below Medications: See below Family History: - Reviewed and noncontributory Social History: - Denies the use of alcohol, tobacco or illicit drugs - Denies recent travel or sick contacts - Lives with 6 nephews - Occupation; currently not working but previously worked at [employer] Review of Systems: 10 point review of systems complete, all negative otherwise stated in HPI Physical exam: - Vitals: BP [161/101], HR [110], RR [17], Sat [100%RA], Temp [97.1F] - General: Lying in bed, Speaking in full sentences, AAOx3 - HEENT: NC, AT, PERRLA - CVS: Tachycardic,, +S1S2, - Murmurs / rubs / gallops - Lungs: Fair air entry bilaterally, No appreciable wheezing / rales / rhonchi - Abdomen: Soft, Non-distended, mild epigastric tenderness. Mild suprapubic tenderness - Extremities: Trace pitting edema bilaterally, No calf tenderness - Neuro: No focal motor or sensory deficit - Skin: No visible rashes Labs: See below Imaging: CXR 02/14: No significant change other than technique with findings as described above. EKG: See below Assessment and Plan: Rectal bleeding - likely 2/2 GI bleed - likely 2/2 lower, possibly 2/2 upper - Patient was recently admitted from 02/11-02/12 for similar presentation; didnt require transfusions - Patient presented to the ER with similar complaints with bright red bleeding per rectum that started 02/13 evening - BUN elevated suggesting possible upper GI bleed - Hemoglobin slightly below baseline from discharge; will follow trend; H&H [id number] - Will start Protonix / Carafte - Will start clear liquid diet - Patient has been consented for blood transfusions - Consulted Dr. Arnold, general surgery; plan for EGD and colonoscopy on 02/16 Elevated Cr - Cr elevated from baseline of 1.0 -1.2; Cr on admission of 1.4 - Will check urine electrolytes - Will hold Lisinopril / other nephrotoxic medications - Will start IV fluid hydration HTN - BP elevated in the ER at 160s - c/w Amlodipine / Metoprolol CAD s/p CABG (01/2017) - No recent stents reported - c/w Atorvastatin - Will hold Plavix RUE Superficial thrombus DLP - c/w Atorvastatin IDDM2 with Neuropathy - Recent history of DKA - c/w Gabapentin - c/w ISS and reduced dose of Levemir Hx of MSSA bacteremia 2/2 prostate abscess - s/p TURP - Patient has had bilateral hydronephrosis s/p bilateral ureteral stent place ment - Has completed antibiotic course - c/w Tamsulosin - Patient was scheduled to follow-up with urology on 02/15 for stent removal - Will have outpatient follow-up with urology Hx of Right Acromioclavicular joint / posterior proximal arm abscess / infected subacromial space / left septic subacromial bursitis s/p washout Hx of Ulceration of LLE GERD - Will start Protonix / Carafate DVT prophylaxis - Will start TEDs/Sequentials Vital Signs Vital Signs Date Time Temp Pulse Resp B/P (MAP) Pulse Ox O2 Delivery O2 Flow Rate FiO2 02/14/21 11:44 02/14/21 09:31 97.1 110 17 100 Room Air Laboratory Data Labs 24H Laboratory Tests 2 02/14/21 11:37: Nucleated Red Blood Cells % (auto) 0.0, Anion Gap 6L, Glomerular Filtration Rate 55.7L, Calcium Level 8.5 02/14/21 13:24: Coronavirus (COVID-19)(PCR) NEGATIVE, Influenza Type A (RT-PCR) NEGATIVE, Influenza Type B (RT-PCR) NEGATIVE, Respiratory Syncytial Virus (PCR) NEGATIVE 02/14/21 14:19: CBC/BMP Laboratory Tests 02/14/21 11:37 Home Medications Scheduled Amlodipine Besylate (Amlodipine Besylate) 10 Mg Tablet, 10 MG PO DAILY Atorvastatin Calcium (Atorvastatin Calcium) 80 Mg Tablet, 80 MG PO DAILY Clopidogrel Bisulfate (Plavix) 75 Mg Tablet, 75 MG PO DAILY Docusate Sodium (Docusate Sodium) 100 Mg Capsule, 100 MG PO BID Gabapentin (Gabapentin) 300 Mg Capsule, 300 MG PO BID Insulin Glargine,Hum.rec.anlog (Semglee Pen) 100 Unit/Ml (3 Ml) Insuln.pen, 25 UNIT SQ BID L.acidoph/L.bulg/B.bif/S.therm (Ely-Bid Caplet) 1 Each Tablet, 2 TAB PO BID Lisinopril (Lisinopril) 10 Mg Tablet, 20 MG PO QHS Metoprolol Tartrate (Metoprolol Tartrate) 25 Mg Tablet, 50 MG PO BID Pantoprazole Sodium (Pantoprazole Sodium) 40 Mg Tablet.dr, 40 MG PO DAILY Sucralfate (Sucralfate) 1 Gm Tablet, 1 GM PO AC Tamsulosin HCl (Flomax) 0.4 Mg Capsule, 0.4 MG PO QHS Allergies Coded Allergies: No Known Drug Allergies (Verified Allergy, Unknown, 07/10/20) MONIKA SARGENT MD Feb 14, 2021 14:29
[2021-02-14] MEDS: PANTOPRAZOLE 40MG VIAL (C9113 PER 1) IV SCH (15:36)
[2021-02-14] MEDS: NS 1,000 ML IV SCH (15:39)
[2021-02-14 17:19] LABS: HEMOGLOBIN 8.4 g/dl (13.5-17.5)
[2021-02-14 17:55] VITALS: BP 180/107
[2021-02-14] MEDS: HumaLOG INSULIN (NovoLOG) PER UNIT SC SCH ×2 (18:30→20:26)
[2021-02-14] MEDS ORDERED: amLODIPine 5 MG TAB PO ONE (18:40)
[2021-02-14] MEDS: SUCRALFATE SUSP 1GM/10ML UD PO SCH ×2 (19:00→21:09)
[2021-02-14 19:24] LABS: CREATININE,RANDOM URINE 69.6 MG/DL
[2021-02-14 20:00] VITALS: BP 172/86
[2021-02-14] MEDS: LEVEMIR (INSULIN DETEMIR) 1 UNITS/0.01ML SC SCH (21:08)
[2021-02-14] MEDS: TAMSULOSIN 0.4 MG CAP PO SCH (21:09)
[2021-02-14] MEDS: GABAPENTIN 300 MG CAP PO SCH (21:09)
[2021-02-14] MEDS: LACTOBACILLUS ACIDOPHILUS CAP (BACID) PO SCH (21:09)
[2021-02-14] MEDS: METOPROLOL TART 25 MG TABLET PO SCH (21:10)
[2021-02-15] VITALS (14 sets, daily range): BP systolic 128–177; BP diastolic 68–94
[2021-02-15 00:23] LABS: HEMATOCRIT 24.2 % (42.0-52.0); HEMOGLOBIN 7.5 g/dl (13.5-17.5)
[2021-02-15] MEDS: NS 1,000 ML IV SCH (02:32)
[2021-02-15] MEDS: PANTOPRAZOLE 40MG VIAL (C9113 PER 1) IV SCH ×2 (02:41→16:48)
--- NOTE | 2021-02-15 05:31 | ECGEPIP ---
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
[2021-02-15 05:52] LABS: BASO # 0.1 10^3/uL (0.0-0.2); BASO % 0.6 % (0.0-1.0); EOS # 0.4 10^3/uL (0.0-0.5); HEMATOCRIT 24.6 % (42.0-52.0); HEMOGLOBIN 7.6 g/dl (13.5-17.5); LYMPH # 2.2 10^3/uL (1.5-5.0); LYMPH % 25.6 % (24.0-44.0); MEAN CORPUSCULAR HEMOGLOBIN 27.1 pg (27.0-33.0); MEAN CORPUSCULAR HGB CONC 30.9 g/dl (32.0-36.5); MEAN CORPUSCULAR VOLUME 87.9 fl (80.0-96.0); MONO # 0.8 10^3/uL (0.0-0.8); MONO % 9.7 % (2.0-8.0); NEUTROPHILS # 5.2 10^3/uL (1.5-8.5); NEUTROPHILS % 59.9 % (36.0-66.0); PLATELET COUNT, AUTOMATED 259 10^3/uL (150-450); WHITE BLOOD COUNT 8.7 10^3/uL (4.0-10.0)
[2021-02-15] MEDS ORDERED: NS 1,000 ML IV SCH (06:10)
--- NOTE | 2021-02-15 06:17 | IPNPDOC ---
Text Note Date of Service The patient was seen on 02/15/21. NOTE Mr. Khanna is admitted to [facility] for GI bleed, latest H&H shows in hemoglo bin and hematocrit to 7.5/24.2 at Midnight and upon 0600 recheck 7.6/24.6. He is asymptomatic at this time, however per policy blood product transfusion is warranted for hemoglobin below 8.0. Plan: Ordered 1 unit of PRBC to infuse over 3 hours, no pre-medication medications ordered at this time. Night time attending made aware and morning (daytime) provider will follow up with patient. Vital signs at midnight stable at 144/83, HR 83, RR 16, temperature 97.1 and O2 saturation 94% on RA. Re-assessment of vital signs at 0400: 128/79, Hr 83, RR 18, temperature 97.6 and 95% O2 saturation remaining on RA. No active bleeding noted. VS,Fishbone, I+O VS, Fishbone, I+O Laboratory Tests 02/14/21 11:37 02/14/21 16:58 02/14/21 23:57 02/15/21 05:20 Vital Signs Date Time Temp Pulse Resp B/P (MAP) Pulse Ox O2 Delivery O2 Flow Rate FiO2 02/15/21 04:00 97.6 83 18 128/79 (95) 95 Room Air I&O- Last 24 Hours up to 6 AM 02/15/21 06:00 Intake Total 160 ml Output Total 0 ml Balance 160 ml KIMBERLI CLARK Feb 15, 2021 06:17
[2021-02-15 06:21] LABS: BLOOD UREA NITROGEN 24 MG/DL (7-18); CALCIUM LEVEL 8.3 MG/DL (8.5-10.1); CARBON DIOXIDE LEVEL 27 MEQ/L (21-32); CHLORIDE LEVEL 113 MEQ/L (98-107); CREATININE FOR GFR 1.12 MG/DL (0.70-1.30); GLOMERULAR FILTRATION RATE > 60.0 (>60); GLUCOSE, FASTING 91 MG/DL (70-100); MAGNESIUM LEVEL 1.7 MG/DL (1.8-2.4); POTASSIUM SERUM 3.8 MEQ/L (3.5-5.1); SODIUM LEVEL 145 MEQ/L (136-145)
[2021-02-15] MEDS: HumaLOG INSULIN (NovoLOG) PER UNIT SC SCH ×4 (07:30→21:00)
[2021-02-15] MEDS: METOPROLOL TART 25 MG TABLET PO SCH ×2 (08:11→21:12)
[2021-02-15] MEDS: SUCRALFATE SUSP 1GM/10ML UD PO SCH ×4 (08:11→21:11)
[2021-02-15] MEDS: LACTOBACILLUS ACIDOPHILUS CAP (BACID) PO SCH ×2 (08:11→21:11)
[2021-02-15] MEDS: GABAPENTIN 300 MG CAP PO SCH ×2 (08:12→21:11)
[2021-02-15] MEDS: ATORVASTATIN 20 MG TAB PO SCH (08:12)
[2021-02-15] MEDS: LEVEMIR (INSULIN DETEMIR) 1 UNITS/0.01ML SC SCH ×2 (08:13→20:48)
[2021-02-15] MEDS ORDERED: MAG SULF 1GM/100ML (MAG RUN) 1 GM in IV 1 EA IV ONE (10:00)
[2021-02-15 12:08] LABS: HEMATOCRIT 26.3 % (42.0-52.0); HEMOGLOBIN 8.2 g/dl (13.5-17.5)
[2021-02-15] MEDS ORDERED: GOLYTELY SOLN 4000 ML BTL PO ONE (13:00)
--- NOTE | 2021-02-15 15:51 | IPNPDOC ---
Text Note Date of Service The patient was seen on 02/15/21. NOTE Subjective: -No acute events Objective: Vitals: see below General: Lying in bed, Speaking in full sentences, AAOx3 HEENT: NC, AT, PERRLA CVS: RRR, +S1S2 Lungs: Fair air entry bilaterally, No appreciable wheezing / rales / rhonchi Abdomen: Soft, Non-distended, mild epigastric tenderness. Mild suprapubic tenderness Extremities: Trace pitting edema bilaterally, No calf tenderness Neuro: No focal motor or sensory deficit kin: No visible rashes Labs: WBC 8.7 Hgb 7.6 platelets 259 na 145 K 3.8 Cr 1.12 mag 1.7 Imaging: CXR 02/14: No significant change other than technique with findings as described above. EKG: See below Assessment and Plan: Rectal bleeding - likely 2/2 LGI bleed - Patient was recently admitted from 02/11-02/12 for similar presentation; didnt require transfusions - BUN elevated suggesting possible upper GI bleeding as well - Continue Protonix / Carafte - Clear liquid diet - Consulted Dr. Arnodl, general surgery; plan for EGD and colonoscopy on 02/16 - NPO at midnight - getting 1u pRBCs this AM for Hgb <8. Recheck at 2pm Elevated Cr: resolved after hydration, back at baseline. HTN - BP elevated in the ER at 160s - c/w Amlodipine / Metoprolol CAD s/p CABG (01/2017) - No recent stents reported - c/w Atorvastatin - Hold Plavix RUE Superficial thrombus DLP - c/w Atorvastatin IDDM2 with Neuropathy - c/w Gabapentin - c/w ISS and reduced dose of Levemir Hx of MSSA bacteremia 2/2 prostate abscess - s/p TURP - Patient has had bilateral hydronephrosis s/p bilateral ureteral stent placement - Has completed antibiotic course - c/w Tamsulosin - Patient was scheduled to follow-up with urology on 02/15 for stent removal - Will have outpatient follow-up with urology GERD - Protonix / Carafate DVT prophylaxis - TEDs/Sequentials VS,Fishbone, I+O VS, Fishbone, I+O Laboratory Tests 02/14/21 11:37 02/14/21 16:58 02/14/21 23:57 02/15/21 05:20 Vital Signs Date Time Temp Pulse Resp B/P (MAP) Pulse Ox O2 Delivery O2 Flow Rate FiO2 02/15/21 09:37 98.2 76 18 133/78 Room Air 02/15/21 09:05 94 I&O- Last 24 Hours up to 6 AM 02/15/21 06:00 Intake Total 160 ml Output Total 0 ml Balance 160 ml DION ARIAS MD Feb 15, 2021 09:59
[2021-02-15 18:23] LABS: HEMATOCRIT 26.5 % (42.0-52.0); HEMOGLOBIN 8.3 g/dl (13.5-17.5)
[2021-02-15] MEDS ORDERED: LEVEMIR (INSULIN DETEMIR) 1 UNITS/0.01ML SC ONE (21:00)
[2021-02-15] MEDS: TAMSULOSIN 0.4 MG CAP PO SCH (21:11)
[2021-02-16] VITALS (11 sets, daily range): BP systolic 135–168; BP diastolic 84–98
[2021-02-16 00:13] LABS: HEMATOCRIT 25.9 % (42.0-52.0)
[2021-02-16] MEDS ORDERED: ONDANSETRON 4MG/2ML VIAL IV PRN (00:55)
[2021-02-16] MEDS ORDERED: METOCLOPRAMIDE INJ 10MG/2ML VIAL (J2765 PER 1) IV PRN (01:15)
[2021-02-16] MEDS: NS 1,000 ML IV SCH ×3 (01:31→15:55)
[2021-02-16] MEDS: PANTOPRAZOLE 40MG VIAL (C9113 PER 1) IV SCH ×2 (03:50→15:55)
[2021-02-16 06:58] LABS: BASO # 0.1 10^3/uL (0.0-0.2); BASO % 0.6 % (0.0-1.0); EOS # 0.3 10^3/uL (0.0-0.5); HEMATOCRIT 25.2 % (42.0-52.0); HEMOGLOBIN 7.8 g/dl (13.5-17.5); LYMPH % 22.8 % (24.0-44.0); MEAN CORPUSCULAR HEMOGLOBIN 27.5 pg (27.0-33.0); MEAN CORPUSCULAR VOLUME 88.7 fl (80.0-96.0); MONO # 0.8 10^3/uL (0.0-0.8); MONO % 8.8 % (2.0-8.0); NEUTROPHILS # 5.6 10^3/uL (1.5-8.5); NEUTROPHILS % 64.5 % (36.0-66.0); PLATELET COUNT, AUTOMATED 245 10^3/uL (150-450); RED BLOOD COUNT 2.84 10^6/uL (4.30-6.10); WHITE BLOOD COUNT 8.7 10^3/uL (4.0-10.0)
[2021-02-16 07:17] LABS: BLOOD UREA NITROGEN 20 MG/DL (7-18); CALCIUM LEVEL 8.4 MG/DL (8.5-10.1); CARBON DIOXIDE LEVEL 26 MEQ/L (21-32); CHLORIDE LEVEL 111 MEQ/L (98-107); CREATININE FOR GFR 1.14 MG/DL (0.70-1.30); GLOMERULAR FILTRATION RATE > 60.0 (>60); GLUCOSE, FASTING 114 MG/DL (70-100); MAGNESIUM LEVEL 2.1 MG/DL (1.8-2.4); POTASSIUM SERUM 3.7 MEQ/L (3.5-5.1); SODIUM LEVEL 143 MEQ/L (136-145)
[2021-02-16] MEDS: HumaLOG INSULIN (NovoLOG) PER UNIT SC SCH ×4 (07:30→21:00)
[2021-02-16] MEDS ORDERED: FLEET ENEMA PR PRN (09:00)
[2021-02-16] MEDS: LEVEMIR (INSULIN DETEMIR) 1 UNITS/0.01ML SC SCH ×2 (09:00→21:00)
[2021-02-16] MEDS: METOPROLOL TART 25 MG TABLET PO SCH ×2 (09:40→20:43)
[2021-02-16] MEDS: GABAPENTIN 300 MG CAP PO SCH ×2 (09:40→20:43)
[2021-02-16] MEDS: LACTOBACILLUS ACIDOPHILUS CAP (BACID) PO SCH ×2 (09:40→20:42)
[2021-02-16] MEDS: ATORVASTATIN 20 MG TAB PO SCH (09:40)
[2021-02-16] MEDS: SUCRALFATE SUSP 1GM/10ML UD PO SCH ×4 (09:41→20:42)
--- NOTE | 2021-02-16 12:22 | IPNPDOC ---
Text Note Date of Service The patient was seen on 02/16/21. NOTE No acute events overnight. He has had 5 BMs that are all blood and clots. No abd pains. VSSAF NAD abd - soft, nt, nd labs - below A) 50y/o male with gi bleed from unknown source s/p transfusion P) EGD and colonoscopy this afternoon. no changes to H+P Julien Arnold DO VS,Fishbone, I+O VS, Fishbone, I+O Laboratory Tests 02/15/21 17:57 02/15/21 23:50 02/16/21 05:35 Vital Signs Date Time Temp Pulse Resp B/P (MAP) Pulse Ox O2 Delivery O2 Flow Rate FiO2 02/16/21 09:40 111 148/92 02/16/21 06:00 97.1 16 96 Room Air I&O- Last 24 Hours up to 6 AM 02/16/21 05:59 Intake Total 3800 ml Output Total 1100 ml Balance 2700 ml SAMANTHA ARNOLD DO Feb 16, 2021 12:22
--- NOTE | 2021-02-16 13:48 | IPNPDOC ---
Text Note Date of Service The patient was seen on 02/16/21. NOTE Subjective: -Multiple bloody BMs during prep over the last 24h. No abdominal pain. -Pending EGD/colonoscopy today at noon by Dr. Arnold Objective: Vitals: see below General: Lying in bed, Speaking in full sentences, AAOx3 HEENT: NC, AT, PERRLA CVS: RRR, +S1S2 Lungs: Fair air entry bilaterally, No appreciable wheezing / rales / rhonchi Abdomen: Soft, Non-distended, mild epigastric tenderness. Mild suprapubic tenderness Extremities: Trace pitting edema bilaterally, No calf tenderness Neuro: No focal motor or sensory deficit kin: No visible rashes Labs: WBC 8.7 Hgb 7.8 platelets 245 na 143 K 3.7 Cr 1.14 mag 2.1 Imaging: CXR 02/14: No significant change other than technique with findings as described above. EKG: See below Assessment and Plan: Rectal bleeding - likely 2/2 LGI bleed - Patient was recently admitted from 02/11-02/12 for similar presentation; didnt r equire transfusions - BUN elevated suggesting possible upper GI bleeding as well - Continue Protonix / Carafte - NPO for colonoscopy today - Consulted Dr. Arnold, general surgery; plan for EGD and colonoscopy 02/16 - ordered 2u pRBCs this AM for Hgb <8. Elevated Cr: resolved after hydration, back at baseline. HTN - BP elevated in the ER at 160s - c/w Amlodipine / Metoprolol CAD s/p CABG (01/2017) - No recent stents reported - c/w Atorvastatin - Hold Plavix RUE Superficial thrombus DLP - c/w Atorvastatin IDDM2 with Neuropathy - c/w Gabapentin - c/w ISS and reduced dose of Levemir Hx of MSSA bacteremia 2/2 prostate abscess - s/p TURP - Patient has had bilateral hydronephrosis s/p bilateral ureteral stent placement - Has completed antibiotic course - c/w Tamsulosin - Patient was scheduled to follow-up with urology on 02/15 for stent removal - Will have outpatient follow-up with urology GERD - Protonix / Carafate DVT prophylaxis - TEDs/Sequentials VS,Fishbone, I+O VS, Fishbone, I+O Laboratory Tests 02/15/21 11:48 02/15/21 17:57 02/15/21 23:50 02/16/21 05:35 Vital Signs Date Time Temp Pulse Resp B/P (MAP) Pulse Ox O2 Delivery O2 Flow Rate FiO2 02/16/21 09:40 111 148/92 02/16/21 06:00 97.1 16 96 Room Air I&O- Last 24 Hours up to 6 AM 02/16/21 06:00 Intake Total 4363 ml Output Total 1100 ml Balance 3263 ml DION ARIAS MD Feb 16, 2021 10:24
[2021-02-16] MEDS ORDERED: fentaNYL 100 MCG/2 ML INJECTION (J3010) As Ordered ONE (13:59)
[2021-02-16] MEDS ORDERED: LIDOCAINE 2% 100MG/5ML SDV (FOR ANES.) As Ordered ONE (13:59)
[2021-02-16] MEDS ORDERED: propofoL 200 MG/20 ML VIAL As Ordered ONE ×2 (13:59→14:11)
--- NOTE | 2021-02-16 14:52 | ROOR ---
Patient Name: Bernardo Khanna Procedure Date: 02/16/2021 2:13 PM Date of : 1970 Age: 50 Room: [facility] Gender: Male Note Status: Finalized Procedure: Upper GI endoscopy Indications: Hematochezia Providers: DO Hanna Gerard MD: 2. Inpatient 2. Inpatient Requesting Provider: Medicines: Propofol per Anesthesia Complications: No immediate complications. Procedure: Pre-Anesthesia Assessment: - Prior to the procedure, a History and Physical was performed, and patient medications and allergies were reviewed. The patient is competent. The risks and benefits of the procedure and the sedation options and risks were discussed with the patient. All questions were answered and informed consent was obtained. Patient identification and proposed procedure were verified by the physician, the nurse, the anesthesiologist and the bone density technician in the endoscopy suite. Mental Status Examination: alert and oriented. Airway Examination: normal oropharyngeal airway and neck mobility. Respiratory Examination: clear to auscultation. CV Examination: normal. Prophylactic Antibiotics: The patient does not require prophylactic antibiotics. Prior Anticoagulants: The patient has taken no previous anticoagulant or antiplatelet agents. ASA Grade Assessment: III - A patient with severe systemic disease. After reviewing the risks and benefits, the patient was deemed in satisfactory condition to undergo the procedure. The anesthesia plan was to use monitored anesthesia care (MAC). Immediately prior to administration of medications, the patient was re-assessed for adequacy to receive sedatives. The heart rate, respiratory rate, oxygen saturations, blood pressure, adequacy of pulmonary ventilation, and response to care were monitored throughout the procedure. The physical status of the patient was re-assessed after the procedure. The Endoscope was introduced through the mouth, and advanced to the second part of duodenum. The upper GI endoscopy was accomplished without difficulty. The patient tolerated the procedure well. Findings: The esophagus was normal. The stomach was normal. The examined duodenum was normal. Impression: - Normal esophagus. - Normal stomach. - Normal examined duodenum. - No specimens collected. Recommendation: - [facility]. Procedure Code(s): --- Professional --- 76974, Esophagogastroduodenoscopy, flexible, transoral; diagnostic, including collection of specimen(s) by brushing or washing, when performed (separate procedure) Diagnosis Code(s): --- Professional --- K92.1, Melena (includes Hematochezia) CPT copyright 2019 [employer]. All rights reserved. The codes documented in this report are preliminary and upon delivery consultant review may be revised to meet current compliance requirements. Vincenzo Arnold DO 02/16/2021 2:52:30 PM Electronically signed by Vincenzo Arnold DO Number of Addenda: 0 Note Initiated On: 02/16/2021 2:13 PM Estimated Blood Loss: Estimated blood loss: none.
--- NOTE | 2021-02-16 14:55 | ROOR ---
Patient Name: Bernardo Khnana Procedure Date: 02/16/2021 2:14 PM Date of : 1970 Age: 50 Room: [facility] Gender: Male Note Status: Finalized Procedure: Colonoscopy Indications: Hematochezia Providers: DO Hanna Gerard MD: 2. Inpatient 2. Inpatient Requesting Provider: Medicines: Propofol per Anesthesia Complications: No immediate complications. Procedure: Pre-Anesthesia Assessment: - Prior to the procedure, a History and Physical was performed, and patient medications and allergies were reviewed. The patient is competent. The risks and benefits of the procedure and the sedation options and risks were discussed with the patient. All questions were answered and informed consent was obtained. Patient identification and proposed procedure were verified by the physician, the nurse, the online content developer and the agriculture technician in the endoscopy suite. Mental Status Examination: alert and oriented. Airway Examination: normal oropharyngeal airway and neck mobility. Respiratory Examination: clear to auscultation. CV Examination: normal. Prophylactic Antibiotics: The patient does not require prophylactic antibiotics. Prior Anticoagulants: The patient has taken no previous anticoagulant or antiplatelet agents. ASA Grade Assessment: III - A patient with severe systemic disease. After reviewing the risks and benefits, the patient was deemed in satisfactory condition to undergo the procedure. The anesthesia plan was to use monitored anesthesia care (MAC). Immediately prior to administration of medications, the patient was re-assessed for adequacy to receive sedatives. The heart rate, respiratory rate, oxygen saturations, blood pressure, adequacy of pulmonary ventilation, and response to care were monitored throughout the procedure. The physical status of the patient was re-assessed after the procedure. The Colonoscope was introduced through the anus and advanced to the cecum, identified by appendiceal orifice and ileocecal valve. The colonoscopy was performed without difficulty. The patient tolerated the procedure well. The quality of the bowel preparation was poor. Findings: Non-bleeding internal hemorrhoids were found during retroflexion. The hemorrhoids were Grade I (internal hemorrhoids that do not prolapse). Four pedunculated polyps were found in the sigmoid colon and transverse colon. The polyps were 3 to 10 mm in size. These polyps were removed with a hot snare. Resection and retrieval were complete. Estimated blood loss was minimal. Impression: - Preparation of the colon was poor. - Non-bleeding internal hemorrhoids. - Four 3 to 10 mm polyps in the sigmoid colon and in the transverse colon, removed with a hot snare. Resected and retrieved. Recommendation: - [facility] to [facility] care. - Repeat colonoscopy within 3 months for surveillance of multiple polyps. - Repeat colonoscopy in 3 months because the bowel preparation was poor. - Return to my office at appointment to be scheduled. Procedure Code(s): --- Professional --- 18258, Colonoscopy, flexible; with removal of tumor(s), polyp(s), or other lesion(s) by snare technique Diagnosis Code(s): --- Professional --- K64.0, First degree hemorrhoids K63.5, Polyp of colon K92.1, Melena (includes Hematochezia) CPT copyright 2019 [employer]. All rights reserved. The codes documented in this report are preliminary and upon policy checker review may be revised to meet current compliance requirements. Vincenzo Arnold DO 02/16/2021 2:55:05 PM Electronically signed by Vincenzo Arnold DO Number of Addenda: 0 Note Initiated On: 02/16/2021 2:14 PM Estimated Blood Loss: Estimated blood loss was minimal.
[2021-02-16] MEDS: TAMSULOSIN 0.4 MG CAP PO SCH (20:42)
[2021-02-17] MEDS: PANTOPRAZOLE 40MG VIAL (C9113 PER 1) IV SCH ×2 (03:12→15:31)
[2021-02-17 05:52] LABS: BASO # 0.1 10^3/uL (0.0-0.2); EOS # 0.3 10^3/uL (0.0-0.5); EOS % 3.9 % (0.0-3.0); HEMOGLOBIN 9.7 g/dl (13.5-17.5); LYMPH # 1.6 10^3/uL (1.5-5.0); LYMPH % 19.9 % (24.0-44.0); MEAN CORPUSCULAR HEMOGLOBIN 27.4 pg (27.0-33.0); MEAN CORPUSCULAR HGB CONC 32.3 g/dl (32.0-36.5); MEAN CORPUSCULAR VOLUME 84.7 fl (80.0-96.0); MONO # 0.7 10^3/uL (0.0-0.8); MONO % 9.2 % (2.0-8.0); NEUTROPHILS # 5.2 10^3/uL (1.5-8.5); NEUTROPHILS % 65.7 % (36.0-66.0); PLATELET COUNT, AUTOMATED 262 10^3/uL (150-450); RED BLOOD COUNT 3.54 10^6/uL (4.30-6.10); WHITE BLOOD COUNT 7.9 10^3/uL (4.0-10.0)
[2021-02-17 06:00] VITALS: BP 162/94
[2021-02-17 06:21] LABS: BLOOD UREA NITROGEN 11 MG/DL (7-18); CARBON DIOXIDE LEVEL 26 MEQ/L (21-32); CHLORIDE LEVEL 109 MEQ/L (98-107); CREATININE FOR GFR 1.06 MG/DL (0.70-1.30); GLOMERULAR FILTRATION RATE > 60.0 (>60); GLUCOSE, FASTING 102 MG/DL (70-100); MAGNESIUM LEVEL 1.9 MG/DL (1.8-2.4); POTASSIUM SERUM 3.5 MEQ/L (3.5-5.1); SODIUM LEVEL 142 MEQ/L (136-145)
[2021-02-17] MEDS: HumaLOG INSULIN (NovoLOG) PER UNIT SC SCH ×2 (07:30→13:10)
[2021-02-17] MEDS: LEVEMIR (INSULIN DETEMIR) 1 UNITS/0.01ML SC SCH (08:25)
[2021-02-17] MEDS: SUCRALFATE SUSP 1GM/10ML UD PO SCH ×2 (08:30→13:09)
[2021-02-17 08:31] VITALS: BP 158/96
[2021-02-17] MEDS: ATORVASTATIN 20 MG TAB PO SCH (08:31)
[2021-02-17] MEDS: LACTOBACILLUS ACIDOPHILUS CAP (BACID) PO SCH (08:31)
[2021-02-17] MEDS: GABAPENTIN 300 MG CAP PO SCH (08:31)
[2021-02-17] MEDS: METOPROLOL TART 25 MG TABLET PO SCH (08:31)
--- NOTE | 2021-02-17 10:50 | IPNPDOC ---
Text Note Date of Service The patient was seen on 02/17/21. NOTE No acute events overnight. No more bleeding, and he is tolerating diet. Hgb is stable. VSSAF NAD abd - soft, nt, nd labs - below A) 50y/o male s/p egd and colonoscopy with large sigmoid polyps P) reg diet stable for d/c home f/u in office for path results Julien Arnold DO VS,Fishbone, I+O VS, Fishbone, I+O Laboratory Tests 02/17/21 05:36 Vital Signs Date Time Temp Pulse Resp B/P (MAP) Pulse Ox O2 Delivery O2 Flow Rate FiO2 02/17/21 08:31 90 158/96 02/17/21 06:00 97.9 16 95 Room Air I&O- Last 24 Hours up to 6 AM 02/17/21 05:59 Intake Total 3787 ml Output Total 1200 ml Balance 2587 ml SAMANTHA ARNOLD DO Feb 17, 2021 10:50
--- NOTE | 2021-02-17 11:18 | CR ---
CONSULTATION DATE: 02/15/2021 CHIEF COMPLAINT: Blood in his stool. HISTORY OF PRESENT ILLNESS: The patient is a 50-year-old male with a history of blood in his stool. He was recently admitted on 02/11 and 02/12 for the same thing. He was on Eliquis at the time for superficial venous thrombosis for an upper arm that was discontinued on the . He had no problems over the weekend until Sunday, then he started to have two to three bloody bowel movements again. Because of that, he came back into the Emergency Room on Sunday. He was admitted to the Medicine Service. He is being transfused again for his anemia and they have asked me to evaluate him for inpatient endoscopy. The plan was for prep today and will do a scope tomorrow. He denies any prior scope. No trauma to the abdomen, no change in bowel movements other than having the blood in his stool that has been fairly regular. He describes it as bright-red mixed into the stool, not just when he wipes, occasionally passing large clots as well. No abdominal pains. No abdominal cramping. No problems with heartburn or reflux. PAST MEDICAL HISTORY: Hypertension, coronary artery disease, dyslipidemia, diabetes, GERD. PAST SURGICAL HISTORY: Right shoulder surgery. ALLERGIES: None. MEDICATIONS: Please see med rec. REVIEW OF SYSTEMS: Pertinent positives and negatives as stated in the HPI. PHYSICAL EXAMINATION: GENERAL: Alert and oriented x3, in no acute distress. VITAL SIGNS: Temperature is 98.2, pulse is 84, respirations are 18, blood pressure is 134/68. Pulse oximetry 94% on room air. HEENT: Pupils equally round and reactive to light and accommodation. HEART: S1 and S2, regular rate and rhythm. LUNGS: Clear to auscultation bilaterally. ABDOMEN: Soft, nontender and nondistended. EXTREMITIES: No cyanosis, clubbing or edema. LABORATORY DATA: White count 8.7, hemoglobin 7.6, platelets are 259,000. Potassium is 3.8. Creatinine 1.12. Lactic acid is 1.1. ASSESSMENT AND PLAN: The patient is a 50-year-old male with a history of recent lower GI bleeding likely from lower, possibly from an upper source. The recommendation at this time is to proceed with both an upper and lower endoscopy to determine the source of his GI bleeding. He is currently being transfused and will start bowel prep today as well. Will plan for upper and lower endoscopy tomorrow.
[2021-02-17 14:00] VITALS: BP 149/66
--- NOTE | 2021-02-17 14:50 | DS.PDOC ---
Discharge Summary General Date of Admission Feb 14, 2021 at 14:12 Date of Discharge 02/17/2021 Attending Physician: DION ARIAS MD Discharge Summary PROCEDURES PERFORMED DURING STAY: EGD/Colonoscopy 02/16/2021 ADMITTING DIAGNOSES: Rectal bleeding DISCHARGE DIAGNOSES: LGIB HTN CAD s/p CABG (01/2017); no stents reported Recent history of RUE superficial thrombus DLP IDDM2 Hx of MSSA bacteremia 2/2 prostate abscess; complicated with seeding of R acromioclavicular joint Hx of Right Acromioclavicular joint / posterior proximal arm abscess / infected subacromial space / left septic subacromial bursitis s/p washout Hx of Ulceration of LLE GERD COMPLICATIONS/CHIEF COMPLAINT: Lower Gi Bleed, Rectal Bleeding. HISTORY OF PRESENT ILLNESS: 50-year-old M who presented to the emergency room with episodes of blood in his stool. Patient was recently at [facility] from 02/11 to 02/12 for similar presentation. At that point, he was on Eliquis for a superficial venous thrombus in the distal upper arm cephalic vein and the eliquis was discontinued and patients hemoglobin was trended and stabilized and he did not require transfusions and was subsequently discharged home with Carafate and instructions to follow-up with gastroenterology. He reports doing well post discharge until he began to experience multiple episodes of blood per rectum that prompted his ED visit. Of note, he also had a recent prolonged hospital stay from 12/23 to 01/31 for DKA, sepsis 2/2 MSSA bacteremia from prostate abscess, complicated with septic emboli to the right shoulder. Patient had stenting of both his ureters, transurethral resection of prostate abscess and clean out of his right shoulder. HOSPITAL COURSE: Upon arrival to emergency room, patient reported some lightheadedness and dizziness. He denies any chest pain, shortness of breath, palpitations, but does report a chronic dry cough. He reported some abdominal pain that was mostly epigastric, but denies recent fever, chills, dysuria, hematuria. His hematochezia persisted and surgery was consulted, and he had an EGD /colo on 02/16 during which he was found to not have active bleeding, had 4 sigmoid polyps that were removed by hot snare, and also had non-bleeding internal hemorrhoids and recommended to have a follow up colonscopy in 3 months. He did receive 3u of pRBCs during this admission. He is now being discharged home with close PCP follow up and surgery follow up within 3m to plan for repeat colonscopy in 3 months. DISCHARGE MEDICATIONS: Please see below. ALLERGIES: Please see below. PHYSICAL EXAMINATION ON DISCHARGE: VITAL SIGNS: Please see below. Vitals: see below General: Lying in bed, Speaking in full sentences, AAOx3 HEENT: NC, AT, PERRLA CVS: RRR, +S1S2 Lungs: Fair air entry bilaterally, No appreciable wheezing / rales / rhonchi Abdomen: Soft, Non-distended, mild epigastric tenderness. Mild suprapubic t enderness Extremities: Trace pitting edema bilaterally, No calf tenderness Neuro: No focal motor or sensory deficit kin: No visible rashes LABORATORY DATA: Please see below. IMAGING: CXR 02/14: No significant change other than technique with findings as described above. PROGNOSIS: Good ACTIVITY: As tolerated DIET: Consistent carb DISCHARGE PLAN: Home DISPOSITION: Home DISCHARGE INSTRUCTIONS: PCP within 1w, surgery within 3m for repeat colonoscopy planning ITEMS TO FOLLOWUP ON ON OUTPATIENT: GIB DISCHARGE CONDITION: Stable TIME SPENT ON DISCHARGE: 43 minutes. Vital Signs/I&Os Vital Signs Date Time Temp Pulse Resp B/P (MAP) Pulse Ox O2 Delivery O2 Flow Rate FiO2 02/17/21 08:31 90 158/96 02/17/21 06:00 97.9 16 95 Room Air I&O- Last 24 Hours up to 6 AM 02/17/21 06:00 Intake Total 3304 ml Output Total 1200 ml Balance 2104 ml Laboratory Data Labs 24H Laboratory Tests 2 02/16/21 11:45: Bedside Glucose (Misc Panel) 120H 02/16/21 17:08: Bedside Glucose (Misc Panel) 108H 02/16/21 21:20: Bedside Glucose (Misc Panel) 124H 02/17/21 05:36: Immature Granulocyte % (Auto) 0.3, Neutrophils (%) (Auto) 65.7, Lymphocytes (%) (Auto) 19.9L, Monocytes (%) (Auto) 9.2H, Eosinophils (%) (Auto) 3.9H, Basophils (%) (Auto) 1.0, Neutrophils # (Auto) 5.2, Lymphocytes # (Auto) 1.6, Monocytes # (Auto) 0.7, Eosinophils # (Auto) 0.3, Basophils # (Auto) 0.1, Nucleated Red Blood Cells % (auto) 0.0, Anion Gap 7L, Glomerular Filtration Rate > 60.0, Calcium Level 8.0L, Magnesium Level 1.9 CBC/BMP Laboratory Tests 02/17/21 05:36 FSBS Laboratory Tests Test 02/16/21 11:45 02/16/21 17:08 02/16/21 21:20 Range/Units Bedside Glucose (Misc Panel) 120 108 124 70-105 MG/DL Microbiology Microbiology 02/14/21 Stool Occult Blood (CHIDI) - Final, Complete Discharge Medications Scheduled Amlodipine Besylate (Amlodipine Besylate) 10 Mg Tablet, 10 MG PO DAILY, (Reported) Atorvastatin Calcium (Atorvastatin Calcium) 80 Mg Tablet, 80 MG PO DAILY, (Reported) Clopidogrel Bisulfate (Plavix) 75 Mg Tablet, 75 MG PO DAILY, (Reported) Docusate Sodium (Docusate Sodium) 100 Mg Capsule, 100 MG PO BID, (Reported) Gabapentin (Gabapentin) 300 Mg Capsule, 300 MG PO BID, (Reported) Insulin Glargine,Hum.rec.anlog (Semglee Pen) 100 Unit/Ml (3 Ml) Insuln.pen, 25 UNIT SQ BID, (Reported) L.acidoph/L.bulg/B.bif/S.therm (Ely-Bid Caplet) 1 Each Tablet, 2 TAB PO BID, (Reported) Lisinopril (Lisinopril) 10 Mg Tablet, 20 MG PO QHS, (Reported) Metoprolol Tartrate (Metoprolol Tartrate) 25 Mg Tablet, 50 MG PO BID, (Reported) Pantoprazole Sodium (Pantoprazole Sodium) 40 Mg Tablet.dr, 40 MG PO DAILY, (Reported) Sucralfate (Sucralfate) 1 Gm Tablet, 1 GM PO AC, (Reported) Tamsulosin HCl (Flomax) 0.4 Mg Capsule, 0.4 MG PO QHS, (Reported) Allergies Coded Allergies: No Known Drug Allergies (Verified Allergy, Unknown, 07/10/20) DION ARIAS MD Feb 17, 2021 14:17
== END 2021-02-17 15:56 | disposition home or self-care (01) | DRG 253 ==
LOC: M ED 09:31 → M ED INP 14:12 → ENRESERV 15:00 → M PCU 17:53 → M MSPAV 02-15 22:16
PROVIDERS: ADMIT Internal Medicine; ATTEND Internal Medicine
PROC: 30233N1 Transfusion of Nonautologous Red Blood Cells into Peripheral Vein, Percutaneous Approach (ICD-10-PCS; 2021-02-15)
PROC: 0DBN8ZX Excision of Sigmoid Colon, Via Natural or Artificial Opening Endoscopic, Diagnostic (ICD-10-PCS; 2021-02-16)
PROC: 0DBL8ZX Excision of Transverse Colon, Via Natural or Artificial Opening Endoscopic, Diagnostic (ICD-10-PCS; 2021-02-16)
PROC: 0DJ08ZZ Inspection of Upper Intestinal Tract, Via Natural or Artificial Opening Endoscopic (ICD-10-PCS; principal; 2021-02-16 14:20)
DX: K62.5 Hemorrhage of anus and rectum (principal); E11.40 Type 2 diabetes mellitus with diabetic neuropathy, unspecified; I10 Essential (primary) hypertension; I25.10 Atherosclerotic heart disease of native coronary artery without angina pectoris; K21.9 Gastro-esophageal reflux disease without esophagitis; Z79.899 Other long term (current) drug therapy; Z95.1 Presence of aortocoronary bypass graft; K64.0 First degree hemorrhoids; D12.5 Benign neoplasm of sigmoid colon; D12.3 Benign neoplasm of transverse colon

== ENCOUNTER 2021-03-08 13:45 | Outpatient (RCR) | payer OTHER | END 2021-03-09 | LOC: M PT 13:45 | PROVIDERS: ATTEND Orthopaedic Surgery | DX: M71.112 Other infective bursitis, left shoulder (principal); M71.111 Other infective bursitis, right shoulder ==

== ENCOUNTER → 2021-03-08 | Outpatient (CLI) | payer OTHER ==
[~2021-03-08] MED LIST changes: +DOCU100C16 PO; +INSU100I28 SQ; +PLAV1TAB2 PO; +SUCR1TAB56 PO
[2021-03-08 17:49] LABS: CHOLESTEROL RISK RATIO 3.46 (<5)
[2021-03-08 18:16] LABS: CREATININE, URINE 51.6 MG/DL; MAU/CREAT RATIO 2170.5 MCG/MG (0.0-30.0)
== END ==
LOC: M PLALAB 13:46
PROVIDERS: ATTEND Student in an Organized Health Care Education/Training Program
DX: I10 Essential (primary) hypertension (principal); E13.65 Other specified diabetes mellitus with hyperglycemia

== ENCOUNTER → 2021-03-15 | Outpatient (CLI) | payer OTHER ==
--- NOTE | 2021-03-15 15:38 | REP ---
INDICATION: OTHER NONSPECIFIC ABNORMAL FINDING OF LUNG FIELD. COMPARISON: Multiple the latest 02/14/2021 a portable exam TECHNIQUE: PA and lateral FINDINGS: There is mild cardiomegaly. Note is again made of previous median sternotomy. There is chronic persistent mild elevation of the diaphragmatic surface of the right lung. There are new abnormal lung field opacities. The pleural angles are again seen to be sharp. There is no change in the osseous structures. IMPRESSION: No evidence of a new lung field opacities. If following up pulmonary nodules than chest CT is recommend <Electronically signed by Ty Mcdaniel > 03/15/21 [id number]
== END ==
LOC: M PLAIMG 14:42
PROVIDERS: ATTEND Internal Medicine Infectious Disease
DX: R91.8 Other nonspecific abnormal finding of lung field (principal)

== ENCOUNTER → 2021-03-15 | Outpatient (CLI) | payer OTHER ==
--- NOTE | 2021-03-15 14:50 | REP ---
INDICATION: HYDRONEPHROSIS. COMPARISON: 12/24/2020. TECHNIQUE: Real-time sonographic evaluation of the kidneys is performed. FINDINGS: Renal cortical echogenicity pattern is normal bilaterally and contours are smooth on the left and lobulated on the right. There is no evidence of hydronephrosis, cyst, mass, or calculus in either kidney. The right kidney measures 10.1 x 4.1 x 5.0 cm. Left renal dimensions are 16.1 x 4.9 x 7.1 cm. IMPRESSION: Left kidney larger than right. No hydronephrosis. <Electronically signed by Vincenzo Moyer > 03/15/21 [id number]
--- NOTE | 2021-03-15 14:51 | REP ---
INDICATION: HYDRONEPHROSIS COMPARISON: None TECHNIQUE: Real time B-mode ultrasound examination using curved array transducer. FINDINGS: Bladder is normal in appearance without significant wall thickening or mass lesion. Prevoid bladder measures 12.4 x 7.8 x 7.6 cm (480 cc). Postvoid bladder was completely emptied. Postvoid residual: 0% IMPRESSION: 1. Normal bladder ultrasound. <Electronically signed by Ramon North > 03/15/21 [id number]
== END ==
LOC: M RAD 13:44
PROVIDERS: ATTEND Urology
DX: N13.39 Other hydronephrosis (principal)

== ENCOUNTER 2021-07-06 16:07 | Emergency (ER) | payer OTHER ==
[~2021-07-06] VITALS: Ht 182.9 cm; Wt 111.0 kg
[2021-07-06 16:09] VITALS: BP 161/94
[2021-07-06] MEDS ORDERED: ECOT81TA5 PO (16:15)
--- OUTSIDE RECORDS SUMMARY | 2021-07-06 16:15 | CCD ---
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 Activ e confirmed 298264444 Problem Retained ureteral stent Z96.0 Active confirmed 356813476 Problem Hypertension, unspecified type I10 Active confir med 67252337 Problem 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 Active confirmed 87 40268 Problem Coronary artery disease invo lving [place] coronary artery of [place] heart without angina pectoris I25.10 Active confirmed 542997 000 Problem MSSA (methicillin susceptible Staphylococcus aureus) A49.01 Active confirmed 824928587 Problem Pulmonary nodules/lesions, multiple R91.8 Acti ve confirmed 877202819 Problem Diabetic ketoacidosis withou t coma associated with other specified diabetes mellitus E13.10 Active confirmed 486896367 Problem Iron deficiency anemia, unspecified iron deficiency an emia type D50.9 Active confirmed 21476754 Problem Uncontrolled other specified diabetes mellitus w ith hyperglycemia E13.65 Active confirmed 41295715 Problem Iron deficiency anemia due to chronic blood loss D 50.0 Active confirmed 098546860 Problem Essential hypertension I10 Active confirmed 22551453 Problem Insulin dependent diabetes mellitus type IA E10.9 Active confirmed 00000495 Problem Ulcer of left lower extremity, limited to breakdown of ski n L97.921 Active confirmed 395315335 ALLERGIES No Known Allergies ENCOUNTERS from 1972 to 2021-05-17 [place]counter Location Date Provider [place] [facility] [place] [address] [facility] [address] [phone] [place] [address] Apr, Jerrikim Terrance IMMUNIZATIONS No Information SOCIAL HISTORY Tobacco Use: Social History Observation Description Date Details (start date - stop date) Never Smoker Sex Assigned At : Social History Observation Description Sex Assigned At Unknown Audit Question Answer Notes Total Score: 0 Interpretation: Alcohol Education Language: Question Answer Notes Languages spoken: Ukrainian Drug and Alcohol Question Answer Notes Total Score: 0 Interpretation: No problems reported Alcohol Screening: Question Answer Notes Did you have a drink containing alcohol in the past year? No Points 0 Interpretation Negative Tobacco Use: Question Answer Notes Are you a: never smoker REASON FOR REFERRAL No Information VITAL SIGNS No information MEDICATIONS Medication SIG (Take, Route, Frequency, Duration) Notes Start Da te End Date Status Lisinopril 10 MG 1 tablet Orally Once a day for 30 day(s) Apr, Active Gabapentin 300 MG TAKE ONE CAPSULE BY MOUTH TWICE A DAY Oral for 30 Active Pantoprazole Sodium 40 MG TAKE ONE TABLET BY MOUTH EVERY DAY Oral for 30 Active Ferrex 150 150 MG 1 capsule Orally Once a day for 30 day(s) Feb, Active Trulicity 0.75 MG/0.5ML as directed Subcutaneous weekly for 30 d ays Apr, Active Atorvastatin Calcium 80 MG 1 tablet Orally Once a day for 30 day(s) Active BD Insulin Syringe U-100 1 ML as directed subcutaneous ly twice daily for 30 Days Feb, Active SM Aspirin Adult Low Strength 81 MG TAKE ONE TABLET BY MOUTH EVERY DAY Oral for 30 Not-Taking Metoprolol Tartrate 25 mg take two tablets by mouth tw ice a day Oral twice daily for 30 days Active Probiotic 250 MG 1 capsule Orally Twice a day for 30 day(s) Active Trulicity 0.75 MG/0.5ML as directed Subcutaneous Active Admelog 100 UNIT/ML as directed Subcutaneous Not-Taking Senna Plus 8.6-50 MG 1 tablet in the evening as n eeded Orally Once a day for 30 day(s) Active Semglee 100 UNIT/ML inject 35 units subcutaneous ly two times a day Subcutaneous bid Active Lisinopril 10 MG 1 tablet Orally Once a day for 30 day(s) Active Amlodipine Besylate 10 MG take one tablet by mouth emmett ry day Oral once daily for 30 days Active Clopidogrel Bisulfate 75 MG 1 tablet Orally Once a day for 30 day(s) Active Tamsulosin HCl 0.4 MG TAKE ONE CAPSULE BY MOUTH EVERY DAY Oral for 30 Active PROCEDURES No Information RESULTS No Results REASON FOR VISIT Nursing note - referral?? MEDICAL (GENERAL) HISTORY Type Description Date Medical History diabetes mellitus type 2; insulin depend ent Medical History Hx of MSSA Bacteremia Medical History Hypertension Medical History Hx of Bilateral shoulder abscess Medical History Right cephalic vein nonocclusive thrombo sis, provoked Medical History CAD s/p CABG in 2018 Medical History History of DEANDRE 12/23/2020 Medical History Hx of prostatic abscess Medical History HX of Right and left hydronephrosis requ iring stent placement Surgical History Cystoscopy, Left retrograde pyelogram, stent insertion and johns catheterization 12/25/20 Surgical History Cystoscopy, right retrograde , right ureteral stent placement, TURP prostate abscess and x-ray interpretation with fluoroscopy 12/31/20 Surgical History Arthoscopic right subacromial space irri gation and debridement 01/05/21 Surgical History Open irrigation and debridem ent of right acromioclavicular joint 01/05/21 Surgical History Open Irrigation and debridem ent of right proximal posterior arm 01/05/21 Surgical History Right shoulder arthroscopic irrigation and debridement of the subacromial space 01/21/21 Surgical History Right shoulder irrigation an d debridement of posterolateral proximal arm abscess 01/21/21 Surgical History Right AC joint irrigation an d debridement with partial distal clavicle resection 01/21/21 Surgical History Left subacromial space irrigation and de bridement, arthoscopic 01/21/21 Surgical History Bilateral shoulder examinati on under anesthesia and maniupulation under anesthesia 01/21/21 Surgical History Right sided thoracentesis 01/24/21 Surgical History Left upper extremity PICC line placement 01/06/21 Surgical History CABG 2018 Hospitalization History DKA,Severe sepsis with MSSA bacteremia, Diabetes, DEANDRE, Ulceration of left lower extremity, Coronary artery disease status post CABG 12/25/2020 Goals Section No Information Health Concerns No Information MEDICAL EQUIPMENT No Information MENTAL STATUS No Information FUNCTIONAL STATUS No Information ASSESSMENTS No Information PLAN OF TREATMENT Medication Medication Name Sig Start Date Stop Date Lisinopril 10 MG 1 tablet Orally Once a day for 30 day(s) Apr Gabapentin 300 MG TAKE ONE CAPSULE BY MOUTH TWICE A DAY Oral for 30 Trulicity 0.75 MG/0.5ML as directed Subcutaneous weekly for 30 days Apr, Insurance Providers Payer Name Payer Address Payer Phone Insured Name Patient Relati onship to Insured Coverage Start Date Coverage End Date [facility] CORPORATE CLAIMS DEPT [address] [facility] [phone] MAAME MARTINEZ self
--- OUTSIDE RECORDS SUMMARY | 2021-07-06 16:15 | CCD ---
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 Activ e confirmed 219297464 Problem Retained ureteral stent Z96.0 Active confirmed 857387432 Problem Hypertension, unspecified type I10 Active confir med 37594678 Problem 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 Active confirmed 87 44002 Problem Coronary artery disease invo lving [place] coronary artery of [place] heart without angina pectoris I25.10 Active confirmed 107282 000 Problem MSSA (methicillin susceptible Staphylococcus aureus) A49.01 Active confirmed 118641728 Problem Pulmonary nodules/lesions, multiple R91.8 Acti ve confirmed 196144633 Problem Diabetic ketoacidosis withou t coma associated with other specified diabetes mellitus E13.10 Active confirmed 464572682 Problem Iron deficiency anemia, unspecified iron deficiency an emia type D50.9 Active confirmed 58255416 Problem Uncontrolled other specified diabetes mellitus w ith hyperglycemia E13.65 Active confirmed 59514260 Problem Iron deficiency anemia due to chronic blood loss D 50.0 Active confirmed 354151680 Problem Essential hypertension I10 Active confirmed 38017839 Problem Insulin dependent diabetes mellitus type IA E10.9 Active confirmed 14979112 Problem Ulcer of left lower extremity, limited to breakdown of ski n L97.921 Active confirmed 626137690 ALLERGIES No Known Allergies ENCOUNTERS from 1972 to 2021-05-03 Encounter Location Date Provider Diagnosis [place] [address] [facility] [phone] [place] [address] Apr, Jerrikim Carlos IMMUNIZATIONS No Information SOCIAL HISTORY Tobacco Use: Social History Observation Description Date Details (start date - stop date) Never Smoker Sex Assigned At : Social History Observation Description Sex Assigned At Unknown Audit Question Answer Notes Total Score: 0 Interpretation: Alcohol Education Language: Question Answer Notes Languages spoken: Japanese Drug and Alcohol Question Answer Notes Total [...] Information RESULTS No Results REASON FOR VISIT PA Trulicity 0.75mg/0.5ml pen-injectors MEDICAL (GENERAL) HISTORY Type Description Date Medical History diabetes mellitus type 2; insulin depend ent Medical History Hx of MSSA Bacteremia Medical History Hypertension Medical History Hx of Bilateral shoulder abscess Medical History Right cephalic vein nonocclusive thrombo sis, provoked Medical History CAD s/p CABG in 2017 Medical History History of DEANDRE 12/23/2020 Medical [...] Insured Coverage Start Date Coverage End Date [facility] CORPORATE CLAIMS DEPT [address] [place] [phone] MAAME MARTINEZ self
--- OUTSIDE RECORDS SUMMARY | 2021-07-06 16:15 | CCD ---
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 Activ e confirmed 628913072 Problem Retained ureteral stent Z96.0 Active confirmed 039005809 Problem Hypertension, unspecified type I10 Active confir med 56131314 Problem 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 Active confirmed 87 65523 Problem Coronary artery disease invo lving [place] coronary artery of [place] heart without angina pectoris I25.10 Active confirmed 901367 000 Problem MSSA (methicillin susceptible Staphylococcus aureus) A49.01 Active confirmed 447601705 Problem Pulmonary nodules/lesions, multiple R91.8 Acti ve confirmed 191195979 Problem Diabetic ketoacidosis withou t coma associated with other specified diabetes mellitus E13.10 Active confirmed 790074145 Problem Iron deficiency anemia, unspecified iron deficiency an emia type D50.9 Active confirmed 26611646 Problem Uncontrolled other specified diabetes mellitus w ith hyperglycemia E13.65 Active confirmed 09589071 Problem Iron deficiency anemia due to chronic blood loss D 50.0 Active confirmed 749926764 Problem Essential hypertension I10 Active confirmed 26800023 Problem Insulin dependent diabetes mellitus type IA E10.9 Active confirmed 83616239 Problem Ulcer of left lower extremity, limited to breakdown of ski n L97.921 Active confirmed 511400469 ALLERGIES No Known Allergies ENCOUNTERS from 1972 to 2021-06-10 Encounter Location Date [place] [facility] [place] [address] [facility] [address] [phone] [place] [address] Mar, Jerrikim Carlos Type 2 diabetes isauro itus with diabetic polyneuropathy E11.42 ; Hypertension, unspecified type I10 ; Iron deficiency anemia due to chronic blood loss D50.0 and Screening due Z13.9 IMMUNIZATIONS No Information SOCIAL HISTORY Tobacco Use: Social History Observation Description Date Details (start date - stop date) Never Smoker Sex Assigned At : Social History Observation Description Sex Assigned At Unknown Audit Question Answer Notes Total Score: 0 Interpretation: Alcohol Education Language: Question Answer Notes Languages spoken: Malay Drug and Alcohol Question Answer Notes Total Score: 0 Interpretation: No problems reported Alcohol Screening: Question Answer Notes Did you have a drink containing alcohol in the past year? No Points 0 Interpretation Negative Tobacco Use: Question Answer Notes Are you a: never smoker REASON FOR REFERRAL No Information VITAL SIGNS Weight 228 lbs Mar, Height 72 in Mar, BMI 30.92 kg/m2 Mar, Heart Rate 108 /min Mar, Respiratory Rate 18 /min Mar, Temperature 96.9 degrees Fahrenheit Mar, Oximetry 96 Mar, Blood pressure systolic 112 mm Hg Mar, Blood pressure diastolic 70 mm Hg Mar, MEDICATIONS Medication SIG (Take, Route, Frequency, Duration) [...] Information RESULTS No Results REASON FOR VISIT 1 MONTH FOLLOW UP MEDICAL (GENERAL) HISTORY Type Description Date Medical [...] No Information FUNCTIONAL STATUS No Information ASSESSMENTS Encounter Date Diagnosis Assessment Notes Treatment Notes Treatm ent Clinical Notes Mar, Type 2 diabetes mellitus wit h diabetic polyneuropathy (ICD-10 - E11.42) Recently hospitalized for DKA on insulin currently. Checked KYLE 65 and was negative. Will start him on trulicity 0.75 subq weekly for tighter control as his last urine microalbumin was 1000s and Urine cr 52. he has eye referral placed. he does experince peripheral neuropathy from his unctonroleld DM2. will refill his gabapentin. Mar, Hypertension, unspecified type (ICD-10 - I10) Mar, Iron deficiency anemia due to chronic bl ood loss (ICD-10 - D50.0) iron def anemia likely due to blood loss. He had an EGD /colo on 02/16 during which he was found to not have active bleeding, had 4 sigmoid polyps that were removed by hot snare, and also had non-bleeding internal hemorrhoids and recommended to have a follow up colonscopy in 3 months. Mar, Screening due (ICD-10 - Z13.9) PLAN OF TREATMENT Medication Medication Name Sig Start Date Stop Date Lisinopril 10 MG 1 tablet Orally Once a day for 30 day(s) Apr Gabapentin 300 MG TAKE ONE CAPSULE BY MOUTH TWICE A DAY Oral for 30 Trulicity 0.75 MG/0.5ML as directed Subcutaneous weekly for 30 days Apr, Treatment Notes Assessment Notes Clinical Notes Type 2 diabetes mellitus with diabetic polyneuropathy Recently hospitalized for DKA on insulin currently. Checked KYLE 65 and was negative. Will start him on trulicity 0.75 subq weekly for tighter control as his last urine microalbumin was 1000s and Urine cr 52. he has eye referral placed. he does experince peripheral neuropathy from his unctonroleld DM2. will refill his gabapentin. Iron deficiency anemia due to chronic blood loss iron def anemia likely due to blood loss. He had an EGD /colo on 02/16 during which he was found to not have active bleeding, had 4 sigmoid polyps that were removed by hot snare, and also had non-bleeding internal hemorrhoids and recommended to have a follow up colonscopy in 3 months. Treatment Notes Test Name Order Date HIV 1and2 ANTIBODY SCREEN 2021-03-24 HEPC TRACE 2021-03-24 URINE TOTAL PROTEIN 24 HOUR 2021-03-24 URINE CREATININE 24 HOUR 2021-03-24 CBC - Complete Blood Count 2021-03-24 Future Test Test Name Order Date Basic Metabolic Profile (BMP) [id number] Next Appt Details Provider Name:Nicole Carlos, 2021-07-08 1 0:30:00 AM, [address] [facility], , [place], [address], Insurance Providers Payer Name Payer Address Payer Phone Insured Name Patient Relati onship to Insured Coverage Start Date Coverage End Date [employer]PORATE CLAIMS DEPT [address] [facility] [phone] MAAME MARTINEZ self
--- OUTSIDE RECORDS SUMMARY | 2021-07-06 16:15 | CCD ---
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 of 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 Z79.4 Activ e confirmed 903536726 Problem Retained ureteral stent Z96.0 Active confirmed 871947442 Problem Hypertension, unspecified type I10 Active confir med 77744200 Problem 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 Active confirmed 87 75504 Problem Coronary artery disease invo lving [place] coronary artery of [place] heart without angina pectoris I25.10 Active confirmed 089736 000 Problem MSSA (methicillin susceptible Staphylococcus aureus) A49.01 Active confirmed 173822775 Problem Pulmonary nodules/lesions, multiple R91.8 Acti ve confirmed 432223588 Problem Diabetic ketoacidosis withou t coma associated with other specified diabetes mellitus E13.10 Active confirmed 325661867 Problem Iron deficiency anemia, unspecified iron deficiency an emia type D50.9 Active confirmed 31915779 Problem Uncontrolled other specified diabetes mellitus w ith hyperglycemia E13.65 Active confirmed 99730047 Problem Iron deficiency anemia due to chronic blood loss D 50.0 Active confirmed 893467391 Problem Essential hypertension I10 Active confirmed 62984889 Problem Insulin dependent diabetes mellitus type IA E10.9 Active confirmed 60929112 Problem Ulcer of left lower extremity, limited to breakdown of ski n L97.921 Active confirmed 849237541 ALLERGIES No Known Allergies ENCOUNTERS from 1972 to 2021-05-27 Encounter Location Date Provider Diagnosis [facility] Resident [address] [phone] [place] [address] May, Jerrikim Carlos IMMUNIZATIONS No Information SOCIAL HISTORY Tobacco Use: Social History Observation Description Date Details (start date - stop date) Never Smoker Sex Assigned At : Social History Observation Description Sex Assigned At Unknown Audit Question Answer Notes Total Score: 0 Interpretation: Alcohol Education Language: Question Answer Notes Languages spoken: Turkmen Drug and Alcohol Question Answer Notes Total [...] Information RESULTS No Results REASON FOR VISIT No Information MEDICAL (GENERAL) HISTORY Type Description Date Medical [...] directed Subcutaneous weekly for 30 days Apr, Next Appt Details Provider Name:Nicole Carlos, 2021-07-08 1 0:30:00 AM, [address], , [place], [address], Insurance Providers Payer Name Payer Address Payer Phone Insured Name Patient Relati onship to Insured Coverage Start Date Coverage End Date [facility] [employer] CLAIMS DEPT [address] [facility] [phone] MAAME MARTINEZ self
--- OUTSIDE RECORDS SUMMARY | 2021-07-06 16:16 | CCD ---
Author Author [facility] Organization [facility] Address Unknown Phone Unavailable Support Name Relationship Address Phone [place] [address] ELPIDIO THOMSON Next Of Kin [address] [place] [address] [id number] Next Of Kin [address] [place] [address] UE Next Of Kin Unknown Unavailable NEPTALI THOMSON Next Of Kin [address] [place] [address] Elpidio Thomson ECON [address] [place] [address] Unavailable Re-disclosure Warning The records that you are about to access may contain information from federally-assisted alcohol or drug abuse programs. If such information is present, then the following federally mandated warning applies: This information has been disclosed to you from records protected by federal confidentiality rules (42 CFR part 2). The federal rules prohibit you from making any further disclosure of this information unless further disclosure is expressly permitted by the written consent of the person to whom it pertains or as otherwise permitted by 42 CFR part 2. A general authorization for the release of medical or other information is NOT sufficient for this purpose. The Federal rules restrict any use of the information to criminally investigate or prosecute any alcohol or drug abuse patient.The records that you are about to access may contain highly sensitive health information, the redisclosure of which is protected by Article 27-F of the [facility] Public Health law. If you continue you may have access to information: Regarding HIV / AIDS; Provided by facilities licensed or operated by the [facility] Office of Mental Health; or Provided by the [facility] Office for People With Developmental Disabilities. If such information is present, then the following [facility] mandated warning applies: This information has been disclosed to you from confidential records which are protected by state law. State law prohibits you from making any further disclosure of this information without the specific written consent of the person to whom it pertains, or as otherwise permitted by law. Any unauthorized further disclosure in violation of state law may result in a fine or senior care sentence or both. A general authorization for the release of medical or other information is NOT sufficient authorization for further disc losure. Encounters Encounter Providers Location Date Indications Data Source(s ) Unknown [address] [facility] [place] [address] 05/27/2021 12:00:00 AM EDT eCW1 ([facility]) Unknown [address] [facility] [place] [address] 05/02/2021 12:00:00 AM EDT eCW1 ([facility]) Unknown [address] [facility] [place] [address] 04/15/2021 12:00:00 AM EDT eCW1 ([facility]) Unknown [address] [facility] [address] 03/29/2021 12:00:00 AM EDT eCW1 ([facility]) Outpatient [address] [facility] [place] [address] 03/24/2021 12:00:00 AM EDT eCW1 ([facility]) Unknown [address] [facility] [id number] 03/03/2021 12:00:00 AM EDT eCW1 ([facility]) Unknown [address] [facility] [address] 03/03/2021 12:00:00 AM EDT eCW1 ([facility]) (Cysto1) Urology [address] [place] [address] 03/01/2021 12:00:00 AM EDT eCW1 ([facility]) Unknown [address] [facility] [id number] 02/25/2021 12:00:00 AM EDT eCW1 ([facility]) [place] [address] [facility] [place] [address] 02/24/2021 12:00:00 AM EDT eCW1 ([facility]) [place] [address] [facility] [place] [address] 02/24/2021 12:00:00 AM EDT eCW1 ([facility]) Out[place] [address] [facility] [place] [address] 02/24/2021 12:00:00 AM EDT eCW1 ([facility]) Unknown [address] [facility] [place] [address] 02/14/2021 12:00:00 AM EDT eCW1 ([facility]) [place] [address] [facility] [place] [address] 02/09/2021 12:00:00 AM EDT eCW1 ([facility]) Immunizations Vaccine Date Status Description Data Source(s) COVID-19 VACCINE Moderna 12/15/2020 12:00:00 AM EDT completed [facility] Vaccine Series Complete: YESThis Data wa s Submitted to [facility] Via [facility]. COVID-19 VACCINE Moderna 11/17/2020 12:00:00 AM EST completed [facility] Vaccine Series Complete: NOThis Data was Submitted to [facility] Via [facility]. Medications Medication Brand Name Start Date Product Form Dose Route Admi nistrative Instructions Pharmacy Instructions Status Indications Reaction Description Data Source(s) 300 mg 04/15/2021 12:00:00 AM EDT capsule 60 TAKE ONE CAPSULE BY MOUTH TWICE A DAY TAKE ONE CAPSULE BY MOUTH TWICE A DAY SOLD: 04/16/2021 [facility] 10 mg 04/15/2021 12:00:00 AM EDT tablet 30 TAKE ONE TABLET BY MOUTH EVERY DAY TAKE ONE TABLET BY MOUTH EVERY DAY SOLD: 04/16/2021 [facility] 0.5 ML dulaglutide 1.5 MG/ML Auto-Injector [Trulicity] Trulicity 0.75 MG/0.5ML Trulicity 0.75 MG/0.5ML 04/14/2021 12:00:00 AM EDT active Trulicity 0.75 MG/0.5ML eCW1 ([facility]) Lisinopril 10 MG Oral Tablet Lisinopril 10 MG 04/14/2021 12:00:00 A M EDT 1.0 {tablet} active Lisinopril 10 MG eCW1 ( [facility]) 0.5 ML dulaglutide 1.5 MG/ML Auto-Injector [Trulicity] Trulicity 0.75 MG/0.5ML Trulicity 0.75 MG/0.5ML 04/14/2021 12:00:00 AM EDT active Trulicity 0.75 MG/0.5ML eCW1 ([facility]) 0.5 ML dulaglutide 1.5 MG/ML Auto-Injector [Trulicity] Trulicity 0.75 MG/0.5ML Trulicity 0.75 MG/0.5ML 04/14/2021 12:00:00 AM EDT active Trulicity 0.75 MG/0.5ML eCW1 ([facility]) Lisinopril 10 MG Oral Tablet Lisinopril 10 MG 04/14/2021 12:00:00 A M EDT 1.0 {tablet} active Lisinopril 10 MG eCW1 ( [facility]) Lisinopril 10 MG Oral Tablet Lisinopril 10 MG 04/14/2021 12:00:00 A M EDT 1.0 {tablet} active Lisinopril 10 MG eCW1 ( [facility]) Lisinopril 10 MG Oral Tablet Lisinopril 10 MG 04/14/2021 12:00:00 A M EDT 1.0 {tablet} active Lisinopril 10 MG eCW1 ( [facility]) 0.5 ML dulaglutide 1.5 MG/ML Auto-Injector [Trulicity] Trulicity 0.75 MG/0.5ML Trulicity 0.75 MG/0.5ML 04/14/2021 12:00:00 AM EDT active Trulicity 0.75 MG/0.5ML eCW1 ([facility]) Polysaccharide iron complex 150 MG Oral Capsule [Ferre x-150] Ferrex 150 150 MG Ferrex 150 150 MG 02/25/2021 12:00:00 AM EDT 1.0 {capsule} active Ferrex 150 150 MG eCW1 ([facility]) Polysaccharide iron complex 150 MG Oral Capsule [Ferre x-150] Ferrex 150 150 MG Ferrex 150 150 MG 02/25/2021 12:00:00 AM EDT 1.0 {capsule} active Ferrex 150 150 MG eCW1 ([facility]) Polysaccharide iron complex 150 MG Oral Capsule [Ferre x-150] Ferrex 150 150 MG Ferrex 150 150 MG 02/25/2021 12:00:00 AM EDT 1.0 {capsule} active Ferrex 150 150 MG eCW1 ([facility]) Polysaccharide iron complex 150 MG Oral Capsule [Ferre x-150] Ferrex 150 150 MG Ferrex 150 150 MG 02/25/2021 12:00:00 AM EDT 1.0 {capsule} active Ferrex 150 150 MG eCW1 ([facility]) Polysaccharide iron complex 150 MG Oral Capsule [Ferre x-150] Ferrex 150 150 MG Ferrex 150 150 MG 02/25/2021 12:00:00 AM EDT 1.0 {capsule} active Ferrex 150 150 MG eCW1 ([facility]) Polysaccharide iron complex 150 MG Oral Capsule [Ferre x-150] Ferrex 150 150 MG Ferrex 150 150 MG 02/25/2021 12:00:00 AM EDT 1.0 {capsule} active Ferrex 150 150 MG eCW1 ([facility]) Polysaccharide iron complex 150 MG Oral Capsule [Ferre x-150] Ferrex 150 150 MG Ferrex 150 150 MG 02/25/2021 12:00:00 AM EDT 1.0 {capsule} active Ferrex 150 150 MG eCW1 ([facility]) Polysaccharide iron complex 150 MG Oral Capsule [Ferre x-150] Ferrex 150 150 MG Ferrex 150 150 MG 02/25/2021 12:00:00 AM EDT 1.0 {capsule} active Ferrex 150 150 MG eCW1 ([facility]) Polysaccharide iron complex 150 MG Oral Capsule [Ferre x-150] Ferrex 150 150 MG Ferrex 150 150 MG 02/25/2021 12:00:00 AM EDT 1.0 {capsule} active Ferrex 150 150 MG eCW1 ([facility]) Polysaccharide iron complex 150 MG Oral Capsule [Ferre x-150] Ferrex 150 150 MG Ferrex 150 150 MG 02/25/2021 12:00:00 AM EDT 1.0 {capsule} active Ferrex 150 150 MG eCW1 ([facility]) Polysaccharide iron complex 150 MG Oral Capsule [Ferre x-150] Ferrex 150 150 MG Ferrex 150 150 MG 02/25/2021 12:00:00 AM EDT 1.0 {capsule} active Ferrex 150 150 MG eCW1 ([facility]) Hydralazine Hydrochloride 25 MG Oral Tablet HYDRALAZINE HCL 02/23/2021 12:00:00 AM EDT tablet 120 TAKE ONE TABLET BY MOUTH [place] RY 6 HOURS TAKE ONE TABLET BY MOUTH EVERY 6 HOURS SOLD: 02/25/2021 [facility] 5 mg 02/23/2021 12:00:00 AM EDT tablet 60 TAKE ONE TABLET BY MOUTH TWICE A DAY TAKE ONE TABLET BY MOUTH TWICE A DAY SOLD: 02/25/2021 [facility] 25 mg 02/23/2021 12:00:00 AM EDT tablet 120 TAKE TWO TABLETS BY MOUTH TWICE A DAY TAKE TWO TABLETS BY MOUTH TWICE A DAY SOLD: 02/25/2021 [facility] 75 mg 02/14/2021 12:00:00 AM EDT tablet 30 TAKE ONE TABLET BY MOUTH EVERY DAY TAKE ONE TABLET BY MOUTH EVERY DAY SOLD: 02/17/2021 [facility] 100 mg 02/14/2021 12:00:00 AM EDT capsule 60 TAKE ONE CAPSULE BY MOUTH TWICE A DAY TAKE ONE CAPSULE BY MOUTH TWICE A DAY SOLD: 02/17/2021 [facility] 1 gram 02/14/2021 12:00:00 AM EDT tablet 42 TAKE 1 TABLET BY MOUTH BEFORE MEALS TAKE 1 TABLET BY MOUTH BEFORE MEALS SOLD: 02/17/2021 [facility] 80 mg 02/14/2021 12:00:00 AM EDT tablet 30 TAKE ONE TABLET BY MOUTH EVERY DAY TAKE ONE TABLET BY MOUTH EVERY DAY SOLD: 02/17/2021 [facility] BD Insulin Syringe U-100 1 ML BD Insulin Syringe U-100 1 ML 02/09/2021 12:00:00 AM EDT active BD Insulin Syring e U-100 1 ML eCW1 ([facility]) BD Insulin Syringe U-100 1 ML BD Insulin Syringe U-100 1 ML 02/09/2021 12:00:00 AM EDT active BD Insulin Syring e U-100 1 ML eCW1 ([facility]) BD Insulin Syringe U-100 1 ML BD Insulin Syringe U-100 1 ML 02/09/2021 12:00:00 AM EDT active BD Insulin Syring e U-100 1 ML eCW1 ([facility]) BD Insulin Syringe U-100 1 ML BD Insulin Syringe U-100 1 ML 02/09/2021 12:00:00 AM EDT active BD Insulin Syring e U-100 1 ML eCW1 ([facility]) BD Insulin Syringe U-100 1 ML BD Insulin Syringe U-100 1 ML 02/09/2021 12:00:00 AM EDT active BD Insulin Syring e U-100 1 ML eCW1 ([facility]) BD Insulin Syringe U-100 1 ML BD Insulin Syringe U-100 1 ML 02/09/2021 12:00:00 AM EDT active BD Insulin Syring e U-100 1 ML eCW1 ([facility]) BD Insulin Syringe U-100 1 ML BD Insulin Syringe U-100 1 ML 02/09/2021 12:00:00 AM EDT active BD Insulin Syring e U-100 1 ML eCW1 ([facility]) BD Insulin Syringe U-100 1 ML BD Insulin Syringe U-100 1 ML 02/09/2021 12:00:00 AM EDT active BD Insulin Syring e U-100 1 ML eCW1 ([facility]) BD Insulin Syringe U-100 1 ML BD Insulin Syringe U-100 1 ML 02/09/2021 12:00:00 AM EDT active BD Insulin Syring e U-100 1 ML eCW1 ([facility]) BD Insulin Syringe U-100 1 ML BD Insulin Syringe U-100 1 ML 02/09/2021 12:00:00 AM EDT active BD Insulin Syring e U-100 1 ML eCW1 ([facility]) BD Insulin Syringe U-100 1 ML BD Insulin Syringe U-100 1 ML 02/09/2021 12:00:00 AM EDT active BD Insulin Syring e U-100 1 ML eCW1 ([facility]) BD Insulin Syringe U-100 1 ML BD Insulin Syringe U-100 1 ML 02/09/2021 12:00:00 AM EDT active BD Insulin Syring e U-100 1 ML eCW1 ([facility]) BD Insulin Syringe U-100 1 ML BD Insulin Syringe U-100 1 ML 02/09/2021 12:00:00 AM EDT active BD Insulin Syring e U-100 1 ML eCW1 ([facility]) BD Insulin Syringe U-100 1 ML BD Insulin Syringe U-100 1 ML 02/09/2021 12:00:00 AM EDT active BD Insulin Syring e U-100 1 ML eCW1 ([facility]) 100 unit/mL 02/01/2021 12:00:00 AM EDT solution 30 INJECT 35 UNITS SUBCUTANEOUSLY TWO TIMES A DAY INJECT 35 UNITS SUBCUTANEOUSLY TWO TIMES A DAY SOLD: 02/02/2021 [facility] 1 billion cell- 250 mg 01/31/2021 12:00:00 AM EDT tablet 100 TAKE TWO TABLETS BY MOUTH TWICE A DAY TAKE TWO TABLETS BY MOUTH TWICE A DAY SOLD: 02/02/2021 [facility] 10 mg 01/31/2021 12:00:00 AM EDT tablet 30 TAKE ONE TABLET BY MOUTH EVERY DAY TAKE ONE TABLET BY MOUTH EVERY DAY SOLD: 01/31/2021 [facility] 5 mg 01/31/2021 12:00:00 AM EDT tablet 60 TAKE 2 TABLETS BY MOUTH TWO TIMES A DAY FOR 3 DAYS THEN TAKE ONE TABLET BY MOUTH TWICE A DAY THEREAFTER TAKE 2 TABLETS BY MOUTH TWO TIMES A DAY FOR 3 DAYS THEN TAKE ONE TABLET BY MOUTH TWICE A DAY THEREAFTER SOLD: 01/31/2021 [facility] 0.4 mg 01/31/2021 12:00:00 AM EDT capsule 30 TAKE ONE CAPSULE BY MOUTH EVERY DAY TAKE ONE CAPSULE BY MOUTH EVERY DAY SOLD: 01/31/2021 [facility] 300 mg 01/31/2021 12:00:00 AM EDT capsule 60 TAKE ONE CAPSULE BY MOUTH TWICE A DAY TAKE ONE CAPSULE BY MOUTH TWICE A DAY SOLD: 01/31/2021 [facility] 10 mg 01/31/2021 12:00:00 AM EDT tablet 60 TAKE TWO TABLETS BY MOUTH EVERY DAY TAKE TWO TABLETS BY MOUTH EVERY DAY SOLD: 01/31/2021 [facility] pantoprazole 40 MG Delayed Release Oral Tablet PANTOPRAZOLE SODIUM 01/31/2021 12:00:00 AM EDT tablet,delayed release (DR/EC) 30 T WINTER ONE TABLET BY MOUTH EVERY DAY TAKE ONE TABLET BY MOUTH EVERY DAY SOLD: 01/31/2021 [facility] Hydralazine Hydrochloride 25 MG Oral Tablet HYDRALAZINE HCL 01/31/2021 12:00:00 AM EDT tablet 120 TAKE ONE TABLET BY MOUTH [place] R[place] 6 HOURS TAKE ONE TABLET BY MOUTH EVERY 6 HOURS SOLD: 01/31/2021 [facility] 81 mg 01/31/2021 12:00:00 AM EDT tablet,delayed release (DR/EC) 30 TAKE ONE TABLET BY MOUTH EVERY DAY TAKE ONE TABLET BY MOUTH EVERY DAY SOLD: 01/31/2021 [facility] 25 mg 01/31/2021 12:00:00 AM EDT tablet 120 TAKE TWO TABLETS BY MOUTH TWICE A DAY TAKE TWO TABLETS BY MOUTH TWICE A DAY SOLD: 01/31/2021 [facility] 300 mg 11/07/2020 12:00:00 AM EST capsule 14 TAKE ONE CAPSULE BY MOUTH TWICE A DAY FOR 7 DAYS TAKE ONE CAPSULE BY MOUTH TWICE A DAY FOR 7 DAYS SOLD: 11/07/2020 [facility] Sulfamethoxazole 800 MG / Trimethoprim 160 MG Oral Tab let 800-160 mg SULFAMETHOXAZOLE/TRIMETHOPRIM 07/11/2020 12:00:00 AM EDT tablet 20 TAKE ONE TABLET BY MOUTH EVERY 12 HOURS TAKE ONE TABLET BY MOUTH EVERY 12 HOURS SOLD: 07/11/2020 [facility] Insurance Providers Payer name Policy type / Coverage type Policy ID Covered libertarian ID Covered libertarian's relationship to mancera Policy Mancera Plan Information LETY [id number] SP [id number] SP [id number] SELF PAY ONLY [id number] SP [id number] Problems, Conditions, and Diagnoses Code Display Name Description Problem Type Effective Dates Data Source(s) D50.9 [id number] Iron deficiency anemia, unspecif ied iron deficiency anemia type Problem 04/14/2021 12:00:00 AM EDT eCW1 ([facility]) E13.10 [id number] Diabetic ketoacidosi s without coma associated with other specified diabetes mellitus Problem 03/03/2021 12:00:00 AM EDT eCW1 ([facility]) Z96.0 Retained ureteral stent Retained ureteral stent Proble m 03/01/2021 12:00:00 AM EDT eCW1 ([facility]) L97.921 [id number] Ulcer of left lower extremity, l imited to breakdown of skin Problem 02/25/2021 12:00:00 AM EDT eCW1 ([facility]) E10.9 [id number] Insulin dependent diabetes mellitus type IA Problem 02/25/2021 12:00:00 AM EDT eCW1 ([facility]) I10 [id number] Essential hypertension Problem 02/25/2021 12 :00:00 AM EDT eCW1 ([facility]) D50.0 [id number] Iron deficiency anemia due to chronic blo od loss Problem 02/25/2021 12:00:00 AM EDT eCW1 ([facility]) E13.65 [id number] Uncontrolled other s pecified diabetes mellitus with hyperglycemia Problem 02/25/2021 12:00:00 AM EDT eCW1 ([facility]) R91.8 [id number] Pulmonary nodules/lesions, multiple Probl em 02/25/2021 12:00:00 AM EDT eCW1 ([facility]) I25.10 [id number] 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 Problem 02/25/2021 12:00:00 AM EDT eCW1 ([facility]) A49.01 [id number] MSSA (methicillin susceptible Staphylococ cus aureus) Problem 02/24/2021 12:00:00 AM EDT eCW1 ([facility]) N41.2 [id number] Prostatic abscess Problem 02/24/2021 12:00:0 0 AM EDT eCW1 ([facility]) E13.9 [id number] Diabetes 1.5, managed as type 1 Problem 02/24/2021 12:00:00 AM EDT eCW1 ([facility]) R93.[id number] chest [address] Problem 02/10/2021 12:00:00 AM EDT eCW1 ([facility]) I10 [id number] Hypertension, unspecified type Problem 02/09 12:00:00 AM EDT eCW1 ([facility]) 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 Proble m 02/09/2021 12:00:00 AM EDT eCW1 ([facility]) E11.42 [id number] Type 2 diabetes mellitus with diabetic po lyneuropathy Problem 02/09/2021 12:00:00 AM EDT eCW1 ([facility]) L97.329 [id number] Skin ulcer of malleolar area of left ankl e Problem 02/09/2021 12:00:00 AM EDT eCW1 ([facility]) Surgeries/Procedures Procedure Description Date Indications Data Source(s) Med: Lidocaine Jelly 2% 6ml Intravesically (Glydo) 03/01/2021 12:00:00 AM EDT eCW1 ([facility]) Endoscopy Upper GI Complex Diagnostic 02/16/2021 12:00 :00 AM EDT MEDENT ([facility], ) Colonoscopy W/ Poly 02/16/2021 12:00:00 AM EDT MEDENT ([facility], ) Results ID Date Data Source [id number] AUTOANTIBODY 03/08/2021 12:00:00 AM EDT eCW1 ([facility]) Name Value Range Interpretation Code Description Data Michela rce(s) Supporting Document(s) <5.0 0.0-5.0 KYLE-65 AUTOANTIBODY eCW1 ([facility]) ID Date Data Source [id number] 03/08/2021 12:00:00 AM EDT eCW1 ([facility]) Name Value Range Interpretation Code Description Data Mcihela rce(s) Supporting Document(s) Microalbumin/Creatinine [Mass Ratio] in Urine 51.6 CREATININE, URINE eCW1 ([facility]) Albumin/Creatinine [Mass Ratio] in Urine 1120.0 MALB URINE SIEMENS eCW1 ([facility]) Microalbumin/Creatinine [Ratio] in Urine 2170.5 0.0-30.0 MANDO/CREAT RATIO eCW1 ([facility]) ID Date Data Source LIPID PANEL (CARDIAC RISK) 03/08/2021 12:00:00 AM EDT eCW1 ( [facility]) Name Value Range Interpretation Code Description Data Michela rce(s) Supporting Document(s) Triglyceride [Mass/volume] in Serum or Plasma by calculation 132 <150 TRIGLYCERIDES LEVEL eCW1 ([facility]) Cholesterol in HDL [Moles/volume] in Serum or Plasma 50 >40 HDL CHOLESTEROL eCW1 ([facility]) Cholesterol [Moles/volume] in Serum or Plasma 173 <200 CHOLESTEROL LEVEL eCW1 ([facility]) Cholesterol in LDL [Mass/volume] in Serum or Plasma by calculation 97 <100 LDL CHOLESTEROL eCW1 ([facility]) 123 NON-HDL-C eCW1 ([facility]) 3.460 <5 CHOLESTEROL RISK RATIO eCW1 ([facility]) ID Date Data Source CBC with Differential 02/24/2021 12:00:00 AM EDT eCW1 ([facility]) Name Value Range Interpretation Code Description Data Michela rce(s) Supporting Document(s) 9.5 4.0-10.0 WHITE BLOOD COUNT eCW1 ([facility]) 10.6 13.5-17.5 HEMOGLOBIN eCW1 ([facility]) 3.81 4.30-6.10 RED BLOOD COUNT eCW1 ([facility]) 34.0 42.0-52.0 HEMATOCRIT eCW1 ([facility]) 89.2 80.0-96.0 MEAN CORPUSCULAR VOLUME e CW1 ([facility]) 27.8 27.0-33.0 MEAN CORPUSCULAR HEMOGLOB IN eCW1 ([facility]) 14.6 11.5-14.5 RED CELL DISTRIBUTION WID TH eCW1 ([facility]) 321 150-450 PLATELET COUNT, AUTOMATED eCW1 ([facility]) 31.2 32.0-36.5 MEAN CORPUSCULAR HGB CONC eCW1 ([facility]) 62.0 36.0-66.0 NEUTROPHILS % eCW1 ([facility]) 3.5 0.0-3.0 EOS % eCW1 ([facility]) 10.2 2.0-8.0 MONO % eCW1 ([facility]) 23.2 24.0-44.0 LYMPH % eCW1 ([facility]) 1.0 0.0-0.8 MONO # eCW1 ([facility]) 0.8 0.0-1.0 BASO % eCW1 ([facility]) 2.2 1.5-5.0 LYMPH # eCW1 ([facility]) 5.9 1.5-8.5 NEUTROPHILS # eCW1 ([facility]) 0.3 0.0-0.5 EOS # eCW1 ([facility]) 0.1 0.0-0.2 BASO # eCW1 ([facility]) ID Date Data Source [id number] 02/14/2021 01:24:00 PM EDT [facility], ) Name Value Range Interpretation Code Description Data Michela rce(s) Supporting Document(s) Influenza A Amplification Laboratory test result Normal (applies to non- numeric results) MEDENT ([facility], ) Negative results do not preclude influen za or RSV virus infection and should not be used as the sole basis for treatment or other patient management decisions. Laboratory test finding (navigational concept) Laboratory test r esult Normal (applies to non-numeric results) MEDENT ([facility]) A false negative result may occur if a s pecimen is improperly collected, transported or handled. False negative results may also occur if inadequate numbers of organisms are present in the specimen. As with any molecular test, mutations within the target regions of [employer] SARS-CoV-2 could affect primer and/or probe binding resulting in failure to detect the presence of virus. This test cannot rule out diseases caused by other bacterial or viral pathogens. DISCLAIMER: Testing was performed using the [employer] SARS-CoV-2 test. This test was developed and its performance characteristics determined by [employer]. This test has not been FDA cleared or approved. This test has been authorized by FDA under an Emergency Use Authorization (EUA). This test is only authorized for the duration of time the declaration that circumstances exist justifying the authorization of the emergency use of in vitro diagnostic tests for detection of SARS-CoV-2 virus and/or diagnosis of COVID-19 infection under section 564(b)(1) of the Act, 21 U.S.C. 360bbb-3(b)(1), unless the authorization is terminated or revoked sooner. Influenza B Amplification Laboratory test result Normal (applies to non- numeric results) MEDENT ([facility], ) Negative results do not preclude influen za or RSV virus infection and should not be used as the sole basis for treatment or other patient management decisions. RSV Amplification Laboratory test result Normal (applies to non-numeric results) MEDENT ([facility], ) Negative results do not preclude influen za or RSV virus infection and should not be used as the sole basis for treatment or other patient management decisions. ID Date Data Source [id number] 02/14/2021 01:24:00 PM EDT [facility] Name Value Range Interpretation Code Description Data Michela rce(s) Supporting Document(s) SARS coronavirus 2 RNA [Presence] in Res piratory specimen by TRACE with probe detection NEGATIVE [facility] This lab was ordered by [facility] a nd reported by [facility]. ID Date Data Source [id number] 02/11/2021 04:10:00 AM EDT [facility] Name Value Range Interpretation Code Description Data Michela rce(s) Supporting Document(s) SARS coronavirus 2 RNA [Presence] in Res piratory specimen by TRACE with probe detection NEGATIVE [facility] This lab was ordered by [facility] a nd reported by [facility]. ID Date Data Source [id number] SEDIMENTATION RATE 02/09/2021 12:00:00 AM EDT eC W1 ([facility]) Name Value Range Interpretation Code Description Data Michela rce(s) Supporting Document(s) 98 0-15 ERYTHROCYTE SEDIMENTATION RATE eCW1 ([facility]) ID Date Data Source C REACTIVE PROTEIN QUANTITATIV (At [facility]) 02/09/2021 12:00 :00 AM EDT eCW1 ([facility]) Name Value Range Interpretation Code Description Data Michela rce(s) Supporting Document(s) 3.81 0.00-0.30 C REACTIVE PROTEIN QUANTI TATIV eCW1 ([facility]) ID Date Data Source Comprehensive Metabolic Profile (CMP) 02/09/2021 12:00:00 AM EDT eCW1 ([facility]) Name Value Range Interpretation Code Description Data Michela rce(s) Supporting Document(s) 23 7-18 BLOOD UREA NITROGEN eCW1 ([facility]) 105 70-100 GLUCOSE, FASTING eCW1 ([facility]) 1.35 0.70-1.30 CREATININE FOR GFR eCW1 ([facility]ly [facility]) 141 136-145 SODIUM LEVEL eCW1 ([facility]) > 60.0 >60 GLOMERULAR FILTRATION RATE eCW 1 ([facility]) 27 21-32 CARBON DIOXIDE LEVEL eCW1 ([facility]) 4.0 3.5-5.1 POTASSIUM SERUM eCW1 ([facility]) 8.3 8.5-10.1 CALCIUM LEVEL eCW1 ([facility]) 109 98-107 CHLORIDE LEVEL eCW1 ([facility]) 15 7-37 AST/SGOT eCW1 ([facility]) 78 45-117 ALKALINE PHOSPHATASE eCW1 ([facility]) 12 12-78 ALT/SGPT eCW1 ([facility]) 0.3 0.2-1.0 BILIRUBIN,TOTAL eCW1 ([facility]) 2.4 3.2-5.2 ALBUMIN eCW1 ([facility]) 7.7 6.4-8.2 TOTAL PROTEIN eCW1 ([facility]) 0.5 ALBUMIN/GLOBULIN RATIO eCW1 ([facility]) ID Date Data Source CBC - Complete Blood Count 02/09/2021 12:00:00 AM EDT eCW1 ( [facility]) Name Value Range Interpretation Code Description Data Michela rce(s) Supporting Document(s) 3.40 4.30-6.10 RED BLOOD COUNT eCW1 ([facility]) 9.4 4.0-10.0 WHITE BLOOD COUNT eCW1 ([facility]) 30.9 42.0-52.0 HEMATOCRIT eCW1 ([facility]) 9.3 13.5-17.5 HEMOGLOBIN eCW1 ([facility]) 90.9 80.0-96.0 MEAN CORPUSCULAR VOLUME e CW1 ([facility]) 30.1 32.0-36.5 MEAN CORPUSCULAR HGB CONC eCW1 ([facility]) 27.4 27.0-33.0 MEAN CORPUSCULAR HEMOGLOB IN eCW1 ([facility]) 347 150-450 PLATELET COUNT, AUTOMATED eCW1 ([facility]) 14.3 11.5-14.5 RED CELL DISTRIBUTION WID TH eCW1 ([facility]) ID Date Data Source [id number] 01/21/2021 11:51:00 PM EDT [facility] Name Value Range Interpretation Code Description Data Michela rce(s) Supporting Document(s) SARS-CoV-2 (COVID 19) NEGATIVE - SARS-CoV-2 (COVID19) [facility] This lab was ordered by [facility] a nd reported by [facility]. ID Date Data Source [id number] 12/31/2020 11:04:00 AM EDT [facility] Name Value Range Interpretation Code Description Data Michela rce(s) Supporting Document(s) SARS coronavirus 2 RNA [Presence] in Res piratory specimen by TRACE with probe detection NEGATIVE [facility] This lab was ordered by [facility] a nd reported by [facility]. ID Date Data Source [id number] 12/23/2020 11:33:00 AM EDT [facility] Name Value Range Interpretation Code Description Data Michela rce(s) Supporting Document(s) SARS-CoV-2 (COVID 19) NEGATIVE - SARS-CoV-2 (COVID19) [facility] This lab was ordered by [facility] a nd reported by [facility]. Procedure Social History Code Duration Value Status Description Data Source(s ) Smoking 03/24/2021 12:00:00 AM EDT Never Smoker completed Never S moker eCW1 ([facility]) Smoking 03/24/2021 12:00:00 AM EDT Never Smoker completed Never S moker eCW1 ([facility]) Smoking 03/24/2021 12:00:00 AM EDT Never Smoker completed Never S moker eCW1 ([facility]) Smoking 03/24/2021 12:00:00 AM EDT Never Smoker completed Never S moker eCW1 ([facility]) Smoking 03/24/2021 12:00:00 AM EDT Never Smoker completed Never S moker eCW1 ([facility]) Smoking 03/24/2021 12:00:00 AM EDT Never Smoker completed Never S moker eCW1 ([facility]) Smoking 03/01/2021 12:00:00 AM EDT Never Smoker completed Never S moker eCW1 ([facility]) Smoking 03/01/2021 12:00:00 AM EDT Never Smoker completed Never S moker eCW1 ([facility]) Smoking 03/01/2021 12:00:00 AM EDT Never Smoker completed Never S moker eCW1 ([facility]) Smoking 03/01/2021 12:00:00 AM EDT Never Smoker completed Never S moker eCW1 ([facility]) Smoking 03/01/2021 12:00:00 AM EDT Never Smoker completed Never S moker eCW1 ([facility]) Smoking 02/24/2021 12:00:00 AM EDT Never Smoker completed Never S moker eCW1 ([facility]) Smoking 02/10/2021 12:00:00 AM EDT Never Smoker completed Never S moker eCW1 ([facility]) Smoking 02/10/2021 12:00:00 AM EDT Never Smoker completed Never S moker eCW1 ([facility]) Vital Signs ID Date Data Source UNK Name Value Range Interpretation Code Description Data Source(s) Body weight 228 [lb_av] 228 [lb_av] eCW1 ([facility]) Body height 72 [in_i] 72 [in_i] eCW1 ([facility]) Body mass index (BMI) [Ratio] 30.92 kg/m2 30.92 kg/m2 eCW1 ([facility]) Heart rate 108 /min 108 /min eCW1 ([facility]) Respiratory rate 18 /min 18 /min eCW1 ([facility]) Body temperature 96.9 [degF] 96.9 [degF] eCW1 ( [facility]) Systolic blood pressure 112 mm[Hg] 112 mm[Hg] e CW1 ([facility]) Diastolic blood pressure 70 mm[Hg] 70 mm[Hg] eCW1 ([facility]) Body weight 212 [lb_av] 212 [lb_av] eCW1 ([facility]) Body height 72 [in_i] 72 [in_i] eCW1 ([facility]) Body mass index (BMI) [Ratio] 28.75 kg/m2 28.75 kg/m2 eCW1 ([facility]) Heart rate 100 /min 100 /min eCW1 ([facility]) Respiratory rate 19 /min 19 /min eCW1 ([facility]) Body temperature 98.0 [degF] 98.0 [degF] eCW1 ( [facility]) Systolic blood pressure 141 mm[Hg] 141 mm[Hg] e CW1 ([facility]) Diastolic blood pressure 94 mm[Hg] 94 mm[Hg] eCW1 ([facility]) Body weight 212 [lb_av] 212 [lb_av] eCW1 ([facility]) Diastolic blood pressure 64 mm[Hg] 64 mm[Hg] eCW1 ([facility]) Body height 72 [in_i] 72 [in_i] eCW1 ([facility]) Body mass index (BMI) [Ratio] 28.75 kg/m2 28.75 kg/m2 eCW1 ([facility]) Heart rate 88 /min 88 /min eCW1 ([facility]) Respiratory rate 18 /min 18 /min eCW1 ([facility]) Body temperature 97.4 [degF] 97.4 [degF] eCW1 ( [facility]) Systolic blood pressure 104 mm[Hg] 104 mm[Hg] e CW1 ([facility]) Body weight 212 [lb_av] 212 [lb_av] eCW1 ([facility]) Body height 72 [in_i] 72 [in_i] eCW1 ([facility]) Body mass index (BMI) [Ratio] 28.75 kg/m2 28.75 kg/m2 eCW1 ([facility]) Heart rate 88 /min 88 /min eCW1 ([facility]) Respiratory rate 18 /min 18 /min eCW1 ([facility]) Body temperature 97.4 [degF] 97.4 [degF] eCW1 ( [facility]) Systolic blood pressure 104 mm[Hg] 104 mm[Hg] e CW1 ([facility]) Diastolic blood pressure 64 mm[Hg] 64 mm[Hg] eCW1 ([facility]) Body weight 224 [lb_av] 224 [lb_av] eCW1 ([facility]) Body height 72 [in_i] 72 [in_i] eCW1 ([facility]) Body mass index (BMI) [Ratio] 30.38 kg/m2 30.38 kg/m2 eCW1 ([facility]) Heart rate 82 /min 82 /min eCW1 ([facility]) Respiratory rate 18 /min 18 /min eCW1 ([facility]) Body temperature 97.1 [degF] 97.1 [degF] eCW1 ( [facility]) Systolic blood pressure 122 mm[Hg] 122 mm[Hg] e CW1 ([facility]) Diastolic blood pressure 80 mm[Hg] 80 mm[Hg] eCW1 ([facility]) Body temperature 96.9 [degF] 96.9 [degF] MEDENT ([facility]) Body height 71 [in_i] 71 [in_i] MEDENT ([facility]) 5'11" Body weight 220.00 [lb_av] 220.00 [lb_av] MEDEN T ([facility]) Body mass index (BMI) [Ratio] 30.7 kg/m2 30.7 k g/m2 MEDENT ([facility]) Patient Treatment Plan of Care Planned Activity Planned Date Details Description Data Source (s) 0.5 ML dulaglutide 1.5 MG/ML Auto-Injector [Trulicity] 04/14/2021 12:00:00 AM EDT eCW1 ([facility]) Lisinopril 10 MG Oral Tablet 04/14/2021 12:00:00 AM EDT eCW1 ([facility]) 0.5 ML dulaglutide 1.5 MG/ML Auto-Injector [Trulicity] 04/14/2021 12:00:00 AM EDT eCW1 ([facility]) Lisinopril 10 MG Oral Tablet 04/14/2021 12:00:00 AM EDT eCW1 ([facility]) 0.5 ML dulaglutide 1.5 MG/ML Auto-Injector [Trulicity] 04/14/2021 12:00:00 AM EDT eCW1 ([facility]) Lisinopril 10 MG Oral Tablet 04/14/2021 12:00:00 AM EDT eCW1 ([facility]) 0.5 ML dulaglutide 1.5 MG/ML Auto-Injector [Trulicity] 04/14/2021 12:00:00 AM EDT eCW1 ([facility]) Lisinopril 10 MG Oral Tablet 04/14/2021 12:00:00 AM EDT eCW1 ([facility]) BD Insulin Syringe U-100 1 ML 02/09/2021 12:00:00 AM EDT eCW1 ([facility]) BD Insulin Syringe U-100 1 ML 02/09/2021 12:00:00 AM EDT eCW1 ([facility])
[2021-07-06] MEDS ORDERED: TETRACAINE 0.5% OPHTH SOLN 4ML OU ONE (17:30)
[2021-07-06] MEDS ORDERED: FLUORESCEIN OPHTH 1 MG STRIP OU ONE (17:30)
--- OUTSIDE RECORDS SUMMARY | 2021-07-06 18:25 | CCD ---
Author Author [facility] Organization [facility] Address Unknown Phone Unavailable Support Name Relationship Address Phone [place] [address] ELPIDIO THOMSON Next Of Kin [address] [place] [address] KFCWATN Next Of Kin [address] [place] [address] UE Next Of Kin Unknown Unavailable NEPTALI THOMSON Next Of Kin [address] [place] [address] Elpidio Thomson ECON [address] [place] [address] Unavailable Re-disclosure Warning The records that you [...] is protected by Article 27-F of the [facility] Public Health law. If you continue you may have access to information: Regarding HIV / AIDS; Provided by facilities licensed or operated by the [facility] Office of Mental Health; or Provided by the [facility] Office for People With Developmental Disabilities. If such information is present, then the following [facility] mandated warning applies: This information has been [...] Date Indications Data Source(s ) Unknown [address] [facility] [place] [address] 05/27/2021 12:00:00 AM EDT eCW1 ([facility]) Unknown [address] [facility] [place] [address] 05/02/2021 12:00:00 AM EDT eCW1 ([facility]) Unknown [address] [facility] [place] [address] 04/15/2021 12:00:00 AM EDT eCW1 ([facility]) Unknown [address] [facility] [address] 03/29/2021 12:00:00 AM EDT eCW1 ([facility]) Outpatient [address] [facility] [place] [address] 03/24/2021 12:00:00 AM EDT eCW1 ([facility]) Unknown [address] [facility] [address] 03/03/2021 12:00:00 AM EDT eCW1 ([facility]) Unknown [address] [facility] [id number] 03/03/2021 12:00:00 AM EDT eCW1 ([facility]) (Cysto1) Urology [address] [place] [address] 03/01/2021 12:00:00 AM EDT eCW1 ([facility] [place]) Unknown [address] [facility] [id number] 02/25/2021 12:00:00 AM EDT eCW1 ([facility]) [place] [address] [facility] [place] [address] 02/24/2021 12:00:00 AM EDT eCW1 ([facility]) [place]patient [address] [facility] [place] [address] 02/24/2021 12:00:00 AM EDT eCW1 ([facility]) [place] [address] [facility] [place] [address] 02/24/2021 12:00:00 AM EDT eCW1 ([facility]) Unknown [address] [facility] [place] [address] 02/14/2021 12:00:00 AM EDT eCW1 ([facility]) [place]patient [address] [facility] [place] [address] 02/09/2021 12:00:00 AM EDT eCW1 ([facility]) Immunizations Vaccine Date Status Description Data Source(s) COVID-19 VACCINE Moderna 12/15/2020 12:00:00 AM EDT completed [facility] Vaccine Series Complete: YESThis Data wa s Submitted to [facility] Via be2. COVID-19 VACCINE Moderna 11/17/2020 12:00:00 AM EST completed [facility] Vaccine Series Complete: NOThis Data was Submitted to [facility] Via be2. Medications Medication Brand Name Start Date Product [...] AM EDT active Trulicity 0.75 MG/0.5ML eCW1 ([facility]) Lisinopril 10 MG Oral Tablet Lisinopril 10 MG 04/14/2021 12:00:00 A M EDT 1.0 {tablet} active Lisinopril 10 MG eCW1 ( [facility]) 0.5 ML dulaglutide 1.5 MG/ML Auto-Injector [Trulicity] Trulicity 0.75 MG/0.5ML Trulicity 0.75 MG/0.5ML 04/14/2021 12:00:00 AM EDT active Trulicity 0.75 MG/0.5ML eCW1 ([facility]) 0.5 ML dulaglutide 1.5 MG/ML Auto-Injector [Trulicity] Trulicity 0.75 MG/0.5ML Trulicity 0.75 MG/0.5ML 04/14/2021 12:00:00 AM EDT active Trulicity 0.75 MG/0.5ML eCW1 ([facility]) Lisinopril 10 MG Oral Tablet Lisinopril 10 MG 04/14/2021 12:00:00 A M EDT 1.0 {tablet} active Lisinopril 10 MG eCW1 ( [facility]) Lisinopril 10 MG Oral Tablet Lisinopril 10 MG 04/14/2021 12:00:00 A M EDT 1.0 {tablet} active Lisinopril 10 MG eCW1 ( [facility]) Lisinopril 10 MG Oral Tablet Lisinopril 10 MG 04/14/2021 12:00:00 A M EDT 1.0 {tablet} active Lisinopril 10 MG eCW1 ( [facility]) 0.5 ML dulaglutide 1.5 MG/ML Auto-Injector [Trulicity] Trulicity 0.75 MG/0.5ML Trulicity 0.75 MG/0.5ML 04/14/2021 12:00:00 AM EDT active Trulicity 0.75 MG/0.5ML eCW1 ([facility]) Polysaccharide iron complex 150 MG Oral Capsule [Ferre x-150] Ferrex 150 150 MG Ferrex 150 150 MG 02/25/2021 12:00:00 AM EDT 1.0 {capsule} active Ferrex 150 150 MG eCW1 ([facility]) Polysaccharide iron complex 150 MG Oral Capsule [Ferre x-150] Ferrex 150 150 MG Ferrex 150 150 MG 02/25/2021 12:00:00 AM EDT 1.0 {capsule} active Ferrex 150 150 MG eCW1 ([facility]) Polysaccharide iron complex 150 MG Oral Capsule [Ferre x-150] Ferrex 150 150 MG Ferrex 150 150 MG 02/25/2021 12:00:00 AM EDT 1.0 {capsule} active Ferrex 150 150 MG eCW1 ([facility]) Polysaccharide iron complex 150 MG Oral Capsule [Ferre x-150] Ferrex 150 150 MG Ferrex 150 150 MG 02/25/2021 12:00:00 AM EDT 1.0 {capsule} active Ferrex 150 150 MG eCW1 ([facility]) Polysaccharide iron complex 150 MG Oral Capsule [Ferre x-150] Ferrex 150 150 MG Ferrex 150 150 MG 02/25/2021 12:00:00 AM EDT 1.0 {capsule} active Ferrex 150 150 MG eCW1 ([facility]) Polysaccharide iron complex 150 MG Oral Capsule [Ferre x-150] Ferrex 150 150 MG Ferrex 150 150 MG 02/25/2021 12:00:00 AM EDT 1.0 {capsule} active Ferrex 150 150 MG eCW1 ([facility]) Polysaccharide iron complex 150 MG Oral Capsule [Ferre x-150] Ferrex 150 150 MG Ferrex 150 150 MG 02/25/2021 12:00:00 AM EDT 1.0 {capsule} active Ferrex 150 150 MG eCW1 ([facility]) Polysaccharide iron complex 150 MG Oral Capsule [Ferre x-150] Ferrex 150 150 MG Ferrex 150 150 MG 02/25/2021 12:00:00 AM EDT 1.0 {capsule} active Ferrex 150 150 MG eCW1 ([facility]) Polysaccharide iron complex 150 MG Oral Capsule [Ferre x-150] Ferrex 150 150 MG Ferrex 150 150 MG 02/25/2021 12:00:00 AM EDT 1.0 {capsule} active Ferrex 150 150 MG eCW1 ([facility]) Polysaccharide iron complex 150 MG Oral Capsule [Ferre x-150] Ferrex 150 150 MG Ferrex 150 150 MG 02/25/2021 12:00:00 AM EDT 1.0 {capsule} active Ferrex 150 150 MG eCW1 ([facility]) Polysaccharide iron complex 150 MG Oral Capsule [Ferre x-150] Ferrex 150 150 MG Ferrex 150 150 MG 02/25/2021 12:00:00 AM EDT 1.0 {capsule} active Ferrex 150 150 MG eCW1 ([facility]) Hydralazine Hydrochloride 25 MG Oral [...] Insulin Syring e U-100 1 ML eCW1 ([facility]) BD Insulin Syringe U-100 1 ML BD Insulin Syringe U-100 1 ML 02/09/2021 12:00:00 AM EDT active BD Insulin Syring e U-100 1 ML eCW1 ([facility]) BD Insulin Syringe U-100 1 ML BD Insulin Syringe U-100 1 ML 02/09/2021 12:00:00 AM EDT active BD Insulin Syring e U-100 1 ML eCW1 ([facility]) BD Insulin Syringe U-100 1 ML BD Insulin Syringe U-100 1 ML 02/09/2021 12:00:00 AM EDT active BD Insulin Syring e U-100 1 ML eCW1 ([facility]) BD Insulin Syringe U-100 1 ML BD Insulin Syringe U-100 1 ML 02/09/2021 12:00:00 AM EDT active BD Insulin Syring e U-100 1 ML eCW1 ([facility]) BD Insulin Syringe U-100 1 ML BD Insulin Syringe U-100 1 ML 02/09/2021 12:00:00 AM EDT active BD Insulin Syring e U-100 1 ML eCW1 ([facility]) BD Insulin Syringe U-100 1 ML BD Insulin Syringe U-100 1 ML 02/09/2021 12:00:00 AM EDT active BD Insulin Syring e U-100 1 ML eCW1 ([facility]) BD Insulin Syringe U-100 1 ML BD Insulin Syringe U-100 1 ML 02/09/2021 12:00:00 AM EDT active BD Insulin Syring e U-100 1 ML eCW1 ([facility]) BD Insulin Syringe U-100 1 ML BD Insulin Syringe U-100 1 ML 02/09/2021 12:00:00 AM EDT active BD Insulin Syring e U-100 1 ML eCW1 ([facility]) BD Insulin Syringe U-100 1 ML BD Insulin Syringe U-100 1 ML 02/09/2021 12:00:00 AM EDT active BD Insulin Syring e U-100 1 ML eCW1 ([facility]) BD Insulin Syringe U-100 1 ML BD Insulin Syringe U-100 1 ML 02/09/2021 12:00:00 AM EDT active BD Insulin Syring e U-100 1 ML eCW1 ([facility]) BD Insulin Syringe U-100 1 ML BD Insulin Syringe U-100 1 ML 02/09/2021 12:00:00 AM EDT active BD Insulin Syring e U-100 1 ML eCW1 ([facility]) BD Insulin Syringe U-100 1 ML BD Insulin Syringe U-100 1 ML 02/09/2021 12:00:00 AM EDT active BD Insulin Syring e U-100 1 ML eCW1 ([facility]) BD Insulin Syringe U-100 1 ML BD Insulin Syringe U-100 1 ML 02/09/2021 12:00:00 AM EDT active BD Insulin Syring e U-100 1 ML eCW1 ([facility]) 100 unit/mL 02/01/2021 12:00:00 AM [...] type / Coverage type Policy ID Covered republican ID Covered republican's relationship to mancera Policy [employer] Plan Information LETY [id number] SP [id number] EMEDNY [id number] SP [id number] SELF PAY ONLY [id number] SP [id number] Problems, Conditions, and Diagnoses Code Display Name Description Problem Type Effective Dates Data Source(s) D50.9 [id number] Iron deficiency anemia, unspecif ied iron deficiency anemia type Problem 04/14/2021 12:00:00 AM EDT eCW1 ([facility]) E13.10 [id number] Diabetic ketoacidosi s without coma associated with other specified diabetes mellitus Problem 03/03/2021 12:00:00 AM EDT eCW1 ([facility]) Z96.0 Retained ureteral stent Retained ureteral stent Proble m 03/01/2021 12:00:00 AM EDT eCW1 ([facility]) L97.921 [id number] Ulcer of left lower extremity, l imited to breakdown of skin Problem 02/25/2021 12:00:00 AM EDT eCW1 ([facility]) E10.9 25590409 Insulin dependent diabetes mellitus type IA Problem 02/25/2021 12:00:00 AM EDT eCW1 ([facility]) I10 [id number] Essential hypertension Problem 02/25/2021 12 :00:00 AM EDT eCW1 ([facility]) D50.0 [id number] Iron deficiency anemia due to chronic blo od loss Problem 02/25/2021 12:00:00 AM EDT eCW1 ([facility]) E13.65 [id number] Uncontrolled other s pecified diabetes mellitus with hyperglycemia Problem 02/25/2021 12:00:00 AM EDT eCW1 ([facility]) R91.8 [id number] Pulmonary nodules/lesions, multiple Probl em 02/25/2021 12:00:00 AM EDT eCW1 ([facility]) I25.10 [id number] 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 Problem 02/25/2021 12:00:00 AM EDT eCW1 ([facility]) A49.01 [id number] MSSA (methicillin susceptible Staphylococ cus aureus) Problem 02/24/2021 12:00:00 AM EDT eCW1 ([facility]) N41.2 [id number] Prostatic abscess Problem 02/24/2021 12:00:0 0 AM EDT eCW1 ([facility]) 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, managed as type 1 Problem 02/24/2021 12:00:00 AM EDT eCW1 ([facility]) R93.[id number] chest CT Problem 02/10/2021 12:00:00 AM EDT eCW1 ([facility]) I10 [id number] Hypertension, unspecified type Problem 02/09 12:00:00 AM EDT eCW1 ([facility]) Z79.4 [id number] ocean transportation intermediary (current) use of insulin Proble m 02/09/2021 12:00:00 AM EDT eCW1 ([facility]) E11.42 [id number] Type 2 diabetes mellitus with diabetic po lyneuropathy Problem 02/09/2021 12:00:00 AM EDT eCW1 ([facility]) L97.329 [id number] Skin ulcer of malleolar area of left ankl e Problem 02/09/2021 12:00:00 AM EDT eCW1 ([facility]) Surgeries/Procedures Procedure Description Date Indications Data Source(s) Med: Lidocaine Jelly 2% 6ml Intravesically (Glydo) 03/01/2021 12:00:00 AM EDT eCW1 ([facility]) Endoscopy Upper GI Complex Diagnostic 02/16/2021 12:00 :00 AM EDT MEDENT ([facility], ) Colonoscopy W/ Poly 02/16/2021 12:00:00 AM EDT MEDENT ([facility], ) Results ID Date Data Source [id number] AUTOANTIBODY 03/08/2021 12:00:00 AM EDT eCW1 ([facility]) Name Value Range Interpretation Code Description Data Michela rce(s) Supporting Document(s) <5.0 0.0-5.0 KYLE-[id number] AUTOANTIBODY eCW1 ([facility]) ID Date Data Source [id number] 03/08/2021 12:00:00 AM EDT eCW1 ([facility]) Name Value Range Interpretation Code Description Data Michela rce(s) Supporting Document(s) Microalbumin/Creatinine [Mass Ratio] in Urine 51.6 CREATININE, URINE eCW1 ([facility]) Albumin/Creatinine [Mass Ratio] in Urine 1120.0 MALB URINE SIEMENS eCW1 ([facility]) Microalbumin/Creatinine [Ratio] in Urine 2170.5 0.0-30.0 MANDO/CREAT RATIO eCW1 ([facility]) ID Date Data Source LIPID PANEL (CARDIAC RISK) 03/08/2021 12:00:00 AM EDT eCW1 ( [facility]) Name Value Range Interpretation Code Description Data Michela rce(s) Supporting Document(s) Triglyceride [Mass/volume] in Serum or Plasma by calculation 132 <150 TRIGLYCERIDES LEVEL eCW1 ([facility]) Cholesterol in HDL [Moles/volume] in Serum or Plasma 50 >40 HDL CHOLESTEROL eCW1 ([facility]) Cholesterol [Moles/volume] in Serum or Plasma 173 <200 CHOLESTEROL LEVEL eCW1 ([facility]) Cholesterol in LDL [Mass/volume] in Serum or Plasma by calculation 97 <100 LDL CHOLESTEROL eCW1 ([facility]) 123 NON-HDL-C eCW1 ([facility]) 3.460 <5 CHOLESTEROL RISK RATIO eCW1 ([facility]ending sale to [facility]) ID Date Data Source CBC with Differential 02/24/2021 12:00:00 AM EDT eCW1 ([facility]) Name Value Range Interpretation Code Description Data Michela rce(s) Supporting Document(s) 9.5 4.0-10.0 WHITE BLOOD COUNT eCW1 ([facility]) 10.6 13.5-17.5 HEMOGLOBIN eCW1 ([facility]) 3.81 4.30-6.10 RED BLOOD COUNT eCW1 ([facility]) 34.0 42.0-52.0 HEMATOCRIT eCW1 ([facility]) 89.2 80.0-96.0 MEAN CORPUSCULAR VOLUME e CW1 ([facility]) 27.8 27.0-33.0 MEAN CORPUSCULAR HEMOGLOB IN eCW1 ([facility]) 14.6 11.5-14.5 RED CELL DISTRIBUTION WID TH eCW1 ([facility]) 321 150-450 PLATELET COUNT, AUTOMATED eCW1 ([facility]) 31.2 32.0-36.5 MEAN CORPUSCULAR HGB CONC eCW1 ([facility]) 62.0 36.0-66.0 NEUTROPHILS % eCW1 ([facility]) 3.5 0.0-3.0 EOS % eCW1 ([facility]) 10.2 2.0-8.0 MONO % eCW1 ([facility]) 23.2 24.0-44.0 LYMPH % eCW1 ([facility]) 1.0 0.0-0.8 MONO # eCW1 ([facility]) 0.8 0.0-1.0 BASO % eCW1 ([facility]) 2.2 1.5-5.0 LYMPH # eCW1 ([facility]) 5.9 1.5-8.5 NEUTROPHILS # eCW1 ([facility]) 0.3 0.0-0.5 EOS # eCW1 ([facility]) 0.1 0.0-0.2 BASO # eCW1 ([facility]) ID Date Data Source [id number] 02/14/2021 01:24:00 PM EDT [facility], ) Name Value Range Interpretation Code Description Data Michela rce(s) Supporting Document(s) Influenza A Amplification Laboratory test result Normal (applies to non- numeric results) MEDENT ([facility], ) Negative results do not preclude influen za or RSV virus infection and should not be used as the sole basis for treatment or other patient management decisions. Laboratory test finding (navigational concept) Laboratory test r esult Normal (applies to non-numeric results) MEDENT ([facility]) A false negative result may occur [...] pathogens. DISCLAIMER: Testing was performed using the [employer] SARS-CoV-2 test. This test was developed and its performance characteristics determined by [employer]. This test has not been FDA cleared [...] Normal (applies to non- numeric results) MEDENT ([facility], ) Negative results do not preclude influen za or RSV virus infection and should not be used as the sole basis for treatment or other patient management decisions. RSV Amplification Laboratory test result Normal (applies to non-numeric results) MEDENT ([facility], ) Negative results do not preclude influen za or RSV virus infection and should not be used as the sole basis for treatment or other patient management decisions. ID Date Data Source [id number] 02/14/2021 01:24:00 PM EDT [facility] Name Value Range Interpretation Code Description Data Michela rce(s) Supporting Document(s) SARS coronavirus 2 RNA [Presence] in Res piratory specimen by TRACE with probe detection NEGATIVE [facility] This lab was ordered by [facility] a nd reported by [facility]. ID Date Data Source [id number] 02/11/2021 04:10:00 AM EDT [facility] Name Value Range Interpretation Code Description Data Michela rce(s) Supporting Document(s) SARS coronavirus 2 RNA [Presence] in Res piratory specimen by TRACE with probe detection NEGATIVE [facility] This lab was ordered by [facility] a nd reported by [facility]. ID Date Data Source ERYTHROCYTE SEDIMENTATION RATE 02/09/2021 12:00:00 AM EDT eC W1 ([facility]) Name Value Range Interpretation Code Description Data Michela rce(s) Supporting Document(s) 98 0-15 ERYTHROCYTE SEDIMENTATION RATE eCW1 ([facility]) ID Date Data Source C REACTIVE PROTEIN QUANTITATIV (At [facility]) 02/09/2021 12:00 :00 AM EDT eCW1 ([facility]) Name Value Range Interpretation Code Description Data Michela rce(s) Supporting Document(s) 3.81 0.00-0.30 C REACTIVE PROTEIN QUANTI TATIV eCW1 ([facility]) ID Date Data Source Comprehensive Metabolic Profile (CMP) 02/09/2021 12:00:00 AM EDT eCW1 ([facility]) Name Value Range Interpretation Code Description Data Michela rce(s) Supporting Document(s) 23 7-18 BLOOD UREA NITROGEN eCW1 ([facility]) 105 70-100 GLUCOSE, FASTING eCW1 ([facility]) 1.35 0.70-1.30 CREATININE FOR GFR eCW1 ([facility]) 141 136-145 SODIUM LEVEL eCW1 ([facility]) > 60.0 >60 GLOMERULAR FILTRATION RATE eCW 1 ([facility]) 27 21-32 CARBON DIOXIDE LEVEL eCW1 ([facility]) 4.0 3.5-5.1 POTASSIUM SERUM eCW1 ([facility]) 8.3 8.5-10.1 CALCIUM LEVEL eCW1 ([facility]) 109 98-107 CHLORIDE LEVEL eCW1 ([facility]) 15 7-37 AST/SGOT eCW1 ([facility]) 78 45-117 ALKALINE PHOSPHATASE eCW1 ([facility]) 12 12-78 ALT/SGPT eCW1 ([facility]) 0.3 0.2-1.0 BILIRUBIN,TOTAL eCW1 ([facility]) 2.4 3.2-5.2 ALBUMIN eCW1 ([facility]) 7.7 6.4-8.2 TOTAL PROTEIN eCW1 ([facility]) 0.5 ALBUMIN/GLOBULIN RATIO eCW1 ([facility]ending sale to [facility]) ID Date Data Source CBC - Complete Blood Count 02/09/2021 12:00:00 AM EDT eCW1 ( [facility]) Name Value Range Interpretation Code Description Data Michela rce(s) Supporting Document(s) 3.40 4.30-6.10 RED BLOOD COUNT eCW1 ([facility]) 9.4 4.0-10.0 WHITE BLOOD COUNT eCW1 ([facility]) 30.9 42.0-52.0 HEMATOCRIT eCW1 ([facility]) 9.3 13.5-17.5 HEMOGLOBIN eCW1 ([facility]) 90.9 80.0-96.0 MEAN CORPUSCULAR VOLUME e CW1 ([facility]) 30.1 32.0-36.5 MEAN CORPUSCULAR HGB CONC eCW1 ([facility]) 27.4 27.0-33.0 MEAN CORPUSCULAR HEMOGLOB IN eCW1 ([facility]) 347 150-450 PLATELET COUNT, AUTOMATED eCW1 ([facility]) 14.3 11.5-14.5 RED CELL DISTRIBUTION WID TH eCW1 ([facility]) ID Date Data Source [id number] 01/21/2021 11:51:00 PM EDT [facility] Name Value Range Interpretation Code Description Data Michela rce(s) Supporting Document(s) SARS-CoV-2 (COVID 19) NEGATIVE - SARS-CoV-2 (COVID19) [facility] This lab was ordered by [facility] a nd reported by [facility]. ID Date Data Source [id number] 12/31/2020 11:04:00 AM EDT [facility] Name Value Range Interpretation Code Description Data Michela rce(s) Supporting Document(s) SARS coronavirus 2 RNA [Presence] in Res piratory specimen by TRACE with probe detection NEGATIVE [facility] This lab was ordered by [facility] a nd reported by [facility]. ID Date Data Source [id number] 12/23/2020 11:33:00 AM EDT [facility] Name Value Range Interpretation Code Description Data Michela rce(s) Supporting Document(s) SARS-CoV-2 (COVID 19) NEGATIVE - SARS-CoV-2 (COVID19) [facility] This lab was ordered by [facility] a nd reported by [facility]. Procedure Social History Code Duration Value Status Description Data Source(s ) Smoking 03/24/2021 12:00:00 AM EDT Never Smoker completed Never S moker eCW1 ([facility]) Smoking 03/24/2021 12:00:00 AM EDT Never Smoker completed Never S moker eCW1 ([facility]) Smoking 03/24/2021 12:00:00 AM EDT Never Smoker completed Never S moker eCW1 ([facility]) Smoking 03/24/2021 12:00:00 AM EDT Never Smoker completed Never S moker eCW1 ([facility]) Smoking 03/24/2021 12:00:00 AM EDT Never Smoker completed Never S moker eCW1 ([facility]) Smoking 03/24/2021 12:00:00 AM EDT Never Smoker completed Never S moker eCW1 ([facility]) Smoking 03/01/2021 12:00:00 AM EDT Never Smoker completed Never S moker eCW1 ([facility]) Smoking 03/01/2021 12:00:00 AM EDT Never Smoker completed Never S moker eCW1 ([facility]) Smoking 03/01/2021 12:00:00 AM EDT Never Smoker completed Never S moker eCW1 ([facility]) Smoking 03/01/2021 12:00:00 AM EDT Never Smoker completed Never S moker eCW1 ([facility]) Smoking 03/01/2021 12:00:00 AM EDT Never Smoker completed Never S moker eCW1 ([facility]) Smoking 02/24/2021 12:00:00 AM EDT Never Smoker completed Never S moker eCW1 ([facility]) Smoking 02/10/2021 12:00:00 AM EDT Never Smoker completed Never S moker eCW1 ([facility]) Smoking 02/10/2021 12:00:00 AM EDT Never Smoker completed Never S moker eCW1 ([facility]) Vital Signs ID Date Data Source UNK Name Value Range Interpretation Code Description Data Source(s) Body weight 228 [lb_av] 228 [lb_av] eCW1 ([facility]) Body height 72 [in_i] 72 [in_i] eCW1 ([facility]) Body mass index (BMI) [Ratio] 30.92 kg/m2 30.92 kg/m2 eCW1 ([facility]) Heart rate 108 /min 108 /min eCW1 ([facility]) Respiratory rate 18 /min 18 /min eCW1 ([facility]) Body temperature 96.9 [degF] 96.9 [degF] eCW1 ( [facility]) Systolic blood pressure 112 mm[Hg] 112 mm[Hg] e CW1 ([facility]) Diastolic blood pressure 70 mm[Hg] 70 mm[Hg] eCW1 ([facility]) Body weight 212 [lb_av] 212 [lb_av] eCW1 ([facility]) Body height 72 [in_i] 72 [in_i] eCW1 ([facility]) Body mass index (BMI) [Ratio] 28.75 kg/m2 28.75 kg/m2 eCW1 ([facility]) Heart rate 100 /min 100 /min eCW1 ([facility]) Respiratory rate 19 /min 19 /min eCW1 ([facility]) Body temperature 98.0 [degF] 98.0 [degF] eCW1 ( [facility]) Systolic blood pressure 141 mm[Hg] 141 mm[Hg] e CW1 ([facility]) Diastolic blood pressure 94 mm[Hg] 94 mm[Hg] eCW1 ([facility]) Body weight 212 [lb_av] 212 [lb_av] eCW1 ([facility]) Body height 72 [in_i] 72 [in_i] eCW1 ([facility]) Body mass index (BMI) [Ratio] 28.75 kg/m2 28.75 kg/m2 eCW1 ([facility]) Heart rate 88 /min 88 /min eCW1 ([facility]) Respiratory rate 18 /min 18 /min eCW1 ([facility]) Body temperature 97.4 [degF] 97.4 [degF] eCW1 ( [facility]) Systolic blood pressure 104 mm[Hg] 104 mm[Hg] e CW1 ([facility]) Diastolic blood pressure 64 mm[Hg] 64 mm[Hg] eCW1 ([facility]) Body weight 212 [lb_av] 212 [lb_av] eCW1 ([facility]) Body height 72 [in_i] 72 [in_i] eCW1 ([facility]) Body mass index (BMI) [Ratio] 28.75 kg/m2 28.75 kg/m2 eCW1 ([facility]) Heart rate 88 /min 88 /min eCW1 ([facility]) Respiratory rate 18 /min 18 /min eCW1 ([facility]) Body temperature 97.4 [degF] 97.4 [degF] eCW1 ( [facility]) Systolic blood pressure 104 mm[Hg] 104 mm[Hg] e CW1 ([facility]) Diastolic blood pressure 64 mm[Hg] 64 mm[Hg] eCW1 ([facility]) Body weight 224 [lb_av] 224 [lb_av] eCW1 ([facility]) Body height 72 [in_i] 72 [in_i] eCW1 ([facility]) Body mass index (BMI) [Ratio] 30.38 kg/m2 30.38 kg/m2 eCW1 ([facility]) Heart rate 82 /min 82 /min eCW1 ([facility]) Respiratory rate 18 /min 18 /min eCW1 ([facility]) Body temperature 97.1 [degF] 97.1 [degF] eCW1 ( [facility]) Systolic blood pressure 122 mm[Hg] 122 mm[Hg] e CW1 ([facility]) Diastolic blood pressure 80 mm[Hg] 80 mm[Hg] eCW1 ([facility]) Body temperature 96.9 [degF] 96.9 [degF] MEDENT ([facility]) Body height 71 [in_i] 71 [in_i] MEDENT ([facility]) 5'11" Body weight 220.00 [lb_av] 220.00 [lb_av] MEDEN T ([facility]) Body mass index (BMI) [Ratio] 30.7 kg/m2 30.7 k g/m2 MEDENT ([facility]) Patient Treatment Plan of Care Planned Activity Planned Date Details Description Data Source (s) 0.5 ML dulaglutide 1.5 MG/ML Auto-Injector [Trulicity] 04/14/2021 12:00:00 AM EDT eCW1 ([facility]) Lisinopril 10 MG Oral Tablet 04/14/2021 12:00:00 AM EDT eCW1 ([facility]) 0.5 ML dulaglutide 1.5 MG/ML Auto-Injector [Trulicity] 04/14/2021 12:00:00 AM EDT eCW1 ([facility]) Lisinopril 10 MG Oral Tablet 04/14/2021 12:00:00 AM EDT eCW1 ([facility]) 0.5 ML dulaglutide 1.5 MG/ML Auto-Injector [Trulicity] 04/14/2021 12:00:00 AM EDT eCW1 ([facility]) Lisinopril 10 MG Oral Tablet 04/14/2021 12:00:00 AM EDT eCW1 ([facility]) 0.5 ML dulaglutide 1.5 MG/ML Auto-Injector [Trulicity] 04/14/2021 12:00:00 AM EDT eCW1 ([facility]) Lisinopril 10 MG Oral Tablet 04/14/2021 12:00:00 AM EDT eCW1 ([facility]) BD Insulin Syringe U-100 1 ML 02/09/2021 12:00:00 AM EDT eCW1 ([facility]) BD Insulin Syringe U-100 1 ML 02/09/2021 12:00:00 AM EDT eCW1 ([facility])
== END 2021-07-06 18:42 | disposition home or self-care (01) ==
LOC: M ED 16:07
DX: H53.8 Other visual disturbances (principal); E11.9 Type 2 diabetes mellitus without complications; I10 Essential (primary) hypertension; Z86.718 Personal history of other venous thrombosis and embolism; Z79.4 Long term (current) use of insulin; Z79.899 Other long term (current) drug therapy

== ENCOUNTER → 2021-08-08 | Outpatient (REF) | payer OTHER, MEDICAID ==
[~2021-08-08] MED LIST changes: +ECOT81TA5 PO
== END ==
LOC: M SFHCPLAZ 16:03
PROVIDERS: ATTEND Family Medicine
DX: E11.42 Type 2 diabetes mellitus with diabetic polyneuropathy (principal); Z53.9 Procedure and treatment not carried out, unspecified reason

== ENCOUNTER → 2021-08-29 | Outpatient (REF) | payer OTHER, MEDICAID ==
[2021-08-29 16:41] LABS: ALBUMIN 2.5 GM/DL (3.2-5.2); BILIRUBIN,TOTAL 0.3 MG/DL (0.2-1.0); CREATININE FOR GFR 1.93 MG/DL (0.70-1.30); GLOMERULAR FILTRATION RATE 39.6 (>60); TOTAL PROTEIN 6.1 GM/DL (6.4-8.2)
[2021-08-29 16:54] LABS: HEMOGLOBIN A1c 13.5 %
[2021-08-29 17:00] LABS: BASO # 0.1 10^3/uL (0.0-0.2); BASO % 0.8 % (0.0-1.0); EOS # 0.2 10^3/uL (0.0-0.5); EOS % 2.1 % (0.0-3.0); HEMATOCRIT 39.3 % (42.0-52.0); LYMPH # 1.5 10^3/uL (1.5-5.0); LYMPH % 17.3 % (24.0-44.0); MEAN CORPUSCULAR HEMOGLOBIN 28.8 pg (27.0-33.0); MEAN CORPUSCULAR HGB CONC 33.1 g/dl (32.0-36.5); MEAN CORPUSCULAR VOLUME 87.1 fl (80.0-96.0); MONO # 0.7 10^3/uL (0.0-0.8); MONO % 8.3 % (2.0-8.0); PLATELET COUNT, AUTOMATED 238 10^3/uL (150-450); RED BLOOD COUNT 4.51 10^6/uL (4.30-6.10); WHITE BLOOD COUNT 8.5 10^3/uL (4.0-10.0)
== END ==
LOC: M LAB REF 15:47
PROVIDERS: ATTEND Surgery
DX: I87.312 Chronic venous hypertension (idiopathic) with ulcer of left lower extremity (principal)

== ENCOUNTER → 2021-11-04 | Outpatient (REF) | payer OTHER, MEDICAID | LOC: M SFHCPLAZ 12:18 | PROVIDERS: ATTEND Family Medicine | DX: D64.9 Anemia, unspecified (principal); E11.42 Type 2 diabetes mellitus with diabetic polyneuropathy; I10 Essential (primary) hypertension; Z53.8 Procedure and treatment not carried out for other reasons ==

== ENCOUNTER → 2021-11-04 | Outpatient (CLI) | payer OTHER, MEDICAID ==
[2021-11-04 17:31] LABS: HEMATOCRIT 41.3 % (42.0-52.0); HEMOGLOBIN 13.4 g/dl (13.5-17.5); MEAN CORPUSCULAR HEMOGLOBIN 28.5 pg (27.0-33.0); MEAN CORPUSCULAR HGB CONC 32.4 g/dl (32.0-36.5); MEAN CORPUSCULAR VOLUME 87.7 fl (80.0-96.0); PLATELET COUNT, AUTOMATED 260 10^3/uL (150-450); RED BLOOD COUNT 4.71 10^6/uL (4.30-6.10); WHITE BLOOD COUNT 9.7 10^3/uL (4.0-10.0)
[2021-11-04 17:48] LABS: HEMOGLOBIN A1c 13.5 %
[2021-11-04 18:09] LABS: CALCIUM LEVEL 8.4 MG/DL (8.5-10.1); CREATININE FOR GFR 2.04 MG/DL (0.70-1.30); GLOMERULAR FILTRATION RATE 37.1 (>60); PERCENT SATURATION 28.6 % (19.7-50.0)
[2021-11-04 19:02] LABS: MAU/CREAT RATIO 4236.1 MCG/MG (0.0-30.0)
== END ==
LOC: M PLALAB 12:28
PROVIDERS: ATTEND Family Medicine
DX: E11.42 Type 2 diabetes mellitus with diabetic polyneuropathy (principal); I10 Essential (primary) hypertension; D64.9 Anemia, unspecified

== ENCOUNTER → 2022-01-09 | Outpatient (CLI) | payer OTHER, MEDICAID ==
[2022-01-09 15:32] LABS: CALCIUM LEVEL 9.2 MG/DL (8.5-10.1); CREATININE FOR GFR 2.37 MG/DL (0.70-1.30); GLOMERULAR FILTRATION RATE 31.2 (>60); POTASSIUM SERUM 3.9 MEQ/L (3.5-5.1)
== END ==
LOC: M PLALAB 13:02
PROVIDERS: ATTEND Family Medicine
DX: E11.42 Type 2 diabetes mellitus with diabetic polyneuropathy (principal); N18.32 Chronic kidney disease, stage 3b

== ENCOUNTER → 2022-01-16 | Outpatient (CLI) | payer OTHER, MEDICAID ==
[2022-01-16 14:13] LABS: CALCIUM LEVEL 9.3 MG/DL (8.5-10.1); CREATININE FOR GFR 2.32 MG/DL (0.70-1.30); POTASSIUM SERUM 4.5 MEQ/L (3.5-5.1)
[2022-01-16 14:20] LABS: HEMOGLOBIN A1c 10.2 %
== END ==
LOC: M PLALAB 10:58
PROVIDERS: ATTEND Family Medicine
DX: N18.32 Chronic kidney disease, stage 3b (principal); D64.9 Anemia, unspecified; E11.42 Type 2 diabetes mellitus with diabetic polyneuropathy; I12.9 Hypertensive chronic kidney disease with stage 1 through stage 4 chronic kidney disease, or unspecified chronic kidney disease

== ENCOUNTER → 2022-01-18 | Outpatient (CLI) | payer OTHER, MEDICAID | LOC: M WHC 06:35 | PROVIDERS: ATTEND Family Medicine | DX: I10 Essential (primary) hypertension (principal); N28.1 Cyst of kidney, acquired ==

== ENCOUNTER → 2022-01-23 | Outpatient (CLI) | payer OTHER, MEDICAID ==
[2022-01-23 14:05] LABS: CALCIUM LEVEL 8.6 MG/DL (8.5-10.1); CREATININE FOR GFR 2.35 MG/DL (0.70-1.30); GLOMERULAR FILTRATION RATE 31.5 (>60); POTASSIUM SERUM 4.1 MEQ/L (3.5-5.1)
== END ==
LOC: M PLALAB 11:10
PROVIDERS: ATTEND Student in an Organized Health Care Education/Training Program
DX: N17.9 Acute kidney failure, unspecified (principal)

== ENCOUNTER → 2022-01-25 | Outpatient (REF) | payer OTHER, MEDICAID ==
[2022-01-25 14:20] LABS: CREATININE, SERUM 2.4 MG/DL (0.6-1.3)
[2022-01-25 14:31] LABS: CREATININE CLEARANCE, URINE 27.1 ML/MIN (85-125); CREATININE, URINE 58.5 MG/DL
== END ==
LOC: M SFHCPLAZ 12:47
PROVIDERS: ATTEND Student in an Organized Health Care Education/Training Program
DX: N17.9 Acute kidney failure, unspecified (principal)

== ENCOUNTER 2022-03-29 15:43 | Emergency (ER) | payer BC, MEDICAID ==
[~2022-03-29] VITALS: Ht 182.9 cm; Wt 113.8 kg
[2022-03-29 16:36] LABS: BASO # 0.1 10^3/uL (0.0-0.2); BASO % 0.6 % (0.0-1.0); EOS # 0.3 10^3/uL (0.0-0.5); EOS % 3.3 % (0.0-3.0); HEMATOCRIT 38.3 % (42.0-52.0); HEMOGLOBIN 12.5 g/dl (13.5-17.5); LYMPH # 1.7 10^3/uL (1.5-5.0); LYMPH % 16.7 % (24.0-44.0); MEAN CORPUSCULAR HEMOGLOBIN 28.5 pg (27.0-33.0); MEAN CORPUSCULAR HGB CONC 32.6 g/dl (32.0-36.5); MEAN CORPUSCULAR VOLUME 87.4 fl (80.0-96.0); MONO # 1.1 10^3/uL (0.0-0.8); MONO % 10.8 % (2.0-8.0); NEUTROPHILS # 7.1 10^3/uL (1.5-8.5); NEUTROPHILS % 68.3 % (36.0-66.0); PLATELET COUNT, AUTOMATED 247 10^3/uL (150-450); RED BLOOD COUNT 4.38 10^6/uL (4.30-6.10); WHITE BLOOD COUNT 10.3 10^3/uL (4.0-10.0)
[2022-03-29 17:09] LABS: ALBUMIN 2.4 GM/DL (3.2-5.2); ALT/SGPT 20 U/L (12-78); BILIRUBIN,DIRECT < 0.1 MG/DL (0.0-0.2); BILIRUBIN,TOTAL 0.3 MG/DL (0.2-1.0); BLOOD UREA NITROGEN 33 MG/DL (7-18); CALCIUM LEVEL 8.4 MG/DL (8.5-10.1); CARBON DIOXIDE LEVEL 23 MEQ/L (21-32); CHLORIDE LEVEL 116 MEQ/L (98-107); CREATININE FOR GFR 2.58 MG/DL (0.70-1.30); GLOMERULAR FILTRATION RATE 28.2 (>56); GLUCOSE, FASTING 91 MG/DL (70-100); LIPASE 181 U/L (73-393); NT-PRO BNP 1541 PG/ML (<125); POTASSIUM SERUM 4.2 MEQ/L (3.5-5.1); SODIUM LEVEL 146 MEQ/L (136-145); TOTAL PROTEIN 5.7 GM/DL (6.4-8.2)
[2022-03-29 17:17] LABS: CK-MB VALUE MASS 7.4 NG/ML (<3.6); MB/CK RELATIVE INDEX 1.11 (< OR =4)
[2022-03-29] MEDS ORDERED: ASPIRIN 81 MG CHEW TABLET PO ONE (17:20)
[2022-03-29 17:55] LABS: INR 1.02; PROTHROMBIN TIME 13.8 SECONDS (12.7-14.5)
[2022-03-29 18:00] LABS: RSV AMPLIFICATION NEGATIVE (NEGATIVE)
[2022-03-29 18:02] LABS: CK-MB VALUE MASS 6.6 NG/ML (<3.6); MB/CK RELATIVE INDEX 1.12 (< OR =4)
[2022-03-29] MEDS ORDERED: METOPROLOL TART 25 MG TABLET PO ONE (19:05)
[2022-03-29 19:35] LABS: CK-MB VALUE MASS 6.3 NG/ML (<3.6); MB/CK RELATIVE INDEX 1.08 (< OR =4)
[2022-03-29] MEDS ORDERED: INSUHUMDS SC (20:37)
[2022-03-29] MEDS ORDERED: TRUL0.5I SQ (20:39)
[2022-03-29] MEDS ORDERED: METO1TAB7 PO (20:39)
[2022-03-29] MEDS ORDERED: INSULANT SQ (20:42)
[2022-03-29] MEDS ORDERED: HOME MED LIST COMPLETE! XX SCH (20:45)
[2022-03-30] MEDS ORDERED: LABETALOL 100MG/20ML VIAL IV STA ×3 (01:35→03:46)
[2022-03-30] MEDS ORDERED: HEPARIN SOD (PORCINE) 5000UNITS/ML 1ML VIAL/SYRINGE IV PRN (01:50)
[2022-03-30] MEDS ORDERED: HEPARIN DRIP 25,000 UNITS in IV 1 EA IV SCH (02:00)
[2022-03-30 04:16] LABS: MB/CK RELATIVE INDEX 0.95 (< OR =4)
[2022-03-30 05:24] VITALS: BP 180/96
[2022-03-30 07:00] VITALS: BP 169/91
== END 2022-03-30 07:13 | disposition short-term general hospital (02) ==
LOC: M ED 15:43
DX: R06.02 Shortness of breath (principal); N18.9 Chronic kidney disease, unspecified; R74.8 Abnormal levels of other serum enzymes; R94.31 Abnormal electrocardiogram [ECG] [EKG]; E11.9 Type 2 diabetes mellitus without complications; I10 Essential (primary) hypertension; Z95.5 Presence of coronary angioplasty implant and graft; Z79.811 Long term (current) use of aromatase inhibitors; Z79.4 Long term (current) use of insulin; Z79.899 Other long term (current) drug therapy
CPT/HCPCS: 71045; 80048; 80076; 82550; 82553; 83690; 83880; 84484; 85025; 85610; 85730; 87631; 93005; 93041; 94760; 96374; 96375; 99285; J1644

== ENCOUNTER → 2022-04-10 | Outpatient (CLI) | payer MEDICAID, BC ==
[~2022-04-10] MED LIST changes: +INSULANT SQ; +METO1TAB7 PO; +TRUL0.5I SQ
[2022-04-10 14:22] LABS: CALCIUM LEVEL 8.4 MG/DL (8.5-10.1); CREATININE FOR GFR 2.49 MG/DL (0.70-1.30); GLOMERULAR FILTRATION RATE 29.4 (>56); POTASSIUM SERUM 4.1 MEQ/L (3.5-5.1)
== END ==
LOC: M PLALAB 11:06
PROVIDERS: ATTEND Internal Medicine Cardiovascular Disease
DX: N18.30 Chronic kidney disease, stage 3 unspecified (principal)

== ENCOUNTER → 2022-04-10 | Outpatient (CLI) | payer MEDICAID, BC ==
[2022-04-10 14:18] LABS: CALCIUM LEVEL 8.5 MG/DL (8.5-10.1); CREATININE FOR GFR 2.47 MG/DL (0.70-1.30); GLOMERULAR FILTRATION RATE 29.7 (>56); POTASSIUM SERUM 4.1 MEQ/L (3.5-5.1)
== END ==
LOC: M PLALAB 11:08
PROVIDERS: ATTEND Student in an Organized Health Care Education/Training Program
DX: N18.32 Chronic kidney disease, stage 3b (principal)

== ENCOUNTER → 2022-05-18 | Outpatient (CLI) | payer BC, OTHER ==
[2022-05-18 16:41] LABS: CALCIUM LEVEL 8.8 MG/DL (8.5-10.1); CREATININE FOR GFR 2.68 MG/DL (0.70-1.30); CREATININE,RANDOM URINE 61.9 MG/DL; POTASSIUM SERUM 4.2 MEQ/L (3.5-5.1)
[2022-05-18 18:00] LABS: HEMOGLOBIN A1c 6.6 %
== END ==
LOC: M PLALAB 13:15
PROVIDERS: ATTEND Student in an Organized Health Care Education/Training Program
DX: E11.29 Type 2 diabetes mellitus with other diabetic kidney complication (principal); N18.4 Chronic kidney disease, stage 4 (severe)

== ENCOUNTER → 2022-05-24 | Outpatient (REF) | payer BC, OTHER, MEDICAID | LOC: M LAB REF 17:11 | PROVIDERS: ATTEND Internal Medicine Nephrology | DX: E11.21 Type 2 diabetes mellitus with diabetic nephropathy (principal) ==

== ENCOUNTER → 2022-06-20 | Outpatient (CLI) | payer BC, OTHER ==
[~2022-06-20] MED LIST changes: +PROHANCE 279.3MG/ML 5ML VIAL ONE
== END ==
LOC: M PLAIMG 12:14
PROVIDERS: ATTEND Internal Medicine Nephrology
DX: D41.01 Neoplasm of uncertain behavior of right kidney (principal)
CPT/HCPCS: 74183; A9576

== ENCOUNTER → 2022-06-20 | Outpatient (CLI) | payer BC, OTHER ==
[~2022-06-20] MED LIST changes: -PROHANCE 279.3MG/ML 5ML VIAL ONE
[2022-06-20 15:49] LABS: BASO # 0.1 10^3/uL (0.0-0.2); BASO % 0.9 % (0.0-1.0); EOS # 0.3 10^3/uL (0.0-0.5); EOS % 2.8 % (0.0-3.0); HEMATOCRIT 40.3 % (42.0-52.0); HEMOGLOBIN 12.6 g/dl (13.5-17.5); LYMPH # 1.6 10^3/uL (1.5-5.0); LYMPH % 16.8 % (24.0-44.0); MEAN CORPUSCULAR HEMOGLOBIN 28.3 pg (27.0-33.0); MEAN CORPUSCULAR HGB CONC 31.3 g/dl (32.0-36.5); MEAN CORPUSCULAR VOLUME 90.6 fl (80.0-96.0); MONO # 0.7 10^3/uL (0.0-0.8); MONO % 7.4 % (2.0-8.0); NEUTROPHILS % 71.8 % (36.0-66.0); PLATELET COUNT, AUTOMATED 273 10^3/uL (150-450); RED BLOOD COUNT 4.45 10^6/uL (4.30-6.10); WHITE BLOOD COUNT 9.7 10^3/uL (4.0-10.0)
[2022-06-20 16:03] LABS: HEMOGLOBIN A1c 6.8 %
[2022-06-20 16:23] LABS: ALBUMIN 2.6 GM/DL (3.2-5.2); BILIRUBIN,TOTAL 0.3 MG/DL (0.2-1.0); CALCIUM LEVEL 8.4 MG/DL (8.5-10.1); CREATININE FOR GFR 3.14 MG/DL (0.70-1.30); GLOMERULAR FILTRATION RATE 22.5 (>56); TOTAL PROTEIN 6.2 GM/DL (6.4-8.2)
[2022-06-20 17:10] LABS: MAU/CREAT RATIO 3254.9 MCG/MG (0.0-30.0)
== END | disposition home or self-care (01) ==
LOC: M PLALAB 12:22
PROVIDERS: ATTEND Internal Medicine Pulmonary Disease
DX: E11.42 Type 2 diabetes mellitus with diabetic polyneuropathy (principal)

== ENCOUNTER 2022-09-25 18:40 | Inpatient (IN) | payer BC, OTHER ==
[~2022-09-25] VITALS: Ht 182.9 cm; Wt 118.5 kg
[~2022-09-25 18:40] MED LIST changes: +CLOP75TA99 PO; -PLAV1TAB2 PO; +TRUL0.5I SC; -TRUL0.5I SQ
[2022-09-25] MEDS ORDERED: LABETALOL 100MG/20ML VIAL IV STA ×2 (20:42→23:11)
[2022-09-25] MEDS ORDERED: FUROSEMIDE 40MG/4ML VIAL IV ONE (20:45)
[2022-09-25 21:02] LABS: BASO # 0.1 10^3/uL (0.0-0.2); BASO % 0.6 % (0.0-1.0); EOS # 0.3 10^3/uL (0.0-0.5); EOS % 2.8 % (0.0-3.0); HEMATOCRIT 39.7 % (42.0-52.0); HEMOGLOBIN 12.5 g/dl (13.5-17.5); LYMPH # 1.5 10^3/uL (1.5-5.0); LYMPH % 12.6 % (24.0-44.0); MEAN CORPUSCULAR HEMOGLOBIN 28.1 pg (27.0-33.0); MEAN CORPUSCULAR HGB CONC 31.5 g/dl (32.0-36.5); MEAN CORPUSCULAR VOLUME 89.2 fl (80.0-96.0); MONO # 1.2 10^3/uL (0.0-0.8); MONO % 9.9 % (2.0-8.0); NEUTROPHILS # 8.6 10^3/uL (1.5-8.5); NEUTROPHILS % 73.8 % (36.0-66.0); PLATELET COUNT, AUTOMATED 266 10^3/uL (150-450); RED BLOOD COUNT 4.45 10^6/uL (4.30-6.10); WHITE BLOOD COUNT 11.6 10^3/uL (4.0-10.0)
[2022-09-25 21:25] LABS: LIPASE 94 U/L (12-53)
[2022-09-25 21:27] LABS: ALBUMIN 2.5 G/DL (3.2-5.2); ALKALINE PHOSPHATASE 72 U/L (46-116); ALT/SGPT 16 U/L (7.0-40); AST/SGOT 27 U/L (<34); BILIRUBIN,DIRECT < 0.1 MG/DL (<0.4); BILIRUBIN,TOTAL 0.2 MG/DL (0.3-1.2); BLOOD UREA NITROGEN 46 MG/DL (9-23); CALCIUM LEVEL 7.8 MG/DL (8.5-10.1); CARBON DIOXIDE LEVEL 22 MMOL/L (20-31); CHLORIDE LEVEL 112 MMOL/L (98-107); CREATININE FOR GFR 3.12 MG/DL (0.70-1.30); GLOMERULAR FILTRATION RATE 22.7 (>56); GLUCOSE, FASTING 107 MG/DL (60-100); POTASSIUM SERUM 4.2 MMOL/L (3.5-5.1); SODIUM LEVEL 144 MMOL/L (136-145); TOTAL PROTEIN 5.8 G/DL (5.7-8.2)
[2022-09-25 21:30] LABS: THYROID STIMULATING HORMONE 3.048 uIU/ML (0.55-4.78)
[2022-09-25 21:31] LABS: FREE T4 0.91 NG/DL (0.89-1.76)
[2022-09-25 21:36] LABS: RSV AMPLIFICATION NEGATIVE (NEGATIVE)
[2022-09-25 21:43] LABS: CPK CREATINE PHOSPHOKINASE 564 U/L (46-171)
[2022-09-25] MEDS ORDERED: METOPROLOL TART 50 MG TAB PO ONE (23:15)
[2022-09-25] MEDS ORDERED: DEXTROSE 50% 50ML SYRINGE IV PRN (23:50)
[2022-09-25] MEDS ORDERED: GLUCAGON INJ 1MG VIAL SC PRN (23:50)
[2022-09-25] MEDS ORDERED: GLUCOSE 4GM CHEW TABLET PO PRN (23:50)
[2022-09-26] VITALS (8 sets, daily range): BP systolic 126–179; BP diastolic 60–102
[2022-09-26] MEDS ORDERED: hydrALAZINE 20MG/ML 1ML VIAL IV PRN (01:45)
[2022-09-26] MEDS ORDERED: TOUJ300I2 SC (02:10)
[2022-09-26] MEDS ORDERED: ASPI-161 PO (02:10)
[2022-09-26] MEDS ORDERED: LISI40TA4 PO (02:10)
[2022-09-26] MEDS ORDERED: TOPR100T PO (02:10)
[2022-09-26] MEDS ORDERED: PANT40TA29 PO (02:11)
[2022-09-26] MEDS ORDERED: NITR4TASL SL (02:11)
[2022-09-26] MEDS ORDERED: ISOS1TAB35 PO (02:11)
[2022-09-26] MEDS ORDERED: PANT-23 PO (02:11)
[2022-09-26] MEDS ORDERED: JARD1TAB PO (02:11)
[2022-09-26] MEDS ORDERED: HYDR-3911 PO (02:11)
[2022-09-26] MEDS ORDERED: FINE10TA PO (02:11)
[2022-09-26] MEDS ORDERED: GABA-282 PO (02:11)
[2022-09-26] MEDS ORDERED: HOME MED LIST COMPLETE! XX SCH (02:15)
[2022-09-26 06:59] LABS: BASO # 0.1 10^3/uL (0.0-0.2); BASO % 0.5 % (0.0-1.0); EOS # 0.3 10^3/uL (0.0-0.5); EOS % 2.9 % (0.0-3.0); HEMATOCRIT 36.4 % (42.0-52.0); HEMOGLOBIN 11.5 g/dl (13.5-17.5); LYMPH # 1.8 10^3/uL (1.5-5.0); LYMPH % 15.9 % (24.0-44.0); MEAN CORPUSCULAR HEMOGLOBIN 28.1 pg (27.0-33.0); MEAN CORPUSCULAR HGB CONC 31.6 g/dl (32.0-36.5); MONO % 9.5 % (2.0-8.0); NEUTROPHILS # 7.8 10^3/uL (1.5-8.5); NEUTROPHILS % 70.9 % (36.0-66.0); PLATELET COUNT, AUTOMATED 225 10^3/uL (150-450); RED BLOOD COUNT 4.09 10^6/uL (4.30-6.10)
[2022-09-26] MEDS: HEPARIN SOD (PORCINE) 5000UNITS/ML 1ML VIAL/SYRINGE SQ SCH ×3 (07:05→22:24)
[2022-09-26] MEDS: INSULIN LISPRO (NovoLOG) PER UNIT SC SCH ×4 (07:26→20:41)
[2022-09-26 07:42] LABS: HEMOGLOBIN A1c 7.6 % (4.0-6.0); MAGNESIUM LEVEL 1.7 MG/DL (1.8-2.4)
[2022-09-26 07:43] LABS: CREATININE FOR GFR 3.32 MG/DL (0.70-1.30); GLOMERULAR FILTRATION RATE 21.1 (>56); POTASSIUM SERUM 3.9 MMOL/L (3.5-5.1)
[2022-09-26] MEDS ORDERED: FUROSEMIDE 20MG/2ML VIAL IV SCH (09:00)
[2022-09-26] MEDS ORDERED: ENOXAPARIN 40MG/0.4ML SYRINGE (J1650 PER 10MG) SC SCH (09:00)
[2022-09-26 09:05] LABS: CHOLESTEROL RISK RATIO 5.71 (<5); HDL CHOLESTEROL 35.9 MG/DL (>40); LDL CHOLESTEROL 139.9 MG/DL (<100)
[2022-09-26] MEDS: ISOSORBIDE DIN. (ISORDIL) 20 MG TAB PO SCH ×2 (11:52→18:08)
[2022-09-26] MEDS ORDERED: METOPROLOL TART 25 MG TABLET PO SCH (12:00)
[2022-09-26] MEDS ORDERED: **hydrALAZINE** 10 MG TAB PO SCH (12:00)
[2022-09-26] MEDS ORDERED: LEVALBUTEROL 1.25MG 0.5ML CONCENTRATE NEB INH PRN (12:20)
[2022-09-26 12:42] LABS: MB/CK RELATIVE INDEX 1.06 (< OR =4)
[2022-09-26 12:43] LABS: CK-MB VALUE MASS 6.3 NG/ML (<3.6); MB/CK RELATIVE INDEX 1.21 (< OR =4)
[2022-09-26 12:43] LABS: CK-MB VALUE MASS 5.3 NG/ML (<3.6); MB/CK RELATIVE INDEX 1.39 (< OR =4)
[2022-09-26] MEDS: MOXIFLOXACIN 400 MG TAB PO SCH (12:58)
[2022-09-26] MEDS: **hydrALAZINE** 10 MG TAB PO SCH ×2 (14:24→20:40)
[2022-09-26] MEDS: FUROSEMIDE 40MG/4ML VIAL IV SCH (15:51)
[2022-09-27] VITALS (7 sets, daily range): BP systolic 151–182; BP diastolic 74–104
[2022-09-27] MEDS: FUROSEMIDE 40MG/4ML VIAL IV SCH ×2 (00:22→08:57)
[2022-09-27] MEDS: ISOSORBIDE DIN. (ISORDIL) 20 MG TAB PO SCH ×2 (00:22→05:10)
[2022-09-27] MEDS: ACETAMINOPHEN TAB 650MG DOSE (2X325MG) PO PRN ×2 (00:23→20:55)
[2022-09-27] MEDS: **hydrALAZINE** 10 MG TAB PO SCH (02:57)
[2022-09-27] MEDS: MOXIFLOXACIN 400 MG TAB PO SCH (05:09)
[2022-09-27] MEDS: HEPARIN SOD (PORCINE) 5000UNITS/ML 1ML VIAL/SYRINGE SQ SCH ×3 (05:09→20:59)
[2022-09-27] MEDS: INSULIN LISPRO (NovoLOG) PER UNIT SC SCH ×4 (07:30→20:56)
[2022-09-27 08:27] LABS: BASO # 0.1 10^3/uL (0.0-0.2); BASO % 0.6 % (0.0-1.0); EOS # 0.4 10^3/uL (0.0-0.5); EOS % 3.5 % (0.0-3.0); HEMATOCRIT 35.5 % (42.0-52.0); HEMOGLOBIN 11.4 g/dl (13.5-17.5); LYMPH # 1.9 10^3/uL (1.5-5.0); LYMPH % 18.7 % (24.0-44.0); MEAN CORPUSCULAR HEMOGLOBIN 28.7 pg (27.0-33.0); MEAN CORPUSCULAR HGB CONC 32.1 g/dl (32.0-36.5); MEAN CORPUSCULAR VOLUME 89.4 fl (80.0-96.0); MONO # 1.1 10^3/uL (0.0-0.8); MONO % 10.8 % (2.0-8.0); NEUTROPHILS # 6.6 10^3/uL (1.5-8.5); NEUTROPHILS % 66.1 % (36.0-66.0); PLATELET COUNT, AUTOMATED 234 10^3/uL (150-450); RED BLOOD COUNT 3.97 10^6/uL (4.30-6.10); WHITE BLOOD COUNT 9.9 10^3/uL (4.0-10.0)
[2022-09-27 08:39] LABS: CK-MB VALUE MASS 4.6 NG/ML (<3.6)
[2022-09-27 08:40] LABS: MAGNESIUM LEVEL 1.6 MG/DL (1.8-2.4)
[2022-09-27 08:42] LABS: ALBUMIN 2.1 G/DL (3.2-5.2); CALCIUM LEVEL 7.7 MG/DL (8.5-10.1); CREATININE FOR GFR 3.28 MG/DL (0.70-1.30); GLOMERULAR FILTRATION RATE 21.4 (>56); PHOSPHORUS LEVEL 4.7 MG/DL (2.5-4.9); POTASSIUM SERUM 3.9 MMOL/L (3.5-5.1)
[2022-09-27 08:49] LABS: MB/CK RELATIVE INDEX 1.42 (< OR =4)
[2022-09-27] MEDS ORDERED: MAGNESIUM OXIDE 400MG TAB (MAG-OX) PO ONE (10:35)
[2022-09-27] MEDS: POTASSIUM CHLORIDE 10MEQ SR TABLET PO SCH (10:50)
[2022-09-27] MEDS ORDERED: **hydrALAZINE** 50 MG TAB PO ONE (10:55)
[2022-09-27] MEDS: TORSEMIDE 20 MG TAB PO SCH (17:13)
[2022-09-27] MEDS: **hydrALAZINE** 50 MG TAB PO SCH (20:54)
[2022-09-27] MEDS: MAGNESIUM OXIDE 400MG TAB (MAG-OX) PO SCH (20:55)
[2022-09-28 05:30] VITALS: BP 172/109
[2022-09-28] MEDS: HEPARIN SOD (PORCINE) 5000UNITS/ML 1ML VIAL/SYRINGE SQ SCH ×3 (05:58→21:32)
[2022-09-28] MEDS: MOXIFLOXACIN 400 MG TAB PO SCH (05:58)
[2022-09-28] MEDS ORDERED: **hydrALAZINE HCL** 25 MG TAB PO ONE (06:10)
[2022-09-28 06:38] LABS: MAGNESIUM LEVEL 1.9 MG/DL (1.8-2.4)
[2022-09-28 07:04] VITALS: BP 170/88
[2022-09-28] MEDS ORDERED: ISOSORBIDE DIN. (ISORDIL) 30 MG TAB PO ONE (07:50)
[2022-09-28] MEDS ORDERED: **hydrALAZINE** 50 MG TAB PO ONE (07:55)
[2022-09-28] MEDS ORDERED: TORSEMIDE 20 MG TAB PO ONE (07:55)
[2022-09-28 08:04] LABS: CALCIUM LEVEL 7.8 MG/DL (8.5-10.1); CREATININE FOR GFR 3.34 MG/DL (0.70-1.30); GLOMERULAR FILTRATION RATE 20.9 (>56); POTASSIUM SERUM 4.2 MMOL/L (3.5-5.1)
[2022-09-28] MEDS: POTASSIUM CHLORIDE 10MEQ SR TABLET PO SCH (08:09)
[2022-09-28] MEDS: MAGNESIUM OXIDE 400MG TAB (MAG-OX) PO SCH ×2 (08:09→21:33)
[2022-09-28 08:10] LABS: CK-MB VALUE MASS 4.8 NG/ML (<3.6)
[2022-09-28] MEDS: INSULIN LISPRO (NovoLOG) PER UNIT SC SCH ×4 (08:10→21:00)
[2022-09-28 08:11] LABS: MB/CK RELATIVE INDEX 1.61 (< OR =4)
[2022-09-28] MEDS ORDERED: METOPROLOL SUCC *XL* 25MG TAB (TopROL *XL*) PO SCH (09:00)
[2022-09-28 09:14] VITALS: BP 112/71
[2022-09-28] MEDS ORDERED: TORS20TA2 PO (10:15)
[2022-09-28] MEDS ORDERED: MOXI400T11 PO (10:15)
[2022-09-28] MEDS ORDERED: SELF1KIT MC (10:17)
[2022-09-28] MEDS: ACETAMINOPHEN TAB 650MG DOSE (2X325MG) PO PRN (10:45)
[2022-09-28] MEDS ORDERED: METOCLOPRAMIDE INJ 10MG/2ML VIAL IV ONE (11:30)
[2022-09-28] MEDS ORDERED: ACETAMINOPHEN 500 MG TAB PO ONE (11:30)
[2022-09-28 14:00] VITALS: BP_SYST 145; BP_SYST 152; BP_DIAS 104; BP_DIAS 108
[2022-09-28 14:57] VITALS: BP 133/78
[2022-09-28] MEDS: TORSEMIDE 20 MG TAB PO SCH (17:47)
[2022-09-28 20:00] VITALS: BP 147/98
[2022-09-28] MEDS: **hydrALAZINE** 50 MG TAB PO SCH (21:34)
[2022-09-29 06:00] VITALS: BP 143/92
[2022-09-29] MEDS: HEPARIN SOD (PORCINE) 5000UNITS/ML 1ML VIAL/SYRINGE SQ SCH (06:29)
[2022-09-29] MEDS: MOXIFLOXACIN 400 MG TAB PO SCH (06:29)
[2022-09-29 08:20] VITALS: BP 136/78
[2022-09-29 08:33] LABS: HEMOGLOBIN 12.4 g/dl (13.5-17.5); MEAN CORPUSCULAR HEMOGLOBIN 28.4 pg (27.0-33.0); MEAN CORPUSCULAR HGB CONC 31.8 g/dl (32.0-36.5); MEAN CORPUSCULAR VOLUME 89.4 fl (80.0-96.0); PLATELET COUNT, AUTOMATED 241 10^3/uL (150-450); RED BLOOD COUNT 4.36 10^6/uL (4.30-6.10); WHITE BLOOD COUNT 8.8 10^3/uL (4.0-10.0)
[2022-09-29 08:53] LABS: CALCIUM LEVEL 7.8 MG/DL (8.5-10.1); CREATININE FOR GFR 3.32 MG/DL (0.70-1.30); GLOMERULAR FILTRATION RATE 21.1 (>56); POTASSIUM SERUM 4.1 MMOL/L (3.5-5.1)
[2022-09-29] MEDS ORDERED: METOPROLOL SUCC (TopROL XL) 100MG *XL* TAB PO SCH (09:00)
[2022-09-29] MEDS: INSULIN LISPRO (NovoLOG) PER UNIT SC SCH ×2 (09:22→12:35)
[2022-09-29] MEDS: TORSEMIDE 20 MG TAB PO SCH (09:24)
[2022-09-29] MEDS: POTASSIUM CHLORIDE 10MEQ SR TABLET PO SCH (09:24)
[2022-09-29 09:25] VITALS: BP 136/78
[2022-09-29] MEDS: MAGNESIUM OXIDE 400MG TAB (MAG-OX) PO SCH (09:25)
[2022-09-29] MEDS: **hydrALAZINE** 50 MG TAB PO SCH (09:26)
[2022-09-29 10:01] LABS: CK-MB VALUE MASS 3.4 NG/ML (<3.6)
[2022-09-29 10:02] LABS: MB/CK RELATIVE INDEX 1.35 (< OR =4)
== END 2022-09-29 13:44 | disposition home or self-care (01) | DRG 194 ==
LOC: M ED 18:40 → M ED INP 23:50 → ENRESERV 09-26 14:14 → M PCU 09-26 15:15 → M MSPAV 09-28 03:54
PROVIDERS: ADMIT Family Medicine; ATTEND General Practice
DX: I13.0 Hypertensive heart and chronic kidney disease with heart failure and stage 1 through stage 4 chronic kidney disease, or unspecified chronic kidney disease (principal); J18.9 Pneumonia, unspecified organism; N17.9 Acute kidney failure, unspecified; E11.22 Type 2 diabetes mellitus with diabetic chronic kidney disease; N18.4 Chronic kidney disease, stage 4 (severe); Z95.2 Presence of prosthetic heart valve; Z95.1 Presence of aortocoronary bypass graft; D64.9 Anemia, unspecified; I16.0 Hypertensive urgency; I25.10 Atherosclerotic heart disease of native coronary artery without angina pectoris; K21.9 Gastro-esophageal reflux disease without esophagitis; Z79.4 Long term (current) use of insulin; Z79.899 Other long term (current) drug therapy; Z79.82 Long term (current) use of aspirin; I50.31 Acute diastolic (congestive) heart failure

== ENCOUNTER → 2022-10-09 | Outpatient (REF) | payer BC, OTHER, MEDICAID ==
[~2022-10-09] MED LIST changes: +ASPI-161 PO; +FINE10TA PO; +HYDR-3911 PO; +ISOS1TAB35 PO; +JARD1TAB PO; +LISI40TA4 PO; +MOXI400T11 PO; +NITR4TASL SL; +PANT-23 PO; +SELF1KIT MC; +TOPR100T PO; +TORS20TA2 PO; +TOUJ300I2 SC
[2022-10-09 18:55] LABS: CREATININE, URINE 61.5 MG/DL
[2022-10-09 19:10] LABS: MAU/CREAT RATIO 5627.6 MCG/MG (0.0-30.0)
== END ==
LOC: M LAB REF 16:41
PROVIDERS: ATTEND Internal Medicine Nephrology
DX: N18.32 Chronic kidney disease, stage 3b (principal)

== ENCOUNTER → 2022-11-17 | Outpatient (CLI) | payer BC, OTHER | LOC: M RAD 08:58 | PROVIDERS: ATTEND Physician Assistant | DX: E11.622 Type 2 diabetes mellitus with other skin ulcer (principal); R68.89 Other general symptoms and signs; I73.9 Peripheral vascular disease, unspecified ==

== ENCOUNTER → 2022-11-29 | Outpatient (CLI) | payer BC, OTHER ==
[2022-11-29 14:17] LABS: CALCIUM LEVEL 8.2 MG/DL (8.5-10.1); CREATININE FOR GFR 4.81 MG/DL (0.70-1.30); GLOMERULAR FILTRATION RATE 13.7 (>56); POTASSIUM SERUM 4.8 MMOL/L (3.5-5.1)
== END ==
LOC: M PLALAB 10:19
PROVIDERS: ATTEND Student in an Organized Health Care Education/Training Program
DX: I10 Essential (primary) hypertension (principal); R06.00 Dyspnea, unspecified

== ENCOUNTER → 2022-12-04 | Outpatient (CLI) | payer BC, OTHER ==
[2022-12-04 18:00] LABS: CALCIUM LEVEL 8.3 MG/DL (8.5-10.1); CREATININE FOR GFR 3.47 MG/DL (0.70-1.30); POTASSIUM SERUM 4.4 MMOL/L (3.5-5.1)
== END ==
LOC: M LAB 16:58
PROVIDERS: ATTEND Student in an Organized Health Care Education/Training Program
DX: N17.9 Acute kidney failure, unspecified (principal)

== ENCOUNTER → 2022-12-04 | Outpatient (CLI) | payer BC, OTHER | LOC: M RAD 11:32 | PROVIDERS: ATTEND Physician Assistant | DX: E11.622 Type 2 diabetes mellitus with other skin ulcer (principal); L97.922 Non-pressure chronic ulcer of unspecified part of left lower leg with fat layer exposed; I87.303 Chronic venous hypertension (idiopathic) without complications of bilateral lower extremity ==

== ENCOUNTER → 2022-12-20 | Outpatient (CLI) | payer BC, MEDICAID ==
[~2022-12-20] MED LIST changes: +DOXY-444 PO; +HYDR100T PO; +PRED50TA PO; +TORS100T PO
[2022-12-20 14:13] LABS: BASO # 0.1 10^3/uL (0.0-0.2); BASO % 0.7 % (0.0-1.0); EOS # 0.4 10^3/uL (0.0-0.5); EOS % 3.1 % (0.0-3.0); HEMATOCRIT 40.4 % (42.0-52.0); LYMPH # 1.8 10^3/uL (1.5-5.0); LYMPH % 15.4 % (24.0-44.0); MEAN CORPUSCULAR HGB CONC 32.2 g/dl (32.0-36.5); MEAN CORPUSCULAR VOLUME 86.9 fl (80.0-96.0); MONO # 0.9 10^3/uL (0.0-0.8); MONO % 7.4 % (2.0-8.0); NEUTROPHILS # 8.4 10^3/uL (1.5-8.5); NEUTROPHILS % 73.1 % (36.0-66.0); PLATELET COUNT, AUTOMATED 278 10^3/uL (150-450); RED BLOOD COUNT 4.65 10^6/uL (4.30-6.10); WHITE BLOOD COUNT 11.5 10^3/uL (4.0-10.0)
[2022-12-20 14:25] LABS: ALBUMIN 2.8 G/DL (3.2-5.2); BILIRUBIN,TOTAL 0.3 MG/DL (0.3-1.2); CALCIUM LEVEL 8.4 MG/DL (8.5-10.1); CREATININE FOR GFR 4.36 MG/DL (0.70-1.30); GLOMERULAR FILTRATION RATE 15.4 (>56); MAGNESIUM LEVEL 1.8 MG/DL (1.8-2.4); POTASSIUM SERUM 5.2 MMOL/L (3.5-5.1); TOTAL PROTEIN 6.4 G/DL (5.7-8.2)
== END ==
LOC: M PLALAB 11:59
PROVIDERS: ATTEND Student in an Organized Health Care Education/Training Program
DX: M70.61 Trochanteric bursitis, right hip (principal)

== ENCOUNTER 2022-12-21 12:19 | Observation (INO) | payer BC, MEDICAID ==
[~2022-12-21] VITALS: Ht 182.9 cm; Wt 119.1 kg
[~2022-12-21 12:19] MED LIST changes: -DOXY-444 PO; -HYDR100T PO; -PRED50TA PO; -TORS100T PO
[2022-12-21] MEDS ORDERED: NS 1,000 ML IV ONE (12:50)
[2022-12-21 13:56] LABS: BASO # 0.1 10^3/uL (0.0-0.2); BASO % 0.7 % (0.0-1.0); EOS # 0.3 10^3/uL (0.0-0.5); EOS % 2.8 % (0.0-3.0); HEMATOCRIT 36.3 % (42.0-52.0); HEMOGLOBIN 11.8 g/dl (13.5-17.5); LYMPH # 1.4 10^3/uL (1.5-5.0); LYMPH % 14.5 % (24.0-44.0); MEAN CORPUSCULAR HGB CONC 32.5 g/dl (32.0-36.5); MONO # 0.9 10^3/uL (0.0-0.8); MONO % 9.3 % (2.0-8.0); NEUTROPHILS # 7.1 10^3/uL (1.5-8.5); NEUTROPHILS % 72.3 % (36.0-66.0); PLATELET COUNT, AUTOMATED 232 10^3/uL (150-450); RED BLOOD COUNT 4.22 10^6/uL (4.30-6.10); WHITE BLOOD COUNT 9.8 10^3/uL (4.0-10.0)
[2022-12-21 14:06] LABS: INR 0.99; PROTHROMBIN TIME 13.3 SECONDS (12.5-14.5)
[2022-12-21 14:07] LABS: PARTIAL THROMBOPLASTIN TIME 31.7 SECONDS (24.8-34.2)
[2022-12-21 14:21] LABS: LIPASE 181 U/L (12-53)
[2022-12-21 14:27] LABS: ALBUMIN 2.5 G/DL (3.2-5.2); ALKALINE PHOSPHATASE 78 U/L (46-116); ALT/SGPT 22 U/L (7.0-40); AST/SGOT 20 U/L (<34); BILIRUBIN,DIRECT < 0.1 MG/DL (<0.4); BILIRUBIN,TOTAL 0.2 MG/DL (0.3-1.2); BLOOD UREA NITROGEN 79 MG/DL (9-23); CALCIUM LEVEL 8.2 MG/DL (8.5-10.1); CARBON DIOXIDE LEVEL 23 MMOL/L (20-31); CHLORIDE LEVEL 103 MMOL/L (98-107); CREATININE FOR GFR 4.62 MG/DL (0.70-1.30); GLOMERULAR FILTRATION RATE 14.4 (>56); GLUCOSE, FASTING 404 MG/DL (60-100); POTASSIUM SERUM 4.9 MMOL/L (3.5-5.1); SODIUM LEVEL 135 MMOL/L (136-145); TOTAL PROTEIN 5.7 G/DL (5.7-8.2)
[2022-12-21 14:36] LABS: RSV AMPLIFICATION NEGATIVE (NEGATIVE)
[2022-12-21] MEDS ORDERED: HumuLIN R (REGULAR) INSULIN (NovoLIN R) **100U/ML** PER UNIT IV ONE (15:25)
[2022-12-21 16:47] LABS: CREATININE,RANDOM URINE 60.5 MG/DL
[2022-12-21 16:52] LABS: TOTAL PROTEIN,RANDOM URINE 303.2 MG/DL (0.0-14.0)
[2022-12-21] MEDS ORDERED: LISI40TA4 PO (17:39)
[2022-12-21] MEDS ORDERED: TORS100T PO (17:39)
[2022-12-21] MEDS ORDERED: HYDR100T PO (17:43)
[2022-12-21] MEDS ORDERED: HOME MED LIST COMPLETE! XX SCH (17:45)
[2022-12-21 17:55] LABS: URIC ACID 10.6 MG/DL (3.7-9.2)
[2022-12-21] MEDS ORDERED: DEXTROSE 50% 50ML SYRINGE IV PRN (17:55)
[2022-12-21] MEDS ORDERED: ACETAMINOPHEN TAB 650MG DOSE (2X325MG) PO PRN (17:55)
[2022-12-21] MEDS ORDERED: GLUCOSE 4GM CHEW TABLET PO PRN (17:55)
[2022-12-21] MEDS ORDERED: GLUCAGON INJ 1MG VIAL SC PRN (17:55)
[2022-12-21] MEDS ORDERED: MOM 30ML SUSPENSION UDC PO PRN (17:55)
[2022-12-21 17:56] LABS: OSMOLALITY SERUM 316 MOSM/KG (275-295)
[2022-12-21 17:57] LABS: CPK CREATINE PHOSPHOKINASE 548 U/L (46-171)
[2022-12-21 17:58] LABS: ALBUMIN 2.5 G/DL (3.2-5.2); ALKALINE PHOSPHATASE 75 U/L (46-116); ALT/SGPT 17 U/L (7.0-40); AST/SGOT 23 U/L (<34); BILIRUBIN,TOTAL < 0.2 MG/DL (0.3-1.2); BLOOD UREA NITROGEN 78 MG/DL (9-23); CALCIUM LEVEL 8.1 MG/DL (8.5-10.1); CARBON DIOXIDE LEVEL 24 MMOL/L (20-31); CHLORIDE LEVEL 108 MMOL/L (98-107); CREATININE FOR GFR 4.42 MG/DL (0.70-1.30); GLOMERULAR FILTRATION RATE 15.2 (>56); GLUCOSE, FASTING 135 MG/DL (60-100); MAGNESIUM LEVEL 2.3 MG/DL (1.8-2.4); POTASSIUM SERUM 4.6 MMOL/L (3.5-5.1); SODIUM LEVEL 139 MMOL/L (136-145); TOTAL PROTEIN 5.8 G/DL (5.7-8.2)
[2022-12-21] MEDS ORDERED: LR 1,000 ML IV SCH (19:20)
[2022-12-21] MEDS ORDERED: INSULIN LISPRO (NovoLOG) PER UNIT SC SCH (21:00)
[2022-12-21] MEDS: DOCUSATE SODIUM 100MG CAPSULE PO SCH (21:22)
[2022-12-21] MEDS: **hydrALAZINE** 50 MG TAB PO SCH (21:22)
[2022-12-21 21:48] VITALS: BP 176/98
[2022-12-21 23:38] VITALS: BP 176/92
[2022-12-21] MEDS ORDERED: cloNIDine 0.1MG TABLET PO ONE (23:40)
[2022-12-22 02:00] VITALS: BP_SYST 158; BP_SYST 183; BP_DIAS 90
[2022-12-22 05:53] VITALS: BP 148/68
[2022-12-22] MEDS: HEPARIN SOD (PORCINE) 5000UNITS/ML 1ML VIAL/SYRINGE SQ SCH ×2 (05:58→13:08)
[2022-12-22 06:00] VITALS: BP 148/68
[2022-12-22 06:16] LABS: HEMATOCRIT 35.7 % (42.0-52.0); HEMOGLOBIN 11.4 g/dl (13.5-17.5); MEAN CORPUSCULAR HEMOGLOBIN 28.2 pg (27.0-33.0); MEAN CORPUSCULAR HGB CONC 31.9 g/dl (32.0-36.5); MEAN CORPUSCULAR VOLUME 88.4 fl (80.0-96.0); PLATELET COUNT, AUTOMATED 228 10^3/uL (150-450); RED BLOOD COUNT 4.04 10^6/uL (4.30-6.10); WHITE BLOOD COUNT 10.1 10^3/uL (4.0-10.0)
[2022-12-22 06:55] LABS: ALBUMIN 2.3 G/DL (3.2-5.2); CALCIUM LEVEL 8.1 MG/DL (8.5-10.1); CREATININE FOR GFR 4.11 MG/DL (0.70-1.30); GLOMERULAR FILTRATION RATE 16.5 (>56); PHOSPHORUS LEVEL 5.8 MG/DL (2.5-4.9); POTASSIUM SERUM 4.7 MMOL/L (3.5-5.1)
[2022-12-22] MEDS ORDERED: METOPROLOL SUCC (TopROL XL) 100MG *XL* TAB PO SCH (09:00)
[2022-12-22] MEDS ORDERED: ASPIRIN 81MG ENTERIC TABLET PO SCH (09:00)
[2022-12-22] MEDS ORDERED: ATORVASTATIN 20 MG TAB PO SCH (09:00)
[2022-12-22] MEDS ORDERED: PANTOPRAZOLE 40MG TAB (PROTONIX) PO SCH (09:00)
[2022-12-22] MEDS ORDERED: CLOPIDOGREL 75 MG TAB PO SCH (09:00)
[2022-12-22] MEDS: INSULIN LISPRO (NovoLOG) PER UNIT SC SCH ×2 (09:09→13:08)
[2022-12-22 09:10] VITALS: BP 182/96
[2022-12-22] MEDS: **hydrALAZINE** 50 MG TAB PO SCH (09:10)
[2022-12-22] MEDS: DOCUSATE SODIUM 100MG CAPSULE PO SCH (09:10)
[2022-12-22 10:00] VITALS: BP 138/92
[2022-12-22] MEDS ORDERED: TORS100T PO (10:47)
[2022-12-22] MEDS ORDERED: HYDR100T PO (10:47)
[2022-12-22 14:00] VITALS: BP 138/72
[2022-12-22] MEDS ORDERED: GABAPENTIN 300 MG CAP PO ONE (14:20)
[2022-12-22] MEDS ORDERED: DOXY-444 PO (14:22)
[2022-12-22] MEDS ORDERED: PRED50TA PO (18:17)
== END 2022-12-22 15:15 | disposition home or self-care (01) ==
LOC: M ED 12:19 → M ED INP 17:51 → ENRESERV 20:23 → M MSPAV 21:48
PROVIDERS: ADMIT Student in an Organized Health Care Education/Training Program; ATTEND Student in an Organized Health Care Education/Training Program
DX: N18.4 Chronic kidney disease, stage 4 (severe) (principal); E11.40 Type 2 diabetes mellitus with diabetic neuropathy, unspecified; M10.9 Gout, unspecified; E11.621 Type 2 diabetes mellitus with foot ulcer; E11.65 Type 2 diabetes mellitus with hyperglycemia; I12.9 Hypertensive chronic kidney disease with stage 1 through stage 4 chronic kidney disease, or unspecified chronic kidney disease; I25.10 Atherosclerotic heart disease of native coronary artery without angina pectoris; Z95.1 Presence of aortocoronary bypass graft; Z86.73 Personal history of transient ischemic attack (TIA), and cerebral infarction without residual deficits; K21.9 Gastro-esophageal reflux disease without esophagitis; E78.5 Hyperlipidemia, unspecified; I50.33 Acute on chronic diastolic (congestive) heart failure; Z79.82 Long term (current) use of aspirin; Z79.899 Other long term (current) drug therapy; Z79.4 Long term (current) use of insulin; Z79.52 Long term (current) use of systemic steroids
CPT/HCPCS: 36415; 76775; 80048; 80053; 80069; 80076; 82330; 82550; 82570; 83690; 83735; 83930; 83935; 84133; 84156; 84300; 84550; 85025; 85027; 85610; 85730; 87631; 93005; 93041; 93971; 96361; 96372; 96374; 96375; 99285; J1815

== ENCOUNTER 2023-01-25 15:05 | Observation (INO) | payer BC, MEDICAID ==
[~2023-01-25] VITALS: Ht 182.9 cm; Wt 118.9 kg
[~2023-01-25 15:05] MED LIST changes: +DOXY-444 PO; +HYDR100T PO; +PRED50TA PO; +TORS100T PO
[2023-01-25 16:23] VITALS: BP_SYST 156; BP_SYST 162; BP_DIAS 86; BP_DIAS 99
[2023-01-25] MEDS ORDERED: ACETAMINOPHEN TAB 650MG DOSE (2X325MG) PO PRN (17:05)
[2023-01-25] MEDS ORDERED: GLUCOSE 4GM CHEW TABLET PO PRN (17:05)
[2023-01-25] MEDS ORDERED: DEXTROSE 50% 50ML SYRINGE IV PRN (17:05)
[2023-01-25] MEDS ORDERED: GLUCAGON INJ 1MG VIAL SC PRN (17:05)
[2023-01-25 17:47] LABS: HEMATOCRIT 34.8 % (42.0-52.0); HEMOGLOBIN 11.2 g/dl (13.5-17.5); MEAN CORPUSCULAR HEMOGLOBIN 27.8 pg (27.0-33.0); MEAN CORPUSCULAR HGB CONC 32.2 g/dl (32.0-36.5); MEAN CORPUSCULAR VOLUME 86.4 fl (80.0-96.0); PLATELET COUNT, AUTOMATED 308 10^3/uL (150-450); RED BLOOD COUNT 4.03 10^6/uL (4.30-6.10); WHITE BLOOD COUNT 9.2 10^3/uL (4.0-10.0)
[2023-01-25] MEDS: NS 1,000 ML IV SCH (17:57)
[2023-01-25] MEDS: INSULIN LISPRO (NovoLOG) PER UNIT SC SCH ×2 (18:00→20:02)
[2023-01-25 18:04] LABS: PARTIAL THROMBOPLASTIN TIME 32.3 SECONDS (24.8-34.2); PROTHROMBIN TIME 13.4 SECONDS (12.5-14.5)
[2023-01-25 18:16] LABS: ALBUMIN 2.1 G/DL (3.2-5.2); BILIRUBIN,TOTAL 0.2 MG/DL (0.3-1.2); CALCIUM LEVEL 7.9 MG/DL (8.5-10.1); CREATININE FOR GFR 3.64 MG/DL (0.70-1.30); POTASSIUM SERUM 3.6 MMOL/L (3.5-5.1); TOTAL PROTEIN 5.4 G/DL (5.7-8.2)
[2023-01-25] MEDS ORDERED: HYDR100T PO (19:33)
[2023-01-25] MEDS ORDERED: LISI40TA4 PO (19:46)
[2023-01-25] MEDS ORDERED: ISOS1TAB35 PO (19:46)
[2023-01-25] MEDS ORDERED: CLON-412 PO (19:46)
[2023-01-25] MEDS ORDERED: TORS100T PO (19:46)
[2023-01-25] MEDS ORDERED: PATIENT COMMENT (19:46)
[2023-01-25] MEDS ORDERED: DULA3PEN SQ (19:46)
[2023-01-25] MEDS ORDERED: HOME MED LIST COMPLETE! XX SCH (19:55)
[2023-01-25] MEDS: ceFAZolin SOD 1 GM in D5W MINI-BAG PLUS 50 ML IV SCH (20:10)
[2023-01-25 21:00] VITALS: BP 154/60
[2023-01-25] MEDS ORDERED: NITROGLYCERIN 0.4MG SUBL TABLET SL PRN (21:35)
[2023-01-25] MEDS: GABAPENTIN 300 MG CAP PO SCH (21:49)
[2023-01-25] MEDS: **hydrALAZINE** 50 MG TAB PO SCH (21:49)
[2023-01-26] MEDS: ceFAZolin SOD 1 GM in D5W MINI-BAG PLUS 50 ML IV SCH ×3 (03:43→20:06)
[2023-01-26 06:00] VITALS: BP 148/62
[2023-01-26] MEDS: NS 1,000 ML IV SCH ×2 (06:05→20:06)
[2023-01-26 06:35] LABS: HEMATOCRIT 35.7 % (42.0-52.0); HEMOGLOBIN 11.5 g/dl (13.5-17.5); MEAN CORPUSCULAR HGB CONC 32.2 g/dl (32.0-36.5); MEAN CORPUSCULAR VOLUME 86.9 fl (80.0-96.0); PLATELET COUNT, AUTOMATED 295 10^3/uL (150-450); RED BLOOD COUNT 4.11 10^6/uL (4.30-6.10)
[2023-01-26 06:42] LABS: INR 1.06
[2023-01-26 06:43] LABS: PARTIAL THROMBOPLASTIN TIME 32.9 SECONDS (24.8-34.2)
[2023-01-26 07:02] LABS: BILIRUBIN,TOTAL 0.2 MG/DL (0.3-1.2); CREATININE FOR GFR 3.25 MG/DL (0.70-1.30); GLOMERULAR FILTRATION RATE 21.6 (>56); POTASSIUM SERUM 3.6 MMOL/L (3.5-5.1); TOTAL PROTEIN 5.2 G/DL (5.7-8.2)
[2023-01-26] MEDS ORDERED: fentaNYL 100 MCG/2 ML INJECTION As Ordered ONE (08:28)
[2023-01-26] MEDS ORDERED: ISOVUE-300 61% 100ML VIAL As Ordered ONE (08:28)
[2023-01-26] MEDS ORDERED: HEPARIN 1,000UNITS/ML 10ML VIAL (FOR RADIOLOGY & DIALYSIS ONLY) As Ordered ONE (08:28)
[2023-01-26] MEDS ORDERED: MIDAZOLAM INJ 2MG/2ML VIAL As Ordered ONE (08:28)
[2023-01-26] MEDS ORDERED: LIDOCAINE 1% MDV 20ML VIAL As Ordered ONE (08:28)
[2023-01-26] MEDS: INSULIN LISPRO (NovoLOG) PER UNIT SC SCH ×4 (08:55→20:16)
[2023-01-26] MEDS ORDERED: TORSEMIDE (DEMADEX) 50 MG PER 1/2 TAB PO SCH (09:00)
[2023-01-26] MEDS ORDERED: hydrALAZINE 20MG/ML 1ML VIAL As Ordered ONE (09:15)
[2023-01-26] MEDS ORDERED: LABETALOL 100MG/20ML VIAL As Ordered ONE (09:21)
[2023-01-26] MEDS ORDERED: PAPAVERINE HCL 60MG 2ML VIAL (30MG/ML) As Ordered ONE ×2 (09:48→09:53)
[2023-01-26] MEDS ORDERED: NITROGLYCERIN IN D5W 25MG/250ML (100MCG/ML) As Ordered ONE (10:20)
[2023-01-26] MEDS ORDERED: CLOPIDOGREL 75 MG TAB As Ordered ONE (12:12)
[2023-01-26] MEDS ORDERED: ASPIRIN 81MG CHEW TABLET As Ordered ONE (12:12)
[2023-01-26] MEDS: **hydrALAZINE** 50 MG TAB PO SCH ×3 (12:18→20:09)
[2023-01-26] MEDS ORDERED: ONDANSETRON 4MG 2ML VIAL As Ordered ONE (12:23)
[2023-01-26] MEDS ORDERED: ONDANSETRON 4MG 2ML VIAL IV ONE (12:30)
[2023-01-26] MEDS: ATORVASTATIN 20 MG TAB PO SCH (12:55)
[2023-01-26] MEDS: METOPROLOL SUCC (TopROL XL) 100MG *XL* TAB PO SCH (12:55)
[2023-01-26] MEDS: PANTOPRAZOLE 40MG TAB (PROTONIX) PO SCH (12:55)
[2023-01-26] MEDS: GABAPENTIN 300 MG CAP PO SCH ×2 (12:55→20:06)
[2023-01-26] MEDS: ISOSORBIDE MON. (IMDUR) 30MG XR TAB PO SCH (12:55)
[2023-01-26 13:00] VITALS: BP 156/80
[2023-01-26 13:30] VITALS: BP 152/80
[2023-01-26] MEDS: LEVEMIR (INSULIN DETEMIR) 1 UNITS/0.01ML SC SCH ×2 (13:37→20:20)
[2023-01-26 14:30] VITALS: BP 142/80
[2023-01-26 15:30] VITALS: BP 138/82
[2023-01-26] MEDS ORDERED: CLOPIDOGREL 75 MG TAB PO ONE (15:30)
[2023-01-26] MEDS ORDERED: ASPIRIN 81MG CHEW TABLET PO ONE (15:30)
[2023-01-27] MEDS: ceFAZolin SOD 1 GM in D5W MINI-BAG PLUS 50 ML IV SCH (03:59)
[2023-01-27 05:40] VITALS: BP 138/78
[2023-01-27 06:22] LABS: BASO % 0.3 % (0.0-1.0); EOS # 0.3 10^3/uL (0.0-0.5); EOS % 2.2 % (0.0-3.0); HEMATOCRIT 31.8 % (42.0-52.0); LYMPH # 1.6 10^3/uL (1.5-5.0); LYMPH % 13.3 % (24.0-44.0); MEAN CORPUSCULAR HEMOGLOBIN 27.5 pg (27.0-33.0); MEAN CORPUSCULAR HGB CONC 31.4 g/dl (32.0-36.5); MEAN CORPUSCULAR VOLUME 87.6 fl (80.0-96.0); MONO # 1.4 10^3/uL (0.0-0.8); MONO % 11.9 % (2.0-8.0); NEUTROPHILS # 8.4 10^3/uL (1.5-8.5); NEUTROPHILS % 71.9 % (36.0-66.0); PLATELET COUNT, AUTOMATED 292 10^3/uL (150-450); RED BLOOD COUNT 3.63 10^6/uL (4.30-6.10); WHITE BLOOD COUNT 11.7 10^3/uL (4.0-10.0)
[2023-01-27 06:51] LABS: ALBUMIN 1.8 G/DL (3.2-5.2); BILIRUBIN,TOTAL 0.2 MG/DL (0.3-1.2); CALCIUM LEVEL 7.6 MG/DL (8.5-10.1); CREATININE FOR GFR 3.64 MG/DL (0.70-1.30); POTASSIUM SERUM 3.9 MMOL/L (3.5-5.1); TOTAL PROTEIN 4.8 G/DL (5.7-8.2)
[2023-01-27] MEDS: ATORVASTATIN 20 MG TAB PO SCH (08:19)
[2023-01-27] MEDS: INSULIN LISPRO (NovoLOG) PER UNIT SC SCH (08:20)
[2023-01-27] MEDS: GABAPENTIN 300 MG CAP PO SCH (08:20)
[2023-01-27] MEDS: LEVEMIR (INSULIN DETEMIR) 1 UNITS/0.01ML SC SCH (08:20)
[2023-01-27 08:22] VITALS: BP 138/72
[2023-01-27] MEDS: METOPROLOL SUCC (TopROL XL) 100MG *XL* TAB PO SCH (08:22)
[2023-01-27] MEDS: ISOSORBIDE MON. (IMDUR) 30MG XR TAB PO SCH (08:23)
[2023-01-27] MEDS: **hydrALAZINE** 50 MG TAB PO SCH (08:23)
[2023-01-27] MEDS: PANTOPRAZOLE 40MG TAB (PROTONIX) PO SCH (08:24)
[2023-01-27] MEDS ORDERED: CLOPIDOGREL 75 MG TAB PO SCH (09:00)
[2023-01-27] MEDS ORDERED: ASPIRIN 81MG ENTERIC TABLET PO SCH (09:00)
[2023-01-28] MEDS ORDERED: TORSEMIDE (DEMADEX) 50 MG PER 1/2 TAB PO SCH (09:00)
== END 2023-01-27 10:46 | disposition home or self-care (01) ==
LOC: M MSPAV 16:04
PROVIDERS: ADMIT Internal Medicine; ATTEND Family Medicine
DX: I70.235 Atherosclerosis of native arteries of right leg with ulceration of other part of foot (principal); L97.519 Non-pressure chronic ulcer of other part of right foot with unspecified severity; E11.621 Type 2 diabetes mellitus with foot ulcer; E11.51 Type 2 diabetes mellitus with diabetic peripheral angiopathy without gangrene; E11.42 Type 2 diabetes mellitus with diabetic polyneuropathy; N18.4 Chronic kidney disease, stage 4 (severe); I12.9 Hypertensive chronic kidney disease with stage 1 through stage 4 chronic kidney disease, or unspecified chronic kidney disease; I82.621 Acute embolism and thrombosis of deep veins of right upper extremity; N52.9 Male erectile dysfunction, unspecified; I25.10 Atherosclerotic heart disease of native coronary artery without angina pectoris; Z95.1 Presence of aortocoronary bypass graft; Z98.61 Coronary angioplasty status; Z86.73 Personal history of transient ischemic attack (TIA), and cerebral infarction without residual deficits; Z79.4 Long term (current) use of insulin; Z79.82 Long term (current) use of aspirin; Z79.899 Other long term (current) drug therapy; Z79.52 Long term (current) use of systemic steroids
CPT/HCPCS: 36415; 37228; 37232; 75710; 80053; 83735; 84145; 85025; 85027; 85610; 85730; 86850; 86900; 86901; 87040; 96361; 96365; 96366; 99152; 99153; C1725; C1760; C1769; C1887; C1894; J0360; J0690; J1815; J2250; J2405; J2440; J3010; Q9967

== ENCOUNTER → 2023-01-30 | Outpatient (POV) | payer BC, OTHER ==
[~2023-01-30] VITALS: Ht 182.9 cm; Wt 120.4 kg
[~2023-01-30] MED LIST changes: +CLON-412 PO; +DULA3PEN SQ; +PATIENT COMMENT
[2023-01-30 14:55] VITALS: BP 210/100
== END ==
LOC: M IRPOV 14:43
PROVIDERS: ATTEND Radiology Diagnostic Radiology
DX: Z53.9 Procedure and treatment not carried out, unspecified reason (principal)

== ENCOUNTER → 2023-02-06 | Outpatient (REF) | payer BC, MEDICAID ==
[2023-02-06 17:43] LABS: HEMOGLOBIN A1c 11.8 % (4.0-6.0)
== END ==
LOC: M SFHCWOUN 16:31
PROVIDERS: ATTEND Physician Assistant
DX: E11.622 Type 2 diabetes mellitus with other skin ulcer (principal)

== ENCOUNTER 2023-03-06 11:11 | Inpatient (IN) | payer BC, MEDICAID ==
[~2023-03-06] VITALS: Ht 182.9 cm; Wt 117.8 kg
[2023-03-06] MEDS: LIDOCAINE 1% SDV 30ML VIAL As Ordered ONE ×2 (11:27→12:45)
[2023-03-06] MEDS ORDERED: ceFAZolin 2 GM/D5W 50 ML IV BAG As Ordered ONE (12:13)
[2023-03-06] MEDS ORDERED: ONDANSETRON 4MG 2ML VIAL As Ordered ONE (12:36)
[2023-03-06] MEDS ORDERED: KETOROLAC 60MG 2ML VIAL As Ordered ONE (12:36)
[2023-03-06] MEDS ORDERED: MIDAZOLAM INJ 2MG/2ML VIAL As Ordered ONE (12:36)
[2023-03-06] MEDS ORDERED: LIDOCAINE 2% 100MG/5ML SDV (FOR ANES.) As Ordered ONE (12:36)
[2023-03-06] MEDS ORDERED: fentaNYL 100 MCG/2 ML INJECTION As Ordered ONE (12:36)
[2023-03-06] MEDS ORDERED: ACETAMINOPHEN 1000MG 100ML IV BAG As Ordered ONE (12:36)
[2023-03-06] MEDS ORDERED: propofoL 200 MG/20 ML VIAL As Ordered ONE (12:36)
[2023-03-06] MEDS ORDERED: PIPERACILLIN/TAZOBACTAM SOD 3.375 GM in D5W MINI-BAG PLUS 50 ML IV SCH ×2 (13:05→16:00)
[2023-03-06] MEDS ORDERED: GLUCAGON INJ 1MG VIAL SC PRN (13:45)
[2023-03-06] MEDS ORDERED: DEXTROSE 50% 50ML SYRINGE IV PRN (13:45)
[2023-03-06] MEDS ORDERED: GLUCOSE 4GM CHEW TABLET PO PRN (13:45)
[2023-03-06] MEDS ORDERED: VANCOMYCIN HCL 1,000 MG, VIAL MATE ADAPTER 1 EACH in D5W 250 ML IV SCH (13:45)
[2023-03-06] MEDS ORDERED: ACETAMINOPHEN TAB 650MG DOSE (2X325MG) PO PRN (14:00)
[2023-03-06 14:30] VITALS: BP 144/95; TEMP 97.9; O2SAT 94
[2023-03-06 14:36] LABS: BASO # 0.1 10^3/uL (0.0-0.2); BASO % 0.3 % (0.0-1.0); EOS % 0.1 % (0.0-3.0); HEMATOCRIT 28.7 % (42.0-52.0); LYMPH # 0.7 10^3/uL (1.5-5.0); LYMPH % 3.5 % (24.0-44.0); MEAN CORPUSCULAR HEMOGLOBIN 27.6 pg (27.0-33.0); MEAN CORPUSCULAR HGB CONC 31.4 g/dl (32.0-36.5); MONO % 8.4 % (2.0-8.0); NEUTROPHILS # 16.2 10^3/uL (1.5-8.5); NEUTROPHILS % 87.2 % (36.0-66.0); PLATELET COUNT, AUTOMATED 255 10^3/uL (150-450); RED BLOOD COUNT 3.26 10^6/uL (4.30-6.10); WHITE BLOOD COUNT 18.6 10^3/uL (4.0-10.0)
[2023-03-06 15:07] LABS: ALBUMIN 2.2 G/DL (3.2-5.2); ALKALINE PHOSPHATASE 84 U/L (46-116); ALT/SGPT < 9 U/L (7.0-40); AST/SGOT 22 U/L (<34); BILIRUBIN,TOTAL 0.5 MG/DL (0.3-1.2); BLOOD UREA NITROGEN 58 MG/DL (9-23); CALCIUM LEVEL 7.7 MG/DL (8.5-10.1); CARBON DIOXIDE LEVEL 20 MMOL/L (20-31); CHLORIDE LEVEL 109 MMOL/L (98-107); GLOMERULAR FILTRATION RATE 14.5 (>56); GLUCOSE, FASTING 161 MG/DL (60-100); POTASSIUM SERUM 4.7 MMOL/L (3.5-5.1); SODIUM LEVEL 140 MMOL/L (136-145); TOTAL PROTEIN 5.8 G/DL (5.7-8.2)
[2023-03-06 15:09] LABS: MONO # 1.6 10^3/uL (0.0-0.8)
[2023-03-06] MEDS ORDERED: VANCOMYCIN INTERMITTENT/PULSE DOSING BY CLINICAL PHARMACIST PER DOSING PROTOCOL XX SCH (15:30)
[2023-03-06] MEDS: **hydrALAZINE** 50 MG TAB PO SCH ×2 (16:35→21:56)
[2023-03-06] MEDS: PIPERACILLIN/TAZOBACTAM SOD 2.25 GM in D5W MINI-BAG PLUS 50 ML IV SCH (16:36)
[2023-03-06] MEDS: NORCO, ANEXSIA 5/325MG TABLET (HYDROcodone/ACETAMINOPHEN) PO PRN ×2 (16:36→21:57)
[2023-03-06] MEDS: INSULIN LISPRO (NovoLOG) PER UNIT SC SCH (16:48)
[2023-03-06] MEDS ORDERED: VANCOMYCIN HCL 1,000 MG, VIAL MATE ADAPTER 1 EACH in D5W 250 ML IV ONE ×2 (17:00→18:00)
[2023-03-06 17:16] LABS: HEMOGLOBIN A1c 10.6 % (4.0-6.0)
[2023-03-06] MEDS ORDERED: INSULIN LISPRO (NovoLOG) PER UNIT SC SCH (21:00)
[2023-03-06] MEDS ORDERED: LEVEMIR (INSULIN DETEMIR) 1 UNITS/0.01ML SC SCH (21:00)
[2023-03-06 21:20] VITALS: BP 158/81; TEMP 96.7; O2SAT 94
[2023-03-06] MEDS: DOCUSATE SODIUM 100MG CAPSULE PO SCH (21:56)
[2023-03-06] MEDS: HEPARIN SOD (PORCINE) 5000UNITS/ML 1ML VIAL/SYRINGE SQ SCH (21:58)
[2023-03-07] MEDS: PIPERACILLIN/TAZOBACTAM SOD 2.25 GM in D5W MINI-BAG PLUS 50 ML IV SCH ×3 (01:00→16:12)
[2023-03-07 02:00] VITALS: BP 140/93; TEMP 96; O2SAT 97
[2023-03-07 07:00] VITALS: BP 186/77; TEMP 98.4; O2SAT 93
[2023-03-07 07:27] LABS: BASO % 0.2 % (0.0-1.0); EOS % 0.2 % (0.0-3.0); HEMATOCRIT 33.1 % (42.0-52.0); HEMOGLOBIN 10.3 g/dl (13.5-17.5); LYMPH # 1.1 10^3/uL (1.5-5.0); LYMPH % 4.5 % (24.0-44.0); MEAN CORPUSCULAR HEMOGLOBIN 27.8 pg (27.0-33.0); MEAN CORPUSCULAR HGB CONC 31.1 g/dl (32.0-36.5); MEAN CORPUSCULAR VOLUME 89.5 fl (80.0-96.0); MONO % 6.9 % (2.0-8.0); NEUTROPHILS # 21.1 10^3/uL (1.5-8.5); NEUTROPHILS % 87.5 % (36.0-66.0); PLATELET COUNT, AUTOMATED 275 10^3/uL (150-450)
[2023-03-07 07:47] LABS: VANCOMYCIN RANDOM 17.9 UG/ML
[2023-03-07 07:48] LABS: CALCIUM LEVEL 8.8 MG/DL (8.5-10.1); CREATININE FOR GFR 4.9 MG/DL (0.70-1.30); GLOMERULAR FILTRATION RATE 13.5 (>56); POTASSIUM SERUM 4.7 MMOL/L (3.5-5.1)
[2023-03-07] MEDS: INSULIN LISPRO (NovoLOG) PER UNIT SC SCH ×3 (08:24→17:20)
[2023-03-07] MEDS: ASPIRIN 81MG ENTERIC TABLET PO SCH (08:25)
[2023-03-07] MEDS: HEPARIN SOD (PORCINE) 5000UNITS/ML 1ML VIAL/SYRINGE SQ SCH ×2 (08:25→22:03)
[2023-03-07] MEDS: ISOSORBIDE MON. (IMDUR) 30MG XR TAB PO SCH (08:25)
[2023-03-07] MEDS: ATORVASTATIN 20 MG TAB PO SCH (08:26)
[2023-03-07] MEDS: CLOPIDOGREL 75 MG TAB PO SCH (08:26)
[2023-03-07] MEDS: DOCUSATE SODIUM 100MG CAPSULE PO SCH ×2 (08:26→22:03)
[2023-03-07] MEDS: PANTOPRAZOLE 40MG TAB (PROTONIX) PO SCH (08:26)
[2023-03-07] MEDS: METOPROLOL SUCC (TopROL XL) 100MG *XL* TAB PO SCH (08:26)
[2023-03-07] MEDS: **hydrALAZINE** 50 MG TAB PO SCH ×3 (08:26→21:00)
[2023-03-07] MEDS ORDERED: INSUH10VL SC (08:28)
[2023-03-07] MEDS ORDERED: FINE10TA PO (08:28)
[2023-03-07] MEDS ORDERED: MINO2.5T PO (08:28)
[2023-03-07] MEDS ORDERED: HOME MED LIST COMPLETE! XX SCH (08:35)
[2023-03-07 08:48] LABS: MONO # 1.7 10^3/uL (0.0-0.8)
[2023-03-07] MEDS: VANCOMYCIN HCL 750 MG, VIAL MATE ADAPTER 1 EACH in D5W 250 ML IV SCH (15:00)
[2023-03-07] MEDS ORDERED: VANCOMYCIN HCL 750 MG, VIAL MATE ADAPTER 1 EACH in D5W 250 ML IV SCH (16:00)
[2023-03-07] MEDS ORDERED: LEVEMIR (INSULIN DETEMIR) 1 UNITS/0.01ML SC SCH (21:00)
[2023-03-07 21:37] VITALS: BP 124/75; TEMP 98.2; O2SAT 91
[2023-03-07] MEDS: NORCO, ANEXSIA 5/325MG TABLET (HYDROcodone/ACETAMINOPHEN) PO PRN (22:03)
[2023-03-08] MEDS: PIPERACILLIN/TAZOBACTAM SOD 2.25 GM in D5W MINI-BAG PLUS 50 ML IV SCH ×4 (00:25→21:14)
[2023-03-08 06:07] LABS: BASO # 0.1 10^3/uL (0.0-0.2); BASO % 0.2 % (0.0-1.0); EOS # 0.4 10^3/uL (0.0-0.5); EOS % 1.9 % (0.0-3.0); HEMATOCRIT 29.9 % (42.0-52.0); HEMOGLOBIN 9.3 g/dl (13.5-17.5); LYMPH # 1.6 10^3/uL (1.5-5.0); LYMPH % 7.5 % (24.0-44.0); MEAN CORPUSCULAR HEMOGLOBIN 27.7 pg (27.0-33.0); MEAN CORPUSCULAR HGB CONC 31.1 g/dl (32.0-36.5); MONO # 1.4 10^3/uL (0.0-0.8); MONO % 6.7 % (2.0-8.0); NEUTROPHILS # 17.5 10^3/uL (1.5-8.5); NEUTROPHILS % 83.2 % (36.0-66.0); PLATELET COUNT, AUTOMATED 283 10^3/uL (150-450); RED BLOOD COUNT 3.36 10^6/uL (4.30-6.10); WHITE BLOOD COUNT 21.1 10^3/uL (4.0-10.0)
[2023-03-08 06:28] LABS: CALCIUM LEVEL 8.5 MG/DL (8.5-10.1); GLOMERULAR FILTRATION RATE 13.1 (>56); POTASSIUM SERUM 4.1 MMOL/L (3.5-5.1)
[2023-03-08 06:36] VITALS: BP 113/64; TEMP 98.1; O2SAT 93
[2023-03-08 06:59] LABS: C REACTIVE PROTEIN QUANTITATIV 27.6 MG/DL (<1.0)
[2023-03-08] MEDS: INSULIN LISPRO (NovoLOG) PER UNIT SC SCH ×6 (07:30→17:54)
[2023-03-08] MEDS: NORCO, ANEXSIA 5/325MG TABLET (HYDROcodone/ACETAMINOPHEN) PO PRN ×2 (07:43→13:59)
[2023-03-08] MEDS ORDERED: NS 1,000 ML IV ONE (08:20)
[2023-03-08] MEDS: ATORVASTATIN 20 MG TAB PO SCH (09:22)
[2023-03-08] MEDS: DOCUSATE SODIUM 100MG CAPSULE PO SCH ×2 (09:23→21:00)
[2023-03-08] MEDS: PANTOPRAZOLE 40MG TAB (PROTONIX) PO SCH (09:23)
[2023-03-08] MEDS: ASPIRIN 81MG ENTERIC TABLET PO SCH (09:23)
[2023-03-08] MEDS: ISOSORBIDE MON. (IMDUR) 30MG XR TAB PO SCH (09:24)
[2023-03-08] MEDS: **hydrALAZINE** 50 MG TAB PO SCH ×3 (09:24→21:00)
[2023-03-08] MEDS: CLOPIDOGREL 75 MG TAB PO SCH (09:25)
[2023-03-08] MEDS: METOPROLOL SUCC (TopROL XL) 100MG *XL* TAB PO SCH (09:25)
[2023-03-08] MEDS: HEPARIN SOD (PORCINE) 5000UNITS/ML 1ML VIAL/SYRINGE SQ SCH ×2 (09:26→21:00)
[2023-03-08 14:00] VITALS: BP 112/98; TEMP 98.1; O2SAT 94
[2023-03-08] MEDS: VANCOMYCIN HCL 750 MG, VIAL MATE ADAPTER 1 EACH in D5W 250 ML IV SCH (16:16)
[2023-03-08 20:34] VITALS: BP 121/74; TEMP 97.8; O2SAT 94
[2023-03-08] MEDS ORDERED: LEVEMIR (INSULIN DETEMIR) 1 UNITS/0.01ML SC SCH (21:00)
[2023-03-09] MEDS: NORCO, ANEXSIA 5/325MG TABLET (HYDROcodone/ACETAMINOPHEN) PO PRN ×3 (01:39→20:33)
[2023-03-09] MEDS: PIPERACILLIN/TAZOBACTAM SOD 2.25 GM in D5W MINI-BAG PLUS 50 ML IV SCH ×4 (01:39→19:40)
[2023-03-09 05:55] VITALS: BP 153/68; TEMP 97.8; O2SAT 93
[2023-03-09 06:47] LABS: CALCIUM LEVEL 7.8 MG/DL (8.5-10.1); CREATININE FOR GFR 4.97 MG/DL (0.70-1.30); GLOMERULAR FILTRATION RATE 13.2 (>56); PERCENT SATURATION 5.7 % (19.7-50.0); POTASSIUM SERUM 4.6 MMOL/L (3.5-5.1)
[2023-03-09 06:50] LABS: FERRITIN 242.7 NG/ML (10.5-307.3)
[2023-03-09 06:53] LABS: BASO # 0.1 10^3/uL (0.0-0.2); BASO % 0.4 % (0.0-1.0); EOS # 0.5 10^3/uL (0.0-0.5); EOS % 2.8 % (0.0-3.0); HEMATOCRIT 26.2 % (42.0-52.0); HEMOGLOBIN 8.2 g/dl (13.5-17.5); LYMPH # 1.5 10^3/uL (1.5-5.0); LYMPH % 8.6 % (24.0-44.0); MEAN CORPUSCULAR HEMOGLOBIN 27.8 pg (27.0-33.0); MEAN CORPUSCULAR HGB CONC 31.3 g/dl (32.0-36.5); MEAN CORPUSCULAR VOLUME 88.8 fl (80.0-96.0); MONO % 9.8 % (2.0-8.0); NEUTROPHILS # 13.2 10^3/uL (1.5-8.5); NEUTROPHILS % 77.9 % (36.0-66.0); PLATELET COUNT, AUTOMATED 265 10^3/uL (150-450); RED BLOOD COUNT 2.95 10^6/uL (4.30-6.10); WHITE BLOOD COUNT 16.9 10^3/uL (4.0-10.0)
[2023-03-09 07:13] LABS: MONO # 1.7 10^3/uL (0.0-0.8)
[2023-03-09] MEDS: INSULIN LISPRO (NovoLOG) PER UNIT SC SCH ×5 (07:25→18:02)
[2023-03-09 07:33] LABS: C REACTIVE PROTEIN QUANTITATIV 22.3 MG/DL (<1.0)
[2023-03-09] MEDS: HEPARIN SOD (PORCINE) 5000UNITS/ML 1ML VIAL/SYRINGE SQ SCH ×2 (09:33→20:34)
[2023-03-09] MEDS: ATORVASTATIN 20 MG TAB PO SCH (09:36)
[2023-03-09] MEDS: CLOPIDOGREL 75 MG TAB PO SCH (09:36)
[2023-03-09] MEDS: ASPIRIN 81MG ENTERIC TABLET PO SCH (09:36)
[2023-03-09] MEDS: DOCUSATE SODIUM 100MG CAPSULE PO SCH ×2 (09:36→20:27)
[2023-03-09] MEDS: ISOSORBIDE MON. (IMDUR) 30MG XR TAB PO SCH (09:37)
[2023-03-09] MEDS: PANTOPRAZOLE 40MG TAB (PROTONIX) PO SCH (09:37)
[2023-03-09] MEDS: METOPROLOL SUCC (TopROL XL) 100MG *XL* TAB PO SCH (09:38)
[2023-03-09] MEDS: **hydrALAZINE** 50 MG TAB PO SCH ×3 (09:38→20:27)
[2023-03-09 10:53] VITALS: BP 134/63
[2023-03-09] MEDS: SODIUM BICARBONATE 325 MG TAB PO SCH ×2 (13:10→20:27)
[2023-03-09 14:00] VITALS: BP_SYST 116; BP_SYST 120; BP_DIAS 64; BP_DIAS 97; TEMP 97; TEMP 98; O2SAT 93
[2023-03-09] MEDS ORDERED: FERRIC CARBOXYMALTOSE INJ 750 MG, VIAL MATE ADAPTER 1 EACH in NS 250 ML IV ONE (14:00)
[2023-03-09] MEDS: LEVEMIR (INSULIN DETEMIR) 1 UNITS/0.01ML SC SCH (20:28)
[2023-03-09 20:36] VITALS: BP 145/75; TEMP 98; O2SAT 94
[2023-03-10] MEDS: PIPERACILLIN/TAZOBACTAM SOD 2.25 GM in D5W MINI-BAG PLUS 50 ML IV SCH ×4 (01:56→20:38)
[2023-03-10 06:28] LABS: BASO # 0.1 10^3/uL (0.0-0.2); BASO % 0.4 % (0.0-1.0); EOS # 0.4 10^3/uL (0.0-0.5); EOS % 2.4 % (0.0-3.0); HEMATOCRIT 26.8 % (42.0-52.0); HEMOGLOBIN 8.5 g/dl (13.5-17.5); LYMPH # 1.4 10^3/uL (1.5-5.0); LYMPH % 7.9 % (24.0-44.0); MEAN CORPUSCULAR HEMOGLOBIN 28.2 pg (27.0-33.0); MEAN CORPUSCULAR HGB CONC 31.7 g/dl (32.0-36.5); MONO % 10.2 % (2.0-8.0); NEUTROPHILS # 14.3 10^3/uL (1.5-8.5); NEUTROPHILS % 78.3 % (36.0-66.0); PLATELET COUNT, AUTOMATED 294 10^3/uL (150-450); RED BLOOD COUNT 3.01 10^6/uL (4.30-6.10); WHITE BLOOD COUNT 18.3 10^3/uL (4.0-10.0)
[2023-03-10 06:34] VITALS: BP 169/88; TEMP 98.6; O2SAT 94
[2023-03-10 06:50] LABS: CALCIUM LEVEL 8.5 MG/DL (8.5-10.1); CREATININE FOR GFR 4.26 MG/DL (0.70-1.30); GLOMERULAR FILTRATION RATE 15.7 (>56); POTASSIUM SERUM 4.5 MMOL/L (3.5-5.1)
[2023-03-10 06:56] LABS: MONO # 1.9 10^3/uL (0.0-0.8)
[2023-03-10] MEDS: INSULIN LISPRO (NovoLOG) PER UNIT SC SCH ×4 (08:09→20:36)
[2023-03-10] MEDS: DOCUSATE SODIUM 100MG CAPSULE PO SCH ×2 (08:10→20:37)
[2023-03-10] MEDS: ATORVASTATIN 20 MG TAB PO SCH (08:10)
[2023-03-10] MEDS: PANTOPRAZOLE 40MG TAB (PROTONIX) PO SCH (08:13)
[2023-03-10] MEDS: ISOSORBIDE MON. (IMDUR) 30MG XR TAB PO SCH (08:13)
[2023-03-10] MEDS: METOPROLOL SUCC (TopROL XL) 100MG *XL* TAB PO SCH (08:13)
[2023-03-10] MEDS: ASPIRIN 81MG ENTERIC TABLET PO SCH (08:13)
[2023-03-10] MEDS: CLOPIDOGREL 75 MG TAB PO SCH (08:13)
[2023-03-10] MEDS: SODIUM BICARBONATE 325 MG TAB PO SCH ×3 (08:13→20:37)
[2023-03-10] MEDS: **hydrALAZINE** 50 MG TAB PO SCH ×3 (08:13→20:38)
[2023-03-10] MEDS: HEPARIN SOD (PORCINE) 5000UNITS/ML 1ML VIAL/SYRINGE SQ SCH ×2 (08:14→20:35)
[2023-03-10] MEDS: DARBEPOETIN 100MCG/0.5ML *NON-DIALYSIS* SYRINGE SC SCH (08:51)
[2023-03-10 14:00] VITALS: BP 155/86; TEMP 98.1; O2SAT 94
[2023-03-10] MEDS: NORCO, ANEXSIA 5/325MG TABLET (HYDROcodone/ACETAMINOPHEN) PO PRN (19:08)
[2023-03-10 20:18] VITALS: BP 135/68; TEMP 99.9; O2SAT 94
[2023-03-10] MEDS: LEVEMIR (INSULIN DETEMIR) 1 UNITS/0.01ML SC SCH (20:36)
[2023-03-11] MEDS: PIPERACILLIN/TAZOBACTAM SOD 2.25 GM in D5W MINI-BAG PLUS 50 ML IV SCH ×4 (01:51→20:49)
[2023-03-11] MEDS: oxyCODONE 5MG TAB PO PRN ×3 (01:53→22:06)
[2023-03-11 06:05] VITALS: BP 208/110; TEMP 98.6; O2SAT 93
[2023-03-11 06:25] LABS: BASO # 0.1 10^3/uL (0.0-0.2); BASO % 0.4 % (0.0-1.0); EOS # 0.3 10^3/uL (0.0-0.5); EOS % 1.5 % (0.0-3.0); HEMATOCRIT 27.8 % (42.0-52.0); HEMOGLOBIN 8.7 g/dl (13.5-17.5); LYMPH # 1.3 10^3/uL (1.5-5.0); LYMPH % 6.5 % (24.0-44.0); MEAN CORPUSCULAR HEMOGLOBIN 28.2 pg (27.0-33.0); MEAN CORPUSCULAR HGB CONC 31.3 g/dl (32.0-36.5); MONO % 10.4 % (2.0-8.0); PLATELET COUNT, AUTOMATED 324 10^3/uL (150-450); RED BLOOD COUNT 3.09 10^6/uL (4.30-6.10); WHITE BLOOD COUNT 19.9 10^3/uL (4.0-10.0)
[2023-03-11] MEDS: **hydrALAZINE** 50 MG TAB PO SCH ×3 (06:31→20:48)
[2023-03-11] MEDS: NORCO, ANEXSIA 5/325MG TABLET (HYDROcodone/ACETAMINOPHEN) PO PRN (06:33)
[2023-03-11 06:46] LABS: CREATININE FOR GFR 3.89 MG/DL (0.70-1.30); GLOMERULAR FILTRATION RATE 17.5 (>56); POTASSIUM SERUM 4.4 MMOL/L (3.5-5.1)
[2023-03-11] MEDS ORDERED: cloNIDine 0.1MG TABLET PO ONE (07:00)
[2023-03-11 07:07] LABS: MONO # 2.1 10^3/uL (0.0-0.8)
[2023-03-11] MEDS: INSULIN LISPRO (NovoLOG) PER UNIT SC SCH ×4 (07:30→20:54)
[2023-03-11] MEDS ORDERED: **hydrALAZINE** 50 MG TAB PO ONE (08:05)
[2023-03-11 08:37] LABS: C REACTIVE PROTEIN QUANTITATIV 24.8 MG/DL (<1.0)
[2023-03-11] MEDS: SODIUM BICARBONATE 325 MG TAB PO SCH ×3 (08:56→20:46)
[2023-03-11] MEDS: CLOPIDOGREL 75 MG TAB PO SCH (08:57)
[2023-03-11] MEDS: ASPIRIN 81MG ENTERIC TABLET PO SCH (08:58)
[2023-03-11] MEDS: ISOSORBIDE MON. (IMDUR) 30MG XR TAB PO SCH (08:58)
[2023-03-11] MEDS: PANTOPRAZOLE 40MG TAB (PROTONIX) PO SCH (08:58)
[2023-03-11] MEDS: ATORVASTATIN 20 MG TAB PO SCH (08:58)
[2023-03-11] MEDS: DOCUSATE SODIUM 100MG CAPSULE PO SCH ×2 (09:00→20:46)
[2023-03-11] MEDS: HEPARIN SOD (PORCINE) 5000UNITS/ML 1ML VIAL/SYRINGE SQ SCH ×2 (09:00→20:45)
[2023-03-11] MEDS: METOPROLOL SUCC (TopROL XL) 100MG *XL* TAB PO SCH (09:00)
[2023-03-11] MEDS ORDERED: TORSEMIDE 20 MG TAB PO ONE (10:35)
[2023-03-11 15:43] VITALS: BP 169/96; TEMP 97.7; O2SAT 96
[2023-03-11 20:27] VITALS: BP 134/73; TEMP 98.8; O2SAT 94
[2023-03-11] MEDS: LEVEMIR (INSULIN DETEMIR) 1 UNITS/0.01ML SC SCH (20:46)
[2023-03-12] MEDS: PIPERACILLIN/TAZOBACTAM SOD 2.25 GM in D5W MINI-BAG PLUS 50 ML IV SCH ×4 (01:15→20:48)
[2023-03-12 05:10] VITALS: BP_SYST 174; BP_SYST 202; BP_DIAS 102; BP_DIAS 110; TEMP 98.8; O2SAT 92
[2023-03-12 06:21] LABS: BASO # 0.1 10^3/uL (0.0-0.2); BASO % 0.4 % (0.0-1.0); CALCIUM LEVEL 8.1 MG/DL (8.5-10.1); CREATININE FOR GFR 3.71 MG/DL (0.70-1.30); EOS # 0.4 10^3/uL (0.0-0.5); EOS % 2.4 % (0.0-3.0); GLOMERULAR FILTRATION RATE 18.5 (>56); HEMATOCRIT 27.5 % (42.0-52.0); HEMOGLOBIN 8.6 g/dl (13.5-17.5); LYMPH # 1.4 10^3/uL (1.5-5.0); LYMPH % 7.8 % (24.0-44.0); MEAN CORPUSCULAR HGB CONC 31.3 g/dl (32.0-36.5); MEAN CORPUSCULAR VOLUME 89.6 fl (80.0-96.0); MONO % 11.7 % (2.0-8.0); NEUTROPHILS # 13.3 10^3/uL (1.5-8.5); NEUTROPHILS % 76.4 % (36.0-66.0); PLATELET COUNT, AUTOMATED 331 10^3/uL (150-450); POTASSIUM SERUM 4.4 MMOL/L (3.5-5.1); RED BLOOD COUNT 3.07 10^6/uL (4.30-6.10); WHITE BLOOD COUNT 17.3 10^3/uL (4.0-10.0)
[2023-03-12 07:09] VITALS: BP 160/88
[2023-03-12] MEDS: SODIUM BICARBONATE 325 MG TAB PO SCH ×3 (08:25→20:48)
[2023-03-12] MEDS: ATORVASTATIN 20 MG TAB PO SCH (08:26)
[2023-03-12] MEDS: HEPARIN SOD (PORCINE) 5000UNITS/ML 1ML VIAL/SYRINGE SQ SCH ×2 (08:27→20:50)
[2023-03-12] MEDS: ASPIRIN 81MG ENTERIC TABLET PO SCH (08:27)
[2023-03-12] MEDS: ISOSORBIDE MON. (IMDUR) 30MG XR TAB PO SCH (08:28)
[2023-03-12] MEDS: CLOPIDOGREL 75 MG TAB PO SCH (08:30)
[2023-03-12] MEDS: INSULIN LISPRO (NovoLOG) PER UNIT SC SCH ×4 (08:30→21:00)
[2023-03-12] MEDS: DOCUSATE SODIUM 100MG CAPSULE PO SCH ×2 (08:30→20:49)
[2023-03-12] MEDS: METOPROLOL SUCC (TopROL XL) 100MG *XL* TAB PO SCH (08:30)
[2023-03-12] MEDS: PANTOPRAZOLE 40MG TAB (PROTONIX) PO SCH (08:31)
[2023-03-12] MEDS: **hydrALAZINE** 50 MG TAB PO SCH ×3 (08:31→20:49)
[2023-03-12] MEDS ORDERED: TORSEMIDE 20 MG TAB PO SCH (09:00)
[2023-03-12] MEDS ORDERED: FUROSEMIDE 100MG/10ML VIAL IV ONE (09:40)
[2023-03-12 10:45] LABS: C REACTIVE PROTEIN QUANTITATIV 22.9 MG/DL (<1.0)
[2023-03-12 11:08] VITALS: BP 152/102
[2023-03-12 14:00] VITALS: BP 174/82; TEMP 97.7; O2SAT 91
[2023-03-12] MEDS: NORCO, ANEXSIA 5/325MG TABLET (HYDROcodone/ACETAMINOPHEN) PO PRN (15:11)
[2023-03-12] MEDS: cloNIDine 0.1MG TABLET PO SCH ×2 (17:15→20:49)
[2023-03-12 19:49] VITALS: BP 157/87; TEMP 98.6; O2SAT 92
[2023-03-12] MEDS: LEVEMIR (INSULIN DETEMIR) 1 UNITS/0.01ML SC SCH (20:50)
[2023-03-13] MEDS: oxyCODONE 5MG TAB PO PRN ×3 (01:22→20:00)
[2023-03-13] MEDS: PIPERACILLIN/TAZOBACTAM SOD 2.25 GM in D5W MINI-BAG PLUS 50 ML IV SCH ×4 (01:23→20:58)
[2023-03-13 05:39] VITALS: BP 170/90; TEMP 98.6; O2SAT 95
[2023-03-13 07:30] LABS: BASO # 0.1 10^3/uL (0.0-0.2); BASO % 0.4 % (0.0-1.0); EOS # 0.5 10^3/uL (0.0-0.5); EOS % 3.1 % (0.0-3.0); HEMATOCRIT 28.2 % (42.0-52.0); HEMOGLOBIN 8.7 g/dl (13.5-17.5); LYMPH # 1.6 10^3/uL (1.5-5.0); LYMPH % 9.7 % (24.0-44.0); MEAN CORPUSCULAR HEMOGLOBIN 27.8 pg (27.0-33.0); MEAN CORPUSCULAR HGB CONC 30.9 g/dl (32.0-36.5); MEAN CORPUSCULAR VOLUME 90.1 fl (80.0-96.0); MONO % 14.2 % (2.0-8.0); NEUTROPHILS # 11.4 10^3/uL (1.5-8.5); NEUTROPHILS % 71.1 % (36.0-66.0); PLATELET COUNT, AUTOMATED 330 10^3/uL (150-450); RED BLOOD COUNT 3.13 10^6/uL (4.30-6.10)
[2023-03-13] MEDS: HEPARIN SOD (PORCINE) 5000UNITS/ML 1ML VIAL/SYRINGE SQ SCH ×2 (08:21→20:56)
[2023-03-13 08:22] LABS: CALCIUM LEVEL 8.5 MG/DL (8.5-10.1); CREATININE FOR GFR 3.83 MG/DL (0.70-1.30); GLOMERULAR FILTRATION RATE 17.8 (>56)
[2023-03-13] MEDS: SODIUM BICARBONATE 325 MG TAB PO SCH ×3 (08:22→20:59)
[2023-03-13] MEDS: PANTOPRAZOLE 40MG TAB (PROTONIX) PO SCH (08:22)
[2023-03-13] MEDS: ASPIRIN 81MG ENTERIC TABLET PO SCH (08:22)
[2023-03-13] MEDS: CLOPIDOGREL 75 MG TAB PO SCH (08:22)
[2023-03-13] MEDS: ATORVASTATIN 20 MG TAB PO SCH (08:24)
[2023-03-13] MEDS: **hydrALAZINE** 50 MG TAB PO SCH ×3 (08:24→21:00)
[2023-03-13] MEDS: ISOSORBIDE MON. (IMDUR) 30MG XR TAB PO SCH (08:24)
[2023-03-13] MEDS: DOCUSATE SODIUM 100MG CAPSULE PO SCH ×2 (08:25→20:59)
[2023-03-13] MEDS: METOPROLOL SUCC (TopROL XL) 100MG *XL* TAB PO SCH (08:25)
[2023-03-13 08:28] LABS: MONO # 2.3 10^3/uL (0.0-0.8)
[2023-03-13] MEDS: INSULIN LISPRO (NovoLOG) PER UNIT SC SCH ×4 (08:31→21:00)
[2023-03-13] MEDS: cloNIDine 0.1MG TABLET PO SCH ×3 (11:23→21:00)
[2023-03-13] MEDS ORDERED: FUROSEMIDE 100MG/10ML VIAL IV ONE (11:35)
[2023-03-13 13:10] VITALS: BP 149/79
[2023-03-13 14:00] VITALS: BP 154/72; TEMP 99; O2SAT 93
[2023-03-13] MEDS: NORCO, ANEXSIA 5/325MG TABLET (HYDROcodone/ACETAMINOPHEN) PO PRN (15:27)
[2023-03-13 20:00] VITALS: BP 163/94; TEMP 98.6; O2SAT 95
[2023-03-13] MEDS: LEVEMIR (INSULIN DETEMIR) 1 UNITS/0.01ML SC SCH (21:00)
[2023-03-14] MEDS: PIPERACILLIN/TAZOBACTAM SOD 2.25 GM in D5W MINI-BAG PLUS 50 ML IV SCH ×4 (01:36→20:14)
[2023-03-14 05:16] VITALS: BP 158/84; TEMP 97.7; O2SAT 94
[2023-03-14] MEDS: **hydrALAZINE** 50 MG TAB PO SCH ×3 (05:40→22:51)
[2023-03-14 06:31] LABS: C REACTIVE PROTEIN QUANTITATIV 22.6 MG/DL (<1.0)
[2023-03-14] MEDS: INSULIN LISPRO (NovoLOG) PER UNIT SC SCH ×4 (07:30→20:06)
[2023-03-14 07:50] LABS: ALBUMIN 1.8 G/DL (3.2-5.2); CALCIUM LEVEL 7.8 MG/DL (8.5-10.1); CREATININE FOR GFR 4.06 MG/DL (0.70-1.30); GLOMERULAR FILTRATION RATE 16.6 (>56); PHOSPHORUS LEVEL 4.3 MG/DL (2.5-4.9); POTASSIUM SERUM 4.1 MMOL/L (3.5-5.1)
[2023-03-14] MEDS: HEPARIN SOD (PORCINE) 5000UNITS/ML 1ML VIAL/SYRINGE SQ SCH ×2 (08:21→20:15)
[2023-03-14] MEDS: ATORVASTATIN 20 MG TAB PO SCH (08:22)
[2023-03-14] MEDS: SODIUM BICARBONATE 325 MG TAB PO SCH ×3 (08:22→20:15)
[2023-03-14] MEDS: ASPIRIN 81MG ENTERIC TABLET PO SCH (08:22)
[2023-03-14] MEDS: PANTOPRAZOLE 40MG TAB (PROTONIX) PO SCH (08:22)
[2023-03-14] MEDS: DOCUSATE SODIUM 100MG CAPSULE PO SCH ×2 (08:22→20:15)
[2023-03-14] MEDS: CLOPIDOGREL 75 MG TAB PO SCH (08:22)
[2023-03-14] MEDS: METOPROLOL SUCC (TopROL XL) 100MG *XL* TAB PO SCH (08:23)
[2023-03-14] MEDS: cloNIDine 0.1MG TABLET PO SCH ×3 (08:24→20:15)
[2023-03-14] MEDS: ISOSORBIDE MON. (IMDUR) 30MG XR TAB PO SCH (08:24)
[2023-03-14] MEDS: NORCO, ANEXSIA 5/325MG TABLET (HYDROcodone/ACETAMINOPHEN) PO PRN (12:59)
[2023-03-14 14:00] VITALS: BP 128/81; TEMP 98.1; O2SAT 97
[2023-03-14 20:01] VITALS: BP 174/76; TEMP 99.3; O2SAT 98
[2023-03-14] MEDS: LEVEMIR (INSULIN DETEMIR) 1 UNITS/0.01ML SC SCH (20:06)
[2023-03-14 22:34] VITALS: BP 166/94
[2023-03-15] MEDS: PIPERACILLIN/TAZOBACTAM SOD 2.25 GM in D5W MINI-BAG PLUS 50 ML IV SCH ×4 (02:16→20:25)
[2023-03-15 06:22] LABS: BASO # 0.1 10^3/uL (0.0-0.2); BASO % 0.5 % (0.0-1.0); EOS # 0.3 10^3/uL (0.0-0.5); EOS % 1.8 % (0.0-3.0); HEMATOCRIT 27.4 % (42.0-52.0); HEMOGLOBIN 8.4 g/dl (13.5-17.5); LYMPH # 1.4 10^3/uL (1.5-5.0); LYMPH % 7.4 % (24.0-44.0); MEAN CORPUSCULAR HEMOGLOBIN 27.9 pg (27.0-33.0); MEAN CORPUSCULAR HGB CONC 30.7 g/dl (32.0-36.5); MONO % 11.2 % (2.0-8.0); NEUTROPHILS # 14.4 10^3/uL (1.5-8.5); NEUTROPHILS % 78.1 % (36.0-66.0); PLATELET COUNT, AUTOMATED 349 10^3/uL (150-450); RED BLOOD COUNT 3.01 10^6/uL (4.30-6.10); WHITE BLOOD COUNT 18.4 10^3/uL (4.0-10.0)
[2023-03-15 06:44] LABS: CALCIUM LEVEL 7.5 MG/DL (8.5-10.1); CREATININE FOR GFR 4.2 MG/DL (0.70-1.30); POTASSIUM SERUM 3.9 MMOL/L (3.5-5.1)
[2023-03-15 06:48] VITALS: BP 167/94; TEMP 98.8
[2023-03-15] MEDS: **hydrALAZINE** 50 MG TAB PO SCH ×3 (06:52→20:26)
[2023-03-15 07:00] LABS: MONO # 2.1 10^3/uL (0.0-0.8)
[2023-03-15] MEDS: INSULIN LISPRO (NovoLOG) PER UNIT SC SCH ×4 (07:30→20:11)
[2023-03-15] MEDS: SODIUM BICARBONATE 325 MG TAB PO SCH ×3 (08:44→20:25)
[2023-03-15] MEDS: HEPARIN SOD (PORCINE) 5000UNITS/ML 1ML VIAL/SYRINGE SQ SCH ×2 (08:44→20:26)
[2023-03-15] MEDS: ASPIRIN 81MG ENTERIC TABLET PO SCH (08:45)
[2023-03-15] MEDS: PANTOPRAZOLE 40MG TAB (PROTONIX) PO SCH (08:45)
[2023-03-15] MEDS: ATORVASTATIN 20 MG TAB PO SCH (08:45)
[2023-03-15] MEDS: CLOPIDOGREL 75 MG TAB PO SCH (08:45)
[2023-03-15] MEDS: METOPROLOL SUCC (TopROL XL) 100MG *XL* TAB PO SCH (08:45)
[2023-03-15] MEDS: ISOSORBIDE MON. (IMDUR) 30MG XR TAB PO SCH (08:45)
[2023-03-15] MEDS: cloNIDine 0.1MG TABLET PO SCH ×3 (08:46→20:11)
[2023-03-15] MEDS: DOCUSATE SODIUM 100MG CAPSULE PO SCH ×2 (08:46→20:25)
[2023-03-15 14:00] VITALS: BP 145/82; TEMP 98.4; O2SAT 95
[2023-03-15] MEDS: oxyCODONE 5MG TAB PO PRN (14:34)
[2023-03-15 20:04] VITALS: BP 144/82; TEMP 98.2; O2SAT 96
[2023-03-15] MEDS: LEVEMIR (INSULIN DETEMIR) 1 UNITS/0.01ML SC SCH (20:11)
[2023-03-16] MEDS: PIPERACILLIN/TAZOBACTAM SOD 2.25 GM in D5W MINI-BAG PLUS 50 ML IV SCH ×4 (03:00→20:15)
[2023-03-16] MEDS ORDERED: BENZONATATE 100MG CAPSULE PO PRN (03:55)
[2023-03-16 06:11] VITALS: BP 137/82; TEMP 98; O2SAT 95
[2023-03-16 06:17] LABS: BASO # 0.1 10^3/uL (0.0-0.2); BASO % 0.4 % (0.0-1.0); EOS # 0.3 10^3/uL (0.0-0.5); EOS % 1.7 % (0.0-3.0); HEMATOCRIT 27.1 % (42.0-52.0); HEMOGLOBIN 8.4 g/dl (13.5-17.5); LYMPH # 1.2 10^3/uL (1.5-5.0); LYMPH % 6.9 % (24.0-44.0); MEAN CORPUSCULAR HEMOGLOBIN 27.8 pg (27.0-33.0); MEAN CORPUSCULAR VOLUME 89.7 fl (80.0-96.0); MONO % 9.4 % (2.0-8.0); NEUTROPHILS # 14.1 10^3/uL (1.5-8.5); NEUTROPHILS % 80.5 % (36.0-66.0); PLATELET COUNT, AUTOMATED 364 10^3/uL (150-450); RED BLOOD COUNT 3.02 10^6/uL (4.30-6.10); WHITE BLOOD COUNT 17.5 10^3/uL (4.0-10.0)
[2023-03-16 06:35] LABS: C REACTIVE PROTEIN QUANTITATIV 21.6 MG/DL (<1.0); CALCIUM LEVEL 7.6 MG/DL (8.5-10.1); CREATININE FOR GFR 4.34 MG/DL (0.70-1.30); GLOMERULAR FILTRATION RATE 15.4 (>56)
[2023-03-16] MEDS: **hydrALAZINE** 50 MG TAB PO SCH ×3 (06:39→20:16)
[2023-03-16 07:00] LABS: MONO # 1.7 10^3/uL (0.0-0.8)
[2023-03-16] MEDS ORDERED: FUROSEMIDE 100MG/10ML VIAL IV ONE ×2 (07:05→15:00)
[2023-03-16] MEDS: ISOSORBIDE MON. (IMDUR) 30MG XR TAB PO SCH (08:29)
[2023-03-16] MEDS: INSULIN LISPRO (NovoLOG) PER UNIT SC SCH ×4 (08:29→20:07)
[2023-03-16] MEDS: CLOPIDOGREL 75 MG TAB PO SCH (08:29)
[2023-03-16] MEDS: ASPIRIN 81MG ENTERIC TABLET PO SCH (08:29)
[2023-03-16] MEDS: PANTOPRAZOLE 40MG TAB (PROTONIX) PO SCH (08:30)
[2023-03-16] MEDS: DOCUSATE SODIUM 100MG CAPSULE PO SCH ×2 (08:30→20:16)
[2023-03-16] MEDS: METOPROLOL SUCC (TopROL XL) 100MG *XL* TAB PO SCH (08:30)
[2023-03-16] MEDS: SODIUM BICARBONATE 325 MG TAB PO SCH ×3 (08:30→20:16)
[2023-03-16] MEDS: ATORVASTATIN 20 MG TAB PO SCH (08:30)
[2023-03-16] MEDS: HEPARIN SOD (PORCINE) 5000UNITS/ML 1ML VIAL/SYRINGE SQ SCH ×2 (08:31→20:16)
[2023-03-16] MEDS: cloNIDine 0.1MG TABLET PO SCH ×3 (08:43→20:07)
[2023-03-16 14:02] VITALS: BP 162/88
[2023-03-16 14:45] VITALS: BP 146/84; TEMP 98.4; O2SAT 96
[2023-03-16 19:48] VITALS: BP 138/81; TEMP 98; O2SAT 96
[2023-03-16] MEDS: LEVEMIR (INSULIN DETEMIR) 1 UNITS/0.01ML SC SCH (20:16)
[2023-03-17] VITALS (9 sets, daily range): BP systolic 104–163; BP diastolic 55–96; TEMP 97.2–98.4; O2SAT 93–98
[2023-03-17] MEDS: PIPERACILLIN/TAZOBACTAM SOD 2.25 GM in D5W MINI-BAG PLUS 50 ML IV SCH ×4 (02:08→20:24)
[2023-03-17] MEDS: **hydrALAZINE** 50 MG TAB PO SCH ×3 (06:24→21:35)
[2023-03-17 06:40] LABS: BASO # 0.1 10^3/uL (0.0-0.2); BASO % 0.4 % (0.0-1.0); EOS # 0.3 10^3/uL (0.0-0.5); EOS % 2.2 % (0.0-3.0); HEMATOCRIT 27.5 % (42.0-52.0); HEMOGLOBIN 8.4 g/dl (13.5-17.5); LYMPH # 1.3 10^3/uL (1.5-5.0); LYMPH % 8.9 % (24.0-44.0); MEAN CORPUSCULAR HEMOGLOBIN 27.4 pg (27.0-33.0); MEAN CORPUSCULAR HGB CONC 30.5 g/dl (32.0-36.5); MEAN CORPUSCULAR VOLUME 89.6 fl (80.0-96.0); MONO % 11.7 % (2.0-8.0); NEUTROPHILS # 11.3 10^3/uL (1.5-8.5); PLATELET COUNT, AUTOMATED 349 10^3/uL (150-450); RED BLOOD COUNT 3.07 10^6/uL (4.30-6.10); WHITE BLOOD COUNT 14.8 10^3/uL (4.0-10.0)
[2023-03-17 06:48] LABS: MONO # 1.7 10^3/uL (0.0-0.8)
[2023-03-17 07:04] LABS: CALCIUM LEVEL 7.3 MG/DL (8.5-10.1); CREATININE FOR GFR 4.74 MG/DL (0.70-1.30); GLOMERULAR FILTRATION RATE 13.9 (>56); POTASSIUM SERUM 3.6 MMOL/L (3.5-5.1)
[2023-03-17] MEDS: INSULIN LISPRO (NovoLOG) PER UNIT SC SCH ×4 (07:30→20:04)
[2023-03-17] MEDS: HEPARIN SOD (PORCINE) 5000UNITS/ML 1ML VIAL/SYRINGE SQ SCH ×2 (07:59→20:25)
[2023-03-17] MEDS: CLOPIDOGREL 75 MG TAB PO SCH (08:00)
[2023-03-17] MEDS: ASPIRIN 81MG ENTERIC TABLET PO SCH (08:00)
[2023-03-17] MEDS: ATORVASTATIN 20 MG TAB PO SCH (08:00)
[2023-03-17] MEDS: SODIUM BICARBONATE 325 MG TAB PO SCH ×4 (08:00→20:25)
[2023-03-17] MEDS: PANTOPRAZOLE 40MG TAB (PROTONIX) PO SCH (08:01)
[2023-03-17] MEDS: cloNIDine 0.1MG TABLET PO SCH ×3 (08:03→20:20)
[2023-03-17] MEDS: ISOSORBIDE MON. (IMDUR) 30MG XR TAB PO SCH (08:04)
[2023-03-17] MEDS: METOPROLOL SUCC (TopROL XL) 100MG *XL* TAB PO SCH (08:04)
[2023-03-17] MEDS: DOCUSATE SODIUM 100MG CAPSULE PO SCH ×2 (08:04→20:59)
[2023-03-17] MEDS ORDERED: LIDOCAINE 1% MDV 20ML VIAL As Ordered ONE (09:57)
[2023-03-17] MEDS ORDERED: LIDOCAINE 2% 100MG/5ML SDV (FOR ANES.) As Ordered ONE (10:01)
[2023-03-17] MEDS ORDERED: propofoL 200 MG/20 ML VIAL As Ordered ONE (10:01)
[2023-03-17] MEDS ORDERED: KETOROLAC 60MG 2ML VIAL As Ordered ONE (10:01)
[2023-03-17] MEDS ORDERED: MIDAZOLAM INJ 2MG/2ML VIAL As Ordered ONE (10:02)
[2023-03-17] MEDS ORDERED: fentaNYL 100 MCG/2 ML INJECTION As Ordered ONE (10:02)
[2023-03-17] MEDS: DARBEPOETIN 100MCG/0.5ML *NON-DIALYSIS* SYRINGE SC SCH (13:38)
[2023-03-17] MEDS: oxyCODONE 5MG TAB PO PRN ×2 (17:49→23:51)
[2023-03-17] MEDS: LEVEMIR (INSULIN DETEMIR) 1 UNITS/0.01ML SC SCH (20:25)
[2023-03-18] MEDS: PIPERACILLIN/TAZOBACTAM SOD 2.25 GM in D5W MINI-BAG PLUS 50 ML IV SCH ×4 (01:58→20:48)
[2023-03-18] MEDS: **hydrALAZINE** 50 MG TAB PO SCH ×3 (05:54→21:55)
[2023-03-18] MEDS: oxyCODONE 5MG TAB PO PRN ×3 (05:55→20:50)
[2023-03-18 06:05] VITALS: BP 156/88; TEMP 97.7; O2SAT 93
[2023-03-18 06:55] LABS: BASO # 0.1 10^3/uL (0.0-0.2); BASO % 0.4 % (0.0-1.0); EOS # 0.5 10^3/uL (0.0-0.5); EOS % 2.9 % (0.0-3.0); HEMATOCRIT 25.6 % (42.0-52.0); LYMPH # 1.4 10^3/uL (1.5-5.0); LYMPH % 8.2 % (24.0-44.0); MEAN CORPUSCULAR HEMOGLOBIN 28.1 pg (27.0-33.0); MEAN CORPUSCULAR HGB CONC 31.3 g/dl (32.0-36.5); MEAN CORPUSCULAR VOLUME 89.8 fl (80.0-96.0); MONO # 1.5 10^3/uL (0.0-0.8); MONO % 8.5 % (2.0-8.0); NEUTROPHILS # 13.5 10^3/uL (1.5-8.5); NEUTROPHILS % 79.5 % (36.0-66.0); PLATELET COUNT, AUTOMATED 344 10^3/uL (150-450); RED BLOOD COUNT 2.85 10^6/uL (4.30-6.10)
[2023-03-18 07:29] LABS: C REACTIVE PROTEIN QUANTITATIV 17.5 MG/DL (<1.0)
[2023-03-18 07:30] LABS: CREATININE FOR GFR 4.61 MG/DL (0.70-1.30); GLOMERULAR FILTRATION RATE 14.4 (>56); POTASSIUM SERUM 3.6 MMOL/L (3.5-5.1)
[2023-03-18] MEDS: INSULIN LISPRO (NovoLOG) PER UNIT SC SCH ×4 (07:30→20:08)
[2023-03-18] MEDS: PANTOPRAZOLE 40MG TAB (PROTONIX) PO SCH (07:56)
[2023-03-18] MEDS: CLOPIDOGREL 75 MG TAB PO SCH (07:58)
[2023-03-18] MEDS: SODIUM BICARBONATE 325 MG TAB PO SCH ×3 (07:58→20:49)
[2023-03-18] MEDS: ATORVASTATIN 20 MG TAB PO SCH (07:58)
[2023-03-18] MEDS: ASPIRIN 81MG ENTERIC TABLET PO SCH (07:58)
[2023-03-18] MEDS: HEPARIN SOD (PORCINE) 5000UNITS/ML 1ML VIAL/SYRINGE SQ SCH ×2 (07:59→20:51)
[2023-03-18] MEDS: METOPROLOL SUCC (TopROL XL) 100MG *XL* TAB PO SCH (08:00)
[2023-03-18] MEDS: ISOSORBIDE MON. (IMDUR) 30MG XR TAB PO SCH (08:00)
[2023-03-18] MEDS: cloNIDine 0.1MG TABLET PO SCH ×3 (08:01→20:49)
[2023-03-18] MEDS: DOCUSATE SODIUM 100MG CAPSULE PO SCH ×2 (08:01→20:49)
[2023-03-18 13:58] VITALS: BP 158/78; TEMP 98.1; O2SAT 96
[2023-03-18] MEDS: NORCO, ANEXSIA 5/325MG TABLET (HYDROcodone/ACETAMINOPHEN) PO PRN (15:14)
[2023-03-18 20:00] VITALS: BP 128/64; TEMP 98.6; O2SAT 94
[2023-03-18] MEDS: LEVEMIR (INSULIN DETEMIR) 1 UNITS/0.01ML SC SCH (20:51)
[2023-03-19] MEDS: PIPERACILLIN/TAZOBACTAM SOD 2.25 GM in D5W MINI-BAG PLUS 50 ML IV SCH ×4 (01:50→19:41)
[2023-03-19 05:30] LABS: BASO # 0.1 10^3/uL (0.0-0.2); BASO % 0.5 % (0.0-1.0); EOS # 0.6 10^3/uL (0.0-0.5); EOS % 3.9 % (0.0-3.0); HEMATOCRIT 25.7 % (42.0-52.0); HEMOGLOBIN 7.8 g/dl (13.5-17.5); LYMPH # 1.2 10^3/uL (1.5-5.0); MEAN CORPUSCULAR HEMOGLOBIN 27.3 pg (27.0-33.0); MEAN CORPUSCULAR HGB CONC 30.4 g/dl (32.0-36.5); MEAN CORPUSCULAR VOLUME 89.9 fl (80.0-96.0); MONO # 1.2 10^3/uL (0.0-0.8); MONO % 8.1 % (2.0-8.0); NEUTROPHILS # 11.8 10^3/uL (1.5-8.5); NEUTROPHILS % 78.8 % (36.0-66.0); PLATELET COUNT, AUTOMATED 358 10^3/uL (150-450); RED BLOOD COUNT 2.86 10^6/uL (4.30-6.10)
[2023-03-19 05:49] VITALS: BP 155/83; TEMP 98.1; O2SAT 93
[2023-03-19 05:56] LABS: CALCIUM LEVEL 7.5 MG/DL (8.5-10.1); CREATININE FOR GFR 4.15 MG/DL (0.70-1.30); GLOMERULAR FILTRATION RATE 16.2 (>56); POTASSIUM SERUM 3.7 MMOL/L (3.5-5.1)
[2023-03-19] MEDS: **hydrALAZINE** 50 MG TAB PO SCH ×3 (06:04→20:47)
[2023-03-19] MEDS: INSULIN LISPRO (NovoLOG) PER UNIT SC SCH ×4 (07:19→20:49)
[2023-03-19] MEDS: ISOSORBIDE MON. (IMDUR) 30MG XR TAB PO SCH (08:10)
[2023-03-19] MEDS: DOCUSATE SODIUM 100MG CAPSULE PO SCH ×2 (08:10→20:55)
[2023-03-19] MEDS: HEPARIN SOD (PORCINE) 5000UNITS/ML 1ML VIAL/SYRINGE SQ SCH ×2 (08:10→20:55)
[2023-03-19] MEDS: PANTOPRAZOLE 40MG TAB (PROTONIX) PO SCH (08:11)
[2023-03-19] MEDS: SODIUM BICARBONATE 325 MG TAB PO SCH ×3 (08:11→20:55)
[2023-03-19] MEDS: METOPROLOL SUCC (TopROL XL) 100MG *XL* TAB PO SCH (08:11)
[2023-03-19] MEDS: ASPIRIN 81MG ENTERIC TABLET PO SCH (08:11)
[2023-03-19] MEDS: cloNIDine 0.1MG TABLET PO SCH ×3 (08:11→20:47)
[2023-03-19] MEDS: ATORVASTATIN 20 MG TAB PO SCH (08:11)
[2023-03-19] MEDS: CLOPIDOGREL 75 MG TAB PO SCH (08:11)
[2023-03-19 14:19] VITALS: BP 178/98; TEMP 97.8; O2SAT 94
[2023-03-19] MEDS: NORCO, ANEXSIA 5/325MG TABLET (HYDROcodone/ACETAMINOPHEN) PO PRN (17:22)
[2023-03-19 19:50] VITALS: BP 119/65; TEMP 97.9; O2SAT 95
[2023-03-19] MEDS: LEVEMIR (INSULIN DETEMIR) 1 UNITS/0.01ML SC SCH (20:50)
[2023-03-20] MEDS: PIPERACILLIN/TAZOBACTAM SOD 2.25 GM in D5W MINI-BAG PLUS 50 ML IV SCH ×4 (02:09→21:28)
[2023-03-20 06:15] VITALS: BP 180/100; TEMP 97.5; O2SAT 96
[2023-03-20 06:15] LABS: BASO # 0.1 10^3/uL (0.0-0.2); BASO % 0.6 % (0.0-1.0); EOS # 0.5 10^3/uL (0.0-0.5); EOS % 3.9 % (0.0-3.0); HEMATOCRIT 24.3 % (42.0-52.0); HEMOGLOBIN 7.6 g/dl (13.5-17.5); LYMPH # 1.6 10^3/uL (1.5-5.0); LYMPH % 11.4 % (24.0-44.0); MEAN CORPUSCULAR HEMOGLOBIN 27.9 pg (27.0-33.0); MEAN CORPUSCULAR HGB CONC 31.3 g/dl (32.0-36.5); MEAN CORPUSCULAR VOLUME 89.3 fl (80.0-96.0); MONO # 1.2 10^3/uL (0.0-0.8); MONO % 8.3 % (2.0-8.0); NEUTROPHILS # 10.5 10^3/uL (1.5-8.5); NEUTROPHILS % 75.2 % (36.0-66.0); PLATELET COUNT, AUTOMATED 383 10^3/uL (150-450); RED BLOOD COUNT 2.72 10^6/uL (4.30-6.10); WHITE BLOOD COUNT 13.9 10^3/uL (4.0-10.0)
[2023-03-20 06:48] LABS: CALCIUM LEVEL 7.8 MG/DL (8.5-10.1); CREATININE FOR GFR 3.85 MG/DL (0.70-1.30); GLOMERULAR FILTRATION RATE 17.7 (>56); POTASSIUM SERUM 3.8 MMOL/L (3.5-5.1)
[2023-03-20 06:49] LABS: C REACTIVE PROTEIN QUANTITATIV 13.1 MG/DL (<1.0)
[2023-03-20] MEDS: NORCO, ANEXSIA 5/325MG TABLET (HYDROcodone/ACETAMINOPHEN) PO PRN (06:54)
[2023-03-20] MEDS: **hydrALAZINE HCL** 25 MG TAB PO SCH ×3 (06:54→21:30)
[2023-03-20] MEDS: INSULIN LISPRO (NovoLOG) PER UNIT SC SCH ×4 (07:30→21:00)
[2023-03-20] MEDS ORDERED: HYDROMORPHONE HCL 0.5 MG/ 0.5 ML SYRINGE IV ONE (07:45)
[2023-03-20] MEDS: CLOPIDOGREL 75 MG TAB PO SCH (08:31)
[2023-03-20] MEDS: ATORVASTATIN 20 MG TAB PO SCH (08:31)
[2023-03-20] MEDS: ASPIRIN 81MG ENTERIC TABLET PO SCH (08:31)
[2023-03-20] MEDS: ISOSORBIDE MON. (IMDUR) 30MG XR TAB PO SCH (08:31)
[2023-03-20] MEDS: PANTOPRAZOLE 40MG TAB (PROTONIX) PO SCH (08:31)
[2023-03-20] MEDS: HEPARIN SOD (PORCINE) 5000UNITS/ML 1ML VIAL/SYRINGE SQ SCH ×2 (08:31→21:30)
[2023-03-20] MEDS: DOCUSATE SODIUM 100MG CAPSULE PO SCH ×2 (08:31→21:00)
[2023-03-20] MEDS: SODIUM BICARBONATE 325 MG TAB PO SCH ×4 (08:31→21:29)
[2023-03-20] MEDS: cloNIDine 0.1MG TABLET PO SCH ×3 (08:32→21:31)
[2023-03-20] MEDS: METOPROLOL SUCC (TopROL XL) 100MG *XL* TAB PO SCH (08:32)
[2023-03-20 10:16] VITALS: BP 117/86
[2023-03-20] MEDS ORDERED: FUROSEMIDE 100MG/10ML VIAL IV ONE (11:10)
[2023-03-20 14:00] VITALS: TEMP 97.9; O2SAT 96
[2023-03-20] MEDS: oxyCODONE 5MG TAB PO PRN (15:31)
[2023-03-20 19:51] VITALS: BP 164/89; TEMP 98.2; O2SAT 95
[2023-03-20] MEDS: LEVEMIR (INSULIN DETEMIR) 1 UNITS/0.01ML SC SCH (21:30)
[2023-03-21] MEDS: PIPERACILLIN/TAZOBACTAM SOD 2.25 GM in D5W MINI-BAG PLUS 50 ML IV SCH ×4 (03:11→20:23)
[2023-03-21 05:47] VITALS: BP 184/102; TEMP 98.1; O2SAT 94
[2023-03-21] MEDS: **hydrALAZINE HCL** 25 MG TAB PO SCH (05:59)
[2023-03-21 07:22] VITALS: BP 184/88
[2023-03-21] MEDS: INSULIN LISPRO (NovoLOG) PER UNIT SC SCH ×4 (07:30→20:09)
[2023-03-21] MEDS: SODIUM BICARBONATE 325 MG TAB PO SCH ×3 (08:25→20:23)
[2023-03-21] MEDS: HEPARIN SOD (PORCINE) 5000UNITS/ML 1ML VIAL/SYRINGE SQ SCH ×2 (08:25→20:24)
[2023-03-21] MEDS: ASPIRIN 81MG ENTERIC TABLET PO SCH (08:25)
[2023-03-21] MEDS: PANTOPRAZOLE 40MG TAB (PROTONIX) PO SCH (08:26)
[2023-03-21] MEDS: CLOPIDOGREL 75 MG TAB PO SCH (08:26)
[2023-03-21] MEDS: METOPROLOL SUCC (TopROL XL) 100MG *XL* TAB PO SCH (08:26)
[2023-03-21] MEDS: ATORVASTATIN 20 MG TAB PO SCH (08:26)
[2023-03-21] MEDS: cloNIDine 0.1MG TABLET PO SCH ×3 (08:26→20:24)
[2023-03-21] MEDS: DOCUSATE SODIUM 100MG CAPSULE PO SCH ×2 (08:27→20:24)
[2023-03-21] MEDS: ISOSORBIDE MON. (IMDUR) 30MG XR TAB PO SCH (08:27)
[2023-03-21] MEDS: oxyCODONE 5MG TAB PO PRN (12:00)
[2023-03-21] MEDS ORDERED: **hydrALAZINE** 50 MG TAB PO SCH (12:00)
[2023-03-21] MEDS: **hydrALAZINE** 50 MG TAB PO SCH ×2 (13:37→21:51)
[2023-03-21 19:48] VITALS: BP 157/85; TEMP 97.9; O2SAT 93
[2023-03-21] MEDS: METOPROLOL SUCC *XL* 25MG TAB (TopROL *XL*) PO SCH (20:23)
[2023-03-21] MEDS: LEVEMIR (INSULIN DETEMIR) 1 UNITS/0.01ML SC SCH (20:24)
[2023-03-21 21:48] VITALS: BP 157/82
[2023-03-22] MEDS: PIPERACILLIN/TAZOBACTAM SOD 2.25 GM in D5W MINI-BAG PLUS 50 ML IV SCH ×4 (02:58→20:19)
[2023-03-22 05:36] VITALS: BP 157/84; TEMP 97.9; O2SAT 95
[2023-03-22] MEDS: **hydrALAZINE** 50 MG TAB PO SCH ×3 (06:00→22:03)
[2023-03-22 06:13] LABS: ALBUMIN 1.6 G/DL (3.2-5.2); CALCIUM LEVEL 8.5 MG/DL (8.5-10.1); CREATININE FOR GFR 3.64 MG/DL (0.70-1.30); GLOMERULAR FILTRATION RATE 18.9 (>56); PHOSPHORUS LEVEL 3.7 MG/DL (2.5-4.9); POTASSIUM SERUM 3.7 MMOL/L (3.5-5.1)
[2023-03-22] MEDS: INSULIN LISPRO (NovoLOG) PER UNIT SC SCH ×4 (07:30→20:21)
[2023-03-22] MEDS: ISOSORBIDE MON. (IMDUR) 30MG XR TAB PO SCH (08:12)
[2023-03-22] MEDS: ATORVASTATIN 20 MG TAB PO SCH (08:12)
[2023-03-22] MEDS: HEPARIN SOD (PORCINE) 5000UNITS/ML 1ML VIAL/SYRINGE SQ SCH ×2 (08:12→20:20)
[2023-03-22] MEDS: METOPROLOL SUCC (TopROL XL) 100MG *XL* TAB PO SCH (08:13)
[2023-03-22] MEDS: SODIUM BICARBONATE 325 MG TAB PO SCH ×3 (08:13→20:20)
[2023-03-22] MEDS: ASPIRIN 81MG ENTERIC TABLET PO SCH (08:14)
[2023-03-22] MEDS: DOCUSATE SODIUM 100MG CAPSULE PO SCH ×2 (08:14→20:20)
[2023-03-22] MEDS: PANTOPRAZOLE 40MG TAB (PROTONIX) PO SCH (08:14)
[2023-03-22] MEDS: CLOPIDOGREL 75 MG TAB PO SCH (08:14)
[2023-03-22] MEDS: cloNIDine 0.1MG TABLET PO SCH ×3 (08:14→20:20)
[2023-03-22] MEDS: oxyCODONE 5MG TAB PO PRN (08:16)
[2023-03-22] MEDS: TORSEMIDE (DEMADEX) 50 MG PER 1/2 TAB PO SCH (13:41)
[2023-03-22 14:00] VITALS: BP 149/81; TEMP 97.2; O2SAT 96
[2023-03-22] MEDS ORDERED: CLONI1TA PO (16:48)
[2023-03-22] MEDS ORDERED: METO1TAB32 PO (16:48)
[2023-03-22] MEDS ORDERED: SODI325T9 PO (16:48)
[2023-03-22] MEDS ORDERED: HYDR-3715 PO (16:48)
[2023-03-22] MEDS ORDERED: TORS100T PO (16:48)
[2023-03-22] MEDS ORDERED: BACI1CAP PO (16:52)
[2023-03-22] MEDS ORDERED: METR-265 PO (16:52)
[2023-03-22] MEDS ORDERED: LEVO1TAB40 PO (16:52)
[2023-03-22 20:08] VITALS: BP 161/96; TEMP 97.2; O2SAT 96
[2023-03-22] MEDS: METOPROLOL SUCC *XL* 25MG TAB (TopROL *XL*) PO SCH (20:20)
[2023-03-22] MEDS: LEVEMIR (INSULIN DETEMIR) 1 UNITS/0.01ML SC SCH (20:25)
[2023-03-22 22:16] VITALS: BP 161/94; TEMP 98.4; O2SAT 94
[2023-03-22 22:32] VITALS: BP 170/88; TEMP 98.1; O2SAT 96
[2023-03-23 00:15] VITALS: BP 183/98; TEMP 97.9; O2SAT 95
[2023-03-23 00:58] VITALS: BP 180/97; TEMP 98.5; O2SAT 95
[2023-03-23] MEDS ORDERED: cloNIDine 0.1MG TABLET PO ONE ×2 (02:00→07:00)
[2023-03-23 02:09] VITALS: BP 174/93; TEMP 97.9; O2SAT 95
[2023-03-23 05:55] VITALS: BP 170/92; TEMP 97.9; O2SAT 96
[2023-03-23] MEDS: **hydrALAZINE** 50 MG TAB PO SCH ×2 (05:58→13:21)
[2023-03-23] MEDS: metroNIDAZOLE (FLAGYL) 500MG TABLET PO SCH ×2 (05:58→13:18)
[2023-03-23] MEDS ORDERED: LevoFLOXacin 250 MG TABLET PO SCH (06:00)
[2023-03-23 06:14] LABS: BASO # 0.1 10^3/uL (0.0-0.2); EOS # 0.6 10^3/uL (0.0-0.5); EOS % 4.4 % (0.0-3.0); HEMATOCRIT 28.7 % (42.0-52.0); LYMPH # 1.5 10^3/uL (1.5-5.0); LYMPH % 12.4 % (24.0-44.0); MEAN CORPUSCULAR HEMOGLOBIN 27.7 pg (27.0-33.0); MEAN CORPUSCULAR HGB CONC 31.4 g/dl (32.0-36.5); MEAN CORPUSCULAR VOLUME 88.3 fl (80.0-96.0); MONO # 1.2 10^3/uL (0.0-0.8); MONO % 9.5 % (2.0-8.0); NEUTROPHILS # 8.9 10^3/uL (1.5-8.5); NEUTROPHILS % 72.2 % (36.0-66.0); PLATELET COUNT, AUTOMATED 387 10^3/uL (150-450); RED BLOOD COUNT 3.25 10^6/uL (4.30-6.10); WHITE BLOOD COUNT 12.4 10^3/uL (4.0-10.0)
[2023-03-23 06:36] LABS: C REACTIVE PROTEIN QUANTITATIV 9.1 MG/DL (<1.0)
[2023-03-23 06:39] LABS: CREATININE FOR GFR 3.74 MG/DL (0.70-1.30); GLOMERULAR FILTRATION RATE 18.3 (>56); POTASSIUM SERUM 3.7 MMOL/L (3.5-5.1)
[2023-03-23 07:06] VITALS: BP 180/90; TEMP 97.8; O2SAT 97
[2023-03-23] MEDS: INSULIN LISPRO (NovoLOG) PER UNIT SC SCH ×2 (07:30→12:00)
[2023-03-23] MEDS: ASPIRIN 81MG ENTERIC TABLET PO SCH (08:54)
[2023-03-23] MEDS: PANTOPRAZOLE 40MG TAB (PROTONIX) PO SCH (08:54)
[2023-03-23] MEDS: SODIUM BICARBONATE 325 MG TAB PO SCH (08:54)
[2023-03-23] MEDS: ATORVASTATIN 20 MG TAB PO SCH (08:54)
[2023-03-23] MEDS: METOPROLOL SUCC (TopROL XL) 100MG *XL* TAB PO SCH (08:57)
[2023-03-23] MEDS: CLOPIDOGREL 75 MG TAB PO SCH (08:57)
[2023-03-23] MEDS: ISOSORBIDE MON. (IMDUR) 30MG XR TAB PO SCH (08:57)
[2023-03-23] MEDS: DOCUSATE SODIUM 100MG CAPSULE PO SCH (08:58)
[2023-03-23] MEDS: oxyCODONE 5MG TAB PO PRN (08:58)
[2023-03-23] MEDS: cloNIDine 0.1MG TABLET PO SCH (08:58)
[2023-03-23] MEDS: TORSEMIDE (DEMADEX) 50 MG PER 1/2 TAB PO SCH (08:59)
[2023-03-23] MEDS: HEPARIN SOD (PORCINE) 5000UNITS/ML 1ML VIAL/SYRINGE SQ SCH (09:00)
[2023-03-23 13:21] VITALS: BP 159/84
== END 2023-03-23 14:30 | disposition home health service (06) | DRG 710 ==
LOC: M SDC 11:11 → M RR INP 13:42 → M MS5PR 14:30
PROVIDERS: ADMIT Internal Medicine Nephrology; ATTEND General Practice
PROC: 0Y6V0Z1 Detachment at Right 4th Toe, High, Open Approach (ICD-10-PCS; 2023-03-06)
PROC: 0JBQ0ZZ Excision of Right Foot Subcutaneous Tissue and Fascia, Open Approach (ICD-10-PCS; 2023-03-06)
PROC: 0LBV0ZZ Excision of Right Foot Tendon, Open Approach (ICD-10-PCS; 2023-03-17)
PROC: 0JBQ0ZZ Excision of Right Foot Subcutaneous Tissue and Fascia, Open Approach (ICD-10-PCS; 2023-03-17)
PROC: 30233N1 Transfusion of Nonautologous Red Blood Cells into Peripheral Vein, Percutaneous Approach (ICD-10-PCS; principal; 2023-03-22)
DX: A41.9 Sepsis, unspecified organism (principal); E87.20 Acidosis, unspecified; N18.4 Chronic kidney disease, stage 4 (severe); N17.9 Acute kidney failure, unspecified; M86.171 Other acute osteomyelitis, right ankle and foot; D62 Acute posthemorrhagic anemia; E11.21 Type 2 diabetes mellitus with diabetic nephropathy; E11.69 Type 2 diabetes mellitus with other specified complication; E11.40 Type 2 diabetes mellitus with diabetic neuropathy, unspecified; E11.51 Type 2 diabetes mellitus with diabetic peripheral angiopathy without gangrene; E11.319 Type 2 diabetes mellitus with unspecified diabetic retinopathy without macular edema; I12.9 Hypertensive chronic kidney disease with stage 1 through stage 4 chronic kidney disease, or unspecified chronic kidney disease; I25.10 Atherosclerotic heart disease of native coronary artery without angina pectoris; Z95.1 Presence of aortocoronary bypass graft; Z95.2 Presence of prosthetic heart valve; D63.1 Anemia in chronic kidney disease; Z79.82 Long term (current) use of aspirin; Z79.4 Long term (current) use of insulin; Z79.899 Other long term (current) drug therapy; N52.9 Male erectile dysfunction, unspecified; N26.1 Atrophy of kidney (terminal); D50.9 Iron deficiency anemia, unspecified; B96.1 Klebsiella pneumoniae [K. pneumoniae] as the cause of diseases classified elsewhere

== ENCOUNTER 2023-04-11 13:48 | Inpatient (IN) | payer BC, MEDICAID ==
[~2023-04-11] VITALS: Ht 182.9 cm; Wt 111.8 kg
[~2023-04-11 13:48] MED LIST changes: +BACI1CAP PO; +CLONI1TA PO; +HYDR-3715 PO; +INSUH10VL SC; +LEVO1TAB40 PO; +METO1TAB32 PO; +METR-265 PO; +MINO2.5T PO; +SODI325T9 PO
[2023-04-11] MEDS ORDERED: LR 1,000 ML IV SCH ×2 (14:20→16:15)
[2023-04-11] MEDS ORDERED: LIDOCAINE 1% SDV 30ML VIAL As Ordered ONE (14:33)
[2023-04-11] MEDS ORDERED: ceFAZolin SOD 2 GM in IV 1 EA IV ONE (14:40)
[2023-04-11] MEDS ORDERED: ONDANSETRON 4MG 2ML VIAL As Ordered ONE (14:51)
[2023-04-11] MEDS ORDERED: LIDOCAINE 2% 100MG/5ML SDV (FOR ANES.) As Ordered ONE (14:51)
[2023-04-11] MEDS ORDERED: propofoL 200 MG/20 ML VIAL As Ordered ONE ×3 (14:51→16:02)
[2023-04-11] MEDS ORDERED: ACETAMINOPHEN 1000MG 100ML IV BAG As Ordered ONE (14:53)
[2023-04-11] MEDS ORDERED: fentaNYL 100 MCG/2 ML INJECTION As Ordered ONE (15:18)
[2023-04-11] MEDS ORDERED: MIDAZOLAM INJ 2MG/2ML VIAL As Ordered ONE (15:34)
[2023-04-11] MEDS ORDERED: oxyCODONE 5MG TAB PO PRN (16:15)
[2023-04-11] MEDS ORDERED: ONDANSETRON 4MG 2ML VIAL IV PRN (16:15)
[2023-04-11] MEDS ORDERED: fentaNYL 100 MCG/2 ML INJECTION IV PRN (16:15)
[2023-04-11] MEDS ORDERED: HYDROMORPHONE HCL 0.5 MG/ 0.5 ML SYRINGE IV PRN (16:15)
[2023-04-11] MEDS ORDERED: GLUCOSE 4GM CHEW TABLET PO PRN (16:50)
[2023-04-11] MEDS ORDERED: GLUCAGON INJ 1MG VIAL SC PRN (16:50)
[2023-04-11] MEDS ORDERED: DEXTROSE 50% 50ML SYRINGE IV PRN (16:50)
[2023-04-11 17:15] VITALS: BP 160/106; TEMP 97.9; O2SAT 96
[2023-04-11 17:45] VITALS: BP 174/115; TEMP 97.5; O2SAT 96
[2023-04-11] MEDS ORDERED: LevoFLOXacin IV 750 MG in IV 1 EA IV SCH (18:00)
[2023-04-11] MEDS: cloNIDine 0.1MG TABLET PO SCH ×2 (18:35→20:16)
[2023-04-11] MEDS ORDERED: HOME MED LIST COMPLETE! XX SCH (18:40)
[2023-04-11 18:42] LABS: BASO # 0.1 10^3/uL (0.0-0.2); BASO % 0.7 % (0.0-1.0); EOS # 0.3 10^3/uL (0.0-0.5); EOS % 2.7 % (0.0-3.0); HEMATOCRIT 27.8 % (42.0-52.0); HEMOGLOBIN 8.5 g/dl (13.5-17.5); LYMPH # 1.6 10^3/uL (1.5-5.0); LYMPH % 15.4 % (24.0-44.0); MEAN CORPUSCULAR HEMOGLOBIN 27.5 pg (27.0-33.0); MEAN CORPUSCULAR HGB CONC 30.6 g/dl (32.0-36.5); MONO # 1.2 10^3/uL (0.0-0.8); NEUTROPHILS # 7.5 10^3/uL (1.5-8.5); NEUTROPHILS % 69.8 % (36.0-66.0); PLATELET COUNT, AUTOMATED 386 10^3/uL (150-450); RED BLOOD COUNT 3.09 10^6/uL (4.30-6.10); WHITE BLOOD COUNT 10.7 10^3/uL (4.0-10.0)
[2023-04-11 18:45] VITALS: BP 184/132; TEMP 97.7; O2SAT 96
[2023-04-11 19:09] LABS: CALCIUM LEVEL 7.9 MG/DL (8.5-10.1); CREATININE FOR GFR 3.61 MG/DL (0.70-1.30); GLOMERULAR FILTRATION RATE 19.1 (>56); MAGNESIUM LEVEL 1.6 MG/DL (1.8-2.4); PHOSPHORUS LEVEL 5.3 MG/DL (2.5-4.9); POTASSIUM SERUM 4.8 MMOL/L (3.5-5.1)
[2023-04-11] MEDS ORDERED: NITROGLYCERIN 0.4MG SUBL TABLET SL PRN (19:10)
[2023-04-11 19:56] VITALS: BP_SYST 13; BP_SYST 130; BP_DIAS 89; TEMP 97.9; O2SAT 95
[2023-04-11] MEDS: metroNIDAZOLE 500 MG in IV 1 EA IV SCH (20:15)
[2023-04-11] MEDS: SODIUM BICARBONATE 325 MG TAB PO SCH (20:16)
[2023-04-11] MEDS: LACTOBACILLUS ACIDOPHILUS CAP (BACID) PO SCH (20:16)
[2023-04-11] MEDS: NORCO, ANEXSIA 5/325MG TABLET (HYDROcodone/ACETAMINOPHEN) PO PRN (20:17)
[2023-04-11] MEDS: LEVEMIR (INSULIN DETEMIR) 1 UNITS/0.01ML SC SCH (20:17)
[2023-04-11] MEDS: INSULIN LISPRO (NovoLOG) PER UNIT SC SCH (20:18)
[2023-04-11] MEDS ORDERED: **hydrALAZINE** 50 MG TAB PO SCH (21:00)
[2023-04-11] MEDS: MORPHINE 4 MG/ML 1ML VIAL IV PRN (21:58)
[2023-04-11] MEDS ORDERED: ceFAZolin SOD 2 GM in IV 1 EA IV SCH (23:00)
[2023-04-12] VITALS (8 sets, daily range): BP systolic 101–158; BP diastolic 70–95; TEMP 97.9–98.4; O2SAT 87–95
[2023-04-12] MEDS: NORCO, ANEXSIA 5/325MG TABLET (HYDROcodone/ACETAMINOPHEN) PO PRN ×3 (02:55→18:42)
[2023-04-12] MEDS: metroNIDAZOLE 500 MG in IV 1 EA IV SCH (03:40)
[2023-04-12] MEDS: MORPHINE 4 MG/ML 1ML VIAL IV PRN ×4 (03:41→17:17)
[2023-04-12] MEDS ORDERED: GABAPENTIN 100 MG CAP PO ONE (03:50)
[2023-04-12] MEDS ORDERED: diazePAM 10MG/2ML SYRINGE IV ONE (03:50)
[2023-04-12 05:51] LABS: BASO # 0.1 10^3/uL (0.0-0.2); BASO % 0.4 % (0.0-1.0); EOS # 0.3 10^3/uL (0.0-0.5); EOS % 2.9 % (0.0-3.0); HEMOGLOBIN 8.7 g/dl (13.5-17.5); LYMPH # 1.3 10^3/uL (1.5-5.0); LYMPH % 11.8 % (24.0-44.0); MEAN CORPUSCULAR VOLUME 90.1 fl (80.0-96.0); MONO # 1.4 10^3/uL (0.0-0.8); MONO % 12.1 % (2.0-8.0); NEUTROPHILS # 8.1 10^3/uL (1.5-8.5); NEUTROPHILS % 72.4 % (36.0-66.0); PLATELET COUNT, AUTOMATED 350 10^3/uL (150-450); RED BLOOD COUNT 3.22 10^6/uL (4.30-6.10); WHITE BLOOD COUNT 11.2 10^3/uL (4.0-10.0)
[2023-04-12 06:08] LABS: CALCIUM LEVEL 7.8 MG/DL (8.5-10.1); CREATININE FOR GFR 3.74 MG/DL (0.70-1.30); GLOMERULAR FILTRATION RATE 18.3 (>56); MAGNESIUM LEVEL 1.7 MG/DL (1.8-2.4); PHOSPHORUS LEVEL 5.2 MG/DL (2.5-4.9); POTASSIUM SERUM 4.6 MMOL/L (3.5-5.1)
[2023-04-12] MEDS ORDERED: MAGNESIUM OXIDE 400MG TAB (MAG-OX) PO ONE (06:45)
[2023-04-12] MEDS: INSULIN LISPRO (NovoLOG) PER UNIT SC SCH ×4 (07:30→21:00)
[2023-04-12] MEDS: TORSEMIDE (DEMADEX) 50 MG PER 1/2 TAB PO SCH (08:20)
[2023-04-12] MEDS: LACTOBACILLUS ACIDOPHILUS CAP (BACID) PO SCH ×4 (08:20→23:03)
[2023-04-12] MEDS: PANTOPRAZOLE 40MG TAB (PROTONIX) PO SCH (08:21)
[2023-04-12] MEDS: **hydrALAZINE** 50 MG TAB PO SCH ×3 (08:21→23:03)
[2023-04-12] MEDS: ATORVASTATIN 20 MG TAB PO SCH (08:22)
[2023-04-12] MEDS: ASPIRIN 81MG ENTERIC TABLET PO SCH (08:22)
[2023-04-12] MEDS: SODIUM BICARBONATE 325 MG TAB PO SCH ×3 (08:22→23:04)
[2023-04-12] MEDS: cloNIDine 0.1MG TABLET PO SCH ×3 (08:22→23:04)
[2023-04-12] MEDS: ISOSORBIDE MON. (IMDUR) 30MG XR TAB PO SCH (08:23)
[2023-04-12] MEDS: CLOPIDOGREL 75 MG TAB PO SCH (08:23)
[2023-04-12] MEDS: METOPROLOL SUCC (TopROL XL) 100MG *XL* TAB PO SCH (08:23)
[2023-04-12] MEDS: LEVEMIR (INSULIN DETEMIR) 1 UNITS/0.01ML SC SCH ×2 (08:25→23:43)
[2023-04-12] MEDS ORDERED: TORSEMIDE (DEMADEX) 50 MG PER 1/2 TAB PO SCH (09:00)
[2023-04-12] MEDS ORDERED: METOPROLOL SUCC (TopROL XL) 100MG *XL* TAB PO SCH (09:00)
[2023-04-12] MEDS: oxyCODONE 5MG TAB PO SCH ×3 (09:24→23:50)
[2023-04-12] MEDS ORDERED: metroNIDAZOLE (FLAGYL) 500MG TABLET PO SCH (12:00)
[2023-04-12] MEDS: HEPARIN SOD (PORCINE) 5000UNITS/ML 1ML VIAL/SYRINGE SQ SCH ×2 (15:15→23:05)
[2023-04-12] MEDS ORDERED: VANCOMYCIN HCL 1,000 MG, VIAL MATE ADAPTER 1 EACH in D5W 250 ML IV ONE (23:00)
[2023-04-13] MEDS ORDERED: VANCOMYCIN HCL 1,000 MG, VIAL MATE ADAPTER 1 EACH in D5W 250 ML IV ONE ×3
[2023-04-13 05:36] VITALS: BP 105/72; TEMP 98.1; O2SAT 94
[2023-04-13] MEDS: HEPARIN SOD (PORCINE) 5000UNITS/ML 1ML VIAL/SYRINGE SQ SCH ×3 (05:52→21:50)
[2023-04-13] MEDS: NORCO, ANEXSIA 5/325MG TABLET (HYDROcodone/ACETAMINOPHEN) PO PRN ×4 (05:54→21:52)
[2023-04-13 06:34] LABS: HEMOGLOBIN 8.7 g/dl (13.5-17.5); MEAN CORPUSCULAR VOLUME 90.1 fl (80.0-96.0); PLATELET COUNT, AUTOMATED 376 10^3/uL (150-450); RED BLOOD COUNT 3.22 10^6/uL (4.30-6.10); WHITE BLOOD COUNT 10.8 10^3/uL (4.0-10.0)
[2023-04-13 07:00] LABS: CALCIUM LEVEL 7.8 MG/DL (8.5-10.1); CREATININE FOR GFR 5.06 MG/DL (0.70-1.30); GLOMERULAR FILTRATION RATE 12.9 (>56); PHOSPHORUS LEVEL 5.4 MG/DL (2.5-4.9); POTASSIUM SERUM 5.2 MMOL/L (3.5-5.1)
[2023-04-13] MEDS: INSULIN LISPRO (NovoLOG) PER UNIT SC SCH ×4 (07:03→20:28)
[2023-04-13] MEDS: LACTOBACILLUS ACIDOPHILUS CAP (BACID) PO SCH ×4 (08:00→20:28)
[2023-04-13] MEDS: SODIUM BICARBONATE 325 MG TAB PO SCH ×3 (08:00→20:28)
[2023-04-13] MEDS: oxyCODONE 5MG TAB PO SCH ×3 (08:00→20:28)
[2023-04-13] MEDS: ATORVASTATIN 20 MG TAB PO SCH (08:00)
[2023-04-13] MEDS: ASPIRIN 81MG ENTERIC TABLET PO SCH (08:01)
[2023-04-13] MEDS: METOPROLOL SUCC (TopROL XL) 100MG *XL* TAB PO SCH (08:02)
[2023-04-13] MEDS: **hydrALAZINE** 50 MG TAB PO SCH ×3 (08:03→20:28)
[2023-04-13] MEDS: LEVEMIR (INSULIN DETEMIR) 1 UNITS/0.01ML SC SCH (08:03)
[2023-04-13] MEDS: TORSEMIDE (DEMADEX) 50 MG PER 1/2 TAB PO SCH (08:03)
[2023-04-13] MEDS: cloNIDine 0.1MG TABLET PO SCH (08:03)
[2023-04-13] MEDS: ISOSORBIDE MON. (IMDUR) 30MG XR TAB PO SCH (08:04)
[2023-04-13] MEDS: CLOPIDOGREL 75 MG TAB PO SCH (08:04)
[2023-04-13] MEDS: PANTOPRAZOLE 40MG TAB (PROTONIX) PO SCH (08:04)
[2023-04-13 09:29] LABS: MAGNESIUM LEVEL 1.8 MG/DL (1.8-2.4)
[2023-04-13] MEDS: MORPHINE 4 MG/ML 1ML VIAL IV PRN (12:50)
[2023-04-13] MEDS: PATIROMER SORBITEX CALCIUM 8.4 GM POWDER PACKET (VELTASSA) PO SCH (12:50)
[2023-04-13] MEDS ORDERED: NS 1,000 ML IV SCH (13:00)
[2023-04-13 14:00] VITALS: BP 105/68; TEMP 97.9; O2SAT 96
[2023-04-13] MEDS ORDERED: VANCOMYCIN HCL 1,000 MG, VIAL MATE ADAPTER 1 EACH in D5W 250 ML IV SCH (14:00)
[2023-04-13] MEDS ORDERED: cloNIDine 0.1MG TABLET PO SCH (16:00)
[2023-04-13] MEDS ORDERED: LevoFLOXacin 750 MG TABLET PO SCH (18:00)
[2023-04-13 20:32] VITALS: BP 139/92; TEMP 97.5; O2SAT 97
[2023-04-14] MEDS ORDERED: TAMSULOSIN 0.4 MG CAP PO ONE (00:25)
[2023-04-14] MEDS: HEPARIN SOD (PORCINE) 5000UNITS/ML 1ML VIAL/SYRINGE SQ SCH ×3 (05:48→20:30)
[2023-04-14 06:10] VITALS: BP 136/91; TEMP 99; O2SAT 96
[2023-04-14 06:17] LABS: BASO # 0.1 10^3/uL (0.0-0.2); BASO % 0.5 % (0.0-1.0); EOS # 0.1 10^3/uL (0.0-0.5); HEMATOCRIT 27.7 % (42.0-52.0); HEMOGLOBIN 8.5 g/dl (13.5-17.5); LYMPH # 1.3 10^3/uL (1.5-5.0); LYMPH % 10.3 % (24.0-44.0); MEAN CORPUSCULAR HEMOGLOBIN 27.2 pg (27.0-33.0); MEAN CORPUSCULAR HGB CONC 30.7 g/dl (32.0-36.5); MEAN CORPUSCULAR VOLUME 88.5 fl (80.0-96.0); MONO # 1.3 10^3/uL (0.0-0.8); MONO % 10.7 % (2.0-8.0); NEUTROPHILS # 9.6 10^3/uL (1.5-8.5); NEUTROPHILS % 77.1 % (36.0-66.0); PLATELET COUNT, AUTOMATED 378 10^3/uL (150-450); RED BLOOD COUNT 3.13 10^6/uL (4.30-6.10); WHITE BLOOD COUNT 12.4 10^3/uL (4.0-10.0)
[2023-04-14 06:33] LABS: VANCOMYCIN RANDOM 17.2 UG/ML
[2023-04-14 06:35] LABS: CALCIUM LEVEL 7.9 MG/DL (8.5-10.1); CREATININE FOR GFR 5.52 MG/DL (0.70-1.30); GLOMERULAR FILTRATION RATE 11.7 (>56); MAGNESIUM LEVEL 1.9 MG/DL (1.8-2.4); PHOSPHORUS LEVEL 5.2 MG/DL (2.5-4.9)
[2023-04-14] MEDS: ASPIRIN 81MG ENTERIC TABLET PO SCH (08:32)
[2023-04-14] MEDS: LACTOBACILLUS ACIDOPHILUS CAP (BACID) PO SCH ×4 (08:32→20:28)
[2023-04-14] MEDS: INSULIN LISPRO (NovoLOG) PER UNIT SC SCH ×4 (08:32→20:34)
[2023-04-14] MEDS: **hydrALAZINE** 50 MG TAB PO SCH ×3 (08:32→20:34)
[2023-04-14] MEDS: oxyCODONE 5MG TAB PO SCH ×3 (08:33→20:28)
[2023-04-14] MEDS: PANTOPRAZOLE 40MG TAB (PROTONIX) PO SCH (08:33)
[2023-04-14] MEDS: METOPROLOL SUCC (TopROL XL) 100MG *XL* TAB PO SCH (08:33)
[2023-04-14] MEDS: ISOSORBIDE MON. (IMDUR) 30MG XR TAB PO SCH (08:34)
[2023-04-14] MEDS: CLOPIDOGREL 75 MG TAB PO SCH (08:34)
[2023-04-14] MEDS: ATORVASTATIN 20 MG TAB PO SCH (08:34)
[2023-04-14] MEDS: SODIUM BICARBONATE 325 MG TAB PO SCH ×3 (08:35→20:28)
[2023-04-14] MEDS: TAMSULOSIN 0.4 MG CAP PO SCH (10:51)
[2023-04-14] MEDS ORDERED: VANCOMYCIN HCL 500 MG in D5W MINI-BAG PLUS 100 ML IV SCH (12:00)
[2023-04-14] MEDS: PATIROMER SORBITEX CALCIUM 8.4 GM POWDER PACKET (VELTASSA) PO SCH (12:21)
[2023-04-14 14:00] VITALS: BP 136/62; TEMP 97.7; O2SAT 93
[2023-04-14] MEDS: NORCO, ANEXSIA 5/325MG TABLET (HYDROcodone/ACETAMINOPHEN) PO PRN (18:32)
[2023-04-14 19:50] VITALS: BP 111/79; TEMP 98.4; O2SAT 93
[2023-04-15] MEDS: NORCO, ANEXSIA 5/325MG TABLET (HYDROcodone/ACETAMINOPHEN) PO PRN ×4 (05:36→20:19)
[2023-04-15] MEDS: HEPARIN SOD (PORCINE) 5000UNITS/ML 1ML VIAL/SYRINGE SQ SCH ×3 (05:36→20:20)
[2023-04-15 05:50] VITALS: BP 165/99; TEMP 97.9; O2SAT 94
[2023-04-15 07:09] LABS: ALBUMIN 1.7 G/DL (3.2-5.2); ALKALINE PHOSPHATASE 80 U/L (46-116); ALT/SGPT < 9 U/L (7.0-40); AST/SGOT 21 U/L (<34); BILIRUBIN,TOTAL 0.2 MG/DL (0.3-1.2); BLOOD UREA NITROGEN 54 MG/DL (9-23); CALCIUM LEVEL 8.2 MG/DL (8.5-10.1); CARBON DIOXIDE LEVEL 21 MMOL/L (20-31); CHLORIDE LEVEL 110 MMOL/L (98-107); CREATININE FOR GFR 5.51 MG/DL (0.70-1.30); GLOMERULAR FILTRATION RATE 11.7 (>56); GLUCOSE, FASTING 112 MG/DL (60-100); PHOSPHORUS LEVEL 5.6 MG/DL (2.5-4.9); POTASSIUM SERUM 4.6 MMOL/L (3.5-5.1); SODIUM LEVEL 141 MMOL/L (136-145); TOTAL PROTEIN 5.7 G/DL (5.7-8.2)
[2023-04-15] MEDS: INSULIN LISPRO (NovoLOG) PER UNIT SC SCH ×4 (07:30→20:20)
[2023-04-15] MEDS: SODIUM BICARBONATE 325 MG TAB PO SCH ×3 (09:43→20:19)
[2023-04-15] MEDS: TAMSULOSIN 0.4 MG CAP PO SCH (09:43)
[2023-04-15] MEDS: ASPIRIN 81MG ENTERIC TABLET PO SCH (09:43)
[2023-04-15] MEDS: LACTOBACILLUS ACIDOPHILUS CAP (BACID) PO SCH ×4 (09:43→20:19)
[2023-04-15] MEDS: ISOSORBIDE MON. (IMDUR) 30MG XR TAB PO SCH (09:44)
[2023-04-15] MEDS: **hydrALAZINE** 50 MG TAB PO SCH ×3 (09:44→20:20)
[2023-04-15] MEDS: PANTOPRAZOLE 40MG TAB (PROTONIX) PO SCH (09:45)
[2023-04-15] MEDS: CLOPIDOGREL 75 MG TAB PO SCH (09:45)
[2023-04-15] MEDS: METOPROLOL SUCC (TopROL XL) 100MG *XL* TAB PO SCH (09:45)
[2023-04-15] MEDS: ATORVASTATIN 20 MG TAB PO SCH (09:45)
[2023-04-15] MEDS: PATIROMER SORBITEX CALCIUM 8.4 GM POWDER PACKET (VELTASSA) PO SCH (12:00)
[2023-04-15 14:00] VITALS: BP 120/64; TEMP 98.1; O2SAT 95
[2023-04-15 20:45] VITALS: BP 146/87; TEMP 97.9; O2SAT 92
[2023-04-16] MEDS: HEPARIN SOD (PORCINE) 5000UNITS/ML 1ML VIAL/SYRINGE SQ SCH ×3 (05:43→21:57)
[2023-04-16 05:48] VITALS: BP 169/99; TEMP 97.5; O2SAT 91
[2023-04-16 06:01] LABS: HEMATOCRIT 27.6 % (42.0-52.0); HEMOGLOBIN 8.6 g/dl (13.5-17.5); MEAN CORPUSCULAR HEMOGLOBIN 27.3 pg (27.0-33.0); MEAN CORPUSCULAR HGB CONC 31.2 g/dl (32.0-36.5); MEAN CORPUSCULAR VOLUME 87.6 fl (80.0-96.0); PLATELET COUNT, AUTOMATED 401 10^3/uL (150-450); RED BLOOD COUNT 3.15 10^6/uL (4.30-6.10); WHITE BLOOD COUNT 10.4 10^3/uL (4.0-10.0)
[2023-04-16 06:26] LABS: CALCIUM LEVEL 8.3 MG/DL (8.5-10.1); CREATININE FOR GFR 4.75 MG/DL (0.70-1.30); GLOMERULAR FILTRATION RATE 13.9 (>56); MAGNESIUM LEVEL 2.2 MG/DL (1.8-2.4); POTASSIUM SERUM 4.8 MMOL/L (3.5-5.1)
[2023-04-16] MEDS: INSULIN LISPRO (NovoLOG) PER UNIT SC SCH ×4 (07:30→21:00)
[2023-04-16] MEDS: PANTOPRAZOLE 40MG TAB (PROTONIX) PO SCH (08:13)
[2023-04-16] MEDS: LACTOBACILLUS ACIDOPHILUS CAP (BACID) PO SCH ×4 (08:13→21:58)
[2023-04-16] MEDS: ISOSORBIDE MON. (IMDUR) 30MG XR TAB PO SCH (08:14)
[2023-04-16] MEDS: ASPIRIN 81MG ENTERIC TABLET PO SCH (08:14)
[2023-04-16] MEDS: SODIUM BICARBONATE 325 MG TAB PO SCH ×3 (08:14→21:58)
[2023-04-16] MEDS: CLOPIDOGREL 75 MG TAB PO SCH (08:14)
[2023-04-16] MEDS: ATORVASTATIN 20 MG TAB PO SCH (08:15)
[2023-04-16] MEDS: METOPROLOL SUCC (TopROL XL) 100MG *XL* TAB PO SCH (08:16)
[2023-04-16] MEDS: **hydrALAZINE** 50 MG TAB PO SCH ×3 (08:16→21:58)
[2023-04-16] MEDS: TAMSULOSIN 0.4 MG CAP PO SCH (08:18)
[2023-04-16] MEDS: PATIROMER SORBITEX CALCIUM 8.4 GM POWDER PACKET (VELTASSA) PO SCH (11:46)
[2023-04-16] MEDS: NORCO, ANEXSIA 5/325MG TABLET (HYDROcodone/ACETAMINOPHEN) PO PRN ×2 (11:46→15:55)
[2023-04-16 14:00] VITALS: BP 117/67; TEMP 97.9; O2SAT 93
[2023-04-16 14:05] LABS: HEMOGLOBIN A1c 7.1 % (4.0-6.0)
[2023-04-16] MEDS ORDERED: PILL CUTTER 1 EACH XX PRN (15:05)
[2023-04-16 19:58] VITALS: BP 134/84; TEMP 97.5; O2SAT 94
[2023-04-16] MEDS: AUGMENTIN 500MG TAB PO SCH (21:58)
[2023-04-17 05:41] VITALS: BP 160/99; TEMP 98.1; O2SAT 94
[2023-04-17] MEDS: NORCO, ANEXSIA 5/325MG TABLET (HYDROcodone/ACETAMINOPHEN) PO PRN (06:25)
[2023-04-17] MEDS: HEPARIN SOD (PORCINE) 5000UNITS/ML 1ML VIAL/SYRINGE SQ SCH ×2 (06:26→12:50)
[2023-04-17 07:28] LABS: ALBUMIN 1.8 G/DL (3.2-5.2); ALKALINE PHOSPHATASE 83 U/L (46-116); ALT/SGPT < 9 U/L (7.0-40); AST/SGOT 15 U/L (<34); BILIRUBIN,TOTAL 0.2 MG/DL (0.3-1.2); BLOOD UREA NITROGEN 46 MG/DL (9-23); CALCIUM LEVEL 8.4 MG/DL (8.5-10.1); CARBON DIOXIDE LEVEL 22 MMOL/L (20-31); CHLORIDE LEVEL 111 MMOL/L (98-107); CREATININE FOR GFR 4.25 MG/DL (0.70-1.30); GLOMERULAR FILTRATION RATE 15.8 (>56); GLUCOSE, FASTING 118 MG/DL (60-100); MAGNESIUM LEVEL 2.3 MG/DL (1.8-2.4); POTASSIUM SERUM 4.8 MMOL/L (3.5-5.1); SODIUM LEVEL 143 MMOL/L (136-145); TOTAL PROTEIN 6.2 G/DL (5.7-8.2)
[2023-04-17] MEDS ORDERED: AMOX500T2 PO (07:45)
[2023-04-17] MEDS ORDERED: HYDR50TA PO (07:48)
[2023-04-17] MEDS ORDERED: FLOM0.4C39 PO (07:50)
[2023-04-17] MEDS ORDERED: VELT1POW PO (07:50)
[2023-04-17] MEDS: SODIUM BICARBONATE 325 MG TAB PO SCH (08:25)
[2023-04-17] MEDS: TAMSULOSIN 0.4 MG CAP PO SCH (08:25)
[2023-04-17 08:26] VITALS: BP 160/99
[2023-04-17] MEDS: PANTOPRAZOLE 40MG TAB (PROTONIX) PO SCH (08:26)
[2023-04-17] MEDS: LACTOBACILLUS ACIDOPHILUS CAP (BACID) PO SCH ×2 (08:26→12:49)
[2023-04-17] MEDS: ISOSORBIDE MON. (IMDUR) 30MG XR TAB PO SCH (08:26)
[2023-04-17] MEDS: AUGMENTIN 500MG TAB PO SCH (08:26)
[2023-04-17] MEDS: CLOPIDOGREL 75 MG TAB PO SCH (08:26)
[2023-04-17] MEDS: ATORVASTATIN 20 MG TAB PO SCH (08:26)
[2023-04-17] MEDS: ASPIRIN 81MG ENTERIC TABLET PO SCH (08:27)
[2023-04-17] MEDS: METOPROLOL SUCC (TopROL XL) 100MG *XL* TAB PO SCH (08:27)
[2023-04-17] MEDS: **hydrALAZINE** 50 MG TAB PO SCH (08:27)
[2023-04-17] MEDS: INSULIN LISPRO (NovoLOG) PER UNIT SC SCH ×2 (08:28→12:49)
[2023-04-17] MEDS ORDERED: DARBEPOETIN 100MCG/0.5ML *NON-DIALYSIS* SYRINGE SC SCH (09:00)
[2023-04-17] MEDS: PATIROMER SORBITEX CALCIUM 8.4 GM POWDER PACKET (VELTASSA) PO SCH (12:00)
[2023-04-17] MEDS ORDERED: HYDR-3715 PO (15:33)
[2023-04-17 16:06] VITALS: BP 138/82
== END 2023-04-17 16:08 | disposition home or self-care (01) | DRG 305 ==
LOC: M SDC 13:48 → M RR INP 16:30 → M MS5PR 17:00
PROVIDERS: ADMIT Podiatrist Foot & Ankle Surgery; ATTEND General Practice
PROC: 0Y6N0ZF Detachment at Left Foot, Partial 5th Ray, Open Approach (ICD-10-PCS; principal; 2023-04-11 15:30)
DX: E11.69 Type 2 diabetes mellitus with other specified complication (principal); U07.1 COVID-19; N17.9 Acute kidney failure, unspecified; M86.271 Subacute osteomyelitis, right ankle and foot; N18.4 Chronic kidney disease, stage 4 (severe); E11.22 Type 2 diabetes mellitus with diabetic chronic kidney disease; E11.40 Type 2 diabetes mellitus with diabetic neuropathy, unspecified; E87.5 Hyperkalemia; E11.51 Type 2 diabetes mellitus with diabetic peripheral angiopathy without gangrene; D63.1 Anemia in chronic kidney disease; E78.5 Hyperlipidemia, unspecified; I12.9 Hypertensive chronic kidney disease with stage 1 through stage 4 chronic kidney disease, or unspecified chronic kidney disease; I25.10 Atherosclerotic heart disease of native coronary artery without angina pectoris; L97.519 Non-pressure chronic ulcer of other part of right foot with unspecified severity; G47.33 Obstructive sleep apnea (adult) (pediatric); Z95.1 Presence of aortocoronary bypass graft; Z95.2 Presence of prosthetic heart valve; Z79.899 Other long term (current) drug therapy; Z79.82 Long term (current) use of aspirin; Z79.4 Long term (current) use of insulin; E11.319 Type 2 diabetes mellitus with unspecified diabetic retinopathy without macular edema; E11.621 Type 2 diabetes mellitus with foot ulcer

== ENCOUNTER 2023-04-19 15:40 | Inpatient (IN) | payer BC, MEDICAID ==
[~2023-04-19] VITALS: Ht 182.9 cm; Wt 111.8 kg
[~2023-04-19 15:40] MED LIST changes: +AMOX500T2 PO; +DULA3PEN SC; -DULA3PEN SQ; +HYDR50TA PO; +VELT1POW PO
[2023-04-19 19:30] VITALS: BP 142/86; TEMP 97.1; O2SAT 94
[2023-04-19] MEDS ORDERED: ACETAMINOPHEN TAB 650MG DOSE (2X325MG) PO PRN (19:40)
[2023-04-19 20:25] LABS: BASO # 0.1 10^3/uL (0.0-0.2); BASO % 0.9 % (0.0-1.0); EOS # 0.4 10^3/uL (0.0-0.5); HEMATOCRIT 30.8 % (42.0-52.0); HEMOGLOBIN 9.8 g/dl (13.5-17.5); LYMPH # 1.4 10^3/uL (1.5-5.0); LYMPH % 11.4 % (24.0-44.0); MEAN CORPUSCULAR HGB CONC 31.8 g/dl (32.0-36.5); MONO # 1.1 10^3/uL (0.0-0.8); MONO % 8.4 % (2.0-8.0); NEUTROPHILS # 9.5 10^3/uL (1.5-8.5); NEUTROPHILS % 75.8 % (36.0-66.0); PLATELET COUNT, AUTOMATED 445 10^3/uL (150-450); WHITE BLOOD COUNT 12.6 10^3/uL (4.0-10.0)
[2023-04-19] MEDS: HYDROMORPHONE HCL 0.5 MG/ 0.5 ML SYRINGE IV PRN (20:48)
[2023-04-19] MEDS: HEPARIN SOD (PORCINE) 5000UNITS/ML 1ML VIAL/SYRINGE SC SCH (20:49)
[2023-04-19 20:52] LABS: ALBUMIN 1.9 G/DL (3.2-5.2); ALKALINE PHOSPHATASE 80 U/L (46-116); ALT/SGPT < 9 U/L (7.0-40); AST/SGOT 20 U/L (<34); BILIRUBIN,TOTAL < 0.2 MG/DL (0.3-1.2); BLOOD UREA NITROGEN 38 MG/DL (9-23); CARBON DIOXIDE LEVEL 21 MMOL/L (20-31); CHLORIDE LEVEL 113 MMOL/L (98-107); CREATININE FOR GFR 3.51 MG/DL (0.70-1.30); GLOMERULAR FILTRATION RATE 19.7 (>56); GLUCOSE, FASTING 145 MG/DL (60-100); POTASSIUM SERUM 4.5 MMOL/L (3.5-5.1); SODIUM LEVEL 143 MMOL/L (136-145); TOTAL PROTEIN 6.1 G/DL (5.7-8.2)
[2023-04-19] MEDS: AUGMENTIN 875 MG TAB PO SCH (23:49)
[2023-04-20] MEDS: HEPARIN SOD (PORCINE) 5000UNITS/ML 1ML VIAL/SYRINGE SC SCH ×3 (03:23→21:01)
[2023-04-20] MEDS: HYDROMORPHONE HCL 0.5 MG/ 0.5 ML SYRINGE IV PRN ×3 (05:36→21:00)
[2023-04-20 05:50] VITALS: BP 170/98; TEMP 98.8; O2SAT 95
[2023-04-20] MEDS ORDERED: FLOM0.4C39 PO (06:07)
[2023-04-20] MEDS ORDERED: HYDR50TA PO (06:07)
[2023-04-20] MEDS ORDERED: SODI325T9 PO (06:07)
[2023-04-20] MEDS ORDERED: RISATAB3 PO (06:07)
[2023-04-20] MEDS ORDERED: HYDR-4571 PO (06:07)
[2023-04-20] MEDS ORDERED: AMOX500T2 PO (06:07)
[2023-04-20] MEDS ORDERED: VELT1POW PO (06:07)
[2023-04-20] MEDS ORDERED: HOME MED LIST COMPLETE! XX SCH (06:10)
[2023-04-20 06:44] LABS: CALCIUM LEVEL 8.1 MG/DL (8.5-10.1); CREATININE FOR GFR 3.33 MG/DL (0.70-1.30); GLOMERULAR FILTRATION RATE 20.9 (>56); POTASSIUM SERUM 4.7 MMOL/L (3.5-5.1)
[2023-04-20] MEDS: METOPROLOL SUCC (TopROL XL) 100MG *XL* TAB PO SCH (06:52)
[2023-04-20] MEDS: AUGMENTIN 875 MG TAB PO SCH ×2 (09:56→21:01)
[2023-04-20 10:11] VITALS: BP 204/108
[2023-04-20] MEDS ORDERED: ISOSORBIDE MON. (IMDUR) 30MG XR TAB PO ONE (10:15)
[2023-04-20] MEDS: ATORVASTATIN 20 MG TAB PO SCH (10:31)
[2023-04-20] MEDS: **hydrALAZINE HCL** 25 MG TAB PO SCH ×3 (10:32→21:00)
[2023-04-20] MEDS: CLOPIDOGREL 75 MG TAB PO SCH (10:32)
[2023-04-20] MEDS: ASPIRIN 81MG ENTERIC TABLET PO SCH (10:32)
[2023-04-20] MEDS ORDERED: NITROGLYCERIN 0.4MG SUBL TABLET SL PRN (10:55)
[2023-04-20] MEDS ORDERED: GLUCAGON INJ 1MG VIAL SC PRN (11:35)
[2023-04-20] MEDS ORDERED: DEXTROSE 50% 50ML SYRINGE IV PRN (11:35)
[2023-04-20] MEDS ORDERED: GLUCOSE 4GM CHEW TABLET PO PRN (11:35)
[2023-04-20] MEDS: TAMSULOSIN 0.4 MG CAP PO SCH (11:53)
[2023-04-20] MEDS: INSULIN LISPRO (NovoLOG) PER UNIT SC SCH ×3 (11:53→20:28)
[2023-04-20] MEDS: SODIUM BICARBONATE 325 MG TAB PO SCH ×3 (11:53→21:01)
[2023-04-20] MEDS: PANTOPRAZOLE 40MG TAB (PROTONIX) PO SCH (11:53)
[2023-04-20] MEDS: PATIROMER SORBITEX CALCIUM 8.4 GM POWDER PACKET (VELTASSA) PO SCH (12:00)
[2023-04-20 13:10] VITALS: BP 147/85; TEMP 97.3; O2SAT 94
[2023-04-20 21:00] VITALS: BP 160/80; TEMP 97.9; O2SAT 95
[2023-04-21] MEDS: HEPARIN SOD (PORCINE) 5000UNITS/ML 1ML VIAL/SYRINGE SC SCH ×3 (05:17→21:50)
[2023-04-21 06:45] VITALS: BP 166/84; TEMP 98.1; O2SAT 96
[2023-04-21 07:49] LABS: BASO # 0.1 10^3/uL (0.0-0.2); BASO % 0.8 % (0.0-1.0); EOS # 0.5 10^3/uL (0.0-0.5); EOS % 3.7 % (0.0-3.0); HEMATOCRIT 32.4 % (42.0-52.0); HEMOGLOBIN 9.9 g/dl (13.5-17.5); LYMPH # 1.7 10^3/uL (1.5-5.0); LYMPH % 12.9 % (24.0-44.0); MEAN CORPUSCULAR HGB CONC 30.6 g/dl (32.0-36.5); MEAN CORPUSCULAR VOLUME 88.5 fl (80.0-96.0); MONO # 0.9 10^3/uL (0.0-0.8); NEUTROPHILS % 75.2 % (36.0-66.0); PLATELET COUNT, AUTOMATED 460 10^3/uL (150-450); RED BLOOD COUNT 3.66 10^6/uL (4.30-6.10); WHITE BLOOD COUNT 13.4 10^3/uL (4.0-10.0)
[2023-04-21 08:14] LABS: CALCIUM LEVEL 8.2 MG/DL (8.5-10.1); CREATININE FOR GFR 3.13 MG/DL (0.70-1.30); GLOMERULAR FILTRATION RATE 22.5 (>56); POTASSIUM SERUM 4.6 MMOL/L (3.5-5.1)
[2023-04-21] MEDS: SODIUM BICARBONATE 325 MG TAB PO SCH ×3 (08:27→21:50)
[2023-04-21] MEDS: INSULIN LISPRO (NovoLOG) PER UNIT SC SCH ×4 (08:27→21:00)
[2023-04-21] MEDS: ATORVASTATIN 20 MG TAB PO SCH (08:27)
[2023-04-21] MEDS: TAMSULOSIN 0.4 MG CAP PO SCH (08:28)
[2023-04-21] MEDS: METOPROLOL SUCC (TopROL XL) 100MG *XL* TAB PO SCH (08:28)
[2023-04-21] MEDS: ISOSORBIDE MON. (IMDUR) 30MG XR TAB PO SCH (08:28)
[2023-04-21] MEDS: AUGMENTIN 875 MG TAB PO SCH ×2 (08:28→21:50)
[2023-04-21] MEDS: PANTOPRAZOLE 40MG TAB (PROTONIX) PO SCH (08:29)
[2023-04-21] MEDS: **hydrALAZINE HCL** 25 MG TAB PO SCH ×3 (08:29→21:51)
[2023-04-21] MEDS: CLOPIDOGREL 75 MG TAB PO SCH (08:29)
[2023-04-21] MEDS: ASPIRIN 81MG ENTERIC TABLET PO SCH (08:33)
[2023-04-21] MEDS ORDERED: ENTER DRUG NAME HERE (PATIENT'S OWN MED) PO SCH (09:00)
[2023-04-21] MEDS: HYDROMORPHONE HCL 0.5 MG/ 0.5 ML SYRINGE IV PRN ×2 (10:28→21:52)
[2023-04-21] MEDS: PATIROMER SORBITEX CALCIUM 8.4 GM POWDER PACKET (VELTASSA) PO SCH (12:00)
[2023-04-21 14:00] VITALS: BP 133/86; TEMP 96.7; O2SAT 97
[2023-04-21 20:00] VITALS: BP 156/95; TEMP 97.5; O2SAT 95
[2023-04-22] MEDS: HYDROMORPHONE HCL 0.5 MG/ 0.5 ML SYRINGE IV PRN ×2 (03:05→18:04)
[2023-04-22] MEDS: HEPARIN SOD (PORCINE) 5000UNITS/ML 1ML VIAL/SYRINGE SC SCH ×3 (05:35→20:18)
[2023-04-22 05:49] LABS: BASO # 0.1 10^3/uL (0.0-0.2); BASO % 0.9 % (0.0-1.0); EOS # 0.4 10^3/uL (0.0-0.5); EOS % 3.3 % (0.0-3.0); HEMATOCRIT 32.6 % (42.0-52.0); HEMOGLOBIN 9.8 g/dl (13.5-17.5); LYMPH # 2.2 10^3/uL (1.5-5.0); LYMPH % 16.4 % (24.0-44.0); MEAN CORPUSCULAR HEMOGLOBIN 26.9 pg (27.0-33.0); MEAN CORPUSCULAR HGB CONC 30.1 g/dl (32.0-36.5); MEAN CORPUSCULAR VOLUME 89.6 fl (80.0-96.0); MONO # 1.2 10^3/uL (0.0-0.8); MONO % 8.8 % (2.0-8.0); NEUTROPHILS # 9.4 10^3/uL (1.5-8.5); PLATELET COUNT, AUTOMATED 459 10^3/uL (150-450); RED BLOOD COUNT 3.64 10^6/uL (4.30-6.10); WHITE BLOOD COUNT 13.5 10^3/uL (4.0-10.0)
[2023-04-22 06:00] VITALS: BP 161/96; TEMP 97.5; O2SAT 94
[2023-04-22 06:13] LABS: CALCIUM LEVEL 7.9 MG/DL (8.5-10.1); CREATININE FOR GFR 3.32 MG/DL (0.70-1.30); POTASSIUM SERUM 4.5 MMOL/L (3.5-5.1)
[2023-04-22] MEDS: SODIUM BICARBONATE 325 MG TAB PO SCH ×3 (08:29→20:16)
[2023-04-22] MEDS: TAMSULOSIN 0.4 MG CAP PO SCH (08:29)
[2023-04-22] MEDS: INSULIN LISPRO (NovoLOG) PER UNIT SC SCH ×4 (08:29→20:07)
[2023-04-22] MEDS: **hydrALAZINE HCL** 25 MG TAB PO SCH ×3 (08:30→20:17)
[2023-04-22] MEDS: PANTOPRAZOLE 40MG TAB (PROTONIX) PO SCH (08:30)
[2023-04-22] MEDS: METOPROLOL SUCC (TopROL XL) 100MG *XL* TAB PO SCH (08:30)
[2023-04-22] MEDS: AUGMENTIN 875 MG TAB PO SCH (08:30)
[2023-04-22] MEDS: CLOPIDOGREL 75 MG TAB PO SCH (08:30)
[2023-04-22] MEDS: ISOSORBIDE MON. (IMDUR) 30MG XR TAB PO SCH (08:30)
[2023-04-22] MEDS: ASPIRIN 81MG ENTERIC TABLET PO SCH (08:30)
[2023-04-22] MEDS: ATORVASTATIN 20 MG TAB PO SCH (08:31)
[2023-04-22] MEDS ORDERED: AMOX500T2 PO (09:47)
[2023-04-22] MEDS: PATIROMER SORBITEX CALCIUM 8.4 GM POWDER PACKET (VELTASSA) PO SCH (12:00)
[2023-04-22 14:00] VITALS: BP_SYST 168; BP_SYST 172; BP_DIAS 105; BP_DIAS 58; TEMP 97.9; O2SAT 97
[2023-04-22] MEDS: AMPICILLIN SOD/SULBACTAM SOD 3 GM in D5W MINI-BAG PLUS 100 ML IV SCH ×2 (14:25→20:16)
[2023-04-22 19:57] VITALS: BP 133/78; TEMP 97.9; O2SAT 96
[2023-04-23] MEDS: HYDROMORPHONE HCL 0.5 MG/ 0.5 ML SYRINGE IV PRN ×4 (00:09→22:32)
[2023-04-23] MEDS: AMPICILLIN SOD/SULBACTAM SOD 3 GM in D5W MINI-BAG PLUS 100 ML IV SCH ×4 (01:34→21:14)
[2023-04-23] MEDS: HEPARIN SOD (PORCINE) 5000UNITS/ML 1ML VIAL/SYRINGE SC SCH ×5 (05:18→22:00)
[2023-04-23 06:18] LABS: BASO # 0.1 10^3/uL (0.0-0.2); BASO % 0.5 % (0.0-1.0); EOS # 0.5 10^3/uL (0.0-0.5); EOS % 3.8 % (0.0-3.0); HEMATOCRIT 30.9 % (42.0-52.0); HEMOGLOBIN 9.2 g/dl (13.5-17.5); LYMPH # 2.1 10^3/uL (1.5-5.0); MEAN CORPUSCULAR HEMOGLOBIN 26.7 pg (27.0-33.0); MEAN CORPUSCULAR HGB CONC 29.8 g/dl (32.0-36.5); MEAN CORPUSCULAR VOLUME 89.8 fl (80.0-96.0); MONO # 1.2 10^3/uL (0.0-0.8); MONO % 9.6 % (2.0-8.0); NEUTROPHILS # 8.5 10^3/uL (1.5-8.5); NEUTROPHILS % 68.5 % (36.0-66.0); PLATELET COUNT, AUTOMATED 442 10^3/uL (150-450); RED BLOOD COUNT 3.44 10^6/uL (4.30-6.10); WHITE BLOOD COUNT 12.4 10^3/uL (4.0-10.0)
[2023-04-23 06:29] LABS: CALCIUM LEVEL 8.1 MG/DL (8.5-10.1); CREATININE FOR GFR 3.25 MG/DL (0.70-1.30); GLOMERULAR FILTRATION RATE 21.5 (>56); POTASSIUM SERUM 4.5 MMOL/L (3.5-5.1)
[2023-04-23 06:30] VITALS: TEMP 97.9; O2SAT 95
[2023-04-23 06:45] VITALS: BP 190/108
[2023-04-23] MEDS: **hydrALAZINE HCL** 25 MG TAB PO SCH ×3 (06:53→21:15)
[2023-04-23 07:37] VITALS: BP 184/102
[2023-04-23] MEDS ORDERED: **hydrALAZINE HCL** 25 MG TAB PO ONE (08:00)
[2023-04-23] MEDS: TAMSULOSIN 0.4 MG CAP PO SCH (08:09)
[2023-04-23] MEDS: ISOSORBIDE MON. (IMDUR) 30MG XR TAB PO SCH (08:09)
[2023-04-23] MEDS: PANTOPRAZOLE 40MG TAB (PROTONIX) PO SCH (08:09)
[2023-04-23] MEDS: ATORVASTATIN 20 MG TAB PO SCH (08:10)
[2023-04-23] MEDS: CLOPIDOGREL 75 MG TAB PO SCH (08:10)
[2023-04-23] MEDS: METOPROLOL SUCC (TopROL XL) 100MG *XL* TAB PO SCH (08:10)
[2023-04-23] MEDS: SODIUM BICARBONATE 325 MG TAB PO SCH ×3 (08:11→21:15)
[2023-04-23] MEDS: ASPIRIN 81MG ENTERIC TABLET PO SCH (08:11)
[2023-04-23] MEDS: INSULIN LISPRO (NovoLOG) PER UNIT SC SCH ×4 (08:11→21:00)
[2023-04-23 09:35] VITALS: BP 176/94
[2023-04-23] MEDS: PATIROMER SORBITEX CALCIUM 8.4 GM POWDER PACKET (VELTASSA) PO SCH (12:00)
[2023-04-23 14:00] VITALS: BP 149/81; TEMP 97.7; O2SAT 95
[2023-04-23 20:30] VITALS: BP 160/94; TEMP 97.9; O2SAT 96
[2023-04-24] VITALS (7 sets, daily range): BP systolic 134–194; BP diastolic 89–119; TEMP 97.8–98.4; O2SAT 93–97
[2023-04-24] MEDS: AMPICILLIN SOD/SULBACTAM SOD 3 GM in D5W MINI-BAG PLUS 100 ML IV SCH ×4 (01:21→19:20)
[2023-04-24] MEDS: HEPARIN SOD (PORCINE) 5000UNITS/ML 1ML VIAL/SYRINGE SC SCH ×3 (05:09→20:35)
[2023-04-24 05:50] LABS: BASO # 0.1 10^3/uL (0.0-0.2); BASO % 0.8 % (0.0-1.0); EOS # 0.4 10^3/uL (0.0-0.5); EOS % 3.5 % (0.0-3.0); HEMATOCRIT 31.9 % (42.0-52.0); HEMOGLOBIN 9.7 g/dl (13.5-17.5); LYMPH # 1.8 10^3/uL (1.5-5.0); MEAN CORPUSCULAR HEMOGLOBIN 27.5 pg (27.0-33.0); MEAN CORPUSCULAR HGB CONC 30.4 g/dl (32.0-36.5); MEAN CORPUSCULAR VOLUME 90.4 fl (80.0-96.0); MONO # 1.2 10^3/uL (0.0-0.8); MONO % 9.2 % (2.0-8.0); NEUTROPHILS # 9.1 10^3/uL (1.5-8.5); NEUTROPHILS % 72.1 % (36.0-66.0); PLATELET COUNT, AUTOMATED 436 10^3/uL (150-450); RED BLOOD COUNT 3.53 10^6/uL (4.30-6.10); WHITE BLOOD COUNT 12.6 10^3/uL (4.0-10.0)
[2023-04-24] MEDS: **hydrALAZINE HCL** 25 MG TAB PO SCH ×3 (05:51→20:34)
[2023-04-24 06:12] LABS: CREATININE FOR GFR 3.28 MG/DL (0.70-1.30); GLOMERULAR FILTRATION RATE 21.3 (>56); POTASSIUM SERUM 4.6 MMOL/L (3.5-5.1)
[2023-04-24] MEDS ORDERED: D5W 2,000 ML IV SCH (07:55)
[2023-04-24] MEDS: ASPIRIN 81MG ENTERIC TABLET PO SCH (08:56)
[2023-04-24] MEDS: INSULIN LISPRO (NovoLOG) PER UNIT SC SCH ×4 (08:56→20:30)
[2023-04-24] MEDS: ISOSORBIDE MON. (IMDUR) 30MG XR TAB PO SCH (08:58)
[2023-04-24] MEDS: ATORVASTATIN 20 MG TAB PO SCH (08:59)
[2023-04-24] MEDS: SODIUM BICARBONATE 325 MG TAB PO SCH ×3 (08:59→20:35)
[2023-04-24] MEDS: TAMSULOSIN 0.4 MG CAP PO SCH (08:59)
[2023-04-24] MEDS: METOPROLOL SUCC (TopROL XL) 100MG *XL* TAB PO SCH (08:59)
[2023-04-24] MEDS: CLOPIDOGREL 75 MG TAB PO SCH (08:59)
[2023-04-24] MEDS: PANTOPRAZOLE 40MG TAB (PROTONIX) PO SCH (08:59)
[2023-04-24] MEDS: PATIROMER SORBITEX CALCIUM 8.4 GM POWDER PACKET (VELTASSA) PO SCH (12:00)
[2023-04-24] MEDS ORDERED: cloNIDine 0.1MG TABLET PO SCH (13:55)
[2023-04-24] MEDS: HYDROMORPHONE HCL 0.5 MG/ 0.5 ML SYRINGE IV PRN ×3 (14:03→22:54)
[2023-04-24 15:01] LABS: CALCIUM LEVEL 8.3 MG/DL (8.5-10.1); CREATININE FOR GFR 3.17 MG/DL (0.70-1.30); GLOMERULAR FILTRATION RATE 22.1 (>56); POTASSIUM SERUM 4.4 MMOL/L (3.5-5.1)
[2023-04-25] MEDS: AMPICILLIN SOD/SULBACTAM SOD 3 GM in D5W MINI-BAG PLUS 100 ML IV SCH ×3 (01:00→12:58)
[2023-04-25] MEDS: HYDROMORPHONE HCL 0.5 MG/ 0.5 ML SYRINGE IV PRN ×2 (03:56→13:15)
[2023-04-25] MEDS: HEPARIN SOD (PORCINE) 5000UNITS/ML 1ML VIAL/SYRINGE SC SCH ×2 (05:00→12:58)
[2023-04-25 06:28] VITALS: BP 158/80; TEMP 97.9; O2SAT 92
[2023-04-25 06:30] LABS: BASO # 0.1 10^3/uL (0.0-0.2); EOS # 0.7 10^3/uL (0.0-0.5); EOS % 5.9 % (0.0-3.0); HEMATOCRIT 33.3 % (42.0-52.0); LYMPH # 1.7 10^3/uL (1.5-5.0); LYMPH % 14.4 % (24.0-44.0); MEAN CORPUSCULAR HEMOGLOBIN 27.4 pg (27.0-33.0); MEAN CORPUSCULAR VOLUME 91.2 fl (80.0-96.0); MONO # 0.9 10^3/uL (0.0-0.8); MONO % 7.3 % (2.0-8.0); NEUTROPHILS # 8.2 10^3/uL (1.5-8.5); NEUTROPHILS % 70.9 % (36.0-66.0); PLATELET COUNT, AUTOMATED 436 10^3/uL (150-450); RED BLOOD COUNT 3.65 10^6/uL (4.30-6.10); WHITE BLOOD COUNT 11.6 10^3/uL (4.0-10.0)
[2023-04-25 06:49] LABS: CALCIUM LEVEL 8.4 MG/DL (8.5-10.1); CREATININE FOR GFR 3.54 MG/DL (0.70-1.30); GLOMERULAR FILTRATION RATE 19.5 (>56); POTASSIUM SERUM 4.5 MMOL/L (3.5-5.1)
[2023-04-25] MEDS: CLOPIDOGREL 75 MG TAB PO SCH (08:45)
[2023-04-25] MEDS: PANTOPRAZOLE 40MG TAB (PROTONIX) PO SCH (08:45)
[2023-04-25] MEDS: SODIUM BICARBONATE 325 MG TAB PO SCH (08:45)
[2023-04-25] MEDS: TAMSULOSIN 0.4 MG CAP PO SCH (08:45)
[2023-04-25] MEDS: ASPIRIN 81MG ENTERIC TABLET PO SCH (08:45)
[2023-04-25] MEDS: INSULIN LISPRO (NovoLOG) PER UNIT SC SCH ×2 (08:45→12:59)
[2023-04-25 08:46] VITALS: BP 158/80
[2023-04-25] MEDS: ISOSORBIDE MON. (IMDUR) 30MG XR TAB PO SCH (08:46)
[2023-04-25] MEDS: METOPROLOL SUCC (TopROL XL) 100MG *XL* TAB PO SCH (08:46)
[2023-04-25] MEDS: ATORVASTATIN 20 MG TAB PO SCH (08:46)
[2023-04-25] MEDS: **hydrALAZINE HCL** 25 MG TAB PO SCH (08:47)
[2023-04-25] MEDS: PATIROMER SORBITEX CALCIUM 8.4 GM POWDER PACKET (VELTASSA) PO SCH (11:37)
[2023-04-25 12:53] VITALS: BP 159/100
[2023-04-25 14:00] VITALS: BP 170/60; TEMP 97; O2SAT 96
[2023-04-25] MEDS ORDERED: ISOS1TAB35 PO (14:19)
[2023-04-25] MEDS ORDERED: HYDR100T PO (14:19)
[2023-04-25] MEDS ORDERED: METO200T28 PO (14:19)
[2023-04-25] MEDS ORDERED: TOUJ300I2 SC (14:22)
[2023-04-25] MEDS ORDERED: ADULKIT XX (14:23)
[2023-04-25] MEDS ORDERED: CLONI1TA PO ×2 (14:31→14:45)
[2023-04-25] MEDS ORDERED: ISOSORBIDE MON. (IMDUR) 30MG XR TAB PO SCH (21:00)
[2023-04-26] MEDS ORDERED: METO1TAB32 (08:16)
[2023-04-26] MEDS ORDERED: METO200T28 PO (09:14)
[2023-04-26] MEDS ORDERED: ISOS1TAB35 PO (09:14)
[2023-04-26] MEDS ORDERED: CLONI1TA PO (09:35)
[2023-04-26] MEDS ORDERED: PANT-23 PO (09:35)
[2023-04-26] MEDS ORDERED: HYDR-3713 PO (09:35)
== END 2023-04-25 16:18 | disposition home health service (06) | DRG 349 ==
LOC: M MSPAV 19:30
PROVIDERS: ADMIT Internal Medicine; ATTEND Internal Medicine
DX: T87.81 Dehiscence of amputation stump (principal); N18.4 Chronic kidney disease, stage 4 (severe); E11.22 Type 2 diabetes mellitus with diabetic chronic kidney disease; I12.9 Hypertensive chronic kidney disease with stage 1 through stage 4 chronic kidney disease, or unspecified chronic kidney disease; Z79.4 Long term (current) use of insulin; D63.1 Anemia in chronic kidney disease; N40.0 Benign prostatic hyperplasia without lower urinary tract symptoms; E66.9 Obesity, unspecified; K21.9 Gastro-esophageal reflux disease without esophagitis; G89.29 Other chronic pain; Z79.82 Long term (current) use of aspirin; Z79.899 Other long term (current) drug therapy; I25.10 Atherosclerotic heart disease of native coronary artery without angina pectoris; Z86.73 Personal history of transient ischemic attack (TIA), and cerebral infarction without residual deficits; Z95.1 Presence of aortocoronary bypass graft; Y83.5 Amputation of limb(s) as the cause of abnormal reaction of the patient, or of later complication, without mention of misadventure at the time of the procedure; T87.43 Infection of amputation stump, right lower extremity; T87.53 Necrosis of amputation stump, right lower extremity

== ENCOUNTER 2023-04-26 05:14 | Inpatient (IN) | payer BC, MEDICAID ==
[~2023-04-26] VITALS: Ht 182.9 cm; Wt 112.3 kg
[~2023-04-26 05:14] MED LIST changes: +ADULKIT XX; +HYDR-4571 PO; +METO200T28 PO
[2023-04-26] MEDS ORDERED: hydrALAZINE 20MG/ML 1ML VIAL IV STA (05:29)
[2023-04-26] MEDS ORDERED: cloNIDine 0.1MG TABLET PO ONE (05:35)
[2023-04-26] MEDS ORDERED: ANEXSIA, NORCO 7.5MG/325MG TABLET(HYDROCODONE/APAP) PO ONE (05:40)
[2023-04-26 05:41] LABS: BASO # 0.1 10^3/uL (0.0-0.2); BASO % 0.6 % (0.0-1.0); EOS # 0.6 10^3/uL (0.0-0.5); EOS % 4.5 % (0.0-3.0); HEMATOCRIT 33.4 % (42.0-52.0); HEMOGLOBIN 10.2 g/dl (13.5-17.5); LYMPH # 1.6 10^3/uL (1.5-5.0); LYMPH % 11.3 % (24.0-44.0); MEAN CORPUSCULAR HEMOGLOBIN 27.5 pg (27.0-33.0); MEAN CORPUSCULAR HGB CONC 30.5 g/dl (32.0-36.5); MONO # 1.1 10^3/uL (0.0-0.8); MONO % 7.7 % (2.0-8.0); NEUTROPHILS # 10.4 10^3/uL (1.5-8.5); NEUTROPHILS % 75.4 % (36.0-66.0); PLATELET COUNT, AUTOMATED 423 10^3/uL (150-450); RED BLOOD COUNT 3.71 10^6/uL (4.30-6.10); WHITE BLOOD COUNT 13.9 10^3/uL (4.0-10.0)
[2023-04-26 06:05] LABS: CALCIUM LEVEL 8.3 MG/DL (8.5-10.1); CK-MB VALUE MASS 2.9 NG/ML (<3.6); CREATININE FOR GFR 3.85 MG/DL (0.70-1.30); GLOMERULAR FILTRATION RATE 17.7 (>56); POTASSIUM SERUM 4.5 MMOL/L (3.5-5.1)
[2023-04-26 06:07] LABS: FREE T4 1.2 NG/DL (0.89-1.76); THYROID STIMULATING HORMONE 2.554 uIU/ML (0.55-4.78)
[2023-04-26 06:11] LABS: MB/CK RELATIVE INDEX 1.79 (< OR =4)
[2023-04-26] MEDS ORDERED: **hydrALAZINE HCL** 25 MG TAB PO ONE (06:20)
[2023-04-26] MEDS ORDERED: FUROSEMIDE 40MG/4ML VIAL IV ONE (07:25)
[2023-04-26 07:44] LABS: CK-MB VALUE MASS 3.1 NG/ML (<3.6)
[2023-04-26 07:47] LABS: MB/CK RELATIVE INDEX 2.02 (< OR =4)
[2023-04-26] MEDS ORDERED: METO1TAB32 (08:16)
[2023-04-26] MEDS ORDERED: MED REC IN PROGRESS XX SCH (08:45)
[2023-04-26 08:48] LABS: CK-MB VALUE MASS 2.5 NG/ML (<3.6)
[2023-04-26 08:50] LABS: MB/CK RELATIVE INDEX 1.83 (< OR =4)
[2023-04-26] MEDS ORDERED: ISOS1TAB35 PO (09:14)
[2023-04-26] MEDS ORDERED: METO200T28 PO (09:14)
[2023-04-26] MEDS ORDERED: HYDR-3713 PO (09:35)
[2023-04-26] MEDS ORDERED: PANT-23 PO (09:35)
[2023-04-26] MEDS ORDERED: CLONI1TA PO (09:35)
[2023-04-26] MEDS ORDERED: HOME MED LIST COMPLETE! XX SCH (09:50)
[2023-04-26] MEDS ORDERED: ACETAMINOPHEN TAB 650MG DOSE (2X325MG) PO PRN (10:35)
[2023-04-26] MEDS ORDERED: cloNIDine 0.1MG TABLET PO PRN (10:35)
[2023-04-26] MEDS ORDERED: GLUCOSE 4GM CHEW TABLET PO PRN (10:35)
[2023-04-26] MEDS ORDERED: DEXTROSE 50% 50ML SYRINGE IV PRN (10:35)
[2023-04-26] MEDS ORDERED: GLUCAGON INJ 1MG VIAL SC PRN (10:35)
[2023-04-26] MEDS ORDERED: NORCO, ANEXSIA 5/325MG TABLET (HYDROcodone/ACETAMINOPHEN) PO PRN (10:35)
[2023-04-26] MEDS: METOPROLOL SUCC (TopROL XL) 100MG *XL* TAB PO SCH (12:36)
[2023-04-26] MEDS: CLOPIDOGREL 75 MG TAB PO SCH (12:37)
[2023-04-26] MEDS: ASPIRIN 81MG ENTERIC TABLET PO SCH (12:37)
[2023-04-26] MEDS: ATORVASTATIN 20 MG TAB PO SCH (12:37)
[2023-04-26] MEDS: TAMSULOSIN 0.4 MG CAP PO SCH (12:37)
[2023-04-26] MEDS: PANTOPRAZOLE 40MG TAB (PROTONIX) PO SCH (12:38)
[2023-04-26] MEDS: ISOSORBIDE MON. (IMDUR) 30MG XR TAB PO SCH ×2 (12:38→20:37)
[2023-04-26] MEDS: **hydrALAZINE** 50 MG TAB PO SCH ×3 (12:39→20:37)
[2023-04-26] MEDS: INSULIN LISPRO (NovoLOG) PER UNIT SC SCH ×2 (12:47→17:30)
[2023-04-26] MEDS: HEPARIN SOD (PORCINE) 5000UNITS/ML 1ML VIAL/SYRINGE SC SCH ×2 (14:15→22:00)
[2023-04-26] MEDS: FUROSEMIDE 40MG/4ML VIAL IV SCH (16:16)
[2023-04-26] MEDS: NORCO, ANEXSIA 5/325MG TABLET (HYDROcodone/ACETAMINOPHEN) PO PRN ×2 (16:17→20:38)
[2023-04-26] MEDS: SODIUM BICARBONATE 325 MG TAB PO SCH ×2 (16:35→20:37)
[2023-04-26 18:40] VITALS: BP 154/84; TEMP 97.7; O2SAT 96
[2023-04-26 20:00] VITALS: BP 122/69; TEMP 98.1; O2SAT 97
[2023-04-26] MEDS: LEVEMIR (INSULIN DETEMIR) 1 UNITS/0.01ML SC SCH (20:38)
[2023-04-26] MEDS ORDERED: INSULIN LISPRO (NovoLOG) PER UNIT SC SCH (21:00)
[2023-04-27] MEDS: NORCO, ANEXSIA 5/325MG TABLET (HYDROcodone/ACETAMINOPHEN) PO PRN ×3 (01:29→16:10)
[2023-04-27] MEDS: HEPARIN SOD (PORCINE) 5000UNITS/ML 1ML VIAL/SYRINGE SC SCH ×2 (05:24→15:00)
[2023-04-27 06:00] VITALS: BP 161/96; TEMP 98.1; O2SAT 94
[2023-04-27 06:05] LABS: HEMATOCRIT 30.2 % (42.0-52.0); HEMOGLOBIN 9.1 g/dl (13.5-17.5); MEAN CORPUSCULAR HEMOGLOBIN 27.4 pg (27.0-33.0); MEAN CORPUSCULAR HGB CONC 30.1 g/dl (32.0-36.5); PLATELET COUNT, AUTOMATED 335 10^3/uL (150-450); RED BLOOD COUNT 3.32 10^6/uL (4.30-6.10); WHITE BLOOD COUNT 8.8 10^3/uL (4.0-10.0)
[2023-04-27 06:28] LABS: CALCIUM LEVEL 8.2 MG/DL (8.5-10.1); CREATININE FOR GFR 3.91 MG/DL (0.70-1.30); GLOMERULAR FILTRATION RATE 17.4 (>56); MAGNESIUM LEVEL 1.7 MG/DL (1.8-2.4); POTASSIUM SERUM 4.5 MMOL/L (3.5-5.1)
[2023-04-27] MEDS: INSULIN LISPRO (NovoLOG) PER UNIT SC SCH ×3 (07:30→17:27)
[2023-04-27] MEDS ORDERED: MAGNESIUM OXIDE 400MG TAB (MAG-OX) PO ONE (07:30)
[2023-04-27] MEDS: LEVEMIR (INSULIN DETEMIR) 1 UNITS/0.01ML SC SCH (08:48)
[2023-04-27] MEDS: CLOPIDOGREL 75 MG TAB PO SCH (08:50)
[2023-04-27] MEDS: ATORVASTATIN 20 MG TAB PO SCH (08:50)
[2023-04-27] MEDS: FUROSEMIDE 40MG/4ML VIAL IV SCH ×2 (08:50→16:19)
[2023-04-27] MEDS: ASPIRIN 81MG ENTERIC TABLET PO SCH (08:53)
[2023-04-27] MEDS: ISOSORBIDE MON. (IMDUR) 30MG XR TAB PO SCH (08:53)
[2023-04-27] MEDS: **hydrALAZINE** 50 MG TAB PO SCH ×2 (08:54→16:11)
[2023-04-27] MEDS: PANTOPRAZOLE 40MG TAB (PROTONIX) PO SCH (08:56)
[2023-04-27] MEDS: TAMSULOSIN 0.4 MG CAP PO SCH (08:56)
[2023-04-27] MEDS: SODIUM BICARBONATE 325 MG TAB PO SCH ×2 (08:58→16:11)
[2023-04-27] MEDS: METOPROLOL SUCC (TopROL XL) 100MG *XL* TAB PO SCH (08:58)
[2023-04-27 09:04] VITALS: BP 190/92
[2023-04-27 10:38] VITALS: BP 140/70
[2023-04-27 14:00] VITALS: BP 143/77; TEMP 98.1; O2SAT 98
[2023-04-27 16:07] VITALS: BP 143/79
[2023-04-27 16:11] VITALS: BP 143/79
[2023-04-27] MEDS ORDERED: FURO40TA2 PO (16:55)
== END 2023-04-27 17:48 | disposition home or self-care (01) | DRG 199 ==
LOC: M ED 05:14 → M ED INP 10:35 → M MSPAV 18:38
PROVIDERS: ADMIT Family Medicine; ATTEND Family Medicine
DX: I16.9 Hypertensive crisis, unspecified (principal); I50.33 Acute on chronic diastolic (congestive) heart failure; N18.9 Chronic kidney disease, unspecified; I25.10 Atherosclerotic heart disease of native coronary artery without angina pectoris; E11.9 Type 2 diabetes mellitus without complications; Z86.73 Personal history of transient ischemic attack (TIA), and cerebral infarction without residual deficits; Z79.899 Other long term (current) drug therapy; Z79.82 Long term (current) use of aspirin; N40.0 Benign prostatic hyperplasia without lower urinary tract symptoms; E66.9 Obesity, unspecified; Z89.422 Acquired absence of other left toe(s); I13.0 Hypertensive heart and chronic kidney disease with heart failure and stage 1 through stage 4 chronic kidney disease, or unspecified chronic kidney disease

== ENCOUNTER 2023-06-07 15:27 | Inpatient (IN) | payer BC, MEDICAID ==
[~2023-06-07] VITALS: Ht 182.9 cm; Wt 110.0 kg
[~2023-06-07 15:27] MED LIST changes: +ASPI81TA26 PO; +FURO40TA2 PO; +HYDR-3713 PO; +MAGN400T2 PO; +METO1TAB32
[2023-06-07 16:58] LABS: BASO % 0.4 % (0.0-1.0); EOS # 0.3 10^3/uL (0.0-0.5); EOS % 3.7 % (0.0-3.0); HEMATOCRIT 30.6 % (42.0-52.0); HEMOGLOBIN 9.5 g/dl (13.5-17.5); LYMPH # 1.5 10^3/uL (1.5-5.0); LYMPH % 16.1 % (24.0-44.0); MEAN CORPUSCULAR HEMOGLOBIN 27.1 pg (27.0-33.0); MEAN CORPUSCULAR VOLUME 87.2 fl (80.0-96.0); MONO # 0.8 10^3/uL (0.0-0.8); MONO % 9.1 % (2.0-8.0); NEUTROPHILS # 6.4 10^3/uL (1.5-8.5); NEUTROPHILS % 70.4 % (36.0-66.0); PLATELET COUNT, AUTOMATED 318 10^3/uL (150-450); RED BLOOD COUNT 3.51 10^6/uL (4.30-6.10); WHITE BLOOD COUNT 9.1 10^3/uL (4.0-10.0)
[2023-06-07] MEDS ORDERED: MED REC IN PROGRESS XX SCH (18:35)
[2023-06-07] MEDS ORDERED: TOUJ300I2 SC (18:45)
[2023-06-07] MEDS ORDERED: MAGN400T2 PO (18:45)
[2023-06-07] MEDS ORDERED: HYDR100T PO (18:45)
[2023-06-07] MEDS ORDERED: TORS20TA2 PO (18:45)
[2023-06-07] MEDS ORDERED: MED HIST COMMENT (18:50)
[2023-06-07] MEDS ORDERED: HOME MED LIST COMPLETE! XX SCH (18:55)
[2023-06-07] MEDS: AMPICILLIN SOD/SULBACTAM SOD 3 GM in D5W MINI-BAG PLUS 100 ML IV SCH (20:31)
[2023-06-07] MEDS: ISOSORBIDE MON. (IMDUR) 30MG XR TAB PO SCH (20:33)
[2023-06-07] MEDS: **hydrALAZINE** 50 MG TAB PO SCH (20:34)
[2023-06-07] MEDS: NORCO, ANEXSIA 5/325MG TABLET (HYDROcodone/ACETAMINOPHEN) PO PRN (21:06)
[2023-06-07] MEDS: SODIUM BICARBONATE 325 MG TAB PO SCH (21:34)
[2023-06-07 23:11] LABS: RSV AMPLIFICATION NEGATIVE (NEGATIVE)
[2023-06-08 02:19] LABS: HEMATOCRIT 29.6 % (42.0-52.0); HEMOGLOBIN 9.1 g/dl (13.5-17.5)
[2023-06-08] MEDS: AMPICILLIN SOD/SULBACTAM SOD 3 GM in D5W MINI-BAG PLUS 100 ML IV SCH ×4 (04:05→21:09)
[2023-06-08 04:52] VITALS: BP 170/98; TEMP 97.5; O2SAT 98
[2023-06-08] MEDS: NORCO, ANEXSIA 5/325MG TABLET (HYDROcodone/ACETAMINOPHEN) PO PRN ×2 (05:14→10:30)
[2023-06-08 06:17] LABS: HEMATOCRIT 31.7 % (42.0-52.0); HEMOGLOBIN 9.7 g/dl (13.5-17.5); MEAN CORPUSCULAR HEMOGLOBIN 26.8 pg (27.0-33.0); MEAN CORPUSCULAR HGB CONC 30.6 g/dl (32.0-36.5); MEAN CORPUSCULAR VOLUME 87.6 fl (80.0-96.0); PLATELET COUNT, AUTOMATED 331 10^3/uL (150-450); RED BLOOD COUNT 3.62 10^6/uL (4.30-6.10); WHITE BLOOD COUNT 9.2 10^3/uL (4.0-10.0)
[2023-06-08 06:45] LABS: CALCIUM LEVEL 8.2 MG/DL (8.5-10.1); GLOMERULAR FILTRATION RATE 16.9 (>56); POTASSIUM SERUM 4.2 MMOL/L (3.5-5.1)
[2023-06-08] MEDS: ASPIRIN 81MG ENTERIC TABLET PO SCH (09:12)
[2023-06-08] MEDS: ISOSORBIDE MON. (IMDUR) 30MG XR TAB PO SCH ×2 (09:13→21:07)
[2023-06-08] MEDS: METOPROLOL SUCC (TopROL XL) 100MG *XL* TAB PO SCH (09:13)
[2023-06-08] MEDS: ATORVASTATIN 20 MG TAB PO SCH (09:13)
[2023-06-08] MEDS: SODIUM BICARBONATE 325 MG TAB PO SCH ×2 (09:14→21:07)
[2023-06-08] MEDS: **hydrALAZINE** 50 MG TAB PO SCH ×3 (09:14→21:07)
[2023-06-08] MEDS: PANTOPRAZOLE 40MG TAB (PROTONIX) PO SCH (09:14)
[2023-06-08] MEDS: TORSEMIDE 20 MG TAB PO SCH (09:14)
[2023-06-08] MEDS: MAGNESIUM OXIDE 400MG TAB (MAG-OX) PO SCH (09:14)
[2023-06-08] MEDS: TAMSULOSIN 0.4 MG CAP PO SCH (09:14)
[2023-06-08] MEDS: CLOPIDOGREL 75 MG TAB PO SCH (09:14)
[2023-06-08 14:00] VITALS: BP 100/60; TEMP 98.1; O2SAT 91
[2023-06-08 20:40] VITALS: BP 111/63; TEMP 98.2; O2SAT 95
[2023-06-09] MEDS: AMPICILLIN SOD/SULBACTAM SOD 3 GM in D5W MINI-BAG PLUS 100 ML IV SCH ×4 (02:00→20:19)
[2023-06-09 05:22] VITALS: BP 136/83; TEMP 98.1; O2SAT 94
[2023-06-09] MEDS: NORCO, ANEXSIA 5/325MG TABLET (HYDROcodone/ACETAMINOPHEN) PO PRN ×2 (05:26→20:25)
[2023-06-09 06:49] LABS: HEMATOCRIT 30.9 % (42.0-52.0); HEMOGLOBIN 9.4 g/dl (13.5-17.5); MEAN CORPUSCULAR HEMOGLOBIN 27.2 pg (27.0-33.0); MEAN CORPUSCULAR HGB CONC 30.4 g/dl (32.0-36.5); MEAN CORPUSCULAR VOLUME 89.3 fl (80.0-96.0); PLATELET COUNT, AUTOMATED 305 10^3/uL (150-450); RED BLOOD COUNT 3.46 10^6/uL (4.30-6.10); WHITE BLOOD COUNT 8.9 10^3/uL (4.0-10.0)
[2023-06-09 07:14] LABS: CALCIUM LEVEL 7.9 MG/DL (8.5-10.1); CREATININE FOR GFR 4.21 MG/DL (0.70-1.30); POTASSIUM SERUM 4.3 MMOL/L (3.5-5.1)
[2023-06-09] MEDS: CLOPIDOGREL 75 MG TAB PO SCH (08:29)
[2023-06-09] MEDS: ASPIRIN 81MG ENTERIC TABLET PO SCH (08:30)
[2023-06-09] MEDS: **hydrALAZINE** 50 MG TAB PO SCH ×3 (08:30→20:18)
[2023-06-09] MEDS: PANTOPRAZOLE 40MG TAB (PROTONIX) PO SCH (08:30)
[2023-06-09] MEDS: SODIUM BICARBONATE 325 MG TAB PO SCH ×2 (08:30→20:18)
[2023-06-09] MEDS: MAGNESIUM OXIDE 400MG TAB (MAG-OX) PO SCH (08:30)
[2023-06-09] MEDS: TORSEMIDE 20 MG TAB PO SCH ×2 (08:30→16:13)
[2023-06-09] MEDS: ISOSORBIDE MON. (IMDUR) 30MG XR TAB PO SCH ×2 (08:31→20:18)
[2023-06-09] MEDS: METOPROLOL SUCC (TopROL XL) 100MG *XL* TAB PO SCH (08:31)
[2023-06-09] MEDS: TAMSULOSIN 0.4 MG CAP PO SCH (08:31)
[2023-06-09] MEDS: ATORVASTATIN 20 MG TAB PO SCH (08:31)
[2023-06-09 08:34] VITALS: BP 141/84
[2023-06-09] MEDS ORDERED: ONDANSETRON 4MG 2ML VIAL IV PRN (09:05)
[2023-06-09 14:00] VITALS: BP 110/64; TEMP 98.1; O2SAT 95
[2023-06-09 21:06] VITALS: BP 145/86; TEMP 97.7; O2SAT 95
[2023-06-10] MEDS: AMPICILLIN SOD/SULBACTAM SOD 3 GM in D5W MINI-BAG PLUS 100 ML IV SCH ×4 (03:06→20:02)
[2023-06-10] MEDS: NORCO, ANEXSIA 5/325MG TABLET (HYDROcodone/ACETAMINOPHEN) PO PRN (03:09)
[2023-06-10 05:30] VITALS: TEMP 97.9; O2SAT 92
[2023-06-10 05:43] VITALS: BP 180/72
[2023-06-10] MEDS: cloNIDine 0.1MG TABLET PO PRN (05:43)
[2023-06-10 06:49] VITALS: BP 170/94
[2023-06-10] MEDS: SODIUM BICARBONATE 325 MG TAB PO SCH ×2 (08:16→20:02)
[2023-06-10] MEDS: ISOSORBIDE MON. (IMDUR) 30MG XR TAB PO SCH ×2 (08:16→20:03)
[2023-06-10] MEDS: TAMSULOSIN 0.4 MG CAP PO SCH (08:16)
[2023-06-10] MEDS: ATORVASTATIN 20 MG TAB PO SCH (08:16)
[2023-06-10] MEDS: PANTOPRAZOLE 40MG TAB (PROTONIX) PO SCH (08:17)
[2023-06-10] MEDS: METOPROLOL SUCC (TopROL XL) 100MG *XL* TAB PO SCH (08:17)
[2023-06-10] MEDS: ASPIRIN 81MG ENTERIC TABLET PO SCH (08:17)
[2023-06-10 08:18] LABS: BASO % 0.5 % (0.0-1.0); EOS # 0.6 10^3/uL (0.0-0.5); EOS % 7.4 % (0.0-3.0); HEMATOCRIT 29.3 % (42.0-52.0); LYMPH # 1.7 10^3/uL (1.5-5.0); LYMPH % 19.4 % (24.0-44.0); MEAN CORPUSCULAR HEMOGLOBIN 27.4 pg (27.0-33.0); MEAN CORPUSCULAR HGB CONC 30.7 g/dl (32.0-36.5); MEAN CORPUSCULAR VOLUME 89.3 fl (80.0-96.0); NEUTROPHILS # 5.4 10^3/uL (1.5-8.5); NEUTROPHILS % 61.5 % (36.0-66.0); PLATELET COUNT, AUTOMATED 266 10^3/uL (150-450); RED BLOOD COUNT 3.28 10^6/uL (4.30-6.10); WHITE BLOOD COUNT 8.7 10^3/uL (4.0-10.0)
[2023-06-10] MEDS: **hydrALAZINE** 50 MG TAB PO SCH ×3 (08:18→20:03)
[2023-06-10] MEDS: TORSEMIDE 20 MG TAB PO SCH ×2 (08:18→16:29)
[2023-06-10] MEDS: MAGNESIUM OXIDE 400MG TAB (MAG-OX) PO SCH (08:19)
[2023-06-10] MEDS: CLOPIDOGREL 75 MG TAB PO SCH (08:19)
[2023-06-10 08:41] LABS: CALCIUM LEVEL 7.4 MG/DL (8.5-10.1); CREATININE FOR GFR 4.21 MG/DL (0.70-1.30); POTASSIUM SERUM 4.3 MMOL/L (3.5-5.1)
[2023-06-10 14:00] VITALS: BP 156/84; TEMP 97.7; O2SAT 95
[2023-06-10 19:57] VITALS: BP 175/96; TEMP 97.9; O2SAT 93
[2023-06-11 00:12] VITALS: BP 171/96; O2SAT 98
[2023-06-11 00:16] VITALS: BP 168/94
[2023-06-11] MEDS: cloNIDine 0.1MG TABLET PO PRN (01:05)
[2023-06-11 02:31] VITALS: BP 172/90
[2023-06-11] MEDS: AMPICILLIN SOD/SULBACTAM SOD 3 GM in D5W MINI-BAG PLUS 100 ML IV SCH ×2 (03:41→15:49)
[2023-06-11 05:26] VITALS: BP 163/91; TEMP 97.9; O2SAT 95
[2023-06-11 05:40] LABS: BASO # 0.1 10^3/uL (0.0-0.2); BASO % 0.6 % (0.0-1.0); EOS # 0.6 10^3/uL (0.0-0.5); EOS % 6.9 % (0.0-3.0); HEMATOCRIT 29.3 % (42.0-52.0); LYMPH # 1.6 10^3/uL (1.5-5.0); LYMPH % 18.1 % (24.0-44.0); MEAN CORPUSCULAR HEMOGLOBIN 27.4 pg (27.0-33.0); MEAN CORPUSCULAR HGB CONC 30.7 g/dl (32.0-36.5); MEAN CORPUSCULAR VOLUME 89.1 fl (80.0-96.0); MONO # 1.1 10^3/uL (0.0-0.8); MONO % 11.9 % (2.0-8.0); NEUTROPHILS # 5.5 10^3/uL (1.5-8.5); NEUTROPHILS % 62.3 % (36.0-66.0); PLATELET COUNT, AUTOMATED 275 10^3/uL (150-450); RED BLOOD COUNT 3.29 10^6/uL (4.30-6.10); WHITE BLOOD COUNT 8.8 10^3/uL (4.0-10.0)
[2023-06-11 06:02] LABS: CALCIUM LEVEL 7.5 MG/DL (8.5-10.1); CREATININE FOR GFR 4.15 MG/DL (0.70-1.30); GLOMERULAR FILTRATION RATE 16.2 (>56); POTASSIUM SERUM 4.1 MMOL/L (3.5-5.1)
[2023-06-11] MEDS: TAMSULOSIN 0.4 MG CAP PO SCH (10:03)
[2023-06-11] MEDS: ATORVASTATIN 20 MG TAB PO SCH (10:04)
[2023-06-11] MEDS: **hydrALAZINE** 50 MG TAB PO SCH ×3 (10:06→20:25)
[2023-06-11] MEDS: METOPROLOL SUCC (TopROL XL) 100MG *XL* TAB PO SCH (10:06)
[2023-06-11] MEDS: PANTOPRAZOLE 40MG TAB (PROTONIX) PO SCH (10:07)
[2023-06-11] MEDS: MAGNESIUM OXIDE 400MG TAB (MAG-OX) PO SCH (10:07)
[2023-06-11] MEDS: CLOPIDOGREL 75 MG TAB PO SCH (10:07)
[2023-06-11] MEDS: SODIUM BICARBONATE 325 MG TAB PO SCH ×2 (10:07→20:25)
[2023-06-11] MEDS: ASPIRIN 81MG ENTERIC TABLET PO SCH (10:07)
[2023-06-11] MEDS: ISOSORBIDE MON. (IMDUR) 30MG XR TAB PO SCH ×2 (10:07→20:25)
[2023-06-11] MEDS: TORSEMIDE (DEMADEX) 50 MG PER 1/2 TAB PO SCH ×2 (10:11→16:42)
[2023-06-11 14:00] VITALS: BP 165/96; TEMP 97.9; O2SAT 96
[2023-06-11 20:34] VITALS: BP 155/95; TEMP 98.2; O2SAT 95
[2023-06-12] VITALS (7 sets, daily range): BP systolic 148–188; BP diastolic 88–110; TEMP 96.8–98.2; O2SAT 96–98
[2023-06-12] MEDS: FUROSEMIDE 100MG/10ML VIAL IV SCH ×4 (00:49→20:44)
[2023-06-12] MEDS: cloNIDine 0.1MG TABLET PO PRN (01:00)
[2023-06-12] MEDS: AMPICILLIN SOD/SULBACTAM SOD 3 GM in D5W MINI-BAG PLUS 100 ML IV SCH ×2 (03:17→15:33)
[2023-06-12 05:52] LABS: BASO % 0.5 % (0.0-1.0); EOS # 0.6 10^3/uL (0.0-0.5); EOS % 6.7 % (0.0-3.0); HEMATOCRIT 29.1 % (42.0-52.0); HEMOGLOBIN 8.8 g/dl (13.5-17.5); LYMPH # 1.5 10^3/uL (1.5-5.0); LYMPH % 17.8 % (24.0-44.0); MEAN CORPUSCULAR HEMOGLOBIN 26.8 pg (27.0-33.0); MEAN CORPUSCULAR HGB CONC 30.2 g/dl (32.0-36.5); MEAN CORPUSCULAR VOLUME 88.7 fl (80.0-96.0); MONO % 11.7 % (2.0-8.0); NEUTROPHILS # 5.3 10^3/uL (1.5-8.5); NEUTROPHILS % 63.2 % (36.0-66.0); PLATELET COUNT, AUTOMATED 250 10^3/uL (150-450); RED BLOOD COUNT 3.28 10^6/uL (4.30-6.10); WHITE BLOOD COUNT 8.4 10^3/uL (4.0-10.0)
[2023-06-12 06:15] LABS: CALCIUM LEVEL 7.8 MG/DL (8.5-10.1); CREATININE FOR GFR 4.42 MG/DL (0.70-1.30); GLOMERULAR FILTRATION RATE 15.1 (>56)
[2023-06-12] MEDS: TAMSULOSIN 0.4 MG CAP PO SCH (09:22)
[2023-06-12] MEDS: ATORVASTATIN 20 MG TAB PO SCH (09:22)
[2023-06-12] MEDS: SODIUM BICARBONATE 325 MG TAB PO SCH ×2 (09:22→20:43)
[2023-06-12] MEDS: ASPIRIN 81MG ENTERIC TABLET PO SCH (09:22)
[2023-06-12] MEDS: **hydrALAZINE** 50 MG TAB PO SCH ×3 (09:23→20:43)
[2023-06-12] MEDS: MAGNESIUM OXIDE 400MG TAB (MAG-OX) PO SCH (09:23)
[2023-06-12] MEDS: CLOPIDOGREL 75 MG TAB PO SCH (09:23)
[2023-06-12] MEDS: PANTOPRAZOLE 40MG TAB (PROTONIX) PO SCH (09:24)
[2023-06-12] MEDS: ISOSORBIDE MON. (IMDUR) 30MG XR TAB PO SCH ×2 (09:24→20:42)
[2023-06-12] MEDS: METOPROLOL SUCC (TopROL XL) 100MG *XL* TAB PO SCH (09:24)
[2023-06-13] MEDS: AMPICILLIN SOD/SULBACTAM SOD 3 GM in D5W MINI-BAG PLUS 100 ML IV SCH ×2 (02:46→17:34)
[2023-06-13] MEDS: FUROSEMIDE 100MG/10ML VIAL IV SCH ×4 (02:47→21:28)
[2023-06-13 05:22] VITALS: BP 196/99; TEMP 97.7; O2SAT 98
[2023-06-13 06:25] LABS: BASO # 0.1 10^3/uL (0.0-0.2); BASO % 0.7 % (0.0-1.0); EOS # 0.6 10^3/uL (0.0-0.5); EOS % 6.8 % (0.0-3.0); HEMATOCRIT 32.3 % (42.0-52.0); LYMPH # 1.6 10^3/uL (1.5-5.0); LYMPH % 19.9 % (24.0-44.0); MEAN CORPUSCULAR HEMOGLOBIN 27.8 pg (27.0-33.0); MEAN CORPUSCULAR VOLUME 89.7 fl (80.0-96.0); MONO # 1.1 10^3/uL (0.0-0.8); NEUTROPHILS # 4.8 10^3/uL (1.5-8.5); NEUTROPHILS % 59.5 % (36.0-66.0); PLATELET COUNT, AUTOMATED 284 10^3/uL (150-450); WHITE BLOOD COUNT 8.1 10^3/uL (4.0-10.0)
[2023-06-13 06:52] LABS: CREATININE FOR GFR 4.25 MG/DL (0.70-1.30); GLOMERULAR FILTRATION RATE 15.8 (>56); POTASSIUM SERUM 3.7 MMOL/L (3.5-5.1)
[2023-06-13] MEDS: ATORVASTATIN 20 MG TAB PO SCH (09:47)
[2023-06-13] MEDS: TAMSULOSIN 0.4 MG CAP PO SCH (09:48)
[2023-06-13] MEDS: ISOSORBIDE MON. (IMDUR) 30MG XR TAB PO SCH ×2 (09:48→21:29)
[2023-06-13] MEDS: ASPIRIN 81MG ENTERIC TABLET PO SCH (09:48)
[2023-06-13] MEDS: SODIUM BICARBONATE 325 MG TAB PO SCH ×2 (09:48→21:29)
[2023-06-13] MEDS: CLOPIDOGREL 75 MG TAB PO SCH (09:48)
[2023-06-13] MEDS: MAGNESIUM OXIDE 400MG TAB (MAG-OX) PO SCH (09:48)
[2023-06-13] MEDS: PANTOPRAZOLE 40MG TAB (PROTONIX) PO SCH (09:48)
[2023-06-13] MEDS: METOPROLOL SUCC (TopROL XL) 100MG *XL* TAB PO SCH (09:49)
[2023-06-13] MEDS: **hydrALAZINE** 50 MG TAB PO SCH ×3 (09:49→21:29)
[2023-06-13 14:00] VITALS: BP 165/95; TEMP 97.9; O2SAT 99
[2023-06-13] MEDS ORDERED: ACETAMINOPHEN TAB 650MG DOSE (2X325MG) PO PRN (17:35)
[2023-06-13 19:25] VITALS: BP 165/95; TEMP 98.2; O2SAT 92
[2023-06-14] MEDS: AMPICILLIN SOD/SULBACTAM SOD 3 GM in D5W MINI-BAG PLUS 100 ML IV SCH (02:09)
[2023-06-14] MEDS: FUROSEMIDE 100MG/10ML VIAL IV SCH ×4 (02:10→21:44)
[2023-06-14 04:28] VITALS: BP 169/95; TEMP 97.2; O2SAT 97
[2023-06-14] MEDS: cloNIDine 0.1MG TABLET PO PRN (04:39)
[2023-06-14 07:05] LABS: BASO # 0.1 10^3/uL (0.0-0.2); BASO % 0.8 % (0.0-1.0); EOS # 0.8 10^3/uL (0.0-0.5); EOS % 9.8 % (0.0-3.0); HEMATOCRIT 32.4 % (42.0-52.0); HEMOGLOBIN 10.1 g/dl (13.5-17.5); LYMPH # 1.7 10^3/uL (1.5-5.0); LYMPH % 20.8 % (24.0-44.0); MEAN CORPUSCULAR HEMOGLOBIN 27.8 pg (27.0-33.0); MEAN CORPUSCULAR HGB CONC 31.2 g/dl (32.0-36.5); MEAN CORPUSCULAR VOLUME 89.3 fl (80.0-96.0); MONO # 0.9 10^3/uL (0.0-0.8); NEUTROPHILS # 4.6 10^3/uL (1.5-8.5); NEUTROPHILS % 57.5 % (36.0-66.0); PLATELET COUNT, AUTOMATED 268 10^3/uL (150-450); RED BLOOD COUNT 3.63 10^6/uL (4.30-6.10)
[2023-06-14 07:26] LABS: CALCIUM LEVEL 8.1 MG/DL (8.5-10.1); CREATININE FOR GFR 4.27 MG/DL (0.70-1.30); GLOMERULAR FILTRATION RATE 15.7 (>56); POTASSIUM SERUM 3.4 MMOL/L (3.5-5.1)
[2023-06-14 07:45] VITALS: BP 170/95; TEMP 97.5; O2SAT 95
[2023-06-14] MEDS: POTASSIUM CHLORIDE 10MEQ SR TABLET PO SCH ×2 (09:00→21:45)
[2023-06-14] MEDS ORDERED: POTASSIUM CHLORIDE 10MEQ SR TABLET PO ONE (09:00)
[2023-06-14] MEDS: SODIUM BICARBONATE 325 MG TAB PO SCH ×2 (10:49→21:46)
[2023-06-14] MEDS: ATORVASTATIN 20 MG TAB PO SCH (10:50)
[2023-06-14] MEDS: TAMSULOSIN 0.4 MG CAP PO SCH (10:50)
[2023-06-14] MEDS: ASPIRIN 81MG ENTERIC TABLET PO SCH (10:50)
[2023-06-14] MEDS: METOPROLOL SUCC (TopROL XL) 100MG *XL* TAB PO SCH (10:51)
[2023-06-14] MEDS: **hydrALAZINE** 50 MG TAB PO SCH ×3 (10:52→21:46)
[2023-06-14] MEDS: ISOSORBIDE MON. (IMDUR) 30MG XR TAB PO SCH ×2 (10:52→21:45)
[2023-06-14] MEDS: PANTOPRAZOLE 40MG TAB (PROTONIX) PO SCH (10:52)
[2023-06-14] MEDS: MAGNESIUM OXIDE 400MG TAB (MAG-OX) PO SCH (10:53)
[2023-06-14] MEDS: CLOPIDOGREL 75 MG TAB PO SCH (10:53)
[2023-06-14 11:28] LABS: HEMOGLOBIN A1c 5.6 % (4.0-6.0)
[2023-06-14] MEDS ORDERED: INSULIN LISPRO (NovoLOG) PER UNIT SC SCH (12:00)
[2023-06-14] MEDS: INSULIN LISPRO (NovoLOG) PER UNIT SC SCH ×2 (12:14→17:30)
[2023-06-14 14:00] VITALS: BP_SYST 159; BP_DIAS 90; BP_DIAS 96; TEMP 97.5; O2SAT 92; O2SAT 96
[2023-06-14 19:40] VITALS: BP 161/93; TEMP 98.1; O2SAT 95
[2023-06-15] MEDS: FUROSEMIDE 100MG/10ML VIAL IV SCH ×3 (03:43→17:47)
[2023-06-15 05:26] VITALS: BP 166/95; TEMP 97.7; O2SAT 97
[2023-06-15 06:53] LABS: BASO # 0.1 10^3/uL (0.0-0.2); BASO % 0.7 % (0.0-1.0); EOS # 0.8 10^3/uL (0.0-0.5); EOS % 8.5 % (0.0-3.0); HEMATOCRIT 33.2 % (42.0-52.0); HEMOGLOBIN 10.4 g/dl (13.5-17.5); LYMPH % 21.8 % (24.0-44.0); MEAN CORPUSCULAR HEMOGLOBIN 27.5 pg (27.0-33.0); MEAN CORPUSCULAR HGB CONC 31.3 g/dl (32.0-36.5); MEAN CORPUSCULAR VOLUME 87.8 fl (80.0-96.0); MONO # 1.2 10^3/uL (0.0-0.8); MONO % 13.4 % (2.0-8.0); NEUTROPHILS # 4.9 10^3/uL (1.5-8.5); NEUTROPHILS % 55.4 % (36.0-66.0); PLATELET COUNT, AUTOMATED 276 10^3/uL (150-450); RED BLOOD COUNT 3.78 10^6/uL (4.30-6.10); WHITE BLOOD COUNT 8.9 10^3/uL (4.0-10.0)
[2023-06-15 07:17] LABS: CALCIUM LEVEL 8.2 MG/DL (8.5-10.1); CREATININE FOR GFR 4.21 MG/DL (0.70-1.30); POTASSIUM SERUM 3.7 MMOL/L (3.5-5.1)
[2023-06-15] MEDS: INSULIN LISPRO (NovoLOG) PER UNIT SC SCH ×3 (07:28→17:19)
[2023-06-15] MEDS: TAMSULOSIN 0.4 MG CAP PO SCH (09:34)
[2023-06-15] MEDS: POTASSIUM CHLORIDE 10MEQ SR TABLET PO SCH ×2 (09:34→21:35)
[2023-06-15] MEDS: ISOSORBIDE MON. (IMDUR) 30MG XR TAB PO SCH ×2 (09:34→21:35)
[2023-06-15] MEDS: PANTOPRAZOLE 40MG TAB (PROTONIX) PO SCH (09:34)
[2023-06-15] MEDS: ATORVASTATIN 20 MG TAB PO SCH (09:34)
[2023-06-15] MEDS: METOPROLOL SUCC (TopROL XL) 100MG *XL* TAB PO SCH (09:35)
[2023-06-15] MEDS: SODIUM BICARBONATE 325 MG TAB PO SCH ×2 (09:35→21:34)
[2023-06-15] MEDS: **hydrALAZINE** 50 MG TAB PO SCH ×4 (09:35→21:39)
[2023-06-15] MEDS: MAGNESIUM OXIDE 400MG TAB (MAG-OX) PO SCH (09:36)
[2023-06-15] MEDS: CLOPIDOGREL 75 MG TAB PO SCH (09:36)
[2023-06-15] MEDS: ASPIRIN 81MG ENTERIC TABLET PO SCH (09:36)
[2023-06-15 14:00] VITALS: BP 127/62; TEMP 97.9; O2SAT 94
[2023-06-16] MEDS: FUROSEMIDE 100MG/10ML VIAL IV SCH ×2 (00:46→09:13)
[2023-06-16 06:00] VITALS: BP 166/97; TEMP 97.9; O2SAT 95
[2023-06-16 06:30] LABS: BASO # 0.1 10^3/uL (0.0-0.2); BASO % 0.8 % (0.0-1.0); EOS # 0.6 10^3/uL (0.0-0.5); HEMATOCRIT 34.2 % (42.0-52.0); HEMOGLOBIN 10.7 g/dl (13.5-17.5); LYMPH # 1.9 10^3/uL (1.5-5.0); LYMPH % 20.8 % (24.0-44.0); MEAN CORPUSCULAR HEMOGLOBIN 27.4 pg (27.0-33.0); MEAN CORPUSCULAR HGB CONC 31.3 g/dl (32.0-36.5); MEAN CORPUSCULAR VOLUME 87.5 fl (80.0-96.0); MONO # 1.2 10^3/uL (0.0-0.8); MONO % 13.3 % (2.0-8.0); NEUTROPHILS # 5.1 10^3/uL (1.5-8.5); NEUTROPHILS % 57.9 % (36.0-66.0); PLATELET COUNT, AUTOMATED 267 10^3/uL (150-450); RED BLOOD COUNT 3.91 10^6/uL (4.30-6.10); WHITE BLOOD COUNT 8.9 10^3/uL (4.0-10.0)
[2023-06-16 06:56] LABS: CALCIUM LEVEL 8.4 MG/DL (8.5-10.1); CREATININE FOR GFR 4.06 MG/DL (0.70-1.30); GLOMERULAR FILTRATION RATE 16.6 (>56); POTASSIUM SERUM 3.6 MMOL/L (3.5-5.1)
[2023-06-16] MEDS: INSULIN LISPRO (NovoLOG) PER UNIT SC SCH ×4 (07:30→21:06)
[2023-06-16 08:15] VITALS: BP 167/99; TEMP 97.7; O2SAT 95
[2023-06-16] MEDS: ATORVASTATIN 20 MG TAB PO SCH (09:07)
[2023-06-16] MEDS: POTASSIUM CHLORIDE 10MEQ SR TABLET PO SCH ×2 (09:08→21:32)
[2023-06-16] MEDS: **hydrALAZINE** 50 MG TAB PO SCH ×3 (09:09→21:31)
[2023-06-16] MEDS: TAMSULOSIN 0.4 MG CAP PO SCH (09:10)
[2023-06-16] MEDS: SODIUM BICARBONATE 325 MG TAB PO SCH ×2 (09:11→21:31)
[2023-06-16] MEDS: ASPIRIN 81MG ENTERIC TABLET PO SCH (09:11)
[2023-06-16] MEDS: ISOSORBIDE MON. (IMDUR) 30MG XR TAB PO SCH ×2 (09:11→21:31)
[2023-06-16] MEDS: PANTOPRAZOLE 40MG TAB (PROTONIX) PO SCH (09:12)
[2023-06-16] MEDS: METOPROLOL SUCC (TopROL XL) 100MG *XL* TAB PO SCH (09:12)
[2023-06-16] MEDS: CLOPIDOGREL 75 MG TAB PO SCH (09:12)
[2023-06-16] MEDS: MAGNESIUM OXIDE 400MG TAB (MAG-OX) PO SCH (09:13)
[2023-06-16 14:42] VITALS: BP 160/91; TEMP 97.5; O2SAT 95
[2023-06-16 20:00] VITALS: BP 151/80; TEMP 97.9; O2SAT 95
[2023-06-17 06:00] VITALS: BP 166/93; TEMP 97.9; O2SAT 96
[2023-06-17 06:12] LABS: BASO # 0.1 10^3/uL (0.0-0.2); BASO % 0.9 % (0.0-1.0); EOS # 0.4 10^3/uL (0.0-0.5); EOS % 5.1 % (0.0-3.0); HEMATOCRIT 33.3 % (42.0-52.0); HEMOGLOBIN 10.5 g/dl (13.5-17.5); LYMPH # 1.8 10^3/uL (1.5-5.0); LYMPH % 21.1 % (24.0-44.0); MEAN CORPUSCULAR HEMOGLOBIN 27.7 pg (27.0-33.0); MEAN CORPUSCULAR HGB CONC 31.5 g/dl (32.0-36.5); MEAN CORPUSCULAR VOLUME 87.9 fl (80.0-96.0); MONO # 1.1 10^3/uL (0.0-0.8); MONO % 13.3 % (2.0-8.0); NEUTROPHILS % 59.4 % (36.0-66.0); RED BLOOD COUNT 3.79 10^6/uL (4.30-6.10); WHITE BLOOD COUNT 8.5 10^3/uL (4.0-10.0)
[2023-06-17 06:33] LABS: CALCIUM LEVEL 8.3 MG/DL (8.5-10.1); CREATININE FOR GFR 3.91 MG/DL (0.70-1.30); GLOMERULAR FILTRATION RATE 17.4 (>56); POTASSIUM SERUM 3.7 MMOL/L (3.5-5.1)
[2023-06-17 06:41] LABS: PLATELET COUNT, AUTOMATED 267 10^3/uL (150-450)
[2023-06-17] MEDS: ASPIRIN 81MG ENTERIC TABLET PO SCH (08:05)
[2023-06-17] MEDS: SODIUM BICARBONATE 325 MG TAB PO SCH ×2 (08:05→21:47)
[2023-06-17] MEDS: TAMSULOSIN 0.4 MG CAP PO SCH (08:05)
[2023-06-17] MEDS: PANTOPRAZOLE 40MG TAB (PROTONIX) PO SCH (08:05)
[2023-06-17] MEDS: ATORVASTATIN 20 MG TAB PO SCH (08:06)
[2023-06-17] MEDS: POTASSIUM CHLORIDE 10MEQ SR TABLET PO SCH ×2 (08:06→21:47)
[2023-06-17] MEDS: METOPROLOL SUCC (TopROL XL) 100MG *XL* TAB PO SCH (08:06)
[2023-06-17] MEDS: **hydrALAZINE** 50 MG TAB PO SCH ×3 (08:06→21:49)
[2023-06-17] MEDS: ISOSORBIDE MON. (IMDUR) 30MG XR TAB PO SCH ×2 (08:07→21:49)
[2023-06-17] MEDS: MAGNESIUM OXIDE 400MG TAB (MAG-OX) PO SCH (08:07)
[2023-06-17] MEDS: CLOPIDOGREL 75 MG TAB PO SCH (08:07)
[2023-06-17] MEDS: TORSEMIDE (DEMADEX) 50 MG PER 1/2 TAB PO SCH (08:11)
[2023-06-17] MEDS: INSULIN LISPRO (NovoLOG) PER UNIT SC SCH ×2 (11:52→17:06)
[2023-06-17 14:00] VITALS: BP 165/93; TEMP 97.5; O2SAT 95
[2023-06-17 21:20] VITALS: BP 164/93; TEMP 98.4; O2SAT 97
[2023-06-18 05:50] VITALS: BP 164/93; TEMP 97.7; O2SAT 96
[2023-06-18] MEDS ORDERED: POTA-136 PO (07:05)
[2023-06-18] MEDS ORDERED: TORS100T PO (07:05)
[2023-06-18] MEDS: INSULIN LISPRO (NovoLOG) PER UNIT SC SCH (07:27)
[2023-06-18] MEDS: POTASSIUM CHLORIDE 10MEQ SR TABLET PO SCH (08:16)
[2023-06-18 08:17] VITALS: BP 164/93
[2023-06-18] MEDS: **hydrALAZINE** 50 MG TAB PO SCH (08:17)
[2023-06-18] MEDS: TAMSULOSIN 0.4 MG CAP PO SCH (08:17)
[2023-06-18] MEDS: PANTOPRAZOLE 40MG TAB (PROTONIX) PO SCH (08:17)
[2023-06-18] MEDS: CLOPIDOGREL 75 MG TAB PO SCH (08:17)
[2023-06-18] MEDS: ISOSORBIDE MON. (IMDUR) 30MG XR TAB PO SCH (08:17)
[2023-06-18] MEDS: ASPIRIN 81MG ENTERIC TABLET PO SCH (08:18)
[2023-06-18] MEDS: ATORVASTATIN 20 MG TAB PO SCH (08:18)
[2023-06-18] MEDS: METOPROLOL SUCC (TopROL XL) 100MG *XL* TAB PO SCH (08:18)
[2023-06-18] MEDS: SODIUM BICARBONATE 325 MG TAB PO SCH (08:18)
[2023-06-18] MEDS: TORSEMIDE (DEMADEX) 50 MG PER 1/2 TAB PO SCH (08:18)
[2023-06-18] MEDS: MAGNESIUM OXIDE 400MG TAB (MAG-OX) PO SCH (08:20)
== END 2023-06-18 10:48 | DRG 349 ==
LOC: M ED 15:27 → M ED INP 15:28 → ENRESERV 06-08 04:01 → M MSPAV 06-08 04:48 → OBSVTOIN 06-12 08:42
PROVIDERS: ADMIT Internal Medicine; ATTEND Internal Medicine Nephrology
DX: T87.89 Other complications of amputation stump (principal); I13.2 Hypertensive heart and chronic kidney disease with heart failure and with stage 5 chronic kidney disease, or end stage renal disease; N17.9 Acute kidney failure, unspecified; E87.20 Acidosis, unspecified; N18.5 Chronic kidney disease, stage 5; E11.22 Type 2 diabetes mellitus with diabetic chronic kidney disease; D62 Acute posthemorrhagic anemia; E11.42 Type 2 diabetes mellitus with diabetic polyneuropathy; E11.51 Type 2 diabetes mellitus with diabetic peripheral angiopathy without gangrene; I27.20 Pulmonary hypertension, unspecified; I50.22 Chronic systolic (congestive) heart failure; E11.319 Type 2 diabetes mellitus with unspecified diabetic retinopathy without macular edema; E87.70 Fluid overload, unspecified; I48.91 Unspecified atrial fibrillation; E66.9 Obesity, unspecified; E78.5 Hyperlipidemia, unspecified; I25.10 Atherosclerotic heart disease of native coronary artery without angina pectoris; N40.0 Benign prostatic hyperplasia without lower urinary tract symptoms; Z89.511 Acquired absence of right leg below knee; Z95.2 Presence of prosthetic heart valve; Z95.1 Presence of aortocoronary bypass graft; I25.2 Old myocardial infarction; Z79.4 Long term (current) use of insulin; Z79.899 Other long term (current) drug therapy; Z79.82 Long term (current) use of aspirin; Z68.35 Body mass index [BMI] 35.0-35.9, adult; E87.6 Hypokalemia; Y83.5 Amputation of limb(s) as the cause of abnormal reaction of the patient, or of later complication, without mention of misadventure at the time of the procedure

== ENCOUNTER 2023-10-12 19:25 | Inpatient (IN) | payer BC, MEDICAID ==
[~2023-10-12] VITALS: Ht 182.9 cm; Wt 107.0 kg
[~2023-10-12 19:25] MED LIST changes: -ASPI-161 PO; +ASPI-615 PO; -HYDR-3910 PO; -HYDR-3911 PO; -HYDR25TA PO; +HYDR25TA87 PO; +HYDR25TA88 PO; -HYDR50TA PO; +HYDR50TA46 PO; +HYDR50TA47 PO; +MED HIST COMMENT; +POTA-136 PO
[2023-10-12 20:41] LABS: BASO # 0.1 10^3/uL (0.0-0.2); BASO % 0.4 % (0.0-1.0); EOS # 0.2 10^3/uL (0.0-0.5); EOS % 1.7 % (0.0-3.0); HEMATOCRIT 36.8 % (42.0-52.0); HEMOGLOBIN 11.7 g/dl (13.5-17.5); LYMPH # 1.2 10^3/uL (1.5-5.0); LYMPH % 9.7 % (24.0-44.0); MEAN CORPUSCULAR HEMOGLOBIN 28.4 pg (27.0-33.0); MEAN CORPUSCULAR HGB CONC 31.8 g/dl (32.0-36.5); MEAN CORPUSCULAR VOLUME 89.3 fl (80.0-96.0); MONO # 0.9 10^3/uL (0.0-0.8); MONO % 7.2 % (2.0-8.0); NEUTROPHILS # 9.7 10^3/uL (1.5-8.5); NEUTROPHILS % 80.8 % (36.0-66.0); PLATELET COUNT, AUTOMATED 296 10^3/uL (150-450); RED BLOOD COUNT 4.12 10^6/uL (4.30-6.10)
[2023-10-12 21:04] LABS: CALCIUM LEVEL 7.6 MG/DL (8.5-10.1); CK-MB VALUE MASS 9.2 NG/ML (<3.6); CREATININE FOR GFR 5.24 MG/DL (0.70-1.30); GLOMERULAR FILTRATION RATE 12.4 (>56); POTASSIUM SERUM 3.8 MMOL/L (3.5-5.1)
[2023-10-12 21:08] LABS: MB/CK RELATIVE INDEX 2.09 (< OR =4)
[2023-10-12] MEDS: FUROSEMIDE 100MG/10ML VIAL IV ONE (22:06)
[2023-10-12 22:44] LABS: CK-MB VALUE MASS 9.7 NG/ML (<3.6)
[2023-10-12 22:47] LABS: MB/CK RELATIVE INDEX 2.27 (< OR =4)
[2023-10-13] VITALS (7 sets, daily range): BP systolic 126–202; BP diastolic 52–120; TEMP 96.4–97.6; O2SAT 91–96
[2023-10-13] MEDS: cloNIDine 0.1MG TABLET PO ONE (00:42)
[2023-10-13] MEDS ORDERED: TOUJ1.2I SC (01:41)
[2023-10-13] MEDS ORDERED: HOME MED LIST COMPLETE! XX SCH (01:45)
[2023-10-13] MEDS ORDERED: GLUCAGON INJ 1MG VIAL SC PRN (02:35)
[2023-10-13] MEDS ORDERED: DEXTROSE 50% 50ML SYRINGE IV PRN (02:35)
[2023-10-13] MEDS ORDERED: cloNIDine 0.1MG TABLET PO PRN (02:35)
[2023-10-13] MEDS ORDERED: GLUCOSE 4GM CHEW TABLET PO PRN (02:35)
[2023-10-13] MEDS: hydrALAZINE 20MG/ML 1ML VIAL IV PRN (03:41)
[2023-10-13] MEDS: HEPARIN SOD (PORCINE) 5000UNITS/ML 1ML VIAL/SYRINGE SQ SCH (06:21)
[2023-10-13] MEDS: ACETAMINOPHEN TAB 650MG DOSE (2X325MG) PO PRN (06:22)
[2023-10-13] MEDS: cloNIDine 0.1MG TABLET PO SCH (06:22)
[2023-10-13 07:41] LABS: HEMATOCRIT 34.4 % (42.0-52.0); MEAN CORPUSCULAR HEMOGLOBIN 28.4 pg (27.0-33.0); MEAN CORPUSCULAR VOLUME 88.7 fl (80.0-96.0); PLATELET COUNT, AUTOMATED 278 10^3/uL (150-450); RED BLOOD COUNT 3.88 10^6/uL (4.30-6.10); WHITE BLOOD COUNT 11.3 10^3/uL (4.0-10.0)
[2023-10-13 08:08] LABS: CALCIUM LEVEL 7.3 MG/DL (8.5-10.1); CREATININE FOR GFR 5.5 MG/DL (0.70-1.30); GLOMERULAR FILTRATION RATE 11.7 (>56); POTASSIUM SERUM 3.7 MMOL/L (3.5-5.1)
[2023-10-13] MEDS ORDERED: TORSEMIDE 100 MG TAB PO SCH (09:00)
[2023-10-13] MEDS: FUROSEMIDE 40MG/4ML VIAL IV SCH (09:32)
[2023-10-13] MEDS: **hydrALAZINE** 50 MG TAB PO SCH (09:32)
[2023-10-13] MEDS: ISOSORBIDE MON. (IMDUR) 30MG XR TAB PO SCH (09:33)
[2023-10-13] MEDS: CLOPIDOGREL 75 MG TAB PO SCH (09:33)
[2023-10-13] MEDS: POTASSIUM CHLORIDE 10MEQ SR TABLET PO SCH (09:33)
[2023-10-13] MEDS: METOPROLOL SUCC (TopROL XL) 100MG *XL* TAB PO SCH (09:33)
[2023-10-13] MEDS: PANTOPRAZOLE 40MG TAB (PROTONIX) PO SCH (09:33)
[2023-10-13] MEDS: INSULIN LISPRO (NovoLOG) PER UNIT SC SCH ×2 (09:34→21:00)
[2023-10-13] MEDS: ATORVASTATIN 20 MG TAB PO SCH (09:34)
[2023-10-13] MEDS: LEVEMIR (INSULIN DETEMIR) 1 UNITS/0.01ML SC SCH (09:35)
[2023-10-13 10:40] LABS: C REACTIVE PROTEIN QUANTITATIV 7.2 MG/DL (<1.0)
[2023-10-13] MEDS: FUROSEMIDE 100MG/10ML VIAL IV SCH (17:22)
[2023-10-13 17:42] LABS: APPEARANCE, URINE HAZY (CLEAR); BACTERIA, URINE AUTO 1+ (NEGATIVE); BILIRUBIN, URINE AUTO NEGATIVE (NEGATIVE); BLOOD, URINE BLOOD 1+ (NEGATIVE); COLOR, URINE YELLOW (YELLOW); GLUCOSE, URINE (UA) AUTO 2+ mg/dL (NEGATIVE); KETONE, URINE AUTO NEGATIVE (NEGATIVE); LEUKOCYTE ESTERASE, URINE AUTO NEGATIVE (NEGATIVE); NITRITE, URINE AUTO NEGATIVE (NEGATIVE); PROTEIN, URINE AUTO 3+ mg/dL (NEGATIVE); RBC, URINE AUTO 3 /HPF (0-3); SPECIFIC GRAVITY URINE AUTO 1.015 (1.002-1.035); SQUAMOUS EPITHELIAL CELL UR AU 0 /HPF (0-6); UROBILINOGEN, URINE AUTO 0.2 mg/dL (0.0-2.0); WBC, URINE AUTO 2 /HPF (0-3)
[2023-10-14] VITALS (10 sets, daily range): BP systolic 105–150; BP diastolic 60–87; TEMP 96.7–97.6; O2SAT 91–97
[2023-10-14 06:56] LABS: BASO # 0.1 10^3/uL (0.0-0.2); BASO % 0.8 % (0.0-1.0); EOS # 0.5 10^3/uL (0.0-0.5); EOS % 5.3 % (0.0-3.0); HEMATOCRIT 33.7 % (42.0-52.0); HEMOGLOBIN 10.5 g/dl (13.5-17.5); LYMPH # 1.3 10^3/uL (1.5-5.0); LYMPH % 14.8 % (24.0-44.0); MEAN CORPUSCULAR HEMOGLOBIN 27.6 pg (27.0-33.0); MEAN CORPUSCULAR HGB CONC 31.2 g/dl (32.0-36.5); MEAN CORPUSCULAR VOLUME 88.5 fl (80.0-96.0); MONO % 11.5 % (2.0-8.0); NEUTROPHILS # 5.7 10^3/uL (1.5-8.5); NEUTROPHILS % 67.5 % (36.0-66.0); PLATELET COUNT, AUTOMATED 299 10^3/uL (150-450); RED BLOOD COUNT 3.81 10^6/uL (4.30-6.10); WHITE BLOOD COUNT 8.5 10^3/uL (4.0-10.0)
[2023-10-14 07:14] LABS: CALCIUM LEVEL 7.5 MG/DL (8.5-10.1); CREATININE FOR GFR 5.94 MG/DL (0.70-1.30); GLOMERULAR FILTRATION RATE 10.7 (>56); MAGNESIUM LEVEL 2.1 MG/DL (1.8-2.4); PERCENT SATURATION 8.5 % (19.7-50.0); POTASSIUM SERUM 3.9 MMOL/L (3.5-5.1); PTH INTACT 449.9 PG/ML (18.5-88.0)
[2023-10-14 07:16] LABS: FERRITIN 66.4 NG/ML (10.5-307.3); TOTAL 25(OH) VITAMIN D 13.7 NG/ML (20.0-100.0)
[2023-10-14 07:45] LABS: PHOSPHORUS LEVEL 6.3 MG/DL (2.5-4.9)
[2023-10-14] MEDS: (RENVELA) SEVELAMER **CARBONate** 800 MG TAB PO SCH (13:24)
[2023-10-14] MEDS: CALCITRIOL 0.25 MCG CAP (S0169) PO SCH (13:24)
[2023-10-14] MEDS: FERRIC CARBOXYMALTOSE INJ 750 MG, VIAL MATE ADAPTER 1 EACH in NS 250 ML IV ONE (14:10)
[2023-10-14] MEDS: LEVEMIR (INSULIN DETEMIR) 1 UNITS/0.01ML SC SCH (21:30)
[2023-10-15 03:38] VITALS: BP 128/75; TEMP 97.7; O2SAT 95
[2023-10-15 05:00] LABS: BASO # 0.1 10^3/uL (0.0-0.2); BASO % 0.6 % (0.0-1.0); EOS # 0.4 10^3/uL (0.0-0.5); EOS % 3.4 % (0.0-3.0); HEMATOCRIT 32.6 % (42.0-52.0); HEMOGLOBIN 10.2 g/dl (13.5-17.5); LYMPH # 1.2 10^3/uL (1.5-5.0); LYMPH % 11.1 % (24.0-44.0); MEAN CORPUSCULAR HEMOGLOBIN 28.3 pg (27.0-33.0); MEAN CORPUSCULAR HGB CONC 31.3 g/dl (32.0-36.5); MEAN CORPUSCULAR VOLUME 90.3 fl (80.0-96.0); MONO % 9.8 % (2.0-8.0); NEUTROPHILS # 7.9 10^3/uL (1.5-8.5); NEUTROPHILS % 74.8 % (36.0-66.0); PLATELET COUNT, AUTOMATED 303 10^3/uL (150-450); RED BLOOD COUNT 3.61 10^6/uL (4.30-6.10); WHITE BLOOD COUNT 10.6 10^3/uL (4.0-10.0)
[2023-10-15 05:26] LABS: CALCIUM LEVEL 7.2 MG/DL (8.5-10.1); CREATININE FOR GFR 6.33 MG/DL (0.70-1.30); POTASSIUM SERUM 4.1 MMOL/L (3.5-5.1)
[2023-10-15 08:12] VITALS: BP 121/71; TEMP 97.8; O2SAT 93
[2023-10-15] MEDS ORDERED: HEPARIN 1,000UNITS/ML 10ML VIAL (FOR RADIOLOGY & DIALYSIS ONLY) IV PRN (09:10)
[2023-10-15] MEDS ORDERED: HEPARIN 1,000UNITS/ML 10ML VIAL (FOR RADIOLOGY & DIALYSIS ONLY) XX SCH (09:10)
[2023-10-15] MEDS ORDERED: SODIUM CHLORIDE 0.9% 1000ML IV PRN (09:10)
[2023-10-15 11:08] LABS: HEPATITIS B SURFACE ANTIBODY NEGATIVE (POSITIVE)
[2023-10-15 11:40] LABS: HEPATITIS B CORE ANTIBODY IGM NEGATIVE (NEGATIVE); HEPATITIS C VIRUS ABY INDEX 0.03 INDEX (<0.8)
[2023-10-15 13:44] VITALS: BP 122/68; TEMP 97.1; O2SAT 92
[2023-10-15 16:00] VITALS: BP 110/61; TEMP 96.8; O2SAT 90
[2023-10-15] MEDS: **hydrALAZINE** 50 MG TAB PO SCH (16:00)
[2023-10-15 20:09] VITALS: BP 122/65; TEMP 97.8; O2SAT 94
[2023-10-15] MEDS: HEPARIN SOD (PORCINE) 5000UNITS/ML 1ML VIAL/SYRINGE SQ SCH (20:14)
[2023-10-16] VITALS: BP 129/75; TEMP 97.8; O2SAT 93
[2023-10-16 04:00] VITALS: BP 131/78; TEMP 97.6; O2SAT 91
[2023-10-16] MEDS ORDERED: SODIUM CHLORIDE 0.9% 1000ML IV PRN (06:00)
[2023-10-16] MEDS ORDERED: HEPARIN 1,000UNITS/ML 10ML VIAL (FOR RADIOLOGY & DIALYSIS ONLY) IV PRN (06:00)
[2023-10-16] MEDS ORDERED: HEPARIN 1,000UNITS/ML 10ML VIAL (FOR RADIOLOGY & DIALYSIS ONLY) XX SCH (06:00)
[2023-10-16 06:22] LABS: BASO # 0.1 10^3/uL (0.0-0.2); BASO % 0.5 % (0.0-1.0); EOS # 0.3 10^3/uL (0.0-0.5); HEMATOCRIT 33.8 % (42.0-52.0); HEMOGLOBIN 10.5 g/dl (13.5-17.5); LYMPH % 10.3 % (24.0-44.0); MEAN CORPUSCULAR HGB CONC 31.1 g/dl (32.0-36.5); MEAN CORPUSCULAR VOLUME 90.1 fl (80.0-96.0); MONO # 1.3 10^3/uL (0.0-0.8); MONO % 12.6 % (2.0-8.0); NEUTROPHILS # 7.3 10^3/uL (1.5-8.5); NEUTROPHILS % 73.4 % (36.0-66.0); PLATELET COUNT, AUTOMATED 295 10^3/uL (150-450); RED BLOOD COUNT 3.75 10^6/uL (4.30-6.10)
[2023-10-16 06:44] LABS: CALCIUM LEVEL 7.2 MG/DL (8.5-10.1); CREATININE FOR GFR 5.99 MG/DL (0.70-1.30); GLOMERULAR FILTRATION RATE 10.6 (>56)
[2023-10-16 08:00] VITALS: BP 130/74; TEMP 98.1; O2SAT 93
[2023-10-16 11:40] VITALS: BP 130/79; TEMP 97.8; O2SAT 95
[2023-10-16] MEDS: CLOPIDOGREL 75 MG TAB PO SCH (12:05)
[2023-10-16] MEDS: METOPROLOL SUCC (TopROL XL) 100MG *XL* TAB PO SCH (12:05)
[2023-10-16 16:00] VITALS: BP 123/69; TEMP 98.7; O2SAT 94
[2023-10-16 20:15] VITALS: BP 119/79; TEMP 98.4; O2SAT 95
[2023-10-17] VITALS (7 sets, daily range): BP systolic 113–153; BP diastolic 58–84; TEMP 97.5–98.5; O2SAT 90–97
[2023-10-17 05:32] LABS: BASO # 0.1 10^3/uL (0.0-0.2); BASO % 0.6 % (0.0-1.0); EOS # 0.3 10^3/uL (0.0-0.5); EOS % 2.7 % (0.0-3.0); HEMATOCRIT 33.6 % (42.0-52.0); HEMOGLOBIN 10.6 g/dl (13.5-17.5); LYMPH # 1.6 10^3/uL (1.5-5.0); LYMPH % 15.1 % (24.0-44.0); MEAN CORPUSCULAR HEMOGLOBIN 28.6 pg (27.0-33.0); MEAN CORPUSCULAR HGB CONC 31.5 g/dl (32.0-36.5); MEAN CORPUSCULAR VOLUME 90.6 fl (80.0-96.0); MONO # 1.4 10^3/uL (0.0-0.8); MONO % 13.2 % (2.0-8.0); NEUTROPHILS # 7.2 10^3/uL (1.5-8.5); PLATELET COUNT, AUTOMATED 268 10^3/uL (150-450); RED BLOOD COUNT 3.71 10^6/uL (4.30-6.10); WHITE BLOOD COUNT 10.6 10^3/uL (4.0-10.0)
[2023-10-17 05:53] LABS: ALBUMIN 1.7 G/DL (3.2-5.2); BILIRUBIN,TOTAL 0.2 MG/DL (0.3-1.2); CREATININE FOR GFR 5.61 MG/DL (0.70-1.30); GLOMERULAR FILTRATION RATE 11.5 (>56); MAGNESIUM LEVEL 1.8 MG/DL (1.8-2.4); POTASSIUM SERUM 4.4 MMOL/L (3.5-5.1); TOTAL PROTEIN 5.5 G/DL (5.7-8.2)
[2023-10-17] MEDS ORDERED: HEPARIN 1,000UNITS/ML 10ML VIAL (FOR RADIOLOGY & DIALYSIS ONLY) IV PRN (06:00)
[2023-10-17] MEDS ORDERED: SODIUM CHLORIDE 0.9% 1000ML IV PRN (06:00)
[2023-10-17] MEDS ORDERED: HEPARIN 1,000UNITS/ML 10ML VIAL (FOR RADIOLOGY & DIALYSIS ONLY) XX SCH (06:00)
[2023-10-18] VITALS (7 sets, daily range): BP systolic 131–175; BP diastolic 70–102; TEMP 97.5–99.7; O2SAT 93–97
[2023-10-18] MEDS ORDERED: HEPARIN 1,000UNITS/ML 10ML VIAL (FOR RADIOLOGY & DIALYSIS ONLY) IV PRN (06:00)
[2023-10-18] MEDS ORDERED: HEPARIN 1,000UNITS/ML 10ML VIAL (FOR RADIOLOGY & DIALYSIS ONLY) XX SCH (06:00)
[2023-10-18] MEDS ORDERED: SODIUM CHLORIDE 0.9% 1000ML IV PRN (06:00)
[2023-10-18 06:37] LABS: BASO # 0.1 10^3/uL (0.0-0.2); BASO % 0.6 % (0.0-1.0); EOS # 0.3 10^3/uL (0.0-0.5); EOS % 3.1 % (0.0-3.0); HEMATOCRIT 32.9 % (42.0-52.0); HEMOGLOBIN 10.2 g/dl (13.5-17.5); LYMPH # 1.4 10^3/uL (1.5-5.0); LYMPH % 13.6 % (24.0-44.0); MEAN CORPUSCULAR HEMOGLOBIN 27.6 pg (27.0-33.0); MEAN CORPUSCULAR VOLUME 89.2 fl (80.0-96.0); MONO # 1.5 10^3/uL (0.0-0.8); MONO % 14.9 % (2.0-8.0); NEUTROPHILS # 6.7 10^3/uL (1.5-8.5); NEUTROPHILS % 67.5 % (36.0-66.0); PLATELET COUNT, AUTOMATED 276 10^3/uL (150-450); RED BLOOD COUNT 3.69 10^6/uL (4.30-6.10)
[2023-10-18 07:05] LABS: ALBUMIN 1.7 G/DL (3.2-5.2); BILIRUBIN,TOTAL 0.3 MG/DL (0.3-1.2); CALCIUM LEVEL 7.2 MG/DL (8.5-10.1); CREATININE FOR GFR 4.49 MG/DL (0.70-1.30); GLOMERULAR FILTRATION RATE 14.8 (>56); MAGNESIUM LEVEL 1.8 MG/DL (1.8-2.4); POTASSIUM SERUM 4.2 MMOL/L (3.5-5.1); TOTAL PROTEIN 5.5 G/DL (5.7-8.2)
[2023-10-19 00:54] VITALS: BP 143/80
[2023-10-19 05:40] VITALS: BP 137/84; TEMP 98.2; O2SAT 96
[2023-10-19] MEDS ORDERED: SODIUM CHLORIDE 0.9% 1000ML IV PRN (06:00)
[2023-10-19] MEDS ORDERED: HEPARIN 1,000UNITS/ML 10ML VIAL (FOR RADIOLOGY & DIALYSIS ONLY) IV PRN (06:00)
[2023-10-19 06:45] LABS: BASO # 0.1 10^3/uL (0.0-0.2); BASO % 0.6 % (0.0-1.0); EOS # 0.3 10^3/uL (0.0-0.5); EOS % 3.5 % (0.0-3.0); HEMATOCRIT 34.1 % (42.0-52.0); HEMOGLOBIN 10.4 g/dl (13.5-17.5); LYMPH # 1.5 10^3/uL (1.5-5.0); MEAN CORPUSCULAR HEMOGLOBIN 27.7 pg (27.0-33.0); MEAN CORPUSCULAR HGB CONC 30.5 g/dl (32.0-36.5); MEAN CORPUSCULAR VOLUME 90.9 fl (80.0-96.0); MONO # 1.3 10^3/uL (0.0-0.8); MONO % 13.5 % (2.0-8.0); NEUTROPHILS # 6.3 10^3/uL (1.5-8.5); NEUTROPHILS % 66.2 % (36.0-66.0); PLATELET COUNT, AUTOMATED 282 10^3/uL (150-450); RED BLOOD COUNT 3.75 10^6/uL (4.30-6.10); WHITE BLOOD COUNT 9.6 10^3/uL (4.0-10.0)
[2023-10-19 07:12] LABS: ALBUMIN 1.7 G/DL (3.2-5.2); BILIRUBIN,TOTAL 0.3 MG/DL (0.3-1.2); CALCIUM LEVEL 7.4 MG/DL (8.5-10.1); CREATININE FOR GFR 4.39 MG/DL (0.70-1.30); GLOMERULAR FILTRATION RATE 15.2 (>56); MAGNESIUM LEVEL 1.8 MG/DL (1.8-2.4); PHOSPHORUS LEVEL 4.2 MG/DL (2.5-4.9); POTASSIUM SERUM 4.4 MMOL/L (3.5-5.1); TOTAL PROTEIN 5.5 G/DL (5.7-8.2)
[2023-10-19 14:00] VITALS: BP 117/65; TEMP 97.7; O2SAT 94
[2023-10-19] MEDS ORDERED: ROCURONIUM BROMIDE 50MG/5ML VIAL As Ordered ONE (14:09)
[2023-10-19] MEDS ORDERED: LIDOCAINE 2% 100MG/5ML SDV (FOR ANES.) As Ordered ONE (14:09)
[2023-10-19] MEDS ORDERED: SUGAMMADEX SODIUM 500 MG/5 ML VIAL (BRIDION) As Ordered ONE (14:10)
[2023-10-19] MEDS ORDERED: propofoL 200 MG/20 ML VIAL As Ordered ONE (14:10)
[2023-10-19] MEDS ORDERED: ONDANSETRON 4MG 2ML VIAL As Ordered ONE (14:10)
[2023-10-19] MEDS ORDERED: fentaNYL 100 MCG/2 ML INJECTION As Ordered ONE (14:12)
[2023-10-19 20:00] VITALS: BP 127/75; TEMP 98.1; O2SAT 93
[2023-10-20 05:44] LABS: BASO # 0.1 10^3/uL (0.0-0.2); BASO % 0.7 % (0.0-1.0); EOS # 0.4 10^3/uL (0.0-0.5); HEMATOCRIT 33.1 % (42.0-52.0); HEMOGLOBIN 10.2 g/dl (13.5-17.5); LYMPH # 1.7 10^3/uL (1.5-5.0); LYMPH % 16.8 % (24.0-44.0); MEAN CORPUSCULAR HEMOGLOBIN 28.1 pg (27.0-33.0); MEAN CORPUSCULAR HGB CONC 30.8 g/dl (32.0-36.5); MEAN CORPUSCULAR VOLUME 91.2 fl (80.0-96.0); MONO # 1.3 10^3/uL (0.0-0.8); MONO % 12.6 % (2.0-8.0); NEUTROPHILS # 6.7 10^3/uL (1.5-8.5); NEUTROPHILS % 65.6 % (36.0-66.0); PLATELET COUNT, AUTOMATED 261 10^3/uL (150-450); RED BLOOD COUNT 3.63 10^6/uL (4.30-6.10); WHITE BLOOD COUNT 10.2 10^3/uL (4.0-10.0)
[2023-10-20 06:00] VITALS: BP 139/83; TEMP 98.2; O2SAT 94
[2023-10-20 06:03] LABS: ALBUMIN 1.7 G/DL (3.2-5.2); BILIRUBIN,TOTAL 0.2 MG/DL (0.3-1.2); CALCIUM LEVEL 7.2 MG/DL (8.5-10.1); CREATININE FOR GFR 5.29 MG/DL (0.70-1.30); GLOMERULAR FILTRATION RATE 12.3 (>56); MAGNESIUM LEVEL 1.9 MG/DL (1.8-2.4); POTASSIUM SERUM 4.2 MMOL/L (3.5-5.1); TOTAL PROTEIN 5.4 G/DL (5.7-8.2)
[2023-10-20] MEDS ORDERED: HEPARIN 1,000UNITS/ML 10ML VIAL (FOR RADIOLOGY & DIALYSIS ONLY) IV PRN (06:55)
[2023-10-20] MEDS ORDERED: SODIUM CHLORIDE 0.9% 1000ML IV PRN (06:55)
[2023-10-20] MEDS ORDERED: HEPARIN 1,000UNITS/ML 10ML VIAL (FOR RADIOLOGY & DIALYSIS ONLY) XX SCH (06:55)
[2023-10-20 14:00] VITALS: BP 120/68; TEMP 98.1; O2SAT 98
[2023-10-20 20:00] VITALS: BP 144/82; TEMP 98.2; O2SAT 94
[2023-10-21 06:00] VITALS: BP 163/87; TEMP 98.2; O2SAT 93
[2023-10-21 06:06] LABS: BASO # 0.1 10^3/uL (0.0-0.2); BASO % 0.8 % (0.0-1.0); EOS # 0.4 10^3/uL (0.0-0.5); EOS % 4.3 % (0.0-3.0); HEMATOCRIT 34.5 % (42.0-52.0); HEMOGLOBIN 10.6 g/dl (13.5-17.5); LYMPH # 1.7 10^3/uL (1.5-5.0); LYMPH % 19.2 % (24.0-44.0); MEAN CORPUSCULAR HGB CONC 30.7 g/dl (32.0-36.5); MONO # 1.1 10^3/uL (0.0-0.8); MONO % 12.5 % (2.0-8.0); NEUTROPHILS # 5.5 10^3/uL (1.5-8.5); PLATELET COUNT, AUTOMATED 265 10^3/uL (150-450); RED BLOOD COUNT 3.79 10^6/uL (4.30-6.10); WHITE BLOOD COUNT 8.7 10^3/uL (4.0-10.0)
[2023-10-21 06:48] LABS: ALBUMIN 1.8 G/DL (3.2-5.2); BILIRUBIN,TOTAL 0.3 MG/DL (0.3-1.2); CALCIUM LEVEL 8.2 MG/DL (8.5-10.1); CREATININE FOR GFR 4.35 MG/DL (0.70-1.30); GLOMERULAR FILTRATION RATE 15.4 (>56); MAGNESIUM LEVEL 1.8 MG/DL (1.8-2.4); POTASSIUM SERUM 4.4 MMOL/L (3.5-5.1); TOTAL PROTEIN 5.9 G/DL (5.7-8.2)
[2023-10-21 14:00] VITALS: BP 148/79; TEMP 97.7; O2SAT 96
[2023-10-21 20:00] VITALS: BP 154/83; TEMP 97.9; O2SAT 96
[2023-10-22 06:00] VITALS: BP 153/86; TEMP 97.7; O2SAT 96
[2023-10-22 06:32] LABS: BASO # 0.1 10^3/uL (0.0-0.2); BASO % 0.6 % (0.0-1.0); EOS # 0.4 10^3/uL (0.0-0.5); EOS % 4.1 % (0.0-3.0); HEMATOCRIT 34.2 % (42.0-52.0); HEMOGLOBIN 10.6 g/dl (13.5-17.5); LYMPH # 1.5 10^3/uL (1.5-5.0); LYMPH % 15.8 % (24.0-44.0); MEAN CORPUSCULAR HEMOGLOBIN 28.3 pg (27.0-33.0); MEAN CORPUSCULAR VOLUME 91.4 fl (80.0-96.0); MONO % 10.5 % (2.0-8.0); NEUTROPHILS # 6.4 10^3/uL (1.5-8.5); NEUTROPHILS % 68.8 % (36.0-66.0); PLATELET COUNT, AUTOMATED 248 10^3/uL (150-450); RED BLOOD COUNT 3.74 10^6/uL (4.30-6.10); WHITE BLOOD COUNT 9.3 10^3/uL (4.0-10.0)
[2023-10-22 07:10] LABS: ALBUMIN 1.8 G/DL (3.2-5.2); BILIRUBIN,TOTAL 0.2 MG/DL (0.3-1.2); CALCIUM LEVEL 7.8 MG/DL (8.5-10.1); CREATININE FOR GFR 4.98 MG/DL (0.70-1.30); GLOMERULAR FILTRATION RATE 13.2 (>56); MAGNESIUM LEVEL 1.8 MG/DL (1.8-2.4); POTASSIUM SERUM 4.6 MMOL/L (3.5-5.1); TOTAL PROTEIN 5.6 G/DL (5.7-8.2)
[2023-10-22 14:00] VITALS: BP 149/86; TEMP 97.5; O2SAT 95
[2023-10-22 20:00] VITALS: BP 148/86; TEMP 97.7; O2SAT 96
[2023-10-23 04:00] VITALS: BP 161/85; TEMP 97.9; O2SAT 94
[2023-10-23] MEDS ORDERED: HEPARIN 1,000UNITS/ML 10ML VIAL (FOR RADIOLOGY & DIALYSIS ONLY) XX SCH (06:45)
[2023-10-23] MEDS ORDERED: SODIUM CHLORIDE 0.9% 1000ML IV PRN (06:45)
[2023-10-23] MEDS ORDERED: HEPARIN 1,000UNITS/ML 10ML VIAL (FOR RADIOLOGY & DIALYSIS ONLY) IV PRN (06:45)
[2023-10-23 06:48] LABS: BASO # 0.1 10^3/uL (0.0-0.2); BASO % 0.8 % (0.0-1.0); EOS # 0.3 10^3/uL (0.0-0.5); EOS % 3.8 % (0.0-3.0); HEMATOCRIT 34.6 % (42.0-52.0); HEMOGLOBIN 10.4 g/dl (13.5-17.5); LYMPH # 1.5 10^3/uL (1.5-5.0); LYMPH % 16.8 % (24.0-44.0); MEAN CORPUSCULAR HGB CONC 30.1 g/dl (32.0-36.5); MEAN CORPUSCULAR VOLUME 93.3 fl (80.0-96.0); MONO # 0.9 10^3/uL (0.0-0.8); MONO % 10.1 % (2.0-8.0); NEUTROPHILS # 6.1 10^3/uL (1.5-8.5); NEUTROPHILS % 68.2 % (36.0-66.0); PLATELET COUNT, AUTOMATED 281 10^3/uL (150-450); RED BLOOD COUNT 3.71 10^6/uL (4.30-6.10); WHITE BLOOD COUNT 8.9 10^3/uL (4.0-10.0)
[2023-10-23 07:20] LABS: ALBUMIN 2.1 G/DL (3.2-5.2); BILIRUBIN,TOTAL 0.2 MG/DL (0.3-1.2); CALCIUM LEVEL 7.9 MG/DL (8.5-10.1); CREATININE FOR GFR 5.35 MG/DL (0.70-1.30); GLOMERULAR FILTRATION RATE 12.1 (>56); MAGNESIUM LEVEL 1.8 MG/DL (1.8-2.4); POTASSIUM SERUM 4.8 MMOL/L (3.5-5.1); TOTAL PROTEIN 5.8 G/DL (5.7-8.2)
[2023-10-23] MEDS ORDERED: ceFAZolin 2 GM/D5W 50 ML IV BAG As Ordered ONE (09:53)
[2023-10-23] MEDS ORDERED: MIDAZOLAM INJ 2MG/2ML VIAL As Ordered ONE (09:54)
[2023-10-23] MEDS ORDERED: LIDOCAINE 1% MDV 20ML VIAL As Ordered ONE (09:55)
[2023-10-23] MEDS ORDERED: HEPARIN 1,000UNITS/ML 10ML VIAL (FOR RADIOLOGY & DIALYSIS ONLY) As Ordered ONE (09:55)
[2023-10-23] MEDS ORDERED: LIDOCAINE W/EPINEPHRINE 1% 20ML VIAL As Ordered ONE (09:55)
[2023-10-23] MEDS: NS 1,000 ML IV SCH (11:50)
[2023-10-23] MEDS: ceFAZolin SOD 2 GM in IV 1 EA IV ONE (12:00)
[2023-10-23] MEDS: DARBEPOETIN 100MCG/0.5ML *DIALYSIS* SYRINGE IV SCH (12:08)
[2023-10-23 22:00] VITALS: BP 154/88; TEMP 97.5; O2SAT 97
[2023-10-24 06:00] VITALS: BP 156/90; TEMP 97.9; O2SAT 95
[2023-10-24 06:33] LABS: BASO # 0.1 10^3/uL (0.0-0.2); BASO % 0.9 % (0.0-1.0); EOS # 0.4 10^3/uL (0.0-0.5); EOS % 4.2 % (0.0-3.0); HEMATOCRIT 34.2 % (42.0-52.0); HEMOGLOBIN 10.6 g/dl (13.5-17.5); LYMPH # 1.6 10^3/uL (1.5-5.0); LYMPH % 18.3 % (24.0-44.0); MEAN CORPUSCULAR HEMOGLOBIN 28.2 pg (27.0-33.0); NEUTROPHILS # 5.6 10^3/uL (1.5-8.5); NEUTROPHILS % 64.3 % (36.0-66.0); PLATELET COUNT, AUTOMATED 250 10^3/uL (150-450); RED BLOOD COUNT 3.76 10^6/uL (4.30-6.10); WHITE BLOOD COUNT 8.7 10^3/uL (4.0-10.0)
[2023-10-24 06:55] LABS: BILIRUBIN,TOTAL 0.2 MG/DL (0.3-1.2); CALCIUM LEVEL 7.5 MG/DL (8.5-10.1); CREATININE FOR GFR 4.29 MG/DL (0.70-1.30); GLOMERULAR FILTRATION RATE 15.6 (>56); MAGNESIUM LEVEL 1.8 MG/DL (1.8-2.4); POTASSIUM SERUM 4.5 MMOL/L (3.5-5.1); TOTAL PROTEIN 5.6 G/DL (5.7-8.2)
[2023-10-24 09:05] VITALS: BP 157/89
[2023-10-24] MEDS ORDERED: CALC1CAP31 PO (11:23)
[2023-10-24] MEDS ORDERED: LISI20TA33 PO (11:23)
[2023-10-24] MEDS ORDERED: ATOR1TAB21 PO (11:23)
[2023-10-24] MEDS ORDERED: RENV2TAB PO (11:23)
[2023-10-24] MEDS ORDERED: CLON-412 PO (13:28)
[2023-10-24] MEDS ORDERED: NITR4TASL SL (13:28)
[2023-10-24] MEDS ORDERED: HYDR100T PO (13:28)
[2023-10-24] MEDS ORDERED: TOUJ1.2I SC (13:28)
[2023-10-24] MEDS ORDERED: CLOP75TA99 PO (13:28)
[2023-10-24] MEDS ORDERED: PANT-23 PO (13:28)
[2023-10-24] MEDS ORDERED: METO200T28 PO (13:28)
[2023-10-24] MEDS ORDERED: ISOS1TAB35 PO (13:28)
[2023-10-24] MEDS ORDERED: DULA3PEN SC (13:28)
[2023-10-24] MEDS ORDERED: INSUH10VL SC (13:28)
== END 2023-10-24 13:41 | disposition home or self-care (01) | DRG 194 ==
LOC: M ED 19:25 → M ED INP 10-13 03:01 → ENRESERV 10-13 04:05 → M PCU 10-13 06:01 → M MSPAV 10-18 23:18
PROVIDERS: ADMIT Family Medicine; ATTEND Internal Medicine
PROC: 0JH63XZ Insertion of Tunneled Vascular Access Device into Chest Subcutaneous Tissue and Fascia, Percutaneous Approach (ICD-10-PCS; 2023-10-23)
PROC: 02HV33Z Insertion of Infusion Device into Superior Vena Cava, Percutaneous Approach (ICD-10-PCS; principal; 2023-10-23 09:00)
DX: I13.2 Hypertensive heart and chronic kidney disease with heart failure and with stage 5 chronic kidney disease, or end stage renal disease (principal); N17.9 Acute kidney failure, unspecified; E87.20 Acidosis, unspecified; E11.22 Type 2 diabetes mellitus with diabetic chronic kidney disease; E11.51 Type 2 diabetes mellitus with diabetic peripheral angiopathy without gangrene; B97.4 Respiratory syncytial virus as the cause of diseases classified elsewhere; N18.6 End stage renal disease; E11.622 Type 2 diabetes mellitus with other skin ulcer; N04.9 Nephrotic syndrome with unspecified morphologic changes; L97.929 Non-pressure chronic ulcer of unspecified part of left lower leg with unspecified severity; E11.319 Type 2 diabetes mellitus with unspecified diabetic retinopathy without macular edema; Z95.1 Presence of aortocoronary bypass graft; Z95.2 Presence of prosthetic heart valve; D63.1 Anemia in chronic kidney disease; I16.9 Hypertensive crisis, unspecified; K21.9 Gastro-esophageal reflux disease without esophagitis; Z79.4 Long term (current) use of insulin; I25.10 Atherosclerotic heart disease of native coronary artery without angina pectoris; Z89.511 Acquired absence of right leg below knee; Z79.899 Other long term (current) drug therapy; F41.9 Anxiety disorder, unspecified; Z86.718 Personal history of other venous thrombosis and embolism; Z86.711 Personal history of pulmonary embolism; I50.33 Acute on chronic diastolic (congestive) heart failure

== ENCOUNTER → 2024-06-20 | Outpatient (REF) ==
[~2024-06-20] MED LIST changes: +ATOR1TAB21 PO; +CALC1CAP31 PO; +DOXY-440 PO; -DOXY-444 PO; +GABA-1172 PO; -GABA-282 PO; +LISI20TA33 PO; +METO200T15 PO; -METO200T28 PO; +RENV2TAB PO; +TOUJ1.2I SC
== END ==
LOC: EDSTATUS 06-18 13:30 → M PLAIMG 13:46
PROVIDERS: ATTEND Nurse Practitioner Family
DX: N18.6 End stage renal disease (principal)

== ENCOUNTER → 2024-08-19 | Outpatient (CLI) | payer BC, MEDICAID, OTHER ==
[~2024-08-19] VITALS: Ht 182.9 cm; Wt 127.3 kg
[~2024-08-19] MED LIST changes: +HEPARIN 1,000UNITS/ML 10ML VIAL (FOR RADIOLOGY & DIALYSIS ONLY) As Ordered ONE; +ISOVUE-300 61% 100ML VIAL As Ordered ONE; +LIDOCAINE 1% MDV 20ML VIAL As Ordered ONE; +MIDAZOLAM INJ 2MG/2ML VIAL As Ordered ONE; +NS 1,000 ML IV SCH; +ceFAZolin 1GM VIAL As Ordered ONE; +ceFAZolin 2 GM/D5W 50 ML IV BAG As Ordered ONE; +ceFAZolin SOD 2 GM in IV 1 EA IV ONE; +ceFAZolin SOD 3 GM in IV 1 EA IV ONE; +fentaNYL 100 MCG/2 ML INJECTION As Ordered ONE
[2024-08-19 09:00] VITALS: TEMP 97.8
[2024-08-19] MEDS: ceFAZolin SOD 1 GM in DEXTROSE 5% (D5W) ADV/MINI-BAG 50 ML IV ONE (09:50)
[2024-08-19] MEDS: ceFAZolin SOD 2 GM in IV 1 EA IV ONE (09:50)
[2024-08-19 11:45] VITALS: BP 178/96; O2SAT 95
== END ==
LOC: M IRPRO 08:48
PROVIDERS: ATTEND Internal Medicine Nephrology
DX: N18.9 Chronic kidney disease, unspecified (principal)
CPT/HCPCS: 36581; 99152; 99153; J0690; J2250; J3010; Q9967

== ENCOUNTER 2024-09-08 05:58 | Day surgery (SDC) | payer OTHER ==
[~2024-09-08] VITALS: Ht 182.9 cm; Wt 128.4 kg
[~2024-09-08 05:58] MED LIST changes: -HEPARIN 1,000UNITS/ML 10ML VIAL (FOR RADIOLOGY & DIALYSIS ONLY) As Ordered ONE; -ISOVUE-300 61% 100ML VIAL As Ordered ONE; -LIDOCAINE 1% MDV 20ML VIAL As Ordered ONE; -MIDAZOLAM INJ 2MG/2ML VIAL As Ordered ONE; -NS 1,000 ML IV SCH; -ceFAZolin 1GM VIAL As Ordered ONE; -ceFAZolin 2 GM/D5W 50 ML IV BAG As Ordered ONE; -ceFAZolin SOD 2 GM in IV 1 EA IV ONE; -ceFAZolin SOD 3 GM in IV 1 EA IV ONE; -fentaNYL 100 MCG/2 ML INJECTION As Ordered ONE
[2024-09-08] MEDS ORDERED: fentaNYL 100 MCG/2 ML INJECTION As Ordered ONE (06:32)
[2024-09-08] MEDS ORDERED: MIDAZOLAM INJ 2MG/2ML VIAL As Ordered ONE (06:32)
[2024-09-08] MEDS ORDERED: GLUCOSE 4 GM CHEW PO PRN (06:35)
[2024-09-08] MEDS ORDERED: GLUCAGON INJ 1MG VIAL SC PRN (06:35)
[2024-09-08] MEDS ORDERED: DEXTROSE 50% 50ML SYRINGE IV PRN (06:35)
[2024-09-08] MEDS: PHENYLEPHRINE 2.5% OPHTH SOL 2ML OD SCH (06:48)
[2024-09-08] MEDS: TETRACAINE 0.5% OPHTH SOLN 4ML OD SCH (06:48)
[2024-09-08] MEDS: FLURBIPROFEN 0.03% OPHTH SOLN 2.5 ML OD SCH (06:48)
[2024-09-08] MEDS: CYCLOPENTOLATE 1% OPHTH SOLN 2ML BTL OD SCH (06:48)
[2024-09-08] MEDS ORDERED: LR 1,000 ML IV SCH (07:00)
[2024-09-08] MEDS: INSULIN LISPRO (NovoLOG) PER UNIT SC PRN (07:05)
[2024-09-08] MEDS: LIDOCAINE 1% SDV 5ML VIAL As Ordered ONE (07:42)
[2024-09-08] MEDS: CEFUROXIME 1MG/0.1ML INTRACAMERAL INJ As Ordered ONE (07:50)
[2024-09-08] MEDS: TRYPAN BLUE 0.06 % 2.25 ML OPHTH SYR (VISIONBLUE) As Ordered ONE (07:50)
[2024-09-08 08:03] VITALS: BP 176/90; TEMP 97.7; O2SAT 96
== END 2024-09-08 08:21 | disposition home or self-care (01) ==
LOC: M SDC 05:58
PROVIDERS: ATTEND Ophthalmology
DX: H25.11 Age-related nuclear cataract, right eye (principal); H25.041 Posterior subcapsular polar age-related cataract, right eye; Z98.61 Coronary angioplasty status; I25.10 Atherosclerotic heart disease of native coronary artery without angina pectoris; I10 Essential (primary) hypertension; E78.5 Hyperlipidemia, unspecified; E11.9 Type 2 diabetes mellitus without complications; Z79.4 Long term (current) use of insulin; Z79.02 Long term (current) use of antithrombotics/antiplatelets; Z79.899 Other long term (current) drug therapy; N40.0 Benign prostatic hyperplasia without lower urinary tract symptoms
CPT/HCPCS: 36415; 66984; 84132; J0697; J2250; J3010; V2632

== ENCOUNTER 2024-11-25 15:34 | Inpatient (IN) | payer OTHER ==
[~2024-11-25] VITALS: Ht 182.9 cm; Wt 126.3 kg
[2024-11-25 16:21] LABS: BASO # 0.1 10^3/uL (0.0-0.2); BASO % 0.4 % (0.0-1.0); EOS # 0.3 10^3/uL (0.0-0.5); EOS % 2.3 % (0.0-3.0); HEMATOCRIT 34.4 % (42.0-52.0); HEMOGLOBIN 11.9 g/dl (13.5-17.5); LYMPH # 1.3 10^3/uL (1.5-5.0); LYMPH % 9.7 % (24.0-44.0); MEAN CORPUSCULAR HGB CONC 34.6 g/dl (32.0-36.5); MEAN CORPUSCULAR VOLUME 98.3 fl (80.0-96.0); MONO # 0.8 10^3/uL (0.0-0.8); MONO % 6.1 % (2.0-8.0); NEUTROPHILS # 10.5 10^3/uL (1.5-8.5); PLATELET COUNT, AUTOMATED 237 10^3/uL (150-450); WHITE BLOOD COUNT 12.9 10^3/uL (4.0-10.0)
[2024-11-25] MEDS: IPRATROPIUM 0.5MG/ALBUTEROL 2.5MG INH SOL UD 3ML (DUONEB) NEB PRN (16:38)
[2024-11-25 16:46] LABS: CALCIUM LEVEL 8.2 MG/DL (8.5-10.1); CK-MB VALUE MASS 4.4 NG/ML (<3.6); CREATININE FOR GFR 4.46 MG/DL (0.70-1.30); GLOMERULAR FILTRATION RATE 14.9 (>56); POTASSIUM SERUM 3.5 MMOL/L (3.5-5.1)
[2024-11-25] MEDS ORDERED: ISOVUE-370 76% 100ML VIAL As Ordered ONE (16:53)
[2024-11-25 16:59] LABS: THYROID STIMULATING HORMONE 3.112 uIU/ML (0.55-4.78); THYROXINE (T4) 6.2 UG/DL (4.5-10.9)
[2024-11-25 17:01] LABS: MB/CK RELATIVE INDEX 1.75 (< OR =4)
[2024-11-25] MEDS: methylPREDNISolone 125MG 2ML VIAL IV ONE (17:10)
[2024-11-25 17:21] LABS: VENOUS BASE EXCESS 4.5 (-2.0-2.0); VENOUS HCO3 29.1 MMOL/L (23.0-27.0); VENOUS O2 SATURATION 71.8 % (60.0-80.0); VENOUS PARTIAL PRESSURE CO2 43.3 mmHg (38.0-50.0); VENOUS PH 7.445 UNITS (7.330-7.430); VENOUS TOTAL CO2 30.4 MMOL/L (24.0-28.0)
[2024-11-25 17:22] LABS: INR 0.98; PROTHROMBIN TIME 13.3 SECONDS (12.5-14.5)
[2024-11-25 17:47] LABS: CK-MB VALUE MASS 4.2 NG/ML (<3.6)
[2024-11-25 17:55] LABS: MB/CK RELATIVE INDEX 1.88 (< OR =4)
[2024-11-25] MEDS: ACETAMINOPHEN 500 MG TAB PO ONE (18:41)
[2024-11-25 19:27] LABS: CK-MB VALUE MASS 3.7 NG/ML (<3.6)
[2024-11-25] MEDS ORDERED: LISI20TA33 PO (19:29)
[2024-11-25] MEDS ORDERED: SEVE800T3 PO (19:29)
[2024-11-25] MEDS ORDERED: CALC1CAP31 PO (19:29)
[2024-11-25] MEDS ORDERED: DULA3PEN SQ (19:29)
[2024-11-25] MEDS ORDERED: ATOR40TA75 PO (19:29)
[2024-11-25] MEDS ORDERED: DOXY100C3 PO (19:29)
[2024-11-25] MEDS ORDERED: HYDR100T26 PO (19:29)
[2024-11-25] MEDS ORDERED: GABA-1171 PO (19:29)
[2024-11-25] MEDS ORDERED: HOME MED LIST COMPLETE! XX SCH (19:30)
[2024-11-25 19:31] LABS: MB/CK RELATIVE INDEX 1.6 (< OR =4)
[2024-11-25] MEDS ORDERED: MAALOX 30 ML SUSP *UDC PO PRN (20:50)
[2024-11-25] MEDS ORDERED: MOM 30ML SUSPENSION UDC PO PRN (20:50)
[2024-11-25] MEDS ORDERED: DEXTROSE 50% 50ML SYRINGE IV PRN (21:15)
[2024-11-25] MEDS ORDERED: GLUCAGON INJ 1MG VIAL SC PRN (21:15)
[2024-11-25] MEDS ORDERED: GLUCOSE 4 GM CHEW PO PRN (21:15)
[2024-11-25] MEDS: INSULIN LISPRO (NovoLOG) PER UNIT SC SCH (22:06)
[2024-11-25 22:19] LABS: MB/CK RELATIVE INDEX 1.33 (< OR =4)
[2024-11-25 22:29] VITALS: BP 187/88; TEMP 97.6; O2SAT 93
[2024-11-25] MEDS: DOCUSATE SODIUM 100MG CAPSULE PO SCH (22:39)
[2024-11-25] MEDS: FUROSEMIDE 100MG/10ML VIAL IV ONE (22:39)
[2024-11-25 23:10] VITALS: BP 159/68; TEMP 97.2; O2SAT 94
[2024-11-26] VITALS (7 sets, daily range): BP systolic 92–150; BP diastolic 47–77; PULSE 84; TEMP 96.8–98.2; O2SAT 87–98
[2024-11-26] MEDS ORDERED: NITROGLYCERIN 0.4MG SUBL TABLET SL PRN (04:25)
[2024-11-26] MEDS: HEPARIN SOD (PORCINE) 5000UNITS/ML 1ML VIAL/SYRINGE SC SCH (05:29)
[2024-11-26 05:41] LABS: HEMATOCRIT 32.9 % (42.0-52.0); HEMOGLOBIN 10.9 g/dl (13.5-17.5); MEAN CORPUSCULAR HEMOGLOBIN 32.2 pg (27.0-33.0); MEAN CORPUSCULAR HGB CONC 33.1 g/dl (32.0-36.5); MEAN CORPUSCULAR VOLUME 97.1 fl (80.0-96.0); PLATELET COUNT, AUTOMATED 222 10^3/uL (150-450); RED BLOOD COUNT 3.39 10^6/uL (4.30-6.10); WHITE BLOOD COUNT 12.7 10^3/uL (4.0-10.0)
[2024-11-26 06:18] LABS: PROCALCITONIN 0.71 ng/ml
[2024-11-26 06:24] LABS: BILIRUBIN,TOTAL 0.3 MG/DL (0.3-1.2); CHOLESTEROL RISK RATIO 5.97 (<5); CREATININE FOR GFR 6.11 MG/DL (0.70-1.30); GLOMERULAR FILTRATION RATE 10.3 (>56); HDL CHOLESTEROL 28.3 MG/DL (>40); LDL CHOLESTEROL 97.9 MG/DL (<100); NON-HDL-C 140.7 MG/DL; POTASSIUM SERUM 4.3 MMOL/L (3.5-5.1)
[2024-11-26] MEDS: INSULIN LISPRO (NovoLOG) PER UNIT SC ONE (06:33)
[2024-11-26 07:28] LABS: VENOUS BASE EXCESS 0.1 (-2.0-2.0); VENOUS HCO3 26.1 MMOL/L (23.0-27.0); VENOUS O2 SATURATION 85.6 % (60.0-80.0); VENOUS PARTIAL PRESSURE CO2 48.5 mmHg (38.0-50.0); VENOUS PARTIAL PRESSURE O2 55.5 mmHg (30.0-50.0); VENOUS PH 7.349 UNITS (7.330-7.430); VENOUS STANDARD HCO3 24.3 MMOL/L; VENOUS TOTAL CO2 27.6 MMOL/L (24.0-28.0)
[2024-11-26] MEDS ORDERED: INSULIN LISPRO (NovoLOG) PER UNIT SC SCH ×4 (07:30→21:00)
[2024-11-26 08:00] LABS: HEMOGLOBIN A1c 10.9 % (4.0-6.0)
[2024-11-26] MEDS ORDERED: CEFEPIME HCL 1 GM in DEXTROSE 5% (D5W) ADV/MINI-BAG 50 ML IV ONE (08:00)
[2024-11-26 08:02] LABS: CHOLESTEROL RISK RATIO 6.02 (<5); HDL CHOLESTEROL 29.9 MG/DL (>40); LDL CHOLESTEROL 110.5 MG/DL (<100); NON-HDL-C 150.1 MG/DL
[2024-11-26] MEDS ORDERED: LanTUS (INSULIN GLARGINE INJ) 1 UNITS/0.01 ML SC SCH (09:00)
[2024-11-26] MEDS ORDERED: PANTOPRAZOLE 40MG VIAL IV SCH (09:00)
[2024-11-26] MEDS ORDERED: HEPARIN 1,000UNITS/ML 10ML VIAL (FOR RADIOLOGY & DIALYSIS ONLY) IV PRN (09:10)
[2024-11-26] MEDS ORDERED: LIDOCAINE 1% SDV 5ML VIAL SC PRN (09:10)
[2024-11-26] MEDS ORDERED: SODIUM CHLORIDE 0.9% 1000 ML IV PRN (09:10)
[2024-11-26] MEDS: DOXYCYCLINE HYCLATE 100MG TABLET PO SCH (09:32)
[2024-11-26] MEDS: (RENVELA) SEVELAMER **CARBONate** 800 MG TAB PO SCH (09:33)
[2024-11-26] MEDS: **hydrALAZINE** 50 MG TAB PO SCH (09:33)
[2024-11-26] MEDS: ATORVASTATIN 20 MG TAB PO SCH (09:33)
[2024-11-26] MEDS: PANTOPRAZOLE 40MG TAB (PROTONIX) PO SCH (09:34)
[2024-11-26] MEDS: cloNIDine 0.1MG TABLET PO SCH (09:34)
[2024-11-26] MEDS: ISOSORBIDE MON. (IMDUR) 30MG XR TAB PO SCH (09:34)
[2024-11-26] MEDS: CALCITRIOL 0.25 MCG CAP (S0169) PO SCH (09:34)
[2024-11-26] MEDS: METOPROLOL TART 25 MG TABLET PO SCH (09:35)
[2024-11-26] MEDS: CLOPIDOGREL 75 MG TAB PO SCH (09:35)
[2024-11-26] MEDS: LanTUS (INSULIN GLARGINE INJ) 1 UNITS/0.01 ML SC ONE ×2 (09:41→09:50)
[2024-11-26] MEDS ORDERED: cefTRIAXone SOD 1 GM in DEXTROSE 5% (D5W) ADV/MINI-BAG 50 ML IV SCH (10:00)
[2024-11-26] MEDS: HEPARIN 1,000UNITS/ML 10ML VIAL (FOR RADIOLOGY & DIALYSIS ONLY) XX SCH (10:41)
[2024-11-26] MEDS: INSULIN LISPRO (NovoLOG) PER UNIT SC SCH ×3 (13:22→21:45)
[2024-11-26] MEDS: cefTRIAXone SOD 1 GM in NS MINI-BAG PLUS 50 ML IV SCH (14:17)
[2024-11-26] MEDS: ACETAMINOPHEN 325 MG TAB PO PRN (20:07)
[2024-11-26] MEDS: LanTUS (INSULIN GLARGINE INJ) 1 UNITS/0.01 ML SC SCH (21:46)
[2024-11-26] MEDS: GABAPENTIN 100 MG CAP PO SCH (22:59)
[2024-11-26] MEDS: GABAPENTIN 100 MG CAP PO ONE (23:00)
[2024-11-27] VITALS (12 sets, daily range): BP systolic 99–122; BP diastolic 47–75; PULSE 74–84; TEMP 97.1–97.8; O2SAT 91–98
[2024-11-27] MEDS ORDERED: HEPARIN 1,000UNITS/ML 10ML VIAL (FOR RADIOLOGY & DIALYSIS ONLY) XX SCH (06:00)
[2024-11-27] MEDS ORDERED: SODIUM CHLORIDE 0.9% 1000 ML IV PRN (06:00)
[2024-11-27] MEDS ORDERED: HEPARIN 1,000UNITS/ML 10ML VIAL (FOR RADIOLOGY & DIALYSIS ONLY) IV PRN (06:00)
[2024-11-27] MEDS ORDERED: LIDOCAINE 1% SDV 5ML VIAL SC PRN (06:00)
[2024-11-27 07:49] LABS: HEMATOCRIT 33.2 % (42.0-52.0); HEMOGLOBIN 10.9 g/dl (13.5-17.5); MEAN CORPUSCULAR HEMOGLOBIN 32.4 pg (27.0-33.0); MEAN CORPUSCULAR HGB CONC 32.8 g/dl (32.0-36.5); MEAN CORPUSCULAR VOLUME 98.8 fl (80.0-96.0); PLATELET COUNT, AUTOMATED 248 10^3/uL (150-450); RED BLOOD COUNT 3.36 10^6/uL (4.30-6.10); WHITE BLOOD COUNT 13.4 10^3/uL (4.0-10.0)
[2024-11-27 08:30] LABS: ALBUMIN 3.1 G/DL (3.2-5.2); BILIRUBIN,TOTAL 0.2 MG/DL (0.3-1.2); CALCIUM LEVEL 7.9 MG/DL (8.5-10.1); CREATININE FOR GFR 8.57 MG/DL (0.70-1.30); POTASSIUM SERUM 4.3 MMOL/L (3.5-5.1); TOTAL PROTEIN 7.2 G/DL (5.7-8.2)
[2024-11-27] MEDS ORDERED: LanTUS (INSULIN GLARGINE INJ) 1 UNITS/0.01 ML SC SCH (09:00)
[2024-11-27] MEDS ORDERED: CEFEPIME HCL 1 GM in DEXTROSE 5% (D5W) ADV/MINI-BAG 50 ML IV SCH (12:00)
[2024-11-28] VITALS: BP 107/58; PULSE 77; TEMP 97.3; O2SAT 92
[2024-11-28 04:27] VITALS: BP 108/54; TEMP 96.7; O2SAT 96
[2024-11-28 06:11] LABS: HEMATOCRIT 34.9 % (42.0-52.0); HEMOGLOBIN 11.5 g/dl (13.5-17.5); MEAN CORPUSCULAR HEMOGLOBIN 32.4 pg (27.0-33.0); MEAN CORPUSCULAR VOLUME 98.3 fl (80.0-96.0); PLATELET COUNT, AUTOMATED 227 10^3/uL (150-450); RED BLOOD COUNT 3.55 10^6/uL (4.30-6.10); WHITE BLOOD COUNT 12.2 10^3/uL (4.0-10.0)
[2024-11-28 06:34] LABS: ALBUMIN 2.9 G/DL (3.2-5.2); ALKALINE PHOSPHATASE 53 U/L (40-129); ALT/SGPT 19 U/L (7.0-40); AST/SGOT 16 U/L (<34); BILIRUBIN,TOTAL < 0.2 MG/DL (0.3-1.2); BLOOD UREA NITROGEN 44 MG/DL (9-23); CALCIUM LEVEL 7.5 MG/DL (8.5-10.1); CARBON DIOXIDE LEVEL 24 MMOL/L (20-31); CHLORIDE LEVEL 94 MMOL/L (98-107); CREATININE FOR GFR 6.87 MG/DL (0.70-1.30); GLUCOSE, FASTING 203 MG/DL (60-100); POTASSIUM SERUM 3.6 MMOL/L (3.5-5.1); SODIUM LEVEL 135 MMOL/L (136-145); TOTAL PROTEIN 6.8 G/DL (5.7-8.2)
[2024-11-28 08:06] VITALS: BP 106/60; TEMP 97.3; O2SAT 92
[2024-11-28] MEDS ORDERED: COLA100C5 PO (11:53)
[2024-11-28] MEDS ORDERED: CEFD1CAP9 PO (11:53)
[2024-11-28] MEDS ORDERED: DOXY100T PO (11:53)
[2024-11-28 12:00] VITALS: BP 103/61; TEMP 98.2; O2SAT 93
== END 2024-11-28 14:10 | disposition home or self-care (01) | DRG 194 ==
LOC: M ED 15:34 → EEVIPCON 20:49 → M ED INP 20:49 → M PCU 22:27
PROVIDERS: ADMIT Student in an Organized Health Care Education/Training Program; ATTEND Internal Medicine
PROC: 5A1D70Z Performance of Urinary Filtration, Intermittent, Less than 6 Hours Per Day (ICD-10-PCS; principal; 2024-11-26)
DX: I13.2 Hypertensive heart and chronic kidney disease with heart failure and with stage 5 chronic kidney disease, or end stage renal disease (principal); I50.33 Acute on chronic diastolic (congestive) heart failure; N18.6 End stage renal disease; E11.65 Type 2 diabetes mellitus with hyperglycemia; J18.9 Pneumonia, unspecified organism; I95.9 Hypotension, unspecified; Z79.899 Other long term (current) drug therapy; Z79.4 Long term (current) use of insulin; Z99.2 Dependence on renal dialysis; I25.10 Atherosclerotic heart disease of native coronary artery without angina pectoris; Z95.1 Presence of aortocoronary bypass graft; E11.22 Type 2 diabetes mellitus with diabetic chronic kidney disease; E11.319 Type 2 diabetes mellitus with unspecified diabetic retinopathy without macular edema; E11.40 Type 2 diabetes mellitus with diabetic neuropathy, unspecified; K21.9 Gastro-esophageal reflux disease without esophagitis; N40.0 Benign prostatic hyperplasia without lower urinary tract symptoms; D64.9 Anemia, unspecified; Z86.718 Personal history of other venous thrombosis and embolism; Z86.711 Personal history of pulmonary embolism; F41.9 Anxiety disorder, unspecified; Z89.511 Acquired absence of right leg below knee; Z95.2 Presence of prosthetic heart valve

== ENCOUNTER 2025-03-21 17:03 | Observation (INO) | payer OTHER ==
[~2025-03-21] VITALS: Ht 182.9 cm; Wt 127.3 kg
[~2025-03-21 17:03] MED LIST changes: +ATOR40TA75 PO; +CEFD1CAP9 PO; +DOXY100C3 PO; +DOXY100T PO; +DULA3PEN SQ; -FLOM0.4C39 PO; +GABA-1171 PO; +HYDR100T26 PO; +LISI40TA10 PO; -LISI40TA4 PO; -PRED50TA PO; +PRED50TA57 PO; +SEVE800T3 PO; +TAMS-18 PO
[2025-03-21] MEDS ORDERED: TIRZ2.5P PO (17:15)
[2025-03-21 19:26] LABS: BASO # 0.1 10^3/uL (0.0-0.2); BASO % 0.6 % (0.0-1.0); EOS # 0.4 10^3/uL (0.0-0.5); EOS % 3.2 % (0.0-3.0); LYMPH # 1.3 10^3/uL (1.5-5.0); LYMPH % 10.7 % (24.0-44.0); MONO # 1.0 10^3/uL (0.0-0.8); MONO % 8.0 % (2.0-8.0); NEUTROPHILS # 9.5 10^3/uL (1.5-8.5); NEUTROPHILS % 76.9 % (36.0-66.0); PLATELET COUNT, AUTOMATED 236 10^3/uL (150-450)
[2025-03-21 19:58] LABS: CPK CREATINE PHOSPHOKINASE 171.0 U/L (46-171)
[2025-03-21 19:59] LABS: ALT/SGPT 25.0 U/L (7.0-40); AST/SGOT 23.0 U/L (<34); CALCIUM LEVEL 8.5 MG/DL (8.5-10.1); CARBON DIOXIDE LEVEL 34.0 MMOL/L (20-31); CHLORIDE LEVEL 92.0 MMOL/L (98-107); CK-MB VALUE MASS 5.2 NG/ML (<3.6); CREATININE FOR GFR 4.64 MG/DL (0.70-1.30); GLOMERULAR FILTRATION RATE 14.3 (>56); MB/CK RELATIVE INDEX 3.04 (< OR =4); POTASSIUM SERUM 3.4 MMOL/L (3.5-5.1); SODIUM LEVEL 138.0 MMOL/L (136-145)
[2025-03-21 21:04] LABS: CK-MB VALUE MASS 5.1 NG/ML (<3.6)
[2025-03-21 21:06] LABS: CPK CREATINE PHOSPHOKINASE 156.0 U/L (46-171); MB/CK RELATIVE INDEX 3.26 (< OR =4)
[2025-03-21 22:40] VITALS: O2SAT 79
[2025-03-22] MEDS ORDERED: ISOVUE-370 76% 100 ML VIAL As Ordered ONE (00:58)
[2025-03-22] MEDS ORDERED: MOM 30 ML SUSPENSION UDC PO PRN (02:10)
[2025-03-22] MEDS ORDERED: MAALOX 30 ML SUSP *UDC PO PRN (02:10)
[2025-03-22] MEDS ORDERED: ACETAMINOPHEN 325 MG TAB PO PRN (02:10)
[2025-03-22] MEDS ORDERED: METO1TAB33 PO (02:29)
[2025-03-22] MEDS ORDERED: HOME MED LIST COMPLETE! XX SCH ×2 (02:40→17:40)
[2025-03-22] MEDS ORDERED: GLUCAGON INJ 1 MG VIAL SC PRN (06:50)
[2025-03-22] MEDS ORDERED: DEXTROSE 50% 50 ML SYRINGE IV PRN (06:50)
[2025-03-22] MEDS ORDERED: GLUCOSE 4 GM CHEW PO PRN (06:50)
[2025-03-22 07:05] LABS: PLATELET COUNT, AUTOMATED 212 10^3/uL (150-450)
[2025-03-22 07:48] LABS: ALT/SGPT 25 U/L (7.0-40); AST/SGOT 30 U/L (<34); CALCIUM LEVEL 8.1 MG/DL (8.5-10.1); CARBON DIOXIDE LEVEL 30 MMOL/L (20-31); CHLORIDE LEVEL 93 MMOL/L (98-107); CREATININE FOR GFR 5.67 MG/DL (0.70-1.30); GLOMERULAR FILTRATION RATE 11.2 (>56); MAGNESIUM LEVEL 2.0 MG/DL (1.8-2.4); POTASSIUM SERUM 4.2 MMOL/L (3.5-5.1); SODIUM LEVEL 137 MMOL/L (136-145)
[2025-03-22] MEDS ORDERED: LIDOCAINE 1% SDV 5 ML VIAL SC PRN (09:40)
[2025-03-22] MEDS ORDERED: HEPARIN 1,000 UNITS/ML 10 ML VIAL (FOR RADIOLOGY & DIALYSIS ONLY) IV PRN (09:40)
[2025-03-22] MEDS ORDERED: SODIUM CHLORIDE 0.9% 1000 ML IV PRN (09:40)
[2025-03-22] MEDS: HEPARIN SOD 5000 UNITS/ML 1 ML VIAL/SYRINGE SC SCH (09:46)
[2025-03-22] MEDS: DOCUSATE SODIUM 100 MG CAPSULE PO SCH (09:46)
[2025-03-22] MEDS: INSULIN LISPRO (NovoLOG) PER UNIT SC SCH (09:54)
[2025-03-22 10:55] LABS: HEPATITIS B SURFACE ANTIBODY POSITIVE (POSITIVE)
[2025-03-22 11:28] LABS: HEPATITIS C VIRUS ABY INDEX < 0.02 INDEX (<0.8)
[2025-03-22] MEDS: HEPARIN 1,000 UNITS/ML 10 ML VIAL (FOR RADIOLOGY & DIALYSIS ONLY) XX SCH (12:44)
[2025-03-22 15:45] VITALS: O2SAT 98
[2025-03-22 16:00] VITALS: BP 141/75; TEMP 96.8
[2025-03-22] MEDS ORDERED: NITROGLYCERIN 0.4 MG SUBL TABLET SL PRN (17:40)
[2025-03-22] MEDS: ISOSORBIDE MONONITRATE 30 MG XR TAB PO SCH (18:14)
[2025-03-22] MEDS: CLOPIDOGREL 75 MG TAB PO SCH (18:15)
[2025-03-22] MEDS: CALCITRIOL 0.25 MCG CAP (S0169) PO SCH (18:15)
[2025-03-22] MEDS: SEVELAMER *CARBONate* 800 MG TAB PO SCH (18:15)
[2025-03-22] MEDS: ATORVASTATIN 20 MG TAB PO SCH (18:16)
[2025-03-22] MEDS: PANTOPRAZOLE 40MG TAB PO SCH (18:21)
[2025-03-22 19:35] VITALS: BP 130/78; TEMP 97.3; O2SAT 94
[2025-03-22] MEDS: METOPROLOL SUCC. 100 MG *XL* TAB PO SCH (20:25)
[2025-03-22] MEDS: GABAPENTIN 100 MG CAP PO SCH (20:26)
[2025-03-22] MEDS ORDERED: DOCUSATE SODIUM 100 MG CAPSULE PO SCH (21:00)
[2025-03-23 03:54] VITALS: BP 101/57; TEMP 97.3; O2SAT 93
[2025-03-23 06:32] LABS: BASO # 0.1 10^3/uL (0.0-0.2); BASO % 0.6 % (0.0-1.0); EOS # 0.4 10^3/uL (0.0-0.5); EOS % 3.2 % (0.0-3.0); LYMPH # 1.6 10^3/uL (1.5-5.0); LYMPH % 14.3 % (24.0-44.0); MONO # 1.1 10^3/uL (0.0-0.8); MONO % 10.5 % (2.0-8.0); NEUTROPHILS # 7.7 10^3/uL (1.5-8.5); NEUTROPHILS % 70.8 % (36.0-66.0); PLATELET COUNT, AUTOMATED 227 10^3/uL (150-450)
[2025-03-23 06:50] LABS: ALT/SGPT 21.0 U/L (7.0-40); AST/SGOT 20.0 U/L (<34); CALCIUM LEVEL 8.9 MG/DL (8.5-10.1); CARBON DIOXIDE LEVEL 25.0 MMOL/L (20-31); CHLORIDE LEVEL 100.0 MMOL/L (98-107); CREATININE FOR GFR 5.64 MG/DL (0.70-1.30); GLOMERULAR FILTRATION RATE 11.3 (>56); POTASSIUM SERUM 4.3 MMOL/L (3.5-5.1); SODIUM LEVEL 139.0 MMOL/L (136-145)
[2025-03-23 10:05] VITALS: BP 119/64
[2025-03-23 12:00] VITALS: BP 115/64; TEMP 97.8; O2SAT 96
[2025-03-23] MEDS ORDERED: LORA-1164 PO (12:22)
[2025-03-23] MEDS ORDERED: TUSS15SY2 PO (12:22)
[2025-03-23 15:37] VITALS: BP 99/53; TEMP 98.4; O2SAT 92
[2025-03-23] MEDS ORDERED: ceFAZolin SODIUM 2 GM in DEXTROSE 5% (D5W) ADV/MINI-BAG 50 ML IV ONE (15:50)
[2025-03-23] MEDS ORDERED: NS (Normal Saline) 0.9% 1,000 ML IV SCH (15:50)
[2025-03-23] MEDS ORDERED: MIDAZOLAM INJ 2 MG/2 ML VIAL IV PRN (16:15)
[2025-03-23] MEDS: ceFAZolin SOD 3 GM in DEXTROSE 5% (D5W) MINI-BAG PLU 1... IV ONE (16:33)
[2025-03-23] MEDS: LIDOCAINE 1% MDV 20 ML VIAL SC SCH (16:59)
== END 2025-03-23 17:20 | disposition home or self-care (01) ==
LOC: M ED 17:03 → M ED INP 17:04 → M MS5PR 03-22 11:35
PROVIDERS: ADMIT Student in an Organized Health Care Education/Training Program; ATTEND Internal Medicine Nephrology
DX: I50.33 Acute on chronic diastolic (congestive) heart failure (principal); R09.02 Hypoxemia; N18.6 End stage renal disease; I12.0 Hypertensive chronic kidney disease with stage 5 chronic kidney disease or end stage renal disease; E11.319 Type 2 diabetes mellitus with unspecified diabetic retinopathy without macular edema; D72.829 Elevated white blood cell count, unspecified; E11.21 Type 2 diabetes mellitus with diabetic nephropathy; E11.40 Type 2 diabetes mellitus with diabetic neuropathy, unspecified; I25.10 Atherosclerotic heart disease of native coronary artery without angina pectoris; Z95.1 Presence of aortocoronary bypass graft; Z98.61 Coronary angioplasty status; D64.9 Anemia, unspecified; Z79.4 Long term (current) use of insulin; Z79.899 Other long term (current) drug therapy; F41.9 Anxiety disorder, unspecified; K21.9 Gastro-esophageal reflux disease without esophagitis; Z86.711 Personal history of pulmonary embolism; Z86.718 Personal history of other venous thrombosis and embolism; N40.0 Benign prostatic hyperplasia without lower urinary tract symptoms
CPT/HCPCS: 36415; 36589; 71046; 71250; 71275; 80053; 82550; 82553; 83605; 83690; 83735; 83880; 84145; 84484; 85025; 85027; 86704; 86705; 86706; 86803; 87340; 87486; 87581; 87633; 87798; 93005; 93308; 96372; 96374; 96376; 99285; J0690; J1815; Q9967

== ENCOUNTER 2025-04-13 09:04 | Outpatient (RCR) | payer OTHER ==
[~2025-04-13 09:04] MED LIST changes: +LORA-1164 PO; +METO1TAB33 PO; +TIRZ2.5P PO; +TUSS15SY2 PO
[2025-04-14] MEDS ORDERED: DOXY-441 PO (06:33)
== END 2025-05-10 ==
LOC: M PT 09:04
PROVIDERS: ATTEND Student in an Organized Health Care Education/Training Program
DX: Z89.511 Acquired absence of right leg below knee (principal)

== ENCOUNTER 2025-04-14 03:14 | Emergency (ER) | payer OTHER ==
[~2025-04-14] VITALS: Ht 182.9 cm; Wt 127.2 kg
[2025-04-14 03:18] VITALS: TEMP 97
[2025-04-14] MEDS ORDERED: LEVALBUTEROL 1.25 MG 0.5ML CONCENTRATE NEB NEB ONE ×3 (03:55)
[2025-04-14 03:57] LABS: BASO # 0.1 10^3/uL (0.0-0.2); BASO % 0.4 % (0.0-1.0); EOS # 0.3 10^3/uL (0.0-0.5); EOS % 2.4 % (0.0-3.0); LYMPH # 1.4 10^3/uL (1.5-5.0); LYMPH % 11.8 % (24.0-44.0); MONO # 0.8 10^3/uL (0.0-0.8); MONO % 6.8 % (2.0-8.0); NEUTROPHILS # 9.0 10^3/uL (1.5-8.5); NEUTROPHILS % 78.2 % (36.0-66.0); PLATELET COUNT, AUTOMATED 212 10^3/uL (150-450)
[2025-04-14 04:09] VITALS: O2SAT 97
[2025-04-14] MEDS: NITROGLYCERIN 2% OINT 1 GM *U/D* PKT TOP ONE (04:16)
[2025-04-14 04:29] LABS: ALT/SGPT 19 U/L (7.0-40); AST/SGOT 23 U/L (<34); CALCIUM LEVEL 8.3 MG/DL (8.5-10.1); CARBON DIOXIDE LEVEL 21 MMOL/L (20-31); CHLORIDE LEVEL 96 MMOL/L (98-107); CK-MB VALUE MASS 7.1 NG/ML (<3.6); CPK CREATINE PHOSPHOKINASE 206 U/L (46-171); CREATININE FOR GFR 8.84 MG/DL (0.70-1.30); GLOMERULAR FILTRATION RATE 6.6 (>56); MB/CK RELATIVE INDEX 3.44 (< OR =4); POTASSIUM SERUM 4.4 MMOL/L (3.5-5.1); SODIUM LEVEL 135 MMOL/L (136-145)
[2025-04-14 05:09] VITALS: BP 183/96
[2025-04-14] MEDS: **hydrALAZINE** 50 MG TAB PO ONE (05:09)
[2025-04-14 05:36] VITALS: BP 176/91
[2025-04-14 05:48] LABS: CK-MB VALUE MASS 7.7 NG/ML (<3.6)
[2025-04-14 05:51] LABS: CPK CREATINE PHOSPHOKINASE 206.0 U/L (46-171); MB/CK RELATIVE INDEX 3.73 (< OR =4)
[2025-04-14] MEDS: HumuLIN R (REGULAR) INSULIN (NovoLIN R) **100 U/ML** PER UNIT SC STA (06:30)
[2025-04-14] MEDS ORDERED: DOXY-441 PO (06:33)
[2025-04-14] MEDS: DOXYCYCLINE HYCLATE 100 MG TABLET PO ONE (06:38)
== END 2025-04-14 06:54 | disposition home or self-care (01) ==
LOC: M ED 03:14
DX: J18.9 Pneumonia, unspecified organism (principal); I16.0 Hypertensive urgency; E87.70 Fluid overload, unspecified; R00.0 Tachycardia, unspecified; I45.10 Unspecified right bundle-branch block; E10.9 Type 1 diabetes mellitus without complications; I10 Essential (primary) hypertension; I25.2 Old myocardial infarction; E78.5 Hyperlipidemia, unspecified; Z86.73 Personal history of transient ischemic attack (TIA), and cerebral infarction without residual deficits; Z86.718 Personal history of other venous thrombosis and embolism; Z86.79 Personal history of other diseases of the circulatory system
CPT/HCPCS: 71045; 80048; 80076; 82550; 82553; 83880; 84484; 85025; 93005; 93041; 94760; 96372; 99284; J1815

== ENCOUNTER 2025-05-25 15:20 | Emergency (ER) | payer OTHER ==
[~2025-05-25] VITALS: Ht 182.9 cm; Wt 124.8 kg
[~2025-05-25 15:20] MED LIST changes: +DOXY-441 PO
[2025-05-25 18:19] LABS: BASO # 0.1 10^3/uL (0.0-0.2); BASO % 0.6 % (0.0-1.0); EOS # 0.4 10^3/uL (0.0-0.5); EOS % 2.8 % (0.0-3.0); LYMPH # 1.5 10^3/uL (1.5-5.0); LYMPH % 11.1 % (24.0-44.0); MONO # 0.9 10^3/uL (0.0-0.8); MONO % 6.4 % (2.0-8.0); NEUTROPHILS # 10.7 10^3/uL (1.5-8.5); NEUTROPHILS % 78.7 % (36.0-66.0); PLATELET COUNT, AUTOMATED 228 10^3/uL (150-450)
[2025-05-25 18:29] LABS: INR 0.96
[2025-05-25 18:40] LABS: C REACTIVE PROTEIN QUANTITATIV 4.73 MG/DL (<1.0)
[2025-05-25 18:51] LABS: ALT/SGPT 27 U/L (7.0-40); AST/SGOT 30 U/L (<34); CALCIUM LEVEL 8.3 MG/DL (8.5-10.1); CARBON DIOXIDE LEVEL 28 MMOL/L (20-31); CHLORIDE LEVEL 95 MMOL/L (98-107); CREATININE FOR GFR 8.38 MG/DL (0.70-1.30); GLOMERULAR FILTRATION RATE 7.0 (>56); POTASSIUM SERUM 5.4 MMOL/L (3.5-5.1); SODIUM LEVEL 133 MMOL/L (136-145)
[2025-05-25 20:58] VITALS: BP 182/98; TEMP 98.2; O2SAT 96
[2025-05-25] MEDS ORDERED: ASPI81CH33 PO (20:58)
[2025-05-25] MEDS: ASPIRIN 81 MG CHEWABLE TABLET PO ONE (21:10)
== END 2025-05-25 21:15 | disposition home or self-care (01) ==
LOC: M ED 15:20
DX: I82.611 Acute embolism and thrombosis of superficial veins of right upper extremity (principal); S50.11XA Contusion of right forearm, initial encounter; I45.81 Long QT syndrome; E11.9 Type 2 diabetes mellitus without complications; K21.9 Gastro-esophageal reflux disease without esophagitis; N18.4 Chronic kidney disease, stage 4 (severe); I10 Essential (primary) hypertension; Z86.79 Personal history of other diseases of the circulatory system; Z86.73 Personal history of transient ischemic attack (TIA), and cerebral infarction without residual deficits; Z79.82 Long term (current) use of aspirin; Z79.02 Long term (current) use of antithrombotics/antiplatelets; Z79.4 Long term (current) use of insulin; Z79.899 Other long term (current) drug therapy; Y92.009 Unspecified place in unspecified non-institutional (private) residence as the place of occurrence of the external cause; Y93.89 Activity, other specified; Y99.9 Unspecified external cause status

== ENCOUNTER → 2025-06-17 | Outpatient (CLI) | payer OTHER ==
[~2025-06-17] MED LIST changes: +ASPI81CH33 PO
== END ==
LOC: M RAD 12:20
PROVIDERS: ATTEND Surgery
DX: E11.621 Type 2 diabetes mellitus with foot ulcer (principal); L97.522 Non-pressure chronic ulcer of other part of left foot with fat layer exposed; S61.402A Unspecified open wound of left hand, initial encounter; I87.312 Chronic venous hypertension (idiopathic) with ulcer of left lower extremity; I10 Essential (primary) hypertension; R68.89 Other general symptoms and signs; Z79.82 Long term (current) use of aspirin; I73.9 Peripheral vascular disease, unspecified; Z79.899 Other long term (current) drug therapy; Z79.02 Long term (current) use of antithrombotics/antiplatelets; Z79.83 Long term (current) use of bisphosphonates

== ENCOUNTER 2025-08-17 10:18 | Inpatient (IN) | payer MEDICAID, MEDICARE, OTHER, SELFPAY ==
[~2025-08-17] VITALS: Ht 182.9 cm; Wt 127.2 kg
[~2025-08-17 10:18] MED LIST changes: -CYCL5TAB4 PO; -MINO10TA PO; -NITR0.4S14 SL; -REPA140I2 SC; -SANT250O8 TOP; -TALK1KIT MC
[2025-08-17 10:59] LABS: BASO # 0.1 10^3/uL (0.0-0.2); BASO % 0.8 % (0.0-1.0); EOS # 0.3 10^3/uL (0.0-0.5); EOS % 2.3 % (0.0-3.0); LYMPH # 1.0 10^3/uL (1.5-5.0); LYMPH % 8.4 % (24.0-44.0); MONO # 0.7 10^3/uL (0.0-0.8); MONO % 6.3 % (2.0-8.0); NEUTROPHILS # 9.5 10^3/uL (1.5-8.5); NEUTROPHILS % 81.9 % (36.0-66.0); PLATELET COUNT, AUTOMATED 271 10^3/uL (150-450)
[2025-08-17 11:33] LABS: ALT/SGPT 36.0 U/L (7.0-40); AST/SGOT 45.0 U/L (<34); CALCIUM LEVEL 8.1 MG/DL (8.5-10.1); CARBON DIOXIDE LEVEL 25.0 MMOL/L (20-31); CHLORIDE LEVEL 97.0 MMOL/L (98-107); CREATININE FOR GFR 7.31 MG/DL (0.70-1.30); GLOMERULAR FILTRATION RATE 8.3 (>56); POTASSIUM SERUM 5.5 MMOL/L (3.5-5.1); SODIUM LEVEL 137.0 MMOL/L (136-145)
[2025-08-17] MEDS: **hydrALAZINE** 50 MG TAB PO ONE (13:09)
[2025-08-17] MEDS ORDERED: ISOVUE-370 76% 100 ML VIAL As Ordered ONE (13:23)
[2025-08-17] MEDS: HumuLIN R (REGULAR) INSULIN (NovoLIN R) **100 U/ML** PER UNIT SC STA (13:27)
[2025-08-17] MEDS ORDERED: MINO10TA PO (14:14)
[2025-08-17] MEDS ORDERED: REPA140I2 SC (14:14)
[2025-08-17] MEDS ORDERED: NITR0.4S14 SL (14:14)
[2025-08-17] MEDS ORDERED: SANT250O8 TOP (14:14)
[2025-08-17] MEDS ORDERED: ASPI81CH33 PO (14:15)
[2025-08-17] MEDS ORDERED: HOME MED LIST COMPLETE! XX SCH (14:15)
[2025-08-17] MEDS: INSULIN LISPRO (NovoLOG) PER UNIT SC SCH ×3 (15:37→20:35)
[2025-08-17] MEDS ORDERED: GLUCAGON INJ 1 MG VIAL SC PRN (16:40)
[2025-08-17] MEDS ORDERED: DEXTROSE 50% 50 ML SYRINGE IV PRN (16:40)
[2025-08-17] MEDS ORDERED: GLUCOSE 4 GM CHEW PO PRN (16:40)
[2025-08-17] MEDS: FUROSEMIDE 100 MG/10 ML VIAL IV ONE (17:09)
[2025-08-17] MEDS: METOPROLOL SUCC. 100 MG *XL* TAB PO SCH (20:34)
[2025-08-17] MEDS: GABAPENTIN 100 MG CAP PO SCH (20:35)
[2025-08-17] MEDS: **hydrALAZINE** 50 MG TAB PO SCH (20:37)
[2025-08-18] MEDS: ACETAMINOPHEN 325 MG TAB PO PRN (00:15)
[2025-08-18] MEDS ORDERED: LIDOCAINE 1% SDV 5 ML VIAL SC PRN (08:20)
[2025-08-18] MEDS ORDERED: SODIUM CHLORIDE 0.9% 1000 ML IV PRN (08:20)
[2025-08-18] MEDS ORDERED: HEPARIN 1,000 UNITS/ML 10 ML VIAL (FOR RADIOLOGY & DIALYSIS ONLY) IV PRN (08:20)
[2025-08-18] MEDS ORDERED: HEPARIN 1,000 UNITS/ML 10 ML VIAL (FOR RADIOLOGY & DIALYSIS ONLY) XX SCH (08:20)
[2025-08-18] MEDS: GABAPENTIN 100 MG CAP PO ONE (09:00)
[2025-08-18] MEDS: CLOPIDOGREL 75 MG TAB PO SCH (09:41)
[2025-08-18] MEDS: ASPIRIN 81 MG CHEWABLE TABLET PO SCH (09:41)
[2025-08-18] MEDS: PANTOPRAZOLE 40MG TAB PO SCH (09:41)
[2025-08-18] MEDS: ATORVASTATIN 20 MG TAB PO SCH (09:43)
[2025-08-18] MEDS: HEPARIN SOD 5000 UNITS/ML 1 ML VIAL/SYRINGE SQ SCH (09:44)
[2025-08-18] MEDS: SEVELAMER *CARBONate* 800 MG TAB PO SCH (10:04)
[2025-08-18 11:33] LABS: BASO # 0.1 10^3/uL (0.0-0.2); BASO % 0.5 % (0.0-1.0); EOS # 0.4 10^3/uL (0.0-0.5); EOS % 3.6 % (0.0-3.0); LYMPH # 1.0 10^3/uL (1.5-5.0); LYMPH % 8.4 % (24.0-44.0); MONO # 0.8 10^3/uL (0.0-0.8); MONO % 6.7 % (2.0-8.0); NEUTROPHILS # 9.1 10^3/uL (1.5-8.5); NEUTROPHILS % 80.4 % (36.0-66.0); PLATELET COUNT, AUTOMATED 239 10^3/uL (150-450)
[2025-08-18 11:56] LABS: ESTIMATED AVERAGE GLUCOSE 326.0 MG/DL (60-110)
[2025-08-18 11:57] LABS: CALCIUM LEVEL 8.0 MG/DL (8.5-10.1); CARBON DIOXIDE LEVEL 27.0 MMOL/L (20-31); CHLORIDE LEVEL 95.0 MMOL/L (98-107); CHOLESTEROL LEVEL 143.0 MG/DL (<200); CHOLESTEROL RISK RATIO 5.72 (<5); CREATININE FOR GFR 8.97 MG/DL (0.70-1.30); GLOMERULAR FILTRATION RATE 6.5 (>56); LDL CHOLESTEROL 89.2 MG/DL (<100); NON-HDL-C 118.0 MG/DL; POTASSIUM SERUM 4.9 MMOL/L (3.5-5.1); SODIUM LEVEL 135.0 MMOL/L (136-145); TRIGLYCERIDES LEVEL 144.0 MG/DL (<150)
[2025-08-18 12:00] VITALS: BP 99/53; TEMP 97.2; O2SAT 95
[2025-08-18] MEDS ORDERED: TALK1KIT MC (15:59)
[2025-08-18] MEDS ORDERED: MINO2.5T PO (15:59)
[2025-08-18 17:30] VITALS: BP 97/56; TEMP 97.2; O2SAT 95
[2025-08-18 17:58] VITALS: BP 100/59; TEMP 97.3; O2SAT 95
[2025-08-18 19:51] VITALS: BP 115/53; TEMP 98.2; O2SAT 96
[2025-08-18 23:41] VITALS: BP 84/48; TEMP 98.1; O2SAT 93
[2025-08-18 23:44] VITALS: BP 84/48; TEMP 98; O2SAT 92
[2025-08-19] VITALS (10 sets, daily range): BP systolic 78–125; BP diastolic 48–84; TEMP 97.4–98.1; O2SAT 91–98
[2025-08-19] MEDS: NS 500 ML IV ONE ×3 (00:16→05:29)
[2025-08-19] MEDS: ACETAMINOPHEN *IV* 1,000 MG in IV 1 EA IV ONE (01:00)
[2025-08-19] MEDS: diphenhydrAMINE 50 MG/ML VIAL IV ONE (03:39)
[2025-08-19] MEDS: MIDODRINE 5 MG TAB PO ONE (05:19)
[2025-08-19] MEDS: LIDOCAINE 5% PATCH TD SCH (13:20)
[2025-08-19] MEDS: CYCLOBENZAPRINE 10 MG TABLET PO ONE (13:20)
[2025-08-19 13:31] LABS: BASO # 0.1 10^3/uL (0.0-0.2); BASO % 0.4 % (0.0-1.0); EOS # 0.2 10^3/uL (0.0-0.5); EOS % 1.5 % (0.0-3.0); LYMPH # 1.1 10^3/uL (1.5-5.0); LYMPH % 8.8 % (24.0-44.0); MONO # 1.0 10^3/uL (0.0-0.8); MONO % 7.8 % (2.0-8.0); NEUTROPHILS # 10.2 10^3/uL (1.5-8.5); NEUTROPHILS % 81.2 % (36.0-66.0); PLATELET COUNT, AUTOMATED 258 10^3/uL (150-450)
[2025-08-19 14:01] LABS: C REACTIVE PROTEIN QUANTITATIV 4.87 MG/DL (<1.0); CALCIUM LEVEL 7.6 MG/DL (8.5-10.1); CARBON DIOXIDE LEVEL 25.0 MMOL/L (20-31); CHLORIDE LEVEL 102.0 MMOL/L (98-107); CREATININE FOR GFR 7.24 MG/DL (0.70-1.30); GLOMERULAR FILTRATION RATE 8.4 (>56); POTASSIUM SERUM 5.2 MMOL/L (3.5-5.1); SODIUM LEVEL 136.0 MMOL/L (136-145)
[2025-08-19] MEDS: LanTUS (INSULIN GLARGINE INJ) 1 UNITS/0.01 ML SC SCH (21:04)
[2025-08-19] MEDS: CYCLOBENZAPRINE 10 MG TABLET PO PRN (21:05)
[2025-08-20 03:28] VITALS: BP 98/57; TEMP 97.9; O2SAT 92
[2025-08-20 06:46] LABS: BASO # 0.1 10^3/uL (0.0-0.2); BASO % 0.5 % (0.0-1.0); EOS # 0.2 10^3/uL (0.0-0.5); EOS % 2.0 % (0.0-3.0); LYMPH # 1.4 10^3/uL (1.5-5.0); LYMPH % 13.8 % (24.0-44.0); MONO # 1.0 10^3/uL (0.0-0.8); MONO % 10.0 % (2.0-8.0); NEUTROPHILS # 7.4 10^3/uL (1.5-8.5); NEUTROPHILS % 73.3 % (36.0-66.0); PLATELET COUNT, AUTOMATED 216 10^3/uL (150-450)
[2025-08-20 07:12] LABS: CALCIUM LEVEL 7.7 MG/DL (8.5-10.1); CARBON DIOXIDE LEVEL 21.0 MMOL/L (20-31); CHLORIDE LEVEL 101.0 MMOL/L (98-107); CREATININE FOR GFR 8.78 MG/DL (0.70-1.30); GLOMERULAR FILTRATION RATE 6.6 (>56); POTASSIUM SERUM 5.3 MMOL/L (3.5-5.1); SODIUM LEVEL 136.0 MMOL/L (136-145)
[2025-08-20] MEDS ORDERED: LIDOCAINE 1% SDV 5 ML VIAL SC PRN (07:30)
[2025-08-20] MEDS ORDERED: SODIUM CHLORIDE 0.9% 1000 ML IV PRN (07:30)
[2025-08-20] MEDS ORDERED: HEPARIN 1,000 UNITS/ML 10 ML VIAL (FOR RADIOLOGY & DIALYSIS ONLY) IV PRN (07:30)
[2025-08-20 08:37] LABS: C REACTIVE PROTEIN QUANTITATIV 4.86 MG/DL (<1.0)
[2025-08-20] MEDS: HEPARIN 1,000 UNITS/ML 10 ML VIAL (FOR RADIOLOGY & DIALYSIS ONLY) XX SCH (10:18)
[2025-08-20 12:46] VITALS: BP 98/52; TEMP 97.6; O2SAT 94
[2025-08-20] MEDS: LanTUS (INSULIN GLARGINE INJ) 1 UNITS/0.01 ML SC ONE (12:49)
[2025-08-20] MEDS: MIDODRINE 5 MG TAB PO ONE (12:50)
[2025-08-20] MEDS: INSULIN LISPRO (NovoLOG) PER UNIT SC SCH (14:17)
[2025-08-20 16:00] VITALS: BP 112/58; TEMP 97.4; O2SAT 96
[2025-08-20 19:47] VITALS: BP 98/59; TEMP 98.4; O2SAT 91
[2025-08-20] MEDS: CYCLOBENZAPRINE 10 MG TABLET PO PRN (21:41)
[2025-08-20 23:33] VITALS: BP 105/57; TEMP 98.6; O2SAT 90
[2025-08-21 04:03] VITALS: BP 109/59; TEMP 97.7; O2SAT 91
[2025-08-21 06:00] LABS: BASO # 0.1 10^3/uL (0.0-0.2); BASO % 0.4 % (0.0-1.0); EOS # 0.3 10^3/uL (0.0-0.5); EOS % 2.3 % (0.0-3.0); LYMPH # 1.3 10^3/uL (1.5-5.0); LYMPH % 11.1 % (24.0-44.0); MONO # 1.2 10^3/uL (0.0-0.8); MONO % 10.4 % (2.0-8.0); NEUTROPHILS # 8.5 10^3/uL (1.5-8.5); NEUTROPHILS % 75.4 % (36.0-66.0); PLATELET COUNT, AUTOMATED 215 10^3/uL (150-450)
[2025-08-21 06:29] LABS: CALCIUM LEVEL 7.9 MG/DL (8.5-10.1); CARBON DIOXIDE LEVEL 24.0 MMOL/L (20-31); CHLORIDE LEVEL 102.0 MMOL/L (98-107); CREATININE FOR GFR 6.75 MG/DL (0.70-1.30); GLOMERULAR FILTRATION RATE 9.1 (>56); POTASSIUM SERUM 4.9 MMOL/L (3.5-5.1); SODIUM LEVEL 137.0 MMOL/L (136-145)
[2025-08-21 08:36] VITALS: BP 110/66; TEMP 97.2; O2SAT 91
[2025-08-21] MEDS: MIDODRINE 5 MG TAB PO SCH (12:53)
[2025-08-21 16:00] VITALS: BP 110/56
[2025-08-21 16:18] VITALS: BP 121/60; TEMP 97.7; O2SAT 96
[2025-08-21 20:01] VITALS: BP 120/54; TEMP 97.2; O2SAT 94
[2025-08-21] MEDS: LanTUS (INSULIN GLARGINE INJ) 1 UNITS/0.01 ML SC SCH (20:43)
[2025-08-22 04:56] VITALS: BP 138/78; TEMP 97.8; O2SAT 91
[2025-08-22] MEDS ORDERED: SODIUM CHLORIDE 0.9% 1000 ML IV PRN (06:00)
[2025-08-22] MEDS ORDERED: HEPARIN 1,000 UNITS/ML 10 ML VIAL (FOR RADIOLOGY & DIALYSIS ONLY) IV PRN (06:00)
[2025-08-22] MEDS ORDERED: LIDOCAINE 1% SDV 5 ML VIAL SC PRN (06:00)
[2025-08-22 06:10] LABS: BASO # 0.1 10^3/uL (0.0-0.2); BASO % 0.7 % (0.0-1.0); EOS # 0.3 10^3/uL (0.0-0.5); EOS % 2.8 % (0.0-3.0); LYMPH # 1.2 10^3/uL (1.5-5.0); LYMPH % 10.5 % (24.0-44.0); MONO # 1.0 10^3/uL (0.0-0.8); MONO % 9.1 % (2.0-8.0); NEUTROPHILS # 8.5 10^3/uL (1.5-8.5); NEUTROPHILS % 76.5 % (36.0-66.0); PLATELET COUNT, AUTOMATED 230 10^3/uL (150-450)
[2025-08-22 06:54] LABS: CALCIUM LEVEL 8.2 MG/DL (8.5-10.1); CARBON DIOXIDE LEVEL 24.0 MMOL/L (20-31); CHLORIDE LEVEL 101.0 MMOL/L (98-107); CREATININE FOR GFR 8.92 MG/DL (0.70-1.30); GLOMERULAR FILTRATION RATE 6.5 (>56); POTASSIUM SERUM 5.6 MMOL/L (3.5-5.1); SODIUM LEVEL 137.0 MMOL/L (136-145)
[2025-08-22] MEDS: HEPARIN 1,000 UNITS/ML 10 ML VIAL (FOR RADIOLOGY & DIALYSIS ONLY) XX SCH (09:39)
[2025-08-22] MEDS: LIDOCAINE 5% PATCH TD SCH (09:48)
[2025-08-22] MEDS ORDERED: NALOXONE INJ 0.4 MG/1 ML VIAL IV PRN (11:55)
[2025-08-22 12:00] VITALS: BP 141/75; TEMP 97.6; O2SAT 93
[2025-08-22] MEDS: PERCOCET 5MG/325MG TAB PO ONE (13:13)
[2025-08-22] MEDS: LACTULOSE 20 GM/30 ML SYRUP UDC PO ONE (13:13)
[2025-08-22] MEDS: SENNOSIDES/DOCUSATE SODIUM 8.6 MG/50MG TAB PO SCH (13:15)
[2025-08-22 20:12] VITALS: BP 132/70; TEMP 98; O2SAT 90
[2025-08-23 03:24] VITALS: BP 124/59; TEMP 98.2; O2SAT 90
[2025-08-23 06:15] LABS: BASO # 0.1 10^3/uL (0.0-0.2); BASO % 0.6 % (0.0-1.0); EOS # 0.4 10^3/uL (0.0-0.5); EOS % 3.8 % (0.0-3.0); LYMPH # 1.0 10^3/uL (1.5-5.0); LYMPH % 9.6 % (24.0-44.0); MONO # 0.9 10^3/uL (0.0-0.8); MONO % 8.7 % (2.0-8.0); NEUTROPHILS # 7.7 10^3/uL (1.5-8.5); NEUTROPHILS % 77.0 % (36.0-66.0); PLATELET COUNT, AUTOMATED 238 10^3/uL (150-450)
[2025-08-23 06:34] LABS: CALCIUM LEVEL 8.2 MG/DL (8.5-10.1); CARBON DIOXIDE LEVEL 24.0 MMOL/L (20-31); CHLORIDE LEVEL 101.0 MMOL/L (98-107); CREATININE FOR GFR 6.93 MG/DL (0.70-1.30); GLOMERULAR FILTRATION RATE 8.8 (>56); POTASSIUM SERUM 5.1 MMOL/L (3.5-5.1); SODIUM LEVEL 136.0 MMOL/L (136-145)
[2025-08-23] MEDS: GABAPENTIN 100 MG CAP PO SCH (10:12)
[2025-08-23 20:48] VITALS: BP 151/81; TEMP 98.2; O2SAT 89
[2025-08-24 03:26] VITALS: BP 122/64; TEMP 98; O2SAT 94
[2025-08-24] MEDS ORDERED: HEPARIN 1,000 UNITS/ML 10 ML VIAL (FOR RADIOLOGY & DIALYSIS ONLY) IV PRN (06:00)
[2025-08-24] MEDS ORDERED: HEPARIN 1,000 UNITS/ML 10 ML VIAL (FOR RADIOLOGY & DIALYSIS ONLY) XX SCH (06:00)
[2025-08-24] MEDS ORDERED: SODIUM CHLORIDE 0.9% 1000 ML IV PRN (06:00)
[2025-08-24] MEDS ORDERED: LIDOCAINE 1% SDV 5 ML VIAL SC PRN (06:00)
[2025-08-24 07:54] LABS: BASO # 0.0 10^3/uL (0.0-0.2); BASO % 0.4 % (0.0-1.0); EOS # 0.4 10^3/uL (0.0-0.5); EOS % 4.1 % (0.0-3.0); LYMPH # 1.2 10^3/uL (1.5-5.0); LYMPH % 11.8 % (24.0-44.0); MONO # 1.0 10^3/uL (0.0-0.8); MONO % 9.5 % (2.0-8.0); NEUTROPHILS # 7.6 10^3/uL (1.5-8.5); NEUTROPHILS % 73.8 % (36.0-66.0); PLATELET COUNT, AUTOMATED 256 10^3/uL (150-450)
[2025-08-24 08:16] LABS: CALCIUM LEVEL 8.3 MG/DL (8.5-10.1); CARBON DIOXIDE LEVEL 24.0 MMOL/L (20-31); CHLORIDE LEVEL 103.0 MMOL/L (98-107); CREATININE FOR GFR 8.91 MG/DL (0.70-1.30); GLOMERULAR FILTRATION RATE 6.5 (>56); POTASSIUM SERUM 5.3 MMOL/L (3.5-5.1); SODIUM LEVEL 139.0 MMOL/L (136-145)
[2025-08-24] MEDS: PERCOCET 5MG/325MG TAB PO ONE (13:38)
[2025-08-24] MEDS: GABAPENTIN 100 MG CAP PO ONE (13:55)
[2025-08-24] MEDS: GABAPENTIN 100 MG CAP PO SCH (16:24)
[2025-08-24 20:26] VITALS: BP 130/71; TEMP 97.6; O2SAT 100
[2025-08-25 04:09] VITALS: BP 128/58; TEMP 98.2; O2SAT 92
[2025-08-25] MEDS ORDERED: SODIUM CHLORIDE 0.9% 1000 ML IV PRN (06:00)
[2025-08-25] MEDS ORDERED: HEPARIN 1,000 UNITS/ML 10 ML VIAL (FOR RADIOLOGY & DIALYSIS ONLY) XX SCH (06:00)
[2025-08-25] MEDS ORDERED: LIDOCAINE 1% SDV 5 ML VIAL SC PRN (06:00)
[2025-08-25] MEDS ORDERED: HEPARIN 1,000 UNITS/ML 10 ML VIAL (FOR RADIOLOGY & DIALYSIS ONLY) IV PRN (06:00)
[2025-08-25 06:23] LABS: BASO # 0.1 10^3/uL (0.0-0.2); BASO % 0.5 % (0.0-1.0); EOS # 0.4 10^3/uL (0.0-0.5); EOS % 3.5 % (0.0-3.0); LYMPH # 0.9 10^3/uL (1.5-5.0); LYMPH % 8.4 % (24.0-44.0); MONO # 1.1 10^3/uL (0.0-0.8); MONO % 10.4 % (2.0-8.0); NEUTROPHILS # 8.0 10^3/uL (1.5-8.5); NEUTROPHILS % 76.9 % (36.0-66.0); PLATELET COUNT, AUTOMATED 246 10^3/uL (150-450)
[2025-08-25 06:51] LABS: CALCIUM LEVEL 8.0 MG/DL (8.5-10.1); CARBON DIOXIDE LEVEL 28.0 MMOL/L (20-31); CHLORIDE LEVEL 98.0 MMOL/L (98-107); CREATININE FOR GFR 6.46 MG/DL (0.70-1.30); GLOMERULAR FILTRATION RATE 9.6 (>56); POTASSIUM SERUM 4.7 MMOL/L (3.5-5.1); SODIUM LEVEL 137.0 MMOL/L (136-145)
[2025-08-25 13:19] VITALS: BP 142/74; TEMP 97.5; O2SAT 90
[2025-08-25 20:45] VITALS: BP 108/58; TEMP 97.6; O2SAT 91
[2025-08-25 21:00] VITALS: BP 108/58
[2025-08-26 03:23] VITALS: BP 135/68; TEMP 98.6; O2SAT 92
[2025-08-26] MEDS ORDERED: SODIUM CHLORIDE 0.9% 1000 ML IV PRN (06:00)
[2025-08-26] MEDS ORDERED: HEPARIN 1,000 UNITS/ML 10 ML VIAL (FOR RADIOLOGY & DIALYSIS ONLY) IV PRN (06:00)
[2025-08-26] MEDS ORDERED: LIDOCAINE 1% SDV 5 ML VIAL SC PRN (06:00)
[2025-08-26 07:31] LABS: CALCIUM LEVEL 8.2 MG/DL (8.5-10.1); CARBON DIOXIDE LEVEL 30.0 MMOL/L (20-31); CHLORIDE LEVEL 98.0 MMOL/L (98-107); CREATININE FOR GFR 5.67 MG/DL (0.70-1.30); GLOMERULAR FILTRATION RATE 11.2 (>56); POTASSIUM SERUM 4.2 MMOL/L (3.5-5.1); SODIUM LEVEL 139.0 MMOL/L (136-145)
[2025-08-26] MEDS: HEPARIN 1,000 UNITS/ML 10 ML VIAL (FOR RADIOLOGY & DIALYSIS ONLY) XX SCH (10:20)
[2025-08-26] MEDS ORDERED: CYCL5TAB4 PO (10:55)
[2025-08-26 12:27] VITALS: BP 125/66; TEMP 97.3; O2SAT 92
== END 2025-08-26 14:05 | disposition home or self-care (01) | DRG 304 ==
LOC: M ED 10:18 → M ED INP 16:39 → M PCU 08-18 17:28 → M MSPAV 08-21 16:14
PROVIDERS: ADMIT Internal Medicine Nephrology; ATTEND Internal Medicine
DX: I16.9 Hypertensive crisis, unspecified (principal); N18.6 End stage renal disease; I50.33 Acute on chronic diastolic (congestive) heart failure; J96.01 Acute respiratory failure with hypoxia; I13.2 Hypertensive heart and chronic kidney disease with heart failure and with stage 5 chronic kidney disease, or end stage renal disease; E11.22 Type 2 diabetes mellitus with diabetic chronic kidney disease; E11.51 Type 2 diabetes mellitus with diabetic peripheral angiopathy without gangrene; E11.40 Type 2 diabetes mellitus with diabetic neuropathy, unspecified; D64.9 Anemia, unspecified; I95.2 Hypotension due to drugs; I25.10 Atherosclerotic heart disease of native coronary artery without angina pectoris; Z89.511 Acquired absence of right leg below knee; I11.0 Hypertensive heart disease with heart failure; E78.5 Hyperlipidemia, unspecified; E66.9 Obesity, unspecified; G89.29 Other chronic pain; K21.9 Gastro-esophageal reflux disease without esophagitis; Z79.82 Long term (current) use of aspirin; Z79.899 Other long term (current) drug therapy; Z79.4 Long term (current) use of insulin; Z95.1 Presence of aortocoronary bypass graft; Z95.2 Presence of prosthetic heart valve; Z68.38 Body mass index [BMI] 38.0-38.9, adult; Z86.711 Personal history of pulmonary embolism; E11.319 Type 2 diabetes mellitus with unspecified diabetic retinopathy without macular edema; Z86.718 Personal history of other venous thrombosis and embolism; K76.0 Fatty (change of) liver, not elsewhere classified; E87.5 Hyperkalemia; M54.59 Other low back pain

== ENCOUNTER → 2025-08-17 | Outpatient (POV) | payer MEDICARE ==
[~2025-08-17] MED LIST changes: +CYCL5TAB4 PO; +MINO10TA PO; +NITR0.4S14 SL; +REPA140I2 SC; +SANT250O8 TOP; +TALK1KIT MC
== END ==
LOC: M IRPOV 09:00
PROVIDERS: ATTEND Registered Nurse School
DX: E11.51 Type 2 diabetes mellitus with diabetic peripheral angiopathy without gangrene (principal); E11.621 Type 2 diabetes mellitus with foot ulcer; E11.622 Type 2 diabetes mellitus with other skin ulcer; L97.822 Non-pressure chronic ulcer of other part of left lower leg with fat layer exposed; L97.429 Non-pressure chronic ulcer of left heel and midfoot with unspecified severity; I10 Essential (primary) hypertension; F17.210 Nicotine dependence, cigarettes, uncomplicated; Z79.82 Long term (current) use of aspirin; Z79.4 Long term (current) use of insulin; Z79.85 Long-term (current) use of injectable non-insulin antidiabetic drugs; Z79.899 Other long term (current) drug therapy; Z82.49 Family history of ischemic heart disease and other diseases of the circulatory system; Z83.3 Family history of diabetes mellitus; Z80.9 Family history of malignant neoplasm, unspecified